=== PATIENT | male | born 1950 | race Caucasian/White ===

== ENCOUNTER 2018-04-30 18:54 | Emergency (ER) | payer OTHER ==
[2018-04-30] MEDS ORDERED: PANTOPRAZOLE 40 MG INJ ONE (19:25)
[2018-04-30] MEDS ORDERED: ONDANSETRON 4 MG/2 ML VIAL ONE (19:25)
[2018-04-30 20:14] LABS: Absolute Lymphocytes (CBC) 1.4 K/uL (0.7-4.9); Absolute Monocytes 0.5 K/uL (0.1-1.3); Absolute Neutrophil 6.9 K/uL (1.8-8.0); Basophils % 0.8 % (0-1.3); Eosinophils % 1.1 % (0-4.4); Hematocrit 42.2 % (39.6-49.0); Lymphocytes % 15.5 % (15.3-44.8); MCH 31.8 pg (27.0-35.0); MPV 10.1 fL (7.6-11.3); Monocytes % 5.1 % (3.3-12.3); RBC Red Blood Cell Count 4.49 M/uL (4.33-5.43)
[2018-04-30 20:20] LABS: Albumin 3.9 g/dL (3.4-5.0); Bilirubin Direct 0.2 mg/dL (0-0.2); Bilirubin Total 0.7 mg/dL (0.2-1.0); Magnesium 2.5 mg/dL (1.8-2.4); Potassium 4.1 mmol/L (3.5-5.1)
--- NOTE | 2018-04-30 21:26 | RAD REPORT ---
EXAM DESCRIPTION: CT - Abdomen Pelvis Wo Contrast - 04/30/2018 9:20 pm CLINICAL HISTORY: Abdominal pain and vomiting COMPARISON: April 2017 TECHNIQUE: Computed axial tomography of the abdomen and pelvis was obtained. IV and oral contrast we re not requested. All CT scans are performed using dose optimization technique as appropriate and may include automated exposure control or mA/KV adjustment according to patient size. FINDINGS: The evaluation of solid organs, vessels and bowel is limited secondary to the lack of con trast administration. The liver, spleen, pancreas, and adrenals appear grossly normal. Small renal cysts are present. Small hemorrhagic left renal cyst is unchanged. The appendix is normal. There is no evidence of diverticulitis. The rectum is distended with stool measuring 9 centimeters. This compresses the bladder. All A large amount stool is present throughout the remainder of the colon. A small hiatal hernia is present. IMPRESSION: The patient likely has a fecal impaction.
[2018-04-30] MEDS ORDERED: MAGNESIUM CITRATE 300 ML BOT ONE (22:29)
[2018-04-30] MEDS ORDERED: FLEET ENEMA ADULT PR ONE (22:29)
[2018-04-30 22:41] LABS: Urine Bacteria <20 /HPF (NONE SEEN); Urine Culture Reflex Order NOT NEEDED; Urine RBC NONE SEEN /HPF (NONE SEEN)
[2018-04-30 22:42] LABS: Urine Blood NEGATIVE (NEG); Urine Glucose NEGATIVE (NEG); Urine Protein 1+ (NEG)
--- NOTE | 2018-05-01 00:29 | ER ---
Nurse's Notes [facility] Name: Jason Johnson Age: 68 yrs Sex: Male : 1950 Arrival Date: 04/30/2018 Time: 18:58 Bed 5 Private MD: Diagnosis: Nausea and vomiting;Fecal impaction;Constipation Presentation: 04/30 19:02 Presenting complaint: EMS states: sudden onset of vomiting while eating at [employer], iw denies abd pain, EMS reports pt was pale and diaphoretic on scene, also had generalized weakness. Transition of care: patient was not received from another setting of care. Onset of symptoms was April 30, 2018. Risk Assessment: Do you want to hurt yourself or someone else? Patient reports no desire to harm self or others. Initial Sepsis Screen: Does the patient meet any 2 criteria? No. Patient's initial sepsis screen is negative. Does the patient have a suspected source of infection? No. Patient's initial sepsis screen is negative. Care prior to arrival: Medication(s) given: zofran 4 mg, IV initiated. 18 GA, in the right antecubital area. 19:02 Method Of Arrival: EMS: [facility] iw 19:02 Acuity: NINA 3 iw Historical: - Allergies: 19:04 No Known Allergies; iw - Home Meds: 05/01 01:06 aspirin 81 mg Oral TbEC 1 tab once daily [Active]; multivitamin Oral tab daily lp1 [Active]; Probiotic oral oral [Active]; - PMHx: 04/30 19:04 constipation; CVA; Hypertension; iw - PSHx: 19:04 Tonsillectomy; iw - Immunization history:: Adult Immunizations. - Social history:: Smoking status: Patient/guardian denies using tobacco. - Ebola Screening: : Patient negative for fever greater than or equal to 101.5 degrees Fahrenheit, and additional compatible Ebola Virus Disease symptoms Patient denies exposure to infectious person Patient denies travel to an Ebola-affected area in the 21 days before illness onset No symptoms or risks identified at this time. Screenin:17 Abuse screen: Denies threats or abuse. Denies injuries from another. Nutritional iw screening: No deficits noted. Tuberculosis screening: No symptoms or risk factors identified. Fall Risk IV access (20 points). Assessment: 19:00 General: Appears uncomfortable, Behavior is calm, cooperative, appropriate for age. ea Pain: Complains of pain in right lower quadrant and left lower quadrant Pain currently is 6 out of 10 on a pain scale. Quality of pain is described as aching, pressure. Neuro: Level of Consciousness is awake, alert, obeys commands, Oriented to person, place, time, situation. Cardiovascular: Heart tones S1 S2 present Patient's skin is warm and dry. Respiratory: Airway is patent Respiratory effort is even, unlabored, Respiratory pattern is regular, symmetrical, Breath sounds are clear bilaterally. GI: Abdomen is non-distended, Bowel sounds present X 4 quads. Reports vomiting. : No signs and/or symptoms were reported regarding the genitourinary system. EENT: No signs and/or symptoms were reported regarding the EENT system. Derm: Skin is pink, warm \\T\\ dry. Musculoskeletal: Range of motion: intact in all extremities. 20:30 Reassessment: Patient and/or family updated on plan of care and expected duration. Pain ea level reassessed. Patient is alert, oriented x 3, equal unlabored respirations, skin warm/dry/pink. 21:08 Reassessment: Patient and/or family updated on plan of care and expected duration. Pain ea level reassessed. Patient is alert, oriented x 3, equal unlabored respirations, skin warm/dry/pink. Pt taken to CT. 22:15 Reassessment: Patient is alert, oriented x 3, equal unlabored respirations, skin lp1 warm/dry/pink. Denies any nausea; Patient states feeling better. 23:45 Reassessment: Patient had small BM at this time; small amount of stool noted to be in lp1 bsc and on floor. 05/01 00:15 Reassessment: Patient walking around room, states "it's still dripping out"; Patient lp1 and linens cleaned and changed at this time. 00:50 Reassessment: Patient is alert, oriented x 3, equal unlabored respirations, skin lp1 warm/dry/pink. Patient states feeling better. Patient states symptoms have improved. Vital Signs: 04/30 19:04 BP 157 / 103; Pulse 57; Resp 16 S; Temp 97.2; Pulse Ox 100% on R/A; Pain 0/10; iw 20:00 BP 163 / 99; Pulse 52; Resp 12; Pulse Ox 100% on R/A; lp1 21:00 BP 170 / 100; Pulse 55; Resp 15; Pulse Ox 100% on R/A; lp1 22:15 BP 145 / 91; Pulse 57; Resp 13; Pulse Ox 100% on R/A; lp1 05/01 00:00 BP 152 / 90; Pulse 54; Resp 18; Pulse Ox 98% on R/A; lp1 ED Course: 04/30 18:58 Patient arrived in ED. iw 19:00 Patient has correct armband on for positive identification. Placed in gown. Bed in low ea position. Call light in reach. Side rails up X2. 19:04 Triage completed. iw 19:04 Arm band placed on. iw 19:07 Felipe Pena PA is PHCP. cp 19:07 Kaden Gutierrez MD is Attending Physician. cp 19:17 Maintain EMS IV. Dressing intact. Good blood return noted. Site clean \\T\\ dry. Gauge \\T\\ iw site: 18 RAC. 19:24 Tiffany Roman RN is Primary Nurse. lp1 19:45 Oral contrast reported to be complete. eh 21:19 Abdomen In Process Unspecified. 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 Provider performing disimpaction. lp1 22:57 Mason Velasquez MD is Attending Physician. cp 23:00 PHCP role handed off by Felipe Pena PA pm1 23:00 Anderson Marcus NP is PHCP. pm1 05/01 01:05 IV discontinued, No redness/swelling at site. Pressure dressing applied. lp1 Administered Medications: 04/30 19:26 Drug: Zofran 4 mg Route: IVP; Site: right antecubital; ea 20:00 Follow up: Response: Marked relief of symptoms lp1 19:26 Drug: ProTONIX 40 mg Route: IVP; Site: right antecubital; ea 20:00 Follow up: Response: No adverse reaction lp1 22:45 Drug: Fleet Enema 133 ml Route: [place]; lp1 05/01 00:59 Follow up: Response: Marked relief of symptoms lp1 04/30 22:50 Drug: Magnesium Citrate Liquid 300 ml Route: PO; lp1 05/01 00:59 Follow up: Response: No adverse reaction lp1 00:30 Drug: soap suds enema 1 per protocol Route: [place]; lp1 01:01 Follow up: Response: Marked relief of symptoms lp1 Outcome: 00:29 Discharge ordered by . pm1 01:05 Discharged to home ambulatory, with friend. lp1 01:05 Condition: good 01:05 Discharge instructions given to patient, Instructed on discharge instructions, follow up and referral plans. medication usage, Demonstrated understanding of instructions, follow-up care, medications, Prescriptions given X 3. 01:06 Patient left the ED. lp1 Signatures: Dispatcher [employer] EDAugustus Ram Irene, RN JAVI iw Tiffany Roman RN RN lp1 Felipe Pena PA PA Anderson Dawson, TOM RECREATION WORKER pm1 Madeleine Snowden RN RN ea Corrections: (The following items were deleted from the chart) 01:01 01:00 soap suds enema 1 per protocol [place] lp1 lp1
--- NOTE | 2018-05-01 00:29 | EDPHYS ---
Physician Documentation [facility] Name: Jason Johnson Age: 68 yrs Sex: Male : 1950 Arrival Date: 04/30/2018 Time: 18:58 Bed 5 Private MD: ED Physician Mason Velasquez HPI: 04/30 19:20 This 68 yrs old Male presents to ER via EMS with complaints of cp Nausea/Vomiting. 19:20 The patient presents to the emergency department with nausea, with "dry heaves", cp vomiting, that is continuous. 19:20 Onset: The symptoms/episode began/occurred today, at 18:00. cp 19:20 Possible causes: unknown. Associated signs and symptoms: Pertinent positives: abdominal cp pain, constipation, Pertinent negatives: fever, GI bleeding, chest pain. Severity of symptoms: in the emergency department the symptoms are unchanged despite EMS interventions. Historical: - Allergies: 19:04 No Known Allergies; iw - Home Meds: 05/01 01:06 aspirin 81 mg Oral TbEC 1 tab once daily [Active]; multivitamin Oral tab daily lp1 [Active]; Probiotic oral oral [Active]; - PMHx: 04/30 19:04 constipation; CVA; Hypertension; iw - PSHx: 19:04 Tonsillectomy; iw - Immunization history:: Adult Immunizations. - Social history:: Smoking status: Patient/guardian denies using tobacco. - Ebola Screening: : Patient negative for fever greater than or equal to 101.5 degrees Fahrenheit, and additional compatible Ebola Virus Disease symptoms Patient denies exposure to infectious person Patient denies travel to an Ebola-affected area in the 21 days before illness onset No symptoms or risks identified at this time. ROS: 19:25 Constitutional: Negative for body aches, chills, fever, poor PO intake. cp 19:25 Eyes: Negative for injury, pain, redness, and discharge. cp 19:25 ENT: Negative for drainage from ear(s), ear pain, sore throat, difficulty swallowing, difficulty handling secretions. 19:25 Cardiovascular: Negative for chest pain, edema, palpitations. 19:25 Respiratory: Negative for cough, shortness of breath, wheezing. 19:25 Abdomen/GI: Positive for nausea, vomiting, constipation, Negative for abdominal pain, diarrhea, hematemesis, black/tarry stool, rectal bleeding. 19:25 Back: Negative for pain at rest, pain with movement, radiated pain. 19:25 : Positive for difficulty urinating. 19:25 Skin: Negative for cellulitis, rash. 19:25 Neuro: Negative for altered mental status, headache, syncope, near syncope, weakness. 19:25 All other systems are negative. Exam: 21:00 ECG was reviewed by the Attending Physician. cp 05/01 00:00 Constitutional: This is a well developed, well nourished patient who is awake, alert, pm1 and in no acute distress. Head/Face: Normocephalic, atraumatic. Eyes: Pupils equal round and reactive to light, extra-ocular motions intact. Lids and lashes normal. Conjunctiva and sclera are non-icteric and not injected. Cornea within normal limits. Periorbital areas with no swelling, redness, or edema. ENT: Nares patent. No nasal discharge, no septal abnormalities noted. Tympanic membranes are normal and external auditory canals are clear. Oropharynx with no redness, swelling, or masses, exudates, or evidence of obstruction, uvula midline. Mucous membranes moist. Neck: Trachea midline, no thyromegaly or masses palpated, and no cervical lymphadenopathy. Supple, full range of motion without nuchal rigidity, or vertebral point tenderness. No Meningismus. Chest/axilla: Normal chest wall appearance and motion. Nontender with no deformity. No lesions are appreciated. Cardiovascular: Regular rate and rhythm with a normal S1 and S2. No gallops, murmurs, or rubs. Normal PMI, no JVD. No pulse deficits. Respiratory: Lungs have equal breath sounds bilaterally, clear to auscultation and percussion. No rales, rhonchi or wheezes noted. No increased work of breathing, no retractions or nasal flaring. Abdomen/GI: Soft, non-tender, with normal bowel sounds. No distension or tympany. No guarding or rebound. No evidence of tenderness throughout. Back: No spinal tenderness. No costovertebral tenderness. Full range of motion. Skin: Warm, dry with normal turgor. Normal color with no rashes, no lesions, and no evidence of cellulitis. MS/ Extremity: Pulses equal, no cyanosis. Neurovascular intact. Full, normal range of motion. Neuro: Orientation: is normal, Motor: is normal, Gait: is steady, at a normal pace, without difficulty. Vital Signs: 04/30 19:04 BP 157 / 103; Pulse 57; Resp 16 S; Temp 97.2; Pulse Ox 100% on R/A; Pain 0/10; iw 20:00 BP 163 / 99; Pulse 52; Resp 12; Pulse Ox 100% on R/A; lp1 21:00 BP 170 / 100; Pulse 55; Resp 15; Pulse Ox 100% on R/A; lp1 22:15 BP 145 / 91; Pulse 57; Resp 13; Pulse Ox 100% on R/A; lp1 05/01 00:00 BP 152 / 90; Pulse 54; Resp 18; Pulse Ox 98% on R/A; lp1 MDM: 04/30 19:10 Patient medically screened. 19:30 Differential diagnosis: gastritis, cholecystitis, pancreatitis, appendicitis, cp diverticulitis, viral gastroenteritis, gastroenteritis, acute IL. 05/01 00:29 Data reviewed: vital signs. Data interpreted: Pulse oximetry: on room air is 100 %. pm1 Interpretation: normal. Counseling: I had a detailed discussion with the patient and/or guardian regarding: the historical points, exam findings, and any diagnostic results supporting the discharge/admit diagnosis, lab results, radiology results, the need for outpatient follow up, to return to the emergency department if symptoms worsen or persist or if there are any questions or concerns that arise at home. 01:15 ED course: Patient positive for large amount of stool with soap suds enema. pm1 04/30 19:16 Order name: Amylase, Serum; Complete Time: 21:20 04/30 19:16 Order name: Basic Metabolic Panel; Complete Time: 21:20 cp 04/30 21:21 Interpretation: Normal except: NA 146; CL 111; BUN 25; CRE 1.90; GFR 36. cp 04/30 19:16 Order name: CBC with Diff; Complete Time: 21:20 cp 04/30 21:21 Interpretation: Normal except: LIZY% 77.5. cp 04/30 19:16 Order name: Creatinine for Radiology; Complete Time: 21:20 cp 04/30 19:16 Order name: Hepatic Function; Complete Time: 21:20 cp 04/30 19:16 Order name: Lipase; Complete Time: 21:20 cp 04/30 19:16 Order name: Urine Microscopic Only; Complete Time: 22:42 cp 04/30 19:16 Order name: Magnesium; Complete Time: 21:20 cp 04/30 19:16 Order name: Troponin I; Complete Time: 21:20 cp 04/30 21:04 Order name: Abdomen ; Complete Time: 21:28 EDMS 04/30 22:36 Order name: Urine Dipstick--Ancillary (enter results); Complete Time: 22:42 mt 04/30 19:16 Order name: IV Saline Lock; Complete Time: 21:07 cp 04/30 19:16 Order name: Labs collected and sent; Complete Time: 21:07 cp 04/30 19:16 Order name: Urine Dipstick-Ancillary (obtain specimen); Complete Time: 22:57 cp 04/30 19:16 Order name: EKG; Complete Time: 19:16 cp 04/30 19:16 Order name: EKG - Nurse/Tech; Complete Time: 21:07 cp EC/22 21:00 Rate is 52 beats/min. Rhythm is regular. OH interval is prolonged at 204 msec. QRS cp interval is normal. QT interval is prolonged at 460 msec. Interpreted by me. Reviewed by me. Administered Medications: 19:26 Drug: Zofran 4 mg Route: IVP; Site: right antecubital; ea 20:00 Follow up: Response: Marked relief of symptoms lp1 19:26 Drug: ProTONIX 40 mg Route: IVP; Site: right antecubital; ea 20:00 Follow up: Response: No adverse reaction lp1 22:45 Drug: Fleet Enema 133 ml Route: [place]; lp1 05/01 00:59 Follow up: Response: Marked relief of symptoms lp1 04/30 22:50 Drug: Magnesium Citrate Liquid 300 ml Route: PO; lp1 05/01 00:59 Follow up: Response: No adverse reaction lp1 00:30 Drug: soap suds enema 1 per protocol Route: [place]; lp1 01:01 Follow up: Response: Marked relief of symptoms lp1 Disposition: 19:46 Co-signature as Attending Physician, Mason Velasquez MD. Disposition: 05/01/18 00:29 Discharged to Home. Impression: Nausea and vomiting, Fecal impaction, Constipation. - Condition is Stable. - Discharge Instructions: Dehydration, Adult, Nausea and Vomiting, Adult. - Prescriptions for Pepcid 20 mg Oral Tablet - take 1 tablet by ORAL route every 12 hours for 10 days; 20 tablet. Zofran 4 mg Oral Tablet - take 1 tablet by ORAL route every 12 hours As needed; 20 tablet. Miralax 17 gram/dose Oral - take 1 packet by ORAL route once daily As needed dilute powder in 8 ounces of water or juice; 30 packet. - Medication Reconciliation Form, Thank You Letter, Antibiotic Education, Prescription Opioid Use form. - Follow up: Private Physician; When: 1 - 2 days; Reason: Recheck today's complaints. - Problem is new. - Symptoms have improved. Signatures: Dispatcher [employer] [facility] Sis Elizalde RN RN iw Tiffany Roman RN RN lp1 Felipe Pena PA PA cp Marinas, Patrick, TOM BILINGUAL BRANCH MANAGER pm1 Madeleine Snowden RN RN ea Starr, Gregory, MD MD gs Corrections: (The following items were deleted from the chart) 04/30 21:04 19:16 Abdomen Pelvis W Con+CT.RAD.BRZ ordered. [facility] 05/01 01:06 00:29 05/01/2018 00:29 Discharged to Home. Impression: Nausea and vomiting; Fecal lp1 impaction; Constipation. Condition is Stable. Discharge Instructions: Dehydration, Adult, Nausea and Vomiting, Adult. Prescriptions for Pepcid 20 mg Oral Tablet - take 1 tablet by ORAL route every 12 hours for 10 days; 20 tablet, Zofran 4 mg Oral Tablet - take 1 tablet by ORAL route every 12 hours As needed; 20 tablet, Miralax 17 gram/dose Oral - take 1 packet by ORAL route once daily As needed dilute powder in 8 ounces of water or juice; 30 packet. and Forms are Medication Reconciliation Form, Thank You Letter, Antibiotic Education, Prescription Opioid Use. Follow up: Private Physician; When: 1 - 2 days; Reason: Recheck today's complaints. Problem is new. Symptoms have improved. pm1
[2018-05-01 01:11] VITALS: TEMP 97.2
[2018-05-01 01:15] VITALS: BP 152/90; O2SAT 98
--- NOTE | 2018-05-01 16:30 | EKG ---
Test Date: 2018-04-30 Test Time: 20:54:27 Shot Packer: KEITH MEASUREMENT RESULTS: Intervals: Rate: 52 DC: 204 QRSD: 86 QT: 460 QTc: 427 [place]: P: 19 DC: 204 QRS: 19 T: -55 INTERPRETIVE STATEMENTS: Sinus bradycardia Nonspecific ST abnormality Abnormal QRS-T angle, consider primary T wave abnormality Abnormal ECG Compared to ECG 05/03/2017 21:38:32 T-wave abnormality now present Sinus rhythm no longer present Left ventricular hypertrophy no longer present ST (T wave) deviation still present Electronically Signed On 05-01-18 16:27:42 CDT by Michael Laguna
== END 2018-05-01 01:06 | disposition home or self-care (01) ==
LOC: ER 18:54
DX: K56.41 Fecal impaction (principal); I10 Essential (primary) hypertension; Z79.82 Long term (current) use of aspirin
CPT/HCPCS: 36415; 74176; 80048; 80076; 82150; 83690; 83735; 84484; 85025; 93005; 96374; 96375; 99284; C9113; J2405; 81003; 81015

== ENCOUNTER 2018-06-13 19:45 | Observation (INO) | payer OTHER ==
[2018-06-13 20:27] LABS: Protime INR 1.13
[2018-06-13 20:28] LABS: Absolute Monocytes 0.4 K/uL (0.1-1.3); Absolute Neutrophil 3.9 K/uL (1.8-8.0); Basophils % 1.3 % (0-1.3); Eosinophils % 2.3 % (0-4.4); Hematocrit 40.5 % (39.6-49.0); Lymphocytes % 30.2 % (15.3-44.8); MCH 32.2 pg (27.0-35.0); MCV 94.8 fL (80-100); MPV 9.9 fL (7.6-11.3); Monocytes % 6.4 % (3.3-12.3); RBC Red Blood Cell Count 4.27 M/uL (4.33-5.43)
[2018-06-13 20:41] LABS: ALT/SGPT 16 U/L (12-78); AST/SGOT 8 U/L (15-37); Albumin 3.6 g/dL (3.4-5.0); Alkaline Phosphatase 75 U/L (45-117); BUN Blood Urea Nitrogen 24 mg/dL (7-18); Bicarbonate 28 mmol/L (21-32); Bilirubin Direct 0.3 mg/dL (0-0.2); Glucose Level 128 mg/dL (74-106); Lipase 127 U/L (73-393); Magnesium 2.7 mg/dL (1.8-2.4); NT PRO-BNP 148 pg/mL (<125); Potassium 3.8 mmol/L (3.5-5.1); Protein, Total 7.5 g/dL (6.4-8.2); Sodium Level 142 mmol/L (136-145); Troponin (Emerg Dept Use Only) < 0.02 ng/mL (0.0-0.045)
--- NOTE | 2018-06-13 20:52 | RAD REPORT ---
EXAM DESCRIPTION: RAD - Chest Single View - 06/13/2018 8:38 pm CLINICAL HISTORY: vomiting Chest pain. COMPARISON: Abdomen 1 View (KUB) dated 01/23/2018; Chest Pa And Lat (2 Views) dated 11/06/2017; Abdome n Acute Series dated 05/03/2017; CHEST SINGLE VIEW dated 06/11/2013 FINDINGS: Portable technique limits examination quality. The lungs are grossly clear. The heart is normal in size. No displaced fractures. IMPRESSION: No acute intrathoracic process suspected.
--- NOTE | 2018-06-13 22:13 | RAD REPORT ---
EXAM DESCRIPTION: CT - Abdomen Pelvis Wo Contrast - 06/13/2018 10:00 pm CLINICAL HISTORY: Abdominal pain. NAUSEA / VOMITING COMPARISON: Abdomen Pelvis Wo Contrast dated 04/30/2018; Abdomen Pelvis Wo Contrast dated 05/04/20 17 TECHNIQUE: CT imaging of the abdomen and pelvis was performed without contrast. Solid organ and vasc ular assessment is limited due to lack of IV contrast. All CT scans are performed using dose optimization technique as appropriate and may include automated exposure control or mA/KV adjustment according to patient size. FINDINGS: The lower lung tavares are clear. The liver, spleen, pancreas, adrenal glands and kidneys are within normal limits for a limited non-co ntrast examination. No bowel obstruction, free air, free fluid or abscess. The appendix is normal. Large amount of stool is seen in the rectum and colon in general. No fracture seen.Mild lower lumbar degenerative changes. IMPRESSION: Fecal retention with probable rectal fecal impaction. A limited non-contrast examination was performed as detailed.
[2018-06-13] MEDS ORDERED: FLEET ENEMA ADULT PR ONE (23:39)
--- NOTE | 2018-06-14 00:01 | ER ---
Nurse's Notes [facility] Name: Jason Johnson Age: 68 yrs Sex: Male : 1950 Arrival Date: 06/13/2018 Time: 19:55 Bed 7 Private MD: Diagnosis: Fecal impaction;Constipation, unspecified Presentation: 06/13 19:48 Presenting complaint: EMS states: They were called to a restaurant where patient was ea complaining of vomiting and was dizzy. Pt reports he was not disoriented. Transition of care: patient was not received from another setting of care. Onset of symptoms was June 13, 2018. Risk Assessment: Do you want to hurt yourself or someone else? Patient reports no desire to harm self or others. Initial Sepsis Screen: Does the patient meet any 2 criteria? No. Patient's initial sepsis screen is negative. Does the patient have a suspected source of infection? No. Patient's initial sepsis screen is negative. Care prior to arrival: None. 19:48 Method Of Arrival: EMS: [facility] ea 19:48 Acuity: NINA 3 ea Triage Assessment: 20:15 General: Appears in no apparent distress. Behavior is calm, cooperative, appropriate ea for age. Pain: Denies pain. EENT: No signs and/or symptoms were reported regarding the EENT system. Neuro: Level of Consciousness is awake, alert, obeys commands, Oriented to person, place, time, situation. Cardiovascular: Heart tones S1 S2 present Patient's skin is warm and dry. Respiratory: Airway is patent Respiratory effort is even, unlabored, Respiratory pattern is regular, symmetrical, Breath sounds are clear bilaterally. GI: Abdomen is non-distended, Bowel sounds present X 4 quads. Reports vomiting. Derm: Skin is pink, warm \T\ dry. Historical: - Allergies: 20:14 No Known Allergies; ea - Home Meds: 20:14 aspirin 81 mg Oral TbEC 1 tab once daily [Active]; multivitamin Oral tab daily ea [Active]; Probiotic Oral [Active]; - PMHx: 20:14 constipation; CVA; Hypertension; ea - PSHx: 20:14 Tonsillectomy; ea - Immunization history:: Adult Immunizations up to date. - Social history:: Smoking status: Patient/guardian denies using tobacco. - Ebola Screening: : No symptoms or risks identified at this time. Screenin:17 Abuse screen: Denies threats or abuse. Nutritional screening: No deficits noted. ea Tuberculosis screening: No symptoms or risk factors identified. Fall Risk None identified. Assessment: 19:48 Reassessment: see triage assessment. tl2 20:30 Reassessment: Lui Mendes [phone] Call with patient disposition. tl2 20:55 Reassessment: Patient and/or family updated on plan of care and expected duration. Pain tl2 level reassessed. Patient is alert, oriented x 3, equal unlabored respirations, skin warm/dry/pink. 23:03 Reassessment: setting up soap suds enema. tl2 06/14 00:39 Reassessment: Patient and/or family updated on plan of care and expected duration. Pain ea level reassessed. Patient is alert, oriented x 3, equal unlabored respirations, skin warm/dry/pink. 01:22 Reassessment: Patient and/or family updated on plan of care and expected duration. Pain ea level reassessed. Patient is alert, oriented x 3, equal unlabored respirations, skin warm/dry/pink. Vital Signs: 06/13 19:58 BP 130 / 95; Pulse 52; Resp 18; Temp 97.6; Pulse Ox 98% ; Weight 79.38 kg; Height 6 ft. ea 2 in. (187.96 cm); Pain 0/10; 20:38 BP 145 / 96; Pulse 56; Resp 12; Pulse Ox 96% on R/A; ea 21:55 BP 143 / 90; Pulse 58; Resp 20; Pulse Ox 98% on R/A; tl2 23:01 BP 151 / 103; Pulse 69; Resp 20; Pulse Ox 99% on R/A; tl2 06/14 00:39 BP 130 / 80; Pulse 60; Resp 18; Temp 97.6; Pulse Ox 99% ; Pain 0/10; ea 01:23 BP 128 / 78; Pulse 58; Resp 18; Pulse Ox 98% on R/A; ea 06/13 19:58 Body Mass Index 22.47 (79.38 kg, 187.96 cm) ea ED Course: 06/13 19:48 Arm band placed on right wrist. Patient placed in an exam room, on a stretcher, on ea pulse oximetry, Emesis basin given. 19:55 Patient arrived in ED. ea 19:57 Felipe Pena PA is PHCP. cp 19:57 Toy Alvarez MD is Attending Physician. cp 19:58 Triage completed. ea 20:05 Inserted saline lock: 20 gauge in right antecubital area, using aseptic technique. tl2 Blood collected. 20:13 Madeleine Snowden, RN is Primary Nurse. ea 20:17 Patient has correct armband on for positive identification. Placed in gown. Bed in low ea position. Call light in reach. Side rails up X2. 20:37 XRAY Chest (1 view) In Process Unspecified. EDMS 22:00 CT Abd/Pelvis - Without Cont: give oral contrast In Process Unspecified. EDMS 22:00 CT completed. Patient tolerated procedure well. Patient moved back from CT. pr 23:59 Tommy Altamirano MD is Hospitalizing Provider. cp 06/14 00:40 No provider procedures requiring assistance completed. Patient admitted, IV remains in ea place. Administered Medications: 06/13 23:40 Drug: Fleet Enema 133 ml Route: WI; ea 06/14 00:30 Follow up: Response: No adverse reaction ea Outcome: 00:00 Decision to Hospitalize by Provider. cp 00:50 Instructed on the need for admit, Demonstrated understanding of instructions. ea 01:28 Condition: stable ea 01:42 Admitted to Med/surg accompanied by nurse, room 209, Report called to receiving nurse ea on second floor 01:53 Patient left the ED. jd3 Signatures: Dispatcher [employer] EDND Felipe Pena PA PA cp Knox, Taylor, RN RN tl2 Juan Flores pr Madeleine Snowden, JAVI RN Mirza Maharaj RN RN jd3
--- NOTE | 2018-06-14 00:01 | EDPHYS ---
Physician Documentation [facility] Name: Jason Johnson Age: 68 yrs Sex: Male : 1950 Arrival Date: 06/13/2018 Time: 19:55 Bed 7 Private MD: ED Physician Toy Alvarez HPI: 06/13 20:10 This 68 yrs old Male presents to ER via EMS with complaints of Vomiting. cp 20:10 The patient presents to the emergency department with nausea, that is mild, vomiting, 2 cp times today, constipation. Onset: The symptoms/episode began/occurred just prior to arrival. Possible causes: unknown. Associated signs and symptoms: Pertinent negatives: abdominal pain, diarrhea, fever, GI bleeding, chest pain. Severity of symptoms: in the emergency department the symptoms have improved mildly. Historical: - Allergies: 20:14 No Known Allergies; ea - Home Meds: 20:14 aspirin 81 mg Oral TbEC 1 tab once daily [Active]; multivitamin Oral tab daily ea [Active]; Probiotic Oral [Active]; - PMHx: 20:14 constipation; CVA; Hypertension; ea - PSHx: 20:14 Tonsillectomy; ea - Immunization history:: Adult Immunizations up to date. - Social history:: Smoking status: Patient/guardian denies using tobacco. - Ebola Screening: : No symptoms or risks identified at this time. ROS: 20:13 Constitutional: Negative for body aches, chills, fever, poor PO intake. cp 20:13 Eyes: Negative for injury, pain, redness, and discharge. cp 20:13 ENT: Negative for drainage from ear(s), ear pain, sore throat, difficulty swallowing, difficulty handling secretions. 20:13 Cardiovascular: Negative for chest pain, edema, palpitations. 20:13 Respiratory: Negative for cough, shortness of breath, wheezing. 20:13 Abdomen/GI: Positive for vomiting, constipation, Negative for abdominal pain, diarrhea, anorexia, black/tarry stool, rectal bleeding. 20:13 Skin: Negative for cellulitis, rash. 20:13 Neuro: Negative for altered mental status, headache, weakness. 20:13 All other systems are negative. Exam: 20:15 ECG was reviewed by the Attending Physician. cp 20:20 Constitutional: The patient appears in no acute distress, alert, awake, cp non-diaphoretic, non-toxic, well developed, well nourished. 20:20 Head/Face: Normocephalic, atraumatic. Eyes: Pupils equal round and reactive to light, cp extra-ocular motions intact. Lids and lashes normal. Conjunctiva and sclera are non-icteric and not injected. Cornea within normal limits. Periorbital areas with no swelling, redness, or edema. ENT: Nares patent. No nasal discharge, no septal abnormalities noted. Tympanic membranes are normal and external auditory canals are clear. Oropharynx with no redness, swelling, or masses, exudates, or evidence of obstruction, uvula midline. Mucous membranes moist. Chest/axilla: Normal chest wall appearance and motion. Nontender with no deformity. No lesions are appreciated. 20:20 Cardiovascular: Rate: bradycardic, Rhythm: regular, Edema: is not appreciated, JVD: is not appreciated. 20:20 Respiratory: the patient does not display signs of respiratory distress, Respirations: normal, no use of accessory muscles, no retractions, no splinting, no tachypnea, labored breathing, is not present, Breath sounds: are clear throughout, no decreased breath sounds, no stridor, no wheezing. 20:20 Abdomen/GI: Inspection: abdomen appears normal, Bowel sounds: active, all quadrants, Palpation: abdomen is soft and non-tender, in all quadrants, rebound tenderness, is not appreciated, voluntary guarding, is not appreciated, involuntary guarding, is not appreciated. 20:20 Back: CVA tenderness, is absent. 20:20 Skin: cellulitis, is not appreciated, no rash present. 20:20 Neuro: Orientation: to person, place \T\ time. Cerebellar function: is grossly normal, Motor: moves all fours, strength is normal, Sensation: no obvious gross deficits. Vital Signs: 19:58 BP 130 / 95; Pulse 52; Resp 18; Temp 97.6; Pulse Ox 98% ; Weight 79.38 kg; Height 6 ft. ea 2 in. (187.96 cm); Pain 0/10; 20:38 BP 145 / 96; Pulse 56; Resp 12; Pulse Ox 96% on R/A; ea 21:55 BP 143 / 90; Pulse 58; Resp 20; Pulse Ox 98% on R/A; tl2 23:01 BP 151 / 103; Pulse 69; Resp 20; Pulse Ox 99% on R/A; tl2 06/14 00:39 BP 130 / 80; Pulse 60; Resp 18; Temp 97.6; Pulse Ox 99% ; Pain 0/10; ea 01:23 BP 128 / 78; Pulse 58; Resp 18; Pulse Ox 98% on R/A; ea 06/13 19:58 Body Mass Index 22.47 (79.38 kg, 187.96 cm) ea MDM: 06/13 19:57 Patient medically screened. cp 22:20 Data reviewed: vital signs, nurses notes, lab test result(s), EKG, radiologic studies, cp CT scan, plain films. 22:20 Test interpretation: by ED physician or midlevel provider: ECG. cp 23:55 Physician consultation: Tommy Altamirano MD was called at 23:55, was contacted at 23:55, cp regarding admission, to the medical/surgical unit. patient's condition. 06/13 20:02 Order name: Basic Metabolic Panel cp 06/13 20:02 Order name: CBC with Diff cp 06/13 20:02 Order name: LFT's cp 06/13 20:02 Order name: Magnesium cp 06/13 20:02 Order name: NT PRO-BNP cp 06/13 20:02 Order name: PT-INR; Complete Time: 20:54 cp 06/13 22:18 Interpretation: Abnormal: PT 13.3. cp 06/13 20:02 Order name: Troponin (emerg Dept Use Only); Complete Time: 20:54 cp 06/13 20:02 Order name: XRAY Chest (1 view); Complete Time: 20:54 cp 06/13 20:02 Order name: Lipase; Complete Time: 20:54 cp 06/13 20:03 Order name: Basic Metabolic Panel; Complete Time: 20:54 EDMS 06/13 20:55 Interpretation: Normal except: CL 108; GLUC 128; BUN 24; CRE 2.00; GFR 33. cp 06/13 20:03 Order name: CBC with Automated Diff; Complete Time: 20:54 EDMS 06/13 22:17 Interpretation: Normal except: RBC 4.27. cp 06/13 20:03 Order name: Liver (Hepatic) Function; Complete Time: 20:54 EDMS 06/13 20:03 Order name: Magnesium; Complete Time: 20:54 EDMS 06/13 20:03 Order name: NT PRO-BNP; Complete Time: 20:54 EDMS 06/13 20:02 Order name: EKG; Complete Time: 20:03 cp 06/13 20:02 Order name: Cardiac monitoring; Complete Time: 20:04 cp 06/13 20:02 Order name: EKG - Nurse/Tech; Complete Time: 20:05 cp 06/13 20:02 Order name: IV Saline Lock; Complete Time: 20:04 cp 06/13 20:02 Order name: Labs collected and sent; Complete Time: 20:04 cp 06/13 20:02 Order name: O2 Per Protocol; Complete Time: 20:04 cp 06/13 20:02 Order name: O2 Sat Monitoring; Complete Time: 20:05 cp 06/13 20:56 Order name: CT Abd/Pelvis - Without Cont: give oral contrast; Complete Time: 22:17 cp 06/13 22:21 Order name: Misc. Order: soap suds enema; Complete Time: 23:17 cp EC:15 Rate is 49 beats/min. Rhythm is regular. OK interval is prolonged at 212 msec. QRS cp interval is normal. QT interval is normal. Interpreted by me. Reviewed by me. Administered Medications: 23:40 Drug: Fleet Enema 133 ml Route: OK; ea 06/14 00:30 Follow up: Response: No adverse reaction ea Disposition: 01:58 Co-signature as Attending Physician, Toy Alvarez MD. pkl Disposition: 06/14/18 00:00 Hospitalization ordered by Tommy Altamirano for Observation. Preliminary diagnosis are Fecal impaction, Constipation, unspecified. - Bed requested for Telemetry/MedSurg (observation). - Status is Observation. jd3 - Condition is Stable. - Problem is an acute exacerbation. - Symptoms have improved. UTI on Admission? No Signatures: Dispatcher [employer] EDOH Toy Alvarez MD MD pkl Felipe Pena PA PA cp Garcia, Cindy, Madeleine Woodard RN, RN RN ea Davies, Jonathon, RN RN jd3 Corrections: (The following items were deleted from the chart) 06/13 20:58 20:26 Abdomen Pelvis W Con+CT.RAD.BRZ ordered. EDOH EDOH 06/14 00:28 00:00 Hospitalization Ordered by Tommy Altamirano MD for Observation. Preliminary cg diagnosis is Fecal impaction; Constipation, unspecified. Bed requested for Telemetry/MedSurg (observation). Status is Observation. Condition is Stable. Problem is an acute exacerbation. Symptoms have improved. UTI on Admission? No. cp 01:53 00:28 06/14/2018 00:00 Hospitalization Ordered by Tommy Altamirano MD for Observation. jd3 Preliminary diagnosis is Fecal impaction; Constipation, unspecified. Bed requested for Telemetry/MedSurg (observation). Status is Observation. Condition is Stable. Problem is an acute exacerbation. Symptoms have improved. UTI on Admission? No. cg
--- NOTE | 2018-06-14 01:29 | P.HP ---
Certification for Inpatient Patient admitted to: Observation With expected LOS: <2 Midnights Practitioner: I am a practitioner with admitting privileges, knowledge of patient current condition, hospital course, and medical plan of care. Services: Services provided to patient in accordance with Admission requirements found in Title 42 Section 412.3 of the Code of Federal Regulations Patient History Date of Service: 06/14/18 Reason for admission: Fecal impaction History of Present Illness: Mr. Johnson is a 68-year-old gentleman with history of hypertension, CKD, CVA, chronic constipation who was having dinner in a local restaurant last night, when he became nauseated and subsequently had a vomiting episode. He was feeling also dizzy as well. EMS was called and then he was transferred to ER. There are no history of fever or chills. He denied any chest pain or shortness of breath. Lab work remarkable for normal WBC count, creatinine 2.0 (about his baseline). CT abdomen and pelvis consistent with large amounts of stool retention with rectal fecal impaction. Allergies No Known Drug Allergies Allergy (Unverified 03/01/15 15:48) Unknown No Known Allergi Allergy (Uncoded 05/04/17 08:07) Unknown No Known Allergies Allergy (Uncoded 05/01/18 01:10) Unknown Home Medications: Amlodipine Besylate [Norvasc] 10 mg PO DAILY #0 tablet 07/26/12 Aspirin [Aspirin EC 81 MG] 162 mg PO DAILY #0 tablet. 07/26/12 Valsartan [Diovan] 160 mg PO DAILY #0 tablet 07/26/12 Atorvastatin Calcium [Lipitor] 40 mg PO DAILY #0 tablet 07/30/12 Hydralazine HCl 25 mg PO TID #0 tablet 07/30/12 Acetaminophen [Tylenol*] 650 mg PO Q6HP PRN #0 tab 06/02/13 levoFLOXacin [Levaquin*] 250 mg PO DAILY #5 tab 06/02/13 - Past Medical/Surgical History Diabetic: No -: CVA -: HTN -: renal insufficiency -: nava Hip FX -: broken ankle R -: tonsillectomy -: nava reconstructive hip SX -: SX R ankle with pins - Social History Smoking Status: Former smoker Alcohol use: No CD- Drugs: No Caffeine use: Yes Place of Residence: Home Review of Systems 10-point ROS is otherwise unremarkable Physical Examination - Physical Exam General: Alert, In no apparent distress HEENT: Atraumatic, PERRLA, Mucous membr. moist/pink, EOMI, Sclerae nonicteric Neck: Supple, 2+ carotid pulse no bruit, No LAD, Without JVD or thyroid abnormality Respiratory: Clear to auscultation bilaterally, Normal air movement Cardiovascular: Regular rate/rhythm, Normal S1 S2 Gastrointestinal: Normal bowel sounds, No tenderness Musculoskeletal: No tenderness Integumentary: No rashes Neurological: Normal speech, Normal strength at 5/5 x4 extr, Normal tone, Normal affect Lymphatics: No axilla or inguinal lymphadenopathy - Studies Laboratory Data (last 24 hrs) 06/13/18 20:00: PT 13.3 H, INR 1.13 06/13/18 20:00: WBC 6.6, Hgb 13.8, Hct 40.5, Plt Count 184 06/13/18 20:00: Sodium 142, Potassium 3.8, BUN 24 H, Creatinine 2.00 H, Glucose 128 H, Magnesium 2.7 H, Total Bilirubin 1.0, AST 8 L, ALT 16, Alkaline Phosphatase 75, Lipase 127 Assessment and Plan - Problems (Diagnosis) (1) CKD (chronic kidney disease) Current Visit: Yes Status: Acute Qualifiers: Chronic kidney disease stage: stage 3 (moderate) Qualified Code(s): N18.3 - Chronic kidney disease, stage 3 (moderate) (2) Nausea & vomiting Current Visit: Yes Status: Acute Qualifiers: Vomiting type: unspecified Vomiting Intractability: non-intractable Qualified Code(s): R11.2 - Nausea with vomiting, unspecified (3) Constipation Current Visit: Yes Status: Acute Qualifiers: Constipation type: chronic idiopathic constipation Qualified Code(s): K59.04 - Chronic idiopathic constipation (4) Fecal impaction Current Visit: Yes Status: Acute - Plan The patient will be admitted under observation due to fecal impaction. Digital disimpaction with subsequent mineral oil enema have been trying with partial results. Will continue with overall protocol in order to disimpact the patient to improve his symptoms. - Advance Directives Does patient have a Living Will: No Does patient have a Durable POA for Healthcare: Yes - Code Status/Comfort Care Code Status Assessed: Yes Code Status: Full Code
[2018-06-14] MEDS ORDERED: ONDANSETRON 4 MG/2 ML VIAL IV PRN (01:46)
[2018-06-14 02:37] VITALS: BMI 23.0
[2018-06-14] MEDS: NA CHLORIDE 0.9% 1,000 ML IV SCH ×2 (02:58→12:00)
[2018-06-14 04:30] VITALS: BP 144/78; TEMP 97.8
[2018-06-14] MEDS ORDERED: INFLUENZA VACCINE (for 3y+) 0.5 ML DOSE IMVAC ONE (06:00)
[2018-06-14] MEDS ORDERED: PNEUMOCOCCAL VACCINE 0.5 ML IMVAC ONE (06:00)
--- NOTE | 2018-06-14 07:50 | EKG ---
Test Date: 2018-06-13 Test Time: 20:06:13 Pharmacy Laboratory Technician: KELLY MEASUREMENT RESULTS: Intervals: Rate: 49 NV: 212 QRSD: 90 QT: 452 QTc: 408 [place]: P: 43 NV: 212 QRS: -11 T: -20 INTERPRETIVE STATEMENTS: Sinus bradycardia with 1st degree AV block Nonspecific ST abnormality Abnormal ECG Compared to ECG 04/30/2018 20:54:27 First degree AV block now present T-wave abnormality no longer present ST (T wave) deviation still present Electronically Signed On 06-14-18 07:48:44 CDT by Michael Laguna
--- NOTE | 2018-06-14 09:16 | P.DS ---
Admission Date: 06/14/18 Discharge Date: 06/14/18 Primary Care Provider: Dr. Stephens; GI-Dr. Bustamante Disposition: ROUTINE DISCHARGE Discharge Condition: GOOD Reason for Admission: Fecal impaction Procedures: CT scan: COMPARISON: Abdomen Pelvis Wo Contrast dated 04/30/2018; Abdomen Pelvis Wo Contrast dated 05/04/2017 TECHNIQUE: CT imaging of the abdomen and pelvis was performed without contrast. Solid organ and vascular assessment is limited due to lack of IV contrast. All CT scans are performed using dose optimization technique as appropriate and may include automated exposure control or mA/KV adjustment according to patient size. FINDINGS: The lower lung tavares are clear. The liver, spleen, pancreas, adrenal glands and kidneys are within normal limits for a limited non-contrast examination. No bowel obstruction, free air, free fluid or abscess. The appendix is normal. Large amount of stool is seen in the rectum and colon in general. No fracture seen.Mild lower lumbar degenerative changes. IMPRESSION: Fecal retention with probable rectal fecal impaction. Medical Problem List: Nausea and vomiting secondary to fecal retention with impaction, resolved Chronic constipation Chronic renal disease Hypertension History CVA Brief History of Present Illness: 68-year-old male presented emergency room with nausea and vomiting. This occurred after he ate supper. Patient was evaluated in the emergency room. CT scan revealed fecal retention with suspected impaction. Patient was admitted for treatment. Patient had mineral oil enema along with manual disimpaction. Hospital Course: Patient presented with nausea, vomiting secondary to fecal retention with impaction. Patient with history of chronic constipation. Patient seen by GI as an outpatient. Patient had mineral oil enema along with manual disimpaction. His symptoms improved. Patient had significant output of stool. Patient able tolerate his diet. Patient reports that he sees GI as an outpatient. He had a colonoscopy in the past year. He reports that this was unremarkable. At discharge he will continue with his current medications including Metamucil and Amitza one pill daily. Patient will need to follow up with GI in the next 1-2 weeks. Patient has a scheduled appointment. Patient may require colonoscopy in the future to further address. Patient continue with a soft diet then advance to a renal diet. Education on constipation will be provided. Patient has chronic renal disease. This remained stable. Patient will follow up with nephrology as an outpatient to further monitor. Future medications will need to be renally dosed. Recommendation on no further use of nonsteroidal anti-inflammatories. Recommendation to recheck lab-BMP in 1-2 weeks to monitor his progress. Patient has hypertension. Patient will continue with his medications- carvedilol 3.125 mg 1 pill twice daily, hydrochlorothiazide 25 mg daily and Avapro 300 mg daily. Recommendation is to maintain blood pressures less 150/ 80. Further adjustment can be done by his PCP. Patient has history of CVA. Patient will continue with his medication-aspirin 81 mg daily. Vital Signs/Physical Exam: Temp Pulse Resp BP Pulse Ox 97.8 F 71 20 144/78 H 100 06/14/18 04:00 06/14/18 04:00 06/14/18 04:00 06/14/18 04:00 06/14/18 04:00 General: Alert, In no apparent distress, Oriented x3, Cooperative HEENT: Atraumatic Neck: Supple Respiratory: Clear to auscultation bilaterally, Normal air movement Cardiovascular: Normal pulses, Regular rate/rhythm Gastrointestinal: Normal bowel sounds, Soft and benign, Non-distended, No ascites, No tenderness, No masses, No rebound, No guarding Musculoskeletal: No erythema, No tenderness, No warmth Integumentary: No tenderness/swelling, No erythema, No warmth, No cyanosis Neurological: Normal speech, Normal strength at 5/5 x4 extr, Normal tone, Normal affect Laboratory Data at Discharge: WBC 6.6 K/uL (4.3-10.9) 06/13/18 20:00 Hgb 13.8 g/dL (13.6-17.9) 06/13/18 20:00 Hct 40.5 % (39.6-49.0) 06/13/18 20:00 Plt Count 184 K/uL (152-406) 06/13/18 20:00 PT 13.3 SECONDS (9.5-12.5) H 06/13/18 20:00 INR 1.13 06/13/18 20:00 Sodium 142 mmol/L (136-145) 06/13/18 20:00 Potassium 3.8 mmol/L (3.5-5.1) 06/13/18 20:00 BUN 24 mg/dL (7-18) H 06/13/18 20:00 Creatinine 2.00 mg/dL (0.55-1.3) H 06/13/18 20:00 Glucose 128 mg/dL (74-106) H 06/13/18 20:00 Magnesium 2.7 mg/dL (1.8-2.4) H 06/13/18 20:00 Total Bilirubin 1.0 mg/dL (0.2-1.0) 06/13/18 20:00 AST 8 U/L (15-37) L 06/13/18 20:00 ALT 16 U/L (12-78) 06/13/18 20:00 Alkaline Phosphatase 75 U/L (45-117) 06/13/18 20:00 Lipase 127 U/L (73-393) 06/13/18 20:00 Home Medications: Aspirin 81 mg PO TID 06/14/18 Carvedilol [Coreg] 3.125 mg PO BID 06/14/18 Irbesartan [Avapro] 300 mg PO DAILY 06/14/18 Omeprazole 20 mg PO DAILY 06/14/18 hydroCHLOROthiazide [Hydrochlorothiazide] 25 mg PO DAILY 06/14/18 Patient Discharge Instructions: 1. Patient will need a follow up with his PCP in 1 week to follow up this hospitalization. 2. Patient presented with nausea , vomiting secondary to fecal retention with impaction. Patient with history of chronic constipation. Patient seen by GI as an outpatient. Patient had mineral oil enema along with manual disimpaction. His symptoms improved. Patient had significant output of stool. Patient able tolerate his diet. Patient reports that he sees GI as an outpatient. He had a colonoscopy in the past year. He reports that this was unremarkable. At discharge he will continue with his current medications including Metamucil and Amitza one pill daily. Patient will need to follow up with GI in the next 1-2 weeks. Patient has a scheduled appointment. Patient may require colonoscopy in the future to further address. Patient continue with a soft diet then advance to a renal diet. Education on constipation will be provided. 3. Patient has chronic renal disease. This remained stable. Patient will follow up with nephrology as an outpatient to further monitor. Future medications will need to be renally dosed. Recommendation on no further use of nonsteroidal anti-inflammatories. Recommendation to recheck lab-BMP in 1-2 weeks to monitor his progress. 4. Patient has hypertension. Patient will continue with his medications- carvedilol 3.125 mg 1 pill twice daily, hydrochlorothiazide 25 mg daily and Avapro 300 mg daily. Recommendation is to maintain blood pressures less 150/ 80. Further adjustment can be done by his PCP. 5. Patient has history of CVA. Patient will continue with his medication-aspirin 81 mg daily. Diet: Soft GI advanced to renal renal diet Activity: Ad sada Time spent managing pt's care (in minutes): 55
[2018-06-14 10:54] VITALS: O2SAT 99
[2018-06-14] MEDS ORDERED: ASPIRIN 81 MG CHEWABLE TABLET PO SCH (14:00)
[2018-06-14] MEDS ORDERED: CARVEDILOL 3.125 MG TAB PO SCH (21:00)
[2018-06-15] MEDS ORDERED: PANTOPRAZOLE 40MG TABLET PO SCH (06:30)
[2018-06-15] MEDS ORDERED: IRBESARTAN 150 MG TAB PO SCH (09:00)
[2018-06-15] MEDS ORDERED: hydroCHLOROthiazide 25 MG TAB PO SCH (09:00)
== END 2018-06-14 12:45 | disposition home or self-care (01) ==
LOC: ER 19:45 → ERHOLD 06-14 00:14 → 2ND 06-14 01:22
PROVIDERS: ADMIT Internal Medicine; ATTEND Internal Medicine
DX: K59.00 Constipation, unspecified (principal); I12.9 Hypertensive chronic kidney disease with stage 1 through stage 4 chronic kidney disease, or unspecified chronic kidney disease; N18.3 Chronic kidney disease, stage 3 (moderate); Z23 Encounter for immunization; Z86.73 Personal history of transient ischemic attack (TIA), and cerebral infarction without residual deficits
CPT/HCPCS: 36415; 71045; 74176; 80048; 80076; 83690; 83735; 83880; 84484; 85025; 85610; 87493; 90670; 93005; 99285; G0008; G0009; G0378 ×2; J7030; Q2035

== ENCOUNTER 2018-08-24 13:23 | Emergency (ER) | payer OTHER ==
[2018-08-24 13:56] LABS: Absolute Lymphocytes (CBC) 1.6 K/uL (0.7-4.9); Absolute Monocytes 0.6 K/uL (0.1-1.3); Absolute Neutrophil 5.8 K/uL (1.8-8.0); Basophils % 0.6 % (0-1.3); Eosinophils % 1.4 % (0-4.4); Hematocrit 41.1 % (39.6-49.0); Lymphocytes % 19.4 % (15.3-44.8); MCH 32.5 pg (27.0-35.0); MCV 94.6 fL (80-100); MPV 9.9 fL (7.6-11.3); Monocytes % 7.3 % (3.3-12.3); RBC Red Blood Cell Count 4.34 M/uL (4.33-5.43)
[2018-08-24 14:01] LABS: Protime INR 1.13
[2018-08-24 14:25] LABS: ALT/SGPT 16 U/L (12-78); AST/SGOT 10 U/L (15-37); Albumin 3.6 g/dL (3.4-5.0); Alkaline Phosphatase 84 U/L (45-117); BUN Blood Urea Nitrogen 23 mg/dL (7-18); Bicarbonate 27 mmol/L (21-32); Bilirubin Direct 0.2 mg/dL (0-0.2); Bilirubin Total 0.8 mg/dL (0.2-1.0); Glucose Level 113 mg/dL (74-106); Magnesium 2.6 mg/dL (1.8-2.4); NT PRO-BNP 183 pg/mL (<125); Potassium 3.4 mmol/L (3.5-5.1); Protein, Total 7.3 g/dL (6.4-8.2); Sodium Level 140 mmol/L (136-145); Troponin (Emerg Dept Use Only) < 0.02 ng/mL (0.0-0.045)
--- NOTE | 2018-08-24 14:31 | RAD REPORT ---
EXAM DESCRIPTION: CT - CTHCSPWOC - 08/24/2018 2:17 pm CLINICAL HISTORY: Syncope, fall, head and neck injury COMPARISON: None. TECHNIQUE: Axial 5 mm thick images of the head were obtained. Axial 2 mm thick images of the cervic al spine were obtained with sagittal and coronal reconstruction images generated and reviewed. All CT scans are performed using dose optimization technique as appropriate and may include automated exposure control or mA/KV adjustment according to patient size. FINDINGS: No intracranial hemorrhage, mass, edema or acute intracranial finding. No suspicion for acute infarct ion. Moderate severity atrophy and chronic ischemic changes are present. Ventricles are in proportion to volume loss. Of the Mastoid air cells and paranasal sinuses are clear. No globe or orbit abnormal ity seen. Cervical body height and alignment are normal. Significant disc space narrowing at C4-5 and C5-6. No fracture or acute bony abnormality. Central canal detail is inherently limited. Facet joint degenerat fariba changes are present. Left bony foraminal encroachment at C3-4 with significant right foraminal en croachment at C4-5. No paraspinal mass or hematoma. IMPRESSION: Moderate severity atrophy and chronic ischemic change with no acute intracranial finding . Cervical spine degenerative change as detailed. No acute finding.
--- NOTE | 2018-08-24 14:33 | RAD REPORT ---
EXAM DESCRIPTION: RAD - Chest Single View - 08/24/2018 2:19 pm CLINICAL HISTORY: Syncope, fall, chest pain COMPARISON: June 13 TECHNIQUE: AP portable chest image was obtained 1402 hours . FINDINGS: Lungs are clear. Heart and vasculature are normal. No measurable pleural effusion and no p neumothorax. No acute bony abnormality seen. No acute aortic findings suspected. IMPRESSION: No acute cardiopulmonary process. No significant interval change.
--- NOTE | 2018-08-24 16:48 | EDPHYS ---
Physician Documentation [facility] Name: Jason Johnson Age: 68 yrs Sex: Male : 1950 Arrival Date: 08/24/2018 Time: 13:34 Bed 6 Private MD: ED Physician Mason Velasquez HPI: 08/24 16:51 This 68 yrs old Male presents to ER via Ambulatory with complaints of Syncope.gs 16:51 The patient has experienced syncope, became unresponsive. Onset: The symptoms/episode gs began/occurred just prior to arrival. Duration: This was a single episode. Context: the episode(s) was witnessed, by family, occurred at a restaurant, occurred while the patient was eating. Associated injury: Head/face:. Associated signs and symptoms: Pertinent negatives: abdominal pain, chest pain. Current symptoms: Currently, the patient is not experiencing any symptoms. It is unknown whether or not the patient has had similar symptoms in the past. PT STATES HE DID NOT PASS OUT OUT ONLY GOT VERY WEAK AND DIZZY SUDDENLY BUT DID NIT PASS OUT, EMS SAID OTHERWISE.. Historical: - Allergies: 13:41 No Known Allergies; aj1 - Home Meds: 13:41 aspirin 81 mg Oral TbEC 1 tab once daily [Active]; multivitamin Oral tab daily aj1 [Active]; Probiotic Oral [Active]; - PMHx: 13:41 constipation; CVA; Hypertension; aj1 - Immunization history:: Flu vaccine is up to date. - Social history:: Smoking status: Patient/guardian denies using tobacco. - Ebola Screening: : Patient denies travel to an Ebola-affected area in the 21 days before illness onset. ROS: 16:51 Cardiovascular: Negative for chest pain, palpitations. gs 16:51 Respiratory: Negative for pleurisy, shortness of breath. 16:51 All other systems are negative. Exam: 16:51 Head/Face: Normocephalic, atraumatic. Eyes: Pupils equal round and reactive to light, gs extra-ocular motions intact. Lids and lashes normal. Conjunctiva and sclera are non-icteric and not injected. Cornea within normal limits. Periorbital areas with no swelling, redness, or edema. ENT: Nares patent. No nasal discharge, no septal abnormalities noted. Tympanic membranes are normal and external auditory canals are clear. Oropharynx with no redness, swelling, or masses, exudates, or evidence of obstruction, uvula midline. Mucous membranes moist. Neck: Trachea midline, no thyromegaly or masses palpated, and no cervical lymphadenopathy. Supple, full range of motion without nuchal rigidity, or vertebral point tenderness. No Meningismus. Chest/axilla: Normal chest wall appearance and motion. Nontender with no deformity. No lesions are appreciated. Cardiovascular: Regular rate and rhythm with a normal S1 and S2. No gallops, murmurs, or rubs. Normal PMI, no JVD. No pulse deficits. Respiratory: Lungs have equal breath sounds bilaterally, clear to auscultation and percussion. No rales, rhonchi or wheezes noted. No increased work of breathing, no retractions or nasal flaring. Abdomen/GI: Soft, non-tender, with normal bowel sounds. No distension or tympany. No guarding or rebound. No evidence of tenderness throughout. Back: No spinal tenderness. No costovertebral tenderness. Full range of motion. Skin: Warm, dry with normal turgor. Normal color with no rashes, no lesions, and no evidence of cellulitis. MS/ Extremity: Pulses equal, no cyanosis. Neurovascular intact. Full, normal range of motion. Neuro: Awake and alert, GCS 15, oriented to person, place, time, and situation. Cranial nerves II-XII grossly intact. Motor strength 5/5 in all extremities. Sensory grossly intact. Cerebellar exam normal. Normal gait. 16:51 Constitutional: The patient appears alert, awake. 16:51 ECG was reviewed by the Attending Physician. Vital Signs: 13:41 BP 157 / 101; Pulse 60; Resp 20; Temp 98.5; Pulse Ox 98% on R/A; Weight 86.18 kg (R); aj1 Height 6 ft. 2 in. (187.96 cm) (R); Pain 4/10; 14:43 BP 163 / 101; Pulse 62; Resp 18; Pulse Ox 99% on R/A; aj1 15:56 BP 155 / 100; Pulse 72; Resp 18; Pulse Ox 98% on R/A; la1 16:45 BP 162 / 101; Pulse 65; Resp 18; Pulse Ox 98% ; aj1 17:29 BP 160 / 100; Pulse 69; Resp 20; Temp 97; aj1 13:41 Body Mass Index 24.39 (86.18 kg, 187.96 cm) aj1 NIH Stroke Scale Scores: 16:51 NIHSS Score: 0 gs MDM: 13:42 Patient medically screened. 16:51 Differential Diagnosis: cardiac arrhythmia, cerebrovascular accident, idiopathic gs syncope, seizure, vasovagal episode. Data reviewed: vital signs, nurses notes. Response to treatment: the patient's symptoms have resolved after treatment, PT WANTS TO BE DISCHARGED I RECOMMENDED ADMISSION TO OBSERVATION SAID NO SAID WILL SEE PCP TOMORROW, PT STEADY GAIT ASYMPTOMATIC. 08/24 13:42 Order name: Basic Metabolic Panel 08/24 13:42 Order name: CBC with Diff 08/24 13:42 Order name: LFT's 08/24 13:42 Order name: Magnesium 08/24 13:42 Order name: NT PRO-BNP 08/24 13:42 Order name: PT-INR 08/24 13:42 Order name: Troponin (emerg Dept Use Only) 08/24 14:00 Order name: CBC with Automated Diff; Complete Time: 16:34 EDMO 08/24 14:03 Order name: Protime (+INR); Complete Time: 16:34 EDMO 08/24 14:25 Order name: Basic Metabolic Panel; Complete Time: 16:34 EDMO 08/24 14:25 Order name: Liver (Hepatic) Function; Complete Time: 16:34 EDMO 08/24 14:25 Order name: Troponin (Emerg Dept Use Only); Complete Time: 16:34 EDMO 08/24 14:25 Order name: NT PRO-BNP; Complete Time: 16:34 EDMO 08/24 14:25 Order name: Magnesium; Complete Time: 16:34 EDMO 08/24 13:42 Order name: XRAY Chest (1 view) 08/24 13:42 Order name: EKG; Complete Time: 13:43 08/24 13:42 Order name: Cardiac monitoring; Complete Time: 13:43 08/24 13:42 Order name: EKG - Nurse/Tech; Complete Time: 13:43 08/24 13:42 Order name: IV Saline Lock; Complete Time: 13:43 08/24 13:42 Order name: Labs collected and sent; Complete Time: 13:48 08/24 13:42 Order name: O2 Per Protocol; Complete Time: 13:43 gs 08/24 13:42 Order name: O2 Sat Monitoring; Complete Time: 13:48 gs 08/24 13:42 Order name: CT Head C Spine 08/24 14:31 Order name: CT; Complete Time: 16:34 EDMS 08/24 14:33 Order name: RAD; Complete Time: 16:34 EDMS EC:51 Rate is 56 beats/min. Rhythm is regular. NM interval is prolonged. QRS interval is gs normal. T waves are Normal. No ST changes noted. Clinical impression: Abnormal EKG without significant change. Interpreted by me. Administered Medications: No medications were administered Disposition: 08/24/18 16:47 Discharged to Home. Impression: Syncope and collapse. - Condition is Stable. - Discharge Instructions: Near-Syncope, Syncope, Cardiac Event Monitoring. - Medication Reconciliation Form, Thank You Letter, Antibiotic Education, Prescription Opioid Use form. - Follow up: Private Physician; When: Tomorrow. - Problem is new. - Symptoms are resolved. NIH Stroke Scale - NIH Stroke Score Date: 08/24/2018 Time: 16:51 Total Score = 0 1a. Level of Consciousness (LOC) - 0(Alert) 1b. Level of Consciousness (LOC) (Year \T\ Age) - 0(Both) 1c. LOC Commands (Open \T\ Closes Eyes/Teletray Operator) - 0(Both) 2. Best Gaze (Lateral Gaze Paresis) - 0(Normal) 3. Visual Field Loss - 0(No visual loss) 4. Facial Palsy - 0(Normal) 5a. Left Arm: Motor (10-second hold) - 0(No drift) 5b. Right Arm: Motor (10-second hold) - 0(No drift) 6a. Left Leg: Motor (5-second hold - always test supine) - 0(No drift) 6b. Right Leg: Motor (5-second hold - always test supine) - 0(No drift) 7. Limb Ataxia (finger/nose \T\ heel/whitley - test with eyes open) - 0(Absent) 8. Sensory Loss (pinprick arms/legs/face) - 0(Normal) 9. Best Language: Aphasia (description/naming/reading) - 0(No aphasia) 10. Dysarthria (speech clarity - read or repeat words) - 0(Normal) 11. Extinction and Inattention (visual/tactile/auditory/spatial/personal) - 0(No abnormality) Initials: gs Signatures: Dispatcher [employer] EDShantelle Martinez RN RN aj1 Mason Velasquez MD MD gs Corrections: (The following items were deleted from the chart) 17:29 16:47 08/24/2018 16:47 Discharged to Home. Impression: Syncope and collapse. aj1 Condition is Stable. Forms are Medication Reconciliation Form, Thank You Letter, Antibiotic Education, Prescription Opioid Use. Follow up: Private Physician; When: Tomorrow. Problem is new. Symptoms are resolved. gs
--- NOTE | 2018-08-24 16:48 | ER ---
Nurse's Notes [facility] Name: Jason Johnson Age: 68 yrs Sex: Male : 1950 Arrival Date: 08/24/2018 Time: 13:34 Bed 6 Private MD: Diagnosis: Syncope and collapse Presentation: 08/24 13:34 Presenting complaint: EMS states: Patient was eating lunch at [facility] when the aj1 target protection specialist noticed that he "looked off", she asked if he was okay, and the patient said that he was, but then when he stood up he started swaying. He then fell, hitting the upper half of his body on the bar before falling backwards. Patient states that he does not think that he hit his head. Patient vomited once as he was falling and once more when he hit the ground. Patient states that before he stood he started to feel dizzy and nauseated and was trying to make his way to the bathroom. Transition of care: patient was not received from another setting of care. Onset of symptoms was August 24, 2018. Risk Assessment: Do you want to hurt yourself or someone else? Patient reports no desire to harm self or others. Initial Sepsis Screen: Does the patient meet any 2 criteria? No. Patient's initial sepsis screen is negative. Does the patient have a suspected source of infection? No. Patient's initial sepsis screen is negative. Care prior to arrival: None. 13:34 Method Of Arrival: Ambulatory aj1 13:34 Acuity: NINA 2 aj1 Triage Assessment: 13:41 General: Appears in no apparent distress. uncomfortable, Behavior is calm, cooperative, aj1 appropriate for age. Pain: Complains of pain in left trapezius and right trapezius. Neuro: Reports dizziness. Historical: - Allergies: 13:41 No Known Allergies; aj1 - Home Meds: 13:41 aspirin 81 mg Oral TbEC 1 tab once daily [Active]; multivitamin Oral tab daily aj1 [Active]; Probiotic Oral [Active]; - PMHx: 13:41 constipation; CVA; Hypertension; aj1 - Immunization history:: Flu vaccine is up to date. - Social history:: Smoking status: Patient/guardian denies using tobacco. - Ebola Screening: : Patient denies travel to an Ebola-affected area in the 21 days before illness onset. Screenin:44 Abuse screen: Denies threats or abuse. Denies injuries from another. Nutritional aj1 screening: No deficits noted. Tuberculosis screening: No symptoms or risk factors identified. 17:26 Fall Risk None identified. aj1 Assessment: 13:44 General: Appears in no apparent distress. uncomfortable, Behavior is calm, cooperative, aj1 appropriate for age. Pain: Complains of pain in right trapezius and left trapezius Pain does not radiate. Pain currently is 4 out of 10 on a pain scale. Neuro: Level of Consciousness is awake, alert, obeys commands, Oriented to person, place, time, situation, Moves all extremities. Speech is normal, Facial symmetry appears normal, Reports dizziness, weakness. Cardiovascular: Denies chest pain, shortness of breath, Heart tones S1 S2 present Patient's skin is warm and dry. Rhythm is sinus rhythm. Respiratory: Airway is patent Respiratory effort is even, unlabored, Respiratory pattern is regular, symmetrical. GI: Abdomen is flat, non-distended, Reports vomiting. : No signs and/or symptoms were reported regarding the genitourinary system. EENT: No signs and/or symptoms were reported regarding the EENT system. Derm: No signs and/or symptoms reported regarding the dermatologic system. Skin is pink, warm \\T\\ dry. normal. Musculoskeletal: No signs and/or symptoms reported regarding the musculoskeletal system. Circulation, motion, and sensation intact. 14:43 Reassessment: Patient appears in no apparent distress at this time. No changes from aj1 previously documented assessment. Patient and/or family updated on plan of care and expected duration. Pain level reassessed. Patient is alert, oriented x 3, equal unlabored respirations, skin warm/dry/pink. 15:45 Reassessment: Patient appears in no apparent distress at this time. No changes from aj1 previously documented assessment. Patient and/or family updated on plan of care and expected duration. Pain level reassessed. Patient is alert, oriented x 3, equal unlabored respirations, skin warm/dry/pink. 16:45 Reassessment: Patient appears in no apparent distress at this time. No changes from aj1 previously documented assessment. Patient and/or family updated on plan of care and expected duration. Pain level reassessed. Patient is alert, oriented x 3, equal unlabored respirations, skin warm/dry/pink. 17:26 Reassessment: Patient appears in no apparent distress at this time. No changes from aj1 previously documented assessment. Patient and/or family updated on plan of care and expected duration. Pain level reassessed. Patient is alert, oriented x 3, equal unlabored respirations, skin warm/dry/pink. Vital Signs: 13:41 BP 157 / 101; Pulse 60; Resp 20; Temp 98.5; Pulse Ox 98% on R/A; Weight 86.18 kg (R); aj1 Height 6 ft. 2 in. (187.96 cm) (R); Pain 4/10; 14:43 BP 163 / 101; Pulse 62; Resp 18; Pulse Ox 99% on R/A; aj1 15:56 BP 155 / 100; Pulse 72; Resp 18; Pulse Ox 98% on R/A; la1 16:45 BP 162 / 101; Pulse 65; Resp 18; Pulse Ox 98% ; aj1 17:29 BP 160 / 100; Pulse 69; Resp 20; Temp 97; aj1 13:41 Body Mass Index 24.39 (86.18 kg, 187.96 cm) aj1 NIH Stroke Scale Scores: 16:51 NIHSS Score: 0 ED Course: 13:34 Patient arrived in ED. aj1 13:36 Mason Velasquez MD is Attending Physician. gs 13:38 EKG done, by ED staff, reviewed by Mason Velasquez MD. 3 13:40 Triage completed. aj1 13:41 Arm band placed on. aj1 13:44 No provider procedures requiring assistance completed. Maintain EMS IV. Dressing aj1 intact. Site clean \\T\\ dry. Gauge \\T\\ site: 18 g left AC. IV is patent, with good blood return. 13:44 Patient has correct armband on for positive identification. Bed in low position. Call aj1 light in reach. Side rails up X 1. gambling monitor on. Pulse ox on. NIBP on. 13:48 Shantelle Astorga, RN is Primary Nurse. aj1 14:14 CT completed. Patient moved to CT via stretcher. Patient moved back from CT. bq 17:26 IV discontinued, intact, bleeding controlled, No redness/swelling at site. Pressure aj1 dressing applied. Administered Medications: No medications were administered Outcome: 16:47 Discharge ordered by . gs 17:27 Discharged to home ambulatory. aj1 17:27 Condition: good 17:27 Discharge instructions given to patient, Instructed on discharge instructions, follow up and referral plans. Demonstrated understanding of instructions, follow-up care. 17:29 Patient left the ED. aj1 NIH Stroke Scale - NIH Stroke Score Date: 08/24/2018 Time: 16:51 Total Score = 0 1a. Level of Consciousness (LOC) - 0(Alert) 1b. Level of Consciousness (LOC) (Year \\T\\ Age) - 0(Both) 1c. LOC Commands (Open \\T\\ Closes Eyes/Switchgear Repairer) - 0(Both) 2. Best Gaze (Lateral Gaze Paresis) - 0(Normal) 3. Visual Field Loss - 0(No visual loss) 4. Facial Palsy - 0(Normal) 5a. Left Arm: Motor (10-second hold) - 0(No drift) 5b. Right Arm: Motor (10-second hold) - 0(No drift) 6a. Left Leg: Motor (5-second hold - always test supine) - 0(No drift) 6b. Right Leg: Motor (5-second hold - always test supine) - 0(No drift) 7. Limb Ataxia (finger/nose \\T\\ heel/whitley - test with eyes open) - 0(Absent) 8. Sensory Loss (pinprick arms/legs/face) - 0(Normal) 9. Best Language: Aphasia (description/naming/reading) - 0(No aphasia) 10. Dysarthria (speech clarity - read or repeat words) - 0(Normal) 11. Extinction and Inattention (visual/tactile/auditory/spatial/personal) - 0(No abnormality) Initials: Signatures: Shantelle Astorga, RN RN roger1 Rosita Hayden Lee, RN RN la1 Stephanie Meyers 3 Mason Velasquez MD MD
[2018-08-24 17:38] VITALS: O2SAT 98
[2018-08-24 17:41] VITALS: BP 160/100; TEMP 97
--- NOTE | 2018-08-25 07:05 | EKG ---
Test Date: 2018-08-24 Test Time: 13:37:11 Calender Inspector: FABIÁN MEASUREMENT RESULTS: Intervals: Rate: 56 IN: 224 QRSD: 88 QT: 446 QTc: 430 [place]: P: 53 IN: 224 QRS: -26 T: -32 INTERPRETIVE STATEMENTS: Sinus bradycardia with 1st degree AV block Otherwise normal ECG Compared to ECG 06/13/2018 20:06:13 ST (T wave) deviation no longer present Electronically Signed On 08-25-18 07:04:19 MAIL LIST PROCESSOR by Cornelio Morgan
== END 2018-08-24 17:29 | disposition home or self-care (01) ==
LOC: ER 13:23
DX: R55 Syncope and collapse (principal); I10 Essential (primary) hypertension; Z79.82 Long term (current) use of aspirin; Z86.73 Personal history of transient ischemic attack (TIA), and cerebral infarction without residual deficits
CPT/HCPCS: 36415; 70450; 71045; 72125; 80048; 80076; 83735; 83880; 84484; 85025; 85610; 93005; 99284

== ENCOUNTER 2018-12-01 09:31 | Emergency (ER) | payer OTHER ==
[2018-12-01] MEDS ORDERED: NA CHLORIDE 0.9% 1,000 ML ONE (10:14)
[2018-12-01 10:29] LABS: Absolute Lymphocytes (CBC) 1.2 K/uL (0.7-4.9); Absolute Monocytes 0.8 K/uL (0.1-1.3); Absolute Neutrophil 10.7 K/uL (1.8-8.0); Basophils % 0.3 % (0-1.3); Eosinophils % 0.1 % (0-4.4); Hematocrit 40.9 % (39.6-49.0); Lymphocytes % 9.7 % (15.3-44.8); MPV 10.2 fL (7.6-11.3); Monocytes % 6.3 % (3.3-12.3); RBC Red Blood Cell Count 4.34 M/uL (4.33-5.43)
[2018-12-01 10:30] LABS: Protime INR 1.09
--- NOTE | 2018-12-01 10:40 | RAD REPORT ---
EXAM DESCRIPTION: RAD - Chest Single View - 12/01/2018 10:26 am CLINICAL HISTORY: CHEST PAIN Chest pain. COMPARISON: Chest Single View dated 08/24/2018; Chest Single View dated 06/13/2018; Abdomen 1 View (K UB) dated 01/23/2018; Chest Pa And Lat (2 Views) dated 11/06/2017 FINDINGS: Portable technique limits examination quality. The lungs are grossly clear. The heart is normal in size. Tortuous thoracic aorta. No displaced fract ures. IMPRESSION: No acute intrathoracic process suspected.
[2018-12-01 10:57] LABS: Albumin 3.5 g/dL (3.4-5.0); Bilirubin Direct 0.4 mg/dL (0-0.2); Bilirubin Total 1.3 mg/dL (0.2-1.0); Magnesium 2.3 mg/dL (1.8-2.4); Potassium 3.6 mmol/L (3.5-5.1); Protein, Total 7.8 g/dL (6.4-8.2)
--- NOTE | 2018-12-01 10:57 | ER ---
Nurse's Notes [facility] Name: Jason Johnson Age: 68 yrs Sex: Male : 1950 Arrival Date: 12/01/2018 Time: 09:37 Bed 17 Private MD: Diagnosis: Dizziness and giddiness;Non-ST elevation (NSTEMI) myocardial infarction;Unspecified kidney failure;Weakness;Syncope and collapse-near;Bradycardia, unspecified;Atrial fibrillation and flutter-slow SVR Presentation: 12/01 09:45 Presenting complaint: Patient states: has been experiencing weakness and dizziness pc1 since Saturday. Stated that he had fallen at approximately 01:00 this morning. Stated that his friends called EMS when they noticed the abrasions to the right side of his face. Transition of care: patient was not received from another setting of care. Onset of symptoms was November 28, 2018. Risk Assessment: Do you want to hurt yourself or someone else? Patient reports no desire to harm self or others. Initial Sepsis Screen: Does the patient meet any 2 criteria? No. Patient's initial sepsis screen is negative. Does the patient have a suspected source of infection? No. Patient's initial sepsis screen is negative. Care prior to arrival: Medication(s) given: Normal saline infusion, 1000 mL, IV initiated. 20 GA, in the left antecubital area, Glucose check: 140. 09:45 Method Of Arrival: EMS: [facility] pc1 09:45 Acuity: NINA 3 hj 11:05 Acuity: NINA 2 iw Triage Assessment: 09:50 General: Appears distressed, comfortable, well groomed, Behavior is calm, cooperative. pc1 Pain: Denies pain. EENT: No signs and/or symptoms were reported regarding the EENT system. Neuro: Level of Consciousness is awake, alert, obeys commands, Oriented to person, place, time, Scullion Chief are equal bilaterally Moves all extremities. Full function Reports dizziness, since Saturday. Cardiovascular: Capillary refill < 3 seconds Pulses are 2+ in right radial artery and left radial artery. Respiratory: Airway is patent Breath sounds are clear bilaterally. GI: No signs and/or symptoms were reported involving the gastrointestinal system. : No signs and/or symptoms were reported regarding the genitourinary system. Derm: Skin is intact, is healthy with good turgor, Skin is dry, Skin is pink, warm \\T\\ dry. Skin temperature is warm. Musculoskeletal: Circulation, motion, and sensation intact. Capillary refill < 3 seconds, Range of motion: intact in all extremities. Injury Description: Abrasion sustained to right lateral periorbital area. Historical: - Allergies: 09:45 No Known Drug Allergies; hj - Home Meds: 09:45 aspirin 81 mg Oral TbEC 1 tab once daily [Active]; multivitamin Oral tab daily hj [Active]; Probiotic Oral [Active]; - PMHx: 09:50 CVA; Hypertension; pc1 09:45 constipation; hj - PSHx: :45 Unable to obtain; hj - Immunization history:: Adult Immunizations unknown. - Social history:: Smoking status: Patient/guardian denies using tobacco, never smoked. - Ebola Screening: : Patient negative for fever greater than or equal to 101.5 degrees Fahrenheit, and additional compatible Ebola Virus Disease symptoms Patient denies exposure to infectious person Patient denies travel to an Ebola-affected area in the 21 days before illness onset No symptoms or risks identified at this time. - Family history:: not pertinent. Screenin:02 Abuse screen: Denies threats or abuse. Denies injuries from another. Nutritional pc1 screening: No deficits noted. Tuberculosis screening: No symptoms or risk factors identified. Fall Risk Fall in past 12 months (25 points). Secondary diagnosis (15 points) TIA, IV access (20 points). Gait- Weak (10 pts.). Total Aguirre Fall Scale indicates High Risk Score (45 or more points). Fall prevention measures have been instituted. Side Rails Up X 2 Frequent Obs/Assessments Occuring Family Present and informed to notify staff if the need to leave the bedside As available patient and family educated on Fall Prevention Program and Strategies. Assessment: 09:45 Reassessment: see triage for assessment;. hj 10:15 Reassessment: Patient and/or family updated on plan of care and expected duration. Pain hj level reassessed. Patient is alert, oriented x 3, equal unlabored respirations, skin warm/dry/pink. pt states" i still feel dizzy"; MD in room, aware of HR in the 40's;. 11:53 Reassessment: Patient and/or family updated on plan of care and expected duration. Pain hj level reassessed. Patient is alert, oriented x 3, equal unlabored respirations, skin warm/dry/pink. awaiting head CT results; meds pending per head CT result;. 12:32 Reassessment: reports given to Deja Martinez RN;. hj Vital Signs: 09:50 BP 127 / 77; Pulse 44; Resp 10; Temp 98.1; Pulse Ox 100% on R/A; Weight 86.18 kg; pc1 Height 5 ft. 2 in. (157.48 cm); Pain 0/10; 10:29 BP 127 / 77; Pulse 45; Resp 18; Pulse Ox 99% on R/A; hj 11:00 BP 122 / 81; Pulse 43; Resp 18; Pulse Ox 100% on R/A; hj 11:30 BP 121 / 78; Pulse 42; Resp 18; Pulse Ox 100% on R/A; hj 12:20 BP 128 / 78; Pulse 42; Resp 18; Pulse Ox 99% on R/A; hj 09:50 Body Mass Index 34.75 (86.18 kg, 157.48 cm) pc1 ED Course: 09:37 Patient arrived in ED. hj 09:39 Felipe Gonzalez MD is Attending Physician. denys 09:45 Arm band placed on. hj 09:45 Maintain EMS IV. Dressing intact. Good blood return noted. Site clean \\T\\ dry. Gauge \\T\\ hj site: 20g L AC. 09:48 Carlos Ngo, JAVI is Primary Nurse. hj 10:02 Patient has correct armband on for positive identification. Bed in low position. Call pc1 light in reach. Side rails up X2. Adult w/ patient. Pillow given. 10:09 EKG done, by certified cytotechnologist. reviewed by Felipe Gonzalez MD. tc 10:14 Triage completed. hj 10:25 X-ray completed. Portable x-ray completed in exam room. Patient tolerated procedure mh1 well. 10:26 XRAY Chest (1 view) In Process Unspecified. EDMS 10:56 Raman Hope MD is Hospitalizing Provider. denys 11:03 Notified ED physician of a critical lab result(s). Trop=8.06. iw 11:32 CT Head Brain wo Cont In Process Unspecified. EDMS 11:41 CT completed. Patient tolerated procedure well. Patient moved to CT via stretcher. vr Patient moved back from CT. 11:50 Inserted saline lock: 22 gauge in right antecubital area, using aseptic technique. hj 12:31 No provider procedures requiring assistance completed. Patient transferred, IV remains hj in place. intact. Administered Medications: 10:12 Drug: NS 0.9% 1000 ml Route: IV; Rate: 75 ml/hr; Site: left antecubital; hj 11:55 Drug: Aspirin Chewable Tablet 162 mg Route: PO; hj 12:15 Follow up: Response: No adverse reaction hj 11:55 Drug: PlaVIX 300 mg Route: PO; hj 12:15 Follow up: Response: No adverse reaction hj 11:55 Drug: Heparin ([place]-Bolus No thrombolytic) - HEParin 60 units/kg {Co-Signature: bp (Dwayne Garcia RN).} Route: IVP; Site: right antecubital; 12:15 Follow up: Response: No adverse reaction hj 11:55 Drug: Heparin ([place] Drip) 12 units/kg/hr - (HEParin 72352 units, D5W 500 ml) hj {Co-Signature: bp (Dwayne Garcia RN).} Route: IV; Rate: calculated rate; Site: right antecubital; 12:14 Follow up: IV Status: Completed infusion hj 11:55 Drug: Pepcid 20 mg Route: IVP; Site: right antecubital; hj 12:14 Follow up: Response: No adverse reaction Outcome: 10:57 Decision to Hospitalize by Provider. denys 11:53 ER care complete, transfer ordered by . [facility] 12:31 Attestation : i agree with notes of SN Haseeb. 12:31 Transferred by ground EMS to [facility], Transfer form completed. X-rays sent w/ patient. 12:31 Condition: stable 12:31 Instructed on the need for transfer, Demonstrated understanding of instructions. 13:35 Patient left the ED. Signatures: Dispatcher [employer] Felipe Walker MD MD cha Harvey, Martha 1 Sis Elizalde, RN Rose Mcclendon Tiffany, crank hand EKG Ttc Carlos Ngo RN RN hj Cantu, Patrick pc1 Brian Peltier RN bp
--- NOTE | 2018-12-01 10:58 | EDPHYS ---
Physician Documentation [facility] Name: Jason Johnson Age: 68 yrs Sex: Male : 1950 Arrival Date: 12/01/2018 Time: 09:37 Bed 17 Private MD: ED Physician Felipe Gonzalez HPI: 12/01 10:29 This 68 yrs old Male presents to ER via EMS with complaints of weak and dizzy.denys 10:29 The patient presents with a history of irregular heart beat. Context: The symptoms denys occur at rest. Onset: The symptoms/episode began/occurred 2 day(s) ago. Modifying factors: The symptoms are aggravated by. The patient presents with dizziness. Onset: The symptoms/episode began/occurred today. Modifying factors: The symptoms are alleviated by nothing, the symptoms are aggravated by standing up. Historical: - Allergies: 09:45 No Known Drug Allergies; hj - Home Meds: 09:45 aspirin 81 mg Oral TbEC 1 tab once daily [Active]; multivitamin Oral tab daily hj [Active]; Probiotic Oral [Active]; - PMHx: 09:50 CVA; Hypertension; pc1 09:45 constipation; hj - PSHx: 09:45 Unable to obtain; hj - Immunization history:: Adult Immunizations unknown. - Social history:: Smoking status: Patient/guardian denies using tobacco, never smoked. - Ebola Screening: : Patient negative for fever greater than or equal to 101.5 degrees Fahrenheit, and additional compatible Ebola Virus Disease symptoms Patient denies exposure to infectious person Patient denies travel to an Ebola-affected area in the 21 days before illness onset No symptoms or risks identified at this time. - Family history:: not pertinent. ROS: 10:29 Constitutional: Negative for fever, chills, and weight loss, Eyes: Negative for injury, denys pain, redness, and discharge, ENT: Negative for injury, pain, and discharge, Neck: Negative for injury, pain, and swelling, Cardiovascular: Negative for chest pain, palpitations, and edema, Respiratory: Negative for shortness of breath, cough, wheezing, and pleuritic chest pain, Abdomen/GI: Negative for abdominal pain, nausea, vomiting, diarrhea, and constipation, Back: Negative for injury and pain, : Negative for injury, bleeding, discharge, and swelling, MS/Extremity: Negative for injury and deformity, Skin: Negative for injury, rash, and discoloration, Psych: Negative for depression, anxiety, suicide ideation, homicidal ideation, and hallucinations, Allergy/Immunology: Negative for hives, rash, and allergies, Endocrine: Negative for neck swelling, polydipsia, polyuria, polyphagia, and marked weight changes, Hematologic/Lymphatic: Negative for swollen nodes, abnormal bleeding, and unusual bruising. 10:29 Neuro: Positive for dizziness, weakness. Exam: 10:29 Constitutional: This is a well developed, well nourished patient who is awake, alert, denys and in no acute distress. Head/Face: Normocephalic, atraumatic. Eyes: Pupils equal round and reactive to light, extra-ocular motions intact. Lids and lashes normal. Conjunctiva and sclera are non-icteric and not injected. Cornea within normal limits. Periorbital areas with no swelling, redness, or edema. ENT: Nares patent. No nasal discharge, no septal abnormalities noted. Tympanic membranes are normal and external auditory canals are clear. Oropharynx with no redness, swelling, or masses, exudates, or evidence of obstruction, uvula midline. Mucous membranes moist. Neck: Trachea midline, no thyromegaly or masses palpated, and no cervical lymphadenopathy. Supple, full range of motion without nuchal rigidity, or vertebral point tenderness. No Meningismus. Chest/axilla: Normal chest wall appearance and motion. Nontender with no deformity. No lesions are appreciated. Respiratory: Lungs have equal breath sounds bilaterally, clear to auscultation and percussion. No rales, rhonchi or wheezes noted. No increased work of breathing, no retractions or nasal flaring. Abdomen/GI: Soft, non-tender, with normal bowel sounds. No distension or tympany. No guarding or rebound. No evidence of tenderness throughout. Back: No spinal tenderness. No costovertebral tenderness. Full range of motion. Male : Normal genitalia with no discharge or lesions. Skin: Warm, dry with normal turgor. Normal color with no rashes, no lesions, and no evidence of cellulitis. MS/ Extremity: Pulses equal, no cyanosis. Neurovascular intact. Full, normal range of motion. Neuro: Awake and alert, GCS 15, oriented to person, place, time, and situation. Cranial nerves II-XII grossly intact. Motor strength 5/5 in all extremities. Sensory grossly intact. Cerebellar exam normal. Normal gait. Psych: Awake, alert, with orientation to person, place and time. Behavior, mood, and affect are within normal limits. 10:29 Cardiovascular: Rate: bradycardic, Rhythm: irregularly irregular, Pulses: Pulses are 4+ in bilateral radial, brachial, femoral, popliteal, posterior tibial and and dorsalis pedis arteries.. Heart sounds: normal, Edema: is not appreciated, JVD: is not appreciated. Vital Signs: 09:50 BP 127 / 77; Pulse 44; Resp 10; Temp 98.1; Pulse Ox 100% on R/A; Weight 86.18 kg; pc1 Height 5 ft. 2 in. (157.48 cm); Pain 0/10; 10:29 BP 127 / 77; Pulse 45; Resp 18; Pulse Ox 99% on R/A; hj 11:00 BP 122 / 81; Pulse 43; Resp 18; Pulse Ox 100% on R/A; hj 11:30 BP 121 / 78; Pulse 42; Resp 18; Pulse Ox 100% on R/A; hj 12:20 BP 128 / 78; Pulse 42; Resp 18; Pulse Ox 99% on R/A; hj 09:50 Body Mass Index 34.75 (86.18 kg, 157.48 cm) pc1 MDM: 09:39 Patient medically screened. [facility] 10:32 Data reviewed: vital signs, nurses notes, lab test result(s), EKG, radiologic studies, denys plain films. 12/01 09:48 Order name: Basic Metabolic Panel; Complete Time: 11:03 [facility] 12/01 09:48 Order name: CBC with Diff; Complete Time: 10:34 [facility] 12/01 09:48 Order name: LFT's; Complete Time: 11:03 [facility] 12/01 09:48 Order name: Magnesium; Complete Time: 11:03 [facility] 12/01 09:48 Order name: NT PRO-BNP; Complete Time: 11:03 [facility] 12/01 09:48 Order name: PT-INR; Complete Time: 10:54 [facility] 12/01 09:48 Order name: Troponin (emerg Dept Use Only); Complete Time: 11:03 [facility] 12/01 09:48 Order name: XRAY Chest (1 view); Complete Time: 10:54 [facility] 12/01 10:34 Order name: Echo w/ Doppler 12/01 10:42 Order name: TSH 12/01 11:07 Order name: CT Head Brain wo Cont; Complete Time: 11:49 [facility] 12/01 12:01 Order name: CK 12/01 12:01 Order name: Ckmb 12/01 09:48 Order name: EKG; Complete Time: 09:49 12/01 09:48 Order name: Cardiac monitoring; Complete Time: 09:49 [facility] 12/01 09:48 Order name: EKG - Nurse/Tech; Complete Time: 09:49 12/01 09:48 Order name: IV Saline Lock; Complete Time: 09:49 [facility] 12/01 09:48 Order name: Labs collected and sent; Complete Time: 10:13 [facility] 12/01 09:48 Order name: O2 Per Protocol; Complete Time: 09:49 12/01 09:48 Order name: O2 Sat Monitoring; Complete Time: 09:50 [facility] 12/01 10:27 Order name: EKG - Nurse/Tech; Complete Time: 11:18 denys Administered Medications: 10:12 Drug: NS 0.9% 1000 ml Route: IV; Rate: 75 ml/hr; Site: left antecubital; hj 11:55 Drug: Aspirin Chewable Tablet 162 mg Route: PO; hj 12:15 Follow up: Response: No adverse reaction hj 11:55 Drug: PlaVIX 300 mg Route: PO; hj 12:15 Follow up: Response: No adverse reaction hj 11:55 Drug: Heparin (OR-Bolus No thrombolytic) - HEParin 60 units/kg {Co-Signature: bp (Dwayne Garcia RN).} Route: IVP; Site: right antecubital; 12:15 Follow up: Response: No adverse reaction hj 11:55 Drug: Heparin (OR Drip) 12 units/kg/hr - (HEParin 26066 units, D5W 500 ml) hj {Co-Signature: bp (Dwayne Garcia RN).} Route: IV; Rate: calculated rate; Site: right antecubital; 12:14 Follow up: IV Status: Completed infusion hj 11:55 Drug: Pepcid 20 mg Route: IVP; Site: right antecubital; hj 12:14 Follow up: Response: No adverse reaction Disposition: 12/01/18 11:53 Transfer ordered to [facility]. Diagnosis are Dizziness and giddiness, Non-ST elevation (NSTEMI) myocardial infarction, Unspecified kidney failure, Weakness, Syncope and collapse - near, Bradycardia, unspecified, Atrial fibrillation and flutter - slow SVR. - Reason for transfer: Higher level of care. - Accepting physician is to [facility], [facility]. - Condition is Stable. - Problem is new. - Symptoms have improved. Signatures: Dispatcher [employer] EDMS Felipe Gonzaelz MD MD cha Joaquin, Henry RN RN Anderson Duff RN bp Corrections: (The following items were deleted from the chart) 11:03 10:57 Hospitalization Ordered by Raman Hope MD for Inpatient Admission. Preliminary denys diagnosis is Dizziness and giddiness; Weakness; Bradycardia, unspecified; Atrial fibrillation and flutter; Syncope and collapse - near; Superficial injury of head. Bed requested for Telemetry/MedSurg (Inpatient). Status is Inpatient Admission. Condition is Fair. Problem is new. Symptoms have improved. UTI on Admission? No. denys 11:07 11:03 12/01/2018 10:57 Hospitalization Ordered by Raman Hope MD for Inpatient denys Admission. Preliminary diagnosis is Dizziness and giddiness; Weakness; Bradycardia, unspecified; Atrial fibrillation and flutter; Syncope and collapse - near; Superficial injury of head; Non-ST elevation (NSTEMI) myocardial infarction. Bed requested for Intensive Care Unit. Status is Inpatient Admission. Condition is Fair. Problem is new. Symptoms have improved. UTI on Admission? No. denys 11:50 11:07 12/01/2018 10:57 Hospitalization Ordered by Raman Hope MD for Inpatient denys Admission. Preliminary diagnosis is Dizziness and giddiness; Weakness; Bradycardia, unspecified; Atrial fibrillation and flutter; Syncope and collapse - near; Superficial injury of head; Non-ST elevation (NSTEMI) myocardial infarction; Unspecified kidney failure. Bed requested for Intensive Care Unit. Status is Inpatient Admission. Condition is Fair. Problem is new. Symptoms have improved. UTI on Admission? No. denys 13:35 11:53 12/01/2018 11:53 Transfer ordered to [facility]. Diagnosis is hj Dizziness and giddiness; Non-ST elevation (NSTEMI) myocardial infarction; Unspecified kidney failure; Weakness; Syncope and collapse - near; Bradycardia, unspecified; Atrial fibrillation and flutter - slow SVR. Reason for transfer: Higher level of care. Accepting physician is to [facility]. Condition is Stable. Problem is new. Symptoms have improved. denys
[2018-12-01 11:01] LABS: Troponin (Emerg Dept Use Only) 8.06 ng/mL (0.0-0.045)
--- NOTE | 2018-12-01 11:39 | RAD REPORT ---
EXAM DESCRIPTION: CT - Head Brain Wo Cont - 12/01/2018 11:31 am CLINICAL HISTORY: Headache COMPARISON: June 2017 TECHNIQUE: Axial 5 mm thick images of the head were obtained without IV contrast. All CT scans are performed using dose optimization technique as appropriate and may include automated exposure control or mA/KV adjustment according to patient size. FINDINGS: No intracranial hemorrhage, mass, edema or shift of mid-line structures. No acute infarcti on changes seen. Moderate atrophy and chronic ischemic changes are present similar to comparison. Adrien tricles are in proportion to volume loss. Mastoid air cells and visualized portions of the paranasal sinuses are clear. No acute bony findings. IMPRESSION: Atrophy and chronic ischemic changes are present moderate in degree and similar to 2017 examination. No acute intracranial finding.
[2018-12-01] MEDS ORDERED: HEPARIN 5000 UNIT/ML 1 ML VIAL ONE (12:12)
[2018-12-01] MEDS ORDERED: CLOPIDOGREL 75 MG TABLET ONE (12:12)
[2018-12-01] MEDS ORDERED: ASPIRIN 81 MG CHEWABLE TABLET ONE (12:12)
[2018-12-01] MEDS ORDERED: FAMOTIDINE 20 MG/2 ML VIAL IV ONE (12:13)
[2018-12-01] MEDS ORDERED: HEPARIN/D5W 25,000 UNIT/500 ML BAG IV ONE (12:13)
[2018-12-01 12:34] LABS: CKMB Creatine Kinase MB 2.6 ng/mL (0.3-3.6)
--- NOTE | 2018-12-01 13:18 | ECHO ---
HEIGHT: ft in WEIGHT: lb oz DATE OF STUDY: 12/01/[address]: Felipe Gonzalez MD 2-DIMENSIONAL: YES M.MODE: YES DOPPLER: YES COLOR FLOW: YES TDS: YES PORTABLE: DEFINITY: BUBBLE STUDY: DIAGNOSIS: BRADYCARDIA CARDIAC HISTORY: CATHERIZATION: NO SURGERY: NO PROSTHETIC VALVE: NO PACEMAKER: NO MEASUREMENTS (cm) DIASTOLIC (NORMALS) SYSTOLIC (NORMALS) IVSd 1.2 (0.6-1.2) LA Diam 4.3 (1.9-4.0) LVEF 71% LVIDd 4.1 (3.5-5.7) LVIDs 2.4 (2.0-3.5) %FS 40% LVPWd 1.3 (0.6-1.2) Ao Diam 3.4 (2.0-3.7) 2 DIMENSIONAL ASSESSMENT: RIGHT ATRIUM: NORMAL LEFT ATRIUM: DILATED RIGHT VENTRICLE: NORMAL LEFT VENTRICLE: LEFT VENTRICULAR HYPERTROPHY TRICUSPID VALVE: NORMAL MITRAL VALVE: NORMAL PULMONIC VALVE: NORMAL AORTIC VALVE: NORMAL PERICARDIAL EFFUSION: NONE AORTIC ROOT: NORMAL LEFT VENTRICULAR WALL MOTION: NORMAL DOPPLER/COLOR FLOW: NORMAL COMMENTS: NORMAL LEFT VENTRICULAR EJECTION FRACTION. LEFT VENTRICULAR HYPERTROPHY. DILATED LEFT ATRIUM. NORMAL CARDIAC DOPPLER. TECHNOLOGIST: HOANG MCCANN
[2018-12-01 13:59] VITALS: TEMP 98.1
[2018-12-01 14:13] VITALS: BP 128/78; O2SAT 99
--- NOTE | 2018-12-01 17:28 | EKG ---
Test Date: 2018-12-01 Test Time: 13:30:37 Loan Collector: KATHERINE MEASUREMENT RESULTS: Intervals: Rate: 42 CO: QRSD: 110 QT: 502 QTc: 419 [place]: P: 52 CO: QRS: 42 T: -87 INTERPRETIVE STATEMENTS: Sinus rhythm with complete heart block and Junctional bradycardia Septal infarct, age undetermined ST & T wave abnormality, consider inferolateral ischemia Abnormal ECG Compared to ECG 12/01/2018 09:45:15 ST (T wave) deviation now present Possible ischemia now present Sinus bradycardia no longer present Junctional rhythm no longer present Myocardial infarct finding still present Electronically Signed On 12-01-18 17:26:29 CDT by Cornelio Morgan
--- NOTE | 2018-12-01 17:29 | EKG ---
Test Date: 2018-12-01 Test Time: 09:45:15 Mechanic Field Service: ROSANNA/ MEASUREMENT RESULTS: Intervals: Rate: 45 [place]: QRSD: 108 QT: 506 QTc: 437 [place]: P: 65 [place]: QRS: 55 T: 268 INTERPRETIVE STATEMENTS: Sinus bradycardia with complete heart block and Junctional rhythm Anteroseptal infarct, age undetermined Abnormal ECG Compared to ECG 08/24/2018 13:37:11 Junctional rhythm now present AV block, complete (third-degree) now present Myocardial infarct finding now present First degree AV block no longer present Electronically Signed On 12-01-18 17:27:33 CDT by Cornelio Morgan
== END 2018-12-01 13:35 | disposition short-term general hospital (02) ==
LOC: ER 09:31
DX: I21.3 ST elevation (STEMI) myocardial infarction of unspecified site (principal); N19 Unspecified kidney failure; I48.91 Unspecified atrial fibrillation; I48.92 Unspecified atrial flutter; R00.1 Bradycardia, unspecified; R53.1 Weakness; R55 Syncope and collapse; I10 Essential (primary) hypertension; Z79.82 Long term (current) use of aspirin; Z86.73 Personal history of transient ischemic attack (TIA), and cerebral infarction without residual deficits
CPT/HCPCS: 96365; 93005 ×2; 93306; 85025; 80048; 36415; 83735; 82550; 85610; 80076; 84443; 84484; 82553; 83880; 70450; 71045; 96375; 99285; J1644; J7030

== ENCOUNTER 2018-12-11 12:59 | Inpatient (IN) | payer OTHER ==
--- NOTE | 2018-12-12 11:45 | R.PREADM ---
SCREENING DATE AND TIME 12/11/2018 13:04 (CDT) ANTICIPATED REHAB ADMISSION DATE 12/13/2018 REFERRING FACILITY [facility] REFERRAL DATE AND TIME 12/11/2018 13:04 (CDT) ACUTE ADMIT DATE 12/01/2018 Previous Rehabilitation(s): No. REFERRING PHYSICIAN Josee Little REHAB FACILITY [facility] CLINICAL LIAISON Parth Swenson PHYSICIAN REVIEWER Dr. New Blunt M.D. MR# [id number] NAME TYLOR JOHNSON ADDRESS [address] PHONE [facility] [id number] DATE OF 1950 AGE 68 SSN# [id number] GENDER male MARITAL STATUS RACE white ADMIT FROM 02 - [facility] PRE-HOSPITAL LIVING SETTING 01 - Home (private home/apt. board/care, assisted living, residential, transitional living) HOME TYPE AND DETAILS Type of home: single family house # of steps to enter the residence: 0 # of steps within the residence: 0 # of levels in the residence: 1 PRE-HOSPITAL LIVING WITH Family/Relatives FAMILY SUPPORT Yes PRIMARY FAMILY CONTACT NAME Sam Johnson PRIMARY FAMILY CONTACT PHONE PHONE PRIMARY FAMILY CONTACT ON ADM.? no IS PRIMARY FAMILY CONTACT AUTH. REP.? no 1ST EMERGENCY CONTACT Sam Johnson 1ST CONTACT PHONE PHONE 1ST CONTACT ON ADM. no IS 1ST CONTACT AUTH. REP.? no PHONE 2ND CONTACT ON ADM.? no PATIENT EMPLOYMENT STATUS Retired (for age) PATIENT EMPLOYER No Employer PAYOR INFORMATION: 1ST PAYOR NAME Medicare 1ST PAYOR PHONE 1ST PAYOR INJURY/ILLNESS DUE TO ACCIDENT? No ANOTHER GREEN PARTY RESPONSIBLE? No PRIMARY REHAB/ACUTE DIAGNOSIS: CABG x4 REHAB IMPAIRMENT CATEGORY (LUCIE): 14 Cardiac does NOT meet 60% rule PRIMARY DIAGNOSIS-RELATED SURGERIES: CABG x 4 by Joanna Carvajal COMORBID REHAB/ACUTE DIAGNOSES: - N/A CHRONIC KIDNEY DISEASE hypertension constipation INTERVENTIONS: - Hypertension Fluid management Medications VS RISK FOR COMPLICATIONS: - Hypertension CVA Hypotension NM TIA SUMMARY OF ACUTE HOSPITALIZATION: Pt. is a 68 yo Right-handed white male. On 12/01/2018 he was admitted to [facility] with diagnosis CABG x4. His impairment category is Cardiac 09 - Cardiac Disorders (09). Pre-morbidly, Pt. was independent/mod-I in Self-Care, Sphincter Control, Transfers Control, Communica tion, Social Cognition, and Locomotion; and he had good Sphincter Control. Currently, he has deficits of Transfers Control, Communication, Social Cognition, Endurance, Balance, Safety Awareness, Self-Care, and Locomotion. Pt. is now referred to [facility] for acute in-patient rehabilitation in order to maximize patient's functional independence in activities of daily living, strength, ROM, and mobi lity. Patient has realistic goal of being discharged at assistance level 6-Deuce to reside at Home with Fam reynaldo/Relatives. PAST MEDICAL HISTORY CHRONIC KIDNEY DISEASE hypertension CVA MEDICATION ALLERGIES: No Known Drug Allergies (NKDA) ENVIRONMENTAL ALLERGIES: - Substance Allergies None Known - Other Allergies None Known CODE STATUS: Full code WEIGHT/HEIGHT/BMI: WEIGHT 183 lbs HEIGHT 6' 2" BMI 23.5 DIET: - Diet Type Regular - Diet - Solid Texture Regular - Diet - Liquid Texture Regular - Tube Feed N/A SKIN DIAGRAM: Incision on Chest; extent - small; stage - NS(Not Stageable). Treatment - Per Physician's Orders. REVIEW OF SYSTEMS: - Gen Alert and awake Lying in bed No apparent distress Oriented to: person, time, and place - Vital Signs Vital signs stable, afebrile - CVS RRR VITAL SIGNS Temperature: 98.1 F SBP/DBP: 107/83 Pulse: 43 Resp: 14 Vital signs stable, afebrile CURRENT SPHINCTER CONTROL: Pre-hospital bladder status: continent # of bladder accidents in the last 7 days prior to screenin Pre-hospital bowel status: continent # of bowel accidents in the last 7 days prior to screenin Last Bowel Movement Date: 12/11/2018 DETAILED CURRENT FUNCTIONAL STATUS: - Bladder accident frequency: Ind - No accidents in the past 7 days - Bowel accident frequency: Ind - No accidents in the past 7 days - Walking score based on distance walked: 1(<=50ft) FUNCTIONAL STATUS: - Self-Care A. Eating Ind Ind B. Grooming Ind sup C. Bathing Ind modA D. Dressing - Upper Ind modA E. Dressing - Lower Ind modA F. Toileting Ind modA - Sphincter Control G: Bladder control Ind Ind H: Bowel control Ind Ind - Transfers Control I. Bed/Chair/Wheelchair Ind modA J. Toilet Ind modA K. Tub/Shower Ind modA - Locomotion L. Walk/Wheelchair (W) Ind maxA M. Stairs Ind ADNO - Communication N. Comprehension (B) Ind Kamilla O. Expression (B) Ind Kamilla - Social Cognition P. Social Interaction Ind Kamilla Q. Problem Solving Ind Kamilla R. Memory Ind Kamilla - Endurance Poor - Balance Poor - Safety Awareness Poor CURRENT FUNC. DEFICITS: Transfers Control, Communication, Social Cognition, Endurance, Balance, Safety Awareness, Self-Care, and Locomotion THERAPY NOTES FROM ACUTE CARE: Attached. SPECIAL NEEDS: - Safety Concerns Skin breakdown precautions needed due to skin breakdown risk PATIENT NEEDS ACTIVE AND ONGOING THERAPEUTIC INTERVENTION OF MULTIPLE THERAPY DISCIPLINES, INCLUDING: - Occupational Therapy Evaluate and Treat. - Physical Therapy Evaluate and Treat. PATIENT NEEDS CLOSE MEDICAL SUPERVISION BY A REHABILITATION PHYSICIAN FOR: Bowel and Bladder Management Coordination of Treatment Team Medical and Co-Morbidity Management Wound Care PATIENT REQUIRES 24X7 REHAB NURSING FOR MEDICAL AND FUNCTIONAL MGT. OF THE FOLLOWING DEFICITS: ADL's Ambulation Bowel and Bladder Management Cognition Communication Disease Management Medication Management Patient/Family Education Providing Safe Environment Skin Integrity Transfers PATIENT REQUIRES INTENSIVE, COORDINATED INTERDISCIPLINARY APPROACH TO REHAB: Arranging Home Equipment/Services Discharge Planning Family Intervention/Training Woven Label Designer/Case Management PATIENT REHAB POTENTIAL: Expected level of measurable improvement will be of a practical value to patient's functional capacit y or adaptations to impairments Has a viable Discharge Plan Medically appropriate; condition is sufficiently stable to participate in intensive rehab program Patient is able and expected to receive 3 hours of individualized therapy daily on at least 5 of ever y 7 days Patient's prognosis for significant practical improvement within a reasonable period of time appears Good DISCHARGE PLAN: - Estimated Length of Stay (days) 10. - Consensus on plan Discharge plan has been discussed with primary caregiver. Patient/Family is in agreement with the jaison n. Primary caregiver is in agreement with the plan. - Patient/Family Goals Return home with assistance. - Planned Living Setting Upon Discharge Home, to live with Family/Relatives. RECOMMENDED CARE LEVEL: IRF RECOMMENDATION DETAILS: Recommended Admission to Comprehensive Rehabilitation Program to Increase Functional [place] SCREENER'S COMPLETENESS CONFIRMATION: - Screening Confirmation The patient data collection on this preadmission screening form is finished PHYSICIANS REVIEW AND ADMISSION DETERMINATION Admit - Based on my review of the Pre-Admission Screening results, in my medical judgment and experie nce, I concur with the findings and recommend admission to [facility], as this patient requires an IRF level of care. SIGNATURE PANEL: Clinical Liaison - [electronically] signed by Tiara Cantu on 12/11/2018 at 13:25 (CDT) Clinical Liaison - [electronically] signed by Parth Swenson on 12/11/2018 at 13:52 (CDT) Physician Reviewer - [electronically] signed by Dr. New Blunt M.D. on 12/12/2018 at 11:44 (CDT )
--- OUTSIDE RECORDS SUMMARY | 2018-12-12 18:13 | XMS REPORT | Clinical Summary ---
:1950 Author Organization [facility] Address [address] [place] [address] Care Team Providers Name Role Phone Jona Stephens MD Primary Care Provider Allergies No Known Allergies Medications Medication Sig Dispensed Refills Start Date End Date Status aspirin 81 MG EC Take 1 30 tablet 1 12/13/2018 12/13/2019 Active tablet tablet (81 mg total) by mouth daily. atorvastatin Take 1 30 tablet 1 12/12/2018 12/12/2019 Active (LIPITOR) 40 MG tablet (40 tablet mg total) by mouth nightly. metoprolol Take 1 30 tablet 1 12/13/2018 12/13/2019 Active (TOPROL-XL) 50 MG 24 tablet (50 hr tablet mg total) by mouth daily. ondansetron Take 1 20 tablet 0 12/12/2018 12/19/2018 Active (ZOFRAN-ODT) 4 MG tablet (4 mg disintegrating tablet total) by mouth every 6 (six) hours as needed for up to 7 days. pantoprazole Take 1 30 tablet 0 12/13/2018 Active (PROTONIX) 40 MG tablet (40 tablet mg total) by mouth daily. senna-docusate Take 1 30 tablet 0 12/12/2018 12/12/2019 Active (SENOKOT S) 8.6-50 mg tablet by per tablet mouth nightly. amLODIPine (NORVASC) Take 1 30 tablet 1 12/13/2018 12/13/2019 Active 10 MG tablet tablet (10 mg total) by mouth daily. amLODIPine (NORVASC) Take 5 mg by 0 12/12/2018 Discontinued 5 MG tablet mouth. carvedilol (COREG) TK 1 T PO 2 09/30/2018 12/02/2018 Discontinued 3.125 MG tablet BID irbesartan (AVAPRO) Take 300 mg 0 12/12/2018 Discontinued 300 MG tablet by mouth. irbesartan (AVAPRO) TK 1 T PO 1 09/26/2018 12/12/2018 Discontinued 300 MG tablet QAM LINZESS 290 mcg Cap TK 1 C PO QD 0 10/22/2018 12/12/2018 Discontinued omeprazole (PRILOSEC) Take 20 mg 0 12/12/2018 Discontinued 20 MG capsule by mouth. omeprazole (PRILOSEC) TK ONE C PO 1 09/26/2018 12/12/2018 Discontinued 20 MG capsule D Active Problems Problem Noted Date Complete heart block 12/02/2018 NSTEMI (non-ST elevated myocardial infarction) 12/01/2018 CKD (chronic kidney disease) stage 3, GFR 30-59 ml/min 09/09/2017 Overview: Baseline creatinine ~ 2-2.2 History of CVA (cerebrovascular accident) 09/09/2011 Encounters Date Type Specialty Care Team Description 12/07/2018 Orders Only General Internal Medicine 12/05/2018 Surgery Joanna Carvajal BYPASS,AORTO MD [place]inf[place] CORONARY BILLIE/SVG 12/05/2018 Anesthesia Event Navjot Olsen AA 12/05/2018 Orders Only General Internal Medicine 12/01/2018 Surgery Haim Farias & PCI MD [place] 12/01/2018 - Hospital Encounter Cardiology Vernell Padilla NSTEMI (non-ST elevated myocardial infarction) (HCC); 12/12/2018 MD Phu CKD (chronic kidney disease) stage 3, GFR 30-59 ml/min ([facility]); Joanna Carvajal History of CVA (cerebrovascular accident); MD Ninfa Complete heart block (HCC) Erik Zhao MD Asim, Amna, MD 12/01/2018 Travel after 12/11/2017 Social History Tobacco Use Types Packs/Day Years Used Date Never Smoker Smokeless Tobacco: Current User Chew Alcohol Use Drinks/Week oz/Week Comments No Alcohol Habits Answer Date Recorded How often do you have a drink containing alcohol? Never 12/01/2018 How many drinks containing alcohol do you have on a typical Not asked day when you are drinking? How often do you have six or more drinks on one occasion? Not asked Sex Assigned at Date Recorded Not on file Job Start Date Occupation Industry Not on file Not on file Not on file Travel History Travel Start Travel End No recent travel history available. Last Filed Vital Signs Vital Sign Reading Time Taken Blood Pressure 123/78 12/12/2018 3:20 PM CDT Pulse 83 12/12/2018 3:20 PM CDT Temperature 37.2 C (99 F) 12/12/2018 3:20 PM CDT Respiratory Rate 18 12/12/2018 3:20 PM CDT Oxygen Saturation 97% 12/12/2018 3:20 PM CDT Inhaled Oxygen Concentration 40% 12/06/2018 3:00 AM CDT Weight 71.9 kg (158 lb 9.6 oz) 12/12/2018 6:00 AM CDT Height 188 cm (6' 2") 12/07/2018 5:10 PM CDT Body Mass Index 20.36 12/12/2018 6:00 AM CDT Plan of Treatment Date Type Specialty Care Team Description 12/17/2018 Clinical Support Cardiology Joanna Carvajal MD [id number] [address] [phone] Implants Implanted Type Area Shove Up Device Shelf Model / Identifier Expiration Serial / Date Lot Sternal Zipfix Ndl Strl .[id number] - [id number] Cardiovascular N/A: SYNTHES:SYNTHES 06/08/2023 [id number] / Implanted: Qty: 1 on 12/05/2018 by Joanna Carvajal MD [facility] / [id number] Procedures Procedure Name Priority Date/Time Associated Comments Diagnosis URINALYSIS W/ REFLEX STAT 12/12/2018 12:44 Results for this URINE CULTURE PM CDT procedure are in the results section. CBC W/PLT COUNT & Routine 12/12/2018 4:31 Results for this AUTO DIFFERENTIAL AM CDT procedure are in the results section. PHOSPHORUS Routine 12/12/2018 4:31 Results for this AM CDT procedure are in the results section. CBC W/PLT COUNT & Routine 12/12/2018 4:31 Results for this AUTO DIFFERENTIAL AM CDT procedure are in the results section. US RENAL COMPLETE Routine 12/12/2018 12:30 Results for this AM CDT procedure are in the results section. CBC W/PLT COUNT & Routine 12/11/2018 3:56 Results for this AUTO DIFFERENTIAL AM CDT procedure are in the results section. BASIC METABOLIC PANEL Routine 12/11/2018 3:56 Results for this (7) AM CDT procedure are in the results section. MAGNESIUM Routine 12/11/2018 3:56 Results for this AM CDT procedure are in the results section. PHOSPHORUS Routine 12/11/2018 3:56 Results for this AM CDT procedure are in the results section. CBC W/PLT COUNT & Routine 12/11/2018 3:56 Results for this AUTO DIFFERENTIAL AM CDT procedure are in the results section. TRANSFUSION SERVICE 12/10/2018 6:00 REPORT - SCAN PM CDT VASCULAR DIAGRAM 12/10/2018 5:49 -SCAN PM CDT CBC W/PLT COUNT & Routine 12/10/2018 5:02 Results for this AUTO DIFFERENTIAL AM CDT procedure are in the results section. BASIC METABOLIC PANEL Routine 12/10/2018 5:02 Results for this (7) AM CDT procedure are in the results section. MAGNESIUM Routine 12/10/2018 5:02 Results for this AM CDT procedure are in the results section. PHOSPHORUS Routine 12/10/2018 5:02 Results for this AM CDT procedure are in the results section. CBC W/PLT COUNT & Routine 12/10/2018 5:02 Results for this AUTO DIFFERENTIAL AM CDT procedure are in the results section. PREPARE LEUKO-REDUCED Routine 12/09/2018 11:54 Results for this RBC PM CDT procedure are in the results section. TRANSFUSION SERVICE 12/09/2018 6:00 REPORT - SCAN PM CDT XR CHEST 1 VIEW Routine 12/09/2018 7:23 Results for this PORTABLE/BEDSIDE AM CDT procedure are in the results section. CBC W/PLT COUNT & Routine 12/09/2018 6:20 Results for this AUTO DIFFERENTIAL AM CDT procedure are in the results section. BASIC METABOLIC PANEL Routine 12/09/2018 6:20 Results for this (7) AM CDT procedure are in the results section. MAGNESIUM Routine 12/09/2018 6:20 Results for this AM CDT procedure are in the results section. PHOSPHORUS Routine 12/09/2018 6:20 Results for this AM CDT procedure are in the results section. CBC W/PLT COUNT & Routine 12/09/2018 6:20 Results for this AUTO DIFFERENTIAL AM CDT procedure are in the results section. PREPARE LEUKO-REDUCED AKUA 12/08/2018 11:54 Results for this RBC PM CDT procedure are in the results section. HEMOGLOBIN AND STAT 12/08/2018 7:02 Results for this HEMATOCRIT PM CDT procedure are in the results section. TRANSFUSION SERVICE 12/08/2018 6:00 REPORT - SCAN PM CDT TRANSFUSE Routine 12/08/2018 5:48 LEUKO-REDUCED RED PM CDT BLOOD CELLS TYPE AND SCREEN, Routine 12/08/2018 6:03 Results for this AUTOMATED AM CDT procedure are in the results section. XR CHEST 1 VIEW Routine 12/08/2018 5:06 Results for this PORTABLE/BEDSIDE AM CDT procedure are in the results section. CBC W/PLT COUNT & Routine 12/08/2018 4:00 Results for this AUTO DIFFERENTIAL AM CDT procedure are in the results section. PHOSPHORUS Routine 12/08/2018 4:00 Results for this AM CDT procedure are in the results section. CBC W/PLT COUNT & Routine 12/08/2018 4:00 Results for this AUTO DIFFERENTIAL AM CDT procedure are in the results section. BASIC METABOLIC PANEL Routine 12/08/2018 4:00 Results for this (7) AM CDT procedure are in the results section. TRANSFUSION SERVICE 12/07/2018 6:02 REPORT - SCAN PM CDT HEMOGLOBIN AND Routine 12/07/2018 11:57 Results for this HEMATOCRIT AM CDT procedure are in the results section. BASIC METABOLIC PANEL Routine 12/07/2018 11:57 Results for this (7) AM CDT procedure are in the results section. ECG 12-LEAD Routine 12/07/2018 7:39 AM CDT Procedure Note - Interface, External Ris In - 12/07/2018 9:24 AM CDT Ventricular Rate 89 BPM Atrial Rate 89 BPM P-R Interval 208 ms QRS Duration 86 ms Q-T Interval 364 ms QTC Calculation(Bazett) 442 ms P [place] 26 degrees R [place] -3 degrees T [place] 34 degrees Normal sinus rhythm Possible Inferior infarct , age undetermined Abnormal ECG No previous ECGs available ECG 12-LEAD Routine 12/07/2018 7:39 Results for this AM CDT procedure are in the results section. PHOSPHORUS Routine 12/07/2018 6:48 Results for this AM CDT procedure are in the results section. MAGNESIUM Routine 12/07/2018 6:48 Results for this AM CDT procedure are in the results section. BASIC METABOLIC PANEL (7) Routine 12/07/2018 6:48 Results for this AM CDT procedure are in the results section. CBC (HEMOGRAM ONLY) Routine 12/07/2018 4:21 Results for this AM CDT procedure are in the results section. TRANSFUSE LEUKO-REDUCED STAT 12/07/2018 3:57 RED BLOOD CELLS AM CDT XR CHEST 1 VIEW Routine 12/07/2018 3:27 Results for this PORTABLE/BEDSIDE AM CDT procedure are in the results section. PREPARE LEUKO-REDUCED STAT 12/06/2018 11:54 Results for this PLATELETS PM CDT procedure are in the results section. PREPARE LEUKO-REDUCED Routine 12/06/2018 11:54 Results for this PLATELETS PM CDT procedure are in the results section. HEMOGLOBIN AND HEMATOCRIT Routine 12/06/2018 10:50 Results for this PM CDT procedure are in the results section. BASIC METABOLIC PANEL (7) Routine 12/06/2018 10:50 Results for this PM CDT procedure are in the results section. TRANSFUSION SERVICE REPORT 12/06/2018 6:02 - SCAN PM CDT HEMOGLOBIN AND HEMATOCRIT Routine 12/06/2018 3:49 Results for this PM CDT procedure are in the results section. BASIC METABOLIC PANEL (7) Routine 12/06/2018 3:49 Results for this PM CDT procedure are in the results section. CBC W/PLT COUNT & AUTO STAT 12/06/2018 10:21 Results for this DIFFERENTIAL AM CDT procedure are in the results section. POTASSIUM Routine 12/06/2018 10:21 Results for this AM CDT procedure are in the results section. CBC W/PLT COUNT & AUTO STAT 12/06/2018 10:21 Results for this DIFFERENTIAL AM CDT procedure are in the results section. POTASSIUM-STAT LAB STAT 12/06/2018 6:26 Results for this AM CDT procedure are in the results section. BLOOD GAS, ARTERIAL STAT 12/06/2018 6:06 Results for this AM CDT procedure are in the results section. XR CHEST 1 VIEW Routine 12/06/2018 5:29 Results for this PORTABLE/BEDSIDE AM CDT procedure are in the results section. TRANSFUSE LEUKO-REDUCED STAT 12/06/2018 4:43 PLATELETS AM CDT CBC (HEMOGRAM ONLY) Routine 12/06/2018 4:24 Results for this AM CDT procedure are in the results section. PHOSPHORUS Routine 12/06/2018 4:24 Results for this AM CDT procedure are in the results section. MAGNESIUM Routine 12/06/2018 4:24 Results for this AM CDT procedure are in the results section. BASIC METABOLIC PANEL (7) Routine 12/06/2018 4:24 Results for this AM CDT procedure are in the results section. PLATELET COUNT Routine 12/06/2018 4:24 Results for this AM CDT procedure are in the results section. XR CHEST 1 VIEW STAT 12/06/2018 12:15 Results for this PORTABLE/BEDSIDE AM CDT procedure are in the results section. CBC W/PLT COUNT & AUTO Routine 12/05/2018 11:02 Results for this DIFFERENTIAL PM CDT procedure are in the results section. HGB/HCT (H&H) - STAT LAB STAT 12/05/2018 11:02 Results for this PM CDT procedure are in the results section. GLUCOSE-STAT LAB STAT 12/05/2018 11:02 Results for this PM CDT procedure are in the results section. POTASSIUM-STAT LAB STAT 12/05/2018 11:02 Results for this PM CDT procedure are in the results section. SODIUM NA-STAT LAB STAT 12/05/2018 11:02 Results for this PM CDT procedure are in the results section. BLOOD GAS, ARTERIAL STAT 12/05/2018 11:02 Results for this PM CDT procedure are in the results section. RRL CRITICAL LABS STAT 12/05/2018 11:02 Results for this (ABG,NA,K,H&H,GLUCOSE) PM CDT procedure are in the results section. FIBRINOGEN Routine 12/05/2018 11:02 Results for this PM CDT procedure are in the results section. CBC W/PLT COUNT & AUTO Routine 12/05/2018 11:02 Results for this DIFFERENTIAL PM CDT procedure are in the results section. PT/APTT STAT 12/05/2018 11:02 Results for this PM CDT procedure are in the results section. BLOOD GAS, ARTERIAL STAT 12/05/2018 9:43 Results for this PM CDT procedure are in the results section. PERIPHERAL VASCULAR REPORT 12/05/2018 9:20 - SCAN PM CDT CALCIUM, IONIZED STAT 12/05/2018 7:42 Results for this PM CDT procedure are in the results section. HGB/HCT (H&H) - STAT LAB STAT 12/05/2018 7:42 Results for this PM CDT procedure are in the results section. XR CHEST 1 VIEW STAT 12/05/2018 6:33 Results for this PORTABLE/BEDSIDE PM CDT procedure are in the results section. ECG 12-LEAD Routine 12/05/2018 6:19 Results for this PM CDT procedure are in the results section. TRANSFUSION SERVICE REPORT 12/05/2018 6:02 - SCAN PM CDT THROMBOELASTOGRAPH (TEG) Routine 12/05/2018 5:38 Results for this PM CDT procedure are in the results section. FIBRINOGEN STAT 12/05/2018 5:38 Results for this PM CDT procedure are in the results section. PROTHROMBIN TIME/INR STAT 12/05/2018 5:38 Results for this PM CDT procedure are in the results section. PT/APTT STAT 12/05/2018 5:38 Results for this PM CDT procedure are in the results section. OXYGEN SATURATION, STAT 12/05/2018 4:55 Results for this MEASURED PM CDT procedure are in the results section. CBC W/PLT COUNT & AUTO STAT 12/05/2018 4:51 Results for this DIFFERENTIAL PM CDT procedure are in the results section. HGB/HCT (H&H) - STAT LAB STAT 12/05/2018 4:51 Results for this PM CDT procedure are in the results section. GLUCOSE-STAT LAB STAT 12/05/2018 4:51 Results for this PM CDT procedure are in the results section. POTASSIUM-STAT LAB STAT 12/05/2018 4:51 Results for this PM CDT procedure are in the results section. SODIUM NA-STAT LAB STAT 12/05/2018 4:51 Results for this PM CDT procedure are in the results section. BLOOD GAS, ARTERIAL STAT 12/05/2018 4:51 Results for this PM CDT procedure are in the results section. RRL CRITICAL LABS STAT 12/05/2018 4:51 Results for this (ABG,NA,K,H&H,GLUCOSE) PM CDT procedure are in the results section. LACTIC ACID, ARTERIAL STAT 12/05/2018 4:51 Results for this PM CDT procedure are in the results section. CBC W/PLT COUNT & AUTO STAT 12/05/2018 4:51 Results for this DIFFERENTIAL PM CDT procedure are in the results section. PHOSPHORUS STAT 12/05/2018 4:51 Results for this PM CDT procedure are in the results section. MAGNESIUM STAT 12/05/2018 4:51 Results for this PM CDT procedure are in the results section. BASIC METABOLIC PANEL (7) STAT 12/05/2018 4:51 Results for this PM CDT procedure are in the results section. TRANSFUSE LEUKO-REDUCED Routine 12/05/2018 2:57 PLATELETS PM CDT FIBRINOGEN STAT 12/05/2018 2:36 Results for this PM CDT procedure are in the results section. PT/APTT STAT 12/05/2018 2:36 Results for this PM CDT procedure are in the results section. CBC (HEMOGRAM ONLY) STAT 12/05/2018 2:35 Results for this PM CDT procedure are in the results section. POCT-ACT Routine 12/05/2018 2:03 Results for this PM CDT procedure are in the results section. HGB/HCT (H&H) - STAT LAB STAT 12/05/2018 2:00 Results for this PM CDT procedure are in the results section. GLUCOSE-STAT LAB STAT 12/05/2018 2:00 Results for this PM CDT procedure are in the results section. POTASSIUM-STAT LAB STAT 12/05/2018 2:00 Results for this PM CDT procedure are in the results section. SODIUM NA-STAT LAB STAT 12/05/2018 2:00 Results for this PM CDT procedure are in the results section. BLOOD GAS, ARTERIAL STAT 12/05/2018 2:00 Results for this PM CDT procedure are in the results section. RRL CRITICAL LABS STAT 12/05/2018 2:00 Results for this (ABG,NA,K,H&H,GLUCOSE) PM CDT procedure are in the results section. THROMBOELASTOGRAPH (TEG) STAT 12/05/2018 1:57 Results for this PM CDT procedure are in the results section. POCT-ACT Routine 12/05/2018 1:32 Results for this PM CDT procedure are in the results section. HGB/HCT (H&H) - STAT LAB STAT 12/05/2018 1:29 Results for this PM CDT procedure are in the results section. GLUCOSE-STAT LAB STAT 12/05/2018 1:29 Results for this PM CDT procedure are in the results section. POTASSIUM-STAT LAB STAT 12/05/2018 1:29 Results for this PM CDT procedure are in the results section. SODIUM NA-STAT LAB STAT 12/05/2018 1:29 Results for this PM CDT procedure are in the results section. BLOOD GAS, ARTERIAL STAT 12/05/2018 1:29 Results for this PM CDT procedure are in the results section. RRL CRITICAL LABS STAT 12/05/2018 1:29 Results for this (ABG,NA,K,H&H,GLUCOSE) PM CDT procedure are in the results section. POCT-ACT Routine 12/05/2018 1:17 Results for this PM CDT procedure are in the results section. HGB/HCT (H&H) - STAT LAB STAT 12/05/2018 12:52 Results for this PM CDT procedure are in the results section. GLUCOSE-STAT LAB STAT 12/05/2018 12:52 Results for this PM CDT procedure are in the results section. POTASSIUM-STAT LAB STAT 12/05/2018 12:52 Results for this PM CDT procedure are in the results section. SODIUM NA-STAT LAB STAT 12/05/2018 12:52 Results for this PM CDT procedure are in the results section. BLOOD GAS, ARTERIAL STAT 12/05/2018 12:52 Results for this PM CDT procedure are in the results section. RRL CRITICAL LABS STAT 12/05/2018 12:52 Results for this (ABG,NA,K,H&H,GLUCOSE) PM CDT procedure are in the results section. POCT-ACT Routine 12/05/2018 12:40 Results for this PM CDT procedure are in the results section. HGB/HCT (H&H) - STAT LAB STAT 12/05/2018 12:37 Results for this PM CDT procedure are in the results section. GLUCOSE-STAT LAB STAT 12/05/2018 12:37 Results for this PM CDT procedure are in the results section. POTASSIUM-STAT LAB STAT 12/05/2018 12:37 Results for this PM CDT procedure are in the results section. SODIUM NA-STAT LAB STAT 12/05/2018 12:37 Results for this PM CDT procedure are in the results section. BLOOD GAS, ARTERIAL STAT 12/05/2018 12:37 Results for this PM CDT procedure are in the results section. RRL CRITICAL LABS STAT 12/05/2018 12:37 Results for this (ABG,NA,K,H&H,GLUCOSE) PM CDT procedure are in the results section. POCT-ACT Routine 12/05/2018 12:12 Results for this PM CDT procedure are in the results section. HGB/HCT (H&H) - STAT LAB STAT 12/05/2018 12:09 Results for this PM CDT procedure are in the results section. GLUCOSE-STAT LAB STAT 12/05/2018 12:09 Results for this PM CDT procedure are in the results section. POTASSIUM-STAT LAB STAT 12/05/2018 12:09 Results for this PM CDT procedure are in the results section. SODIUM NA-STAT LAB STAT 12/05/2018 12:09 Results for this PM CDT procedure are in the results section. BLOOD GAS, ARTERIAL STAT 12/05/2018 12:09 Results for this PM CDT procedure are in the results section. RRL CRITICAL LABS STAT 12/05/2018 12:09 Results for this (ABG,NA,K,H&H,GLUCOSE) PM CDT procedure are in the results section. POCT-ACT Routine 12/05/2018 11:45 Results for this AM CDT procedure are in the results section. BLOOD GAS, VENOUS Routine 12/05/2018 11:40 Results for this AM CDT procedure are in the results section. HGB/HCT (H&H) - STAT LAB STAT 12/05/2018 11:40 Results for this AM CDT procedure are in the results section. GLUCOSE-STAT LAB STAT 12/05/2018 11:40 Results for this AM CDT procedure are in the results section. POTASSIUM-STAT LAB STAT 12/05/2018 11:40 Results for this AM CDT procedure are in the results section. SODIUM NA-STAT LAB STAT 12/05/2018 11:40 Results for this AM CDT procedure are in the results section. BLOOD GAS, ARTERIAL STAT 12/05/2018 11:40 Results for this AM CDT procedure are in the results section. RRL CRITICAL LABS STAT 12/05/2018 11:40 Results for this (ABG,NA,K,H&H,GLUCOSE) AM CDT procedure are in the results section. POCT-ACT Routine 12/05/2018 11:25 Results for this AM CDT procedure are in the results section. JAYNE,3D 12/05/2018 9:05 Coronary artery AM CDT disease involving [place] coronary artery of [place] heart without angina pectoris Special Needs (POST OP ICU BED) ENDOSCOPIC HARVEST,VEIN 12/05/2018 9:05 AM CDT Coronary artery disease involving [place] coronary artery of [place] heart without angina pectoris Special Needs (POST OP ICU BED) BYPASS,AORTO CORONARY BILLIE/SVG 12/05/2018 9:05 AM CDT Coronary artery disease involving [place] coronary artery of [place] heart without angina pectoris Special Needs (POST OP ICU BED) HGB/HCT (H&H) - STAT STAT 12/05/2018 8:41 Results for this LAB AM CDT procedure are in the results section. GLUCOSE-STAT LAB STAT 12/05/2018 8:41 Results for this AM CDT procedure are in the results section. POTASSIUM-STAT LAB STAT 12/05/2018 8:41 Results for this AM CDT procedure are in the results section. SODIUM NA-STAT LAB STAT 12/05/2018 8:41 Results for this AM CDT procedure are in the results section. BLOOD GAS, ARTERIAL STAT 12/05/2018 8:41 Results for this AM CDT procedure are in the results section. CALCIUM, IONIZED STAT 12/05/2018 8:41 Results for this AM CDT procedure are in the results section. RRL CRITICAL LABS STAT 12/05/2018 8:41 Results for this (ABG,NA,K,H&H,GLUCOSE) AM CDT procedure are in the results section. HEMOGLOBIN A1C Routine 12/05/2018 4:04 Results for this AM CDT procedure are in the results section. PLATELET AGGREGATION: Routine 12/05/2018 4:04 Results for this FUNCTION SCREEN AM CDT procedure are in the results section. BASIC METABOLIC PANEL Routine 12/05/2018 4:04 Results for this (7) AM CDT procedure are in the results section. CBC (HEMOGRAM ONLY) Routine 12/05/2018 4:04 Results for this AM CDT procedure are in the results section. VITAMIN D, 25-HYDROXY Routine 12/05/2018 4:04 Results for this AM CDT procedure are in the results section. PTH, INTACT Routine 12/05/2018 4:04 Results for this AM CDT procedure are in the results section. PROTEIN AP Routine 12/05/2018 4:04 Results for this ELECTROPHORESIS, SERUM AM CDT procedure are in the results section. URINALYSIS W/ Routine 12/05/2018 3:51 Results for this MICROSCOPIC AM CDT procedure are in the results section. CREATININE, RANDOM Routine 12/05/2018 3:51 Results for this URINE AM CDT procedure are in the results section. PROTEIN, RANDOM URINE Routine 12/05/2018 3:51 Results for this AM CDT procedure are in the results section. ABORH, MANUAL STAT 12/04/2018 11:02 Results for this PM CDT procedure are in the results section. TYPE AND SCREEN, Routine 12/04/2018 10:28 Results for this AUTOMATED PM CDT procedure are in the results section. XR CHEST 1 VIEW Routine 12/04/2018 7:42 Results for this PORTABLE/BEDSIDE PM CDT procedure are in the results section. MAGNESIUM Routine 12/04/2018 4:06 Results for this AM CDT procedure are in the results section. APTT Routine 12/04/2018 4:06 Results for this AM CDT procedure are in the results section. BASIC METABOLIC PANEL Routine 12/04/2018 4:06 Results for this (7) AM CDT procedure are in the results section. CBC (HEMOGRAM ONLY) Routine 12/04/2018 4:06 Results for this AM CDT procedure are in the results section. PLATELET AGGREGATION: Routine 12/03/2018 1:12 Results for this DRUG EFFECT PM CDT procedure are in the results section. APTT Routine 12/03/2018 12:25 Results for this PM CDT procedure are in the results section. CAROTID DOPPLER Routine 12/03/2018 11:20 Results for this BILATERAL AM CDT procedure are in the results section. APTT Routine 12/03/2018 5:57 Results for this AM CDT procedure are in the results section. BASIC METABOLIC PANEL Routine 12/03/2018 5:57 Results for this (7) AM CDT procedure are in the results section. CBC (HEMOGRAM ONLY) Routine 12/03/2018 5:57 Results for this AM CDT procedure are in the results section. APTT Routine 12/03/2018 12:01 Results for this AM CDT procedure are in the results section. ECHOCARDIOGRAM REPORT 12/02/2018 9:11 - SCAN PM CDT APTT Routine 12/02/2018 4:34 Results for this PM CDT procedure are in the results section. 2D ECHO W/ DOPPLER Routine 12/02/2018 11:40 Results for this (CW/PW/COLOR) AM CDT procedure are in the results section. APTT Routine 12/02/2018 8:58 Results for this AM CDT procedure are in the results section. B-TYPE NATRIURETIC STAT 12/02/2018 8:58 Results for this FACTOR (BNP) AM CDT procedure are in the results section. TROPONIN I STAT 12/02/2018 3:59 Results for this AM CDT procedure are in the results section. LIPID PANEL Routine 12/02/2018 3:59 Results for this AM CDT procedure are in the results section. BASIC METABOLIC PANEL Routine 12/02/2018 3:59 Results for this (7) AM CDT procedure are in the results section. CBC (HEMOGRAM ONLY) Routine 12/02/2018 2:33 Results for this AM CDT procedure are in the results section. POCT-ACT Routine 12/01/2018 6:07 Results for this PM CDT procedure are in the results section. CBC W/PLT COUNT & AUTO STAT 12/01/2018 5:56 Results for this DIFFERENTIAL PM CDT procedure are in the results section. PROTHROMBIN TIME/INR STAT 12/01/2018 5:56 Results for this PM CDT procedure are in the results section. PT/APTT Routine 12/01/2018 5:56 Results for this PM CDT procedure are in the results section. CBC W/PLT COUNT & AUTO STAT 12/01/2018 5:56 Results for this DIFFERENTIAL PM CDT procedure are in the results section. COMPREHENSIVE STAT 12/01/2018 5:56 Results for this METABOLIC PANEL PM CDT procedure are in the results section. POCT-ACT Routine 12/01/2018 5:50 Results for this PM CDT procedure are in the results section. R CATH 12/01/2018 4:00 NSTEMI (non-ST PM CDT elevation myocardial infarction) (HCC) L CATH & PCI 12/01/2018 4:00 NSTEMI (non-ST PM CDT elevation myocardial infarction) (HCC) after 12/11/2017 Results Urinalysis w/Microscopic + Reflex to Culture (12/12/2018 12:44 PM CDT) Color, UA Yellow [facility] Clarity, UA Hazy [facility] Specific Greer, UA 1.008 1.001 - 1.035 [facility] pH, UA 7.5 5.0 - 8.0 [facility] Protein, UA 20 mg/dL (A) Negative [facility] Glucose, UA Negative Negative [facility] Ketones, UA Negative Negative [facility] Bilirubin, UA Negative Negative [facility] Blood, UA Negative Negative [facility] Nitrite, UA Negative Negative [facility] Leukocytes, UA Trace (A) Negative [facility] Urobilinogen, UA 4.0 (H) 0.2 - 1.0 mg/dL [facility] RBC, UA <1 /HPF [facility] WBC, UA 3 /HPF [facility] Squam Epithel, UA 1 /HPF [facility] Specimen Source [facility] Specimen Urine - Urine, Voided Performing Organization Address City/State/Zipcode Phone Number [facility] [address] [place] [address] CENTER CBC with platelet count + automated diff (12/12/2018 4:31 AM CDT)Only the most recent of9 resultswithin the time period is included. WBC 13.3 (H) 3.5 - 10.5 K/L [facility] RBC 2.86 (L) 4.63 - 6.08 M/L [facility] Hemoglobin 9.1 (L) 13.7 - 17.5 GM/DL [facility] Hematocrit 27.5 (L) 40.1 - 51.0 % [facility] MCV 96.2 (H) 79.0 - 92.[address] [facility] MCH 31.8 25.7 - 32.[address] [facility] MCHC 33.1 32.3 - 36.5 GM/DL [facility] RDW 15.1 (H) 11.6 - 14.4 % [facility] Platelets 225 150 - 450 K/CU MM [facility] MPV 11.5 9.4 - 12.[address] [facility] nRBC 0 0 - 0 /[address] [facility] % Neutros 73 % [facility] % Lymphs 16 % [facility] % Monos 6 % [facility] % Eos 3 % [facility] % Baso 1 % [facility] # Neutros 9.69 (H) 1.78 - 5.38 K/L [facility] # Lymphs 2.16 1.32 - 3.57 K/L [facility] # Monos 0.84 (H) 0.30 - 0.82 K/L [facility] # Eos 0.39 0.04 - 0.54 K/L [facility] # Baso 0.08 0.01 - 0.08 K/L [facility] Immature Granulocytes-Relative 1 0 - 1 % [facility] Specimen Blood - Arm, Left Performing Organization Address City/State/Zipcode Phone Number [address] [address] [phone] CENTER Phosphorus (12/12/2018 4:31 AM CDT)Only the most recent of8 resultswithin the time period is included. Phosphorus 2.8 2.3 - 4.7 mg/dL [facility] Specimen Blood - Arm, Left Performing Organization Address City/State/Zipcode Phone Number [address] [address] CENTER US renal complete (12/12/2018 12:30 AM CDT) Narrative Performed At FINAL REPORT [facility] Ultrasound of the Kidneys Clinical History:ckd Discussion: Sonographic evaluation of the kidneys was performed. There is no prior study for direct comparison. The study is limited due to excessive bowel gas. Right kidney:11.2 x 4.9 x 4.1 cm, with cortical thickness of 1.2 cm.Increased cortical echogenicity.1.3 x 1.3 x 1.1 cm simple upper pole cyst.No shadowing calculus. No hydronephrosis. Left kidney: Not well visualized due to bowel gas.9.1 x 4.5 x 4.4 cm, with cortical thickness of 1.3 cm.Increased cortical echogenicity.No mass.No shadowing calculus.No hydronephrosis. Limited doppler evaluation of bilateral main renal arteries and veins demonstrate patency. Bladder:Mildly distended. Mild diffuse mural thickening may be due to underdistention. Patient was unable to void. Impression: Limited exam. Echogenic kidneys in keeping with medical renal disease. No hydronephrosis. Small right renal cyst. Mild diffuse mural thickening of the urinary bladder may be due to underdistention however correlation with urinalysis is advised to exclude infection. Signed: Eladio Gómez MD Report Verified Date/Time:12/12/2018 02:06:07 Reading Location: [address] Body Reading Room Procedure Note Interface, External Ris In - 12/12/2018 2:08 AM CDT FINAL REPORT Ultrasound of the Kidneys Clinical History: ckd Discussion: Sonographic evaluation of the kidneys was performed. There is no prior study for direct comparison. The study is limited due to excessive bowel gas. Right kidney: 11.2 x 4.9 x 4.1 cm, with cortical thickness of 1.2 cm. Increased cortical echogenicity. 1.3 x 1.3 x 1.1 cm simple upper pole cyst. No shadowing calculus. No hydronephrosis. Left kidney: Not well visualized due to bowel gas. 9.1 x 4.5 x 4.4 cm, with cortical thickness of 1.3 cm. Increased cortical echogenicity. No mass. No shadowing calculus. No hydronephrosis. Limited doppler evaluation of bilateral main renal arteries and veins demonstrate patency. Bladder: Mildly distended. Mild diffuse mural thickening may be due to underdistention. Patient was unable to void. Impression: Limited exam. Echogenic kidneys in keeping with medical renal disease. No hydronephrosis. Small right renal cyst. Mild diffuse mural thickening of the urinary bladder may be due to underdistention however correlation with urinalysis is advised to exclude infection. Signed: Eladio Gómez MD Report Verified Date/Time: 12/12/2018 02:06:07 Reading Location: [facility] B1 [id number] CT Body Reading Room Performing Organization Address City/State/Zipcode Phone Number RIS Magnesium (12/11/2018 3:56 AM CDT)Only the most recent of7 resultswithin the time period is included. Magnesium 2.1 1.6 - 2.6 mg/dL [facility] Specimen Blood - Arm, Left Performing Organization Address City/State/[place] [address] CENTER Basic Metabolic Panel (12/11/2018 3:56 AM CDT)Only the most recent of14 resultswithin the time period is included. Sodium 140 136 - 145 meq/L [facility] Potassium 3.4 (L) 3.5 - 5.1 meq/L [facility] Chloride 111 (H) 98 - 107 meq/L [facility] CO2 24 22 - 29 meq/L [facility] BUN 20 7 - 21 mg/dL [facility] Creatinine 1.29 (H) 0.57 - 1.25 mg/dL [facility] Glucose 110 (H) 70 - 105 mg/dL [facility] Calcium 8.3 (L) 8.4 - 10.2 mg/dL [facility] EGFR 56Comment: ESTIMATED GFR IS mL/min/1.73 sq m [facility] NOT ACCURATE CREATININE [facility] CLEARANCE IN PREDICTING GLOMERULAR FILTRATION RATE. ESTIMATED GFR IS NOT APPLICABLE FOR DIALYSIS PATIENTS. Specimen Blood - Arm, Left Performing Organization Address City/State/Zipcode Phone Number [facility] MEDICAL [address] [place] [address] CENTER TRANSFUSION SERVICE REPORT - SCAN (12/10/2018 6:00 PM CDT)Only the most recent of6 resultswithin the time period is included. Narrative Performed At VASCULAR DIAGRAM -SCAN (12/10/2018 5:49 PM CDT) Narrative Performed At Prepare Leuko-Red RBC (12/09/2018 11:54 PM CDT)Only the most recent of2 resultswithin the time period is included. CROSSMATCH COMPATIBLE SAFETRACE TX Unit ABO A Pos SAFETRACE TX UNIT NUMBER [id number] SAFETRACE TX Status READY SAFETRACE TX Blood Bank Product RED BLOOD CELLS SAFETRACE TX PRODUCT CODE [id number] SAFETRACE TX CROSSMATCH COMPATIBLE SAFETRACE TX Unit ABO A Pos SAFETRACE TX UNIT NUMBER [id number] SAFETRACE TX Status TX_TIMEINCHART SAFETRACE TX Blood Bank Product RED BLOOD CELLS SAFETRACE TX PRODUCT CODE [id number] SAFETRACE TX Specimen Other Performing Organization Address City/[facility] Phone Number SAFETRACE TX XR chest 1 view portable / bedside (12/09/2018 7:23 AM CDT)Only the most recent of7 resultswithin the time period is included. Narrative Performed At FINAL REPORT [facility] TECHNIQUE: Frontal chest radiograph dated 12/09/2018. CLINICAL HISTORY: Post op cardiac COMPARISON STUDY: Chest radiograph dated 12/08/2018 IMPRESSION: Linear atelectasis is seen in the left lung base. No pleural effusion or pneumothorax. Cardiomediastinal silhouette is stable in size. No pulmonary edema. Degenerative changes are seen in the spine. Midline sternotomy wires are intact and well aligned. Signed: Zachariah Camejo MD Report Verified Date/Time:12/09/2018 10:12:03 Reading Location: [facility] Radiology Reading Room Procedure Note Interface, External Ris In - 12/09/2018 10:14 AM CDT FINAL REPORT TECHNIQUE: Frontal chest radiograph dated 12/09/2018. CLINICAL HISTORY: Post op cardiac COMPARISON STUDY: Chest radiograph dated 12/08/2018 IMPRESSION: Linear atelectasis is seen in the left lung base. No pleural effusion or pneumothorax. Cardiomediastinal silhouette is stable in size. No pulmonary edema. Degenerative changes are seen in the spine. Midline sternotomy wires are intact and well aligned. Signed: Zachariah Camejo MD Report Verified Date/Time: 12/09/2018 10:12:03 Reading Location: [facility] Radiology Reading Room Performing Organization Address [facility] Phone Number GE RIS Hemoglobin and hematocrit (12/08/2018 7:02 PM CDT)Only the most recent of4 resultswithin the time period is included. Hemoglobin 8.1 (L) 13.7 - 17.5 GM/DL [facility] Hematocrit 24.8 (L) 40.1 - 51.0 % [facility] Specimen Blood - Arm, Right Performing Organization Address [facility] Phone Number [address] [address] CENTER Transfuse Leuko-Red RBC, 2 Units (12/08/2018 5:48 PM CDT)Only the most recent of4 resultswithin the time period is included.Type and screen, automated (2018 6:03 AM CDT)Only the most recent of2 resultswithin the time period is included. ABO/RH AUTOMATED (BEAKER) A POSITIVE [facility] Ab Scrn NEGATIVE [facility] Specimen Blood Performing Organization Address [facility] Phone Number [address] [address] EKG 12 lead (12/07/2018 7:39 AM CDT)Only the most recent of2 resultswithin the time period is included. Narrative Performed At Ventricular Rate 89 BPM GE MUSE Atrial Rate 89 BPM P-R Interval 208 ms QRS Duration 86 ms Q-T Interval 364 ms QTC Calculation(Bazett) 442 ms P [place] 26 degrees R [place] -3 degrees T [place] 34 degrees Normal sinus rhythm Possible Inferior infarct , age undetermined Abnormal ECG No previous ECGs available Confirmed by MD Queen Roberto ([id number]) on 12/07/2018 2:32:46 PM Procedure Note Interface, External Ris In - 12/07/2018 2:32 PM CDT Ventricular Rate 89 BPM Atrial Rate 89 BPM P-R Interval 208 ms QRS Duration 86 ms Q-T Interval 364 ms QTC Calculation(Bazett) 442 ms P [place] 26 degrees R [place] -3 degrees T [place] 34 degrees Normal sinus rhythm Possible Inferior infarct , age undetermined Abnormal ECG No previous ECGs available Confirmed by MD Queen Roberto ([id number]) on 12/07/2018 2:32:46 PM Performing Organization Address City/State/Zipcode Phone Number GE MUSE CBC (Hemogram only) (12/07/2018 4:21 AM CDT)Only the most recent of7 resultswithin the time period is included. WBC 14.5 (H) 3.5 - 10.5 K/L [facility] RBC 2.29 (L) 4.63 - 6.08 M/L [facility] Hemoglobin 7.3 (L) 13.7 - 17.5 GM/DL [facility] Hematocrit 22.2 (L) 40.1 - 51.0 % [facility] MCV 96.9 (H) 79.0 - 92.[address] [facility] MCH 31.9 25.7 - 32.[address] [facility] MCHC 32.9 32.3 - 36.5 GM/DL [facility] RDW 15.2 (H) 11.6 - 14.4 % [facility] Platelets 159 150 - 450 K/CU MM [facility] MPV 11.9 9.4 - 12.[address] [facility] nRBC 0 0 - 0 /[address] [facility] Specimen Blood Performing Organization Address [facility] Phone Number [address] [address] [phone] [place] Prepare Leuko-Red PLT (12/06/2018 11:54 PM CDT)Only the most recent of2 resultswithin the time period is included. Unit ABO B Pos SAFETRACE TX UNIT NUMBER [id number] SAFETRACE TX Status TX_TIMEINCHART SAFETRACE TX Blood Bank Product PLATELETS SAFETRACE TX PRODUCT CODE [id number] SAFETRACE [place] Specimen Blood Performing Organization Address [facility] Phone Number SAFETRACE TX Potassium (12/06/2018 10:21 AM CDT) Potassium 5.4 (H)Comment: Specimen 3.5 - 5.1 meq/L [facility] slightly hemolyzed [facility] Specimen Blood Narrative Performed At Every 8 hours PRN for Creatinine greater than [facility] or equal to 2 mg/dL. Performing Organization Address [facility] Phone Number [address] [address] [phone] [place] Potassium-Stat Lab (12/06/2018 6:26 AM CDT)Only the most recent of10 resultswithin the time period is included. Potassium 4.9 3.6 - 5.5 meq/L [facility] Specimen Blood, Arterial - Line, Arterial Performing Organization Address [facility] Phone Number [address] [address] [phone] [place] Blood gas, arterial (12/06/2018 6:06 AM CDT)Only the most recent of11 resultswithin the time period is included. pH, Arterial 7.40 7.35 - 7.45 [facility] pCO2, Arterial 37 35 - [address] [facility] pO2, Arterial 78 (L) 80 - [address] [facility] O2 Sat, Arterial 95.7 (L) 96.0 - 97.0 % [facility] HCO3, Arterial 22 21 - 29 mmol/L [facility] Base Excess, Arterial -2.4 (L) -2.0 - 3.0 mmol/L [facility] Patient Temperature 36.[address] [facility] FIO2 21.0 % [facility] Specimen Blood, Arterial Performing Organization Address City[facility] Phone Number [address] [address] CENTER Transfuse Leuko-Red PLT (12/06/2018 4:43 AM CDT)Only the most recent of4 resultswithin the time period is included.Platelet count (12/06/2018 4:24 AM CDT) Platelets 203 150 - 450 K/CU MM [facility] Specimen Blood Performing Organization Address [facility] Phone Number [address] [address] [phone] CENTER Sodium Na-Stat Lab (12/05/2018 11:02 PM CDT)Only the most recent of9 resultswithin the time period is included. Sodium 136 135 - 148 meq/L [facility] Specimen Blood, Arterial Performing Organization Address City/[facility] Phone Number [address] [address] [phone] CENTER Glucose-Stat Lab (12/05/2018 11:02 PM CDT)Only the most recent of9 resultswithin the time period is included. Glucose 172 (H) 70 - 110 mg/dL [facility] Specimen Blood, Arterial Performing Organization Address [facility] Cent[facility]ode Phone Number [address] [address] CENTER PT/aPTT (12/05/2018 11:02 PM CDT)Only the most recent of4 resultswithin the time period is included. Protime 16.6 (H) 11.7 - 14.[address] [facility] INR 1.3 <=5.9 [facility] PTT 32.4 22.5 - 36.[address] [facility] Specimen Blood Narrative Performed At RECOMMENDED COUMADIN/WARFARIN INR THERAPY [facility] RANGES STANDARD DOSE: 2.0 - 3.0 Includes: PROPHYLAXIS for venous thrombosis, systemic embolization; TREATMENT for venous thrombosis and/or pulmonary embolus. HIGH RISK: Target INR is 2.5-3.5 for patients with mechanical heart valves. Performing Organization Address [facility] Phone Number [address] [address] [place] HGB/HCT (H&H)-Stat Lab (12/05/2018 11:02 PM CDT)Only the most recent of10 resultswithin the time period is included. Hemoglobin 9.1 (L) 13.0 - 16.8 g/dL [facility] Hematocrit 27.0 (L) 40.0 - 50.0 % [facility] Specimen Blood, Arterial Performing Organization Address [facility] Cent[facility]ode Phone Number [address] [address] [phone] CENTER Fibrinogen (12/05/2018 11:02 PM CDT)Only the most recent of3 resultswithin the time period is included. Fibrinogen 340 225 - 434 mg/dl [facility] Specimen Blood Performing Organization Address City/[facility] Cent[facility]ode Phone Number [address] [address] CENTER PERIPHERAL VASCULAR REPORT - SCAN (12/05/2018 9:20 PM CDT) Narrative Performed At Calcium, Ionized (12/05/2018 7:42 PM CDT)Only the most recent of2 resultswithin the time period is included. Calcium, Ion 1.11 (L) 1.12 - 1.27 mmol/L [facility] pH, Blood 7.51 [facility] Specimen Blood Performing Organization Address City/[facility] Phone Number [address] [address] [place] Thromboelastograph (TEG) (12/05/2018 5:38 PM CDT)Only the most recent of2 resultswithin the time period is included. TEG Activated Clotting Time 13.0 (H) 4.0 - 7.[address] [facility] TEG Fibrinogen Activity 55.7 (L) 61.0 - 73.[address] [facility] TEG Platelet Aggregation 57.3 55.0 - 65.[address] [facility] TEG Fibrinolysis 0.0 0.0 - 5.0 % [facility] TEG-H Activated Clotting Time 7.2 (H) 4.0 - 7.[address] [facility] TEG-H Fibrinogen Activity 71.5 61.0 - 73.[address] [facility] TEG-H Platelet Aggregation 56.9 55.0 - 65.[address] [facility] TEG-H Fibrinolysis 0.0 0.0 - 5.0 % [facility] Specimen Blood - Line, Arterial Performing Organization Address City/[facility] Cent[facility]ode Phone Number [facility] [address] [place] [phone] [place] Prothrombin time/INR (12/05/2018 5:38 PM CDT)Only the most recent of2 resultswithin the time period is included. Protime 16.5 (H) 11.7 - 14.[address] [facility] INR 1.[address] <=[address]9 [facility] Specimen Blood - Line, Arterial Narrative Performed At RECOMMENDED COUMADIN/WARFARIN INR THERAPY [facility] RANGES STANDARD DOSE: 2.0 - 3.0 Includes: PROPHYLAXIS for venous thrombosis, systemic embolization; TREATMENT for venous thrombosis and/or pulmonary embolus. HIGH RISK: Target INR is 2.5-3.5 for patients with mechanical heart valves. Performing Organization Address [facility] Centercode Phone Number [address] [address] [place] Oxygen saturation, measured (12/05/2018 4:55 PM CDT) O2 Saturation (Measured) 81.3 % [facility] Specimen Blood - Central Venous Line Performing Organization Address [facility] Phone Number [address] [address] [place] Lactic Acid, Arterial (12/05/2018 4:51 PM CDT) Lactate, Art 1.9 0.5 - 2.2 mmol/L [facility] Specimen Blood, Arterial - Line, Arterial Performing Organization Address [facility] Phone Number [address] [address] [place] POC ACTIVATED CLOTTING TIME (12/05/2018 2:03 PM CDT)Only the most recent of9 resultswithin the time period is included. Activated Clotting Time 120Comment: TESTED AT sec [address] [address] Specimen Blood Performing Organization Address [facility] Phone Number [address] [address] [place] Blood gas, venous (12/05/2018 11:40 AM CDT) pH, Adrien 7.42 7.32 - 7.42 [facility] pCO2, Adrein 39 (L) 41 - [address] [facility] pO2, Adrien 63 (H) 25 - [address] [facility] O2 Sat, Adrien 95.3 (H) 40.0 - 70.0 % [facility] HCO3, Adrien 26 21 - 29 mmol/L [facility] Base Excess, Adrien 0.0 -2.0 - 3.0 mmol/L [facility] Patient Temperature 33.[address] [facility] FIO2 100.0 % [facility] Specimen Blood Performing Organization Address [facility] Centercode Phone Number [address] [address] [place] Platelet Aggregation: Function Screen (12/05/2018 4:04 AM CDT) Weak ADP 55 (L) 60 - 91 % [facility] Plt. Function Screen 50-59% indicates mild Interpretation platelet dysfunction [facility] Pathologist: Sam Ramírez MD (electronic signature) [facility] Platelets 169 150 - 450 K/CU [facility] Specimen Blood Narrative Performed At Platelet Function Screen results may be [facility] falsely low with platelet counts <100,000/cu mm. Performing Organization Address City/[facility] Centercode Phone Number [address] [address] [place] Vitamin D, 25-Hydroxy (12/05/2018 4:04 AM CDT) Vitamin D 25-Hydroxy 24.8 6.6 - 49.9 ng/mL [facility] Specimen Blood Narrative Performed At Effective 06/19/2017: Reference Range Change [facility] New: 6.6-49.9 ng/mL Previous: 13.0-47.8 ng/mL Recommended Vitamin D Target Range: 30.0-40.0 ng/mL Performing Organization Address City/[facility]/Zipcode Phone Number [address] [address] [phone] [place] Protein electrophoresis, serum (12/05/2018 4:04 AM CDT) Albumin Fraction 3.1 (L) 3.5 - 5.5 g/dL [facility] Alpha 1 Fraction 0.2 0.2 - 0.4 g/dL [facility] Alpha 2 Fraction 0.8 0.5 - 0.9 g/dL [facility] Beta Fraction 0.8 0.6 - 1.1 g/dL [facility] Gamma Globulin Fraction 1.1 0.7 - 1.7 g/dL [facility] Interpretation All fractions present in expected distribution [facility] with slight decrease in serum albumin. No monoclonal bands detected. Pathologist: Terrie Rubio MD (electronic signature) [facility] Protein, Total 6.1 6.0 - 8.3 gm/dL [facility] Specimen Blood Performing Organization Address [facility] Centerconv Phone Number [address] [address] [place] PTH, intact (12/05/2018 4:04 AM CDT) PTH 69.0 8.5 - 72.5 pg/mL [facility] Specimen Blood Performing Organization Address City/[facility]/Zipcode Phone Number [address] [address] [place] Hemoglobin A1c (12/05/2018 4:04 AM CDT) Hemoglobin A1C 5.2 4.3 - 6.1 % [facility] Specimen Blood Performing Organization Address City/[facility]/Zipcode Phone Number [address] [address] [phone] [place] Protein, random urine (12/05/2018 3:51 AM CDT) Protein, Urine 19 (H) 0 - 14 mg/dL [facility] Specimen Urine - Urine, Voided Performing Organization Address [facility] [place] [address] [phone] [place] Creatinine, random urine (12/05/2018 3:51 AM CDT) Creatinine, Ur 68.3 mg/dL [facility] Specimen Urine - Urine, Voided Narrative Performed At Reference Range: No Normals [facility] Performing Organization Address [facility] [place] [address] [place] Urinalysis w/Microscopic (12/05/2018 3:51 AM CDT) Color, UA Yellow [facility] Clarity, UA Clear [facility] Specific Greer, UA 1.008 1.001 - 1.035 [facility] pH, UA 7.5 5.0 - 8.0 [facility] Protein, UA 10 mg/dL (A) Negative [facility] Glucose, UA Negative Negative [facility] Ketones, UA Negative Negative [facility] Bilirubin, UA Negative Negative [facility] Blood, UA Negative Negative [facility] Nitrite, UA Negative Negative [facility] Leukocytes, UA Negative Negative [facility] Urobilinogen, UA 2.0 (H) 0.2 - 1.0 mg/dL [facility] RBC, UA <1 /HPF [facility] WBC, UA 0 /HPF [facility] Mucus Rare [facility] Amorphous Crystals Rare [facility] Specimen Source Urine, Voided [facility] Specimen Urine - Urine, Voided Performing Organization Address City/[facility]/Zipcode Phone Number [facility] [address] [place] [address] CENTER ABORH, manual (12/04/2018 11:02 PM CDT) ABO Grouping A [facility] Rh Factor POS [facility] Specimen Blood Performing Organization Address [facility] Centercode Phone Number [address] [address] [phone] aPTT (12/04/2018 4:06 AM CDT)Only the most recent of6 resultswithin the time period is included. PTT 83.1 (H) 22.5 - 36.[address] [facility] Specimen Blood Performing Organization Address [facility] Centerconv Phone Number [facility] [address] [place] [address] [place] Platelet Aggregation: Drug Effect (12/03/2018 1:12 PM CDT) Strong ADP 67 (L) 70 - 94 % [facility] Weak ADP 65 60 - 91 % [facility] Arachadonic Acid 5 (L) 63 - 89 % [facility] Interpretation Normal response to ADP suggests a lack of [id number] effect. [facility] Decreased response to arachidonic acid suggests aspirin-like effect. [facility] Pathologist: Sandi Ovalle MD [facility] (electronic signature) [facility] Platelets 163 150 - 450 K/CU MM [facility] Specimen Blood Narrative Performed At Platelet aggregation results may be falsely [facility] low with platelet counts <100,000/CU MM. Performing Organization Address City/State/Zipcode Phone Number [facility] [address] [place] [address] CENTER Carotid doppler bilateral (12/03/2018 11:20 AM CDT) Ejection [facility] ECHO HEARTLAB [facility]ACS Impressions Performed At Right Impression [facility] ECHO HEARTLAB [facility] CPACS 1. There is <50% diameter reduction (approximately 11% by 2-D measurement) in the internal carotid artery with a peak velocity of 55/17 cm/sec and heterogeneous plaque. 2. There is non-occluding plaque in the external carotid artery. 3. There is non-occluding plaque in the common carotid artery. 4. The vertebral artery flow is antegrade and normal. 5. The subclavian artery is within normal limits where visualized. Left Impression 1. There is <50% diameter reduction (approximately 48% by 2-D measurement) in the internal carotid artery with a peak velocity of 84/30 cm/sec and heterogeneous/shadowing plaque. 2. There is non-occluding plaque in the external carotid artery. 3. There is non-occluding plaque in the common carotid artery. 4. The vertebral artery flow is antegrade and normal. 5. The subclavian artery is within normal limits where visualized. Conclusions Summary Carotid duplex scanning and color flow imaging were performed bilaterally. The arteries were adequately visualized. The bilateral internal carotid arteries had <50% hemodynamically insignificant stenosis (approximately 11% by 2-D measurement on the right, approximately 48% by 2-D measurement on the left) with heterogeneous/shadowing plaque. The vertebral artery flow was antegrade and normal bilaterally. Signature Velocities are measured in cm/s ; Diameters are measured in cm Carotid Right Measurements + +----+----+-----+ +---- + + !Location !PSV !EDV !Angle!%Stenosis 2D!%Stenosis Doppler!Tortuosity ! + +----+----+-----+ +---- + + !Prox CCA !52.8!19.9!60 !! ! ! + +----+----+-----+ +---- + + !Dist CCA !55.7!17!60 !! ! ! + +----+----+-----+ +---- + + !Prox ICA !55.4!17.7!60 !11% !<50% ! ! + +----+----+-----+ +---- + + !Dist ICA !57.8!25.9!60 !! ! ! + +----+----+-----+ +---- + + !Prox ECA !49.8!9.97!60 !! ! ! + +----+----+-----+ +---- + + !Vertebral!79.8!35!60 !! ! ! + +----+----+-----+ +---- + + !Prox Subclavian!53.8!!60 !! ! ! + +----+----+-----+ +---- + + - Additional Measurements:ICAPSV/CCAPSV 1.04.ICAEDV/CCAEDV 1.3. Carotid Left Measurements + +----+----+-----+ +---- + + !Location !PSV !EDV !Angle!%Stenosis 2D!%Stenosis Doppler!Tortuosity ! + +----+----+-----+ +---- + + !Prox CCA !82.1!27.6!60 !! ! ! + +----+----+-----+ +---- + + !Prox ICA !84.1!30.6!60 !48% !<50% ! ! + +----+----+-----+ +---- + + !Dist ICA !89.6!39.3!60 !! ! ! + +----+----+-----+ +---- + + !Prox ECA !32.2!7.46!60 !! ! ! + +----+----+-----+ +---- + + !Vertebral!66.8!23.6!60 !! ! ! + +----+----+-----+ +---- + + !Prox Subclavian!64.5!9.38!60 !! ! ! + +----+----+-----+ +---- + + - Additional Measurements:ICAEDV/CCAEDV 1.42. Narrative Performed At LAB - Carotid Duplex Study [facility] ECHO HEARTLAB [facility] Demographics Patient TYLOR ArredondoDate of Study 12/03/2018 68 Visit [id number] Male of 1950 Referring Erik ZHAO Room Number SCPR Physician Estate Planning Attorney Dwayne Carvajal [facility] Physician Procedure Type of Study: Cerebral: Carotid, CAROTID DOPPLER, BILATERAL. Indications for Study:Pre OP CABG. Patient Status:Routine. Study Location:Portable. Technical Quality:Adequate visualization. Risk Factors History of Disease +---------+----+ + !Diagnosis!Date!Comments ! +---------+----+ + !Other!!History Stroke, Pre-OP CABG ! +---------+----+ + Procedure Note Interface, External Ris In - 12/05/2018 9:38 AM CDT PV LAB - Carotid Duplex Study Demographics Patient Name TYLOR JOHNSON Date of Study 12/03/2018 Age 68 Visit Number [id number] Gender Male Accession Number [id number] Date of 1950 Referring Erik CECE Room Number SCPR Physician Estate Planning Attorney Dwayne Golden Interpreting Joanna Carvajal, T Physician Procedure Type of Study: Cerebral: Carotid, CAROTID DOPPLER, BILATERAL. Indications for Study:Pre OP CABG. Patient Status:Routine. Study Location:Portable. Technical Quality:Adequate visualization. Risk Factors History of Disease +---------+----+ + !Diagnosis!Date!Comments ! +---------+----+ + !Other ! !History Stroke, Pre-OP CABG ! +---------+----+ + Impressions Right Impression 1. There is <50% diameter reduction (approximately 11% by 2-D measurement) in the internal carotid artery with a peak velocity of 55/17 cm/sec and heterogeneous plaque. 2. There is non-occluding plaque in the external carotid artery. 3. There is non-occluding plaque in the common carotid artery. 4. The vertebral artery flow is antegrade and normal. 5. The subclavian artery is within normal limits where visualized. Left Impression 1. There is <50% diameter reduction (approximately 48% by 2-D measurement) in the internal carotid artery with a peak velocity of 84/30 cm/sec and heterogeneous/shadowing plaque. 2. There is non-occluding plaque in the external carotid artery. 3. There is non-occluding plaque in the common carotid artery. 4. The vertebral artery flow is antegrade and normal. 5. The subclavian artery is within normal limits where visualized. Conclusions Summary Carotid duplex scanning and color flow imaging were performed bilaterally. The arteries were adequately visualized. The bilateral internal carotid arteries had <50% hemodynamically insignificant stenosis (approximately 11% by 2-D measurement on the right, approximately 48% by 2-D measurement on the left) with heterogeneous/shadowing plaque. The vertebral artery flow was antegrade and normal bilaterally. Signature Velocities are measured in cm/s ; Diameters are measured in cm Carotid Right Measurements + +----+----+-----+ + + + !Location !PSV !EDV !Angle!%Stenosis 2D!%Stenosis Doppler!Tortuosity ! + +----+----+-----+ + + + !Prox CCA !52.8!19.9!60 ! ! ! ! + +----+----+-----+ + + + !Dist CCA !55.7!17 !60 ! ! ! ! + +----+----+-----+ + + + !Prox ICA !55.4!17.7!60 !11% !<50% ! ! + +----+----+-----+ + + + !Dist ICA !57.8!25.9!60 ! ! ! ! + +----+----+-----+ + + + !Prox ECA !49.8!9.97!60 ! ! ! ! + +----+----+-----+ + + + !Vertebral !79.8!35 !60 ! ! ! ! + +----+----+-----+ + + + !Prox Subclavian!53.8! !60 ! ! ! ! + +----+----+-----+ + + + - Additional Measurements:ICAPSV/CCAPSV 1.04.ICAEDV/CCAEDV 1.3. Carotid Left Measurements + +----+----+-----+ + + + !Location !PSV !EDV !Angle!%Stenosis 2D!%Stenosis Doppler!Tortuosity ! + +----+----+-----+ + + + !Prox CCA !82.1!27.6!60 ! ! ! ! + +----+----+-----+ + + + !Prox ICA !84.1!30.6!60 !48% !<50% ! ! + +----+----+-----+ + + + !Dist ICA !89.6!39.3!60 ! ! ! ! + +----+----+-----+ + + + !Prox ECA !32.2!7.46!60 ! ! ! ! + +----+----+-----+ + + + !Vertebral !66.8!23.6!60 ! ! ! ! + +----+----+-----+ + + + !Prox Subclavian!64.5!9.38!60 ! ! ! ! + +----+----+-----+ + + + - Additional Measurements:ICAEDV/CCAEDV 1.42. Performing Organization Address City/State/Zipcode Phone Number [facility] ECHO HEARTLAB [facility] ECHOCARDIOGRAM REPORT - SCAN (12/02/2018 9:11 PM CDT) Narrative Performed At 2D Echo W/Doppler(CW/PW/Color) (12/02/2018 11:40 AM CDT) Ejection Fraction [facility] ECHO HEARTLAB [facility] Narrative Performed At Transthoracic Echocardiography Report (TTE) [facility] Demographics Patient TYLOR Arredondo Date of Study12/02/2018 Gender Male Visit [id number] Race [id number] Number Date of 1950 Referring PhysicianCECE AYALA Age 68 year(s) Eric Rajan [facility] Interpreting Tigist George MD Physician Procedure Type of Study TTE procedure:2DECHO W DOPPLER(CW/PW/COLOR) (Routine) Indications:Evaluation of Ventricular function post ACS. Clinical History HGB 12.6 HCT 38.7 % CVA, HTN, NSTEMI Height: 74 inches Weight: 83.01 kg (183 lbs) BSA: 2.09 m^2 BMI: 23.5 kg/m^2 HR: 42 bpm BP: 119/76 mmHg Summary Global LV systolic function normal . Normal LV wall thickness. Normal diastolic function. LA size is normal (16-34 ml/m2) . Unable to estimate peak systolic PA pressure; inadequate TR velocity signal. Previous Study No prior exam available for comparison. Signature Findings Technical Quality: Technically adequate exam. Left Ventricle Global LV systolic function normal . LV EF by Kirk's method of disk assessment is in creased (>70%) . No rmal LV wall thickness. Al l of the LV segments are hyperkinetic . No rmal diastolic function. Left AtriumLA size is normal (16-34 ml/m2) . Right VentricleThe right ventricular chamber size and systolic fu nction are within normal limits. Right Atrium RA size is normal. Aortic Valve Mild AoV cusp thickening. A trace of aortic regurgitation. Mitral Valve Mild MV leaflet thickening. Mi ld mitral regurgitation. Tricuspid ValveTV structure is normal. A trace of tricuspid regurgitation. Un able to estimate peak systolic PA pressure; in adequate TR velocity signal. Pulmonic Valve PV is partially visualized. Mi ld pulmonary regurgitation. AortaAortic root size (SInus of Valsalva diameter) is no rmal . PericardiumNo pericardial effusion is visualized. IVC/SVC/PA/PV/PleuralThe estimated RA pressure by IVC dynamics 5-10mmHg . Chambers/Structures Left Atrium LA Dimension: 4.43 cmLA Area: 19.48 cm^2 LA Volume: 65.45 ml LA Vol. Index: 31 ml/m^2 Left Ventricle LVIDd: 4.22 cm LVIDs: 2.63 cm LV Septum Diastolic: 1.11 cm LV PW Diastolic: 0.88 cmLV FS: 37.7 % LVEDV Kirk's:118.23 ml LVESV Kirk's:33.9 ml LVEDVI: 57 ml/m^2 LVEF Kirk's: 71.3 %LVESV I: 16 ml/m^2 Doppler/Quantitative Measurements Mitral Valve MV Peak E-Wave: 0.63 m/sMV Peak A-Wave: 0.34 m/s E/A Ratio: 1.83 Peak Gradient: 1.58 mmHg MV Marek. Peak: Aortic Valve Peak Velocity: 1.31 m/sMean Velocity: 0.77 m/s Peak Gradient: 6.87 mmHg Mean Gradient: 2.98 mmHg AV VTI: 25.26 cm AV DVI: 0.57 LVOT Peak Velocity: 0.74 m/s Peak Gradient: 2.21 mmHg Mean Velocity: 0.42 m/s Mean Gradient: 0.92 mmHg LVOT VTI: 14.3 cm Procedure Note Interface, External Ris In - 12/02/2018 1:42 PM CDT Transthoracic Echocardiography Report (TTE) Demographics Patient Name TYLOR JOHNSON Date of Study 12/02/2018 Gender Male Visit Number [id number] Race Room Number [id number] Number Date of 1950 Referring Physician CECE AYALA Age 68 year(s) Estate Planning Attorney Lizzy Rajan, [facility] Interpreting Tigist George MD Physician Procedure Type of Study TTE procedure:2DECHO W DOPPLER(CW/PW/COLOR) (Routine) Indications:Evaluation of Ventricular function post ACS. Clinical History HGB 12.6 HCT 38.7 % CVA, HTN, NSTEMI Height: 74 inches Weight: 83.01 kg (183 lbs) BSA: 2.09 m^2 BMI: 23.5 kg/m^2 HR: 42 bpm BP: 119/76 mmHg Summary Global LV systolic function normal . Normal LV wall thickness. Normal diastolic function. LA size is normal (16-34 ml/m2) . Unable to estimate peak systolic PA pressure; inadequate TR velocity signal. Previous Study No prior exam available for comparison. Signature Findings Technical Quality: Technically adequate exam. Left Ventricle Global LV systolic function normal . LVEF by Kirk's method of disk assessment is increased (>70%) . Normal LV wall thickness. All of the LV segments are hyperkinetic . Normal diastolic function. Left Atrium LA size is normal (16-34 ml/m2) . Right Ventricle The right ventricular chamber size and systolic function are within normal limits. Right Atrium RA size is normal. Aortic Valve Mild AoV cusp thickening. A trace of aortic regurgitation. Mitral Valve Mild MV leaflet thickening. Mild mitral regurgitation. Tricuspid Valve TV structure is normal. A trace of tricuspid regurgitation. Unable to estimate peak systolic PA pressure; inadequate TR velocity signal. Pulmonic Valve PV is partially visualized. Mild pulmonary regurgitation. Aorta Aortic root size (SInus of Valsalva diameter) is normal . Pericardium No pericardial effusion is visualized. IVC/SVC/PA/PV/Pleural The estimated RA pressure by IVC dynamics 5-10mmHg . Chambers/Structures Left Atrium LA Dimension: 4.43 cm LA Area: 19.48 cm^2 LA Volume: 65.45 ml LA Vol. Index: 31 ml/m^2 Left Ventricle LVIDd: 4.22 cm LVIDs: 2.63 cm LV Septum Diastolic: 1.11 cm LV PW Diastolic: 0.88 cm LV FS: 37.7 % LVEDV Kirk's:118.23 ml LVESV Kirk's:33.9 ml LVEDVI: 57 ml/m^2 LVEF Kirk's: 71.3 % LVESVI: 16 ml/m^2 Doppler/Quantitative Measurements Mitral Valve MV Peak E-Wave: 0.63 m/s MV Peak A-Wave: 0.34 m/s E/A Ratio: 1.83 Peak Gradient: 1.58 mmHg MV Marek. Peak: Aortic Valve Peak Velocity: 1.31 m/s Mean Velocity: 0.77 m/s Peak Gradient: 6.87 mmHg Mean Gradient: 2.98 mmHg AV VTI: 25.26 cm AV DVI: 0.57 LVOT Peak Velocity: 0.74 m/s Peak Gradient: 2.21 mmHg Mean Velocity: 0.42 m/s Mean Gradient: 0.92 mmHg LVOT VTI: 14.3 cm Performing Organization Address City/State/Zipcode Phone Number [facility] ECHO HEART[facility] B-type Natriuretic Factor (BNP) (12/02/2018 8:58 AM CDT) BNP 1,056 (H) 0 - 100 pg/mL [facility] Specimen Blood Performing Organization Address City/State/Zipcode Phone Number [facility] [address] [place] [address] CENTER Troponin I (12/02/2018 3:59 AM CDT) Troponin I 11.57 (HH) 0.00 - 0.03 ng/mL [facility] Specimen Blood Narrative Performed At Troponin I (TnI) levels must be interpreted [facility] in the context of the presenting symptoms and the clinical findings. Elevated TnI levels indicate myocardial damage, but are not specific for ischemic heart disease. Elevated TnI levels are seen in patients with other cardiac conditions (including myocarditis and congestive heart failure), and slight TnI elevations occur in patients with other conditions, including sepsis, renal failure, acidosis, acute neurological disease, and persistent tachyarrhythmia. Performing Organization Address [facility]conv Phone Number [address] [address] [place] Lipid panel (12/02/2018 3:59 AM CDT) Triglycerides 137Comment: Specimen slightly mg/dL [facility] Cholesterol 174Comment: Specimen slightly mg/dL [facility] HDL 34 mg/dL [facility] LDL Calculated 113 mg/dL [facility] Specimen Blood Narrative Performed At Triglyceride Reference Range: [facility] Low Risk <150 [id number] High Risk 200-499 Very High Risk>=500 Cholesterol Reference Range: Low Risk <200 [id number] High Risk>240 HDL Cholesterol Reference Range: Low Risk >=60 High Risk <40 LDL Cholesterol Reference Range: Optimal<100 Near Kewuzvj530-125 Pypsztazpc118-994 Lhqe861-600 Very High >=190 Performing Organization Address [facility] Centercode Phone Number [facility] [address] [place] [address] [place] Comprehensive metabolic panel (12/01/2018 5:56 PM CDT) Protein, Total 6.7 6.0 - 8.3 gm/dL [facility] Albumin 3.4 (L) 3.5 - 5.0 g/dL [facility] Alkaline Phosphatase 59 40 - 150 U/L [facility] Total Bilirubin 1.1 0.2 - 1.2 mg/dL [facility] Sodium 141 136 - 145 meq/L [facility] Potassium 3.6 3.5 - 5.1 meq/L [facility] Chloride 105 98 - 107 meq/L [facility] CO2 26 22 - 29 meq/L [facility] BUN 40 (H) 7 - 21 mg/dL [facility] Creatinine 2.18 (H) 0.57 - 1.25 mg/dL [facility] Glucose 92 70 - 105 mg/dL [facility] Calcium 9.3 8.4 - 10.2 mg/dL [facility] AST 16 5 - 34 U/L [facility] ALT 11 6 - 55 U/L [facility] EGFR 30Comment: ESTIMATED GFR mL/min/1.73 sq m IS NOT ACCURATE [facility] CREATININE CLEARANCE IN PREDICTING GLOMERULAR FILTRATION RATE. ESTIMATED GFR IS NOT APPLICABLE FOR DIALYSIS PATIENTS. Specimen Blood Performing Organization Address City/State/Zipcode Phone Number [facility] [address] [place] [phone] CENTER after 12/11/2017 Insurance Payer Benefit Plan / Group Subscriber ID Type Phone Address MEDICARE MEDICARE A B xxxxxxxxxx Medicare Advance Directives For more information, please contact:[address] [phone] Code Status Date Activated Date Inactivated Comments Full Code 12/05/2018 4:14 PM This code status was determined by: Patient Partial Code 12/01/2018 7:26 PM 12/05/2018 4:14 PM This code status was determined by: Patient Drug Protocol After Arrest Occurs? Yes Mechanical Ventilation with Intubation? No Bag/Mask? Yes Internal/External Pacemaker? Yes Transfer to Critical Care? Yes Chest Compressions? Yes Defibrillation/Cardioversion? Yes Full Code 12/01/2018 3:37 PM 12/01/2018 7:26 PM This code status was determined by: Patient
--- OUTSIDE RECORDS SUMMARY | 2018-12-12 18:16 | XMS REPORT ---
:1950 [facility] [address] [place] [address] Dr. Mario [address] [place] [id number] Care Team Providers Name Role Phone MIGUEL FRANKLIN EDWINA Unavailable Unavailable Problems This patient has no known problems. Allergies, Adverse Reactions, Alerts This patient has no known allergies or adverse reactions. Medications This patient has no known medications. Results Test Description Test Time Test Comments Text Results Atomic Results Result Comments URINALYSIS W/ REFLEX URINE CULTURE 2018-12-12 13:31:00 Test Item Value Reference Range Comments COLOR (BEAKER) (test iltq=935) Yellow CLARITY (BEAKER) (test tvib=814) Hazy SPECIFIC GRAVITY UA (BEAKER) (test qcfa=752) 1.008 1.001-1.035 PH UA (BEAKER) (test omix=620) 7.5 5.0-8.0 PROTEIN UA (BEAKER) (test zacr=124) 20 mg/dL Negative GLUCOSE UA (BEAKER) (test hpul=035) Negative Negative KETONES UA (BEAKER) (test qktq=247) Negative Negative BILIRUBIN UA (BEAKER) (test dcyn=909) Negative Negative BLOOD UA (BEAKER) (test jjja=466) Negative Negative NITRITE UA (BEAKER) (test pafb=278) Negative Negative LEUKOCYTE ESTERASE UA (BEAKER) (test jgho=598) Trace Negative UROBILINOGEN UA (BEAKER) (test lgnu=136) 4.0 mg/dL 0.2-1.0 RBC UA (BEAKER) (test jtfn=306) < /HPF WBC UA (BEAKER) (test czec=111) 3 /HPF SQUAMOUS EPITHELIAL (BEAKER) (test qzip=722) 1 /HPF SOURCE(BEAKER) (test tgbe=2175) [id number] 05:39:00 Test Item Value Reference Range Comments PHOSPHORUS (BEAKER) (test gknv=115) 2.8 mg/dL 2.3-4.7 CBC W/PLT COUNT & AUTO [id number] 05:18:00 Test Item Value Reference Range Comments WHITE BLOOD CELL COUNT (BEAKER) (test uagg=535) 13.3 K/ L 3.5-10.5 RED BLOOD CELL COUNT (BEAKER) (test zjda=109) 2.86 M/ L 4.63-6.08 HEMOGLOBIN (BEAKER) (test uubj=435) 9.1 GM/DL 13.7-17.5 HEMATOCRIT (BEAKER) (test kkvq=496) 27.5 % 40.1-51.0 MEAN CORPUSCULAR VOLUME (BEAKER) (test quwp=727) 96.2 fL 79.0-92.2 MEAN CORPUSCULAR HEMOGLOBIN (BEAKER) (test 31.8 pg 25.7-32.2 lgri=637) MEAN CORPUSCULAR HEMOGLOBIN CONC (BEAKER) (test 33.1 GM/DL 32.3-36.5 etmu=706) RED CELL DISTRIBUTION WIDTH (BEAKER) (test 15.1 % 11.6-14.4 atif=436) PLATELET COUNT (BEAKER) (test ksuy=141) 225 K/CU MM 150-450 MEAN PLATELET VOLUME (BEAKER) (test uznb=364) 11.5 fL 9.4-12.4 NUCLEATED RED BLOOD CELLS (BEAKER) (test 0 /100 WBC 0-0 wwfq=028) NEUTROPHILS RELATIVE PERCENT (BEAKER) (test 73 % phzu=073) LYMPHOCYTES RELATIVE PERCENT (BEAKER) (test 16 % cmge=564) MONOCYTES RELATIVE PERCENT (BEAKER) (test 6 % jket=097) EOSINOPHILS RELATIVE PERCENT (BEAKER) (test 3 % xvma=013) BASOPHILS RELATIVE PERCENT (BEAKER) (test 1 % tntq=966) NEUTROPHILS ABSOLUTE COUNT (BEAKER) (test 9.69 K/ L 1.78-5.38 gvsy=180) LYMPHOCYTES ABSOLUTE COUNT (BEAKER) (test 2.16 K/ L 1.32-3.57 sobp=521) MONOCYTES ABSOLUTE COUNT (BEAKER) (test 0.84 K/ L 0.30-0.82 knxc=407) EOSINOPHILS ABSOLUTE COUNT (BEAKER) (test 0.39 K/ L 0.04-0.54 uqut=271) BASOPHILS ABSOLUTE COUNT (BEAKER) (test 0.08 K/ L 0.01-0.08 rosj=180) IMMATURE GRANULOCYTES-RELATIVE PERCENT (BEAKER) 1 % 0-1 (test lkoo=9644) U/S, RENAL, [id number] 02:06:00Reason for exam:->ckdShould this be performed at the bedside?->NoFINAL REPORT Ultrasound of the Kidneys Clinical History: [...] to underdistention. Patient was unable to void. Impression:Limited exam.Echogenic kidneys in keeping with medical renal disease. No hydronephrosis.Small right renal cyst.Mild diffuse mural thickening of the urinary bladder may be due to underdistention however correlation with urinalysis is advised to exclude infection. Signed: Eladio Gómez MDRepcarondelet health Verified Date/Time: 12/12/2018 02:06:07 Reading Location: [facility] B1 C013Y CT Body Reading Room [id number] 05:23:00 Test Item Value Reference Range Comments PHOSPHORUS (BEAKER) (test xchp=483) 2.7 mg/dL 2.3-4.7 [id number] 05:23:00 Test Item Value Reference Range Comments MAGNESIUM (BEAKER) (test cyue=578) 2.1 mg/dL 1.6-2.6 BASIC METABOLIC [id number] 05:23:00 Test Item Value Reference Range Comments SODIUM (BEAKER) (test 140 meq/L 136-145 orth=540) POTASSIUM (BEAKER) (test 3.4 meq/L 3.5-5.1 auua=111) CHLORIDE (BEAKER) (test 111 meq/L 98-107 nsds=779) CO2 (BEAKER) (test 24 meq/L 22-29 otym=151) BLOOD UREA NITROGEN 20 mg/dL 7-21 (BEAKER) (test gbcs=396) CREATININE (BEAKER) (test 1.29 mg/dL 0.57-1.25 ofer=907) GLUCOSE RANDOM (BEAKER) 110 mg/dL 70-105 (test czag=085) CALCIUM (BEAKER) (test 8.3 mg/dL 8.4-10.2 rfcq=054) EGFR (BEAKER) (test 56 mL/min/1.73 sq m ESTIMATED GFR IS NOT zxiw=1046) ACCURATE CREATININE CLEARANCE IN PREDICTING GLOMERULAR FILTRATION RATE. ESTIMATED GFR IS NOT APPLICABLE FOR DIALYSIS PATIENTS. CBC W/PLT COUNT & AUTO [id number] 05:00:00 Test Item Value Reference Range Comments WHITE BLOOD CELL COUNT (BEAKER) (test lnsb=816) 11.2 K/ L 3.5-10.5 RED BLOOD CELL COUNT (BEAKER) (test spgr=602) 2.70 M/ L 4.63-6.08 HEMOGLOBIN (BEAKER) (test ltty=555) 8.6 GM/DL 13.7-17.5 HEMATOCRIT (BEAKER) (test mhtc=622) 26.0 % 40.1-51.0 MEAN CORPUSCULAR VOLUME (BEAKER) (test tgtd=360) 96.3 fL 79.0-92.2 MEAN CORPUSCULAR HEMOGLOBIN (BEAKER) (test 31.9 pg 25.7-32.2 brgg=260) MEAN CORPUSCULAR HEMOGLOBIN CONC (BEAKER) (test 33.1 GM/DL 32.3-36.5 csoo=596) RED CELL DISTRIBUTION WIDTH (BEAKER) (test 14.8 % 11.6-14.4 igpa=314) PLATELET COUNT (BEAKER) (test bnsf=127) 180 K/CU MM 150-450 MEAN PLATELET VOLUME (BEAKER) (test zzry=671) 12.3 fL 9.4-12.4 NUCLEATED RED BLOOD CELLS (BEAKER) (test 0 /100 WBC 0-0 uxkb=918) NEUTROPHILS RELATIVE PERCENT (BEAKER) (test 69 % yvcr=493) LYMPHOCYTES RELATIVE PERCENT (BEAKER) (test 15 % hjik=810) MONOCYTES RELATIVE PERCENT (BEAKER) (test 9 % czol=601) EOSINOPHILS RELATIVE PERCENT (BEAKER) (test 5 % yhna=482) BASOPHILS RELATIVE PERCENT (BEAKER) (test 0 % kojh=121) NEUTROPHILS ABSOLUTE COUNT (BEAKER) (test 7.74 K/ L 1.78-5.38 kufi=909) LYMPHOCYTES ABSOLUTE COUNT (BEAKER) (test 1.71 K/ L 1.32-3.57 vddd=866) MONOCYTES ABSOLUTE COUNT (BEAKER) (test 1.01 K/ L 0.30-0.82 cpau=543) EOSINOPHILS ABSOLUTE COUNT (BEAKER) (test 0.51 K/ L 0.04-0.54 tmwm=656) BASOPHILS ABSOLUTE COUNT (BEAKER) (test 0.05 K/ L 0.01-0.08 seho=175) IMMATURE GRANULOCYTES-RELATIVE PERCENT (BEAKER) 2 % 0-1 (test tuzi=5851) [id number] 05:42:00 Test Item Value Reference Range Comments PHOSPHORUS (BEAKER) (test fxhn=849) 2.9 mg/dL 2.3-4.7 [id number] 05:42:00 Test Item Value Reference Range Comments MAGNESIUM (BEAKER) (test eant=780) 2.0 mg/dL 1.6-2.6 BASIC METABOLIC [id number] 05:42:00 Test Item Value Reference Range Comments SODIUM (BEAKER) (test 139 meq/L 136-145 dpwj=911) POTASSIUM (BEAKER) (test 3.8 meq/L 3.5-5.1 dbli=778) CHLORIDE (BEAKER) (test 109 meq/L 98-107 vkma=670) CO2 (BEAKER) (test 24 meq/L 22-29 ogyr=896) BLOOD UREA NITROGEN 21 mg/dL 7-21 (BEAKER) (test gwxd=400) CREATININE (BEAKER) (test 1.35 mg/dL 0.57-1.25 ebyf=196) GLUCOSE RANDOM (BEAKER) 102 mg/dL 70-105 (test pjcl=728) CALCIUM (BEAKER) (test 8.6 mg/dL 8.4-10.2 cbrg=670) EGFR (BEAKER) (test 53 mL/min/1.73 sq m ESTIMATED GFR IS NOT zaii=2903) ACCURATE CREATININE CLEARANCE IN PREDICTING GLOMERULAR FILTRATION RATE. ESTIMATED GFR IS NOT APPLICABLE FOR DIALYSIS PATIENTS. CBC W/PLT COUNT & AUTO [id number] 05:18:00 Test Item Value Reference Range Comments WHITE BLOOD CELL COUNT (BEAKER) (test yqxo=433) 10.9 K/ L 3.5-10.5 RED BLOOD CELL COUNT (BEAKER) (test dqgz=292) 2.80 M/ L 4.63-6.08 HEMOGLOBIN (BEAKER) (test eyms=357) 8.8 GM/DL 13.7-17.5 HEMATOCRIT (BEAKER) (test ndyd=962) 27.1 % 40.1-51.0 MEAN CORPUSCULAR VOLUME (BEAKER) (test mldo=915) 96.8 fL 79.0-92.2 MEAN CORPUSCULAR HEMOGLOBIN (BEAKER) (test 31.4 pg 25.7-32.2 fiht=047) MEAN CORPUSCULAR HEMOGLOBIN CONC (BEAKER) (test 32.5 GM/DL 32.3-36.5 zfvs=683) RED CELL DISTRIBUTION WIDTH (BEAKER) (test 14.4 % 11.6-14.4 dasc=546) PLATELET COUNT (BEAKER) (test knnm=798) 171 K/CU MM 150-450 MEAN PLATELET VOLUME (BEAKER) (test hexb=068) 11.7 fL 9.4-12.4 NUCLEATED RED BLOOD CELLS (BEAKER) (test 0 /100 WBC 0-0 avcc=990) NEUTROPHILS RELATIVE PERCENT (BEAKER) (test 71 % qnge=005) LYMPHOCYTES RELATIVE PERCENT (BEAKER) (test 16 % tvds=682) MONOCYTES RELATIVE PERCENT (BEAKER) (test 8 % hckc=607) EOSINOPHILS RELATIVE PERCENT (BEAKER) (test 4 % qjir=800) BASOPHILS RELATIVE PERCENT (BEAKER) (test 0 % kezb=423) NEUTROPHILS ABSOLUTE COUNT (BEAKER) (test 7.66 K/ L 1.78-5.38 kmlw=034) LYMPHOCYTES ABSOLUTE COUNT (BEAKER) (test 1.78 K/ L 1.32-3.57 cflg=030) MONOCYTES ABSOLUTE COUNT (BEAKER) (test 0.83 K/ L 0.30-0.82 wrvz=818) EOSINOPHILS ABSOLUTE COUNT (BEAKER) (test 0.44 K/ L 0.04-0.54 lnyg=027) BASOPHILS ABSOLUTE COUNT (BEAKER) (test 0.04 K/ L 0.01-0.08 tyzj=995) IMMATURE GRANULOCYTES-RELATIVE PERCENT (BEAKER) 1 % 0-1 (test sokz=5953) RAD, CHEST, 1 VIEW, NON [id number] 10:12:00Reason for exam:->post operative cardiacShould this be performed at the bedside?->YesFINAL REPORT TECHNIQUE: Frontal chest radiograph dated 12/09/2018. CLINICAL HISTORY: Post op cardiac COMPARISON STUDY: Chest radiograph dated 2018 IMPRESSION:Linear atelectasis is seen in the left lung base. No pleural effusion or pneumothorax. Cardiomediastinal silhouette isstable in size. No pulmonary edema. Degenerative changes are seen in the spine. Midline sternotomy wires are intact and well aligned. Signed: Zachariah Camejo MDReport Verified Date/Time: 12/09/201810:12:03 Reading Location: [facility] Radiology Reading Room CBC W/PLT COUNT & AUTO [id number] 07:16:00 Test Item Value Reference Range Comments WHITE BLOOD CELL COUNT (BEAKER) (test ewcr=364) 9.7 K/ L 3.5-10.5 RED BLOOD CELL COUNT (BEAKER) (test znbq=142) 2.47 M/ L 4.63-6.08 HEMOGLOBIN (BEAKER) (test qsef=004) 7.8 GM/DL 13.7-17.5 HEMATOCRIT (BEAKER) (test itjj=663) 23.9 % 40.1-51.0 MEAN CORPUSCULAR VOLUME (BEAKER) (test vpxc=876) 96.8 fL 79.0-92.2 MEAN CORPUSCULAR HEMOGLOBIN (BEAKER) (test 31.6 pg 25.7-32.2 faov=302) MEAN CORPUSCULAR HEMOGLOBIN CONC (BEAKER) (test 32.6 GM/DL 32.3-36.5 eoee=969) RED CELL DISTRIBUTION WIDTH (BEAKER) (test 14.8 % 11.6-14.4 tncf=073) PLATELET COUNT (BEAKER) (test zkld=807) 131 K/CU MM 150-450 MEAN PLATELET VOLUME (BEAKER) (test qyay=972) 12.0 fL 9.4-12.4 NUCLEATED RED BLOOD CELLS (BEAKER) (test 1 /100 WBC 0-0 heme=011) NEUTROPHILS RELATIVE PERCENT (BEAKER) (test 72 % qbdd=510) LYMPHOCYTES RELATIVE PERCENT (BEAKER) (test 17 % fixx=984) MONOCYTES RELATIVE PERCENT (BEAKER) (test 8 % twcy=869) EOSINOPHILS RELATIVE PERCENT (BEAKER) (test 2 % lljk=357) BASOPHILS RELATIVE PERCENT (BEAKER) (test 0 % ctzf=040) NEUTROPHILS ABSOLUTE COUNT (BEAKER) (test 6.97 K/ L 1.78-5.38 kbdy=938) LYMPHOCYTES ABSOLUTE COUNT (BEAKER) (test 1.67 K/ L 1.32-3.57 lglj=468) MONOCYTES ABSOLUTE COUNT (BEAKER) (test 0.75 K/ L 0.30-0.82 bqvi=129) EOSINOPHILS ABSOLUTE COUNT (BEAKER) (test 0.19 K/ L 0.04-0.54 ntyp=209) BASOPHILS ABSOLUTE COUNT (BEAKER) (test 0.02 K/ L 0.01-0.08 nrpj=218) IMMATURE GRANULOCYTES-RELATIVE PERCENT (BEAKER) 1 % 0-1 (test zxop=2641) [id number] 07:10:00 Test Item Value Reference Range Comments PHOSPHORUS (BEAKER) (test jsyw=034) 2.5 mg/dL 2.3-4.7 [id number] 07:10:00 Test Item Value Reference Range Comments MAGNESIUM (BEAKER) (test paeg=242) 2.1 mg/dL 1.6-2.6 BASIC METABOLIC [id number] 07:10:00 Test Item Value Reference Range Comments SODIUM (BEAKER) (test 140 meq/L 136-145 ladb=174) POTASSIUM (BEAKER) (test 3.6 meq/L 3.5-5.1 jsrm=357) CHLORIDE (BEAKER) (test 110 meq/L 98-107 hgxx=804) CO2 (BEAKER) (test 25 meq/L 22-29 auvd=052) BLOOD UREA NITROGEN 30 mg/dL 7-21 (BEAKER) (test fbgt=146) CREATININE (BEAKER) (test 1.47 mg/dL 0.57-1.25 wzhp=651) GLUCOSE RANDOM (BEAKER) 101 mg/dL 70-105 (test enmc=749) CALCIUM (BEAKER) (test 8.4 mg/dL 8.4-10.2 hakl=892) EGFR (BEAKER) (test 48 mL/min/1.73 sq m ESTIMATED GFR IS NOT ubur=9820) ACCURATE CREATININE CLEARANCE IN PREDICTING GLOMERULAR FILTRATION RATE. ESTIMATED GFR IS NOT APPLICABLE FOR DIALYSIS PATIENTS. HEMOGLOBIN AND [id number] 19:10:00 Test Item Value Reference Range Comments HEMOGLOBIN (BEAKER) (test wkba=063) 8.1 GM/DL 13.7-17.5 HEMATOCRIT (BEAKER) (test ihgz=081) 24.8 % 40.1-51.0 RAD, CHEST, 1 VIEW, NON [id number] 07:39:00Reason for exam:->post operative cardiacShould this be performed at the bedside?->YesFINAL REPORT Portable chest. CLINICAL HISTORY: post operative cardiac. COMPARISON STUDY: Chest x-ray from yesterday. FINDINGS: The cardiac silhouette is enlarged. Sternotomy wires are seen. The pulmonary parenchyma demonstrates mild reticular markings with atelectatic changes. The right jugular line has been removed. The chest tubes remain. No pneumothorax is seen. Degenerativechanges are noted. IMPRESSION: Removal of right jugular line. No other significant change. Signed: Rudolph Cano MDReport Verified Date/Time: 12/08/2018 07:39:23 Reading Location: [facility] Radiology Reading Room [id number] 05:54:00 Test Item Value Reference Range Comments PHOSPHORUS (BEAKER) (test rqbl=987) 2.7 mg/dL 2.3-4.7 BASIC METABOLIC [id number] 05:54:00 Test Item Value Reference Range Comments SODIUM (BEAKER) (test 140 meq/L 136-145 tbla=390) POTASSIUM (BEAKER) (test 4.0 meq/L 3.5-5.1 jdzg=224) CHLORIDE (BEAKER) (test 110 meq/L 98-107 jogr=953) CO2 (BEAKER) (test 24 meq/L 22-29 wukx=230) BLOOD UREA NITROGEN 38 mg/dL 7-21 (BEAKER) (test cvmw=067) CREATININE (BEAKER) (test 1.70 mg/dL 0.57-1.25 zphg=177) GLUCOSE RANDOM (BEAKER) 116 mg/dL 70-105 (test ljfm=473) CALCIUM (BEAKER) (test 8.8 mg/dL 8.4-10.2 ucog=764) EGFR (BEAKER) (test 40 mL/min/1.73 sq m ESTIMATED GFR IS NOT qsfr=7178) ACCURATE CREATININE CLEARANCE IN PREDICTING GLOMERULAR FILTRATION RATE. ESTIMATED GFR IS NOT APPLICABLE FOR DIALYSIS PATIENTS. CBC W/PLT COUNT & AUTO [id number] 04:57:00 Test Item Value Reference Range Comments WHITE BLOOD CELL COUNT (BEAKER) (test mvqh=063) 12.8 K/ L 3.5-10.5 RED BLOOD CELL COUNT (BEAKER) (test iokg=045) 2.20 M/ L 4.63-6.08 HEMOGLOBIN (BEAKER) (test nyyq=830) 7.0 GM/DL 13.7-17.5 HEMATOCRIT (BEAKER) (test rwqh=954) 21.4 % 40.1-51.0 MEAN CORPUSCULAR VOLUME (BEAKER) (test veca=997) 97.3 fL 79.0-92.2 MEAN CORPUSCULAR HEMOGLOBIN (BEAKER) (test 31.8 pg 25.7-32.2 ujaj=826) MEAN CORPUSCULAR HEMOGLOBIN CONC (BEAKER) (test 32.7 GM/DL 32.3-36.5 ihkw=200) RED CELL DISTRIBUTION WIDTH (BEAKER) (test 15.3 % 11.6-14.4 pqfa=448) PLATELET COUNT (BEAKER) (test sfph=810) 131 K/CU MM 150-450 MEAN PLATELET VOLUME (BEAKER) (test nrxo=174) 12.0 fL 9.4-12.4 NUCLEATED RED BLOOD CELLS (BEAKER) (test 1 /100 WBC 0-0 jgks=391) NEUTROPHILS RELATIVE PERCENT (BEAKER) (test 79 % cbkh=272) LYMPHOCYTES RELATIVE PERCENT (BEAKER) (test 12 % maoc=935) MONOCYTES RELATIVE PERCENT (BEAKER) (test 9 % kmyu=395) EOSINOPHILS RELATIVE PERCENT (BEAKER) (test 0 % pgeu=593) BASOPHILS RELATIVE PERCENT (BEAKER) (test 0 % ikhk=481) NEUTROPHILS ABSOLUTE COUNT (BEAKER) (test 10.09 K/ L 1.78-5.38 lubt=445) LYMPHOCYTES ABSOLUTE COUNT (BEAKER) (test 1.48 K/ L 1.32-3.57 qgod=788) MONOCYTES ABSOLUTE COUNT (BEAKER) (test 1.10 K/ L 0.30-0.82 pgrx=820) EOSINOPHILS ABSOLUTE COUNT (BEAKER) (test 0.01 K/ L 0.04-0.54 ufbf=830) BASOPHILS ABSOLUTE COUNT (BEAKER) (test 0.01 K/ L 0.01-0.08 mcge=800) IMMATURE GRANULOCYTES-RELATIVE PERCENT (BEAKER) 1 % 0-1 (test wsoy=6656) BASIC METABOLIC [id number] 12:27:00 Test Item Value Reference Range Comments SODIUM (BEAKER) (test 141 meq/L 136-145 jthq=720) POTASSIUM (BEAKER) (test 4.2 meq/L 3.5-5.1 ynkv=106) CHLORIDE (BEAKER) (test 110 meq/L 98-107 hszn=125) CO2 (BEAKER) (test 25 meq/L 22-29 glez=769) BLOOD UREA NITROGEN 34 mg/dL 7-21 (BEAKER) (test nsyu=138) CREATININE (BEAKER) (test 1.77 mg/dL 0.57-1.25 gmyq=969) GLUCOSE RANDOM (BEAKER) 128 mg/dL 70-105 (test kwwy=567) CALCIUM (BEAKER) (test 9.1 mg/dL 8.4-10.2 thch=337) EGFR (BEAKER) (test 39 mL/min/1.73 sq m ESTIMATED GFR IS NOT suly=8052) ACCURATE CREATININE CLEARANCE IN PREDICTING GLOMERULAR FILTRATION RATE. ESTIMATED GFR IS NOT APPLICABLE FOR DIALYSIS PATIENTS. HEMOGLOBIN AND [id number] 12:09:00 Test Item Value Reference Range Comments HEMOGLOBIN (BEAKER) (test vqgz=555) 7.3 GM/DL 13.7-17.5 HEMATOCRIT (BEAKER) (test jifv=521) 23.0 % 40.1-51.0 [id number] 07:19:00 Test Item Value Reference Range Comments PHOSPHORUS (BEAKER) (test viju=147) 3.0 mg/dL 2.3-4.7 [id number] 07:19:00 Test Item Value Reference Range Comments MAGNESIUM (BEAKER) (test digo=655) 2.4 mg/dL 1.6-2.6 BASIC METABOLIC [id number] 07:19:00 Test Item Value Reference Range Comments SODIUM (BEAKER) (test 141 meq/L 136-145 sfue=788) POTASSIUM (BEAKER) (test 4.3 meq/L 3.5-5.1 paxe=668) CHLORIDE (BEAKER) (test 111 meq/L 98-107 djdj=896) CO2 (BEAKER) (test 24 meq/L 22-29 olvm=643) BLOOD UREA NITROGEN 33 mg/dL 7-21 (BEAKER) (test mpvh=881) CREATININE (BEAKER) (test 1.75 mg/dL 0.57-1.25 xeyo=459) GLUCOSE RANDOM (BEAKER) 119 mg/dL 70-105 (test lcib=353) CALCIUM (BEAKER) (test 8.7 mg/dL 8.4-10.2 sqoj=055) EGFR (BEAKER) (test 39 mL/min/1.73 sq m ESTIMATED GFR IS NOT ucbe=4838) ACCURATE CREATININE CLEARANCE IN PREDICTING GLOMERULAR FILTRATION RATE. ESTIMATED GFR IS NOT APPLICABLE FOR DIALYSIS PATIENTS. CBC (HEMOGRAM ONLY)2018-12-07 05:27:00 Test Item Value Reference Range Comments WHITE BLOOD CELL COUNT (BEAKER) (test aeyh=837) 14.5 K/ L 3.5-10.5 RED BLOOD CELL COUNT (BEAKER) (test wakh=339) 2.29 M/ L 4.63-6.08 HEMOGLOBIN (BEAKER) (test ncqg=352) 7.3 GM/DL 13.7-17.5 HEMATOCRIT (BEAKER) (test ovte=276) 22.2 % 40.1-51.0 MEAN CORPUSCULAR VOLUME (BEAKER) (test dhcu=039) 96.9 fL 79.0-92.2 MEAN CORPUSCULAR HEMOGLOBIN (BEAKER) (test 31.9 pg 25.7-32.2 jvbz=585) MEAN CORPUSCULAR HEMOGLOBIN CONC (BEAKER) (test 32.9 GM/DL 32.3-36.5 pwpb=470) RED CELL DISTRIBUTION WIDTH (BEAKER) (test 15.2 % 11.6-14.4 zxaq=014) PLATELET COUNT (BEAKER) (test cjvd=646) 159 K/CU MM 150-450 MEAN PLATELET VOLUME (BEAKER) (test hmed=138) 11.9 fL 9.4-12.4 NUCLEATED RED BLOOD CELLS (BEAKER) (test 0 /100 WBC 0-0 sxap=101) RAD, CHEST, 1 VIEW, NON [id number] 05:15:00Reason for exam:->post operative cardiacShould this be performed at the bedside?->YesFINAL REPORT RAD, CHEST, 1 VIEW, NON DEPT INDICATION: post operative cardiac COMPARISON: Prior day's exam FINDINGS: Portable frontal view of the chest. IMPRESSION: Support Lines: Stable. Lungs and pleura: Unchanged airspace and pleural opacities. No pneumothorax.Heart and mediastinum: Stable contours. Stable surgical changes.Additional findings: None. Signed: Lida Henriquez Verified Date/Time: 12/07/2018 05:15:09 Reading Location: [address] Transitional Reading Room BASIC METABOLIC [id number] 00:00:00 Test Item Value Reference Range Comments SODIUM (BEAKER) (test 141 meq/L 136-145 ddxw=014) POTASSIUM (BEAKER) (test 4.4 meq/L 3.5-5.1 qljk=347) CHLORIDE (BEAKER) (test 110 meq/L 98-107 peeh=964) CO2 (BEAKER) (test 22 meq/L 22-29 sjbr=254) BLOOD UREA NITROGEN 32 mg/dL 7-21 (BEAKER) (test egtz=320) CREATININE (BEAKER) (test 1.78 mg/dL 0.57-1.25 xnam=693) GLUCOSE RANDOM (BEAKER) 153 mg/dL 70-105 (test corg=758) CALCIUM (BEAKER) (test 8.9 mg/dL 8.4-10.2 cljm=371) EGFR (BEAKER) (test 38 mL/min/1.73 sq m ESTIMATED GFR IS NOT qkmg=4879) ACCURATE CREATININE CLEARANCE IN PREDICTING GLOMERULAR FILTRATION RATE. ESTIMATED GFR IS NOT APPLICABLE FOR DIALYSIS PATIENTS. HEMOGLOBIN AND [id number] 22:57:00 Test Item Value Reference Range Comments HEMOGLOBIN (BEAKER) (test bvmm=211) 6.9 GM/DL 13.7-17.5 HEMATOCRIT (BEAKER) (test bthq=990) 21.1 % 40.1-51.0 BASIC METABOLIC [id number] 16:15:00 Test Item Value Reference Range Comments SODIUM (BEAKER) (test 140 meq/L 136-145 htqe=165) POTASSIUM (BEAKER) (test 5.0 meq/L 3.5-5.1 Specimen slightly hqfo=836) hemolyzed CHLORIDE (BEAKER) (test 110 meq/L 98-107 zhhn=303) CO2 (BEAKER) (test 22 meq/L 22-29 lmsc=394) BLOOD UREA NITROGEN 30 mg/dL 7-21 (BEAKER) (test fgnr=815) CREATININE (BEAKER) (test 1.77 mg/dL 0.57-1.25 Specimen slightly hpnd=386) hemolyzed GLUCOSE RANDOM (BEAKER) 146 mg/dL 70-105 (test tfmt=819) CALCIUM (BEAKER) (test 8.8 mg/dL 8.4-10.2 zftf=866) EGFR (BEAKER) (test 39 mL/min/1.73 sq m ESTIMATED GFR IS NOT opky=5120) ACCURATE CREATININE CLEARANCE IN PREDICTING GLOMERULAR FILTRATION RATE. ESTIMATED GFR IS NOT APPLICABLE FOR DIALYSIS PATIENTS. HEMOGLOBIN AND [id number] 15:58:00 Test Item Value Reference Range Comments HEMOGLOBIN (BEAKER) (test oifr=776) 7.2 GM/DL 13.7-17.5 HEMATOCRIT (BEAKER) (test fyzm=791) 22.0 % 40.1-51.0 PROTEIN ELECTROPHORESIS, [id number] 11:34:00 Test Item Value Reference Range Comments ALBUMIN FRACTION (BEAKER) 3.1 g/dL 3.5-5.5 (test maoz=281) ALPHA 1 FRACTION (BEAKER) 0.2 g/dL 0.2-0.4 (test irlh=454) ALPHA 2 FRACTION (BEAKER) 0.8 g/dL 0.5-0.9 (test xexr=785) BETA FRACTION (BEAKER) (test 0.8 g/dL 0.6-1.1 ehsj=795) GAMMA GLOBULIN FRACTION 1.1 g/dL 0.7-1.7 (BEAKER) (test xlzn=758) INTERPRETATION-119 (BEAKER) All fractions present in (test iksz=3443) expected distribution with slight decrease in serum albumin. No monoclonal bands detected. [id number] Terrie Rubio MD (BEAKER) (test pwyw=3257) (electronic signature) PROTEIN TOTAL SERUM, SPEP 6.1 gm/dL 6.0-8.3 (BEAKER) (test fwgn=1860) [id number] 10:57:00 Test Item Value Reference Range Comments POTASSIUM (BEAKER) (test 5.4 meq/L 3.5-5.1 Specimen slightly hemolyzed gkzw=201) Every 8 hours PRN for Creatinine greater than or equal to 2 mg/dL.CBC W/PLT COUNT & AUTO [id number] 10:43:00 Test Item Value Reference Range Comments WHITE BLOOD CELL COUNT (BEAKER) (test vsvz=826) 11.6 K/ L 3.5-10.5 RED BLOOD CELL COUNT (BEAKER) (test pegt=908) 2.33 M/ L 4.63-6.08 HEMOGLOBIN (BEAKER) (test tngx=328) 7.5 GM/DL 13.7-17.5 HEMATOCRIT (BEAKER) (test oqxf=530) 23.2 % 40.1-51.0 MEAN CORPUSCULAR VOLUME (BEAKER) (test sfkj=558) 99.6 fL 79.0-92.2 MEAN CORPUSCULAR HEMOGLOBIN (BEAKER) (test 32.2 pg 25.7-32.2 zuda=120) MEAN CORPUSCULAR HEMOGLOBIN CONC (BEAKER) (test 32.3 GM/DL 32.3-36.5 sept=825) RED CELL DISTRIBUTION WIDTH (BEAKER) (test 13.7 % 11.6-14.4 bpqr=214) PLATELET COUNT (BEAKER) (test pndx=965) 203 K/CU MM 150-450 MEAN PLATELET VOLUME (BEAKER) (test huym=884) 11.8 fL 9.4-12.4 NUCLEATED RED BLOOD CELLS (BEAKER) (test 0 /100 WBC 0-0 hxeg=030) NEUTROPHILS RELATIVE PERCENT (BEAKER) (test 85 % kpmh=922) LYMPHOCYTES RELATIVE PERCENT (BEAKER) (test 8 % izlw=760) MONOCYTES RELATIVE PERCENT (BEAKER) (test 6 % sneg=970) EOSINOPHILS RELATIVE PERCENT (BEAKER) (test 0 % ffth=845) BASOPHILS RELATIVE PERCENT (BEAKER) (test 0 % yvyu=785) NEUTROPHILS ABSOLUTE COUNT (BEAKER) (test 9.92 K/ L 1.78-5.38 emmw=614) LYMPHOCYTES ABSOLUTE COUNT (BEAKER) (test 0.95 K/ L 1.32-3.57 vycy=942) MONOCYTES ABSOLUTE COUNT (BEAKER) (test 0.68 K/ L 0.30-0.82 gjju=519) EOSINOPHILS ABSOLUTE COUNT (BEAKER) (test 0.00 K/ L 0.04-0.54 ltkw=915) BASOPHILS ABSOLUTE COUNT (BEAKER) (test 0.01 K/ L 0.01-0.08 gnvr=554) IMMATURE GRANULOCYTES-RELATIVE PERCENT (BEAKER) 1 % 0-1 (test esxo=0523) RAD, CHEST, 1 VIEW, NON [id number] 08:09:00Reason for exam:->post operative cardiacShould this be performed at the bedside?->YesFINAL REPORT AP view of the chest dated 12/06/2018 COMPARISON: 2018 CLINICAL INFORMATION: post operative cardiac Comment: Heart is normal in size. Pulmonary vasculature is unremarkable. Subsegmental atelectasis is seen in both lung bases. The rest of the lungs are clear. No pulmonary infiltrate or pleural effusion is present. Mediastinal tube, bilateral chest tube, and right IJ central venous catheter remain in place. Impression: No interval change. Signed: Tylor Griffitheport Verified Date/Time: 12/06/2018 08:09:04 Reading Location: [facility] [id number] Ortho Consult ReadingRoom POTASSIUM-STAT [id number] 06:31:00 Test Item Value Reference Range Comments POTASSIUM (BEAKER) (test jxqf=332) 4.9 meq/L 3.6-5.5 BLOOD GAS, [id number] 06:20:00 Test Item Value Reference Range Comments PH ARTERIAL (BEAKER) (test yktg=525) 7.40 7.35-7.45 PCO2 ARTERIAL (BEAKER) (test lkoi=425) 37 mmHg 35-45 PO2 ARTERIAL (BEAKER) (test wdhk=175) 78 mmHg 80-90 O2 SATURATION ARTERIAL (BEAKER) (test mngh=645) 95.7 % 96.0-97.0 HCO3 ARTERIAL (BEAKER) (test jghb=390) 22 mmol/L 21-29 BASE EXCESS ARTERIAL (BEAKER) (test itgw=587) -2.4 mmol/L -2.0-3.0 PATIENT TEMPERATURE (BEAKER) (test sdvz=8603) 36.8 C FIO2 (BEAKER) (test gllm=3984) 21.0 % [id number] 06:11:00 Test Item Value Reference Range Comments PHOSPHORUS (BEAKER) (test vkan=563) 4.3 mg/dL 2.3-4.7 [id number] 06:11:00 Test Item Value Reference Range Comments MAGNESIUM (BEAKER) (test caid=642) 2.3 mg/dL 1.6-2.6 BASIC METABOLIC [id number] 06:11:00 Test Item Value Reference Range Comments SODIUM (BEAKER) (test 140 meq/L 136-145 jely=601) POTASSIUM (BEAKER) (test 5.6 meq/L 3.5-5.1 xtvi=124) CHLORIDE (BEAKER) (test 111 meq/L 98-107 nlam=450) CO2 (BEAKER) (test 21 meq/L 22-29 xteq=277) BLOOD UREA NITROGEN 25 mg/dL 7-21 (BEAKER) (test toce=424) CREATININE (BEAKER) (test 1.74 mg/dL 0.57-1.25 gdkf=785) GLUCOSE RANDOM (BEAKER) 171 mg/dL 70-105 (test phaf=774) CALCIUM (BEAKER) (test 8.8 mg/dL 8.4-10.2 zqrt=746) EGFR (BEAKER) (test 39 mL/min/1.73 sq m ESTIMATED GFR IS NOT wsiw=8992) ACCURATE CREATININE CLEARANCE IN PREDICTING GLOMERULAR FILTRATION RATE. ESTIMATED GFR IS NOT APPLICABLE FOR DIALYSIS PATIENTS. CBC (HEMOGRAM ONLY)2018-12-06 05:01:00 Test Item Value Reference Range Comments WHITE BLOOD CELL COUNT (BEAKER) (test imes=665) 11.6 K/ L 3.5-10.5 RED BLOOD CELL COUNT (BEAKER) (test slbi=436) 2.45 M/ L 4.63-6.08 HEMOGLOBIN (BEAKER) (test wrpk=041) 7.7 GM/DL 13.7-17.5 HEMATOCRIT (BEAKER) (test xtcu=192) 24.5 % 40.1-51.0 MEAN CORPUSCULAR VOLUME (BEAKER) (test miha=717) 100.0 fL 79.0-92.2 MEAN CORPUSCULAR HEMOGLOBIN (BEAKER) (test 31.4 pg 25.7-32.2 bmcu=814) MEAN CORPUSCULAR HEMOGLOBIN CONC (BEAKER) (test 31.4 GM/DL 32.3-36.5 rqzp=335) RED CELL DISTRIBUTION WIDTH (BEAKER) (test 13.7 % 11.6-14.4 xtdz=559) PLATELET COUNT (BEAKER) (test yorv=757) 203 K/CU MM 150-450 MEAN PLATELET VOLUME (BEAKER) (test ojoq=030) 11.2 fL 9.4-12.4 NUCLEATED RED BLOOD CELLS (BEAKER) (test 0 /100 WBC 0-0 hooz=356) PLATELET [id number] 04:57:00 Test Item Value Reference Range Comments PLATELET COUNT (BEAKER) (test zxeq=090) 203 K/CU MM 150-450 RAD, CHEST, 1 VIEW, NON [id number] 00:32:00Reason for exam:->chest tubesFINAL REPORT EXAMINATION: AP PORTABLE CHEST RADIOGRAPH CLINICAL INDICATION: Chest tubes IMPRESSION: Compared with 2018. 1813 hours. The endotracheal and nasogastric tubes have been removed. Support tube and catheter positions are otherwise unchanged. Curvilinear and streaky opacities are noted in both lung bases, increased from previous. Atelectasis favored given the interval extubation and loss of lung volume. Mild superimposed pulmonary edema cannot be excluded. Heart is enlarged but similar to previous allowing for differences in technique and the mild loss of lung volume. No evidence of a significant pneumothorax. Signed: Osmel Mccann MDReport Verified Date/Time: 12/06/2018 00:32:25 Reading Location: [address] Reading Room Electronically signedby: OSMEL MCCANN M.D. on 12/06/2018 12:32 [id number] 23:36:00 Test Item Value Reference Range Comments PROTIME (BEAKER) (test sxuy=391) 16.6 seconds 11.7-14.7 INR (BEAKER) (test cvpl=132) 1.3 <=5.9 PARTIAL THROMBOPLASTIN TIME (BEAKER) (test 32.4 seconds 22.5-36.0 vhbw=300) RECOMMENDED COUMADIN/WARFARIN INR THERAPY RANGESSTANDARD DOSE: 2.0 - 3.0 Includes: PROPHYLAXIS forvenous thrombosis, systemic embolization; TREATMENT for venous thrombosis and/or pulmonary embolus.HIGH RISK: Target INR is 2.5-3.5 for patients with mechanical heart valves.[id number] 23:35:00 Test Item Value Reference Range Comments FIBRINOGEN LEVEL (BEAKER) (test upwg=094) 340 mg/dl 225-434 CBC W/PLT COUNT & AUTO [id number] 23:15:00 Test Item Value Reference Range Comments WHITE BLOOD CELL COUNT (BEAKER) (test xdky=378) 11.8 K/ L 3.5-10.5 RED BLOOD CELL COUNT (BEAKER) (test lsot=165) 2.69 M/ L 4.63-6.08 HEMOGLOBIN (BEAKER) (test jwrz=321) 8.6 GM/DL 13.7-17.5 HEMATOCRIT (BEAKER) (test unqf=105) 26.4 % 40.1-51.0 MEAN CORPUSCULAR VOLUME (BEAKER) (test dcfw=087) 98.1 fL 79.0-92.2 MEAN CORPUSCULAR HEMOGLOBIN (BEAKER) (test 32.0 pg 25.7-32.2 nlix=338) MEAN CORPUSCULAR HEMOGLOBIN CONC (BEAKER) (test 32.6 GM/DL 32.3-36.5 ovxe=311) RED CELL DISTRIBUTION WIDTH (BEAKER) (test 13.4 % 11.6-14.4 geww=842) PLATELET COUNT (BEAKER) (test pben=948) 160 K/CU MM 150-450 MEAN PLATELET VOLUME (BEAKER) (test jkgw=201) 11.1 fL 9.4-12.4 NUCLEATED RED BLOOD CELLS (BEAKER) (test 0 /100 WBC 0-0 mvsq=802) NEUTROPHILS RELATIVE PERCENT (BEAKER) (test 87 % lklj=734) LYMPHOCYTES RELATIVE PERCENT (BEAKER) (test 5 % okwk=163) MONOCYTES RELATIVE PERCENT (BEAKER) (test 6 % lgws=800) EOSINOPHILS RELATIVE PERCENT (BEAKER) (test 0 % auxv=200) BASOPHILS RELATIVE PERCENT (BEAKER) (test 0 % tury=074) NEUTROPHILS ABSOLUTE COUNT (BEAKER) (test 10.30 K/ L 1.78-5.38 xszn=333) LYMPHOCYTES ABSOLUTE COUNT (BEAKER) (test 0.64 K/ L 1.32-3.57 vxnd=292) MONOCYTES ABSOLUTE COUNT (BEAKER) (test 0.75 K/ L 0.30-0.82 ncba=602) EOSINOPHILS ABSOLUTE COUNT (BEAKER) (test 0.00 K/ L 0.04-0.54 qihv=965) BASOPHILS ABSOLUTE COUNT (BEAKER) (test 0.03 K/ L 0.01-0.08 wwjb=599) IMMATURE GRANULOCYTES-RELATIVE PERCENT (BEAKER) 1 % 0-1 (test zlnj=4787) BLOOD GAS, [id number] 23:13:00 Test Item Value Reference Range Comments PH ARTERIAL (BEAKER) (test siud=957) 7.38 7.35-7.45 PCO2 ARTERIAL (BEAKER) (test hvth=155) 37 mmHg 35-45 PO2 ARTERIAL (BEAKER) (test mfex=002) 165 mmHg 80-90 O2 SATURATION ARTERIAL (BEAKER) (test burc=790) 99.1 % 96.0-97.0 HCO3 ARTERIAL (BEAKER) (test tnio=430) 21 mmol/L 21-29 BASE EXCESS ARTERIAL (BEAKER) (test lcma=809) -3.2 mmol/L -2.0-3.0 PATIENT TEMPERATURE (BEAKER) (test ypcl=8679) 37.2 C FIO2 (BEAKER) (test cpzc=3071) 36.0 % GLUCOSE-STAT [id number] 23:13:00 Test Item Value Reference Range Comments GLUCOSE RANDOM (BEAKER) (test thxb=737) 172 mg/dL 70-110 HGB/HCT (H&H) - STAT [id number] 23:13:00 Test Item Value Reference Range Comments HEMOGLOBIN (BEAKER) (test htkp=436) 9.1 g/dL 13.0-16.8 HEMATOCRIT (BEAKER) (test lxor=041) 27.0 % 40.0-50.0 SODIUM NA-STAT [id number] 23:09:00 Test Item Value Reference Range Comments SODIUM (BEAKER) (test ehrm=055) 136 meq/L 135-148 POTASSIUM-STAT [id number] 23:09:00 Test Item Value Reference Range Comments POTASSIUM (BEAKER) (test enwh=217) 5.0 meq/L 3.6-5.5 RAD, CHEST, 1 VIEW, NON [id number] 22:57:00while patient is intubated or has chest tubes.Reason for exam:->Status post CV SurgeryShould thisbe performed at the bedside?->YesFINAL REPORT AP view of the chest dated 12/05/2018 COMPARISON: 12/04/2018 CLINICAL INFORMATION: Status post CV Surgery Comment: Since prior examination, there is interval sternotomy. Endotracheal tube, mediastinal tube, nasogastric tube, bilateral chest tube, and right IJ central venous catheter are present. Heart is normal in size. Pulmonary vasculature is unremarkable. Subsegmental atelectasis is seen in both lower lobes. The rest of the lungs are clear. No pulmonary infiltrate or pleural effusion is present. Impression: Satisfactory postoperative chest. Signed: Tylor Griffitheport Verified Date/Time: 2018 22:57:32 Reading Location: [facility] B1 [id number] Consult Reading Room [id number] 22:51:00 Test Item Value Reference Range Comments ACTIVATED CLOTTING TIME 120 sec TESTED AT [place] [address] [place] (BEAKER) (test uxro=307) [place] [address] [id number] 22:51:00 Test Item Value Reference Range Comments ACTIVATED CLOTTING TIME 521 sec TESTED AT [place] [address] [place] (BEAKER) (test dpgk=556) [place] [address] [id number] 22:51:00 Test Item Value Reference Range Comments ACTIVATED CLOTTING TIME 527 sec TESTED AT [place] [address] [place] (BEAKER) (test snhv=394) [place] [address] [id number] 22:51:00 Test Item Value Reference Range Comments ACTIVATED CLOTTING TIME 483 sec TESTED AT [place] [address] [place] (BEAKER) (test dwbo=346) [place] [address] [id number] 22:51:00 Test Item Value Reference Range Comments ACTIVATED CLOTTING TIME 483 sec TESTED AT [place] [address] [place] (BEAKER) (test sbid=694) [place] [address] [id number] 22:51:00 Test Item Value Reference Range Comments ACTIVATED CLOTTING TIME 698 sec TESTED AT [place] [address] [place] (BEAKER) (test jsmu=903) [place] [address] [id number] 22:51:00 Test Item Value Reference Range Comments ACTIVATED CLOTTING TIME 439 sec TESTED AT [place] [address] [place] (BEAKER) (test ufak=866) [place] [address] BLOOD GAS, [id number] 21:49:00 Test Item Value Reference Range Comments PH ARTERIAL (BEAKER) (test aahe=699) 7.41 7.35-7.45 PCO2 ARTERIAL (BEAKER) (test yzat=453) 36 mmHg 35-45 PO2 ARTERIAL (BEAKER) (test pbbe=638) 157 mmHg 80-90 O2 SATURATION ARTERIAL (BEAKER) (test euzz=782) 99.1 % 96.0-97.0 HCO3 ARTERIAL (BEAKER) (test meaa=740) 22 mmol/L 21-29 BASE EXCESS ARTERIAL (BEAKER) (test runj=649) -2.1 mmol/L -2.0-3.0 PATIENT TEMPERATURE (BEAKER) (test hpkb=5881) 36.7 C FIO2 (BEAKER) (test bniw=3085) 40.0 % CALCIUM, [id number] 19:50:00 Test Item Value Reference Range Comments CALCIUM IONIZED (BEAKER) (test ldcg=582) 1.11 mmol/L 1.12-1.27 PH, BLOOD (BEAKER) (test npfn=5444) 7.51 HGB/HCT (H&H) - STAT [id number] 19:50:00 Test Item Value Reference Range Comments HEMOGLOBIN (BEAKER) (test govu=850) 9.3 g/dL 13.0-16.8 HEMATOCRIT (BEAKER) (test mthr=419) 27.0 % 40.0-50.0 THROMBOELASTOGRAPH (TEG)2018-12-05 18:56:00 Test Item Value Reference Range Comments TEG ACTIVATED CLOTTING TIME (BEAKER) (test 13.0 minutes 4.0-7.0 nkbu=5533) TEG FIBRINOGEN ACTIVITY (BEAKER) (test 55.7 degrees 61.0-73.0 govm=3070) TEG PLT. AGGREGATION (BEAKER) (test hmvf=8006) 57.3 MM 55.0-65.0 TEG FIBRINOLYSIS (BEAKER) (test zpki=7140) 0.0 % 0.0-5.0 TGH ACTIVATED CLOTTING TIME (BEAKER) (test 7.2 minutes 4.0-7.0 iibo=2998) TGH FIBRINOGEN ACTIVITY (BEAKER) (test 71.5 degrees 61.0-73.0 trfq=3595) TGH PLT. AGGREGATION (BEAKER) (test yebe=9899) 56.9 MM 55.0-65.0 TGH FIBRINOLYSIS (BEAKER) (test eheo=0562) 0.0 % 0.0-5.0 [id number] 17:58:00 Test Item Value Reference Range Comments PROTIME (BEAKER) (test chmh=792) 16.5 seconds 11.7-14.7 INR (BEAKER) (test ahbj=993) 1.3 <=5.9 PARTIAL THROMBOPLASTIN TIME (BEAKER) (test 44.1 seconds 22.5-36.0 jrjj=070) RECOMMENDED COUMADIN/WARFARIN INR THERAPY RANGESSTANDARD DOSE: 2.0 - 3.0 Includes: PROPHYLAXIS forvenous thrombosis, systemic embolization; TREATMENT for venous thrombosis and/or pulmonary embolus.HIGH RISK: Target INR is 2.5-3.5 for patients with mechanical heart valves.PROTHROMBIN [id number] 17:57: 00 Test Item Value Reference Range Comments PROTIME (BEAKER) (test aatt=313) 16.5 seconds 11.7-14.7 INR (BEAKER) (test fqoz=394) 1.3 <=5.9 RECOMMENDED COUMADIN/WARFARIN INR THERAPY RANGESSTANDARD DOSE: 2.0 - 3.0 Includes: PROPHYLAXIS forvenous thrombosis, systemic embolization; TREATMENT for venous thrombosis and/or pulmonary embolus.HIGH RISK: Target INR is 2.5-3.5 for patients with mechanical heart valves.[id number] 17:57:00 Test Item Value Reference Range Comments FIBRINOGEN LEVEL (BEAKER) (test rewm=359) 347 mg/dl 225-434 [id number] 17:27:00 Test Item Value Reference Range Comments PHOSPHORUS (BEAKER) (test kcqd=404) 3.3 mg/dL 2.3-4.7 [id number] 17:27:00 Test Item Value Reference Range Comments MAGNESIUM (BEAKER) (test mkcz=189) 2.6 mg/dL 1.6-2.6 BASIC METABOLIC [id number] 17:27:00 Test Item Value Reference Range Comments SODIUM (BEAKER) (test 141 meq/L 136-145 srku=583) POTASSIUM (BEAKER) (test 4.1 meq/L 3.5-5.1 fobv=754) CHLORIDE (BEAKER) (test 111 meq/L 98-107 wgcd=203) CO2 (BEAKER) (test 22 meq/L 22-29 plnd=141) BLOOD UREA NITROGEN 20 mg/dL 7-21 (BEAKER) (test pxop=115) CREATININE (BEAKER) (test 1.55 mg/dL 0.57-1.25 zmpn=605) GLUCOSE RANDOM (BEAKER) 140 mg/dL 70-105 (test cpgc=137) CALCIUM (BEAKER) (test 9.1 mg/dL 8.4-10.2 nmhi=067) EGFR (BEAKER) (test 45 mL/min/1.73 sq m ESTIMATED GFR IS NOT xywu=5556) ACCURATE CREATININE CLEARANCE IN PREDICTING GLOMERULAR FILTRATION RATE. ESTIMATED GFR IS NOT APPLICABLE FOR DIALYSIS PATIENTS. LACTIC ACID, [id number] 17:21:00 Test Item Value Reference Range Comments LACTATE BLOOD ARTERIAL (2) (BEAKER) (test 1.9 mmol/L 0.5-2.2 ttty=2201) OXYGEN SATURATION, [id number] 17:10:00 Test Item Value Reference Range Comments O2 SATURATION (MEASURED) (BEAKER) (test ttbb=5660) 81.3 % CBC W/PLT COUNT & AUTO [id number] 17:07:00 Test Item Value Reference Range Comments WHITE BLOOD CELL COUNT (BEAKER) (test yorl=421) 12.6 K/ L 3.5-10.5 RED BLOOD CELL COUNT (BEAKER) (test gbvg=770) 2.99 M/ L 4.63-6.08 HEMOGLOBIN (BEAKER) (test axdy=902) 9.8 GM/DL 13.7-17.5 HEMATOCRIT (BEAKER) (test zjip=798) 29.4 % 40.1-51.0 MEAN CORPUSCULAR VOLUME (BEAKER) (test zjnr=897) 98.3 fL 79.0-92.2 MEAN CORPUSCULAR HEMOGLOBIN (BEAKER) (test 32.8 pg 25.7-32.2 apqf=403) MEAN CORPUSCULAR HEMOGLOBIN CONC (BEAKER) (test 33.3 GM/DL 32.3-36.5 uawr=795) RED CELL DISTRIBUTION WIDTH (BEAKER) (test 13.3 % 11.6-14.4 iokl=505) PLATELET COUNT (BEAKER) (test oold=117) 143 K/CU MM 150-450 MEAN PLATELET VOLUME (BEAKER) (test qued=162) 11.2 fL 9.4-12.4 NUCLEATED RED BLOOD CELLS (BEAKER) (test 0 /100 WBC 0-0 fvtf=259) NEUTROPHILS RELATIVE PERCENT (BEAKER) (test 85 % ximk=206) LYMPHOCYTES RELATIVE PERCENT (BEAKER) (test 7 % lfln=526) MONOCYTES RELATIVE PERCENT (BEAKER) (test 6 % wgri=162) EOSINOPHILS RELATIVE PERCENT (BEAKER) (test 0 % wwgr=733) BASOPHILS RELATIVE PERCENT (BEAKER) (test 0 % dgia=316) NEUTROPHILS ABSOLUTE COUNT (BEAKER) (test 10.74 K/ L 1.78-5.38 ytsr=112) LYMPHOCYTES ABSOLUTE COUNT (BEAKER) (test 0.93 K/ L 1.32-3.57 bxtu=650) MONOCYTES ABSOLUTE COUNT (BEAKER) (test 0.81 K/ L 0.30-0.82 wxms=974) EOSINOPHILS ABSOLUTE COUNT (BEAKER) (test 0.05 K/ L 0.04-0.54 hxse=583) BASOPHILS ABSOLUTE COUNT (BEAKER) (test 0.05 K/ L 0.01-0.08 yrvo=710) IMMATURE GRANULOCYTES-RELATIVE PERCENT (BEAKER) 0 % 0-1 (test mpts=3379) SODIUM NA-STAT [id number] 17:05:00 Test Item Value Reference Range Comments SODIUM (BEAKER) (test jwms=526) 138 meq/L 135-148 POTASSIUM-STAT [id number] 17:05:00 Test Item Value Reference Range Comments POTASSIUM (BEAKER) (test bogh=453) 3.9 meq/L 3.6-5.5 BLOOD GAS, [id number] 17:05:00 Test Item Value Reference Range Comments PH ARTERIAL (BEAKER) (test qwbg=724) 7.44 7.35-7.45 PCO2 ARTERIAL (BEAKER) (test lpns=279) 35 mmHg 35-45 PO2 ARTERIAL (BEAKER) (test vuva=248) 294 mmHg 80-90 O2 SATURATION ARTERIAL (BEAKER) (test uuex=331) 99.7 % 96.0-97.0 HCO3 ARTERIAL (BEAKER) (test gboh=493) 23 mmol/L 21-29 BASE EXCESS ARTERIAL (BEAKER) (test dnxt=220) -1.3 mmol/L -2.0-3.0 PATIENT TEMPERATURE (BEAKER) (test wjes=3536) 34.6 C FIO2 (BEAKER) (test pjic=3074) 80.0 % GLUCOSE-STAT [id number] 17:05:00 Test Item Value Reference Range Comments GLUCOSE RANDOM (BEAKER) (test zulx=860) 140 mg/dL 70-110 HGB/HCT (H&H) - STAT [id number] 17:05:00 Test Item Value Reference Range Comments HEMOGLOBIN (BEAKER) (test ctwy=611) 10.1 g/dL 13.0-16.8 HEMATOCRIT (BEAKER) (test uifo=980) 30.0 % 40.0-50.0 THROMBOELASTOGRAPH (TEG)2018-12-05 15:43:00 Test Item Value Reference Range Comments TEG ACTIVATED CLOTTING TIME (BEAKER) (test 4.8 minutes 4.0-7.0 kzjn=5278) TEG FIBRINOGEN ACTIVITY (BEAKER) (test 73.0 degrees 61.0-73.0 tdri=7350) TEG PLT. AGGREGATION (BEAKER) (test vflx=9286) 63.4 MM 55.0-65.0 TGH ACTIVATED CLOTTING TIME (BEAKER) (test 4.9 minutes 4.0-7.0 kwnh=1512) TGH FIBRINOGEN ACTIVITY (BEAKER) (test 73.1 degrees 61.0-73.0 qrmq=5455) TGH PLT. AGGREGATION (BEAKER) (test enwp=7846) 63.7 MM 55.0-65.0 [id number] 14:59:00 Test Item Value Reference Range Comments FIBRINOGEN LEVEL (BEAKER) (test srsl=705) 368 mg/dl 225-434 [id number] 14:59:00 Test Item Value Reference Range Comments PROTIME (BEAKER) (test qrrd=796) 17.1 seconds 11.7-14.7 INR (BEAKER) (test swwf=255) 1.4 <=5.9 PARTIAL THROMBOPLASTIN TIME (BEAKER) (test 27.8 seconds 22.5-36.0 qbvb=673) RECOMMENDED COUMADIN/WARFARIN INR THERAPY RANGESSTANDARD DOSE: 2.0 - 3.0 Includes: PROPHYLAXIS forvenous thrombosis, systemic embolization; TREATMENT for venous thrombosis and/or pulmonary embolus.HIGH RISK: Target INR is 2.5-3.5 for patients with mechanical heart valves.CBC (HEMOGRAM ONLY)2018-12-05 14:51:00 Test Item Value Reference Range Comments WHITE BLOOD CELL COUNT (BEAKER) (test dtbs=037) 15.7 K/ L 3.5-10.5 RED BLOOD CELL COUNT (BEAKER) (test hbss=045) 3.11 M/ L 4.63-6.08 HEMOGLOBIN (BEAKER) (test nwzq=077) 10.0 GM/DL 13.7-17.5 HEMATOCRIT (BEAKER) (test icrg=835) 30.7 % 40.1-51.0 MEAN CORPUSCULAR VOLUME (BEAKER) (test nmhl=132) 98.7 fL 79.0-92.2 MEAN CORPUSCULAR HEMOGLOBIN (BEAKER) (test 32.2 pg 25.7-32.2 dbcc=761) MEAN CORPUSCULAR HEMOGLOBIN CONC (BEAKER) (test 32.6 GM/DL 32.3-36.5 btpp=375) RED CELL DISTRIBUTION WIDTH (BEAKER) (test 13.2 % 11.6-14.4 janv=328) PLATELET COUNT (BEAKER) (test jxlu=544) 111 K/CU MM 150-450 MEAN PLATELET VOLUME (BEAKER) (test lmwj=670) 11.8 fL 9.4-12.4 NUCLEATED RED BLOOD CELLS (BEAKER) (test 0 /100 WBC 0-0 lkao=287) BLOOD GAS, [id number] 14:15:00 Test Item Value Reference Range Comments PH ARTERIAL (BEAKER) (test maou=979) 7.37 7.35-7.45 PCO2 ARTERIAL (BEAKER) (test hzml=746) 45 mmHg 35-45 PO2 ARTERIAL (BEAKER) (test xccl=006) 196 mmHg 80-90 O2 SATURATION ARTERIAL (BEAKER) (test hgex=975) 99.3 % 96.0-97.0 HCO3 ARTERIAL (BEAKER) (test kwtg=642) 26 mmol/L 21-29 BASE EXCESS ARTERIAL (BEAKER) (test avuv=172) 0.1 mmol/L -2.0-3.0 PATIENT TEMPERATURE (BEAKER) (test fojj=1234) 35.8 C FIO2 (BEAKER) (test ouaf=1203) 95.0 % GLUCOSE-STAT [id number] 14:15:00 Test Item Value Reference Range Comments GLUCOSE RANDOM (BEAKER) (test elnu=345) 196 mg/dL 70-110 HGB/HCT (H&H) - STAT [id number] 14:15:00 Test Item Value Reference Range Comments HEMOGLOBIN (BEAKER) (test npxg=214) 9.9 g/dL 13.0-16.8 HEMATOCRIT (BEAKER) (test dykq=016) 29.0 % 40.0-50.0 SODIUM NA-STAT [id number] 14:13:00 Test Item Value Reference Range Comments SODIUM (BEAKER) (test mauf=379) 136 meq/L 135-148 POTASSIUM-STAT [id number] 14:13:00 Test Item Value Reference Range Comments POTASSIUM (BEAKER) (test vjhf=548) 4.9 meq/L 3.6-5.5 BLOOD GAS, [id number] 13:59:00 Test Item Value Reference Range Comments PH ARTERIAL (BEAKER) (test bbbl=502) 7.38 7.35-7.45 PCO2 ARTERIAL (BEAKER) (test ijxp=747) 45 mmHg 35-45 PO2 ARTERIAL (BEAKER) (test dycv=510) 317 mmHg 80-90 O2 SATURATION ARTERIAL (BEAKER) (test iiys=340) 99.7 % 96.0-97.0 HCO3 ARTERIAL (BEAKER) (test aoha=539) 26 mmol/L 21-29 BASE EXCESS ARTERIAL (BEAKER) (test briu=678) 0.8 mmol/L -2.0-3.0 PATIENT TEMPERATURE (BEAKER) (test zwcx=4969) 36.7 C FIO2 (BEAKER) (test ocuf=0942) 90.0 % POTASSIUM-STAT [id number] 13:59:00 Test Item Value Reference Range Comments POTASSIUM (BEAKER) (test fekq=598) 5.7 meq/L 3.6-5.5 GLUCOSE-STAT [id number] 13:59:00 Test Item Value Reference Range Comments GLUCOSE RANDOM (BEAKER) (test wfzf=563) 221 mg/dL 70-110 HGB/HCT (H&H) - STAT [id number] 13:59:00 Test Item Value Reference Range Comments HEMOGLOBIN (BEAKER) (test qehf=800) 10.2 g/dL 13.0-16.8 HEMATOCRIT (BEAKER) (test ejkt=353) 30.0 % 40.0-50.0 SODIUM NA-STAT [id number] 13:44:00 Test Item Value Reference Range Comments SODIUM (BEAKER) (test xvev=484) 135 meq/L 135-148 BLOOD GAS, [id number] 13:11:00 Test Item Value Reference Range Comments PH ARTERIAL (BEAKER) (test smuh=284) 7.41 7.35-7.45 PCO2 ARTERIAL (BEAKER) (test jmhz=886) 37 mmHg 35-45 PO2 ARTERIAL (BEAKER) (test qfot=762) 310 mmHg 80-90 O2 SATURATION ARTERIAL (BEAKER) (test rrpg=943) 99.7 % 96.0-97.0 HCO3 ARTERIAL (BEAKER) (test cucl=356) 24 mmol/L 21-29 BASE EXCESS ARTERIAL (BEAKER) (test xjrs=273) -1.5 mmol/L -2.0-3.0 PATIENT TEMPERATURE (BEAKER) (test hbme=4286) 32.7 C FIO2 (BEAKER) (test jamc=2519) 70.0 % GLUCOSE-STAT [id number] 13:11:00 Test Item Value Reference Range Comments GLUCOSE RANDOM (BEAKER) (test tvbs=730) 218 mg/dL 70-110 HGB/HCT (H&H) - STAT [id number] 13:11:00 Test Item Value Reference Range Comments HEMOGLOBIN (BEAKER) (test tzcb=465) 9.9 g/dL 13.0-16.8 HEMATOCRIT (BEAKER) (test sqdc=649) 29.0 % 40.0-50.0 SODIUM NA-STAT [id number] 13:09:00 Test Item Value Reference Range Comments SODIUM (BEAKER) (test lywd=449) 135 meq/L 135-148 POTASSIUM-STAT [id number] 13:09:00 Test Item Value Reference Range Comments POTASSIUM (BEAKER) (test ghsx=475) 5.3 meq/L 3.6-5.5 BLOOD GAS, [id number] 12:50:00 Test Item Value Reference Range Comments PH ARTERIAL (BEAKER) (test pzqv=427) 7.44 7.35-7.45 PCO2 ARTERIAL (BEAKER) (test urlo=181) 36 mmHg 35-45 PO2 ARTERIAL (BEAKER) (test hqyn=449) 278 mmHg 80-90 O2 SATURATION ARTERIAL (BEAKER) (test jjvk=940) 99.7 % 96.0-97.0 HCO3 ARTERIAL (BEAKER) (test foio=166) 25 mmol/L 21-29 BASE EXCESS ARTERIAL (BEAKER) (test okor=447) -0.7 mmol/L -2.0-3.0 PATIENT TEMPERATURE (BEAKER) (test gsvb=6053) 30.2 C FIO2 (BEAKER) (test eivq=4467) 65.0 % GLUCOSE-STAT [id number] 12:50:00 Test Item Value Reference Range Comments GLUCOSE RANDOM (BEAKER) (test alhh=772) 208 mg/dL 70-110 HGB/HCT (H&H) - STAT [id number] 12:50:00 Test Item Value Reference Range Comments HEMOGLOBIN (BEAKER) (test ghyo=199) 9.7 g/dL 13.0-16.8 HEMATOCRIT (BEAKER) (test seog=267) 29.0 % 40.0-50.0 SODIUM NA-STAT [id number] 12:49:00 Test Item Value Reference Range Comments SODIUM (BEAKER) (test bwnh=144) 135 meq/L 135-148 POTASSIUM-STAT [id number] 12:49:00 Test Item Value Reference Range Comments POTASSIUM (BEAKER) (test mjqu=469) 5.1 meq/L 3.6-5.5 BLOOD GAS, [id number] 12:23:00 Test Item Value Reference Range Comments PH ARTERIAL (BEAKER) (test oynv=338) 7.47 7.35-7.45 PCO2 ARTERIAL (BEAKER) (test rgvj=065) 33 mmHg 35-45 PO2 ARTERIAL (BEAKER) (test edne=051) 390 mmHg 80-90 O2 SATURATION ARTERIAL (BEAKER) (test fffq=168) 99.8 % 96.0-97.0 HCO3 ARTERIAL (BEAKER) (test cvkz=563) 26 mmol/L 21-29 BASE EXCESS ARTERIAL (BEAKER) (test nwli=249) 0.3 mmol/L -2.0-3.0 PATIENT TEMPERATURE (BEAKER) (test qmzw=5594) 30.3 C FIO2 (BEAKER) (test hauy=1367) 80.0 % GLUCOSE-STAT [id number] 12:23:00 Test Item Value Reference Range Comments GLUCOSE RANDOM (BEAKER) (test wvqs=871) 183 mg/dL 70-110 HGB/HCT (H&H) - STAT [id number] 12:23:00 Test Item Value Reference Range Comments HEMOGLOBIN (BEAKER) (test nhce=316) 9.7 g/dL 13.0-16.8 HEMATOCRIT (BEAKER) (test ddhm=197) 29.0 % 40.0-50.0 SODIUM NA-STAT [id number] 12:22:00 Test Item Value Reference Range Comments SODIUM (BEAKER) (test wdic=627) 135 meq/L 135-148 POTASSIUM-STAT [id number] 12:22:00 Test Item Value Reference Range Comments POTASSIUM (BEAKER) (test icsa=421) 4.7 meq/L 3.6-5.5 SODIUM NA-STAT [id number] 11:58:00 Test Item Value Reference Range Comments SODIUM (BEAKER) (test nfow=916) 136 meq/L 135-148 POTASSIUM-STAT [id number] 11:58:00 Test Item Value Reference Range Comments POTASSIUM (BEAKER) (test hzum=303) 4.1 meq/L 3.6-5.5 BLOOD GAS, [id number] 11:58:00 Test Item Value Reference Range Comments PH ARTERIAL (BEAKER) (test svaj=238) 7.45 7.35-7.45 PCO2 ARTERIAL (BEAKER) (test gynx=904) 37 mmHg 35-45 PO2 ARTERIAL (BEAKER) (test vufn=608) 523 mmHg 80-90 O2 SATURATION ARTERIAL (BEAKER) (test qoiq=219) 99.9 % 96.0-97.0 HCO3 ARTERIAL (BEAKER) (test mhkf=145) 26 mmol/L 21-29 BASE EXCESS ARTERIAL (BEAKER) (test eiut=261) 0.9 mmol/L -2.0-3.0 PATIENT TEMPERATURE (BEAKER) (test ltds=1525) 33.6 C FIO2 (BEAKER) (test offa=7315) 100.0 % GLUCOSE-STAT [id number] 11:58:00 Test Item Value Reference Range Comments GLUCOSE RANDOM (BEAKER) (test oflw=390) 143 mg/dL 70-110 HGB/HCT (H&H) - STAT [id number] 11:58:00 Test Item Value Reference Range Comments HEMOGLOBIN (BEAKER) (test ywkj=421) 10.9 g/dL 13.0-16.8 HEMATOCRIT (BEAKER) (test lcaz=033) 32.0 % 40.0-50.0 BLOOD GAS, [id number] 11:57:00 Test Item Value Reference Range Comments PH VENOUS (BEAKER) (test icja=340) 7.42 7.32-7.42 PCO2 VENOUS (BEAKER) (test hvwv=012) 39 mmHg 41-51 PO2 VENOUS (BEAKER) (test mybe=397) 63 mmHg 25-40 O2 SATURATION VENOUS (BEAKER) (test axhn=830) 95.3 % 40.0-70.0 HCO3 VENOUS (BEAKER) (test onyw=079) 26 mmol/L 21-29 BASE EXCESS VENOUS (BEAKER) (test svcu=684) 0.0 mmol/L -2.0-3.0 PATIENT TEMPERATURE (BEAKER) (test tnev=5067) 33.6 C FIO2 (BEAKER) (test jrrc=4657) 100.0 % HEMOGLOBIN [id number] 10:26:00 Test Item Value Reference Range Comments HEMOGLOBIN A1C (BEAKER) (test rdlb=841) 5.2 % 4.3-6.1 PLATELET AGGREGATION: FUNCTION [id number] 09:03:00 Test Item Value Reference Range Comments WEAK ADP RESULT(BEAKER) (test 55 % 60-91 zyio=9769) PLATELET FUNCTION SCREEN 50-59% indicates mild platelet INTERP (BEAKER) (test dysfunction ptzf=4421) [id number] Sam Ramírez MD (electronic (BEAKER) (test xodp=2895) signature) PLATELET COUNT AGG (BEAKER) 169 K/CU MM 150-450 (test scpu=3950) Platelet Function Screen results may be falsely low with platelet counts<100, 000/cu mm.BLOOD GAS, [id number] 08:53:00 Test Item Value Reference Range Comments PH ARTERIAL (BEAKER) (test omql=592) 7.49 7.35-7.45 PCO2 ARTERIAL (BEAKER) (test zzrh=122) 31 mmHg 35-45 PO2 ARTERIAL (BEAKER) (test wqhd=985) 356 mmHg 80-90 O2 SATURATION ARTERIAL (BEAKER) (test wzqh=955) 99.8 % 96.0-97.0 HCO3 ARTERIAL (BEAKER) (test uxxn=824) 23 mmol/L 21-29 BASE EXCESS ARTERIAL (BEAKER) (test avbt=371) 0.2 mmol/L -2.0-3.0 PATIENT TEMPERATURE (BEAKER) (test diez=5154) 36.2 C FIO2 (BEAKER) (test itiu=7492) 100.0 % HGB/HCT (H&H) - STAT [id number] 08:53:00 Test Item Value Reference Range Comments HEMOGLOBIN (BEAKER) (test unuk=375) 12.7 g/dL 13.0-16.8 HEMATOCRIT (BEAKER) (test dyun=101) 37.0 % 40.0-50.0 CALCIUM, [id number] 08:53:00 Test Item Value Reference Range Comments CALCIUM IONIZED (BEAKER) (test ggcs=191) 1.05 mmol/L 1.12-1.27 PH, BLOOD (BEAKER) (test ddwf=3929) 7.48 GLUCOSE-STAT [id number] 08:51:00 Test Item Value Reference Range Comments GLUCOSE RANDOM (BEAKER) (test pexj=757) 102 mg/dL 70-110 SODIUM NA-STAT [id number] 08:51:00 Test Item Value Reference Range Comments SODIUM (BEAKER) (test ecri=069) 138 meq/L 135-148 POTASSIUM-STAT [id number] 08:51:00 Test Item Value Reference Range Comments POTASSIUM (BEAKER) (test depc=880) 4.1 meq/L 3.6-5.5 URINALYSIS W/ [id number] 05:26:00 Test Item Value Reference Range Comments COLOR (BEAKER) (test dnbw=685) Yellow CLARITY (BEAKER) (test asin=609) Clear SPECIFIC GRAVITY UA (BEAKER) (test xftz=341) 1.008 1.001-1.035 PH UA (BEAKER) (test pmqn=144) 7.5 5.0-8.0 PROTEIN UA (BEAKER) (test plim=556) 10 mg/dL Negative GLUCOSE UA (BEAKER) (test lofv=567) Negative Negative KETONES UA (BEAKER) (test ddse=757) Negative Negative BILIRUBIN UA (BEAKER) (test ipop=461) Negative Negative BLOOD UA (BEAKER) (test gydt=552) Negative Negative NITRITE UA (BEAKER) (test ztnu=782) Negative Negative LEUKOCYTE ESTERASE UA (BEAKER) (test egci=105) Negative Negative UROBILINOGEN UA (BEAKER) (test isgv=356) 2.0 mg/dL 0.2-1.0 RBC UA (BEAKER) (test axdj=100) < /HPF WBC UA (BEAKER) (test prcb=459) 0 /HPF MUCUS (BEAKER) (test kmyi=4863) Rare AMORPHOUS CRYSTALS (BEAKER) (test hjyj=1009) Rare SOURCE(BEAKER) (test vebz=8525) Urine, Voided VITAMIN D, [id number] 05:01:00 Test Item Value Reference Range Comments VITAMIN D 25-OH (BEAKER) (test slxm=8421) 24.8 ng/mL 6.6-49.9 Effective 06/19/2017: Reference Range ChangeNew: 6.6-49.9 ng/mL Previous: 13.0 -47.8 ng/mLRecommended Vitamin D Target Range: 30.0-40.0 ng/mLCREATININE, RANDOM [id number] 04:55:00 Test Item Value Reference Range Comments CREATININE URINE (BEAKER) (test cdah=346) 68.3 mg/dL Reference Range: No NormalsPROTEIN, RANDOM [id number] 04:55:00 Test Item Value Reference Range Comments PROTEIN, URINE (BEAKER) (test omnf=3609) 19 mg/dL 0-14 PTH, [id number] 04:44:00 Test Item Value Reference Range Comments PARATHYROID HORMONE INTACT (BEAKER) (test 69.0 pg/mL 8.5-72.5 ltic=417) BASIC METABOLIC [id number] 04:41:00 Test Item Value Reference Range Comments SODIUM (BEAKER) (test 140 meq/L 136-145 gbbd=566) POTASSIUM (BEAKER) (test 4.0 meq/L 3.5-5.1 rrxt=494) CHLORIDE (BEAKER) (test 108 meq/L 98-107 ujcr=282) CO2 (BEAKER) (test 23 meq/L 22-29 cmma=723) BLOOD UREA NITROGEN 19 mg/dL 7-21 (BEAKER) (test xnak=954) CREATININE (BEAKER) (test 1.65 mg/dL 0.57-1.25 qqap=575) GLUCOSE RANDOM (BEAKER) 105 mg/dL 70-105 (test wmno=596) CALCIUM (BEAKER) (test 9.3 mg/dL 8.4-10.2 kvbr=867) EGFR (BEAKER) (test 42 mL/min/1.73 sq m ESTIMATED GFR IS NOT rvgm=3958) ACCURATE CREATININE CLEARANCE IN PREDICTING GLOMERULAR FILTRATION RATE. ESTIMATED GFR IS NOT APPLICABLE FOR DIALYSIS PATIENTS. CBC (HEMOGRAM ONLY)2018-12-05 04:24:00 Test Item Value Reference Range Comments WHITE BLOOD CELL COUNT (BEAKER) (test ttrh=784) 7.4 K/ L 3.5-10.5 RED BLOOD CELL COUNT (BEAKER) (test jhyj=515) 3.87 M/ L 4.63-6.08 HEMOGLOBIN (BEAKER) (test uhjn=576) 12.4 GM/DL 13.7-17.5 HEMATOCRIT (BEAKER) (test oxwc=500) 37.0 % 40.1-51.0 MEAN CORPUSCULAR VOLUME (BEAKER) (test iroq=337) 95.6 fL 79.0-92.2 MEAN CORPUSCULAR HEMOGLOBIN (BEAKER) (test 32.0 pg 25.7-32.2 mcni=159) MEAN CORPUSCULAR HEMOGLOBIN CONC (BEAKER) (test 33.5 GM/DL 32.3-36.5 ahgw=602) RED CELL DISTRIBUTION WIDTH (BEAKER) (test 13.2 % 11.6-14.4 rhpp=490) PLATELET COUNT (BEAKER) (test uwuh=379) 174 K/CU MM 150-450 MEAN PLATELET VOLUME (BEAKER) (test xptf=807) 11.8 fL 9.4-12.4 NUCLEATED RED BLOOD CELLS (BEAKER) (test 0 /100 WBC 0-0 gtqk=843) RAD, CHEST, 1 VIEW, NON [id number] 20:09:00Reason for exam:->Pre Op (ACB ) ScreeninigShould this be performed at the bedside?->YesFINAL REPORT INDICATION: Pre Op (ACB) Screeninig COMPARISON: None TECHNIQUE: Single frontal view of the chest. FINDINGS: Lungs and pleura: Clear lungs. No effusion.Heart and mediastinum: Normal heart size. Unremarkable mediastinal contours.Osseous structures: No acute abnormality.Other: None. IMPRESSION: No acute intrathoracic abnormality. Signed: Carmen Mcduffie MDReport Verified Date/Time: 12/04/2018 20:09:09 Reading Location: [facility] C013V Neuro Reading Room [id number] 04:47:00 Test Item Value Reference Range Comments PARTIAL THROMBOPLASTIN TIME (BEAKER) (test 83.1 seconds 22.5-36.0 rbeu=031) [id number] 04:44:00 Test Item Value Reference Range Comments MAGNESIUM (BEAKER) (test 2.3 mg/dL 1.6-2.6 Specimen slightly hemolyzed btcm=079) BASIC METABOLIC [id number] 04:44:00 Test Item Value Reference Range Comments SODIUM (BEAKER) (test 141 meq/L 136-145 ngga=400) POTASSIUM (BEAKER) (test 4.0 meq/L 3.5-5.1 Specimen slightly ainy=791) hemolyzed CHLORIDE (BEAKER) (test 109 meq/L 98-107 pken=965) CO2 (BEAKER) (test 22 meq/L 22-29 dmtx=914) BLOOD UREA NITROGEN 24 mg/dL 7-21 (BEAKER) (test ywgj=805) CREATININE (BEAKER) (test 1.61 mg/dL 0.57-1.25 Specimen slightly iypv=902) hemolyzed GLUCOSE RANDOM (BEAKER) 98 mg/dL 70-105 (test kyjz=144) CALCIUM (BEAKER) (test 9.3 mg/dL 8.4-10.2 meaf=542) EGFR (BEAKER) (test 43 mL/min/1.73 sq m ESTIMATED GFR IS NOT ejnb=6279) ACCURATE CREATININE CLEARANCE IN PREDICTING GLOMERULAR FILTRATION RATE. ESTIMATED GFR IS NOT APPLICABLE FOR DIALYSIS PATIENTS. CBC (HEMOGRAM ONLY)2018-12-04 04:28:00 Test Item Value Reference Range Comments WHITE BLOOD CELL COUNT (BEAKER) (test jmpn=812) 7.6 K/ L 3.5-10.5 RED BLOOD CELL COUNT (BEAKER) (test dofp=109) 3.88 M/ L 4.63-6.08 HEMOGLOBIN (BEAKER) (test vnqk=746) 12.3 GM/DL 13.7-17.5 HEMATOCRIT (BEAKER) (test adrg=796) 37.6 % 40.1-51.0 MEAN CORPUSCULAR VOLUME (BEAKER) (test mozh=637) 96.9 fL 79.0-92.2 MEAN CORPUSCULAR HEMOGLOBIN (BEAKER) (test 31.7 pg 25.7-32.2 cnep=682) MEAN CORPUSCULAR HEMOGLOBIN CONC (BEAKER) (test 32.7 GM/DL 32.3-36.5 bgyk=917) RED CELL DISTRIBUTION WIDTH (BEAKER) (test 13.3 % 11.6-14.4 kknc=813) PLATELET COUNT (BEAKER) (test kxpx=834) 158 K/CU MM 150-450 MEAN PLATELET VOLUME (BEAKER) (test fxdl=570) 11.6 fL 9.4-12.4 NUCLEATED RED BLOOD CELLS (BEAKER) (test 0 /100 WBC 0-0 aetf=608) PLATELET AGGREGATION: DRUG [id number] 19:31:00 Test Item Value Reference Range Comments STRONG ADP RESULT(BEAKER) (test 67 % 70-94 pgjd=7490) WEAK ADP RESULT(BEAKER) (test 65 % 60-91 htkq=2222) ARACHADONIC ACID RESULT(BEAKER) 5 % 63-89 (test lumh=0178) PLATELET AGG DRUG INTERPRETATION Normal response to ADP (BEAKER) (test ahnt=9886) suggests a lack of A6V71-fibthczzl effect. PLATELET AGG DRUG INTERPRETATION Decreased response to (BEAKER) (test bicl=603335) arachidonic acid suggests aspirin-like effect. KILD-XSMETKKJIDE-8565 (BEAKER) Sandi Ovalle MD (test ysik=3246) (electronic signature) PLATELET COUNT AGG (BEAKER) 163 K/CU MM 150-450 (test uwmg=1958) Platelet aggregation results may be falsely low with platelet counts<100,000/ CU MM.[id number] 12:53:00 Test Item Value Reference Range Comments PARTIAL THROMBOPLASTIN TIME (BEAKER) (test 69.0 seconds 22.5-36.0 prma=030) BASIC METABOLIC [id number] 07:03:00 Test Item Value Reference Range Comments SODIUM (BEAKER) (test 140 meq/L 136-145 ztad=593) POTASSIUM (BEAKER) (test 3.6 meq/L 3.5-5.1 Specimen slightly dyia=480) hemolyzed CHLORIDE (BEAKER) (test 110 meq/L 98-107 rvtq=747) CO2 (BEAKER) (test 21 meq/L 22-29 fems=251) BLOOD UREA NITROGEN 31 mg/dL 7-21 (BEAKER) (test ajbr=354) CREATININE (BEAKER) (test 1.54 mg/dL 0.57-1.25 Specimen slightly beqf=956) hemolyzed GLUCOSE RANDOM (BEAKER) 90 mg/dL 70-105 (test swml=672) CALCIUM (BEAKER) (test 8.2 mg/dL 8.4-10.2 kzqe=718) EGFR (BEAKER) (test 45 mL/min/1.73 sq m ESTIMATED GFR IS NOT qmjg=5198) ACCURATE CREATININE CLEARANCE IN PREDICTING GLOMERULAR FILTRATION RATE. ESTIMATED GFR IS NOT APPLICABLE FOR DIALYSIS PATIENTS. [id number] 06:52:00 Test Item Value Reference Range Comments PARTIAL THROMBOPLASTIN TIME (BEAKER) (test 65.5 seconds 22.5-36.0 dldw=785) CBC (HEMOGRAM ONLY)2018-12-03 06:39:00 Test Item Value Reference Range Comments WHITE BLOOD CELL COUNT (BEAKER) (test wqls=988) 8.5 K/ L 3.5-10.5 RED BLOOD CELL COUNT (BEAKER) (test ouno=234) 3.87 M/ L 4.63-6.08 HEMOGLOBIN (BEAKER) (test yfqx=003) 12.1 GM/DL 13.7-17.5 HEMATOCRIT (BEAKER) (test namd=767) 37.6 % 40.1-51.0 MEAN CORPUSCULAR VOLUME (BEAKER) (test ehkb=078) 97.2 fL 79.0-92.2 MEAN CORPUSCULAR HEMOGLOBIN (BEAKER) (test 31.3 pg 25.7-32.2 svwh=874) MEAN CORPUSCULAR HEMOGLOBIN CONC (BEAKER) (test 32.2 GM/DL 32.3-36.5 dmsu=016) RED CELL DISTRIBUTION WIDTH (BEAKER) (test 13.4 % 11.6-14.4 gpgx=470) PLATELET COUNT (BEAKER) (test hihx=040) 176 K/CU MM 150-450 MEAN PLATELET VOLUME (BEAKER) (test yqea=516) 12.2 fL 9.4-12.4 NUCLEATED RED BLOOD CELLS (BEAKER) (test 0 /100 WBC 0-0 hfgl=753) [id number] 00:34:00 Test Item Value Reference Range Comments PARTIAL THROMBOPLASTIN TIME (BEAKER) (test 56.8 seconds 22.5-36.0 eklt=979) [id number] 16:56:00 Test Item Value Reference Range Comments PARTIAL THROMBOPLASTIN TIME (BEAKER) (test 54.7 seconds 22.5-36.0 mzft=255) B-TYPE NATRIURETIC FACTOR (BNP)2018-12-02 09:39:00 Test Item Value Reference Range Comments B-TYPE NATRIURETIC PEPTIDE (BEAKER) (test 1056 pg/mL 0-100 zypf=355) [id number] 09:17:00 Test Item Value Reference Range Comments PARTIAL THROMBOPLASTIN TIME (BEAKER) (test 39.8 seconds 22.5-36.0 lizv=410) TROPONIN [id number] 04:45:00 Test Item Value Reference Range Comments TROPONIN I (BEAKER) (test icri=512) 11.57 ng/mL 0.00-0.03 Troponin I (TnI) levels must be interpreted in the context of the presenting symptoms and the clinical findings. Elevated TnI levels indicate myocardial damage, but are not specific for ischemic heart disease. Elevated TnI levels are seen in patients with other cardiac conditions (including myocarditis and congestive heart failure), and slight TnI elevations occur in patients with other conditions, including sepsis, renal failure, acidosis, acute neurological disease, and persistent tachyarrhythmia.BASIC METABOLIC [id number] 04:29:00 Test Item Value Reference Range Comments SODIUM (BEAKER) (test 138 meq/L 136-145 mgdy=896) POTASSIUM (BEAKER) (test 3.9 meq/L 3.5-5.1 Specimen slightly kvlt=173) hemolyzed CHLORIDE (BEAKER) (test 108 meq/L 98-107 vgqz=645) CO2 (BEAKER) (test 18 meq/L 22-29 sqpe=324) BLOOD UREA NITROGEN 39 mg/dL 7-21 (BEAKER) (test eiec=515) CREATININE (BEAKER) (test 1.90 mg/dL 0.57-1.25 Specimen slightly rssu=204) hemolyzed GLUCOSE RANDOM (BEAKER) 85 mg/dL 70-105 (test ugmp=420) CALCIUM (BEAKER) (test 9.0 mg/dL 8.4-10.2 klmy=562) EGFR (BEAKER) (test 36 mL/min/1.73 sq m ESTIMATED GFR IS NOT aaye=9042) ACCURATE CREATININE CLEARANCE IN PREDICTING GLOMERULAR FILTRATION RATE. ESTIMATED GFR IS NOT APPLICABLE FOR DIALYSIS PATIENTS. LIPID [id number] 04:29:00 Test Item Value Reference Range Comments TRIGLYCERIDES (BEAKER) (test 137 mg/dL Specimen slightly hemolyzed bwyh=937) CHOLESTEROL (BEAKER) (test 174 mg/dL Specimen slightly hemolyzed brnc=754) HDL CHOLESTEROL (BEAKER) (test 34 mg/dL fdok=804) LDL CHOLESTEROL CALCULATED 113 mg/dL (BEAKER) (test txob=468) Triglyceride Reference Range: Low Risk <150 Borderline 150- 199 High Risk 200-499 Very High Risk >=500Cholesterol Reference Range: Low Risk <200 Borderline 200-239 High Risk > 240HDL Cholesterol Reference Range: Low Risk >=60 High Risk <40LDL Cholesterol Reference Range: Optimal <100 Near Optimal 100-129 Borderline 130-159 High 160-189 Very High >=190CBC (HEMOGRAM ONLY)2018-12-02 02:47:00 Test Item Value Reference Range Comments WHITE BLOOD CELL COUNT (BEAKER) (test ybhi=243) 11.4 K/ L 3.5-10.5 RED BLOOD CELL COUNT (BEAKER) (test wpkv=259) 4.04 M/ L 4.63-6.08 HEMOGLOBIN (BEAKER) (test kigj=267) 12.6 GM/DL 13.7-17.5 HEMATOCRIT (BEAKER) (test pskx=493) 38.7 % 40.1-51.0 MEAN CORPUSCULAR VOLUME (BEAKER) (test gqim=287) 95.8 fL 79.0-92.2 MEAN CORPUSCULAR HEMOGLOBIN (BEAKER) (test 31.2 pg 25.7-32.2 mwnq=053) MEAN CORPUSCULAR HEMOGLOBIN CONC (BEAKER) (test 32.6 GM/DL 32.3-36.5 pomf=538) RED CELL DISTRIBUTION WIDTH (BEAKER) (test 13.6 % 11.6-14.4 ucvn=506) PLATELET COUNT (BEAKER) (test xzdj=469) 178 K/CU MM 150-450 MEAN PLATELET VOLUME (BEAKER) (test lzyc=846) 11.8 fL 9.4-12.4 NUCLEATED RED BLOOD CELLS (BEAKER) (test 0 /100 WBC 0-0 agpj=875) [id number] 18:55:00 Test Item Value Reference Range Comments ACTIVATED CLOTTING TIME (BEAKER) [address] [facility] [address] (test llkk=599) [facility] [address] COMPREHENSIVE METABOLIC [id number] 18:40:00 Test Item Value Reference Range Comments TOTAL PROTEIN (BEAKER) 6.7 gm/dL 6.0-8.3 (test eerl=369) ALBUMIN (BEAKER) (test 3.4 g/dL 3.5-5.0 tgkk=2156) ALKALINE PHOSPHATASE 59 U/L 40-150 (BEAKER) (test vgnu=938) BILIRUBIN TOTAL (BEAKER) 1.1 mg/dL 0.2-1.2 (test pnij=903) SODIUM (BEAKER) (test 141 meq/L 136-145 ghpp=655) POTASSIUM (BEAKER) (test 3.6 meq/L 3.5-5.1 jfqb=184) CHLORIDE (BEAKER) (test 105 meq/L 98-107 lihj=398) CO2 (BEAKER) (test 26 meq/L 22-29 dotf=253) BLOOD UREA NITROGEN 40 mg/dL 7-21 (BEAKER) (test qjsn=109) CREATININE (BEAKER) (test 2.18 mg/dL 0.57-1.25 ijos=994) GLUCOSE RANDOM (BEAKER) 92 mg/dL 70-105 (test iknb=582) CALCIUM (BEAKER) (test 9.3 mg/dL 8.4-10.2 szrb=385) AST (SGOT) (BEAKER) (test 16 U/L 5-34 jhzn=838) ALT (SGPT) (BEAKER) (test 11 U/L 6-55 zxta=040) EGFR (BEAKER) (test 30 mL/min/1.73 sq m ESTIMATED GFR IS NOT famb=3411) ACCURATE CREATININE CLEARANCE IN PREDICTING GLOMERULAR FILTRATION RATE. ESTIMATED GFR IS NOT APPLICABLE FOR DIALYSIS PATIENTS. PT/[id number] 18:31:00 Test Item Value Reference Range Comments PROTIME (BEAKER) (test qvnu=658) 14.6 seconds 11.7-14.7 INR (BEAKER) (test shci=739) 1.1 <=5.9 PARTIAL THROMBOPLASTIN TIME (BEAKER) (test 38.0 seconds 22.5-36.0 vngg=375) RECOMMENDED COUMADIN/WARFARIN INR THERAPY RANGESSTANDARD DOSE: 2.0 - 3.0 Includes: PROPHYLAXIS forvenous thrombosis, systemic embolization; TREATMENT for venous thrombosis and/or pulmonary embolus.HIGH RISK: Target INR is 2.5-3.5 for patients with mechanical heart valves.PROTHROMBIN [id number] 18:30: 00 Test Item Value Reference Range Comments PROTIME (BEAKER) (test yofp=905) 14.6 seconds 11.7-14.7 INR (BEAKER) (test zcsv=513) 1.1 <=5.9 RECOMMENDED COUMADIN/WARFARIN INR THERAPY RANGESSTANDARD DOSE: 2.0 - 3.0 Includes: PROPHYLAXIS forvenous thrombosis, systemic embolization; TREATMENT for venous thrombosis and/or pulmonary embolus.HIGH RISK: Target INR is 2.5-3.5 for patients with mechanical heart valves.CBC W/PLT COUNT & AUTO [id number] 18:27:00 Test Item Value Reference Range Comments WHITE BLOOD CELL COUNT (BEAKER) (test urqf=446) 13.1 K/ L 3.5-10.5 RED BLOOD CELL COUNT (BEAKER) (test ndnn=847) 3.93 M/ L 4.63-6.08 HEMOGLOBIN (BEAKER) (test dawx=058) 12.4 GM/DL 13.7-17.5 HEMATOCRIT (BEAKER) (test ewnw=914) 37.3 % 40.1-51.0 MEAN CORPUSCULAR VOLUME (BEAKER) (test cdvq=971) 94.9 fL 79.0-92.2 MEAN CORPUSCULAR HEMOGLOBIN (BEAKER) (test 31.6 pg 25.7-32.2 vzyd=430) MEAN CORPUSCULAR HEMOGLOBIN CONC (BEAKER) (test 33.2 GM/DL 32.3-36.5 beil=862) RED CELL DISTRIBUTION WIDTH (BEAKER) (test 13.6 % 11.6-14.4 sldl=583) PLATELET COUNT (BEAKER) (test xmxw=699) 184 K/CU MM 150-450 MEAN PLATELET VOLUME (BEAKER) (test tapw=420) 11.6 fL 9.4-12.4 NUCLEATED RED BLOOD CELLS (BEAKER) (test 0 /100 WBC 0-0 pfng=365) NEUTROPHILS RELATIVE PERCENT (BEAKER) (test 71 % anko=170) LYMPHOCYTES RELATIVE PERCENT (BEAKER) (test 19 % bbch=328) MONOCYTES RELATIVE PERCENT (BEAKER) (test 9 % otpa=265) EOSINOPHILS RELATIVE PERCENT (BEAKER) (test 0 % fkvr=075) BASOPHILS RELATIVE PERCENT (BEAKER) (test 0 % wnog=048) NEUTROPHILS ABSOLUTE COUNT (BEAKER) (test 9.31 K/ L 1.78-5.38 vlya=440) LYMPHOCYTES ABSOLUTE COUNT (BEAKER) (test 2.53 K/ L 1.32-3.57 vjjv=857) MONOCYTES ABSOLUTE COUNT (BEAKER) (test 1.12 K/ L 0.30-0.82 vyoo=561) EOSINOPHILS ABSOLUTE COUNT (BEAKER) (test 0.04 K/ L 0.04-0.54 lgfh=618) BASOPHILS ABSOLUTE COUNT (BEAKER) (test 0.04 K/ L 0.01-0.08 hgxc=679) IMMATURE GRANULOCYTES-RELATIVE PERCENT (BEAKER) 1 % 0-1 (test oiyz=8002) [id number] 18:07:00 Test Item Value Reference Range Comments ACTIVATED CLOTTING TIME [address] [facility] [address] (BEAKER) (test scxm=474) [facility] [address]
--- NOTE | 2018-12-12 19:54 | R.HP ---
FACILITY: [facility] ENCOUNTER DATE AND TIME: 12/12/2018 19:50 (CDT) MR#: [id number] NAME TYLOR GUZMAN ADDRESS: [address] [place] [address] CITY: [place] [address]IP [id number] PHONE: DATE OF : 1950 AGE: 68 SSN# [id number] GENDER: Male DEXTERITY Right-handed MARITAL STATUS RACE White PRE-HOSPITAL LIVING SETTING 01 - Home (private home/apt. board/care, assisted living, retirement, transitional living) PRE-HOSPITAL LIVING WITH Family/Relatives ENCOUNTER PHYSICIAN: Dr. New Blunt M.D. REFERRING DOCTOR: Josee Little DATE OF ADMISSION: 12/12/2018 19:50 (Central Daylight Time) REFERRING FACILITY [facility] HOME TYPE AND DETAILS: Type of home: single family house # of steps to enter the residence: 0 # of steps within the residence: 0 # of levels in the residence: 1 ADMISSION DIAGNOSIS: CABG x4 PRIMARY DIAGNOSIS-RELATED SURGERIES: CABG x 4 by Joanna Carvajal SECONDARY/COMORBID DIAGNOSES (TIERED): - N/A CHRONIC KIDNEY DISEASE hypertension constipation HISTORY OF PRESENT ILLNESS (HPI): Pt. is a 68 yo Right-handed white male. On 12/01/2018 he was admitted to [facility] with diagnosis CABG x4. His impairment category is Cardiac 09 - Cardiac Disorders (09). Pre-morbidly, Pt. was independent/mod-I in Self-Care, Sphincter Control, Transfers Control, Communica tion, Social Cognition, and Locomotion; and he had good Sphincter Control. Currently, he has deficits of Transfers Control, Communication, Social Cognition, Endurance, Balance, Safety Awareness, Self-Care, and Locomotion. Pt. is now referred to [facility] for acute in-patient rehabilitation in order to maximize patient's functional independence in activities of daily living, strength, ROM, and mobi lity. Patient has realistic goal of being discharged at assistance level 6-Deuce to reside at Home with Fam reynaldo/Relatives. MEDICATION ALLERGIES: No Known Drug Allergies (NKDA) ENVIRONMENTAL ALLERGIES: - Substance Allergies None Known - Other Allergies None Known PAST MEDICAL HISTORY: CHRONIC KIDNEY DISEASE hypertension CVA FAMILY HISTORY: Family history is not contributory. SOCIAL HISTORY: - Home Living Family/Relatives REVIEW OF SYSTEMS: - Gen No Chills Fatigue No Fever - Eyes No Double Vision No itchiness - ENMT No Difficulty Swallowing - CVS Chest Discomfort No Chest Pain Fatigue No Weight Gain - Resp No Cough No Shortness of Breath - GI Continent No Abdominal Pain No Constipation No Diarrhea - Continent No Kidney Pain No Painful Urination No Urinary Urgency - MSK No Joint Pain No Muscle Cramps Stiffness - Skin No Itching No Rash No Suspicious Lesions - Neuro Coordination Difficulty No Difficulty with Concentration No Memory Loss No Seizures Weakness - Psych No Anxiety No Depression No HIV Exposure No Persistent Infections No Seasonal Allergies - Endo No Cold/Heat Intolerance No Excessive Hunger No Excessive Thirst No Excessive Urination PHYSICAL EXAM - Gen Alert and awake Lying in bed No apparent distress Oriented to: person, time, and place - Skin Sternal incision is intact No abnormalities - Eyes No abnormalities - ENMT No abnormalities - Neck No abnormalities - CVS RRR - Chest No abnormalities - Abd +bowel sounds - GI Soft Deferred - No abnormalities - Ext No significant edema - MSK 4+/5 weakness in both lower extremities. - Neuro No focal deficits - Psych No abnormalities VITAL SIGNS Temperature: 98.1 F SBP/DBP: 107/83 Pulse: 43 Resp: 14 NURSING: - Shower allowing shower ACTIVITIES OOB only with supervision FUNCTIONAL STATUS: - Self-Care A. Eating Ind Ind B. Grooming Ind sup C. Bathing Ind modA D. Dressing - Upper Ind modA E. Dressing - Lower Ind modA F. Toileting Ind modA - Sphincter Control G: Bladder control Ind Ind H: Bowel control Ind Ind - Transfers Control I. Bed/Chair/Wheelchair Ind modA J. Toilet Ind modA K. Tub/Shower Ind modA - Locomotion L. Walk/Wheelchair (W) Ind maxA M. Stairs Ind ADNO - Communication N. Comprehension (B) Ind Kamilla O. Expression (B) Ind Kamilla - Social Cognition P. Social Interaction Ind Kamilla Q. Problem Solving Ind Kamilla R. Memory Ind Kamilla - Endurance Poor - Balance Poor - Safety Awareness Poor CURRENT FUNC. DEFICITS: Transfers Control, Communication, Social Cognition, Endurance, Balance, Safety Awareness, Self-Care, and Locomotion ASSESSMENT: Pt. is a 68 yo Right-handed white male.On 12/01/2018 he was admitted to [facility] with diagnosis CABG x4.His impairment category is Cardiac 09 - Cardiac Disorders ().Pre-m orbidly, Pt. was independent/mod-I in Self-Care, Sphincter Control, Transfers Control, Communication, Social Cognition, and Locomotion; and he had good Sphincter Control.Currently, he has deficits of Tr ansfers Control, Communication, Social Cognition, Endurance, Balance, Safety Awareness, Self-Care, an d Locomotion.Pt. is now referred to [facility] for acute in-patient rehabilita tion in order to maximize patient's functional independence in activities of daily living, strength, ROM, and mobility.- Rehab Goal Patient has realistic goal of being discharged at assistance level 6-Deuce to reside at Home with Fam reynaldo/Relatives. REHAB PLAN: - Physical Therapy Gait dysfunction - to improve, our physical therapists will perform initial evaluation of pt's status upon admission and devise an individualized program for Gait Training, and Wheel Chair mobility Inability to transfer - to improve, our physical therapists will perform initial evaluation of pt's s tatus upon admission and devise an individualized program for Bed mobility Need for home safety evaluation - to improve, our physical therapists will perform initial evaluation of pt's status upon admission and devise an individualized program for Home Evaluation Need in caregiver upon discharge - to improve, our physical therapists will perform initial evaluatio n of pt's status upon admission and devise an individualized program for Caregiver Training New precaution - to improve, our physical therapists will perform initial evaluation of pt's status u rachel admission and devise an individualized program for Patient precaution education Edema - to improve, our physical therapists will perform initial evaluation of pt's status upon admi ssion and devise an individualized program for Elevation Training, and Lymphedema Therapy Poor balance - to improve, our physical therapists will perform initial evaluation of pt's status upo n admission and devise an individualized program for Balance Training Poor endurance - to improve, our physical therapists will perform initial evaluation of pt's status u rachel admission and devise an individualized program for Endurance Training Weakness - to improve, our physical therapists will perform initial evaluation of pt's status upon ad mission and devise an individualized program for Aquatic Therapy, Neuromuscular Reeducation, and Stre ngthening Achieving independence - to improve, our physical therapists will perform initial evaluation of pt's status upon admission and devise an individualized program for Community Reintegration Activities - Occupational Therapy ADL deficits - to improve, our occupation therapists will perform initial evaluation of pt's status u rachel admission and devise an individualized program for Bathing, Bed mobility, Community Reintegration , Cooking, Dressing, Eating, Fine Motor Skills, Grooming, Homemaking, Kitchen Mobility, Laundry, Cathy ent Education, Safety Awareness, Splinting - Positioning, Transfers(Toilet, Tub, Shower), and Wheel C hair Management Cognitive deficits - to improve, our occupation therapists will perform initial evaluation of pt's st atus upon admission and devise an individualized program for Cognition - orientation Need for date night caregiver - to improve, our occupation therapists will perform initial evaluation of pt's s tatus upon admission and devise an individualized program for Caregiver Training Weakness - to improve, our occupation therapists will perform initial evaluation of pt's status upon admission and devise an individualized program for Aquatic Therapy, Balance, Endurance, UE ROM, and U E strengthening MEDICAL PLAN: - Diet Type Start Regular - Diet - Liquid Texture Start Regular - Tube Feed Start N/A - Diet - Solid Texture Regular - Shower shower DISCHARGE PLAN: - Estimated Length of Stay (days) 10. - Consensus on plan Discharge plan has been discussed with primary caregiver. Patient/Family is in agreement with the jaison n. Primary caregiver is in agreement with the plan. - Patient/Family Goals Return home with assistance. - Planned Living Setting Upon Discharge Home, to live with Family/Relatives. SIGNATURE PANEL: (CDT)
--- NOTE | 2018-12-12 19:56 | PAPE ---
PATIENT: [facility] MR# [id number] REFERRING DOCTOR Josee Little EVALUATION DATE AND TIME 12/12/2018 19:54 (CDT) NAME TYLOR GUZMAN DATE OF 1950 AGE 68 PHONE N# [id number] GENDER male EVALUATING PHYSICIAN Dr. New Blunt M.D. ADMISSION DIAGNOSIS: CABG x4 SECONDARY/COMORBID DIAGNOSES TIERED: - N/A CHRONIC KIDNEY DISEASE hypertension constipation POST-ADMISSION FUNCTIONAL/MEDICAL STATUS: - Bladder Same accident frequency: Ind - No accidents in the past 7 days - Bowel Same accident frequency: Ind - No accidents in the past 7 days - Walking Same score based on distance walked: 1(<=50ft) STATUS CHANGE EVALUATION: No change in Functional or Medical Status is identified compared with Pre-Admission screening. PATIENT NEEDS CLOSE MEDICAL SUPERVISION BY A REHABILITATION PHYSICIAN FOR: Bowel and Bladder Management Coordination of Treatment Team Medical and Co-Morbidity Management Wound Care PATIENT REQUIRES 24X7 REHAB NURSING FOR MEDICAL AND FUNCTIONAL MGT. OF THE FOLLOWING DEFICITS: ADL's Ambulation Bowel and Bladder Management Cognition Communication Disease Management Medication Management Patient/Family Education Providing Safe Environment Skin Integrity Transfers PATIENT REQUIRES INTENSIVE, COORDINATED INTERDISCIPLINARY APPROACH TO REHAB: Arranging Home Equipment/Services Discharge Planning Family Intervention/Training Health And Wellness Coach/Case Management LIST OF IDENTIFIED AND POTENTIAL PROBLEMS: Alteration in leisure activities Bladder, Incontinence Blood Pressure, Hypertension/hypotension Issues Bowel, Constipation Bowel, Incontinence Infection, Actual or Potential Mobility Impaired Pain, Alteration in Comfort Self Care Deficit Skin Integrity, Actual or Potential Urinary Tract Infection (UTI), Actual or Potential RISK FOR COMPLICATIONS - Hypertension CVA. Hypotension. GA. TIA. INTERVENTIONS - Hypertension PATIENT COULD BE AT RISK FOR COMPLICATIONS FROM ADVERSE MEDICAL CONDITIONS DUE TO HIS/HER COMORBIDITI ES AND THE RIGORS OF THE INTENSIVE REHABILLITATION PROGRAM. METHODS OR INTERVENTIONS TO AVOID COMPLIC ATIONS INCLUDE: - Bleeding Assess lab values and manage abnormalities. Nursing to teach precautions for anti-coagulation therapy . Wound to be assessed every shift. - Infection Clinical staff to assess and manage the signs and symptoms of infection including fever, redness, war mth, etc. - Urinary Tract Infection - Falls Patient will be evaluated for Fall Precautions and will be placed on Fall Precautions as indicated pe r protocol. - Skin Breakdown Nursing will assess skin daily using assessment tool and will place on Skin Breakdown Precautions as indicated per protocol. - Pain Clinical staff may employ non-medication methods such as massage, distraction, decrease stimulus, etc . as needed. Clinical staff will assess patient's pain level every shift per protocol to assess and e nsure pain management effectiveness. Medications will be given and the pain level re-assessed. PRELIMINARY PLAN OF CARE: - Physical Therapy Patient needs Physical Therapy for a daily minimum of 1.5 hours at least 5 out of 7 days, to improve: Mobility, Strengthening, Transfers, Stretching, ROM, Endurance, Ability to manage stairs, Gait, and Balance. - Rehabilitation Nursing Patient requires 24x7 Rehabilitation Nursing for: Pain Issues, Identifying and preventing risk factor s, Monitoring and reporting current medical conditions, Assisting with ambulation and transfer, Radha ting with all ADL-s, Teaching patients about disease process and medications, Family teaching, Provid ing safe environment, Bowel and Bladder Issues, Skin Integrity, and Medication Management. Patient needs Health And Wellness Coach and/or Case Management for: Discharge Planning, Arranging Home Equipmen t or Services, and Family Interventions. - Dietary and Nutrition Services Patient needs Dietary and Nutrition Services for: Adequate Nutrition, Nutritional Supplements, and Nu tritional Education. - Occupational Therapy Patient needs Occupational Therapy for a daily minimum of 1.5 hours at least 5 out of 7 days, to impr ove Activities of Daily Living, including: Eating, Grooming, Bathing, Dressing, Toileting, Toilet Tra nsfers, Community Reintegration, Higher functional activities, Adaptive Equipment, Splinting, Househo ld Tasks, and Other activities as determined. POTENTIAL FUNCTIONAL GOALS FOR PATIENT TO ACHIEVE BY DISCHARGE: - Safety Precaution Patient will remain free from falls or injury at time of discharge. - Bed Mobility Patient will perform bed mobility at 4-Kamilla level of assistance. - Transfers Patient will complete transfers from bed to chair at 4-Kamilla level of assistance. - Mobility Patient will ambulate 150 ft with 4-Kamilla level of assistance with RW. PATIENT REHAB POTENTIAL Expected level of measurable improvement will be of a practical value to patient's functional capacit y or adaptations to impairments Has a viable Discharge Plan Medically appropriate; condition is sufficiently stable to participate in intensive rehab program Patient is able and expected to receive 3 hours of individualized therapy daily on at least 5 of ever y 7 days Patient's prognosis for significant practical improvement within a reasonable period of time appears Good DISCHARGE PLAN: - Estimated Length of Stay (days) 10. - Consensus on plan Discharge plan has been discussed with primary caregiver. Patient/Family is in agreement with the jaison n. Primary caregiver is in agreement with the plan. - Patient/Family Goals Return home with assistance. - Planned Living Setting Upon Discharge Home, to live with Family/Relatives. CONCLUSION ON REHABILITATION NECESSITY: I have evaluated patient's pre-admission functional status and, comparing it to the patient's post-ad mission functional status now, I conclude that the pre-admission assessment was accurate. Patient's c ondition on admission supports the medical necessity of admission to IR[facility]. It is safe to proceed with patient's therapy program. SIGNATURE PANEL: (CDT)
[2018-12-12] MEDS ORDERED: DOCUSATE NA/SENNA CONC 1 TAB PO PRN (20:22)
[2018-12-12 20:33] LABS: Urine Appearance CLEAR; Urine Bilirubin NEGATIVE (NEG); Urine Blood NEGATIVE (NEG); Urine Color YELLOW; Urine Glucose NEGATIVE (NEG); Urine Protein 1+ (NEG); Urine pH 7.5 (5.0-7.0)
[2018-12-12] MEDS: ATORVASTATIN 40 MG TAB PO SCH ×2 (21:00→22:02)
[2018-12-12 21:37] LABS: Urine Bacteria <20 /HPF (NONE SEEN); Urine Culture Reflex Order NOT NEEDED; Urine RBC NONE SEEN /HPF (NONE SEEN)
--- NOTE | 2018-12-13 02:15 | FAST ---
SHIFT START DATE/TIME: 12/12/2018 19:00 (CDT) SHIFT END DATE/TIME: 12/13/2018 07:00 (CDT) NAME TYLOR GUZMAN DATE OF : 1950 DATE OF ADMISSION: 12/12/2018 19:50 (CDT) PHONE: AGE: 68 SSN# [id number] GENDER: Male ENCOUNTER PHYSICIAN: Dr. New Blunt M.D. ADMISSION DIAGNOSIS: - Cardiac 09 - Cardiac Disorders (09) CABG x4. EATING: Activity did not occur on this shift EATING - SCORE: 0-UNK GROOMING: Activity did not occur on this shift GROOMING - SCORE: 0-UNK BATHING: Activity did not occur on this shift BATHING - SCORE: 0-UNK DRESSING - UPPER BODY: Patient is not dressing in public clothing ARTICLES SCORE Total number of steps: 0 DRESSING - UPPER BODY - SCORE: 0-UNK DRESSING - LOWER BODY: Patient is not dressing in public clothing ARTICLES SCORE Total number of steps: 0 DRESSING - LOWER BODY - SCORE: 0-UNK TOILETING: TOILETING - STEP 1: Does the patient require the assistance of a person or device, or need extra time with toileting? Yes . TOILETING - STEP 2: Does the patient require the assistance of a helper? Yes. TOILETING - STEP 3: How much assistance does the patient require from the helper? Hands-on assistance from the helper TOILETING - STEP 4: Of the 3 tasks: 1) Adjusting clothing prior to use, 2) Cleansing of perineal area, 3) Adjusting clot halley after use; How many tasks does the patient perform WITHOUT assistance of the helper? Two tasks TOILETING - SCORE: 3-MOD BLADDER MANAGEMENT: BLADDER MANAGEMENT - STEP 1: Does the patient control the bladder completely and intentionally without equipment or devices or med ications, and is always continent? No. BLADDER MANAGEMENT - STEP 2: Does the patient require the assistance of a helper? Yes. BLADDER MANAGEMENT - STEP 3: How much assistance does the patient require from the helper? Only set-up of equipment - such as plac ing it within reach of the patient or emptying a device - to maintain either satisfactory voiding pat tern or managing an external device, such as an absorbent pad, ileal device, or catheter BLADDER MANAGEMENT - SCORE: 5-SUP BOWEL MANAGEMENT: Activity did not occur on this shift BOWEL MANAGEMENT - SCORE: 7-IND TRANSFERS: BED, CHAIR, WHEELCHAIR: Activity did not occur on this shift TRANSFERS: BED, CHAIR, WHEELCHAIR - SCORE: 0-UNK TRANSFERS: TOILET: Activity did not occur on this shift TRANSFERS: TOILET - SCORE: 0-UNK TRANSFERS: SHOWER: Activity did not occur on this shift TRANSFERS: SHOWER - SCORE: 0-UNK TRANSFERS: TUB: Activity did not occur on this shift TRANSFERS: TUB - SCORE: 0-UNK LOCOMOTION: WALK: Activity did not occur on this shift LOCOMOTION: WALK - SCORE: 0-UNK LOCOMOTION: WHEELCHAIR: Activity did not occur on this shift LOCOMOTION: WHEELCHAIR - SCORE: 0-UNK COMPREHENSION: COMPREHENSION: TYPE: Both COMPREHENSION - STEP 1: Does the patient require help from a person or device, or need extra time to understand complex and a bstract ideas (such as current events, finances, discharge planning, medical issues, relationships, e tc)? Yes. COMPREHENSION - STEP 2: Does the patient require help to understand questions or statements about basic needs or ideas (such as hunger, thirst, sleep, safety, daily schedule, room location, or discomfort) half or more of the t rosibel? No. COMPREHENSION - STEP 3: How often does the patient need help to understand directions and conversation about basic needs? Les s than 10% of the time COMPREHENSION - SCORE: 5-SUP EXPRESSION EXPRESSION: TYPE: Both EXPRESSION - STEP 1: Does the patient require help from a person or device, or need extra time expressing complex and abst ract ideas (such as current events, finances, discharge planning, medical issues, relationships, etc) ? Yes. EXPRESSION - STEP 2: Does the patient require help to express basic necessities or ideas (such as hunger, thirst, sleep, s afety, daily schedule, room location, or discomfort) half or more of the time? No. EXPRESSION - STEP 3: How often does the patient need help to express directions and conversation about basic needs? Less t soares 10% of the time EXPRESSION - SCORE: 5-SUP SOCIAL INTERACTION: SOCIAL INTERACTION - STEP 1: Does the patient require a helper to interact with others in social and therapeutic situations? No. SOCIAL INTERACTION - STEP 2: Does the patient need extra time in social situations, OR does s/he interact with staff, other patien ts, and family members ONLY in structured environments, OR does s/he require medication for social in teraction? Yes, patient needs extra time SOCIAL INTERACTION - SCORE: 6-MARCELINA PROBLEM SOLVING: PROBLEM SOLVING - STEP 1: Does the patient need help from a person or device, or need extra time to solve complex problems such as managing a checking account or confronting interpersonal problems? Yes. PROBLEM SOLVING - STEP 2: Does the patient solve basic routine problems half or more of the time? Yes. PROBLEM SOLVING - STEP 3: How often does the patient need help to solve basic routine problems? Less than 10% of the time PROBLEM SOLVING - SCORE: 5-SUP MEMORY: MEMORY - STEP 1: Does the patient need help from a person or device, or need extra time to remember frequently encount ered people, daily routines, and executing requests? Yes. MEMORY - STEP 2: How often does the patient need help to remember frequently encountered people, daily routines, and e xecuting requests? Less than 10% of the time MEMORY - SCORE: 5-SUP
[2018-12-13 06:56] LABS: Absolute Lymphocytes (CBC) 1.8 K/uL (0.7-4.9); Absolute Neutrophil 8.9 K/uL (1.8-8.0); Basophils % 0.9 % (0-1.3); Eosinophils % 3.2 % (0-4.4); Monocytes % 7.9 % (3.3-12.3); RBC Red Blood Cell Count 2.94 M/uL (4.33-5.43)
[2018-12-13 07:14] LABS: Albumin 2.5 g/dL (3.4-5.0); Magnesium 2.2 mg/dL (1.8-2.4); Potassium 3.8 mmol/L (3.5-5.1); Prealbumin 12.4 mg/dL (20-40)
[2018-12-13] MEDS: PANTOPRAZOLE 40MG TABLET PO SCH (07:22)
[2018-12-13] MEDS: PROMOD 30 ML DOSE PO SCH ×2 (08:00→20:24)
[2018-12-13] MEDS: TRAMADOL HCL 50 MG TAB PO PRN ×2 (08:19→20:24)
[2018-12-13] MEDS: ONDANSETRON 4 MG (ODT) TAB PO PRN ×2 (08:19→11:55)
[2018-12-13] MEDS: MECLIZINE HCL 12.5 MG TAB PO PRN (08:19)
[2018-12-13] MEDS: METOPROLOL TAR 50 MG TAB PO SCH (08:20)
[2018-12-13] MEDS: ASPIRIN EC 81 MG TAB PO SCH (08:20)
[2018-12-13] MEDS: FE SULF/FA/VIT B COMP & C TAB PO SCH (08:20)
[2018-12-13] MEDS: FERROUS SULFATE 325 MG TAB PO SCH (08:20)
[2018-12-13] MEDS: AMLODIPINE 10 MG TAB PO SCH (08:21)
--- NOTE | 2018-12-13 10:59 | FAST ---
SHIFT START DATE/TIME: 12/13/2018 07:00 (CDT) SHIFT END DATE/TIME: 12/13/2018 19:00 (CDT) NAME TYLOR GUZMAN DATE OF : 1950 DATE OF ADMISSION: 12/12/2018 19:50 (CDT) PHONE: AGE: 68 SSN# [id number] GENDER: Male ENCOUNTER PHYSICIAN: Dr. New Blunt M.D. ADMISSION DIAGNOSIS: - Cardiac 09 - Cardiac Disorders (09) CABG x4. EATING: EATING - STEP 1: Does the patient require the assistance of a person or device, or need extra time when eating? Yes. EATING - STEP 2: Does the patient require the assistance of a helper? Yes. EATING - STEP 3: Does the patient perform half or more of the eating tasks? Yes. EATING - STEP 4: Does the patient need only supervision, cuing, coaxing OR help to apply an orthosis OR help to cut fo od, open containers, pour liquids, or butter bread? Yes. EATING - SCORE: 5-SUP GROOMING: Activity did not occur on this shift GROOMING - SCORE: 0-UNK BATHING: Activity did not occur on this shift BATHING - SCORE: 0-UNK DRESSING - UPPER BODY: Activity did not occur on this shift ARTICLES SCORE Total number of steps: 0 DRESSING - UPPER BODY - SCORE: 0-UNK DRESSING - LOWER BODY: Activity did not occur on this shift ARTICLES SCORE Total number of steps: 0 DRESSING - LOWER BODY - SCORE: 0-UNK TOILETING: TOILETING - STEP 1: Does the patient require the assistance of a person or device, or need extra time with toileting? Yes . TOILETING - STEP 2: Does the patient require the assistance of a helper? Yes. TOILETING - STEP 3: How much assistance does the patient require from the helper? Hands-on assistance from the helper TOILETING - STEP 4: Of the 3 tasks: 1) Adjusting clothing prior to use, 2) Cleansing of perineal area, 3) Adjusting clot halley after use; How many tasks does the patient perform WITHOUT assistance of the helper? Two tasks TOILETING - SCORE: 3-MOD BLADDER MANAGEMENT: BLADDER MANAGEMENT - STEP 1: Does the patient control the bladder completely and intentionally without equipment or devices or med ications, and is always continent? No. BLADDER MANAGEMENT - STEP 2: Does the patient require the assistance of a helper? No, patient requires and independently uses an a ssistive device, such as a urinal, bedpan, bedside commode, catheter, absorbent pad, or collecting de vice BLADDER MANAGEMENT - SCORE: 6-MARCELINA BOWEL MANAGEMENT: Activity did not occur on this shift BOWEL MANAGEMENT - SCORE: 7-IND TRANSFERS: BED, CHAIR, WHEELCHAIR: TRANSFERS: BED, CHAIR, WHEELCHAIR - STEP 1: Does the patient require assistance of a person or device, or need extra time with bed, chair, or whe elchair transfers? Yes. TRANSFERS: BED, CHAIR, WHEELCHAIR - STEP 2: Does the patient require the assistance of a helper? Yes. TRANSFERS: BED, CHAIR, WHEELCHAIR - STEP 3: How much assistance does the patient require from the helper? Lifting of the patient TRANSFERS: BED, CHAIR, WHEELCHAIR - STEP 4: Does the helper lift the patient ONLY up? ONLY down? Up AND Down? ONLY up. TRANSFERS: BED, CHAIR, WHEELCHAIR - SCORE: 3-MOD TRANSFERS: TOILET: Activity did not occur on this shift TRANSFERS: TOILET - SCORE: 0-UNK TRANSFERS: SHOWER: Activity did not occur on this shift TRANSFERS: SHOWER - SCORE: 0-UNK TRANSFERS: TUB: Activity did not occur on this shift TRANSFERS: TUB - SCORE: 0-UNK LOCOMOTION: WALK: Activity did not occur on this shift LOCOMOTION: WALK - SCORE: 0-UNK LOCOMOTION: WHEELCHAIR: Activity did not occur on this shift LOCOMOTION: WHEELCHAIR - SCORE: 0-UNK COMPREHENSION: COMPREHENSION: TYPE: Both COMPREHENSION - STEP 1: Does the patient require help from a person or device, or need extra time to understand complex and a bstract ideas (such as current events, finances, discharge planning, medical issues, relationships, e tc)? Yes. COMPREHENSION - STEP 2: Does the patient require help to understand questions or statements about basic needs or ideas (such as hunger, thirst, sleep, safety, daily schedule, room location, or discomfort) half or more of the t rosibel? No. COMPREHENSION - STEP 3: How often does the patient need help to understand directions and conversation about basic needs? 25% - 49% of the time COMPREHENSION - SCORE: 3-MOD EXPRESSION EXPRESSION: TYPE: Both EXPRESSION - STEP 1: Does the patient require help from a person or device, or need extra time expressing complex and abst ract ideas (such as current events, finances, discharge planning, medical issues, relationships, etc) ? Yes. EXPRESSION - STEP 2: Does the patient require help to express basic necessities or ideas (such as hunger, thirst, sleep, s afety, daily schedule, room location, or discomfort) half or more of the time? No. EXPRESSION - STEP 3: How often does the patient need help to express directions and conversation about basic needs? 25-49% of the time EXPRESSION - SCORE: 3-MOD SOCIAL INTERACTION: SOCIAL INTERACTION - STEP 1: Does the patient require a helper to interact with others in social and therapeutic situations? Yes. SOCIAL INTERACTION - STEP 2: Does the patient interact appropriately half or more of the time? Yes. SOCIAL INTERACTION - STEP 3: How often does the patient need help to interact appropriately? 25-49% of the time SOCIAL INTERACTION - SCORE: 3-MOD PROBLEM SOLVING: PROBLEM SOLVING - STEP 1: Does the patient need help from a person or device, or need extra time to solve complex problems such as managing a checking account or confronting interpersonal problems? Yes. PROBLEM SOLVING - STEP 2: Does the patient solve basic routine problems half or more of the time? Yes. PROBLEM SOLVING - STEP 3: How often does the patient need help to solve basic routine problems? 25%-49% of the time PROBLEM SOLVING - SCORE: 3-MOD MEMORY: MEMORY - STEP 1: Does the patient need help from a person or device, or need extra time to remember frequently encount ered people, daily routines, and executing requests? Yes. MEMORY - STEP 2: How often does the patient need help to remember frequently encountered people, daily routines, and e xecuting requests? More than 50% of the time MEMORY - STEP 3: Does the patient need help to remember all of the time OR does s/he not effectively recognize and rem ember? No. Patient does not need help all the time MEMORY - SCORE: 2-MAX SIGNATURE PANEL: The following modified sections: Eating - Score, Grooming - Score, Bathing - Score, Dressing - Upper Body - Score, Dressing - Lower Body - Score, Toileting - Score, Bladder Management - Score, Bowel Man agement - Score, Transfers: Bed, Chair, Wheelchair - Score, Transfers: Toilet - Score, Transfers: Dianne wer - Score, Transfers: Tub - Score, Locomotion: Walk - Score, Locomotion: Wheelchair - Score, Compre hension - Score, Expression - Score, Social Interaction - Score, Problem Solving - Score, Memory - Sc ore were [electronically] signed by Manolo Carpenter on Sat Dec 13 2018 10:57:56 GMT-0500 (Central Daylight Time)
[2018-12-13] MEDS: BISACODYL 10 MG RECTAL SUPP PR PRN (11:55)
--- NOTE | 2018-12-13 12:10 | FAST ---
ENCOUNTER DATE AND TIME: 12/13/2018 08:00 (CDT) NAME TYLOR GUZMAN DATE OF : 1950 DATE OF ADMISSION: 12/12/2018 19:50 (CDT) PHONE: AGE: 68 N# [id number] GENDER: Male ENCOUNTER PHYSICIAN: Dr. New Blunt M.D. ADMISSION DIAGNOSIS: - Cardiac 09 - Cardiac Disorders (09) CABG x4. EATING: Activity did not occur on this shift EATING - SCORE: 0-UNK GROOMING: Activity did not occur on this shift GROOMING - SCORE: 0-UNK BATHING: Activity did not occur on this shift BATHING - SCORE: 0-UNK DRESSING - UPPER BODY: Activity did not occur on this shift Patient is not dressing in public clothing ARTICLES SCORE Total number of steps: 0 DRESSING - UPPER BODY - SCORE: 0-UNK DRESSING - LOWER BODY: Activity did not occur on this shift Patient is not dressing in public clothing ARTICLES SCORE Total number of steps: 0 DRESSING - LOWER BODY - SCORE: 0-UNK TOILETING: Activity did not occur on this shift TOILETING - SCORE: 0-UNK BLADDER MANAGEMENT: Activity did not occur on this shift BLADDER MANAGEMENT - SCORE: 7-IND BOWEL MANAGEMENT: Activity did not occur on this shift BOWEL MANAGEMENT - SCORE: 7-IND TRANSFERS: BED, CHAIR, WHEELCHAIR: TRANSFERS: BED, CHAIR, WHEELCHAIR - STEP 1: Does the patient require assistance of a person or device, or need extra time with bed, chair, or whe elchair transfers? Yes. TRANSFERS: BED, CHAIR, WHEELCHAIR - STEP 2: Does the patient require the assistance of a helper? Yes. TRANSFERS: BED, CHAIR, WHEELCHAIR - STEP 3: How much assistance does the patient require from the helper? Steadying/guiding assistance TRANSFERS: BED, CHAIR, WHEELCHAIR - SCORE: 4-MIN TRANSFERS: TOILET: Activity did not occur on this shift TRANSFERS: TOILET - SCORE: 0-UNK TRANSFERS: SHOWER: Activity did not occur on this shift TRANSFERS: SHOWER - SCORE: 0-UNK TRANSFERS: TUB: Activity did not occur on this shift TRANSFERS: TUB - SCORE: 0-UNK LOCOMOTION: WALK: Activity did not occur on this shift LOCOMOTION: WALK - SCORE: 0-UNK LOCOMOTION: WALK - COMMENTS: Patient felt dizzy upon achieving standing position and requested to lay back in bed immediately due to feeling of nausea. LOCOMOTION: WHEELCHAIR: Activity did not occur on this shift LOCOMOTION: WHEELCHAIR - SCORE: 0-UNK LOCOMOTION: STAIRS: Activity did not occur on this shift LOCOMOTION: STAIRS - SCORE: 0-UNK COMPREHENSION: COMPREHENSION - SCORE: 0-UNK EXPRESSION EXPRESSION - SCORE: 0-UNK SOCIAL INTERACTION: SOCIAL INTERACTION - SCORE: 0-UNK PROBLEM SOLVING: PROBLEM SOLVING - SCORE: 0-UNK MEMORY: MEMORY - SCORE: 0-UNK SIGNATURE PANEL: The following modified sections: Transfers: Bed, Chair, Wheelchair - Score, Transfers: Toilet - Score , Locomotion: Walk - Score, Locomotion: Walk - Comments:, Locomotion: Wheelchair - Score, Locomotion: Stairs - Score were [electronically] signed by Oleksandr Jarrell on Sat Dec 13 2018 12:09:27 GMT-0500 (Central Daylight Time)
[2018-12-13] MEDS: MELATONIN 3 MG TABLET PO PRN (20:24)
[2018-12-13] MEDS: DOCUSATE NA/SENNA CONC 1 TAB PO SCH (20:24)
[2018-12-13] MEDS: ATORVASTATIN 40 MG TAB PO SCH (20:24)
--- NOTE | 2018-12-14 03:15 | FAST ---
SHIFT START DATE/TIME: 12/13/2018 19:00 (CDT) SHIFT END DATE/TIME: 12/14/2018 07:00 (CDT) NAME TYLOR GUZMAN DATE OF : 1950 DATE OF ADMISSION: 12/12/2018 19:50 (CDT) PHONE: AGE: 68 SSN# [id number] GENDER: Male ENCOUNTER PHYSICIAN: Dr. New Blunt M.D. ADMISSION DIAGNOSIS: - Cardiac 09 - Cardiac Disorders (09) CABG x4. EATING: Activity did not occur on this shift EATING - SCORE: 0-UNK GROOMING: Activity did not occur on this shift GROOMING - SCORE: 0-UNK BATHING: Activity did not occur on this shift BATHING - SCORE: 0-UNK DRESSING - UPPER BODY: Activity did not occur on this shift ARTICLES SCORE Total number of steps: 0 DRESSING - UPPER BODY - SCORE: 0-UNK DRESSING - LOWER BODY: Activity did not occur on this shift ARTICLES SCORE Total number of steps: 0 DRESSING - LOWER BODY - SCORE: 0-UNK TOILETING: Activity did not occur on this shift TOILETING - SCORE: 0-UNK BLADDER MANAGEMENT: [place] removes incontinent device (Depends, pull ups, etc.); cleans the patient after accident / inco ntinent episode; and, applies new incontinent device. BLADDER MANAGEMENT - SCORE: 1-DEP BOWEL MANAGEMENT: [place] removes incontinent device (depends, pull ups, etc.); cleans the patient after accident / inco ntinent episode; and, applies new device (depends, pull-ups, padding, etc.). BOWEL MANAGEMENT - SCORE: 1-DEP BOWEL MANAGEMENT - FREQUENCY OF ACCIDENTS: BOWEL MANAGEMENT(FA) - STEP 1: How many accidents has the patient had during the current shift? 1 TRANSFERS: BED, CHAIR, WHEELCHAIR: Patient requires more than one helper and/or the use of a mechanical lift is utilized TRANSFERS: BED, CHAIR, WHEELCHAIR - SCORE: 1-DEP TRANSFERS: TOILET: Activity did not occur on this shift TRANSFERS: TOILET - SCORE: 0-UNK TRANSFERS: SHOWER: Activity did not occur on this shift TRANSFERS: SHOWER - SCORE: 0-UNK TRANSFERS: TUB: Activity did not occur on this shift TRANSFERS: TUB - SCORE: 0-UNK LOCOMOTION: WALK: Activity did not occur on this shift LOCOMOTION: WALK - SCORE: 0-UNK LOCOMOTION: WHEELCHAIR: Activity did not occur on this shift LOCOMOTION: WHEELCHAIR - SCORE: 0-UNK COMPREHENSION: COMPREHENSION: TYPE: Both COMPREHENSION - STEP 1: Does the patient require help from a person or device, or need extra time to understand complex and a bstract ideas (such as current events, finances, discharge planning, medical issues, relationships, e tc)? Yes. COMPREHENSION - STEP 2: Does the patient require help to understand questions or statements about basic needs or ideas (such as hunger, thirst, sleep, safety, daily schedule, room location, or discomfort) half or more of the t rosibel? No. COMPREHENSION - STEP 3: How often does the patient need help to understand directions and conversation about basic needs? 10% - 24% of the time COMPREHENSION - SCORE: 4-MIN EXPRESSION EXPRESSION: TYPE: Both EXPRESSION - STEP 1: Does the patient require help from a person or device, or need extra time expressing complex and abst ract ideas (such as current events, finances, discharge planning, medical issues, relationships, etc) ? Yes. EXPRESSION - STEP 2: Does the patient require help to express basic necessities or ideas (such as hunger, thirst, sleep, s afety, daily schedule, room location, or discomfort) half or more of the time? No. EXPRESSION - STEP 3: How often does the patient need help to express directions and conversation about basic needs? 10-24% of the time EXPRESSION - SCORE: 4-MIN SOCIAL INTERACTION: SOCIAL INTERACTION - STEP 1: Does the patient require a helper to interact with others in social and therapeutic situations? No. SOCIAL INTERACTION - STEP 2: Does the patient need extra time in social situations, OR does s/he interact with staff, other patien ts, and family members ONLY in structured environments, OR does s/he require medication for social in teraction? Yes, patient needs extra time SOCIAL INTERACTION - SCORE: 6-MARCELINA PROBLEM SOLVING: Patient requires bed/chair alarms due to attempts to get up unassisted when helper is needed. PROBLEM SOLVING - STEP 1: How often do the bed/chair alarms go off? Occasionally - the alarms go off about 25% or less PROBLEM SOLVING - SCORE: 4-MIN MEMORY: MEMORY - STEP 1: How often do the bed/chair alarms go off? Occasionally - the alarms go off about 25% of the time or l ess MEMORY - SCORE: 4-MIN SIGNATURE PANEL: The following modified sections: Eating - Score, Grooming - Score, Bathing - Score, Dressing - Upper Body - Score, Dressing - Lower Body - Score, Toileting - Score, Bladder Management - Score, Bowel Man agement - Score, Transfers: Bed, Chair, Wheelchair - Score, Transfers: Toilet - Score, Transfers: Dianne wer - Score, Transfers: Tub - Score, Locomotion: Walk - Score, Locomotion: Wheelchair - Score, Compre hension - Score, Expression - Score, Social Interaction - Score, Problem Solving - Score, Memory - Sc ore were [electronically] signed by Elizabeth Alejandre CNA on SatDec 14 2018 03:15:11 T-0500 ([place] Da ylight Time)
[2018-12-14] MEDS: PANTOPRAZOLE 40MG TABLET PO SCH (07:14)
[2018-12-14] MEDS: FE SULF/FA/VIT B COMP & C TAB PO SCH (09:00)
[2018-12-14] MEDS: AMLODIPINE 10 MG TAB PO SCH (09:00)
[2018-12-14] MEDS: METOPROLOL TAR 50 MG TAB PO SCH (09:01)
[2018-12-14] MEDS: ASPIRIN EC 81 MG TAB PO SCH (09:02)
[2018-12-14] MEDS: PROMOD 30 ML DOSE PO SCH ×2 (09:02→19:47)
[2018-12-14] MEDS: FERROUS SULFATE 325 MG TAB PO SCH (09:02)
--- NOTE | 2018-12-14 10:24 | FAST ---
SHIFT START DATE/TIME: 12/14/2018 07:00 (CDT) SHIFT END DATE/TIME: 12/14/2018 19:00 (CDT) NAME TYLOR GUZMAN DATE OF : 1950 DATE OF ADMISSION: 12/12/2018 19:50 (CDT) PHONE: AGE: 68 N# [id number] GENDER: Male ENCOUNTER PHYSICIAN: Dr. New Blunt M.D. ADMISSION DIAGNOSIS: - Cardiac 09 - Cardiac Disorders (09) CABG x4. EATING: EATING - STEP 1: Does the patient require the assistance of a person or device, or need extra time when eating? Yes. EATING - STEP 2: Does the patient require the assistance of a helper? Yes. EATING - STEP 3: Does the patient perform half or more of the eating tasks? Yes. EATING - STEP 4: Does the patient need only supervision, cuing, coaxing OR help to apply an orthosis OR help to cut fo od, open containers, pour liquids, or butter bread? Yes. EATING - SCORE: 5-SUP GROOMING: Comb/brush hair Oral care GROOMING - STEP 1: Does the patient require the assistance of a person or device, or need extra time when grooming? Yes. GROOMING - STEP 2: Does the patient require the assistance of a helper? Yes. GROOMING - STEP 3: How much assistance does the patient require from the helper? Only prior equipment preparation/set up from the helper GROOMING - SCORE: 5-SUP BATHING: Activity did not occur on this shift BATHING - SCORE: 0-UNK DRESSING - UPPER BODY: Activity did not occur on this shift ARTICLES SCORE Total number of steps: 0 DRESSING - UPPER BODY - SCORE: 0-UNK DRESSING - LOWER BODY: Activity did not occur on this shift ARTICLES SCORE Total number of steps: 0 DRESSING - LOWER BODY - SCORE: 0-UNK TOILETING: TOILETING - STEP 1: Does the patient require the assistance of a person or device, or need extra time with toileting? Yes . TOILETING - STEP 2: Does the patient require the assistance of a helper? Yes. TOILETING - STEP 3: How much assistance does the patient require from the helper? Hands-on assistance from the helper TOILETING - STEP 4: Of the 3 tasks: 1) Adjusting clothing prior to use, 2) Cleansing of perineal area, 3) Adjusting clot halley after use; How many tasks does the patient perform WITHOUT assistance of the helper? Two tasks TOILETING - SCORE: 3-MOD BLADDER MANAGEMENT: BLADDER MANAGEMENT - STEP 1: Does the patient control the bladder completely and intentionally without equipment or devices or med ications, and is always continent? No. BLADDER MANAGEMENT - STEP 2: Does the patient require the assistance of a helper? No, patient requires and independently uses an a ssistive device, such as a urinal, bedpan, bedside commode, catheter, absorbent pad, or collecting de vice BLADDER MANAGEMENT - SCORE: 6-MARCELINA BOWEL MANAGEMENT: Activity did not occur on this shift BOWEL MANAGEMENT - SCORE: 7-IND TRANSFERS: BED, CHAIR, WHEELCHAIR: TRANSFERS: BED, CHAIR, WHEELCHAIR - STEP 1: Does the patient require assistance of a person or device, or need extra time with bed, chair, or whe elchair transfers? Yes. TRANSFERS: BED, CHAIR, WHEELCHAIR - STEP 2: Does the patient require the assistance of a helper? Yes. TRANSFERS: BED, CHAIR, WHEELCHAIR - STEP 3: How much assistance does the patient require from the helper? Lifting of the patient TRANSFERS: BED, CHAIR, WHEELCHAIR - STEP 4: Does the helper lift the patient ONLY up? ONLY down? Up AND Down? ONLY up. TRANSFERS: BED, CHAIR, WHEELCHAIR - SCORE: 3-MOD TRANSFERS: TOILET: TRANSFERS: TOILET - STEP 1: Does the patient require the assistance of a person or device, or need extra time with toilet transfe rs? Yes. TRANSFERS: TOILET - STEP 2: Does the patient require the assistance of a helper? Yes. TRANSFERS: TOILET - STEP 3: How much assistance does the patient require from the helper? Patient performs half or more of the tr ansferring tasks TRANSFERS: TOILET - STEP 4: Does the patient need only incidental help such as contact guard or steadying during toilet transfer? No. Patient needs more than incidental help TRANSFERS: TOILET - SCORE: 3-MOD TRANSFERS: SHOWER: Activity did not occur on this shift TRANSFERS: SHOWER - SCORE: 0-UNK TRANSFERS: TUB: Activity did not occur on this shift TRANSFERS: TUB - SCORE: 0-UNK LOCOMOTION: WALK: Activity did not occur on this shift LOCOMOTION: WALK - SCORE: 0-UNK LOCOMOTION: WHEELCHAIR: Activity did not occur on this shift LOCOMOTION: WHEELCHAIR - SCORE: 0-UNK COMPREHENSION: COMPREHENSION: TYPE: Both COMPREHENSION - STEP 1: Does the patient require help from a person or device, or need extra time to understand complex and a bstract ideas (such as current events, finances, discharge planning, medical issues, relationships, e tc)? Yes. COMPREHENSION - STEP 2: Does the patient require help to understand questions or statements about basic needs or ideas (such as hunger, thirst, sleep, safety, daily schedule, room location, or discomfort) half or more of the t rosibel? No. COMPREHENSION - STEP 3: How often does the patient need help to understand directions and conversation about basic needs? 25% - 49% of the time COMPREHENSION - SCORE: 3-MOD EXPRESSION EXPRESSION: TYPE: Both EXPRESSION - STEP 1: Does the patient require help from a person or device, or need extra time expressing complex and abst ract ideas (such as current events, finances, discharge planning, medical issues, relationships, etc) ? Yes. EXPRESSION - STEP 2: Does the patient require help to express basic necessities or ideas (such as hunger, thirst, sleep, s afety, daily schedule, room location, or discomfort) half or more of the time? No. EXPRESSION - STEP 3: How often does the patient need help to express directions and conversation about basic needs? 25-49% of the time EXPRESSION - SCORE: 3-MOD SOCIAL INTERACTION: SOCIAL INTERACTION - STEP 1: Does the patient require a helper to interact with others in social and therapeutic situations? Yes. SOCIAL INTERACTION - STEP 2: Does the patient interact appropriately half or more of the time? Yes. SOCIAL INTERACTION - STEP 3: How often does the patient need help to interact appropriately? Less than 10% of the time SOCIAL INTERACTION - SCORE: 5-SUP PROBLEM SOLVING: PROBLEM SOLVING - STEP 1: Does the patient need help from a person or device, or need extra time to solve complex problems such as managing a checking account or confronting interpersonal problems? Yes. PROBLEM SOLVING - STEP 2: Does the patient solve basic routine problems half or more of the time? Yes. PROBLEM SOLVING - STEP 3: How often does the patient need help to solve basic routine problems? 25%-49% of the time PROBLEM SOLVING - SCORE: 3-MOD MEMORY: MEMORY - STEP 1: Does the patient need help from a person or device, or need extra time to remember frequently encount ered people, daily routines, and executing requests? Yes. MEMORY - STEP 2: How often does the patient need help to remember frequently encountered people, daily routines, and e xecuting requests? 25% - 49% of the time MEMORY - SCORE: 3-MOD SIGNATURE PANEL: The following modified sections: Eating - Score, Grooming - Score, Bathing - Score, Dressing - Upper Body - Score, Dressing - Lower Body - Score, Toileting - Score, Bladder Management - Score, Bowel Man agement - Score, Transfers: Bed, Chair, Wheelchair - Score, Transfers: Toilet - Score, Transfers: Dianne wer - Score, Transfers: Tub - Score, Locomotion: Walk - Score, Locomotion: Wheelchair - Score, Compre hension - Score, Expression - Score, Social Interaction - Score, Problem Solving - Score, Memory - Sc ore were [electronically] signed by Manolo Carpenter on SatDec 14 2018 10:24:31 T-0500 (Central Daylight Time)
[2018-12-14] MEDS: TRAMADOL HCL 50 MG TAB PO PRN (19:48)
[2018-12-14] MEDS: ATORVASTATIN 40 MG TAB PO SCH (20:01)
[2018-12-14] MEDS: DOCUSATE NA/SENNA CONC 1 TAB PO SCH (20:01)
[2018-12-14] MEDS: MELATONIN 3 MG TABLET PO PRN (20:02)
--- NOTE | 2018-12-15 01:05 | FAST ---
SHIFT START DATE/TIME: 12/14/2018 19:00 (CDT) SHIFT END DATE/TIME: 12/15/2018 07:00 (CDT) NAME TYLOR GUZMAN DATE OF : 1950 DATE OF ADMISSION: 12/12/2018 19:50 (CDT) PHONE: AGE: 68 SSN# [id number] GENDER: Male ENCOUNTER PHYSICIAN: Dr. New Blunt M.D. ADMISSION DIAGNOSIS: - Cardiac 09 - Cardiac Disorders (09) CABG x4. EATING: Activity did not occur on this shift EATING - SCORE: 0-UNK GROOMING: Activity did not occur on this shift GROOMING - SCORE: 0-UNK BATHING: Activity did not occur on this shift BATHING - SCORE: 0-UNK DRESSING - UPPER BODY: Patient is not dressing in public clothing ARTICLES SCORE Total number of steps: 0 DRESSING - UPPER BODY - SCORE: 0-UNK DRESSING - LOWER BODY: Patient is not dressing in public clothing ARTICLES SCORE Total number of steps: 0 DRESSING - LOWER BODY - SCORE: 0-UNK TOILETING: Activity did not occur on this shift TOILETING - SCORE: 0-UNK BLADDER MANAGEMENT: Aurora removes incontinent device (Depends, pull ups, etc.); cleans the patient after accident / inco ntinent episode; and, applies new incontinent device. BLADDER MANAGEMENT - SCORE: 1-DEP BLADDER MANAGEMENT - FREQUENCY OF ACCIDENTS: BLADDER MANAGEMENT(FA) - STEP 1: How many accidents has the patient had during the current shift? 1 BOWEL MANAGEMENT: Aurora removes incontinent device (depends, pull ups, etc.); cleans the patient after accident / inco ntinent episode; and, applies new device (depends, pull-ups, padding, etc.). BOWEL MANAGEMENT - SCORE: 1-DEP TRANSFERS: BED, CHAIR, WHEELCHAIR: Activity did not occur on this shift TRANSFERS: BED, CHAIR, WHEELCHAIR - SCORE: 0-UNK TRANSFERS: TOILET: Activity did not occur on this shift TRANSFERS: TOILET - SCORE: 0-UNK TRANSFERS: SHOWER: Activity did not occur on this shift TRANSFERS: SHOWER - SCORE: 0-UNK TRANSFERS: TUB: Activity did not occur on this shift TRANSFERS: TUB - SCORE: 0-UNK LOCOMOTION: WALK: Activity did not occur on this shift LOCOMOTION: WALK - SCORE: 0-UNK LOCOMOTION: WHEELCHAIR: Activity did not occur on this shift LOCOMOTION: WHEELCHAIR - SCORE: 0-UNK COMPREHENSION: COMPREHENSION: TYPE: Both COMPREHENSION - STEP 1: Does the patient require help from a person or device, or need extra time to understand complex and a bstract ideas (such as current events, finances, discharge planning, medical issues, relationships, e tc)? Yes. COMPREHENSION - STEP 2: Does the patient require help to understand questions or statements about basic needs or ideas (such as hunger, thirst, sleep, safety, daily schedule, room location, or discomfort) half or more of the t rosibel? No. COMPREHENSION - STEP 3: How often does the patient need help to understand directions and conversation about basic needs? 25% - 49% of the time COMPREHENSION - SCORE: 3-MOD EXPRESSION EXPRESSION: TYPE: Both EXPRESSION - STEP 1: Does the patient require help from a person or device, or need extra time expressing complex and abst ract ideas (such as current events, finances, discharge planning, medical issues, relationships, etc) ? Yes. EXPRESSION - STEP 2: Does the patient require help to express basic necessities or ideas (such as hunger, thirst, sleep, s afety, daily schedule, room location, or discomfort) half or more of the time? No. EXPRESSION - STEP 3: How often does the patient need help to express directions and conversation about basic needs? 25-49% of the time EXPRESSION - SCORE: 3-MOD SOCIAL INTERACTION: SOCIAL INTERACTION - STEP 1: Does the patient require a helper to interact with others in social and therapeutic situations? No. SOCIAL INTERACTION - STEP 2: Does the patient need extra time in social situations, OR does s/he interact with staff, other patien ts, and family members ONLY in structured environments, OR does s/he require medication for social in teraction? Yes, patient needs extra time SOCIAL INTERACTION - SCORE: 6-MARCELINA PROBLEM SOLVING: Patient requires bed/chair alarms due to attempts to get up unassisted when helper is needed. PROBLEM SOLVING - STEP 1: How often do the bed/chair alarms go off? Occasionally - the alarms go off about 25% or less PROBLEM SOLVING - SCORE: 4-MIN MEMORY: MEMORY - STEP 1: How often do the bed/chair alarms go off? Occasionally - the alarms go off about 25% of the time or l ess MEMORY - SCORE: 4-MIN SIGNATURE PANEL: The following modified sections: Eating - Score, Grooming - Score, Bathing - Score, Dressing - Upper Body - Score, Dressing - Lower Body - Score, Toileting - Score, Bladder Management - Score, Bowel Man agement - Score, Transfers: Bed, Chair, Wheelchair - Score, Transfers: Toilet - Score, Transfers: Dianne wer - Score, Transfers: Tub - Score, Locomotion: Walk - Score, Locomotion: Wheelchair - Score, Compre hension - Score, Expression - Score, Social Interaction - Score, Problem Solving - Score, Memory - Sc ore were [electronically] signed by Elizabeth Alejandre CNA on SatDec 15 2018 01:05:06 T-0500 ([place] Da [facility] Time)
[2018-12-15] MEDS: PANTOPRAZOLE 40MG TABLET PO SCH (06:55)
[2018-12-15] MEDS: AMLODIPINE 10 MG TAB PO SCH (08:00)
[2018-12-15] MEDS: METOPROLOL TAR 50 MG TAB PO SCH (08:00)
[2018-12-15] MEDS: PROMOD 30 ML DOSE PO SCH ×2 (08:00→20:57)
[2018-12-15] MEDS: FE SULF/FA/VIT B COMP & C TAB PO SCH (09:04)
[2018-12-15] MEDS: TRAMADOL HCL 50 MG TAB PO PRN ×2 (09:04→20:55)
[2018-12-15] MEDS: ASPIRIN EC 81 MG TAB PO SCH (09:04)
[2018-12-15] MEDS: FERROUS SULFATE 325 MG TAB PO SCH (09:04)
[2018-12-15] MEDS: ONDANSETRON 4 MG (ODT) TAB PO PRN (09:11)
[2018-12-15 10:46] LABS: Absolute Lymphocytes (CBC) 1.6 K/uL (0.7-4.9); Absolute Monocytes 0.9 K/uL (0.1-1.3); Absolute Neutrophil 10.8 K/uL (1.8-8.0); Basophils % 1.5 % (0-1.3); Eosinophils % 2.2 % (0-4.4); Hematocrit 33.7 % (39.6-49.0); Lymphocytes % 11.6 % (15.3-44.8); MPV 9.9 fL (7.6-11.3); Monocytes % 6.3 % (3.3-12.3); RBC Red Blood Cell Count 3.49 M/uL (4.33-5.43)
[2018-12-15 12:17] LABS: Bilirubin Direct 0.3 mg/dL (0-0.2); Bilirubin Total 1.1 mg/dL (0.2-1.0)
--- NOTE | 2018-12-15 12:18 | RAD REPORT ---
EXAM DESCRIPTION: CT - Ct Stroke Brain Wo Cont - 12/15/2018 12:07 pm CLINICAL HISTORY: Acute stroke CLINICAL HISTORY: CT head December 01 TECHNIQUE: Axial 5 millimeter thick images of the head were obtained without IV contrast. All CT scans are performed using dose optimization technique as appropriate and may include automated exposure control or mA/KV adjustment according to patient size. FINDINGS: No intracranial hemorrhage is present. There is an approximately 4 centimeter wedge shaped area of diminished attenuation in the inferior left cerebellum. This is new from December 01 imaging. N o midline shift or significant mass effect. Fourth ventricle is unremarkable. No cerebral cortical edema or sulcal effacement. No acute cerebral cortical based infarction identifi able. Patient has significant for age chronic ischemic change that can mask nonhemorrhagic white maru er CVA. Atrophy is mild to moderate. No extra-axial fluid collections. Shah matter-white matter diff erentiation is preserved. No globe or orbital content abnormality seen. Visualized portions of the mastoid air cells, paranasal sinuses, and orbits are unremarkable. Findings telephoned to Dr. Blunt 12:12 p.m. 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 Cerebellum infarction changes do not cause significant mass effect or midline shift. Fourth ventricle is normal. No intracranial hemorrhage. Significant atrophy and chronic ischemic change with chronic ischemic change potentially masking nonh emorrhagic white matter CVA.
--- NOTE | 2018-12-15 12:43 | RAD REPORT ---
EXAM DESCRIPTION: RAD - Chest Single View - 12/15/2018 12:34 pm CLINICAL HISTORY: R/O Pneumonia Chest pain. COMPARISON: Chest Single View dated 12/01/2018; Chest Single View dated 08/24/2018; Chest Single View dated 06/13/2018; Abdomen 1 View (KUB) dated 01/23/2018 FINDINGS: Portable technique limits examination quality. The lungs are grossly clear. The heart is normal in size. Prominent tortuous thoracic aorta is seen w ith sternotomy wires. IMPRESSION: No acute intrathoracic process suspected.
--- NOTE | 2018-12-15 12:48 | RAD REPORT ---
EXAM DESCRIPTION: RAD - Abdomen 1 View (KUB) - 12/15/2018 12:34 pm CLINICAL HISTORY: r/o obstruction Pain COMPARISON: Abdomen 1 View (KUB) dated 01/23/2018 FINDINGS: The bowel gas pattern is non-obstructive. No evidence of free air or pneumatosis. Severe f ecal retention is seen in the colon with evidence of a large amount of stool is impacted in the rectu m. Moderate dextroscoliosis of the lumbar spine. IMPRESSION: Rectal fecal impaction is suspected with very significant fecal retention throughout the colon.
--- NOTE | 2018-12-15 14:37 | RAD REPORT ---
EXAM DESCRIPTION: RAD - Barium Swallow Modified - 12/15/2018 2:24 pm CLINICAL HISTORY: Dysphagia COMPARISON: None. TECHNIQUE: The patient was given liquid, semi-solid and solid forms of barium. Lateral view fluorosc opic imaging was performed in conjunction with speech pathology service. FINDINGS: Cineloop acquisitions: 10 Fluoro time: 2 minutes 10 seconds Aspiration was observed without triggering cough reflex. Contrast was seen to mildly pool in the vall eculae and piriform sinus. Patient was also noted to be nauseous and vomited during the examination. Esophageal stasis was present along with reflux. IMPRESSION: Aspiration was observed. Findings are detailed above and on speech pathology report.
--- NOTE | 2018-12-15 15:03 | FAST ---
ENCOUNTER DATE AND TIME: 12/15/2018 08:00 (CDT) NAME TYLOR GUZMAN DATE OF : 1950 DATE OF ADMISSION: 12/12/2018 19:50 (CDT) PHONE: AGE: 68 N# [id number] GENDER: Male ENCOUNTER PHYSICIAN: Dr. New Blunt M.D. ADMISSION DIAGNOSIS: - Cardiac 09 - Cardiac Disorders (09) CABG x4. EATING: Activity did not occur on this shift EATING - SCORE: 0-UNK GROOMING: Activity did not occur on this shift GROOMING - SCORE: 0-UNK BATHING: Activity did not occur on this shift BATHING - SCORE: 0-UNK DRESSING - UPPER BODY: Activity did not occur on this shift Patient is not dressing in public clothing ARTICLES SCORE Total number of steps: 0 DRESSING - UPPER BODY - SCORE: 0-UNK DRESSING - LOWER BODY: Activity did not occur on this shift Patient is not dressing in public clothing ARTICLES SCORE Total number of steps: 0 DRESSING - LOWER BODY - SCORE: 0-UNK TOILETING: Activity did not occur on this shift TOILETING - SCORE: 0-UNK BLADDER MANAGEMENT: Activity did not occur on this shift BLADDER MANAGEMENT - SCORE: 7-IND BOWEL MANAGEMENT: Activity did not occur on this shift BOWEL MANAGEMENT - SCORE: 7-IND TRANSFERS: BED, CHAIR, WHEELCHAIR: TRANSFERS: BED, CHAIR, WHEELCHAIR - STEP 1: Does the patient require assistance of a person or device, or need extra time with bed, chair, or whe elchair transfers? Yes. TRANSFERS: BED, CHAIR, WHEELCHAIR - STEP 2: Does the patient require the assistance of a helper? Yes. TRANSFERS: BED, CHAIR, WHEELCHAIR - STEP 3: How much assistance does the patient require from the helper? Lifting of the patient TRANSFERS: BED, CHAIR, WHEELCHAIR - STEP 4: Does the helper lift the patient ONLY up? ONLY down? Up AND Down? ONLY up. TRANSFERS: BED, CHAIR, WHEELCHAIR - SCORE: 3-MOD TRANSFERS: TOILET: Activity did not occur on this shift TRANSFERS: TOILET - SCORE: 0-UNK TRANSFERS: SHOWER: Activity did not occur on this shift TRANSFERS: SHOWER - SCORE: 0-UNK TRANSFERS: TUB: Activity did not occur on this shift TRANSFERS: TUB - SCORE: 0-UNK LOCOMOTION: WALK: Patient walks less than 50 feet LOCOMOTION: WALK - SCORE: 1-DEP LOCOMOTION: WHEELCHAIR: LOCOMOTION: WHEELCHAIR - STEP 1: Does the patient need help to go 150 feet in a wheelchair? Yes. LOCOMOTION: WHEELCHAIR - STEP 2: How much assistance does the patient need from the helper? Only supervision, cuing, or coaxing LOCOMOTION: WHEELCHAIR - SCORE: 5-SUP LOCOMOTION: STAIRS: Activity did not occur on this shift LOCOMOTION: STAIRS - SCORE: 0-UNK COMPREHENSION: COMPREHENSION - SCORE: 0-UNK EXPRESSION EXPRESSION - SCORE: 0-UNK SOCIAL INTERACTION: SOCIAL INTERACTION - SCORE: 0-UNK PROBLEM SOLVING: PROBLEM SOLVING - SCORE: 0-UNK MEMORY: MEMORY - SCORE: 0-UNK SIGNATURE PANEL: The following modified sections: Transfers: Bed, Chair, Wheelchair - Score, Transfers: Toilet - Score , Locomotion: Walk - Score, Locomotion: Wheelchair - Score, Locomotion: Stairs - Score were [electron ically] signed by Des Mooney PT on SatDec 15 2018 15:02:41 T-0500 ([place] Daylight Time)
--- NOTE | 2018-12-15 15:16 | FAST ---
ENCOUNTER DATE AND TIME: 12/15/2018 08:00 (CDT) NAME TYLOR GUZMAN DATE OF : 1950 DATE OF ADMISSION: 12/12/2018 19:50 (CDT) PHONE: AGE: 68 N# [id number] GENDER: Male ENCOUNTER PHYSICIAN: Dr. New Blunt M.D. ADMISSION DIAGNOSIS: - Cardiac 09 - Cardiac Disorders (09) CABG x4. EATING: Activity did not occur on this shift EATING - SCORE: 0-UNK GROOMING: Wash, rinse, and dry face Wash, rinse, and dry hands GROOMING - STEP 1: Does the patient require the assistance of a person or device, or need extra time when grooming? Yes. GROOMING - STEP 2: Does the patient require the assistance of a helper? Yes. GROOMING - STEP 3: How much assistance does the patient require from the helper? Cuing, coaxing, instructions, or encour agement for completion of grooming GROOMING - SCORE: 5-SUP BATHING: Abdomen Buttocks Chest Left arm Left lower leg and foot Left upper leg Perineal area Right arm Right lower leg and foot Right upper leg BATHING - STEP 1: Does the patient require the assistance of a person or device, or need extra time when bathing? Yes. BATHING - STEP 2: Does the patient require the assistance of a helper? Yes. BATHING - STEP 3: How much assistance does the patient require from the helper? More than just incidental help BATHING - STEP 4: What percent of the body parts did the patient bathe WITHOUT the helper? Half or more of the body par ts BATHING - SCORE: 3-MOD DRESSING - UPPER BODY: T-shirt/pullover shirt (four steps) ARTICLES SCORE Total number of steps: 4 DRESSING - UPPER BODY - STEP 1: Does the patient require help from a person or device, or need extra time when dressing above the ankit st? Yes. DRESSING - UPPER BODY - STEP 2: Does the patient require the assistance of a helper? Yes. DRESSING - UPPER BODY - STEP 3: Does the helper touch the patient while dressing? Yes. DRESSING - UPPER BODY - STEP 4: How many of the total steps does the patient complete on his/her own? 1 DRESSING - UPPER BODY - STEP 5: Does Patient require total assistance for dressing above the waist such as the helper holding clothin g and performing basically all the activities? No. DRESSING - UPPER BODY - SCORE: 2-MAX DRESSING - LOWER BODY: Sock - Left foot (one step) Sock - Right foot (one step) Tied or buckled shoe - Left foot (two steps) Tied or buckled shoe - Right foot (two steps) Underwear (three steps) Zippered pants (four steps) ARTICLES SCORE Total number of steps: 13 DRESSING - LOWER BODY - STEP 1: Does the patient require help from a person or device, or need extra time when dressing below the ankit st? Yes. DRESSING - LOWER BODY - STEP 2: Does the patient require the assistance of a helper? Yes. DRESSING - LOWER BODY - STEP 3: Does the helper touch the patient while dressing? Yes. DRESSING - LOWER BODY - STEP 4: How many of the total steps does the patient complete on his/her own? 7 DRESSING - LOWER BODY - SCORE: 3-MOD TOILETING: Activity did not occur on this shift TOILETING - SCORE: 0-UNK BLADDER MANAGEMENT: Activity did not occur on this shift BLADDER MANAGEMENT - SCORE: 7-IND BOWEL MANAGEMENT: Activity did not occur on this shift BOWEL MANAGEMENT - SCORE: 7-IND TRANSFERS: BED, CHAIR, WHEELCHAIR: Activity did not occur on this shift TRANSFERS: BED, CHAIR, WHEELCHAIR - SCORE: 0-UNK TRANSFERS: TOILET: Activity did not occur on this shift TRANSFERS: TOILET - SCORE: 0-UNK TRANSFERS: SHOWER: TRANSFERS: SHOWER - STEP 1: Does the patient require the assistance of a person or device, or need extra time with shower transfe rs? Yes. TRANSFERS: SHOWER - STEP 2: Does the patient require the assistance of a helper? Yes. TRANSFERS: SHOWER - STEP 3: How much assistance does the patient require from the helper? More than incidental help TRANSFERS: SHOWER - STEP 4: How much more help does the patient require from the helper? Lifting the patient up AND down from the wheelchair onto the shower chair TRANSFERS: SHOWER - SCORE: 2-MAX TRANSFERS: TUB: Activity did not occur on this shift TRANSFERS: TUB - SCORE: 0-UNK LOCOMOTION: WALK: Activity did not occur on this shift LOCOMOTION: WALK - SCORE: 0-UNK LOCOMOTION: WHEELCHAIR: Activity did not occur on this shift LOCOMOTION: WHEELCHAIR - SCORE: 0-UNK LOCOMOTION: STAIRS: Activity did not occur on this shift LOCOMOTION: STAIRS - SCORE: 0-UNK COMPREHENSION: COMPREHENSION: TYPE: Both COMPREHENSION - STEP 1: Does the patient require help from a person or device, or need extra time to understand complex and a bstract ideas (such as current events, finances, discharge planning, medical issues, relationships, e tc)? Yes. COMPREHENSION - STEP 2: Does the patient require help to understand questions or statements about basic needs or ideas (such as hunger, thirst, sleep, safety, daily schedule, room location, or discomfort) half or more of the t rosibel? Yes. COMPREHENSION - STEP 3: Is the patient basically able to understand and respond appropriately and consistently? Yes. COMPREHENSION - SCORE: 2-MAX EXPRESSION EXPRESSION: TYPE: Both EXPRESSION - STEP 1: Does the patient require help from a person or device, or need extra time expressing complex and abst ract ideas (such as current events, finances, discharge planning, medical issues, relationships, etc) ? Yes. EXPRESSION - STEP 2: Does the patient require help to express basic necessities or ideas (such as hunger, thirst, sleep, s afety, daily schedule, room location, or discomfort) half or more of the time? Yes. EXPRESSION - STEP 3: Is the patient basically unable to express or does s/he express inappropriately or inconsistently abdullahi pite prompting? No. EXPRESSION - SCORE: 2-MAX SOCIAL INTERACTION: SOCIAL INTERACTION - STEP 1: Does the patient require a helper to interact with others in social and therapeutic situations? Yes. SOCIAL INTERACTION - STEP 2: Does the patient interact appropriately half or more of the time? Yes. SOCIAL INTERACTION - STEP 3: How often does the patient need help to interact appropriately? 25-49% of the time SOCIAL INTERACTION - SCORE: 3-MOD PROBLEM SOLVING: PROBLEM SOLVING - STEP 1: Does the patient need help from a person or device, or need extra time to solve complex problems such as managing a checking account or confronting interpersonal problems? Yes. PROBLEM SOLVING - STEP 2: Does the patient solve basic routine problems half or more of the time? No. PROBLEM SOLVING - STEP 3: Does the patient need help to solve problems all the time or is s/he unable to solve problems? No. Pa tient can sometimes solve problems PROBLEM SOLVING - SCORE: 2-MAX MEMORY: MEMORY - STEP 1: Does the patient need help from a person or device, or need extra time to remember frequently encount ered people, daily routines, and executing requests? Yes. MEMORY - STEP 2: How often does the patient need help to remember frequently encountered people, daily routines, and e xecuting requests? More than 50% of the time MEMORY - STEP 3: Does the patient need help to remember all of the time OR does s/he not effectively recognize and rem ember? No. Patient does not need help all the time MEMORY - SCORE: 2-MAX SIGNATURE PANEL: The following modified sections: Eating - Score, Grooming - Score, Bathing - Score, Dressing - Upper Body - Score, Dressing - Lower Body - Score, Toileting - Score, Transfers: Bed, Chair, Wheelchair - S core, Transfers: Toilet - Score, Transfers: Tub - Score, Transfers: Shower - Score, Comprehension - S core, Expression - Score, Social Interaction - Score, Problem Solving - Score, Memory - Score were [e lectronically] signed by Alissa Carlos OT on SatDec 15 2018 15:15:25 T-0500 ([facility])
[2018-12-15] MEDS ORDERED: FLEET ENEMA ADULT PR ONE (17:16)
--- NOTE | 2018-12-15 17:26 | R.PN ---
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 SUBJECTIVE: Pt denied any Shortness of Breath. Pt denied any depression. Increased confusion and incoordination today with head CT scan showing acute left inferior cerebellar stroke. He has ongoing nausea with chronic constipation. KUB shows severe fecal retention. Will do f leets enema and disimpaction. WBC 13.8 with 78.4% neutrophils, urinalysis is unremarkable. Hgb 11.2, increased BUN at 21 and Engineering Mechanic at 1.43, low prealbumin at 12.4. Labs suggest dehydration and will increase free water intake to 6-8 gl asses daily. EKG shows sinus arrhythmia. Barium swallow shows moderate impairment with significant esophageal stasis and reflux. GI consult re commended. Self-propelled wheelchair 250' with minimum assistance. Ambulated only 10' with contact guard assista nce without an assistive device. He fatigues quickly. VITAL SIGNS Temperature: 98.1 F SBP/DBP: 115/75 Pulse: 72 Resp: 16 MEDICATION ALLERGIES: No Known Drug Allergies (NKDA) ENVIRONMENTAL ALLERGIES: - Substance Allergies None Known - Other Allergies None Known NURSING: - Shower allowing shower ACTIVITIES OOB only with supervision THERAPIES: - Occupational Therapy Evaluate and Treat. - Physical Therapy Evaluate and Treat. PHYSICAL EXAM - Gen Alert and awake Lying in bed No apparent distress Oriented to: person, time, and place - Skin Sternal incision is intact No abnormalities - Eyes No abnormalities - ENMT No abnormalities - Neck No abnormalities - CVS RRR - Chest No abnormalities - Abd +bowel sounds - GI Soft Deferred - No abnormalities - Ext No significant edema - MSK 4+/5 weakness in both lower extremities. - Neuro No focal deficits - Psych No abnormalities ASSESSMENT: Pt. is a 68 yo Right-handed white male.On 12/01/2018 he was admitted to [facility] with diagnosis CABG x4.His impairment category is Cardiac 09 - Cardiac Disorders ().Pre-m orbidly, Pt. was independent/mod-I in Self-Care, Sphincter Control, Transfers Control, Communication, Social Cognition, and Locomotion; and he had good Sphincter Control.Currently, he has deficits of Tr ansfers Control, Communication, Social Cognition, Endurance, Balance, Safety Awareness, Self-Care, an d Locomotion.Pt. is now referred to [facility] for acute in-patient rehabilita tion in order to maximize patient's functional independence in activities of daily living, strength, ROM, and mobility.- Rehab Goal Patient has realistic goal of being discharged at assistance level 6-Deuce to reside at Home with Fam reynaldo/Relatives. MDM/PLAN: - Physical Therapy Gait dysfunction - to improve, our physical therapists will perform initial evaluation of pt's statu s upon admission and devise an individualized program for Gait Training, and Wheel Chair mobility Inability to transfer - to improve, our physical therapists will perform initial evaluation of pt's status upon admission and devise an individualized program for Bed mobility Need for home safety evaluation - to improve, our physical therapists will perform initial evaluatio n of pt's status upon admission and devise an individualized program for Home Evaluation Need in caregiver upon discharge - to improve, our physical therapists will perform initial evaluati on of pt's status upon admission and devise an individualized program for Caregiver Training Edema - to improve, our physical therapists will perform initial evaluation of pt's status upon admis amado and devise an individualized program for Elevation Training, and Lymphedema Therapy New precaution - to improve, our physical therapists will perform initial evaluation of pt's status upon admission and devise an individualized program for Patient precaution education Poor balance - to improve, our physical therapists will perform initial evaluation of pt's status up on admission and devise an individualized program for Balance Training Poor endurance - to improve, our physical therapists will perform initial evaluation of pt's status upon admission and devise an individualized program for Endurance Training Weakness - to improve, our physical therapists will perform initial evaluation of pt's status upon a dmission and devise an individualized program for Aquatic Therapy, Neuromuscular Reeducation, and Str engthening Achieving independence - to improve, our physical therapists will perform initial evaluation of pt's status upon admission and devise an individualized program for Community Reintegration Activities - Occupational Therapy ADL deficits - to improve, our occupation therapists will perform initial evaluation of pt's status upon admission and devise an individualized program for Bathing, Bed mobility, Community Reintegratio n, Cooking, Dressing, Eating, Fine Motor Skills, Grooming, Homemaking, Kitchen Mobility, Laundry, Pat ient Education, Safety Awareness, Splinting - Positioning, Transfers(Toilet, Tub, Shower), and Wheel Chair Management Cognitive deficits - to improve, our occupation therapists will perform initial evaluation of pt's s tatus upon admission and devise an individualized program for Cognition - orientation Need for zoo caretaker - to improve, our occupation therapists will perform initial evaluation of pt's status upon admission and devise an individualized program for Caregiver Training Weakness - to improve, our occupation therapists will perform initial evaluation of pt's status upon admission and devise an individualized program for Aquatic Therapy, Balance, Endurance, UE ROM, and UE strengthening - Diet Type Continue Regular - Diet - Liquid Texture Continue Regular - Tube Feed Continue N/A - Diet - Solid Texture Continue Regular - Shower allowing shower FUNCTIONAL STATUS: UPDATED AT WEEKLY TEAM CONFERENCE - Bladder Same accident frequency: 7-Ind - No accidents in the past 7 days - Bowel Same accident frequency: 7-Ind - No accidents in the past 7 days - Walking Same score based on distance walked: 1(<=50ft) FUNCTIONAL STATUS: - Self-Care A. Eating Ind B. Grooming sup C. Bathing modA D. Dressing - Upper modA E. Dressing - Lower modA F. Toileting modA - Sphincter Control G: Bladder control Ind H: Bowel control Ind - Transfers Control I. Bed/Chair/Wheelchair modA J. Toilet modA K. Tub/Shower modA - Locomotion L. Walk/Wheelchair (W) maxA M. Stairs ADNO - Communication N. Comprehension (B) Kamilla O. Expression (B) Kamilla - Social Cognition P. Social Interaction Kamilla Q. Problem Solving Kamilla R. Memory Kamilla - Endurance Poor - Balance Poor - Safety Awareness Poor CURRENT FUNC. DEFICITS: Transfers Control, Communication, Social Cognition, Endurance, Balance, Safety Awareness, Self-Care, and Locomotion SIGNATURE PANEL: (CDT)
[2018-12-15] MEDS: ENOXAPARIN 30 MG/0.3 ML SQ SCH (17:54)
[2018-12-15] MEDS: MELATONIN 3 MG TABLET PO PRN (20:56)
[2018-12-15] MEDS: ATORVASTATIN 40 MG TAB PO SCH (20:56)
[2018-12-15] MEDS: DOCUSATE NA/SENNA CONC 1 TAB PO SCH (20:56)
--- NOTE | 2018-12-16 01:59 | FAST ---
SHIFT START DATE/TIME: 12/15/2018 19:00 (CDT) SHIFT END DATE/TIME: 12/16/2018 07:00 (CDT) NAME TYLOR GUZMAN DATE OF : 1950 DATE OF ADMISSION: 12/12/2018 19:50 (CDT) PHONE: AGE: 68 SSN# [id number] GENDER: Male ENCOUNTER PHYSICIAN: Dr. New Blunt M.D. ADMISSION DIAGNOSIS: - Cardiac 09 - Cardiac Disorders (09) CABG x4. EATING: Activity did not occur on this shift EATING - SCORE: 0-UNK GROOMING: Activity did not occur on this shift GROOMING - SCORE: 0-UNK BATHING: Activity did not occur on this shift BATHING - SCORE: 0-UNK DRESSING - UPPER BODY: Patient is not dressing in public clothing ARTICLES SCORE Total number of steps: 0 DRESSING - UPPER BODY - SCORE: 0-UNK DRESSING - LOWER BODY: Patient is not dressing in public clothing ARTICLES SCORE Total number of steps: 0 DRESSING - LOWER BODY - SCORE: 0-UNK TOILETING: TOILETING - STEP 1: Does the patient require the assistance of a person or device, or need extra time with toileting? Yes . TOILETING - STEP 2: Does the patient require the assistance of a helper? Yes. TOILETING - STEP 3: How much assistance does the patient require from the helper? Hands-on assistance from the helper TOILETING - STEP 4: Of the 3 tasks: 1) Adjusting clothing prior to use, 2) Cleansing of perineal area, 3) Adjusting clot halley after use; How many tasks does the patient perform WITHOUT assistance of the helper? No tasks; h willie performs all three tasks TOILETING - SCORE: 1-DEP BLADDER MANAGEMENT: Lawrence removes incontinent device (Depends, pull ups, etc.); cleans the patient after accident / inco ntinent episode; and, applies new incontinent device. BLADDER MANAGEMENT - SCORE: 1-DEP BOWEL MANAGEMENT: Lawrence removes incontinent device (depends, pull ups, etc.); cleans the patient after accident / inco ntinent episode; and, applies new device (depends, pull-ups, padding, etc.). BOWEL MANAGEMENT - SCORE: 1-DEP TRANSFERS: BED, CHAIR, WHEELCHAIR: Activity did not occur on this shift TRANSFERS: BED, CHAIR, WHEELCHAIR - SCORE: 0-UNK TRANSFERS: TOILET: Activity did not occur on this shift TRANSFERS: TOILET - SCORE: 0-UNK TRANSFERS: SHOWER: Activity did not occur on this shift TRANSFERS: SHOWER - SCORE: 0-UNK TRANSFERS: TUB: Activity did not occur on this shift TRANSFERS: TUB - SCORE: 0-UNK LOCOMOTION: WALK: Activity did not occur on this shift LOCOMOTION: WALK - SCORE: 0-UNK LOCOMOTION: WHEELCHAIR: Activity did not occur on this shift LOCOMOTION: WHEELCHAIR - SCORE: 0-UNK COMPREHENSION: COMPREHENSION: TYPE: Both COMPREHENSION - STEP 1: Does the patient require help from a person or device, or need extra time to understand complex and a bstract ideas (such as current events, finances, discharge planning, medical issues, relationships, e tc)? Yes. COMPREHENSION - STEP 2: Does the patient require help to understand questions or statements about basic needs or ideas (such as hunger, thirst, sleep, safety, daily schedule, room location, or discomfort) half or more of the t rosibel? No. COMPREHENSION - STEP 3: How often does the patient need help to understand directions and conversation about basic needs? 25% - 49% of the time COMPREHENSION - SCORE: 3-MOD EXPRESSION EXPRESSION: TYPE: Both EXPRESSION - STEP 1: Does the patient require help from a person or device, or need extra time expressing complex and abst ract ideas (such as current events, finances, discharge planning, medical issues, relationships, etc) ? No. EXPRESSION - STEP 2: Does the patient need extra time, require an assistive device (such as augmentive communication syste m or a communication board), OR does s/he have mild difficulty expressing complex and abstract ideas (including mild dysarthria or mild word-find problems)? Yes. EXPRESSION - SCORE: 6-MARCELINA SOCIAL INTERACTION: SOCIAL INTERACTION - STEP 1: Does the patient require a helper to interact with others in social and therapeutic situations? No. SOCIAL INTERACTION - STEP 2: Does the patient need extra time in social situations, OR does s/he interact with staff, other patien ts, and family members ONLY in structured environments, OR does s/he require medication for social in teraction? Yes, patient needs extra time SOCIAL INTERACTION - SCORE: 6-MARCELINA PROBLEM SOLVING: PROBLEM SOLVING - STEP 1: Does the patient need help from a person or device, or need extra time to solve complex problems such as managing a checking account or confronting interpersonal problems? Yes. PROBLEM SOLVING - STEP 2: Does the patient solve basic routine problems half or more of the time? Yes. PROBLEM SOLVING - STEP 3: How often does the patient need help to solve basic routine problems? 25%-49% of the time PROBLEM SOLVING - SCORE: 3-MOD MEMORY: MEMORY - STEP 1: Does the patient need help from a person or device, or need extra time to remember frequently encount ered people, daily routines, and executing requests? Yes. MEMORY - STEP 2: How often does the patient need help to remember frequently encountered people, daily routines, and e xecuting requests? 25% - 49% of the time MEMORY - SCORE: 3-MOD SIGNATURE PANEL: The following modified sections: Eating - Score, Grooming - Score, Dressing - Upper Body - Score, Vimal ssing - Lower Body - Score, Toileting - Score, Bladder Management - Score, Bowel Management - Score, Transfers: Bed, Chair, Wheelchair - Score, Transfers: Toilet - Score, Transfers: Shower - Score, Decker sfers: Tub - Score, Locomotion: Walk - Score, Locomotion: Wheelchair - Score, Comprehension - Score, Expression - Score, Social Interaction - Score, Problem Solving - Score, Memory - Score were [electro nically] signed by Hattie aPlafox CNA on SatDec 16 2018 01:41:23 GMT-0500 (Central Daylight Time)
[2018-12-16] MEDS: PANTOPRAZOLE 40MG TABLET PO SCH (07:04)
[2018-12-16 07:21] LABS: HDL Cholesterol 26 mg/dL (40-60); LDL, Direct 73 mg/dL (100-129)
[2018-12-16] MEDS: PROMOD 30 ML DOSE PO SCH ×2 (08:00→19:30)
[2018-12-16] MEDS: ONDANSETRON 4 MG (ODT) TAB PO PRN ×2 (08:30→13:49)
[2018-12-16] MEDS: ASPIRIN EC 81 MG TAB PO SCH (08:30)
[2018-12-16] MEDS: FERROUS SULFATE 325 MG TAB PO SCH (08:30)
[2018-12-16] MEDS: FE SULF/FA/VIT B COMP & C TAB PO SCH (08:30)
[2018-12-16] MEDS: CLOPIDOGREL 75 MG TABLET PO SCH (08:30)
--- NOTE | 2018-12-16 11:41 | EKG ---
Test Date: 2018-12-15 Test Time: 12:39:16 Dietetic Assistant: HOLLIS MEASUREMENT RESULTS: Intervals: Rate: 72 CA: 196 QRSD: 82 QT: 410 QTc: 448 [place]: P: 56 CA: 196 QRS: 43 T: 5 INTERPRETIVE STATEMENTS: Sinus rhythm with marked sinus arrhythmia Nonspecific T wave abnormality Abnormal ECG Compared to ECG 12/01/2018 13:30:37 T-wave abnormality now present AV block, complete (third-degree) no longer present Myocardial infarct finding no longer present ST (T wave) deviation no longer present Possible ischemia no longer present Electronically Signed On 12-15-18 16:09:36 CDT by Cornelio Morgan
--- NOTE | 2018-12-16 11:45 | FAST ---
SHIFT START DATE/TIME: 12/16/2018 07:00 (CDT) SHIFT END DATE/TIME: 12/16/2018 19:00 (CDT) NAME TYLOR GUZMAN DATE OF : 1950 DATE OF ADMISSION: 12/12/2018 19:50 (CDT) PHONE: AGE: 68 N# [id number] GENDER: Male ENCOUNTER PHYSICIAN: Dr. New Blunt M.D. ADMISSION DIAGNOSIS: - Cardiac 09 - Cardiac Disorders (09) CABG x4. EATING: EATING - STEP 1: Does the patient require the assistance of a person or device, or need extra time when eating? Yes. EATING - STEP 2: Does the patient require the assistance of a helper? Yes. EATING - STEP 3: Does the patient perform half or more of the eating tasks? Yes. EATING - STEP 4: Does the patient need only supervision, cuing, coaxing OR help to apply an orthosis OR help to cut fo od, open containers, pour liquids, or butter bread? Yes. EATING - SCORE: 5-SUP GROOMING: Activity did not occur on this shift GROOMING - SCORE: 0-UNK BATHING: Activity did not occur on this shift BATHING - SCORE: 0-UNK DRESSING - UPPER BODY: Activity did not occur on this shift ARTICLES SCORE Total number of steps: 0 DRESSING - UPPER BODY - SCORE: 0-UNK DRESSING - LOWER BODY: Activity did not occur on this shift ARTICLES SCORE Total number of steps: 0 DRESSING - LOWER BODY - SCORE: 0-UNK TOILETING: TOILETING - STEP 1: Does the patient require the assistance of a person or device, or need extra time with toileting? Yes . TOILETING - STEP 2: Does the patient require the assistance of a helper? Yes. TOILETING - STEP 3: How much assistance does the patient require from the helper? Hands-on assistance from the helper TOILETING - STEP 4: Of the 3 tasks: 1) Adjusting clothing prior to use, 2) Cleansing of perineal area, 3) Adjusting clot halley after use; How many tasks does the patient perform WITHOUT assistance of the helper? No tasks; h elper performs all three tasks TOILETING - SCORE: 1-DEP BLADDER MANAGEMENT: BLADDER MANAGEMENT - STEP 1: Does the patient control the bladder completely and intentionally without equipment or devices or med ications, and is always continent? No. BLADDER MANAGEMENT - STEP 2: Does the patient require the assistance of a helper? Yes. BLADDER MANAGEMENT - STEP 3: How much assistance does the patient require from the helper? Only set-up of equipment - such as plac ing it within reach of the patient or emptying a device - to maintain either satisfactory voiding pat tern or managing an external device, such as an absorbent pad, ileal device, or catheter BLADDER MANAGEMENT - SCORE: 5-SUP BLADDER MANAGEMENT - FREQUENCY OF ACCIDENTS: BLADDER MANAGEMENT(FA) - STEP 1: How many accidents has the patient had during the current shift? 0 BOWEL MANAGEMENT: Activity did not occur on this shift BOWEL MANAGEMENT - SCORE: 7-IND TRANSFERS: BED, CHAIR, WHEELCHAIR: TRANSFERS: BED, CHAIR, WHEELCHAIR - STEP 1: Does the patient require assistance of a person or device, or need extra time with bed, chair, or whe elchair transfers? Yes. TRANSFERS: BED, CHAIR, WHEELCHAIR - STEP 2: Does the patient require the assistance of a helper? Yes. TRANSFERS: BED, CHAIR, WHEELCHAIR - STEP 3: How much assistance does the patient require from the helper? Lifting of the patient TRANSFERS: BED, CHAIR, WHEELCHAIR - STEP 4: Does the helper lift the patient ONLY up? ONLY down? Up AND Down? ONLY up. TRANSFERS: BED, CHAIR, WHEELCHAIR - SCORE: 3-MOD TRANSFERS: TOILET: TRANSFERS: TOILET - STEP 1: Does the patient require the assistance of a person or device, or need extra time with toilet transfe rs? Yes. TRANSFERS: TOILET - STEP 2: Does the patient require the assistance of a helper? Yes. TRANSFERS: TOILET - STEP 3: How much assistance does the patient require from the helper? Patient performs half or more of the tr ansferring tasks TRANSFERS: TOILET - STEP 4: Does the patient need only incidental help such as contact guard or steadying during toilet transfer? Yes. TRANSFERS: TOILET - SCORE: 4-MIN TRANSFERS: SHOWER: Activity did not occur on this shift TRANSFERS: SHOWER - SCORE: 0-UNK TRANSFERS: TUB: Activity did not occur on this shift TRANSFERS: TUB - SCORE: 0-UNK LOCOMOTION: WALK: Activity did not occur on this shift LOCOMOTION: WALK - SCORE: 0-UNK LOCOMOTION: WHEELCHAIR: LOCOMOTION: WHEELCHAIR - STEP 1: Does the patient need help to go 150 feet in a wheelchair? Yes. LOCOMOTION: WHEELCHAIR - STEP 2: How much assistance does the patient need from the helper? More than incidental help LOCOMOTION: WHEELCHAIR - SCORE: 3-MOD COMPREHENSION: COMPREHENSION: TYPE: Both COMPREHENSION - STEP 1: Does the patient require help from a person or device, or need extra time to understand complex and a bstract ideas (such as current events, finances, discharge planning, medical issues, relationships, e tc)? Yes. COMPREHENSION - STEP 2: Does the patient require help to understand questions or statements about basic needs or ideas (such as hunger, thirst, sleep, safety, daily schedule, room location, or discomfort) half or more of the t rosibel? No. COMPREHENSION - STEP 3: How often does the patient need help to understand directions and conversation about basic needs? 25% - 49% of the time COMPREHENSION - SCORE: 3-MOD EXPRESSION EXPRESSION: TYPE: Both EXPRESSION - STEP 1: Does the patient require help from a person or device, or need extra time expressing complex and abst ract ideas (such as current events, finances, discharge planning, medical issues, relationships, etc) ? Yes. EXPRESSION - STEP 2: Does the patient require help to express basic necessities or ideas (such as hunger, thirst, sleep, s afety, daily schedule, room location, or discomfort) half or more of the time? No. EXPRESSION - STEP 3: How often does the patient need help to express directions and conversation about basic needs? 25-49% of the time EXPRESSION - SCORE: 3-MOD SOCIAL INTERACTION: SOCIAL INTERACTION - STEP 1: Does the patient require a helper to interact with others in social and therapeutic situations? Yes. SOCIAL INTERACTION - STEP 2: Does the patient interact appropriately half or more of the time? Yes. SOCIAL INTERACTION - STEP 3: How often does the patient need help to interact appropriately? Less than 10% of the time SOCIAL INTERACTION - SCORE: 5-SUP PROBLEM SOLVING: PROBLEM SOLVING - STEP 1: Does the patient need help from a person or device, or need extra time to solve complex problems such as managing a checking account or confronting interpersonal problems? Yes. PROBLEM SOLVING - STEP 2: Does the patient solve basic routine problems half or more of the time? Yes. PROBLEM SOLVING - STEP 3: How often does the patient need help to solve basic routine problems? 25%-49% of the time PROBLEM SOLVING - SCORE: 3-MOD MEMORY: MEMORY - STEP 1: Does the patient need help from a person or device, or need extra time to remember frequently encount ered people, daily routines, and executing requests? Yes. MEMORY - STEP 2: How often does the patient need help to remember frequently encountered people, daily routines, and e xecuting requests? 25% - 49% of the time MEMORY - SCORE: 3-MOD SIGNATURE PANEL: The following modified sections: Eating - Score, Grooming - Score, Bathing - Score, Dressing - Upper Body - Score, Dressing - Lower Body - Score, Toileting - Score, Bladder Management - Score, Bowel Man agement - Score, Transfers: Bed, Chair, Wheelchair - Score, Transfers: Toilet - Score, Transfers: Dianne wer - Score, Transfers: Tub - Score, Locomotion: Walk - Score, Locomotion: Wheelchair - Score, Compre hension - Score, Expression - Score, Social Interaction - Score, Problem Solving - Score, Memory - Sc ore were [electronically] signed by Sindhu Engle, C.N.AShane on SatDec 16 2018 11:45:07 T-0500 (Centra l Daylight Time)
--- NOTE | 2018-12-16 12:48 | RAD REPORT ---
EXAM DESCRIPTION: CT - Head Brain Wo Cont - 12/16/2018 12:32 pm CLINICAL HISTORY: Follow up r/o 24hr post hemorrhagic complication Headache, CVA, drowsiness COMPARISON: Ct Stroke Brain Wo Cont dated 12/15/2018; Head Brain Wo Cont dated 12/01/2018 TECHNIQUE: All CT scans are performed using dose optimization technique as appropriate and may inclu de automated exposure control or mA/KV adjustment according to patient size. FINDINGS: No intracranial hemorrhage, hydrocephalus or extra-axial fluid collection.Moderate hypoden sity in the periventricular and deep white matter compatible with chronic microvascular ischemic [place] ges.The 4 cm area of diminished density in the left cerebellar hemisphere is again seen without signi ficant change compatible with subacute infarct. No hemorrhagic conversion evident. The paranasal sinuses and mastoids are clear. The calvarium is intact. IMPRESSION: No acute intracranial abnormality. 4 cm area of subacute infarction again noted left cerebellar hemisphere without evidence of hemorrhag ic conversion.
[2018-12-16] MEDS ORDERED: LACTULOSE 20 GM/30 ML UCUP PO ONE (13:01)
--- NOTE | 2018-12-16 14:18 | FAST ---
ENCOUNTER DATE AND TIME: 12/16/2018 08:00 (CDT) NAME TYLOR GUZMAN DATE OF : 1950 DATE OF ADMISSION: 12/12/2018 19:50 (CDT) PHONE: AGE: 68 N# [id number] GENDER: Male ENCOUNTER PHYSICIAN: Dr. New Blunt M.D. ADMISSION DIAGNOSIS: - Cardiac 09 - Cardiac Disorders (09) CABG x4. EATING: Activity did not occur on this shift EATING - SCORE: 0-UNK GROOMING: Activity did not occur on this shift GROOMING - SCORE: 0-UNK BATHING: Activity did not occur on this shift BATHING - SCORE: 0-UNK DRESSING - UPPER BODY: Activity did not occur on this shift Patient is not dressing in public clothing ARTICLES SCORE Total number of steps: 0 DRESSING - UPPER BODY - SCORE: 0-UNK DRESSING - LOWER BODY: Activity did not occur on this shift Patient is not dressing in public clothing ARTICLES SCORE Total number of steps: 0 DRESSING - LOWER BODY - SCORE: 0-UNK TOILETING: Activity did not occur on this shift TOILETING - SCORE: 0-UNK BLADDER MANAGEMENT: Activity did not occur on this shift BLADDER MANAGEMENT - SCORE: 7-IND BOWEL MANAGEMENT: Activity did not occur on this shift BOWEL MANAGEMENT - SCORE: 7-IND TRANSFERS: BED, CHAIR, WHEELCHAIR: TRANSFERS: BED, CHAIR, WHEELCHAIR - STEP 1: Does the patient require assistance of a person or device, or need extra time with bed, chair, or whe elchair transfers? Yes. TRANSFERS: BED, CHAIR, WHEELCHAIR - STEP 2: Does the patient require the assistance of a helper? Yes. TRANSFERS: BED, CHAIR, WHEELCHAIR - STEP 3: How much assistance does the patient require from the helper? Lifting of the patient TRANSFERS: BED, CHAIR, WHEELCHAIR - STEP 4: Does the helper lift the patient ONLY up? ONLY down? Up AND Down? ONLY up. TRANSFERS: BED, CHAIR, WHEELCHAIR - SCORE: 3-MOD TRANSFERS: TOILET: Activity did not occur on this shift TRANSFERS: TOILET - SCORE: 0-UNK TRANSFERS: SHOWER: Activity did not occur on this shift TRANSFERS: SHOWER - SCORE: 0-UNK TRANSFERS: TUB: Activity did not occur on this shift TRANSFERS: TUB - SCORE: 0-UNK LOCOMOTION: WALK: LOCOMOTION: WALK - STEP 1: Does the patient need help from a person or device, or need extra time to walk 150 feet? Yes. LOCOMOTION: WALK - STEP 2: How much assistance does the patient require to walk a minimum of 150 feet? Patient walks less than 1 50 feet - but more than 50 feet - with the assistance of only one helper LOCOMOTION: WALK - SCORE: 2-MAX LOCOMOTION: WHEELCHAIR: LOCOMOTION: WHEELCHAIR - STEP 1: Does the patient need help to go 150 feet in a wheelchair? Yes. LOCOMOTION: WHEELCHAIR - STEP 2: How much assistance does the patient need from the helper? Only supervision, cuing, or coaxing LOCOMOTION: WHEELCHAIR - SCORE: 5-SUP LOCOMOTION: STAIRS: Activity did not occur on this shift LOCOMOTION: STAIRS - SCORE: 0-UNK COMPREHENSION: COMPREHENSION - SCORE: 0-UNK EXPRESSION EXPRESSION - SCORE: 0-UNK SOCIAL INTERACTION: SOCIAL INTERACTION - SCORE: 0-UNK PROBLEM SOLVING: PROBLEM SOLVING - SCORE: 0-UNK MEMORY: MEMORY - SCORE: 0-UNK SIGNATURE PANEL: The following modified sections: Transfers: Bed, Chair, Wheelchair - Score, Transfers: Toilet - Score , Locomotion: Walk - Score, Locomotion: Wheelchair - Score, Locomotion: Stairs - Score were [electron ically] signed by Des Mooney PT on SatDec 16 2018 14:17:19 T-0500 (Central Daylight Time)
--- NOTE | 2018-12-16 16:27 | EKG ---
Test Date: 2018-12-16 Test Time: 12:38:27 Client Professional: HOLLIS MEASUREMENT RESULTS: Intervals: Rate: 77 SC: 194 QRSD: 80 QT: 376 QTc: 425 Aiken: P: 51 SC: 194 QRS: 40 T: 176 INTERPRETIVE STATEMENTS: Normal sinus rhythm ST & T wave abnormality, consider inferior ischemia Abnormal ECG Compared to ECG 12/15/2018 12:39:16 ST (T wave) deviation now present Possible ischemia now present Sinus arrhythmia no longer present T-wave abnormality no longer present Electronically Signed On 12-16-18 16:27:12 CDT by Cornelio Morgan
[2018-12-16] MEDS: ENOXAPARIN 30 MG/0.3 ML SQ SCH (17:18)
--- NOTE | 2018-12-16 18:53 | R.PN ---
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 SUBJECTIVE: Pt denied any Shortness of Breath. Pt denied any depression. Increased confusion and incoordination today with head CT scan showing acute left inferior cerebellar stroke. Repeat head CT today shows 4 cm subacute infarct without hemorrhagic conversion. He has ongo ing nausea with chronic constipation. KUB shows severe fecal retention. Will do fleets enema and disi mpaction. WBC 13.8 with 78.4% neutrophils, urinalysis is unremarkable. Hgb 11.2, increased BUN at 21 and Paperboard Machine Operator at 1.43, low prealbumin at 12.4. Labs suggest dehydration and will increase free water intake to 6-8 gl asses daily. LDL 73, HDL 26. EKG shows sinus arrhythmia. Barium swallow shows moderate impairment with significant esophageal stasis and reflux. GI consult re commended. Self-propelled wheelchair 250' with minimum assistance. Ambulated only 10' with contact guard assista nce without an assistive device. He fatigues quickly. VITAL SIGNS Temperature: 98.1 F SBP/DBP: 130/85 Pulse: 85 Resp: 16 MEDICATION ALLERGIES: No Known Drug Allergies (NKDA) ENVIRONMENTAL ALLERGIES: - Substance Allergies None Known - Other Allergies None Known NURSING: - Shower allowing shower ACTIVITIES OOB only with supervision THERAPIES: - Occupational Therapy Evaluate and Treat. - Physical Therapy Evaluate and Treat. PHYSICAL EXAM - Gen Alert and awake Lying in bed No apparent distress Oriented to: person, time, and place - Skin Sternal incision is intact No abnormalities - Eyes No abnormalities - ENMT No abnormalities - Neck No abnormalities - CVS RRR - Chest No abnormalities - Abd +bowel sounds - GI Soft Deferred - No abnormalities - Ext No significant edema - MSK 4+/5 weakness in both lower extremities. - Neuro No focal deficits - Psych No abnormalities ASSESSMENT: Pt. is a 68 yo Right-handed white male.On 12/01/2018 he was admitted to [facility] with diagnosis CABG x4.His impairment category is Cardiac 09 - Cardiac Disorders ().Pre-m channingidly, Pt. was independent/mod-I in Self-Care, Sphincter Control, Transfers Control, Communication, Social Cognition, and Locomotion; and he had good Sphincter Control.Currently, he has deficits of Tr ansfers Control, Communication, Social Cognition, Endurance, Balance, Safety Awareness, Self-Care, an d Locomotion.Pt. is now [facility] to [facility] for acute in-patient rehabilita tion in order to maximize patient's functional independence in activities of daily living, strength, ROM, and mobility.- Rehab Goal Patient has realistic goal of being discharged at assistance level 6-Deuce to reside at Home with Fam reynaldo/Relatives. MDM/PLAN: - Physical Therapy Gait dysfunction - to improve, our physical therapists will perform initial evaluation of pt's statu s upon admission and devise an individualized program for Gait Training, and Wheel Chair mobility Inability to transfer - to improve, our physical therapists will perform initial evaluation of pt's status upon admission and devise an individualized program for Bed mobility Need for home safety evaluation - to improve, our physical therapists will perform initial evaluatio n of pt's status upon admission and devise an individualized program for Home Evaluation Need in caregiver upon discharge - to improve, our physical therapists will perform initial evaluati on of pt's status upon admission and devise an individualized program for Caregiver Training Edema - to improve, our physical therapists will perform initial evaluation of pt's status upon admi ssion and devise an individualized program for Elevation Training, and Lymphedema Therapy New precaution - to improve, our physical therapists will perform initial evaluation of pt's status upon admission and devise an individualized program for Patient precaution education Poor balance - to improve, our physical therapists will perform initial evaluation of pt's status up on admission and devise an individualized program for Balance Training Poor endurance - to improve, our physical therapists will perform initial evaluation of pt's status upon admission and devise an individualized program for Endurance Training Weakness - to improve, our physical therapists will perform initial evaluation of pt's status upon a dmission and devise an individualized program for Aquatic Therapy, Neuromuscular Reeducation, and Str engthening Achieving independence - to improve, our physical therapists will perform initial evaluation of pt's status upon admission and devise an individualized program for Community Reintegration Activities - Occupational Therapy ADL deficits - to improve, our occupation therapists will perform initial evaluation of pt's status upon admission and devise an individualized program for Bathing, Bed mobility, Community Reintegratio n, Cooking, Dressing, Eating, Fine Motor Skills, Grooming, Homemaking, Kitchen Mobility, Laundry, Pat ient Education, Safety Awareness, Splinting - Positioning, Transfers(Toilet, Tub, Shower), and Wheel Chair Management Cognitive deficits - to improve, our occupation therapists will perform initial evaluation of pt's s tatus upon admission and devise an individualized program for Cognition - orientation Need for clinical care leader - to improve, our occupation therapists will perform initial evaluation of pt's status upon admission and devise an individualized program for Caregiver Training Weakness - to improve, our occupation therapists will perform initial evaluation of pt's status upon admission and devise an individualized program for Aquatic Therapy, Balance, Endurance, UE ROM, and UE strengthening - Diet Type Continue Regular - Diet - Liquid Texture Continue Regular - Tube Feed Continue N/A - Diet - Solid Texture Continue Regular - Shower allowing shower FUNCTIONAL STATUS: UPDATED AT WEEKLY TEAM CONFERENCE - Bladder Same accident frequency: 7-Ind - No accidents in the past 7 days - Bowel Same accident frequency: 7-Ind - No accidents in the past 7 days - Walking Same score based on distance walked: 1(<=50ft) FUNCTIONAL STATUS: - Self-Care A. Eating Ind B. Grooming sup C. Bathing modA D. Dressing - Upper modA E. Dressing - Lower modA F. Toileting modA - Sphincter Control G: Bladder control Ind H: Bowel control Ind - Transfers Control I. Bed/Chair/Wheelchair modA J. Toilet modA K. Tub/Shower modA - Locomotion L. Walk/Wheelchair (W) maxA M. Stairs ADNO - Communication N. Comprehension (B) Kamilla O. Expression (B) Kamilla - Social Cognition P. Social Interaction Kamilla Q. Problem Solving Kamilla R. Memory Kamilla - Endurance Poor - Balance Poor - Safety Awareness Poor CURRENT FUNC. DEFICITS: Transfers Control, Communication, Social Cognition, Endurance, Balance, Safety Awareness, Self-Care, and Locomotion SIGNATURE PANEL: (CDT)
[2018-12-16] MEDS: FLEET ENEMA ADULT PR PRN (19:29)
[2018-12-16] MEDS: DOCUSATE NA/SENNA CONC 1 TAB PO SCH (20:36)
[2018-12-16] MEDS: MELATONIN 3 MG TABLET PO PRN (20:36)
[2018-12-16] MEDS: ATORVASTATIN 40 MG TAB PO SCH (20:36)
--- NOTE | 2018-12-17 01:34 | FAST ---
SHIFT START DATE/TIME: 12/16/2018 19:00 (CDT) SHIFT END DATE/TIME: 12/17/2018 07:00 (CDT) NAME TYLOR GUZMAN DATE OF : 1950 DATE OF ADMISSION: 12/12/2018 19:50 (CDT) PHONE: AGE: 68 SSN# [id number] GENDER: Male ENCOUNTER PHYSICIAN: Dr. New Blunt M.D. ADMISSION DIAGNOSIS: - Cardiac 09 - Cardiac Disorders (09) CABG x4. EATING: Activity did not occur on this shift EATING - SCORE: 0-UNK GROOMING: Activity did not occur on this shift GROOMING - SCORE: 0-UNK BATHING: Activity did not occur on this shift BATHING - SCORE: 0-UNK DRESSING - UPPER BODY: Patient is not dressing in public clothing ARTICLES SCORE Total number of steps: 0 DRESSING - UPPER BODY - SCORE: 0-UNK DRESSING - LOWER BODY: Patient is not dressing in public clothing ARTICLES SCORE Total number of steps: 0 DRESSING - LOWER BODY - SCORE: 0-UNK TOILETING: Activity did not occur on this shift TOILETING - SCORE: 0-UNK BLADDER MANAGEMENT: Gregory removes incontinent device (Depends, pull ups, etc.); cleans the patient after accident / inco ntinent episode; and, applies new incontinent device. BLADDER MANAGEMENT - SCORE: 1-DEP BOWEL MANAGEMENT: BOWEL MANAGEMENT - STEP 1: Does the patient control bowels completely and intentionally without equipment devices or medications AND is always continent? No. BOWEL MANAGEMENT - STEP 2: Does the patient require the assistance of a helper? No, patient requires medication for control such as stool softeners, suppositories, laxatives, enemas, or OTC medications BOWEL MANAGEMENT - SCORE: 6-MARCELINA TRANSFERS: BED, CHAIR, WHEELCHAIR: Activity did not occur on this shift TRANSFERS: BED, CHAIR, WHEELCHAIR - SCORE: 0-UNK TRANSFERS: TOILET: Activity did not occur on this shift TRANSFERS: TOILET - SCORE: 0-UNK TRANSFERS: SHOWER: Activity did not occur on this shift TRANSFERS: SHOWER - SCORE: 0-UNK TRANSFERS: TUB: Activity did not occur on this shift TRANSFERS: TUB - SCORE: 0-UNK LOCOMOTION: WALK: Activity did not occur on this shift LOCOMOTION: WALK - SCORE: 0-UNK LOCOMOTION: WHEELCHAIR: Activity did not occur on this shift LOCOMOTION: WHEELCHAIR - SCORE: 0-UNK COMPREHENSION: COMPREHENSION: TYPE: Both COMPREHENSION - STEP 1: Does the patient require help from a person or device, or need extra time to understand complex and a bstract ideas (such as current events, finances, discharge planning, medical issues, relationships, e tc)? Yes. COMPREHENSION - STEP 2: Does the patient require help to understand questions or statements about basic needs or ideas (such as hunger, thirst, sleep, safety, daily schedule, room location, or discomfort) half or more of the t rosibel? No. COMPREHENSION - STEP 3: How often does the patient need help to understand directions and conversation about basic needs? 25% - 49% of the time COMPREHENSION - SCORE: 3-MOD EXPRESSION EXPRESSION: TYPE: Both EXPRESSION - STEP 1: Does the patient require help from a person or device, or need extra time expressing complex and abst ract ideas (such as current events, finances, discharge planning, medical issues, relationships, etc) ? No. EXPRESSION - STEP 2: Does the patient need extra time, require an assistive device (such as augmentive communication syste m or a communication board), OR does s/he have mild difficulty expressing complex and abstract ideas (including mild dysarthria or mild word-find problems)? Yes. EXPRESSION - SCORE: 6-MARCELINA SOCIAL INTERACTION: SOCIAL INTERACTION - STEP 1: Does the patient require a helper to interact with others in social and therapeutic situations? No. SOCIAL INTERACTION - STEP 2: Does the patient need extra time in social situations, OR does s/he interact with staff, other patien ts, and family members ONLY in structured environments, OR does s/he require medication for social in teraction? Yes, patient needs extra time SOCIAL INTERACTION - SCORE: 6-MARCELINA PROBLEM SOLVING: PROBLEM SOLVING - STEP 1: Does the patient need help from a person or device, or need extra time to solve complex problems such as managing a checking account or confronting interpersonal problems? Yes. PROBLEM SOLVING - STEP 2: Does the patient solve basic routine problems half or more of the time? Yes. PROBLEM SOLVING - STEP 3: How often does the patient need help to solve basic routine problems? 25%-49% of the time PROBLEM SOLVING - SCORE: 3-MOD MEMORY: MEMORY - STEP 1: Does the patient need help from a person or device, or need extra time to remember frequently encount ered people, daily routines, and executing requests? No. MEMORY - STEP 2: Does the patient have slight difficulty recognizing frequently encountered people, daily routines, or executing requests without the need for repetition or using self-initiated or environmental cues to remember? Yes. MEMORY - SCORE: 6-MARCELINA SIGNATURE PANEL: The following modified sections: Eating - Score, Grooming - Score, Dressing - Upper Body - Score, Vimal ssing - Lower Body - Score, Toileting - Score, Bladder Management - Score, Bowel Management - Score, Transfers: Bed, Chair, Wheelchair - Score, Transfers: Toilet - Score, Transfers: Shower - Score, Decker sfers: Tub - Score, Locomotion: Walk - Score, Locomotion: Wheelchair - Score, Comprehension - Score, Expression - Score, Social Interaction - Score, Problem Solving - Score, Memory - Score were [electro nically] signed by Hattie Palafox CNA on SatDec 17 2018 01:33:50 GMT-0500 (Central Daylight Time)
[2018-12-17] MEDS: PANTOPRAZOLE 40MG TABLET PO SCH (07:31)
[2018-12-17] MEDS: ONDANSETRON 4 MG (ODT) TAB PO PRN (08:25)
[2018-12-17] MEDS: FE SULF/FA/VIT B COMP & C TAB PO SCH (08:26)
[2018-12-17] MEDS: CLOPIDOGREL 75 MG TABLET PO SCH (08:26)
[2018-12-17] MEDS: ASPIRIN EC 81 MG TAB PO SCH (08:27)
[2018-12-17] MEDS: FERROUS SULFATE 325 MG TAB PO SCH (08:27)
[2018-12-17] MEDS: PROMOD 30 ML DOSE PO SCH ×2 (08:28→20:26)
--- NOTE | 2018-12-17 10:11 | FAST ---
SHIFT START DATE/TIME: 12/17/2018 07:00 (CDT) SHIFT END DATE/TIME: 12/17/2018 19:00 (CDT) NAME TYLOR GUZMAN DATE OF : 1950 DATE OF ADMISSION: 12/12/2018 19:50 (CDT) PHONE: AGE: 68 N# [id number] GENDER: Male ENCOUNTER PHYSICIAN: Dr. New Blunt M.D. ADMISSION DIAGNOSIS: - Cardiac 09 - Cardiac Disorders (09) CABG x4. EATING: EATING - STEP 1: Does the patient require the assistance of a person or device, or need extra time when eating? Yes. EATING - STEP 2: Does the patient require the assistance of a helper? Yes. EATING - STEP 3: Does the patient perform half or more of the eating tasks? Yes. EATING - STEP 4: Does the patient need only supervision, cuing, coaxing OR help to apply an orthosis OR help to cut fo od, open containers, pour liquids, or butter bread? Yes. EATING - SCORE: 5-SUP GROOMING: Activity did not occur on this shift GROOMING - SCORE: 0-UNK BATHING: Activity did not occur on this shift BATHING - SCORE: 0-UNK DRESSING - UPPER BODY: Button down shirt or blouse - TUCKED IN (five steps) ARTICLES SCORE Total number of steps: 5 DRESSING - UPPER BODY - STEP 1: Does the patient require help from a person or device, or need extra time when dressing above the ankit st? Yes. DRESSING - UPPER BODY - STEP 2: Does the patient require the assistance of a helper? Yes. DRESSING - UPPER BODY - STEP 3: Does the helper touch the patient while dressing? Yes. DRESSING - UPPER BODY - STEP 4: How many of the total steps does the patient complete on his/her own? 3 DRESSING - UPPER BODY - SCORE: 3-MOD DRESSING - LOWER BODY: ARTICLES SCORE Total number of steps: 10 DRESSING - LOWER BODY - STEP 1: Does the patient require help from a person or device, or need extra time when dressing below the ankit st? Yes. DRESSING - LOWER BODY - STEP 2: Does the patient require the assistance of a helper? Yes. DRESSING - LOWER BODY - STEP 3: Does the helper touch the patient while dressing? Yes. DRESSING - LOWER BODY - STEP 4: How many of the total steps does the patient complete on his/her own? 3 DRESSING - LOWER BODY - STEP 5: Does patient require total assistance for dressing below the waist such as the helper holding clothin g and performing basically all the activities? No. DRESSING - LOWER BODY - SCORE: 2-MAX TOILETING: TOILETING - STEP 1: Does the patient require the assistance of a person or device, or need extra time with toileting? Yes . TOILETING - STEP 2: Does the patient require the assistance of a helper? Yes. TOILETING - STEP 3: How much assistance does the patient require from the helper? Hands-on assistance from the helper TOILETING - STEP 4: Of the 3 tasks: 1) Adjusting clothing prior to use, 2) Cleansing of perineal area, 3) Adjusting clot halley after use; How many tasks does the patient perform WITHOUT assistance of the helper? Two tasks TOILETING - SCORE: 3-MOD BLADDER MANAGEMENT: BLADDER MANAGEMENT - STEP 1: Does the patient control the bladder completely and intentionally without equipment or devices or med ications, and is always continent? No. BLADDER MANAGEMENT - STEP 2: Does the patient require the assistance of a helper? No, patient requires and independently uses an a ssistive device, such as a urinal, bedpan, bedside commode, catheter, absorbent pad, or collecting de vice BLADDER MANAGEMENT - SCORE: 6-MARCELINA BOWEL MANAGEMENT: [place] removes incontinent device (depends, pull ups, etc.); cleans the patient after accident / inco ntinent episode; and, applies new device (depends, pull-ups, padding, etc.). BOWEL MANAGEMENT - SCORE: 1-DEP TRANSFERS: BED, CHAIR, WHEELCHAIR: TRANSFERS: BED, CHAIR, WHEELCHAIR - STEP 1: Does the patient require assistance of a person or device, or need extra time with bed, chair, or whe elchair transfers? Yes. TRANSFERS: BED, CHAIR, WHEELCHAIR - STEP 2: Does the patient require the assistance of a helper? Yes. TRANSFERS: BED, CHAIR, WHEELCHAIR - STEP 3: How much assistance does the patient require from the helper? Steadying/guiding assistance TRANSFERS: BED, CHAIR, WHEELCHAIR - SCORE: 4-MIN TRANSFERS: BED, CHAIR, WHEELCHAIR - COMMENTS: Pt is unsteady when transferring TRANSFERS: TOILET: TRANSFERS: TOILET - STEP 1: Does the patient require the assistance of a person or device, or need extra time with toilet transfe rs? Yes. TRANSFERS: TOILET - STEP 2: Does the patient require the assistance of a helper? Yes. TRANSFERS: TOILET - STEP 3: How much assistance does the patient require from the helper? Patient performs half or more of the tr ansferring tasks TRANSFERS: TOILET - STEP 4: Does the patient need only incidental help such as contact guard or steadying during toilet transfer? No. Patient needs more than incidental help TRANSFERS: TOILET - SCORE: 3-MOD TRANSFERS: SHOWER: Activity did not occur on this shift TRANSFERS: SHOWER - SCORE: 0-UNK TRANSFERS: TUB: Activity did not occur on this shift TRANSFERS: TUB - SCORE: 0-UNK LOCOMOTION: WALK: Activity did not occur on this shift LOCOMOTION: WALK - SCORE: 0-UNK LOCOMOTION: WHEELCHAIR: Activity did not occur on this shift LOCOMOTION: WHEELCHAIR - SCORE: 0-UNK COMPREHENSION: COMPREHENSION: TYPE: Both COMPREHENSION - STEP 1: Does the patient require help from a person or device, or need extra time to understand complex and a bstract ideas (such as current events, finances, discharge planning, medical issues, relationships, e tc)? Yes. COMPREHENSION - STEP 2: Does the patient require help to understand questions or statements about basic needs or ideas (such as hunger, thirst, sleep, safety, daily schedule, room location, or discomfort) half or more of the t rosibel? Yes. COMPREHENSION - STEP 3: Is the patient basically able to understand and respond appropriately and consistently? Yes. COMPREHENSION - SCORE: 2-MAX EXPRESSION EXPRESSION: TYPE: Both EXPRESSION - STEP 1: Does the patient require help from a person or device, or need extra time expressing complex and abst ract ideas (such as current events, finances, discharge planning, medical issues, relationships, etc) ? Yes. EXPRESSION - STEP 2: Does the patient require help to express basic necessities or ideas (such as hunger, thirst, sleep, s afety, daily schedule, room location, or discomfort) half or more of the time? No. EXPRESSION - STEP 3: How often does the patient need help to express directions and conversation about basic needs? 25-49% of the time EXPRESSION - SCORE: 3-MOD SOCIAL INTERACTION: SOCIAL INTERACTION - STEP 1: Does the patient require a helper to interact with others in social and therapeutic situations? Yes. SOCIAL INTERACTION - STEP 2: Does the patient interact appropriately half or more of the time? Yes. SOCIAL INTERACTION - STEP 3: How often does the patient need help to interact appropriately? 25-49% of the time SOCIAL INTERACTION - SCORE: 3-MOD PROBLEM SOLVING: PROBLEM SOLVING - STEP 1: Does the patient need help from a person or device, or need extra time to solve complex problems such as managing a checking account or confronting interpersonal problems? Yes. PROBLEM SOLVING - STEP 2: Does the patient solve basic routine problems half or more of the time? No. PROBLEM SOLVING - STEP 3: Does the patient need help to solve problems all the time or is s/he unable to solve problems? No. Rick good can sometimes solve problems PROBLEM SOLVING - SCORE: 2-MAX MEMORY: MEMORY - STEP 1: Does the patient need help from a person or device, or need extra time to remember frequently encount ered people, daily routines, and executing requests? Yes. MEMORY - STEP 2: How often does the patient need help to remember frequently encountered people, daily routines, and e xecuting requests? More than 50% of the time MEMORY - STEP 3: Does the patient need help to remember all of the time OR does s/he not effectively recognize and rem ember? No. Patient does not need help all the time MEMORY - SCORE: 2-MAX SIGNATURE PANEL: The following modified sections: Eating - Score, Grooming - Score, Bathing - Score, Dressing - Upper Body - Score, Dressing - Lower Body - Score, Toileting - Score, Bladder Management - Score, Bowel Man agement - Score, Transfers: Bed, Chair, Wheelchair - Score, Transfers: Bed, Chair, Wheelchair - Comme nts:, Transfers: Toilet - Score, Transfers: Shower - Score, Transfers: Tub - Score, Locomotion: Walk - Score, Locomotion: Wheelchair - Score, Comprehension - Score, Expression - Score, Social Interactio n - Score, Problem Solving - Score, Memory - Score were [electronically] signed by Manolo Carpenter on SatDec 17 2018 10:10:31 T-0500 (Central Daylight Time)
--- NOTE | 2018-12-17 14:48 | FAST ---
ENCOUNTER DATE AND TIME: 12/17/2018 08:00 (CDT) NAME TYLOR GUZMAN DATE OF : 1950 DATE OF ADMISSION: 12/12/2018 19:50 (CDT) PHONE: AGE: 68 N# [id number] GENDER: Male ENCOUNTER PHYSICIAN: Dr. New Blunt M.D. ADMISSION DIAGNOSIS: - Cardiac 09 - Cardiac Disorders (09) CABG x4. EATING: Activity did not occur on this shift EATING - SCORE: 0-UNK GROOMING: Activity did not occur on this shift GROOMING - SCORE: 0-UNK BATHING: Activity did not occur on this shift BATHING - SCORE: 0-UNK DRESSING - UPPER BODY: Activity did not occur on this shift Patient is not dressing in public clothing ARTICLES SCORE Total number of steps: 0 DRESSING - UPPER BODY - SCORE: 0-UNK DRESSING - LOWER BODY: Activity did not occur on this shift Patient is not dressing in public clothing ARTICLES SCORE Total number of steps: 0 DRESSING - LOWER BODY - SCORE: 0-UNK TOILETING: Activity did not occur on this shift TOILETING - SCORE: 0-UNK BLADDER MANAGEMENT: Activity did not occur on this shift BLADDER MANAGEMENT - SCORE: 7-IND BOWEL MANAGEMENT: Activity did not occur on this shift BOWEL MANAGEMENT - SCORE: 7-IND TRANSFERS: BED, CHAIR, WHEELCHAIR: TRANSFERS: BED, CHAIR, WHEELCHAIR - STEP 1: Does the patient require assistance of a person or device, or need extra time with bed, chair, or whe elchair transfers? Yes. TRANSFERS: BED, CHAIR, WHEELCHAIR - STEP 2: Does the patient require the assistance of a helper? Yes. TRANSFERS: BED, CHAIR, WHEELCHAIR - STEP 3: How much assistance does the patient require from the helper? Steadying/guiding assistance TRANSFERS: BED, CHAIR, WHEELCHAIR - SCORE: 4-MIN TRANSFERS: TOILET: Activity did not occur on this shift TRANSFERS: TOILET - SCORE: 0-UNK TRANSFERS: SHOWER: Activity did not occur on this shift TRANSFERS: SHOWER - SCORE: 0-UNK TRANSFERS: TUB: Activity did not occur on this shift TRANSFERS: TUB - SCORE: 0-UNK LOCOMOTION: WALK: LOCOMOTION: WALK - STEP 1: Does the patient need help from a person or device, or need extra time to walk 150 feet? Yes. LOCOMOTION: WALK - STEP 2: How much assistance does the patient require to walk a minimum of 150 feet? Only incidental help such as contact guarding or steadying LOCOMOTION: WALK - SCORE: 4-MIN LOCOMOTION: WHEELCHAIR: LOCOMOTION: WHEELCHAIR - STEP 1: Does the patient need help to go 150 feet in a wheelchair? Yes. LOCOMOTION: WHEELCHAIR - STEP 2: How much assistance does the patient need from the helper? Only supervision, cuing, or coaxing LOCOMOTION: WHEELCHAIR - SCORE: 5-SUP LOCOMOTION: STAIRS: Activity did not occur on this shift LOCOMOTION: STAIRS - SCORE: 0-UNK COMPREHENSION: COMPREHENSION - SCORE: 0-UNK EXPRESSION EXPRESSION - SCORE: 0-UNK SOCIAL INTERACTION: SOCIAL INTERACTION - SCORE: 0-UNK PROBLEM SOLVING: PROBLEM SOLVING - SCORE: 0-UNK MEMORY: MEMORY - SCORE: 0-UNK SIGNATURE PANEL: The following modified sections: Transfers: Bed, Chair, Wheelchair - Score, Transfers: Toilet - Score , Locomotion: Walk - Score, Locomotion: Wheelchair - Score, Locomotion: Stairs - Score were [electron sin] signed by Alon Kingston PTA on SatDec 17 2018 14:48:21 GMT-0500 (Central Daylight Time)
[2018-12-17] MEDS: ENOXAPARIN 30 MG/0.3 ML SQ SCH (17:01)
[2018-12-17] MEDS: DOCUSATE NA/SENNA CONC 1 TAB PO SCH (20:35)
[2018-12-17] MEDS: ATORVASTATIN 40 MG TAB PO SCH (20:35)
[2018-12-17] MEDS: MELATONIN 3 MG TABLET PO PRN (20:36)
--- NOTE | 2018-12-18 01:24 | FAST ---
SHIFT START DATE/TIME: 12/17/2018 19:00 (CDT) SHIFT END DATE/TIME: 12/18/2018 07:00 (CDT) NAME TYLOR GUZMAN DATE OF : 1950 DATE OF ADMISSION: 12/12/2018 19:50 (CDT) PHONE: AGE: 68 SSN# [id number] GENDER: Male ENCOUNTER PHYSICIAN: Dr. New Blunt M.D. ADMISSION DIAGNOSIS: - Cardiac 09 - Cardiac Disorders (09) CABG x4. EATING: Activity did not occur on this shift EATING - SCORE: 0-UNK GROOMING: Activity did not occur on this shift GROOMING - SCORE: 0-UNK BATHING: Activity did not occur on this shift BATHING - SCORE: 0-UNK DRESSING - UPPER BODY: Patient is not dressing in public clothing ARTICLES SCORE Total number of steps: 0 DRESSING - UPPER BODY - SCORE: 0-UNK DRESSING - LOWER BODY: Patient is not dressing in public clothing ARTICLES SCORE Total number of steps: 0 DRESSING - LOWER BODY - SCORE: 0-UNK TOILETING: Activity did not occur on this shift TOILETING - SCORE: 0-UNK BLADDER MANAGEMENT: [place] removes incontinent device (Depends, pull ups, etc.); cleans the patient after accident / inco ntinent episode; and, applies new incontinent device. BLADDER MANAGEMENT - SCORE: 1-DEP BLADDER MANAGEMENT - FREQUENCY OF ACCIDENTS: BLADDER MANAGEMENT(FA) - STEP 1: How many accidents has the patient had during the current shift? 1 BOWEL MANAGEMENT: Activity did not occur on this shift BOWEL MANAGEMENT - SCORE: 7-IND TRANSFERS: BED, CHAIR, WHEELCHAIR: Activity did not occur on this shift TRANSFERS: BED, CHAIR, WHEELCHAIR - SCORE: 0-UNK TRANSFERS: TOILET: Activity did not occur on this shift TRANSFERS: TOILET - SCORE: 0-UNK TRANSFERS: SHOWER: Activity did not occur on this shift TRANSFERS: SHOWER - SCORE: 0-UNK TRANSFERS: TUB: Activity did not occur on this shift TRANSFERS: TUB - SCORE: 0-UNK LOCOMOTION: WALK: Activity did not occur on this shift LOCOMOTION: WALK - SCORE: 0-UNK LOCOMOTION: WHEELCHAIR: Activity did not occur on this shift LOCOMOTION: WHEELCHAIR - SCORE: 0-UNK COMPREHENSION: COMPREHENSION: TYPE: Both COMPREHENSION - STEP 1: Does the patient require help from a person or device, or need extra time to understand complex and a bstract ideas (such as current events, finances, discharge planning, medical issues, relationships, e tc)? Yes. COMPREHENSION - STEP 2: Does the patient require help to understand questions or statements about basic needs or ideas (such as hunger, thirst, sleep, safety, daily schedule, room location, or discomfort) half or more of the t rosibel? No. COMPREHENSION - STEP 3: How often does the patient need help to understand directions and conversation about basic needs? Les s than 10% of the time COMPREHENSION - SCORE: 5-SUP EXPRESSION EXPRESSION: TYPE: Both EXPRESSION - STEP 1: Does the patient require help from a person or device, or need extra time expressing complex and abst ract ideas (such as current events, finances, discharge planning, medical issues, relationships, etc) ? Yes. EXPRESSION - STEP 2: Does the patient require help to express basic necessities or ideas (such as hunger, thirst, sleep, s afety, daily schedule, room location, or discomfort) half or more of the time? No. EXPRESSION - STEP 3: How often does the patient need help to express directions and conversation about basic needs? Less t soares 10% of the time EXPRESSION - SCORE: 5-SUP SOCIAL INTERACTION: SOCIAL INTERACTION - STEP 1: Does the patient require a helper to interact with others in social and therapeutic situations? Yes. SOCIAL INTERACTION - STEP 2: Does the patient interact appropriately half or more of the time? Yes. SOCIAL INTERACTION - STEP 3: How often does the patient need help to interact appropriately? Less than 10% of the time SOCIAL INTERACTION - SCORE: 5-SUP PROBLEM SOLVING: Patient requires bed/chair alarms due to attempts to get up unassisted when helper is needed. PROBLEM SOLVING - STEP 1: How often do the bed/chair alarms go off? Occasionally - the alarms go off about 25% or less PROBLEM SOLVING - SCORE: 4-MIN MEMORY: MEMORY - STEP 1: How often do the bed/chair alarms go off? Occasionally - the alarms go off about 25% of the time or l ess MEMORY - SCORE: 4-MIN SIGNATURE PANEL: The following modified sections: Eating - Score, Grooming - Score, Bathing - Score, Dressing - Upper Body - Score, Dressing - Lower Body - Score, Toileting - Score, Bladder Management - Score, Bowel Man agement - Score, Transfers: Bed, Chair, Wheelchair - Score, Transfers: Toilet - Score, Transfers: Dianne wer - Score, Transfers: Tub - Score, Locomotion: Walk - Score, Locomotion: Wheelchair - Score, Compre hension - Score, Expression - Score, Social Interaction - Score, Problem Solving - Score, Memory - Sc ore were [electronically] signed by Sonia Burns RN on SatDec 18 2018 01:23:46 T-0500 ([facility] Time)
[2018-12-18 06:08] LABS: Absolute Lymphocytes (CBC) 1.6 K/uL (0.7-4.9); Absolute Monocytes 0.9 K/uL (0.1-1.3); Absolute Neutrophil 7.2 K/uL (1.8-8.0); Basophils % 1.3 % (0-1.3); Eosinophils % 2.3 % (0-4.4); Hematocrit 29.7 % (39.6-49.0); Lymphocytes % 16.2 % (15.3-44.8); MPV 9.3 fL (7.6-11.3); Monocytes % 8.5 % (3.3-12.3); RBC Red Blood Cell Count 3.13 M/uL (4.33-5.43)
[2018-12-18 06:21] LABS: Albumin 2.7 g/dL (3.4-5.0); Potassium 3.5 mmol/L (3.5-5.1); Prealbumin 15.3 mg/dL (20-40)
[2018-12-18] MEDS: ONDANSETRON 4 MG (ODT) TAB PO PRN ×3 (07:08→16:54)
[2018-12-18] MEDS: PANTOPRAZOLE 40MG TABLET PO SCH (07:08)
[2018-12-18] MEDS: PROMOD 30 ML DOSE PO SCH ×2 (08:00→20:20)
[2018-12-18] MEDS: ASPIRIN EC 81 MG TAB PO SCH (08:18)
[2018-12-18] MEDS: FERROUS SULFATE 325 MG TAB PO SCH (08:18)
[2018-12-18] MEDS: CLOPIDOGREL 75 MG TABLET PO SCH (08:18)
[2018-12-18] MEDS: FE SULF/FA/VIT B COMP & C TAB PO SCH (08:18)
--- NOTE | 2018-12-18 10:00 | FAST ---
SHIFT START DATE/TIME: 12/18/2018 07:00 (CDT) SHIFT END DATE/TIME: 12/18/2018 19:00 (CDT) NAME TYLOR GUZMAN DATE OF : 1950 DATE OF ADMISSION: 12/12/2018 19:50 (CDT) PHONE: AGE: 68 N# [id number] GENDER: Male ENCOUNTER PHYSICIAN: Dr. New Blunt M.D. ADMISSION DIAGNOSIS: - Cardiac 09 - Cardiac Disorders (09) CABG x4. EATING: EATING - STEP 1: Does the patient require the assistance of a person or device, or need extra time when eating? Yes. EATING - STEP 2: Does the patient require the assistance of a helper? Yes. EATING - STEP 3: Does the patient perform half or more of the eating tasks? Yes. EATING - STEP 4: Does the patient need only supervision, cuing, coaxing OR help to apply an orthosis OR help to cut fo od, open containers, pour liquids, or butter bread? Yes. EATING - SCORE: 5-SUP GROOMING: Comb/brush hair Oral care Wash, rinse, and dry face Wash, rinse, and dry hands GROOMING - STEP 1: Does the patient require the assistance of a person or device, or need extra time when grooming? Yes. GROOMING - STEP 2: Does the patient require the assistance of a helper? Yes. GROOMING - STEP 3: How much assistance does the patient require from the helper? Cuing, coaxing, instructions, or encour agement for completion of grooming GROOMING - SCORE: 5-SUP BATHING: Activity did not occur on this shift BATHING - SCORE: 0-UNK DRESSING - UPPER BODY: T-shirt/pullover shirt (four steps) ARTICLES SCORE Total number of steps: 4 DRESSING - UPPER BODY - STEP 1: Does the patient require help from a person or device, or need extra time when dressing above the ankit st? Yes. DRESSING - UPPER BODY - STEP 2: Does the patient require the assistance of a helper? Yes. DRESSING - UPPER BODY - STEP 3: Does the helper touch the patient while dressing? Yes. DRESSING - UPPER BODY - STEP 4: How many of the total steps does the patient complete on his/her own? 2 DRESSING - UPPER BODY - SCORE: 3-MOD DRESSING - LOWER BODY: ARTICLES SCORE Total number of steps: 3 DRESSING - LOWER BODY - STEP 1: Does the patient require help from a person or device, or need extra time when dressing below the ankit st? Yes. DRESSING - LOWER BODY - STEP 2: Does the patient require the assistance of a helper? Yes. DRESSING - LOWER BODY - STEP 3: Does the helper touch the patient while dressing? Yes. DRESSING - LOWER BODY - STEP 4: How many of the total steps does the patient complete on his/her own? 2 DRESSING - LOWER BODY - SCORE: 3-MOD TOILETING: TOILETING - STEP 1: Does the patient require the assistance of a person or device, or need extra time with toileting? Yes . TOILETING - STEP 2: Does the patient require the assistance of a helper? Yes. TOILETING - STEP 3: How much assistance does the patient require from the helper? Hands-on assistance from the helper TOILETING - STEP 4: Of the 3 tasks: 1) Adjusting clothing prior to use, 2) Cleansing of perineal area, 3) Adjusting clot halley after use; How many tasks does the patient perform WITHOUT assistance of the helper? Two tasks TOILETING - SCORE: 3-MOD BLADDER MANAGEMENT: BLADDER MANAGEMENT - STEP 1: Does the patient control the bladder completely and intentionally without equipment or devices or med ications, and is always continent? No. BLADDER MANAGEMENT - STEP 2: Does the patient require the assistance of a helper? No, patient requires and independently uses an a ssistive device, such as a urinal, bedpan, bedside commode, catheter, absorbent pad, or collecting de vice BLADDER MANAGEMENT - SCORE: 6-MARCELINA BOWEL MANAGEMENT: Activity did not occur on this shift BOWEL MANAGEMENT - SCORE: 7-IND TRANSFERS: BED, CHAIR, WHEELCHAIR: TRANSFERS: BED, CHAIR, WHEELCHAIR - STEP 1: Does the patient require assistance of a person or device, or need extra time with bed, chair, or whe elchair transfers? Yes. TRANSFERS: BED, CHAIR, WHEELCHAIR - STEP 2: Does the patient require the assistance of a helper? Yes. TRANSFERS: BED, CHAIR, WHEELCHAIR - STEP 3: How much assistance does the patient require from the helper? Steadying/guiding assistance TRANSFERS: BED, CHAIR, WHEELCHAIR - SCORE: 4-MIN TRANSFERS: TOILET: TRANSFERS: TOILET - STEP 1: Does the patient require the assistance of a person or device, or need extra time with toilet transfe rs? Yes. TRANSFERS: TOILET - STEP 2: Does the patient require the assistance of a helper? Yes. TRANSFERS: TOILET - STEP 3: How much assistance does the patient require from the helper? Patient performs half or more of the tr ansferring tasks TRANSFERS: TOILET - STEP 4: Does the patient need only incidental help such as contact guard or steadying during toilet transfer? Yes. TRANSFERS: TOILET - SCORE: 4-MIN TRANSFERS: SHOWER: Activity did not occur on this shift TRANSFERS: SHOWER - SCORE: 0-UNK TRANSFERS: TUB: Activity did not occur on this shift TRANSFERS: TUB - SCORE: 0-UNK LOCOMOTION: WALK: Activity did not occur on this shift LOCOMOTION: WALK - SCORE: 0-UNK LOCOMOTION: WHEELCHAIR: Activity did not occur on this shift LOCOMOTION: WHEELCHAIR - SCORE: 0-UNK COMPREHENSION: COMPREHENSION: TYPE: Both COMPREHENSION - STEP 1: Does the patient require help from a person or device, or need extra time to understand complex and a bstract ideas (such as current events, finances, discharge planning, medical issues, relationships, e tc)? Yes. COMPREHENSION - STEP 2: Does the patient require help to understand questions or statements about basic needs or ideas (such as hunger, thirst, sleep, safety, daily schedule, room location, or discomfort) half or more of the t rosibel? No. COMPREHENSION - STEP 3: How often does the patient need help to understand directions and conversation about basic needs? 25% - 49% of the time COMPREHENSION - SCORE: 3-MOD EXPRESSION EXPRESSION: TYPE: Both EXPRESSION - STEP 1: Does the patient require help from a person or device, or need extra time expressing complex and abst ract ideas (such as current events, finances, discharge planning, medical issues, relationships, etc) ? Yes. EXPRESSION - STEP 2: Does the patient require help to express basic necessities or ideas (such as hunger, thirst, sleep, s afety, daily schedule, room location, or discomfort) half or more of the time? No. EXPRESSION - STEP 3: How often does the patient need help to express directions and conversation about basic needs? 25-49% of the time EXPRESSION - SCORE: 3-MOD SOCIAL INTERACTION: SOCIAL INTERACTION - STEP 1: Does the patient require a helper to interact with others in social and therapeutic situations? Yes. SOCIAL INTERACTION - STEP 2: Does the patient interact appropriately half or more of the time? Yes. SOCIAL INTERACTION - STEP 3: How often does the patient need help to interact appropriately? 25-49% of the time SOCIAL INTERACTION - SCORE: 3-MOD PROBLEM SOLVING: PROBLEM SOLVING - STEP 1: Does the patient need help from a person or device, or need extra time to solve complex problems such as managing a checking account or confronting interpersonal problems? Yes. PROBLEM SOLVING - STEP 2: Does the patient solve basic routine problems half or more of the time? Yes. PROBLEM SOLVING - STEP 3: How often does the patient need help to solve basic routine problems? 25%-49% of the time PROBLEM SOLVING - SCORE: 3-MOD MEMORY: MEMORY - STEP 1: Does the patient need help from a person or device, or need extra time to remember frequently encount ered people, daily routines, and executing requests? Yes. MEMORY - STEP 2: How often does the patient need help to remember frequently encountered people, daily routines, and e xecuting requests? 25% - 49% of the time MEMORY - SCORE: 3-MOD SIGNATURE PANEL: The following modified sections: Eating - Score, Grooming - Score, Bathing - Score, Dressing - Upper Body - Score, Dressing - Lower Body - Score, Toileting - Score, Bladder Management - Score, Bowel Man agement - Score, Transfers: Bed, Chair, Wheelchair - Score, Transfers: Toilet - Score, Transfers: Dianne wer - Score, Transfers: Tub - Score, Locomotion: Walk - Score, Locomotion: Wheelchair - Score, Compre hension - Score, Expression - Score, Social Interaction - Score, Problem Solving - Score, Memory - Sc ore were [electronically] signed by Manolo Carpenter on SatDec 18 2018 09:59:24 GMT-0500 (Central Daylight Time)
[2018-12-18] MEDS: MECLIZINE HCL 12.5 MG TAB PO PRN (11:39)
[2018-12-18] MEDS: BISACODYL 10 MG RECTAL SUPP PR PRN (11:40)
--- NOTE | 2018-12-18 12:18 | P.CNS ---
Date of Consult: 12/18/18 Chief Complaint: Painful toenails Allergies No Known Drug Allergies Allergy (Verified 06/14/18 03:09) Unknown No Known Allergies Allergy (Uncoded 06/14/18 03:09) Unknown Home Medications: Aspirin 81 mg PO DAILY 06/14/18 Amlodipine [Norvasc] 10 mg PO DAILY 12/13/18 Atorvastatin Calcium [Lipitor] 40 mg PO BEDTIME 12/13/18 Metoprolol Tartrate [Lopressor] 50 mg PO DAILY 12/13/18 Ondansetron [Ondansetron Odt] 4 mg PO Q6HP PRN 12/13/18 Pantoprazole [Protonix Tab] 40 mg PO DAILY 12/13/18 Sennosides/Docusate Sodium [Senna-S Tablet] 1 each PO BEDTIME 12/13/18 - Past Medical/Surgical History Diabetic: No -: CVA -: HTN -: renal insufficiency -: nava Hip FX -: broken ankle R -: CKD -: tonsillectomy -: nava reconstructive hip SX -: SX R ankle with pins - Social History Smoking Status: Never smoker Alcohol use: No CD- Drugs: No Caffeine use: Yes Review of Systems 10-point ROS is otherwise unremarkable Physical Examination Temp Pulse Resp BP Pulse Ox 97.8 F 49 L 16 128/68 98 12/18/18 08:00 12/18/18 08:00 12/18/18 08:00 12/18/18 08:00 12/18/18 08:00 General: Alert, In no apparent distress, Oriented x3, Confused Cardiovascular: No edema, Abnormal pulses Capillary refill: <2 Seconds Musculoskeletal: No clubbing, No swelling, No contractures, No erythema, No tenderness, No warmth (Absent hair growth with thickened elongated nails bilateral hallux. Elongated nails 2-5 bilateral) Neurological: Sensation intact Laboratory Data (last 24 hrs) 12/18/18 05:44: Sodium 143, Potassium 3.5, BUN 20 H, Creatinine 1.66 H, Glucose 97 12/18/18 05:44: WBC 10.0 D, Hgb 10.1 L, Hct 29.7 L, Plt Count 307 - Problems (1) Tinea unguium Current Visit: Yes Status: Acute (2) Onychogryphosis Current Visit: Yes Status: Acute Conclusions/Impression: Debridement of nails at bedside Physician Review: Patient Assessed, Agree with Above Assessment and Plan Critical Care: No Time Spent Managing Pts care (In Minutes): 30
[2018-12-18] MEDS: FLEET ENEMA ADULT PR PRN (13:50)
[2018-12-18] MEDS ORDERED: FORMULATION-R RECTAL 30GM PR PRN (15:09)
[2018-12-18] MEDS: ENOXAPARIN 30 MG/0.3 ML SQ SCH (15:40)
--- NOTE | 2018-12-18 18:23 | R.PN ---
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 SUBJECTIVE: Pt denied any Shortness of Breath. Pt denied any depression. Increased confusion and incoordination today with head CT scan showing acute left inferior cerebellar stroke. Repeat head CT today shows 4 cm subacute infarct without hemorrhagic conversion. He has ongo ing nausea with chronic constipation. KUB shows severe fecal retention. Will do fleets enema and disi mpaction. WBC 10.0 with 71.7% neutrophils, urinalysis is unremarkable. Hgb 10.1, increased BUN at 20 and Pressure Testing Technician at 1.66, low prealbumin at 15.3. Labs suggest dehydration and will increase free water intake to 6-8 gl asses daily. LDL 73, HDL 26. EKG shows sinus arrhythmia. Barium swallow shows moderate impairment with significant esophageal stasis and reflux. GI consult re commended. Self-propelled wheelchair 250' with minimum assistance. Ambulated only 10' with contact guard assista nce without an assistive device. He fatigues quickly. Dr. Faust diagnosed patient with tinea unquium and onychogryphosis and debrided the toe nails. VITAL SIGNS Temperature: 97.8 F SBP/DBP: 128/68 Pulse: 80 Resp: 16 MEDICATION ALLERGIES: No Known Drug Allergies (NKDA) ENVIRONMENTAL ALLERGIES: - Substance Allergies None Known - Other Allergies None Known NURSING: - Shower allowing shower ACTIVITIES OOB only with supervision THERAPIES: - Occupational Therapy Evaluate and Treat. - Physical Therapy Evaluate and Treat. PHYSICAL EXAM - Gen Alert and awake Lying in bed No apparent distress Oriented to: person, time, and place - Skin Sternal incision is intact No abnormalities - Eyes No abnormalities - ENMT No abnormalities - Neck No abnormalities - CVS RRR - Chest No abnormalities - Abd +bowel sounds - GI Soft Deferred - No abnormalities - Ext No significant edema - MSK 4+/5 weakness in both lower extremities. - Neuro No focal deficits - Psych No abnormalities ASSESSMENT: Pt. is a 68 yo Right-handed white male.On 12/01/2018 he was admitted to [facility] with diagnosis CABG x4.His impairment category is Cardiac 09 - Cardiac Disorders (09).Pre-m orbidly, Pt. was independent/mod-I in Self-Care, Sphincter Control, Transfers Control, Communication, Social Cognition, and Locomotion; and he had good Sphincter Control.Currently, he has deficits of Tr ansfers Control, Communication, Social Cognition, Endurance, Balance, Safety Awareness, Self-Care, an d Locomotion.Pt. is now referred to [facility] for acute in-patient rehabilita tion in order to maximize patient's functional independence in activities of daily living, strength, ROM, and mobility.- Rehab Goal Patient has realistic goal of being discharged at assistance level 6-Deuce to reside at Home with Fam reynaldo/Relatives. MDM/PLAN: - Physical Therapy Gait dysfunction - to improve, our physical therapists will perform initial evaluation of pt's statu s upon admission and devise an individualized program for Gait Training, and Wheel Chair mobility Inability to transfer - to improve, our physical therapists will perform initial evaluation of pt's status upon admission and devise an individualized program for Bed mobility Need for home safety evaluation - to improve, our physical therapists will perform initial evaluatio n of pt's status upon admission and devise an individualized program for Home Evaluation Need in caregiver upon discharge - to improve, our physical therapists will perform initial evaluati on of pt's status upon admission and devise an individualized program for Caregiver Training Edema - to improve, our physical therapists will perform initial evaluation of pt's status upon admi ssion and devise an individualized program for Elevation Training, and Lymphedema Therapy New precaution - to improve, our physical therapists will perform initial evaluation of pt's status upon admission and devise an individualized program for Patient precaution education Poor balance - to improve, our physical therapists will perform initial evaluation of pt's status up on admission and devise an individualized program for Balance Training Poor endurance - to improve, our physical therapists will perform initial evaluation of pt's status upon admission and devise an individualized program for Endurance Training Weakness - to improve, our physical therapists will perform initial evaluation of pt's status upon a dmission and devise an individualized program for Aquatic Therapy, Neuromuscular Reeducation, and Str engthening Achieving independence - to improve, our physical therapists will perform initial evaluation of pt's status upon admission and devise an individualized program for Community Reintegration Activities - Occupational Therapy ADL deficits - to improve, our occupation therapists will perform initial evaluation of pt's status upon admission and devise an individualized program for Bathing, Bed mobility, Community Reintegratio n, Cooking, Dressing, Eating, Fine Motor Skills, Grooming, Homemaking, Kitchen Mobility, Laundry, Pat ient Education, Safety Awareness, Splinting - Positioning, Transfers(Toilet, Tub, Shower), and Wheel Chair Management Cognitive deficits - to improve, our occupation therapists will perform initial evaluation of pt's s tatus upon admission and devise an individualized program for Cognition - orientation Need for hospice home care coordinator - to improve, our occupation therapists will perform initial evaluation of pt's status upon admission and devise an individualized program for Caregiver Training Weakness - to improve, our occupation therapists will perform initial evaluation of pt's status upon admission and devise an individualized program for Aquatic Therapy, Balance, Endurance, UE ROM, and UE strengthening - Diet Type Continue Regular - Diet - Liquid Texture Continue Regular - Tube Feed Continue N/A - Diet - Solid Texture Continue Regular - Shower allowing shower FUNCTIONAL STATUS: UPDATED AT WEEKLY TEAM CONFERENCE - Bladder Same accident frequency: 7-Ind - No accidents in the past 7 days - Bowel Same accident frequency: 7-Ind - No accidents in the past 7 days - Walking Same score based on distance walked: 1(<=50ft) FUNCTIONAL STATUS: - Self-Care A. Eating Ind B. Grooming sup C. Bathing modA D. Dressing - Upper modA E. Dressing - Lower modA F. Toileting modA - Sphincter Control G: Bladder control Ind H: Bowel control Ind - Transfers Control I. Bed/Chair/Wheelchair modA J. Toilet modA K. Tub/Shower modA - Locomotion L. Walk/Wheelchair (W) maxA M. Stairs ADNO - Communication N. Comprehension (B) Kamilla O. Expression (B) Kamilla - Social Cognition P. Social Interaction Kamilla Q. Problem Solving Kamilla R. Memory Kamilla - Endurance Poor - Balance Poor - Safety Awareness Poor CURRENT FUNC. DEFICITS: Transfers Control, Communication, Social Cognition, Endurance, Balance, Safety Awareness, Self-Care, and Locomotion SIGNATURE PANEL: (CDT)
[2018-12-18] MEDS: DOCUSATE NA/SENNA CONC 1 TAB PO SCH (20:18)
[2018-12-18] MEDS: MELATONIN 3 MG TABLET PO PRN (20:19)
[2018-12-18] MEDS: ATORVASTATIN 40 MG TAB PO SCH (20:19)
--- NOTE | 2018-12-19 01:26 | FAST ---
SHIFT START DATE/TIME: 12/18/2018 19:00 (CDT) SHIFT END DATE/TIME: 12/19/2018 07:00 (CDT) NAME TYLOR GUZMAN DATE OF : 1950 DATE OF ADMISSION: 12/12/2018 19:50 (CDT) PHONE: AGE: 68 SSN# [id number] GENDER: Male ENCOUNTER PHYSICIAN: Dr. New Blunt M.D. ADMISSION DIAGNOSIS: - Cardiac 09 - Cardiac Disorders (09) CABG x4. EATING: Activity did not occur on this shift EATING - SCORE: 0-UNK GROOMING: Activity did not occur on this shift GROOMING - SCORE: 0-UNK BATHING: Activity did not occur on this shift BATHING - SCORE: 0-UNK DRESSING - UPPER BODY: Patient is not dressing in public clothing ARTICLES SCORE Total number of steps: 0 DRESSING - UPPER BODY - SCORE: 0-UNK DRESSING - LOWER BODY: Patient is not dressing in public clothing ARTICLES SCORE Total number of steps: 0 DRESSING - LOWER BODY - SCORE: 0-UNK TOILETING: Activity did not occur on this shift TOILETING - SCORE: 0-UNK BLADDER MANAGEMENT: [place] removes incontinent device (Depends, pull ups, etc.); cleans the patient after accident / inco ntinent episode; and, applies new incontinent device. BLADDER MANAGEMENT - SCORE: 1-DEP BLADDER MANAGEMENT - FREQUENCY OF ACCIDENTS: BLADDER MANAGEMENT(FA) - STEP 1: How many accidents has the patient had during the current shift? 1 BOWEL MANAGEMENT: [place] removes incontinent device (depends, pull ups, etc.); cleans the patient after accident / inco ntinent episode; and, applies new device (depends, pull-ups, padding, etc.). BOWEL MANAGEMENT - SCORE: 1-DEP BOWEL MANAGEMENT - FREQUENCY OF ACCIDENTS: BOWEL MANAGEMENT(FA) - STEP 1: How many accidents has the patient had during the current shift? 1 TRANSFERS: BED, CHAIR, WHEELCHAIR: Activity did not occur on this shift TRANSFERS: BED, CHAIR, WHEELCHAIR - SCORE: 0-UNK TRANSFERS: TOILET: Activity did not occur on this shift TRANSFERS: TOILET - SCORE: 0-UNK TRANSFERS: SHOWER: Activity did not occur on this shift TRANSFERS: SHOWER - SCORE: 0-UNK TRANSFERS: TUB: Activity did not occur on this shift TRANSFERS: TUB - SCORE: 0-UNK LOCOMOTION: WALK: Activity did not occur on this shift LOCOMOTION: WALK - SCORE: 0-UNK LOCOMOTION: WHEELCHAIR: Activity did not occur on this shift LOCOMOTION: WHEELCHAIR - SCORE: 0-UNK COMPREHENSION: COMPREHENSION: TYPE: Both COMPREHENSION - STEP 1: Does the patient require help from a person or device, or need extra time to understand complex and a bstract ideas (such as current events, finances, discharge planning, medical issues, relationships, e tc)? Yes. COMPREHENSION - STEP 2: Does the patient require help to understand questions or statements about basic needs or ideas (such as hunger, thirst, sleep, safety, daily schedule, room location, or discomfort) half or more of the t rosibel? No. COMPREHENSION - STEP 3: How often does the patient need help to understand directions and conversation about basic needs? Les s than 10% of the time COMPREHENSION - SCORE: 5-SUP EXPRESSION EXPRESSION: TYPE: Both EXPRESSION - STEP 1: Does the patient require help from a person or device, or need extra time expressing complex and abst ract ideas (such as current events, finances, discharge planning, medical issues, relationships, etc) ? Yes. EXPRESSION - STEP 2: Does the patient require help to express basic necessities or ideas (such as hunger, thirst, sleep, s afety, daily schedule, room location, or discomfort) half or more of the time? No. EXPRESSION - STEP 3: How often does the patient need help to express directions and conversation about basic needs? Less t soares 10% of the time EXPRESSION - SCORE: 5-SUP SOCIAL INTERACTION: SOCIAL INTERACTION - STEP 1: Does the patient require a helper to interact with others in social and therapeutic situations? Yes. SOCIAL INTERACTION - STEP 2: Does the patient interact appropriately half or more of the time? Yes. SOCIAL INTERACTION - STEP 3: How often does the patient need help to interact appropriately? Less than 10% of the time SOCIAL INTERACTION - SCORE: 5-SUP PROBLEM SOLVING: Patient requires bed/chair alarms due to attempts to get up unassisted when helper is needed. PROBLEM SOLVING - STEP 1: How often do the bed/chair alarms go off? Occasionally - the alarms go off about 25% or less PROBLEM SOLVING - SCORE: 4-MIN MEMORY: MEMORY - STEP 1: How often do the bed/chair alarms go off? Occasionally - the alarms go off about 25% of the time or l ess MEMORY - SCORE: 4-MIN SIGNATURE PANEL: The following modified sections: Eating - Score, Grooming - Score, Bathing - Score, Dressing - Upper Body - Score, Dressing - Lower Body - Score, Toileting - Score, Bladder Management - Score, Bowel Man agement - Score, Transfers: Bed, Chair, Wheelchair - Score, Transfers: Toilet - Score, Transfers: Dianne wer - Score, Transfers: Tub - Score, Locomotion: Walk - Score, Locomotion: Wheelchair - Score, Compre hension - Score, Expression - Score, Social Interaction - Score, Problem Solving - Score, Memory - Sc ore were [electronically] signed by Sonia Burns RN on SatDec 19 2018 01:25:09 T-0500 ([facility] Time)
[2018-12-19] MEDS: PANTOPRAZOLE 40MG TABLET PO SCH (06:30)
[2018-12-19] MEDS: FE SULF/FA/VIT B COMP & C TAB PO SCH (07:52)
[2018-12-19] MEDS: FERROUS SULFATE 325 MG TAB PO SCH (07:52)
[2018-12-19] MEDS: ASPIRIN EC 81 MG TAB PO SCH (07:52)
[2018-12-19] MEDS: CLOPIDOGREL 75 MG TABLET PO SCH (07:52)
[2018-12-19] MEDS: METOPROLOL TAR 50 MG TAB PO SCH (07:59)
[2018-12-19] MEDS: AMLODIPINE 10 MG TAB PO SCH (08:00)
[2018-12-19] MEDS: PROMOD 30 ML DOSE PO SCH ×2 (08:00→20:00)
--- NOTE | 2018-12-19 08:39 | FAST ---
ENCOUNTER DATE AND TIME: 12/19/2018 08:00 (CDT) NAME TYLOR GUZMAN DATE OF : 1950 DATE OF ADMISSION: 12/12/2018 19:50 (CDT) PHONE: AGE: 68 SSN# [id number] GENDER: Male ENCOUNTER PHYSICIAN: Dr. New Blunt M.D. ADMISSION DIAGNOSIS: - Cardiac 09 - Cardiac Disorders (09) CABG x4. EATING: Activity did not occur on this shift EATING - SCORE: 0-UNK GROOMING: Comb/brush hair Oral care GROOMING - STEP 1: Does the patient require the assistance of a person or device, or need extra time when grooming? Yes. GROOMING - STEP 2: Does the patient require the assistance of a helper? Yes. GROOMING - STEP 3: How much assistance does the patient require from the helper? Only prior equipment preparation/set up from the helper GROOMING - SCORE: 5-SUP BATHING: Abdomen Buttocks Chest Left arm Left lower leg and foot Left upper leg Perineal area Right arm Right lower leg and foot Right upper leg BATHING - STEP 1: Does the patient require the assistance of a person or device, or need extra time when bathing? Yes. BATHING - STEP 2: Does the patient require the assistance of a helper? Yes. BATHING - STEP 3: How much assistance does the patient require from the helper? Only incidental help such as placement of a wash cloth in his/her hand a few times as s/he bathes OR help to bathe just one or two areas of the body BATHING - SCORE: 4-MIN DRESSING - UPPER BODY: Button down shirt or blouse - NOT tucked in (four steps) ARTICLES SCORE Total number of steps: 4 DRESSING - UPPER BODY - STEP 1: Does the patient require help from a person or device, or need extra time when dressing above the ankit st? Yes. DRESSING - UPPER BODY - STEP 2: Does the patient require the assistance of a helper? Yes. DRESSING - UPPER BODY - STEP 3: Does the helper touch the patient while dressing? No. DRESSING - UPPER BODY - SCORE: 5-SUP DRESSING - LOWER BODY: Underwear (three steps) Zippered pants (four steps) ARTICLES SCORE Total number of steps: 7 DRESSING - LOWER BODY - STEP 1: Does the patient require help from a person or device, or need extra time when dressing below the ankit st? Yes. DRESSING - LOWER BODY - STEP 2: Does the patient require the assistance of a helper? Yes. DRESSING - LOWER BODY - STEP 3: Does the helper touch the patient while dressing? Yes. DRESSING - LOWER BODY - STEP 4: How many of the total steps does the patient complete on his/her own? 4 DRESSING - LOWER BODY - SCORE: 3-MOD TOILETING: Activity did not occur on this shift TOILETING - SCORE: 0-UNK BLADDER MANAGEMENT: Activity did not occur on this shift BLADDER MANAGEMENT - SCORE: 7-IND BOWEL MANAGEMENT: Activity did not occur on this shift BOWEL MANAGEMENT - SCORE: 7-IND TRANSFERS: BED, CHAIR, WHEELCHAIR: TRANSFERS: BED, CHAIR, WHEELCHAIR - STEP 1: Does the patient require assistance of a person or device, or need extra time with bed, chair, or whe elchair transfers? Yes. TRANSFERS: BED, CHAIR, WHEELCHAIR - STEP 2: Does the patient require the assistance of a helper? Yes. TRANSFERS: BED, CHAIR, WHEELCHAIR - STEP 3: How much assistance does the patient require from the helper? Steadying/guiding assistance TRANSFERS: BED, CHAIR, WHEELCHAIR - SCORE: 4-MIN TRANSFERS: BED, CHAIR, WHEELCHAIR - COMMENTS: Frequent reminders of sternal precautions TRANSFERS: TOILET: Activity did not occur on this shift TRANSFERS: TOILET - SCORE: 0-UNK TRANSFERS: SHOWER: TRANSFERS: SHOWER - STEP 1: Does the patient require the assistance of a person or device, or need extra time with shower transfe rs? Yes. TRANSFERS: SHOWER - STEP 2: Does the patient require the assistance of a helper? Yes. TRANSFERS: SHOWER - STEP 3: How much assistance does the patient require from the helper? Only incidental help such as contact gu arding or steadying during shower transfers, or help to lift one leg into the shower TRANSFERS: SHOWER - SCORE: 4-MIN TRANSFERS: TUB: Activity did not occur on this shift TRANSFERS: TUB - SCORE: 0-UNK LOCOMOTION: WALK: Activity did not occur on this shift LOCOMOTION: WALK - SCORE: 0-UNK LOCOMOTION: WHEELCHAIR: Activity did not occur on this shift LOCOMOTION: WHEELCHAIR - SCORE: 0-UNK LOCOMOTION: STAIRS: Activity did not occur on this shift LOCOMOTION: STAIRS - SCORE: 0-UNK COMPREHENSION: COMPREHENSION: TYPE: Both COMPREHENSION - STEP 1: Does the patient require help from a person or device, or need extra time to understand complex and a bstract ideas (such as current events, finances, discharge planning, medical issues, relationships, e tc)? Yes. COMPREHENSION - STEP 2: Does the patient require help to understand questions or statements about basic needs or ideas (such as hunger, thirst, sleep, safety, daily schedule, room location, or discomfort) half or more of the t rosibel? No. COMPREHENSION - STEP 3: How often does the patient need help to understand directions and conversation about basic needs? Les s than 10% of the time COMPREHENSION - SCORE: 5-SUP EXPRESSION EXPRESSION: TYPE: Both EXPRESSION - STEP 1: Does the patient require help from a person or device, or need extra time expressing complex and abst ract ideas (such as current events, finances, discharge planning, medical issues, relationships, etc) ? Yes. EXPRESSION - STEP 2: Does the patient require help to express basic necessities or ideas (such as hunger, thirst, sleep, s afety, daily schedule, room location, or discomfort) half or more of the time? No. EXPRESSION - STEP 3: How often does the patient need help to express directions and conversation about basic needs? Less t soares 10% of the time EXPRESSION - SCORE: 5-SUP SOCIAL INTERACTION: SOCIAL INTERACTION - STEP 1: Does the patient require a helper to interact with others in social and therapeutic situations? No. SOCIAL INTERACTION - STEP 2: Does the patient need extra time in social situations, OR does s/he interact with staff, other patien ts, and family members ONLY in structured environments, OR does s/he require medication for social in teraction? No. SOCIAL INTERACTION - SCORE: 7-IND PROBLEM SOLVING: PROBLEM SOLVING - STEP 1: Does the patient need help from a person or device, or need extra time to solve complex problems such as managing a checking account or confronting interpersonal problems? Yes. PROBLEM SOLVING - STEP 2: Does the patient solve basic routine problems half or more of the time? Yes. PROBLEM SOLVING - STEP 3: How often does the patient need help to solve basic routine problems? Less than 10% of the time PROBLEM SOLVING - SCORE: 5-SUP MEMORY: MEMORY - STEP 1: Does the patient need help from a person or device, or need extra time to remember frequently encount ered people, daily routines, and executing requests? Yes. MEMORY - STEP 2: How often does the patient need help to remember frequently encountered people, daily routines, and e xecuting requests? 25% - 49% of the time MEMORY - SCORE: 3-MOD SIGNATURE PANEL: The following modified sections: Eating - Score, Grooming - Score, Bathing - Score, Dressing - Upper Body - Score, Dressing - Lower Body - Score, Toileting - Score, Transfers: Bed, Chair, Wheelchair - S core, Transfers: Bed, Chair, Wheelchair - Comments:, Transfers: Toilet - Score, Transfers: Shower - S core, Transfers: Tub - Score, Comprehension - Score, Expression - Score, Social Interaction - Score, Problem Solving - Score, Memory - Score were [electronically] signed by NAV Ngo on Sat 08:38:55 T-0500 (Central Daylight Time)
--- NOTE | 2018-12-19 10:00 | P.RH.PN ---
Estimated Length of Stay: 12 Expected Discharge Date: 12/23/18 Discharge Disposition Plan: Home Family Support: Yes Retirement Goal: Mobility, Transfers, Self Care Vital Signs: Last Vital Signs Temp 97.8 F 12/19/18 07:40 Pulse 49 L 12/19/18 08:00 Resp 16 12/19/18 07:40 BP 116/78 12/19/18 08:00 Pulse Ox 97 12/19/18 07:40 Laboratory: Laboratory Last Values WBC 10.0 K/uL (4.3-10.9) D 12/18/18 05:44 RBC 3.13 M/uL (4.33-5.43) L 12/18/18 05:44 Hgb 10.1 g/dL (13.6-17.9) L 12/18/18 05:44 Hct 29.7 % (39.6-49.0) L 12/18/18 05:44 MCV 95.2 fL (80-100) 12/18/18 05:44 MCH 32.3 pg (27.0-35.0) 12/18/18 05:44 MCHC 34.0 g/dL (32.0-36.0) 12/18/18 05:44 RDW 15.5 % (12.1-15.2) H 12/18/18 05:44 Plt Count 307 K/uL (152-406) 12/18/18 05:44 MPV 9.3 fL (7.6-11.3) 12/18/18 05:44 Neutrophils % 71.7 % (41.7-73.7) 12/18/18 05:44 Lymphocytes % 16.2 % (15.3-44.8) 12/18/18 05:44 Monocytes % 8.5 % (3.3-12.3) 12/18/18 05:44 Eosinophils % 2.3 % (0-4.4) 12/18/18 05:44 Basophils % 1.3 % (0-1.3) 12/18/18 05:44 Absolute Neutrophils 7.2 K/uL (1.8-8.0) 12/18/18 05:44 Absolute Lymphocytes 1.6 K/uL (0.7-4.9) 12/18/18 05:44 Absolute Monocytes 0.9 K/uL (0.1-1.3) 12/18/18 05:44 Absolute Eosinophils 0.2 K/uL (0-0.5) 12/18/18 05:44 Absolute Basophils 0.1 K/uL (0-0.5) 12/18/18 05:44 Sodium 143 mmol/L (136-145) 12/18/18 05:44 Potassium 3.5 mmol/L (3.5-5.1) 12/18/18 05:44 Chloride 108 mmol/L (98-107) H 12/18/18 05:44 Carbon Dioxide 29 mmol/L (21-32) 12/18/18 05:44 BUN 20 mg/dL (7-18) H 12/18/18 05:44 Creatinine 1.66 mg/dL (0.55-1.3) H 12/18/18 05:44 Estimated GFR 42 mL/min (=/>90) L 12/18/18 05:44 Glucose 97 mg/dL (74-106) 12/18/18 05:44 Calcium 8.2 mg/dL (8.5-10.1) L 12/18/18 05:44 Magnesium 2.2 mg/dL (1.8-2.4) 12/13/18 06:34 Total Bilirubin 1.1 mg/dL (0.2-1.0) H 12/15/18 11:04 Direct Bilirubin 0.3 mg/dL (0-0.2) H 12/15/18 11:04 AST 21 U/L (15-37) 12/15/18 11:04 ALT 26 U/L (12-78) 12/15/18 11:04 Alkaline Phosphatase 88 U/L (45-117) 12/15/18 11:04 Serum Total Protein 7.0 g/dL (6.4-8.2) 12/15/18 11:04 Albumin 2.7 g/dL (3.4-5.0) L 12/18/18 05:44 Globulin 4.0 g/dL (2.3-3.5) H 12/15/18 11:04 Albumin/Globulin Ratio 0.8 (1.1-1.8) L 12/15/18 11:04 Prealbumin 15.3 mg/dL (20-40) L 12/18/18 05:44 Cholesterol 113 mg/dL (<200) 12/16/18 06:42 LDL Cholesterol Direct 73 mg/dL (100-129) L 12/16/18 06:42 HDL Cholesterol 26 mg/dL (40-60) L 12/16/18 06:42 Urine Color Yellow 12/12/18 19:50 Urine Appearance Clear 12/12/18 19:50 Urine pH 7.5 (5.0-7.0) H 12/12/18 19:50 Ur Specific Cantril 1.010 (1.005-1.030) 12/12/18 19:50 Urine Ketones Negative (NEG) 12/12/18 19:50 Urine Blood Negative (NEG) 12/12/18 19:50 Urine Nitrite Negative (NEG) 12/12/18 19:50 Urine Bilirubin Negative (NEG) 12/12/18 19:50 Urine Urobilinogen 4.0 mg/dL (0.2-1.0) H 12/12/18 19:50 Ur Leukocyte Esterase Negative (NEG) 12/12/18 19:50 Urine RBC None seen /HPF (NONE SEEN) 12/12/18 19:50 Urine WBC <5 /HPF (<5) 12/12/18 19:50 Ur Squamous Epith Cells ASSISTED LIVING COORDINATOR 12/12/18 19:50 Urine Bacteria <20 /HPF (NONE SEEN) 12/12/18 19:50 Urine Culture Reflexed Not needed 12/12/18 19:50 Urine Glucose Negative (NEG) 12/12/18 19:50 Urine Total Protein 1+ (NEG) H 12/12/18 19:50 Weight: 191 lb Wound Present: Yes Closed Surgical Incision Present: Yes Negative Pressure Wound Therapy Present: No Physician Update: Labs have been reviewed and his Pharmacy Clinical Specialist is elevated to 1.66. He requires more water, 6-8 glasses daily. He is on thickened liquids. He is walking 250' with contact guard assistance. He has difficulty maintaining sternal precautions. Medical Issues: DVt Prophylaxis - Lovenox 30mg SQ daily Pain Issues: Tramadol 50mg Q4H PRN Functional Improvement Occupational Therapy: pt can benifit with further therapy to address and Cont to educate and train pt on sternal precautions by providing demo for safe transfers and education, due to the pt not adhering to the sternal precautions. Cont to educate on safety and energy conservation techniques when completing UB/LB dressing due to the sternal precautions. Cont to increase pt's endurance and overall weakness for all adl tasks.Cont with the goals by the supervising OTR. Speech Therapy Update: Moderate pharyngeal dysphagia resulting in SILENT aspiration with thin liquids. Patient currently on and Regular diet with nectar thick liquids. Working on execution/timing of chin tuck amneuver with MANAGER SOCIAL and making good gains ; may possible be upgraded to thin liquids with a chin tuck 08/27 if consistently used. Cognitive linguistic impairment improved to Moderate Summary: Patient's care plan and penitentiary goals have been reviewed and revised as necessary. Please see the Rehabilitation Signature page for all necessary signatures.
--- NOTE | 2018-12-19 15:51 | FAST ---
ENCOUNTER DATE AND TIME: 12/18/2018 08:00 (CDT) NAME TYLOR GUZMAN DATE OF : 1950 DATE OF ADMISSION: 12/12/2018 19:50 (CDT) PHONE: AGE: 68 N# [id number] GENDER: Male ENCOUNTER PHYSICIAN: Dr. New Blunt M.D. ADMISSION DIAGNOSIS: - Cardiac 09 - Cardiac Disorders (09) CABG x4. EATING: Activity did not occur on this shift EATING - SCORE: 0-UNK GROOMING: Activity did not occur on this shift GROOMING - SCORE: 0-UNK BATHING: Activity did not occur on this shift BATHING - SCORE: 0-UNK DRESSING - UPPER BODY: Activity did not occur on this shift Patient is not dressing in public clothing ARTICLES SCORE Total number of steps: 0 DRESSING - UPPER BODY - SCORE: 0-UNK DRESSING - LOWER BODY: Activity did not occur on this shift Patient is not dressing in public clothing ARTICLES SCORE Total number of steps: 0 DRESSING - LOWER BODY - SCORE: 0-UNK TOILETING: Activity did not occur on this shift TOILETING - SCORE: 0-UNK BLADDER MANAGEMENT: Activity did not occur on this shift BLADDER MANAGEMENT - SCORE: 7-IND BOWEL MANAGEMENT: Activity did not occur on this shift BOWEL MANAGEMENT - SCORE: 7-IND TRANSFERS: BED, CHAIR, WHEELCHAIR: TRANSFERS: BED, CHAIR, WHEELCHAIR - STEP 1: Does the patient require assistance of a person or device, or need extra time with bed, chair, or whe elchair transfers? Yes. TRANSFERS: BED, CHAIR, WHEELCHAIR - STEP 2: Does the patient require the assistance of a helper? Yes. TRANSFERS: BED, CHAIR, WHEELCHAIR - STEP 3: How much assistance does the patient require from the helper? Steadying/guiding assistance TRANSFERS: BED, CHAIR, WHEELCHAIR - SCORE: 4-MIN TRANSFERS: TOILET: Activity did not occur on this shift TRANSFERS: TOILET - SCORE: 0-UNK TRANSFERS: SHOWER: Activity did not occur on this shift TRANSFERS: SHOWER - SCORE: 0-UNK TRANSFERS: TUB: Activity did not occur on this shift TRANSFERS: TUB - SCORE: 0-UNK LOCOMOTION: WALK: LOCOMOTION: WALK - STEP 1: Does the patient need help from a person or device, or need extra time to walk 150 feet? Yes. LOCOMOTION: WALK - STEP 2: How much assistance does the patient require to walk a minimum of 150 feet? Only incidental help such as contact guarding or steadying LOCOMOTION: WALK - SCORE: 4-MIN LOCOMOTION: WHEELCHAIR: LOCOMOTION: WHEELCHAIR - STEP 1: Does the patient need help to go 150 feet in a wheelchair? Yes. LOCOMOTION: WHEELCHAIR - STEP 2: How much assistance does the patient need from the helper? Only supervision, cuing, or coaxing LOCOMOTION: WHEELCHAIR - SCORE: 5-SUP LOCOMOTION: STAIRS: Activity did not occur on this shift LOCOMOTION: STAIRS - SCORE: 0-UNK COMPREHENSION: COMPREHENSION - SCORE: 0-UNK EXPRESSION EXPRESSION - SCORE: 0-UNK SOCIAL INTERACTION: SOCIAL INTERACTION - SCORE: 0-UNK PROBLEM SOLVING: PROBLEM SOLVING - SCORE: 0-UNK MEMORY: MEMORY - SCORE: 0-UNK SIGNATURE PANEL: The following modified sections: Transfers: Bed, Chair, Wheelchair - Score, Transfers: Toilet - Score , Locomotion: Walk - Score, Locomotion: Wheelchair - Score, Locomotion: Stairs - Score were [gil vogt] signed by Alon Kingston PTA on SatDec 19 2018 15:51:09 GMT-0500 (Central Daylight Time)
[2018-12-19] MEDS: ENOXAPARIN 30 MG/0.3 ML SQ SCH (16:52)
--- NOTE | 2018-12-19 18:10 | FAST ---
SHIFT START DATE/TIME: 12/19/2018 07:00 (CDT) SHIFT END DATE/TIME: 12/19/2018 19:00 (CDT) NAME TYLOR GUZMAN DATE OF : 1950 DATE OF ADMISSION: 12/12/2018 19:50 (CDT) PHONE: AGE: 68 N# [id number] GENDER: Male ENCOUNTER PHYSICIAN: Dr. New Blunt M.D. ADMISSION DIAGNOSIS: - Cardiac 09 - Cardiac Disorders (09) CABG x4. EATING: EATING - STEP 1: Does the patient require the assistance of a person or device, or need extra time when eating? Yes. EATING - STEP 2: Does the patient require the assistance of a helper? No, patient only requires an assistive device, O R s/he takes more than reasonable time to eat, OR there is a safety concern, OR s/he requires modifie d food consistency EATING - SCORE: 6-MARCELINA GROOMING: Activity did not occur on this shift GROOMING - SCORE: 0-UNK BATHING: Activity did not occur on this shift BATHING - SCORE: 0-UNK DRESSING - UPPER BODY: Activity did not occur on this shift ARTICLES SCORE Total number of steps: 0 DRESSING - UPPER BODY - SCORE: 0-UNK DRESSING - LOWER BODY: Activity did not occur on this shift ARTICLES SCORE Total number of steps: 0 DRESSING - LOWER BODY - SCORE: 0-UNK TOILETING: TOILETING - STEP 1: Does the patient require the assistance of a person or device, or need extra time with toileting? Yes . TOILETING - STEP 2: Does the patient require the assistance of a helper? No. TOILETING - SCORE: 6-MARCELINA BLADDER MANAGEMENT: BLADDER MANAGEMENT - STEP 1: Does the patient control the bladder completely and intentionally without equipment or devices or med ications, and is always continent? No. BLADDER MANAGEMENT - STEP 2: Does the patient require the assistance of a helper? Yes. BLADDER MANAGEMENT - STEP 3: How much assistance does the patient require from the helper? Only set-up of equipment - such as plac ing it within reach of the patient or emptying a device - to maintain either satisfactory voiding pat tern or managing an external device, such as an absorbent pad, ileal device, or catheter BLADDER MANAGEMENT - SCORE: 5-SUP BLADDER MANAGEMENT - FREQUENCY OF ACCIDENTS: BLADDER MANAGEMENT(FA) - STEP 1: How many accidents has the patient had during the current shift? 1 BOWEL MANAGEMENT: BOWEL MANAGEMENT - STEP 1: Does the patient control bowels completely and intentionally without equipment devices or medications AND is always continent? Yes. BOWEL MANAGEMENT - SCORE: 7-IND BOWEL MANAGEMENT - FREQUENCY OF ACCIDENTS: BOWEL MANAGEMENT(FA) - STEP 1: How many accidents has the patient had during the current shift? 0 TRANSFERS: BED, CHAIR, WHEELCHAIR: TRANSFERS: BED, CHAIR, WHEELCHAIR - STEP 1: Does the patient require assistance of a person or device, or need extra time with bed, chair, or whe elchair transfers? Yes. TRANSFERS: BED, CHAIR, WHEELCHAIR - STEP 2: Does the patient require the assistance of a helper? Yes. TRANSFERS: BED, CHAIR, WHEELCHAIR - STEP 3: How much assistance does the patient require from the helper? Steadying/guiding assistance TRANSFERS: BED, CHAIR, WHEELCHAIR - SCORE: 4-MIN TRANSFERS: TOILET: TRANSFERS: TOILET - STEP 1: Does the patient require the assistance of a person or device, or need extra time with toilet transfe rs? Yes. TRANSFERS: TOILET - STEP 2: Does the patient require the assistance of a helper? Yes. TRANSFERS: TOILET - STEP 3: How much assistance does the patient require from the helper? Patient performs half or more of the tr ansferring tasks TRANSFERS: TOILET - STEP 4: Does the patient need only incidental help such as contact guard or steadying during toilet transfer? Yes. TRANSFERS: TOILET - SCORE: 4-MIN TRANSFERS: SHOWER: Activity did not occur on this shift TRANSFERS: SHOWER - SCORE: 0-UNK TRANSFERS: TUB: Activity did not occur on this shift TRANSFERS: TUB - SCORE: 0-UNK LOCOMOTION: WALK: Activity did not occur on this shift LOCOMOTION: WALK - SCORE: 0-UNK LOCOMOTION: WHEELCHAIR: Activity did not occur on this shift LOCOMOTION: WHEELCHAIR - SCORE: 0-UNK COMPREHENSION: COMPREHENSION - SCORE: 0-UNK EXPRESSION EXPRESSION - SCORE: 0-UNK SOCIAL INTERACTION: SOCIAL INTERACTION - SCORE: 0-UNK PROBLEM SOLVING: PROBLEM SOLVING - SCORE: 0-UNK MEMORY: MEMORY - SCORE: 0-UNK SIGNATURE PANEL: The following modified sections: Eating - Score, Grooming - Score, Bathing - Score, Dressing - Upper Body - Score, Dressing - Lower Body - Score, Toileting - Score, Bladder Management - Score, Bowel Man agement - Score, Transfers: Shower - Score, Transfers: Toilet - Score, Transfers: Bed, Chair, Wheelch air - Score, Transfers: Tub - Score, Locomotion: Walk - Score, Locomotion: Wheelchair - Score, Compre hension - Score, Expression - Score, Social Interaction - Score, Problem Solving - Score, Memory - Sc ore were [electronically] signed by Renee Woody CNA on SatDec 19 2018 18:09:40 T-0500 (Centra l Daylight Time)
[2018-12-19] MEDS: DOCUSATE NA/SENNA CONC 1 TAB PO SCH (20:00)
[2018-12-19] MEDS: MELATONIN 3 MG TABLET PO PRN (20:00)
[2018-12-19] MEDS: ATORVASTATIN 40 MG TAB PO SCH (20:00)
--- NOTE | 2018-12-20 02:25 | FAST ---
SHIFT START DATE/TIME: 12/19/2018 19:00 (CDT) SHIFT END DATE/TIME: 12/20/2018 07:00 (CDT) NAME TYLOR GUZMAN DATE OF : 1950 DATE OF ADMISSION: 12/12/2018 19:50 (CDT) PHONE: AGE: 68 SSN# [id number] GENDER: Male ENCOUNTER PHYSICIAN: Dr. New Blunt M.D. ADMISSION DIAGNOSIS: - Cardiac 09 - Cardiac Disorders (09) CABG x4. EATING: Activity did not occur on this shift EATING - SCORE: 0-UNK GROOMING: Activity did not occur on this shift GROOMING - SCORE: 0-UNK BATHING: Activity did not occur on this shift BATHING - SCORE: 0-UNK DRESSING - UPPER BODY: Patient is not dressing in public clothing ARTICLES SCORE Total number of steps: 0 DRESSING - UPPER BODY - SCORE: 0-UNK DRESSING - LOWER BODY: Patient is not dressing in public clothing ARTICLES SCORE Total number of steps: 0 DRESSING - LOWER BODY - SCORE: 0-UNK TOILETING: TOILETING - STEP 1: Does the patient require the assistance of a person or device, or need extra time with toileting? Yes . TOILETING - STEP 2: Does the patient require the assistance of a helper? Yes. TOILETING - STEP 3: How much assistance does the patient require from the helper? Hands-on assistance from the helper TOILETING - STEP 4: Of the 3 tasks: 1) Adjusting clothing prior to use, 2) Cleansing of perineal area, 3) Adjusting clot halley after use; How many tasks does the patient perform WITHOUT assistance of the helper? Three tasks with steadying assistance from the helper TOILETING - SCORE: 4-MIN BLADDER MANAGEMENT: BLADDER MANAGEMENT - STEP 1: Does the patient control the bladder completely and intentionally without equipment or devices or med ications, and is always continent? No. BLADDER MANAGEMENT - STEP 2: Does the patient require the assistance of a helper? Yes. BLADDER MANAGEMENT - STEP 3: How much assistance does the patient require from the helper? Only set-up of equipment - such as plac ing it within reach of the patient or emptying a device - to maintain either satisfactory voiding pat tern or managing an external device, such as an absorbent pad, ileal device, or catheter BLADDER MANAGEMENT - SCORE: 5-SUP BOWEL MANAGEMENT: Activity did not occur on this shift BOWEL MANAGEMENT - SCORE: 7-IND TRANSFERS: BED, CHAIR, WHEELCHAIR: Activity did not occur on this shift TRANSFERS: BED, CHAIR, WHEELCHAIR - SCORE: 0-UNK TRANSFERS: TOILET: Activity did not occur on this shift TRANSFERS: TOILET - SCORE: 0-UNK TRANSFERS: SHOWER: Activity did not occur on this shift TRANSFERS: SHOWER - SCORE: 0-UNK TRANSFERS: TUB: Activity did not occur on this shift TRANSFERS: TUB - SCORE: 0-UNK LOCOMOTION: WALK: Activity did not occur on this shift LOCOMOTION: WALK - SCORE: 0-UNK LOCOMOTION: WHEELCHAIR: Activity did not occur on this shift LOCOMOTION: WHEELCHAIR - SCORE: 0-UNK COMPREHENSION: COMPREHENSION: TYPE: Both COMPREHENSION - STEP 1: Does the patient require help from a person or device, or need extra time to understand complex and a bstract ideas (such as current events, finances, discharge planning, medical issues, relationships, e tc)? Yes. COMPREHENSION - STEP 2: Does the patient require help to understand questions or statements about basic needs or ideas (such as hunger, thirst, sleep, safety, daily schedule, room location, or discomfort) half or more of the t rosibel? No. COMPREHENSION - STEP 3: How often does the patient need help to understand directions and conversation about basic needs? 10% - 24% of the time COMPREHENSION - SCORE: 4-MIN EXPRESSION EXPRESSION: TYPE: Both EXPRESSION - STEP 1: Does the patient require help from a person or device, or need extra time expressing complex and abst ract ideas (such as current events, finances, discharge planning, medical issues, relationships, etc) ? Yes. EXPRESSION - STEP 2: Does the patient require help to express basic necessities or ideas (such as hunger, thirst, sleep, s afety, daily schedule, room location, or discomfort) half or more of the time? No. EXPRESSION - STEP 3: How often does the patient need help to express directions and conversation about basic needs? 10-24% of the time EXPRESSION - SCORE: 4-MIN SOCIAL INTERACTION: SOCIAL INTERACTION - STEP 1: Does the patient require a helper to interact with others in social and therapeutic situations? Yes. SOCIAL INTERACTION - STEP 2: Does the patient interact appropriately half or more of the time? Yes. SOCIAL INTERACTION - STEP 3: How often does the patient need help to interact appropriately? Less than 10% of the time SOCIAL INTERACTION - SCORE: 5-SUP PROBLEM SOLVING: PROBLEM SOLVING - STEP 1: Does the patient need help from a person or device, or need extra time to solve complex problems such as managing a checking account or confronting interpersonal problems? Yes. PROBLEM SOLVING - STEP 2: Does the patient solve basic routine problems half or more of the time? Yes. PROBLEM SOLVING - STEP 3: How often does the patient need help to solve basic routine problems? 10%-24% of the time PROBLEM SOLVING - SCORE: 4-MIN MEMORY: MEMORY - STEP 1: Does the patient need help from a person or device, or need extra time to remember frequently encount ered people, daily routines, and executing requests? Yes. MEMORY - STEP 2: How often does the patient need help to remember frequently encountered people, daily routines, and e xecuting requests? 10% - 24% of the time MEMORY - SCORE: 4-MIN
[2018-12-20 05:38] VITALS: BMI 23.8
[2018-12-20] MEDS: PANTOPRAZOLE 40MG TABLET PO SCH (07:12)
[2018-12-20] MEDS: AMLODIPINE 10 MG TAB PO SCH (08:00)
[2018-12-20] MEDS: CLOPIDOGREL 75 MG TABLET PO SCH (08:30)
[2018-12-20] MEDS: FERROUS SULFATE 325 MG TAB PO SCH (08:30)
[2018-12-20] MEDS: METOPROLOL TAR 50 MG TAB PO SCH (08:30)
[2018-12-20] MEDS: FE SULF/FA/VIT B COMP & C TAB PO SCH (08:30)
[2018-12-20] MEDS: ASPIRIN EC 81 MG TAB PO SCH (08:30)
[2018-12-20] MEDS: PROMOD 30 ML DOSE PO SCH ×2 (10:11→19:45)
[2018-12-20] MEDS: ENOXAPARIN 30 MG/0.3 ML SQ SCH (16:27)
[2018-12-20] MEDS: AMLODIPINE 5 MG TAB PO SCH (19:45)
[2018-12-20] MEDS: TRAMADOL HCL 50 MG TAB PO PRN (19:47)
[2018-12-20] MEDS: DOCUSATE NA/SENNA CONC 1 TAB PO SCH (19:59)
[2018-12-20] MEDS: MELATONIN 3 MG TABLET PO PRN (19:59)
[2018-12-20] MEDS: ATORVASTATIN 40 MG TAB PO SCH (19:59)
--- NOTE | 2018-12-21 01:21 | FAST ---
SHIFT START DATE/TIME: 12/20/2018 19:00 (CDT) SHIFT END DATE/TIME: 12/21/2018 07:00 (CDT) NAME TYLOR GUZMAN DATE OF : 1950 DATE OF ADMISSION: 12/12/2018 19:50 (CDT) PHONE: AGE: 68 SSN# [id number] GENDER: Male ENCOUNTER PHYSICIAN: Dr. New Blunt M.D. ADMISSION DIAGNOSIS: - Cardiac 09 - Cardiac Disorders (09) CABG x4. EATING: Activity did not occur on this shift EATING - SCORE: 0-UNK GROOMING: Activity did not occur on this shift GROOMING - SCORE: 0-UNK BATHING: Activity did not occur on this shift BATHING - SCORE: 0-UNK DRESSING - UPPER BODY: Patient is not dressing in public clothing ARTICLES SCORE Total number of steps: 0 DRESSING - UPPER BODY - SCORE: 0-UNK DRESSING - LOWER BODY: Patient is not dressing in public clothing ARTICLES SCORE Total number of steps: 0 DRESSING - LOWER BODY - SCORE: 0-UNK TOILETING: TOILETING - STEP 1: Does the patient require the assistance of a person or device, or need extra time with toileting? Yes . TOILETING - STEP 2: Does the patient require the assistance of a helper? Yes. TOILETING - STEP 3: How much assistance does the patient require from the helper? Hands-on assistance from the helper TOILETING - STEP 4: Of the 3 tasks: 1) Adjusting clothing prior to use, 2) Cleansing of perineal area, 3) Adjusting clot halley after use; How many tasks does the patient perform WITHOUT assistance of the helper? Three tasks with steadying assistance from the helper TOILETING - SCORE: 4-MIN BLADDER MANAGEMENT: BLADDER MANAGEMENT - STEP 1: Does the patient control the bladder completely and intentionally without equipment or devices or med ications, and is always continent? No. BLADDER MANAGEMENT - STEP 2: Does the patient require the assistance of a helper? Yes. BLADDER MANAGEMENT - STEP 3: How much assistance does the patient require from the helper? Only set-up of equipment - such as plac ing it within reach of the patient or emptying a device - to maintain either satisfactory voiding pat tern or managing an external device, such as an absorbent pad, ileal device, or catheter BLADDER MANAGEMENT - SCORE: 5-SUP BOWEL MANAGEMENT: Activity did not occur on this shift BOWEL MANAGEMENT - SCORE: 7-IND TRANSFERS: BED, CHAIR, WHEELCHAIR: Activity did not occur on this shift TRANSFERS: BED, CHAIR, WHEELCHAIR - SCORE: 0-UNK TRANSFERS: TOILET: Activity did not occur on this shift TRANSFERS: TOILET - SCORE: 0-UNK TRANSFERS: SHOWER: Activity did not occur on this shift TRANSFERS: SHOWER - SCORE: 0-UNK TRANSFERS: TUB: Activity did not occur on this shift TRANSFERS: TUB - SCORE: 0-UNK LOCOMOTION: WALK: Activity did not occur on this shift LOCOMOTION: WALK - SCORE: 0-UNK LOCOMOTION: WHEELCHAIR: Activity did not occur on this shift LOCOMOTION: WHEELCHAIR - SCORE: 0-UNK COMPREHENSION: COMPREHENSION: TYPE: Both COMPREHENSION - STEP 1: Does the patient require help from a person or device, or need extra time to understand complex and a bstract ideas (such as current events, finances, discharge planning, medical issues, relationships, e tc)? Yes. COMPREHENSION - STEP 2: Does the patient require help to understand questions or statements about basic needs or ideas (such as hunger, thirst, sleep, safety, daily schedule, room location, or discomfort) half or more of the t rosibel? No. COMPREHENSION - STEP 3: How often does the patient need help to understand directions and conversation about basic needs? 25% - 49% of the time COMPREHENSION - SCORE: 3-MOD EXPRESSION EXPRESSION: TYPE: Both EXPRESSION - STEP 1: Does the patient require help from a person or device, or need extra time expressing complex and abst ract ideas (such as current events, finances, discharge planning, medical issues, relationships, etc) ? No. EXPRESSION - STEP 2: Does the patient need extra time, require an assistive device (such as augmentive communication syste m or a communication board), OR does s/he have mild difficulty expressing complex and abstract ideas (including mild dysarthria or mild word-find problems)? Yes. EXPRESSION - SCORE: 6-MARCELINA SOCIAL INTERACTION: SOCIAL INTERACTION - STEP 1: Does the patient require a helper to interact with others in social and therapeutic situations? No. SOCIAL INTERACTION - STEP 2: Does the patient need extra time in social situations, OR does s/he interact with staff, other patien ts, and family members ONLY in structured environments, OR does s/he require medication for social in teraction? Yes, patient needs extra time SOCIAL INTERACTION - SCORE: 6-MARCELINA PROBLEM SOLVING: PROBLEM SOLVING - STEP 1: Does the patient need help from a person or device, or need extra time to solve complex problems such as managing a checking account or confronting interpersonal problems? Yes. PROBLEM SOLVING - STEP 2: Does the patient solve basic routine problems half or more of the time? Yes. PROBLEM SOLVING - STEP 3: How often does the patient need help to solve basic routine problems? 25%-49% of the time PROBLEM SOLVING - SCORE: 3-MOD MEMORY: MEMORY - STEP 1: Does the patient need help from a person or device, or need extra time to remember frequently encount ered people, daily routines, and executing requests? Yes. MEMORY - STEP 2: How often does the patient need help to remember frequently encountered people, daily routines, and e xecuting requests? 25% - 49% of the time MEMORY - SCORE: 3-MOD SIGNATURE PANEL: The following modified sections: Eating - Score, Grooming - Score, Dressing - Upper Body - Score, Vimal ssing - Lower Body - Score, Toileting - Score, Bladder Management - Score, Bowel Management - Score, Transfers: Bed, Chair, Wheelchair - Score, Transfers: Toilet - Score, Transfers: Shower - Score, Decker sfers: Tub - Score, Locomotion: Walk - Score, Locomotion: Wheelchair - Score, Comprehension - Score, Expression - Score, Social Interaction - Score, Problem Solving - Score, Memory - Score were [electro nically] signed by Hattie Palafox CNA on SatDec 21 2018 01:20:33 GMT-0500 (Central Daylight Time)
[2018-12-21 06:38] LABS: Absolute Lymphocytes (CBC) 1.5 K/uL (0.7-4.9); Absolute Monocytes 0.7 K/uL (0.1-1.3); Absolute Neutrophil 5.3 K/uL (1.8-8.0); Basophils % 0.2 % (0-1.3); MPV 9.5 fL (7.6-11.3); Monocytes % 8.7 % (3.3-12.3); RBC Red Blood Cell Count 3.32 M/uL (4.33-5.43)
[2018-12-21 06:59] LABS: Potassium 4.5 mmol/L (3.5-5.1)
[2018-12-21] MEDS ORDERED: NACHLORIDE 0.45% 1,000 ML IV SCH (07:00)
[2018-12-21] MEDS: AMLODIPINE 5 MG TAB PO SCH ×2 (07:04→20:29)
[2018-12-21] MEDS: PANTOPRAZOLE 40MG TABLET PO SCH (07:05)
[2018-12-21] MEDS: CLOPIDOGREL 75 MG TABLET PO SCH (08:32)
[2018-12-21] MEDS: FE SULF/FA/VIT B COMP & C TAB PO SCH (08:32)
[2018-12-21] MEDS: METOPROLOL TAR 50 MG TAB PO SCH (08:32)
[2018-12-21] MEDS: ASPIRIN EC 81 MG TAB PO SCH (08:32)
[2018-12-21] MEDS: FERROUS SULFATE 325 MG TAB PO SCH (08:32)
[2018-12-21] MEDS: PROMOD 30 ML DOSE PO SCH ×2 (08:33→20:29)
[2018-12-21] MEDS: ENOXAPARIN 30 MG/0.3 ML SQ SCH (16:08)
--- NOTE | 2018-12-21 16:30 | FAST ---
SHIFT START DATE/TIME: 12/20/2018 07:00 (CDT) SHIFT END DATE/TIME: 12/20/2018 19:00 (CDT) NAME TYLOR GUZMAN DATE OF : 1950 DATE OF ADMISSION: 12/12/2018 19:50 (CDT) PHONE: AGE: 68 SSN# [id number] GENDER: Male ENCOUNTER PHYSICIAN: Dr. New Blunt M.D. ADMISSION DIAGNOSIS: - Cardiac 09 - Cardiac Disorders (09) CABG x4. EATING: EATING - STEP 1: Does the patient require the assistance of a person or device, or need extra time when eating? Yes. EATING - STEP 2: Does the patient require the assistance of a helper? Yes. EATING - STEP 3: Does the patient perform half or more of the eating tasks? Yes. EATING - STEP 4: Does the patient need only supervision, cuing, coaxing OR help to apply an orthosis OR help to cut fo od, open containers, pour liquids, or butter bread? Yes. EATING - SCORE: 5-SUP GROOMING: Comb/brush hair Wash, rinse, and dry face Wash, rinse, and dry hands GROOMING - STEP 1: Does the patient require the assistance of a person or device, or need extra time when grooming? Yes. GROOMING - STEP 2: Does the patient require the assistance of a helper? Yes. GROOMING - STEP 3: How much assistance does the patient require from the helper? Cuing, coaxing, instructions, or encour agement for completion of grooming GROOMING - SCORE: 5-SUP BATHING: Activity did not occur on this shift BATHING - SCORE: 0-UNK DRESSING - UPPER BODY: Button down shirt or blouse - NOT tucked in (four steps) ARTICLES SCORE Total number of steps: 4 DRESSING - UPPER BODY - STEP 1: Does the patient require help from a person or device, or need extra time when dressing above the ankit st? Yes. DRESSING - UPPER BODY - STEP 2: Does the patient require the assistance of a helper? Yes. DRESSING - UPPER BODY - STEP 3: Does the helper touch the patient while dressing? No. DRESSING - UPPER BODY - SCORE: 5-SUP DRESSING - LOWER BODY: Elastic waist pants (three steps) Tied or buckled shoe - Left foot (two steps) Tied or buckled shoe - Right foot (two steps) ARTICLES SCORE Total number of steps: 7 DRESSING - LOWER BODY - STEP 1: Does the patient require help from a person or device, or need extra time when dressing below the ankit st? Yes. DRESSING - LOWER BODY - STEP 2: Does the patient require the assistance of a helper? Yes. DRESSING - LOWER BODY - STEP 3: Does the helper touch the patient while dressing? Yes. DRESSING - LOWER BODY - STEP 4: How many of the total steps does the patient complete on his/her own? 4 DRESSING - LOWER BODY - SCORE: 3-MOD TOILETING: TOILETING - STEP 1: Does the patient require the assistance of a person or device, or need extra time with toileting? Yes . TOILETING - STEP 2: Does the patient require the assistance of a helper? Yes. TOILETING - STEP 3: How much assistance does the patient require from the helper? Hands-on assistance from the helper TOILETING - STEP 4: Of the 3 tasks: 1) Adjusting clothing prior to use, 2) Cleansing of perineal area, 3) Adjusting clot halley after use; How many tasks does the patient perform WITHOUT assistance of the helper? Two tasks TOILETING - SCORE: 3-MOD BLADDER MANAGEMENT: BLADDER MANAGEMENT - STEP 1: Does the patient control the bladder completely and intentionally without equipment or devices or med ications, and is always continent? No. BLADDER MANAGEMENT - STEP 2: Does the patient require the assistance of a helper? Yes. BLADDER MANAGEMENT - STEP 3: How much assistance does the patient require from the helper? Only set-up of equipment - such as plac ing it within reach of the patient or emptying a device - to maintain either satisfactory voiding pat tern or managing an external device, such as an absorbent pad, ileal device, or catheter BLADDER MANAGEMENT - SCORE: 5-SUP BLADDER MANAGEMENT - FREQUENCY OF ACCIDENTS: BLADDER MANAGEMENT(FA) - STEP 1: How many accidents has the patient had during the current shift? 0 BOWEL MANAGEMENT: Activity did not occur on this shift BOWEL MANAGEMENT - SCORE: 7-IND BOWEL MANAGEMENT - FREQUENCY OF ACCIDENTS: BOWEL MANAGEMENT(FA) - STEP 1: How many accidents has the patient had during the current shift? 0 TRANSFERS: BED, CHAIR, WHEELCHAIR: TRANSFERS: BED, CHAIR, WHEELCHAIR - STEP 1: Does the patient require assistance of a person or device, or need extra time with bed, chair, or whe elchair transfers? Yes. TRANSFERS: BED, CHAIR, WHEELCHAIR - STEP 2: Does the patient require the assistance of a helper? Yes. TRANSFERS: BED, CHAIR, WHEELCHAIR - STEP 3: How much assistance does the patient require from the helper? Steadying/guiding assistance TRANSFERS: BED, CHAIR, WHEELCHAIR - SCORE: 4-MIN TRANSFERS: TOILET: TRANSFERS: TOILET - STEP 1: Does the patient require the assistance of a person or device, or need extra time with toilet transfe rs? Yes. TRANSFERS: TOILET - STEP 2: Does the patient require the assistance of a helper? Yes. TRANSFERS: TOILET - STEP 3: How much assistance does the patient require from the helper? Patient performs half or more of the tr ansferring tasks TRANSFERS: TOILET - STEP 4: Does the patient need only incidental help such as contact guard or steadying during toilet transfer? Yes. TRANSFERS: TOILET - SCORE: 4-MIN TRANSFERS: SHOWER: Activity did not occur on this shift TRANSFERS: SHOWER - SCORE: 0-UNK TRANSFERS: TUB: Activity did not occur on this shift TRANSFERS: TUB - SCORE: 0-UNK LOCOMOTION: WALK: Activity did not occur on this shift LOCOMOTION: WALK - SCORE: 0-UNK LOCOMOTION: WHEELCHAIR: Activity did not occur on this shift LOCOMOTION: WHEELCHAIR - SCORE: 0-UNK COMPREHENSION: COMPREHENSION: TYPE: Both COMPREHENSION - STEP 1: Does the patient require help from a person or device, or need extra time to understand complex and a bstract ideas (such as current events, finances, discharge planning, medical issues, relationships, e tc)? Yes. COMPREHENSION - STEP 2: Does the patient require help to understand questions or statements about basic needs or ideas (such as hunger, thirst, sleep, safety, daily schedule, room location, or discomfort) half or more of the t rosibel? No. COMPREHENSION - STEP 3: How often does the patient need help to understand directions and conversation about basic needs? 25% - 49% of the time COMPREHENSION - SCORE: 3-MOD EXPRESSION EXPRESSION: TYPE: Both EXPRESSION - STEP 1: Does the patient require help from a person or device, or need extra time expressing complex and abst ract ideas (such as current events, finances, discharge planning, medical issues, relationships, etc) ? Yes. EXPRESSION - STEP 2: Does the patient require help to express basic necessities or ideas (such as hunger, thirst, sleep, s afety, daily schedule, room location, or discomfort) half or more of the time? No. EXPRESSION - STEP 3: How often does the patient need help to express directions and conversation about basic needs? Less t soares 10% of the time EXPRESSION - SCORE: 5-SUP SOCIAL INTERACTION: SOCIAL INTERACTION - STEP 1: Does the patient require a helper to interact with others in social and therapeutic situations? No. SOCIAL INTERACTION - STEP 2: Does the patient need extra time in social situations, OR does s/he interact with staff, other patien ts, and family members ONLY in structured environments, OR does s/he require medication for social in teraction? No. SOCIAL INTERACTION - SCORE: 7-IND PROBLEM SOLVING: PROBLEM SOLVING - STEP 1: Does the patient need help from a person or device, or need extra time to solve complex problems such as managing a checking account or confronting interpersonal problems? Yes. PROBLEM SOLVING - STEP 2: Does the patient solve basic routine problems half or more of the time? Yes. PROBLEM SOLVING - STEP 3: How often does the patient need help to solve basic routine problems? Less than 10% of the time PROBLEM SOLVING - SCORE: 5-SUP MEMORY: MEMORY - STEP 1: Does the patient need help from a person or device, or need extra time to remember frequently encount ered people, daily routines, and executing requests? Yes. MEMORY - STEP 2: How often does the patient need help to remember frequently encountered people, daily routines, and e xecuting requests? More than 50% of the time MEMORY - STEP 3: Does the patient need help to remember all of the time OR does s/he not effectively recognize and rem ember? Yes. Patient needs help to remember ALL the time OR does not effectively recognize and remembe r MEMORY - SCORE: 1-DEP SIGNATURE PANEL: The following modified sections: Eating - Score, Grooming - Score, Bathing - Score, Dressing - Upper Body - Score, Dressing - Lower Body - Score, Toileting - Score, Bowel Management - Score, Transfers: Bed, Chair, Wheelchair - Score, Transfers: Toilet - Score, Transfers: Shower - Score, Transfers: Tub - Score, Locomotion: Walk - Score, Locomotion: Wheelchair - Score, Comprehension - Score, Expression - Score, Social Interaction - Score, Problem Solving - Score, Bladder Management - Score, Memory - Sc ore were [electronically] signed by Sindhu Engle C.N.A. on SatDec 21 2018 16:29:23 T-0500 (Centra l Daylight Time)
--- NOTE | 2018-12-21 16:40 | FAST ---
SHIFT START DATE/TIME: 12/21/2018 07:00 (CDT) SHIFT END DATE/TIME: 12/21/2018 19:00 (CDT) NAME TYLOR GUZMAN DATE OF : 1950 DATE OF ADMISSION: 12/12/2018 19:50 (CDT) PHONE: AGE: 68 SSN# [id number] GENDER: Male ENCOUNTER PHYSICIAN: Dr. New Blunt M.D. ADMISSION DIAGNOSIS: - Cardiac 09 - Cardiac Disorders (09) CABG x4. EATING: EATING - STEP 1: Does the patient require the assistance of a person or device, or need extra time when eating? Yes. EATING - STEP 2: Does the patient require the assistance of a helper? Yes. EATING - STEP 3: Does the patient perform half or more of the eating tasks? Yes. EATING - STEP 4: Does the patient need only supervision, cuing, coaxing OR help to apply an orthosis OR help to cut fo od, open containers, pour liquids, or butter bread? Yes. EATING - SCORE: 5-SUP GROOMING: Activity did not occur on this shift GROOMING - SCORE: 0-UNK BATHING: Activity did not occur on this shift BATHING - SCORE: 0-UNK DRESSING - UPPER BODY: Activity did not occur on this shift ARTICLES SCORE Total number of steps: 0 DRESSING - UPPER BODY - SCORE: 0-UNK DRESSING - LOWER BODY: Activity did not occur on this shift ARTICLES SCORE Total number of steps: 0 DRESSING - LOWER BODY - SCORE: 0-UNK TOILETING: TOILETING - STEP 1: Does the patient require the assistance of a person or device, or need extra time with toileting? Yes . TOILETING - STEP 2: Does the patient require the assistance of a helper? Yes. TOILETING - STEP 3: How much assistance does the patient require from the helper? Hands-on assistance from the helper TOILETING - STEP 4: Of the 3 tasks: 1) Adjusting clothing prior to use, 2) Cleansing of perineal area, 3) Adjusting clot halley after use; How many tasks does the patient perform WITHOUT assistance of the helper? Two tasks TOILETING - SCORE: 3-MOD BLADDER MANAGEMENT: BLADDER MANAGEMENT - STEP 1: Does the patient control the bladder completely and intentionally without equipment or devices or med ications, and is always continent? No. BLADDER MANAGEMENT - STEP 2: Does the patient require the assistance of a helper? Yes. BLADDER MANAGEMENT - STEP 3: How much assistance does the patient require from the helper? Only set-up of equipment - such as plac ing it within reach of the patient or emptying a device - to maintain either satisfactory voiding pat tern or managing an external device, such as an absorbent pad, ileal device, or catheter BLADDER MANAGEMENT - SCORE: 5-SUP BLADDER MANAGEMENT - FREQUENCY OF ACCIDENTS: BLADDER MANAGEMENT(FA) - STEP 1: How many accidents has the patient had during the current shift? 0 BOWEL MANAGEMENT: Activity did not occur on this shift BOWEL MANAGEMENT - SCORE: 7-IND BOWEL MANAGEMENT - FREQUENCY OF ACCIDENTS: BOWEL MANAGEMENT(FA) - STEP 1: How many accidents has the patient had during the current shift? 0 TRANSFERS: BED, CHAIR, WHEELCHAIR: Activity did not occur on this shift TRANSFERS: BED, CHAIR, WHEELCHAIR - SCORE: 0-UNK TRANSFERS: TOILET: Activity did not occur on this shift TRANSFERS: TOILET - SCORE: 0-UNK TRANSFERS: SHOWER: Activity did not occur on this shift TRANSFERS: SHOWER - SCORE: 0-UNK TRANSFERS: TUB: Activity did not occur on this shift TRANSFERS: TUB - SCORE: 0-UNK LOCOMOTION: WALK: Activity did not occur on this shift LOCOMOTION: WALK - SCORE: 0-UNK LOCOMOTION: WHEELCHAIR: Activity did not occur on this shift LOCOMOTION: WHEELCHAIR - SCORE: 0-UNK COMPREHENSION: COMPREHENSION: TYPE: Both COMPREHENSION - STEP 1: Does the patient require help from a person or device, or need extra time to understand complex and a bstract ideas (such as current events, finances, discharge planning, medical issues, relationships, e tc)? Yes. COMPREHENSION - STEP 2: Does the patient require help to understand questions or statements about basic needs or ideas (such as hunger, thirst, sleep, safety, daily schedule, room location, or discomfort) half or more of the t rosibel? No. COMPREHENSION - STEP 3: How often does the patient need help to understand directions and conversation about basic needs? 25% - 49% of the time COMPREHENSION - SCORE: 3-MOD EXPRESSION EXPRESSION: TYPE: Both EXPRESSION - STEP 1: Does the patient require help from a person or device, or need extra time expressing complex and abst ract ideas (such as current events, finances, discharge planning, medical issues, relationships, etc) ? Yes. EXPRESSION - STEP 2: Does the patient require help to express basic necessities or ideas (such as hunger, thirst, sleep, s afety, daily schedule, room location, or discomfort) half or more of the time? No. EXPRESSION - STEP 3: How often does the patient need help to express directions and conversation about basic needs? Less t soares 10% of the time EXPRESSION - SCORE: 5-SUP SOCIAL INTERACTION: SOCIAL INTERACTION - STEP 1: Does the patient require a helper to interact with others in social and therapeutic situations? No. SOCIAL INTERACTION - STEP 2: Does the patient need extra time in social situations, OR does s/he interact with staff, other patien ts, and family members ONLY in structured environments, OR does s/he require medication for social in teraction? No. SOCIAL INTERACTION - SCORE: 7-IND PROBLEM SOLVING: PROBLEM SOLVING - STEP 1: Does the patient need help from a person or device, or need extra time to solve complex problems such as managing a checking account or confronting interpersonal problems? Yes. PROBLEM SOLVING - STEP 2: Does the patient solve basic routine problems half or more of the time? Yes. PROBLEM SOLVING - STEP 3: How often does the patient need help to solve basic routine problems? Less than 10% of the time PROBLEM SOLVING - SCORE: 5-SUP MEMORY: MEMORY - STEP 1: Does the patient need help from a person or device, or need extra time to remember frequently encount ered people, daily routines, and executing requests? Yes. MEMORY - STEP 2: How often does the patient need help to remember frequently encountered people, daily routines, and e xecuting requests? 25% - 49% of the time MEMORY - SCORE: 3-MOD SIGNATURE PANEL: The following modified sections: Eating - Score, Grooming - Score, Bathing - Score, Dressing - Upper Body - Score, Dressing - Lower Body - Score, Toileting - Score, Bladder Management - Score, Bowel Man agement - Score, Transfers: Bed, Chair, Wheelchair - Score, Transfers: Toilet - Score, Transfers: Dianne wer - Score, Transfers: Tub - Score, Locomotion: Walk - Score, Locomotion: Wheelchair - Score, Compre hension - Score, Expression - Score, Social Interaction - Score, Problem Solving - Score, Memory - Sc ore were [electronically] signed by Sindhu Engle C.N.A. on SatDec 21 2018 16:39:36 T-0500 (Centra l Daylight Time)
[2018-12-21] MEDS: ATORVASTATIN 40 MG TAB PO SCH (20:27)
[2018-12-21] MEDS: DOCUSATE NA/SENNA CONC 1 TAB PO SCH (20:27)
[2018-12-21] MEDS: MELATONIN 3 MG TABLET PO PRN (20:29)
--- NOTE | 2018-12-22 00:29 | FAST ---
SHIFT START DATE/TIME: 12/21/2018 19:00 (CDT) SHIFT END DATE/TIME: 12/22/2018 07:00 (CDT) NAME TYLOR GUZMAN DATE OF : 1950 DATE OF ADMISSION: 12/12/2018 19:50 (CDT) PHONE: AGE: 68 SSN# [id number] GENDER: Male ENCOUNTER PHYSICIAN: Dr. New Blunt M.D. ADMISSION DIAGNOSIS: - Cardiac 09 - Cardiac Disorders (09) CABG x4. EATING: Activity did not occur on this shift EATING - SCORE: 0-UNK GROOMING: Activity did not occur on this shift GROOMING - SCORE: 0-UNK BATHING: Activity did not occur on this shift BATHING - SCORE: 0-UNK DRESSING - UPPER BODY: Patient is not dressing in public clothing ARTICLES SCORE Total number of steps: 0 DRESSING - UPPER BODY - SCORE: 0-UNK DRESSING - LOWER BODY: Patient is not dressing in public clothing ARTICLES SCORE Total number of steps: 0 DRESSING - LOWER BODY - SCORE: 0-UNK TOILETING: TOILETING - STEP 1: Does the patient require the assistance of a person or device, or need extra time with toileting? Yes . TOILETING - STEP 2: Does the patient require the assistance of a helper? Yes. TOILETING - STEP 3: How much assistance does the patient require from the helper? Hands-on assistance from the helper TOILETING - STEP 4: Of the 3 tasks: 1) Adjusting clothing prior to use, 2) Cleansing of perineal area, 3) Adjusting clot halley after use; How many tasks does the patient perform WITHOUT assistance of the helper? One task TOILETING - SCORE: 2-MAX BLADDER MANAGEMENT: BLADDER MANAGEMENT - STEP 1: Does the patient control the bladder completely and intentionally without equipment or devices or med ications, and is always continent? No. BLADDER MANAGEMENT - STEP 2: Does the patient require the assistance of a helper? Yes. BLADDER MANAGEMENT - STEP 3: How much assistance does the patient require from the helper? Only supervision, stand-by, cuing, or c oaxing BLADDER MANAGEMENT - SCORE: 5-SUP BOWEL MANAGEMENT: Activity did not occur on this shift BOWEL MANAGEMENT - SCORE: 7-IND TRANSFERS: BED, CHAIR, WHEELCHAIR: Activity did not occur on this shift TRANSFERS: BED, CHAIR, WHEELCHAIR - SCORE: 0-UNK TRANSFERS: TOILET: Activity did not occur on this shift TRANSFERS: TOILET - SCORE: 0-UNK TRANSFERS: SHOWER: Activity did not occur on this shift TRANSFERS: SHOWER - SCORE: 0-UNK TRANSFERS: TUB: Activity did not occur on this shift TRANSFERS: TUB - SCORE: 0-UNK LOCOMOTION: WALK: Activity did not occur on this shift LOCOMOTION: WALK - SCORE: 0-UNK LOCOMOTION: WHEELCHAIR: Activity did not occur on this shift LOCOMOTION: WHEELCHAIR - SCORE: 0-UNK COMPREHENSION: COMPREHENSION: TYPE: Both COMPREHENSION - STEP 1: Does the patient require help from a person or device, or need extra time to understand complex and a bstract ideas (such as current events, finances, discharge planning, medical issues, relationships, e tc)? Yes. COMPREHENSION - STEP 2: Does the patient require help to understand questions or statements about basic needs or ideas (such as hunger, thirst, sleep, safety, daily schedule, room location, or discomfort) half or more of the t rosibel? No. COMPREHENSION - STEP 3: How often does the patient need help to understand directions and conversation about basic needs? 25% - 49% of the time COMPREHENSION - SCORE: 3-MOD EXPRESSION EXPRESSION: TYPE: Both EXPRESSION - STEP 1: Does the patient require help from a person or device, or need extra time expressing complex and abst ract ideas (such as current events, finances, discharge planning, medical issues, relationships, etc) ? No. EXPRESSION - STEP 2: Does the patient need extra time, require an assistive device (such as augmentive communication syste m or a communication board), OR does s/he have mild difficulty expressing complex and abstract ideas (including mild dysarthria or mild word-find problems)? Yes. EXPRESSION - SCORE: 6-MARCELINA SOCIAL INTERACTION: SOCIAL INTERACTION - STEP 1: Does the patient require a helper to interact with others in social and therapeutic situations? No. SOCIAL INTERACTION - STEP 2: Does the patient need extra time in social situations, OR does s/he interact with staff, other patien ts, and family members ONLY in structured environments, OR does s/he require medication for social in teraction? Yes, patient needs extra time SOCIAL INTERACTION - SCORE: 6-MARCELINA PROBLEM SOLVING: PROBLEM SOLVING - STEP 1: Does the patient need help from a person or device, or need extra time to solve complex problems such as managing a checking account or confronting interpersonal problems? Yes. PROBLEM SOLVING - STEP 2: Does the patient solve basic routine problems half or more of the time? Yes. PROBLEM SOLVING - STEP 3: How often does the patient need help to solve basic routine problems? 25%-49% of the time PROBLEM SOLVING - SCORE: 3-MOD MEMORY: MEMORY - STEP 1: Does the patient need help from a person or device, or need extra time to remember frequently encount ered people, daily routines, and executing requests? No. MEMORY - STEP 2: Does the patient have slight difficulty recognizing frequently encountered people, daily routines, or executing requests without the need for repetition or using self-initiated or environmental cues to remember? Yes. MEMORY - SCORE: 6-MARCELINA SIGNATURE PANEL: The following modified sections: Eating - Score, Grooming - Score, Dressing - Upper Body - Score, Vimal ssing - Lower Body - Score, Toileting - Score, Bladder Management - Score, Bowel Management - Score, Transfers: Bed, Chair, Wheelchair - Score, Transfers: Toilet - Score, Transfers: Shower - Score, Decker sfers: Tub - Score, Locomotion: Walk - Score, Locomotion: Wheelchair - Score, Comprehension - Score, Expression - Score, Social Interaction - Score, Problem Solving - Score, Memory - Score were [electro nically] signed by Hattie Palafox CNA on SatDec 22 2018 00:28:11 GMT-0500 (Central Daylight Time)
[2018-12-22] MEDS: PANTOPRAZOLE 40MG TABLET PO SCH (06:39)
[2018-12-22] MEDS: TRAMADOL HCL 50 MG TAB PO PRN ×2 (07:01→19:21)
[2018-12-22] MEDS: FE SULF/FA/VIT B COMP & C TAB PO SCH (07:01)
[2018-12-22] MEDS: FERROUS SULFATE 325 MG TAB PO SCH (07:01)
[2018-12-22] MEDS: CLOPIDOGREL 75 MG TABLET PO SCH (07:01)
[2018-12-22] MEDS: ASPIRIN EC 81 MG TAB PO SCH (07:01)
[2018-12-22] MEDS: AMLODIPINE 5 MG TAB PO SCH ×2 (07:02→19:21)
[2018-12-22] MEDS: METOPROLOL TAR 50 MG TAB PO SCH (07:04)
[2018-12-22] MEDS: PROMOD 30 ML DOSE PO SCH ×2 (07:05→19:22)
--- NOTE | 2018-12-22 08:11 | EKG ---
Test Date: 2018-12-21 Test Time: 12:05:21 House Wirer: RR MEASUREMENT RESULTS: Intervals: Rate: 63 [place]: 166 QRSD: 72 QT: 444 QTc: 454 [place]: P: -3 [place]: 166 QRS: -16 T: -63 INTERPRETIVE STATEMENTS: Normal sinus rhythm Nonspecific T wave abnormality Abnormal ECG Compared to ECG 12/16/2018 12:38:27 T-wave abnormality now present ST (T wave) deviation no longer present Possible ischemia no longer present Electronically Signed On 12-22-18 07:43:57 CDT by Cornelio Morgan
--- NOTE | 2018-12-22 11:15 | RAD REPORT ---
EXAM DESCRIPTION: CT - Ct Stroke Brain Wo Cont - 12/21/2018 6:05 am CLINICAL HISTORY: The patient is 68 years old and is Male; facial droop; speech mumbled TECHNIQUE: Axial computed tomography images of the head/brain without intravenous contrast. Sag[place] al and coronal reformatted images were created and reviewed. This CT exam was performed using one o r more of the following dose reduction techniques: automated exposure control, adjustment of the mA and/or kV according to patient size, and/or use of iterative reconstruction technique. COMPARISON: CT head December 16, 2018. 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 There is diffuse cerebral atrophy present, consistent with this patient's age. There is patchy hypo attenuation of the deep white matter which is non-specific, but most likely owing to chronic small ve ssel ischemic change in a patient of this age group. No intracranial hemorrhage, mass effect, or mi dline shift is seen. There are no extra-axial fluid collections. VENTRICLES: Unremarkable. No ventriculomegaly. BONES/JOINTS: No acute fracture. SOFT TISSUES: Unremarkable. SINUSES: Unremarkable as visualized. No acute sinusitis. MASTOID AIR CELLS: Unremarkable as visualized. No mastoid effusion. 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 No acute intracranial hem orrhage. Electronically signed by: Ninfa Julio MD 12/21/2018 6:43 AM CDT ADDENDUM #1 THIS REPORT CONTAINS FINDINGS THAT MAY BE CRITICAL TO PATIENT CARE: The findings were verbally discussed via telephone conference with Dr. New Blunt MD by Dr. Judith Julio on 12/21/2018 6:50 AM CDT .The results were acknowledged and understood. Electronically signed by: Ninfa Julio MD 12/21/2018 6:51 AM CDT End of Addendum EXAM DESCRIPTION: CT Head Without Intravenous Contrast CLINICAL HISTORY: The patient is 68 years old and is Male; facial droop; speech mumbled TECHNIQUE: Axial computed tomography images of the head/brain without intravenous contrast. [place] and coronal reformatted images were created and reviewed. This CT exam was performed using one o r more of the following dose reduction techniques: automated exposure control, adjustment of the mA and/or kV according to patient size, and/or use of iterative reconstruction technique. COMPARISON: CT head December 16, 2018. 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 There is diffuse cerebral atrophy present, consistent with this patient's age. There is patchy hypo attenuation of the deep white matter which is non-specific, but most likely owing to chronic small ve ssel ischemic change in a patient of this age group. No intracranial hemorrhage, mass effect, or mi dline shift is seen. There are no extra-axial fluid collections. VENTRICLES: Unremarkable. No ventriculomegaly. BONES/JOINTS: No acute fracture. SOFT TISSUES: Unremarkable. SINUSES: Unremarkable as visualized. No acute sinusitis. MASTOID AIR CELLS: Unremarkable as visualized. No mastoid effusion. 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 No acute intracranial hem orrhage. Electronically signed by: Ninfa Julio MD 12/21/2018 6:43 AM CDT Due to temporary technical issues with the PACS/Fluency reporting system, reports are being signed by the in house radiologist as a courtesy to ensure prompt reporting. The interpreting radiologist is f ully responsible for the content of the report.
[2018-12-22] MEDS: ONDANSETRON 4 MG (ODT) TAB PO PRN (11:51)
[2018-12-22] MEDS ORDERED: POLYETHYL GLY 3350 17 GM/DOSE PO PRN (12:01)
--- NOTE | 2018-12-22 14:15 | FAST ---
SHIFT START DATE/TIME: 12/22/2018 07:00 (CDT) SHIFT END DATE/TIME: 12/22/2018 19:00 (CDT) NAME TYLOR GUZMAN DATE OF : 1950 DATE OF ADMISSION: 12/12/2018 19:50 (CDT) PHONE: AGE: 68 SSN# [id number] GENDER: Male ENCOUNTER PHYSICIAN: Dr. New Blunt M.D. ADMISSION DIAGNOSIS: - Cardiac 09 - Cardiac Disorders (09) CABG x4. EATING: EATING - STEP 1: Does the patient require the assistance of a person or device, or need extra time when eating? Yes. EATING - STEP 2: Does the patient require the assistance of a helper? Yes. EATING - STEP 3: Does the patient perform half or more of the eating tasks? Yes. EATING - STEP 4: Does the patient need only supervision, cuing, coaxing OR help to apply an orthosis OR help to cut fo od, open containers, pour liquids, or butter bread? Yes. EATING - SCORE: 5-SUP GROOMING: Comb/brush hair Oral care Wash, rinse, and dry face Wash, rinse, and dry hands GROOMING - STEP 1: Does the patient require the assistance of a person or device, or need extra time when grooming? Yes. GROOMING - STEP 2: Does the patient require the assistance of a helper? No. The patient only requires an assistive devic e, OR takes more than reasonable time to groom, OR there is a concern for safety as the patient groom s GROOMING - SCORE: 6-MARCELINA BATHING: Activity did not occur on this shift BATHING - SCORE: 0-UNK DRESSING - UPPER BODY: Activity did not occur on this shift ARTICLES SCORE Total number of steps: 0 DRESSING - UPPER BODY - SCORE: 0-UNK DRESSING - LOWER BODY: Elastic waist pants (three steps) Underwear (three steps) ARTICLES SCORE Total number of steps: 6 DRESSING - LOWER BODY - STEP 1: Does the patient require help from a person or device, or need extra time when dressing below the ankit st? Yes. DRESSING - LOWER BODY - STEP 2: Does the patient require the assistance of a helper? Yes. DRESSING - LOWER BODY - STEP 3: Does the helper touch the patient while dressing? Yes. DRESSING - LOWER BODY - STEP 4: How many of the total steps does the patient complete on his/her own? 0 DRESSING - LOWER BODY - STEP 5: Does patient require total assistance for dressing below the waist such as the helper holding clothin g and performing basically all the activities? Yes. DRESSING - LOWER BODY - SCORE: 1-DEP TOILETING: Activity did not occur on this shift TOILETING - SCORE: 0-UNK BLADDER MANAGEMENT: [place] removes incontinent device (Depends, pull ups, etc.); cleans the patient after accident / inco ntinent episode; and, applies new incontinent device. BLADDER MANAGEMENT - SCORE: 1-DEP BLADDER MANAGEMENT - FREQUENCY OF ACCIDENTS: BLADDER MANAGEMENT(FA) - STEP 1: How many accidents has the patient had during the current shift? 2 BOWEL MANAGEMENT: Activity did not occur on this shift BOWEL MANAGEMENT - SCORE: 7-IND BOWEL MANAGEMENT - FREQUENCY OF ACCIDENTS: BOWEL MANAGEMENT(FA) - STEP 1: How many accidents has the patient had during the current shift? 0 TRANSFERS: BED, CHAIR, WHEELCHAIR: TRANSFERS: BED, CHAIR, WHEELCHAIR - STEP 1: Does the patient require assistance of a person or device, or need extra time with bed, chair, or whe elchair transfers? Yes. TRANSFERS: BED, CHAIR, WHEELCHAIR - STEP 2: Does the patient require the assistance of a helper? Yes. TRANSFERS: BED, CHAIR, WHEELCHAIR - STEP 3: How much assistance does the patient require from the helper? Steadying/guiding assistance TRANSFERS: BED, CHAIR, WHEELCHAIR - SCORE: 4-MIN TRANSFERS: TOILET: Activity did not occur on this shift TRANSFERS: TOILET - SCORE: 0-UNK TRANSFERS: SHOWER: Activity did not occur on this shift TRANSFERS: SHOWER - SCORE: 0-UNK TRANSFERS: TUB: Activity did not occur on this shift TRANSFERS: TUB - SCORE: 0-UNK LOCOMOTION: WALK: Activity did not occur on this shift LOCOMOTION: WALK - SCORE: 0-UNK LOCOMOTION: WHEELCHAIR: Activity did not occur on this shift LOCOMOTION: WHEELCHAIR - SCORE: 0-UNK COMPREHENSION: COMPREHENSION: TYPE: Both COMPREHENSION - STEP 1: Does the patient require help from a person or device, or need extra time to understand complex and a bstract ideas (such as current events, finances, discharge planning, medical issues, relationships, e tc)? Yes. COMPREHENSION - STEP 2: Does the patient require help to understand questions or statements about basic needs or ideas (such as hunger, thirst, sleep, safety, daily schedule, room location, or discomfort) half or more of the t rosibel? No. COMPREHENSION - STEP 3: How often does the patient need help to understand directions and conversation about basic needs? 25% - 49% of the time COMPREHENSION - SCORE: 3-MOD EXPRESSION EXPRESSION: TYPE: Both EXPRESSION - STEP 1: Does the patient require help from a person or device, or need extra time expressing complex and abst ract ideas (such as current events, finances, discharge planning, medical issues, relationships, etc) ? Yes. EXPRESSION - STEP 2: Does the patient require help to express basic necessities or ideas (such as hunger, thirst, sleep, s afety, daily schedule, room location, or discomfort) half or more of the time? No. EXPRESSION - STEP 3: How often does the patient need help to express directions and conversation about basic needs? Less t soares 10% of the time EXPRESSION - SCORE: 5-SUP SOCIAL INTERACTION: SOCIAL INTERACTION - STEP 1: Does the patient require a helper to interact with others in social and therapeutic situations? No. SOCIAL INTERACTION - STEP 2: Does the patient need extra time in social situations, OR does s/he interact with staff, other patien ts, and family members ONLY in structured environments, OR does s/he require medication for social in teraction? No. SOCIAL INTERACTION - SCORE: 7-IND PROBLEM SOLVING: PROBLEM SOLVING - STEP 1: Does the patient need help from a person or device, or need extra time to solve complex problems such as managing a checking account or confronting interpersonal problems? Yes. PROBLEM SOLVING - STEP 2: Does the patient solve basic routine problems half or more of the time? Yes. PROBLEM SOLVING - STEP 3: How often does the patient need help to solve basic routine problems? Less than 10% of the time PROBLEM SOLVING - SCORE: 5-SUP MEMORY: MEMORY - STEP 1: Does the patient need help from a person or device, or need extra time to remember frequently encount ered people, daily routines, and executing requests? Yes. MEMORY - STEP 2: How often does the patient need help to remember frequently encountered people, daily routines, and e xecuting requests? Less than 10% of the time MEMORY - SCORE: 5-SUP SIGNATURE PANEL: The following modified sections: Eating - Score, Grooming - Score, Bathing - Score, Dressing - Upper Body - Score, Dressing - Lower Body - Score, Toileting - Score, Bladder Management - Score, Bowel Man agement - Score, Transfers: Bed, Chair, Wheelchair - Score, Transfers: Toilet - Score, Transfers: Dianne wer - Score, Transfers: Tub - Score, Locomotion: Walk - Score, Locomotion: Wheelchair - Score, Compre hension - Score, Expression - Score, Social Interaction - Score, Problem Solving - Score, Memory - Sc ore were [electronically] signed by Sindhu Engle, C.N.AShane on SatDec 22 2018 14:14:18 T-0500 (Centra l Daylight Time)
--- NOTE | 2018-12-22 14:45 | FAST ---
ENCOUNTER DATE AND TIME: 12/22/2018 08:00 (CDT) NAME TYLOR GUZMAN DATE OF : 1950 DATE OF ADMISSION: 12/12/2018 19:50 (CDT) PHONE: AGE: 68 N# [id number] GENDER: Male ENCOUNTER PHYSICIAN: Dr. New Blunt M.D. ADMISSION DIAGNOSIS: - Cardiac 09 - Cardiac Disorders (09) CABG x4. EATING: EATING - STEP 1: Does the patient require the assistance of a person or device, or need extra time when eating? No. EATING - SCORE: 7-IND GROOMING: Comb/brush hair Oral care Wash, rinse, and dry face Wash, rinse, and dry hands GROOMING - STEP 1: Does the patient require the assistance of a person or device, or need extra time when grooming? No. GROOMING - SCORE: 7-IND BATHING: Abdomen Buttocks Chest Left arm Left lower leg and foot Left upper leg Perineal area Right arm Right lower leg and foot Right upper leg BATHING - STEP 1: Does the patient require the assistance of a person or device, or need extra time when bathing? Yes. BATHING - STEP 2: Does the patient require the assistance of a helper? Yes. BATHING - STEP 3: How much assistance does the patient require from the helper? Only supervision, cuing, coaxing, instr uctions, encouragement BATHING - SCORE: 5-SUP DRESSING - UPPER BODY: T-shirt/pullover shirt (four steps) ARTICLES SCORE Total number of steps: 4 DRESSING - UPPER BODY - STEP 1: Does the patient require help from a person or device, or need extra time when dressing above the ankit st? Yes. DRESSING - UPPER BODY - STEP 2: Does the patient require the assistance of a helper? Yes. DRESSING - UPPER BODY - STEP 3: Does the helper touch the patient while dressing? No. DRESSING - UPPER BODY - SCORE: 5-SUP DRESSING - LOWER BODY: Elastic waist pants (three steps) Slip-on shoe - Left foot (one step) Slip-on shoe - Right foot (one step) Sock - Left foot (one step) Sock - Right foot (one step) Underwear (three steps) ARTICLES SCORE Total number of steps: 10 DRESSING - LOWER BODY - STEP 1: Does the patient require help from a person or device, or need extra time when dressing below the ankit st? Yes. DRESSING - LOWER BODY - STEP 2: Does the patient require the assistance of a helper? Yes. DRESSING - LOWER BODY - STEP 3: Does the helper touch the patient while dressing? No. DRESSING - LOWER BODY - SCORE: 5-SUP TOILETING: Activity did not occur on this shift TOILETING - SCORE: 0-UNK BLADDER MANAGEMENT: Activity did not occur on this shift BLADDER MANAGEMENT - SCORE: 7-IND BOWEL MANAGEMENT: Activity did not occur on this shift BOWEL MANAGEMENT - SCORE: 7-IND TRANSFERS: BED, CHAIR, WHEELCHAIR: Activity did not occur on this shift TRANSFERS: BED, CHAIR, WHEELCHAIR - SCORE: 0-UNK TRANSFERS: TOILET: Activity did not occur on this shift TRANSFERS: TOILET - SCORE: 0-UNK TRANSFERS: SHOWER: TRANSFERS: SHOWER - STEP 1: Does the patient require the assistance of a person or device, or need extra time with shower transfe rs? Yes. TRANSFERS: SHOWER - STEP 2: Does the patient require the assistance of a helper? Yes. TRANSFERS: SHOWER - STEP 3: How much assistance does the patient require from the helper? Only supervision, cuing, coaxing, or he lp to set out transfer equipment or to lock brakes and/or lift foot rests TRANSFERS: SHOWER - SCORE: 5-SUP TRANSFERS: TUB: Activity did not occur on this shift TRANSFERS: TUB - SCORE: 0-UNK LOCOMOTION: WALK: Activity did not occur on this shift LOCOMOTION: WALK - SCORE: 0-UNK LOCOMOTION: WHEELCHAIR: Activity did not occur on this shift LOCOMOTION: WHEELCHAIR - SCORE: 0-UNK LOCOMOTION: STAIRS: Activity did not occur on this shift LOCOMOTION: STAIRS - SCORE: 0-UNK COMPREHENSION: COMPREHENSION: TYPE: Both COMPREHENSION - STEP 1: Does the patient require help from a person or device, or need extra time to understand complex and a bstract ideas (such as current events, finances, discharge planning, medical issues, relationships, e tc)? No. COMPREHENSION - STEP 2: Does the patient need extra time, require an assistive device (such as glasses for visual comprehensi on or a hearing aid for auditory comprehension) or does s/he have mild difficulty understanding compl ex and abstract information? Yes. COMPREHENSION - SCORE: 6-MARCELINA EXPRESSION EXPRESSION: TYPE: Both EXPRESSION - STEP 1: Does the patient require help from a person or device, or need extra time expressing complex and abst ract ideas (such as current events, finances, discharge planning, medical issues, relationships, etc) ? No. EXPRESSION - STEP 2: Does the patient need extra time, require an assistive device (such as augmentive communication syste m or a communication board), OR does s/he have mild difficulty expressing complex and abstract ideas (including mild dysarthria or mild word-find problems)? Yes. EXPRESSION - SCORE: 6-MARCELINA SOCIAL INTERACTION: SOCIAL INTERACTION - STEP 1: Does the patient require a helper to interact with others in social and therapeutic situations? No. SOCIAL INTERACTION - STEP 2: Does the patient need extra time in social situations, OR does s/he interact with staff, other patien ts, and family members ONLY in structured environments, OR does s/he require medication for social in teraction? Yes, patient needs extra time SOCIAL INTERACTION - SCORE: 6-MARCELINA PROBLEM SOLVING: PROBLEM SOLVING - STEP 1: Does the patient need help from a person or device, or need extra time to solve complex problems such as managing a checking account or confronting interpersonal problems? Yes. PROBLEM SOLVING - STEP 2: Does the patient solve basic routine problems half or more of the time? Yes. PROBLEM SOLVING - STEP 3: How often does the patient need help to solve basic routine problems? Less than 10% of the time PROBLEM SOLVING - SCORE: 5-SUP MEMORY: MEMORY - STEP 1: Does the patient need help from a person or device, or need extra time to remember frequently encount ered people, daily routines, and executing requests? Yes. MEMORY - STEP 2: How often does the patient need help to remember frequently encountered people, daily routines, and e xecuting requests? 25% - 49% of the time MEMORY - SCORE: 3-MOD SIGNATURE PANEL: The following modified sections: Eating - Score, Grooming - Score, Bathing - Score, Dressing - Upper Body - Score, Dressing - Lower Body - Score, Toileting - Score, Transfers: Bed, Chair, Wheelchair - S core, Transfers: Toilet - Score, Transfers: Tub - Score, Transfers: Shower - Score, Comprehension - S core, Expression - Score, Social Interaction - Score, Problem Solving - Score, Memory - Score were [e lectronically] signed by Alissa Carlos OT on SatDec 22 2018 14:45:15 GMT-0500 ([place] Daylight T ros[place])
--- NOTE | 2018-12-22 15:00 | FAST ---
ENCOUNTER DATE AND TIME: 12/22/2018 08:00 (CDT) NAME TYLOR GUZMAN DATE OF : 1950 DATE OF ADMISSION: 12/12/2018 19:50 (CDT) PHONE: AGE: 68 N# [id number] GENDER: Male ENCOUNTER PHYSICIAN: Dr. New Blunt M.D. ADMISSION DIAGNOSIS: - Cardiac 09 - Cardiac Disorders (09) CABG x4. EATING: Activity did not occur on this shift EATING - SCORE: 0-UNK GROOMING: Activity did not occur on this shift GROOMING - SCORE: 0-UNK BATHING: Activity did not occur on this shift BATHING - SCORE: 0-UNK DRESSING - UPPER BODY: Activity did not occur on this shift Patient is not dressing in public clothing ARTICLES SCORE Total number of steps: 0 DRESSING - UPPER BODY - SCORE: 0-UNK DRESSING - LOWER BODY: Activity did not occur on this shift Patient is not dressing in public clothing ARTICLES SCORE Total number of steps: 0 DRESSING - LOWER BODY - SCORE: 0-UNK TOILETING: Activity did not occur on this shift TOILETING - SCORE: 0-UNK BLADDER MANAGEMENT: Activity did not occur on this shift BLADDER MANAGEMENT - SCORE: 7-IND BOWEL MANAGEMENT: Activity did not occur on this shift BOWEL MANAGEMENT - SCORE: 7-IND TRANSFERS: BED, CHAIR, WHEELCHAIR: TRANSFERS: BED, CHAIR, WHEELCHAIR - STEP 1: Does the patient require assistance of a person or device, or need extra time with bed, chair, or whe elchair transfers? Yes. TRANSFERS: BED, CHAIR, WHEELCHAIR - STEP 2: Does the patient require the assistance of a helper? Yes. TRANSFERS: BED, CHAIR, WHEELCHAIR - STEP 3: How much assistance does the patient require from the helper? Steadying/guiding assistance TRANSFERS: BED, CHAIR, WHEELCHAIR - SCORE: 4-MIN TRANSFERS: TOILET: Activity did not occur on this shift TRANSFERS: TOILET - SCORE: 0-UNK TRANSFERS: SHOWER: Activity did not occur on this shift TRANSFERS: SHOWER - SCORE: 0-UNK TRANSFERS: TUB: Activity did not occur on this shift TRANSFERS: TUB - SCORE: 0-UNK LOCOMOTION: WALK: LOCOMOTION: WALK - STEP 1: Does the patient need help from a person or device, or need extra time to walk 150 feet? Yes. LOCOMOTION: WALK - STEP 2: How much assistance does the patient require to walk a minimum of 150 feet? Only incidental help such as contact guarding or steadying LOCOMOTION: WALK - SCORE: 4-MIN LOCOMOTION: WHEELCHAIR: LOCOMOTION: WHEELCHAIR - STEP 1: Does the patient need help to go 150 feet in a wheelchair? Yes. LOCOMOTION: WHEELCHAIR - STEP 2: How much assistance does the patient need from the helper? Only supervision, cuing, or coaxing LOCOMOTION: WHEELCHAIR - SCORE: 5-SUP LOCOMOTION: STAIRS: Activity did not occur on this shift LOCOMOTION: STAIRS - SCORE: 0-UNK COMPREHENSION: COMPREHENSION - SCORE: 0-UNK EXPRESSION EXPRESSION - SCORE: 0-UNK SOCIAL INTERACTION: SOCIAL INTERACTION - SCORE: 0-UNK PROBLEM SOLVING: PROBLEM SOLVING - SCORE: 0-UNK MEMORY: MEMORY - SCORE: 0-UNK SIGNATURE PANEL: The following modified sections: Transfers: Bed, Chair, Wheelchair - Score, Transfers: Toilet - Score , Locomotion: Walk - Score, Locomotion: Wheelchair - Score, Locomotion: Stairs - Score were [gil vogt] signed by Alon Kingston PTA on SatDec 22 2018 14:59:12 GMT-0500 (Central Daylight Time)
[2018-12-22] MEDS: ENOXAPARIN 30 MG/0.3 ML SQ SCH (17:20)
--- NOTE | 2018-12-22 18:04 | R.PN ---
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 SUBJECTIVE: Pt denied any Shortness of Breath. Pt denied any depression. WBC 7.9, urinalysis is unremarkable. Hgb 10.5, BUN at 20 and Pharmacist Assistant at 1.7, low prealbumin at 15.3. Labs suggest dehydration and will increase free water intake to 6-8 glasses daily. LDL 73, HDL 26. EKG sh ows sinus arrhythmia. Self-propelled wheelchair 500' with standby assistance. Ambulated 500' with contact guard assistance using a rolling walker. Dr. Faust diagnosed patient with tinea unquium and onychogryphosis and debrided the toe nails. VITAL SIGNS Temperature: 97.8 F SBP/DBP: 116/61 Pulse: 78 Resp: 15 MEDICATION ALLERGIES: No Known Drug Allergies (NKDA) ENVIRONMENTAL ALLERGIES: - Substance Allergies None Known - Other Allergies None Known NURSING: - Shower allowing shower ACTIVITIES OOB only with supervision THERAPIES: - Occupational Therapy Evaluate and Treat. - Physical Therapy Evaluate and Treat. PHYSICAL EXAM - Gen Alert and awake Lying in bed No apparent distress Oriented to: person, time, and place - Skin Sternal incision is intact No abnormalities - Eyes No abnormalities - ENMT No abnormalities - Neck No abnormalities - CVS RRR - Chest No abnormalities - Abd +bowel sounds - GI Soft Deferred - No abnormalities - Ext No significant edema - MSK 4+/5 weakness in both lower extremities. - Neuro No focal deficits - Psych No abnormalities ASSESSMENT: Pt. is a 68 yo Right-handed white male.On 12/01/2018 he was admitted to [facility] with diagnosis CABG x4.His impairment category is Cardiac 09 - Cardiac Disorders ().Pre-m channingidly, Pt. was independent/mod-I in Self-Care, Sphincter Control, Transfers Control, Communication, Social Cognition, and Locomotion; and he had good Sphincter Control.Currently, he has deficits of Tr ansfers Control, Communication, Social Cognition, Endurance, Balance, Safety Awareness, Self-Care, an d Locomotion.Pt. is now referred to [facility] for acute in-patient rehabilita tion in order to maximize patient's functional independence in activities of daily living, strength, ROM, and mobility.- Rehab Goal Patient has realistic goal of being discharged at assistance level 6-Deuce to reside at Home with Fam reynaldo/Relatives. MDM/PLAN: - Physical Therapy Gait dysfunction - to improve, our physical therapists will perform initial evaluation of pt's statu s upon admission and devise an individualized program for Gait Training, and Wheel Chair mobility Inability to transfer - to improve, our physical therapists will perform initial evaluation of pt's status upon admission and devise an individualized program for Bed mobility Need for home safety evaluation - to improve, our physical therapists will perform initial evaluatio n of pt's status upon admission and devise an individualized program for Home Evaluation Need in caregiver upon discharge - to improve, our physical therapists will perform initial evaluati on of pt's status upon admission and devise an individualized program for Caregiver Training Edema - to improve, our physical therapists will perform initial evaluation of pt's status upon admi ssion and devise an individualized program for Elevation Training, and Lymphedema Therapy New precaution - to improve, our physical therapists will perform initial evaluation of pt's status upon admission and devise an individualized program for Patient precaution education Poor balance - to improve, our physical therapists will perform initial evaluation of pt's status up on admission and devise an individualized program for Balance Training Poor endurance - to improve, our physical therapists will perform initial evaluation of pt's status upon admission and devise an individualized program for Endurance Training Weakness - to improve, our physical therapists will perform initial evaluation of pt's status upon a dmission and devise an individualized program for Aquatic Therapy, Neuromuscular Reeducation, and Str engthening Achieving independence - to improve, our physical therapists will perform initial evaluation of pt's status upon admission and devise an individualized program for Community Reintegration Activities - Occupational Therapy ADL deficits - to improve, our occupation therapists will perform initial evaluation of pt's status upon admission and devise an individualized program for Bathing, Bed mobility, Community Reintegratio n, Cooking, Dressing, Eating, Fine Motor Skills, Grooming, Homemaking, Kitchen Mobility, Laundry, Pat ient Education, Safety Awareness, Splinting - Positioning, Transfers(Toilet, Tub, Shower), and Wheel Chair Management Cognitive deficits - to improve, our occupation therapists will perform initial evaluation of pt's s tatus upon admission and devise an individualized program for Cognition - orientation Need for customer care specialist - to improve, our occupation therapists will perform initial evaluation of pt's status upon admission and devise an individualized program for Caregiver Training Weakness - to improve, our occupation therapists will perform initial evaluation of pt's status upon admission and devise an individualized program for Aquatic Therapy, Balance, Endurance, UE ROM, and UE strengthening - Diet Type Continue Regular - Diet - Liquid Texture Continue Regular - Tube Feed Continue N/A - Diet - Solid Texture Continue Regular - Shower allowing shower FUNCTIONAL STATUS: UPDATED AT WEEKLY TEAM CONFERENCE - Bladder Same accident frequency: 7-Ind - No accidents in the past 7 days - Bowel Same accident frequency: 7-Ind - No accidents in the past 7 days - Walking Same score based on distance walked: 1(<=50ft) FUNCTIONAL STATUS: - Self-Care A. Eating Ind B. Grooming sup C. Bathing modA D. Dressing - Upper modA E. Dressing - Lower modA F. Toileting modA - Sphincter Control G: Bladder control Ind H: Bowel control Ind - Transfers Control I. Bed/Chair/Wheelchair modA J. Toilet modA K. Tub/Shower modA - Locomotion L. Walk/Wheelchair (W) maxA M. Stairs ADNO - Communication N. Comprehension (B) Kamilla O. Expression (B) Kamilla - Social Cognition P. Social Interaction Kamilla Q. Problem Solving Kamilla R. Memory Kamilla - Endurance Poor - Balance Poor - Safety Awareness Poor CURRENT FUNC. DEFICITS: Transfers Control, Communication, Social Cognition, Endurance, Balance, Safety Awareness, Self-Care, and Locomotion SIGNATURE PANEL: (CDT)
[2018-12-22] MEDS: ATORVASTATIN 40 MG TAB PO SCH (20:07)
[2018-12-22] MEDS: MELATONIN 3 MG TABLET PO PRN (20:07)
[2018-12-22] MEDS: DOCUSATE NA/SENNA CONC 1 TAB PO SCH (20:07)
--- NOTE | 2018-12-23 03:25 | FAST ---
SHIFT START DATE/TIME: 12/22/2018 19:00 (CDT) SHIFT END DATE/TIME: 12/23/2018 07:00 (CDT) NAME TYLOR GUZMAN DATE OF : 1950 DATE OF ADMISSION: 12/12/2018 19:50 (CDT) PHONE: AGE: 68 SSN# [id number] GENDER: Male ENCOUNTER PHYSICIAN: Dr. New Blunt M.D. ADMISSION DIAGNOSIS: - Cardiac 09 - Cardiac Disorders (09) CABG x4. EATING: Activity did not occur on this shift EATING - SCORE: 0-UNK GROOMING: Activity did not occur on this shift GROOMING - SCORE: 0-UNK BATHING: Activity did not occur on this shift BATHING - SCORE: 0-UNK DRESSING - UPPER BODY: Activity did not occur on this shift ARTICLES SCORE Total number of steps: 0 DRESSING - UPPER BODY - SCORE: 0-UNK DRESSING - LOWER BODY: Activity did not occur on this shift ARTICLES SCORE Total number of steps: 0 DRESSING - LOWER BODY - SCORE: 0-UNK TOILETING: Activity did not occur on this shift TOILETING - SCORE: 0-UNK BLADDER MANAGEMENT: Mchenry removes incontinent device (Depends, pull ups, etc.); cleans the patient after accident / inco ntinent episode; and, applies new incontinent device. BLADDER MANAGEMENT - SCORE: 1-DEP BOWEL MANAGEMENT: Activity did not occur on this shift BOWEL MANAGEMENT - SCORE: 7-IND TRANSFERS: BED, CHAIR, WHEELCHAIR: Activity did not occur on this shift TRANSFERS: BED, CHAIR, WHEELCHAIR - SCORE: 0-UNK TRANSFERS: TOILET: Activity did not occur on this shift TRANSFERS: TOILET - SCORE: 0-UNK TRANSFERS: SHOWER: Activity did not occur on this shift TRANSFERS: SHOWER - SCORE: 0-UNK TRANSFERS: TUB: Activity did not occur on this shift TRANSFERS: TUB - SCORE: 0-UNK LOCOMOTION: WALK: Activity did not occur on this shift LOCOMOTION: WALK - SCORE: 0-UNK LOCOMOTION: WHEELCHAIR: Activity did not occur on this shift LOCOMOTION: WHEELCHAIR - SCORE: 0-UNK COMPREHENSION: COMPREHENSION: TYPE: Both COMPREHENSION - STEP 1: Does the patient require help from a person or device, or need extra time to understand complex and a bstract ideas (such as current events, finances, discharge planning, medical issues, relationships, e tc)? Yes. COMPREHENSION - STEP 2: Does the patient require help to understand questions or statements about basic needs or ideas (such as hunger, thirst, sleep, safety, daily schedule, room location, or discomfort) half or more of the t rosibel? No. COMPREHENSION - STEP 3: How often does the patient need help to understand directions and conversation about basic needs? 10% - 24% of the time COMPREHENSION - SCORE: 4-MIN EXPRESSION EXPRESSION: TYPE: Both EXPRESSION - STEP 1: Does the patient require help from a person or device, or need extra time expressing complex and abst ract ideas (such as current events, finances, discharge planning, medical issues, relationships, etc) ? Yes. EXPRESSION - STEP 2: Does the patient require help to express basic necessities or ideas (such as hunger, thirst, sleep, s afety, daily schedule, room location, or discomfort) half or more of the time? No. EXPRESSION - STEP 3: How often does the patient need help to express directions and conversation about basic needs? 10-24% of the time EXPRESSION - SCORE: 4-MIN SOCIAL INTERACTION: SOCIAL INTERACTION - STEP 1: Does the patient require a helper to interact with others in social and therapeutic situations? No. SOCIAL INTERACTION - STEP 2: Does the patient need extra time in social situations, OR does s/he interact with staff, other patien ts, and family members ONLY in structured environments, OR does s/he require medication for social in teraction? Yes, patient needs extra time SOCIAL INTERACTION - SCORE: 6-MARCELINA PROBLEM SOLVING: Patient requires bed/chair alarms due to attempts to get up unassisted when helper is needed. PROBLEM SOLVING - STEP 1: How often do the bed/chair alarms go off? Occasionally - the alarms go off about 25% or less PROBLEM SOLVING - SCORE: 4-MIN MEMORY: MEMORY - STEP 1: How often do the bed/chair alarms go off? Occasionally - the alarms go off about 25% of the time or l ess MEMORY - SCORE: 4-MIN SIGNATURE PANEL: The following modified sections: Eating - Score, Grooming - Score, Bathing - Score, Dressing - Upper Body - Score, Dressing - Lower Body - Score, Toileting - Score, Bladder Management - Score, Bowel Man agement - Score, Transfers: Bed, Chair, Wheelchair - Score, Transfers: Toilet - Score, Transfers: Dianne wer - Score, Transfers: Tub - Score, Locomotion: Walk - Score, Locomotion: Wheelchair - Score, Compre hension - Score, Expression - Score, Social Interaction - Score, Problem Solving - Score, Memory - Sc ore were [electronically] signed by Elizabeth Alejandre CNA on SatDec 23 2018 03:24:45 T-0500 ([place] Da ylight Time)
[2018-12-23] MEDS: PANTOPRAZOLE 40MG TABLET PO SCH (06:42)
[2018-12-23] MEDS: ONDANSETRON 4 MG (ODT) TAB PO PRN (06:43)
[2018-12-23 07:50] VITALS: TEMP 97.6
[2018-12-23] MEDS: METOPROLOL TAR 50 MG TAB PO SCH (08:00)
[2018-12-23] MEDS: AMLODIPINE 5 MG TAB PO SCH (08:00)
[2018-12-23] MEDS: FERROUS SULFATE 325 MG TAB PO SCH (08:11)
[2018-12-23] MEDS: CLOPIDOGREL 75 MG TABLET PO SCH (08:12)
[2018-12-23] MEDS: FE SULF/FA/VIT B COMP & C TAB PO SCH (08:12)
[2018-12-23] MEDS: TRAMADOL HCL 50 MG TAB PO PRN ×2 (08:12→13:30)
[2018-12-23] MEDS: ASPIRIN EC 81 MG TAB PO SCH (08:12)
[2018-12-23] MEDS: PROMOD 30 ML DOSE PO SCH (08:13)
--- NOTE | 2018-12-23 11:47 | RAD REPORT ---
EXAM DESCRIPTION: RAD - Barium Swallow Modified - 12/23/2018 11:39 am CLINICAL HISTORY: R/O aspiration Dysphagia, history of aspiration COMPARISON: Barium Swallow Modified dated 12/15/2018 TECHNIQUE: The patient was given liquid, semi-solid and solid forms of barium. Lateral view fluorosc opic imaging was performed in conjunction with speech pathology service. FINDINGS: Laryngeal penetration: cleared Pharyngeal residue: vallecular, pyriform, posterior wall. Moderate with thicker barium, reduced to m ild after consecutive swallow. Delayed in swallow onset (~/s -5s, worse with thicker consistencies.) Total fluoroscopy time: 4 minutes and 16 seconds
--- NOTE | 2018-12-23 13:17 | FAST ---
SHIFT START DATE/TIME: 12/23/2018 07:00 (CDT) SHIFT END DATE/TIME: 12/23/2018 19:00 (CDT) NAME TYLOR GUZMAN DATE OF : 1950 DATE OF ADMISSION: 12/12/2018 19:50 (CDT) PHONE: AGE: 68 SSN# [id number] GENDER: Male ENCOUNTER PHYSICIAN: Dr. New Blunt M.D. ADMISSION DIAGNOSIS: - Cardiac 09 - Cardiac Disorders (09) CABG x4. EATING: EATING - STEP 1: Does the patient require the assistance of a person or device, or need extra time when eating? Yes. EATING - STEP 2: Does the patient require the assistance of a helper? Yes. EATING - STEP 3: Does the patient perform half or more of the eating tasks? Yes. EATING - STEP 4: Does the patient need only supervision, cuing, coaxing OR help to apply an orthosis OR help to cut fo od, open containers, pour liquids, or butter bread? Yes. EATING - SCORE: 5-SUP GROOMING: Activity did not occur on this shift GROOMING - SCORE: 0-UNK BATHING: Activity did not occur on this shift BATHING - SCORE: 0-UNK DRESSING - UPPER BODY: Activity did not occur on this shift ARTICLES SCORE Total number of steps: 0 DRESSING - UPPER BODY - SCORE: 0-UNK DRESSING - LOWER BODY: Activity did not occur on this shift ARTICLES SCORE Total number of steps: 0 DRESSING - LOWER BODY - SCORE: 0-UNK TOILETING: TOILETING - STEP 1: Does the patient require the assistance of a person or device, or need extra time with toileting? Yes . TOILETING - STEP 2: Does the patient require the assistance of a helper? Yes. TOILETING - STEP 3: How much assistance does the patient require from the helper? Hands-on assistance from the helper TOILETING - STEP 4: Of the 3 tasks: 1) Adjusting clothing prior to use, 2) Cleansing of perineal area, 3) Adjusting clot halley after use; How many tasks does the patient perform WITHOUT assistance of the helper? Two tasks TOILETING - SCORE: 3-MOD BLADDER MANAGEMENT: BLADDER MANAGEMENT - STEP 1: Does the patient control the bladder completely and intentionally without equipment or devices or med ications, and is always continent? No. BLADDER MANAGEMENT - STEP 2: Does the patient require the assistance of a helper? No, patient requires and independently uses an a ssistive device, such as a urinal, bedpan, bedside commode, catheter, absorbent pad, or collecting de vice BLADDER MANAGEMENT - SCORE: 6-MARCELINA BOWEL MANAGEMENT: BOWEL MANAGEMENT - STEP 1: Does the patient control bowels completely and intentionally without equipment devices or medications AND is always continent? No. BOWEL MANAGEMENT - STEP 2: Does the patient require the assistance of a helper? No, patient requires and manages independently a n assistive device such as a bedpan, bedside commode, absorbent pad, incontinent device, or collectin g device BOWEL MANAGEMENT - SCORE: 6-MARCELINA TRANSFERS: BED, CHAIR, WHEELCHAIR: TRANSFERS: BED, CHAIR, WHEELCHAIR - STEP 1: Does the patient require assistance of a person or device, or need extra time with bed, chair, or whe elchair transfers? Yes. TRANSFERS: BED, CHAIR, WHEELCHAIR - STEP 2: Does the patient require the assistance of a helper? Yes. TRANSFERS: BED, CHAIR, WHEELCHAIR - STEP 3: How much assistance does the patient require from the helper? Steadying/guiding assistance TRANSFERS: BED, CHAIR, WHEELCHAIR - SCORE: 4-MIN TRANSFERS: TOILET: TRANSFERS: TOILET - STEP 1: Does the patient require the assistance of a person or device, or need extra time with toilet transfe rs? Yes. TRANSFERS: TOILET - STEP 2: Does the patient require the assistance of a helper? Yes. TRANSFERS: TOILET - STEP 3: How much assistance does the patient require from the helper? Patient performs half or more of the tr ansferring tasks TRANSFERS: TOILET - STEP 4: Does the patient need only incidental help such as contact guard or steadying during toilet transfer? No. Patient needs more than incidental help TRANSFERS: TOILET - SCORE: 3-MOD TRANSFERS: SHOWER: Activity did not occur on this shift TRANSFERS: SHOWER - SCORE: 0-UNK TRANSFERS: TUB: Activity did not occur on this shift TRANSFERS: TUB - SCORE: 0-UNK LOCOMOTION: WALK: Activity did not occur on this shift LOCOMOTION: WALK - SCORE: 0-UNK LOCOMOTION: WHEELCHAIR: Activity did not occur on this shift LOCOMOTION: WHEELCHAIR - SCORE: 0-UNK COMPREHENSION: COMPREHENSION: TYPE: Both COMPREHENSION - STEP 1: Does the patient require help from a person or device, or need extra time to understand complex and a bstract ideas (such as current events, finances, discharge planning, medical issues, relationships, e tc)? Yes. COMPREHENSION - STEP 2: Does the patient require help to understand questions or statements about basic needs or ideas (such as hunger, thirst, sleep, safety, daily schedule, room location, or discomfort) half or more of the t rosibel? No. COMPREHENSION - STEP 3: How often does the patient need help to understand directions and conversation about basic needs? 25% - 49% of the time COMPREHENSION - SCORE: 3-MOD EXPRESSION EXPRESSION: TYPE: Both EXPRESSION - STEP 1: Does the patient require help from a person or device, or need extra time expressing complex and abst ract ideas (such as current events, finances, discharge planning, medical issues, relationships, etc) ? Yes. EXPRESSION - STEP 2: Does the patient require help to express basic necessities or ideas (such as hunger, thirst, sleep, s afety, daily schedule, room location, or discomfort) half or more of the time? No. EXPRESSION - STEP 3: How often does the patient need help to express directions and conversation about basic needs? 25-49% of the time EXPRESSION - SCORE: 3-MOD SOCIAL INTERACTION: SOCIAL INTERACTION - STEP 1: Does the patient require a helper to interact with others in social and therapeutic situations? Yes. SOCIAL INTERACTION - STEP 2: Does the patient interact appropriately half or more of the time? Yes. SOCIAL INTERACTION - STEP 3: How often does the patient need help to interact appropriately? 10-24% of the time SOCIAL INTERACTION - SCORE: 4-MIN PROBLEM SOLVING: PROBLEM SOLVING - STEP 1: Does the patient need help from a person or device, or need extra time to solve complex problems such as managing a checking account or confronting interpersonal problems? Yes. PROBLEM SOLVING - STEP 2: Does the patient solve basic routine problems half or more of the time? Yes. PROBLEM SOLVING - STEP 3: How often does the patient need help to solve basic routine problems? 10%-24% of the time PROBLEM SOLVING - SCORE: 4-MIN MEMORY: MEMORY - STEP 1: Does the patient need help from a person or device, or need extra time to remember frequently encount ered people, daily routines, and executing requests? Yes. MEMORY - STEP 2: How often does the patient need help to remember frequently encountered people, daily routines, and e xecuting requests? 25% - 49% of the time MEMORY - SCORE: 3-MOD SIGNATURE PANEL: The following modified sections: Eating - Score, Grooming - Score, Bathing - Score, Dressing - Upper Body - Score, Dressing - Lower Body - Score, Toileting - Score, Bladder Management - Score, Bowel Man agement - Score, Transfers: Bed, Chair, Wheelchair - Score, Transfers: Toilet - Score, Transfers: Dianne wer - Score, Transfers: Tub - Score, Locomotion: Walk - Score, Locomotion: Wheelchair - Score, Compre hension - Score, Expression - Score, Social Interaction - Score, Problem Solving - Score, Memory - Sc ore were [electronically] signed by Manolo Carpenter on SatDec 23 2018 13:16:17 GMT-0500 (Central Daylight Time)
[2018-12-23 15:30] VITALS: BP 116/82
--- NOTE | 2018-12-23 15:39 | FAST ---
ENCOUNTER DATE AND TIME: 12/23/2018 08:00 (CDT) NAME TYLOR GUZMAN DATE OF : 1950 DATE OF ADMISSION: 12/12/2018 19:50 (CDT) PHONE: AGE: 68 N# [id number] GENDER: Male ENCOUNTER PHYSICIAN: Dr. New Blunt M.D. ADMISSION DIAGNOSIS: - Cardiac 09 - Cardiac Disorders (09) CABG x4. EATING: Activity did not occur on this shift EATING - SCORE: 0-UNK GROOMING: Activity did not occur on this shift GROOMING - SCORE: 0-UNK BATHING: Activity did not occur on this shift BATHING - SCORE: 0-UNK DRESSING - UPPER BODY: Activity did not occur on this shift Patient is not dressing in public clothing ARTICLES SCORE Total number of steps: 0 DRESSING - UPPER BODY - SCORE: 0-UNK DRESSING - LOWER BODY: Activity did not occur on this shift Patient is not dressing in public clothing ARTICLES SCORE Total number of steps: 0 DRESSING - LOWER BODY - SCORE: 0-UNK TOILETING: Activity did not occur on this shift TOILETING - SCORE: 0-UNK BLADDER MANAGEMENT: Activity did not occur on this shift BLADDER MANAGEMENT - SCORE: 7-IND BOWEL MANAGEMENT: Activity did not occur on this shift BOWEL MANAGEMENT - SCORE: 7-IND TRANSFERS: BED, CHAIR, WHEELCHAIR: TRANSFERS: BED, CHAIR, WHEELCHAIR - STEP 1: Does the patient require assistance of a person or device, or need extra time with bed, chair, or whe elchair transfers? Yes. TRANSFERS: BED, CHAIR, WHEELCHAIR - STEP 2: Does the patient require the assistance of a helper? Yes. TRANSFERS: BED, CHAIR, WHEELCHAIR - STEP 3: How much assistance does the patient require from the helper? Steadying/guiding assistance TRANSFERS: BED, CHAIR, WHEELCHAIR - SCORE: 4-MIN TRANSFERS: TOILET: Activity did not occur on this shift TRANSFERS: TOILET - SCORE: 0-UNK TRANSFERS: SHOWER: Activity did not occur on this shift TRANSFERS: SHOWER - SCORE: 0-UNK TRANSFERS: TUB: Activity did not occur on this shift TRANSFERS: TUB - SCORE: 0-UNK LOCOMOTION: WALK: LOCOMOTION: WALK - STEP 1: Does the patient need help from a person or device, or need extra time to walk 150 feet? Yes. LOCOMOTION: WALK - STEP 2: How much assistance does the patient require to walk a minimum of 150 feet? Only incidental help such as contact guarding or steadying LOCOMOTION: WALK - SCORE: 4-MIN LOCOMOTION: WHEELCHAIR: LOCOMOTION: WHEELCHAIR - STEP 1: Does the patient need help to go 150 feet in a wheelchair? Yes. LOCOMOTION: WHEELCHAIR - STEP 2: How much assistance does the patient need from the helper? Only supervision, cuing, or coaxing LOCOMOTION: WHEELCHAIR - SCORE: 5-SUP LOCOMOTION: STAIRS: LOCOMOTION: STAIRS - STEP 1: Does the patient need help to go up and down 12 to 14 stairs? Yes. LOCOMOTION: STAIRS - STEP 2: How much assistance does the patient need from the helper to go a minimum of 12 to 14 stairs? Only in cidental help such as contact guarding or steadying LOCOMOTION: STAIRS - SCORE: 4-MIN COMPREHENSION: COMPREHENSION - SCORE: 0-UNK EXPRESSION EXPRESSION - SCORE: 0-UNK SOCIAL INTERACTION: SOCIAL INTERACTION - SCORE: 0-UNK PROBLEM SOLVING: PROBLEM SOLVING - SCORE: 0-UNK MEMORY: MEMORY - SCORE: 0-UNK SIGNATURE PANEL: The following modified sections: Transfers: Bed, Chair, Wheelchair - Score, Transfers: Toilet - Score , Locomotion: Walk - Score, Locomotion: Wheelchair - Score, Locomotion: Stairs - Score were [electron sin] signed by Alon Kingston PTA on SatDec 23 2018 15:38:54 GMT-0500 (Central Daylight Time)
--- NOTE | 2019-01-01 11:13 | R.DS ---
FACILITY [facility] MR# [id number] NAME TYLOR GUZMAN ADDRESS [address] [place] [address] [address] [id number] PHONE DATE OF 1950 AGE 68 SSN# [id number] GENDER Male DEXTERITY Right-handed MARITAL STATUS RACE White ENCOUNTER PHYSICIAN Dr. New Blunt M.D. REFERRING DOCTOR Josee Little REFERRING FACILITY [facility] DISCHARGE DIAGNOSIS: - Cardiac 09 - Cardiac Disorders (09) Coronary artery disease, status post 4 vessel bypass grafting, Hypertension, Constipation. DISCHARGE COMORBIDITIES: - N/A CHRONIC KIDNEY DISEASE hypertension constipation DATE OF ADMISSION 12/12/2018 19:50 (CDT) MEDICATION ALLERGIES: No Known Drug Allergies (NKDA) ENVIRONMENTAL ALLERGIES: - Substance Allergies None Known - Other Allergies None Known NURSING: - Shower allowing shower ACTIVITIES OOB only with supervision THERAPIES: - Occupational Therapy Evaluate and Treat - Physical Therapy Evaluate and Treat HISTORY OF PRESENT ILLNESS: Pt. is a 68 yo Right-handed white male.On 12/01/2018 he was admitted to [facility] with diagnosis Coronary artery disease, status post 4 vessel bypass grafting, Hypertension, Constipation.His impairment category is Cardiac 09 - Cardiac Disorders ().Pre-morbidly, Pt. was in dependent/mod-I in Self-Care and Sphincter Control; and he had good Sphincter Control.Currently, he h as deficits of Transfers Control, Communication, Social Cognition, Endurance, Balance, Safety Awarene ss, Self-Care, and Locomotion.Pt. is now referred to [facility] for acute in-p atient rehabilitation in order to maximize patient's functional independence in activities of daily l iving, strength, ROM, and mobility.- Rehab Goal Patient has realistic goal of being discharged at assistance level 6-Deuce to reside at Home with Fam reynaldo/Relatives. HOSPITAL COURSE: DIET - LIQUID TEXTURE: On 12/11/2018 Pt was upgraded to Regular Diet - Liquid Texture. DIET - SOLID TEXTURE: On 12/11/2018 Pt was upgraded to Regular Diet - Solid Texture. DIET TYPE: On 12/11/2018 Pt was upgraded to Regular Diet Type. TUBE FEED: On 12/11/2018 Pt was changed to N/A Tube Feed. DISCHARGE PHYSICAL EXAM - Gen Alert and awake Lying in bed No apparent distress Oriented to: person, time, and place - Skin Sternal incision is intact No abnormalities - Eyes No abnormalities - ENMT No abnormalities - Neck No abnormalities - CVS RRR - Chest No abnormalities - Abd +bowel sounds - GI Soft Deferred - No abnormalities - Ext No significant edema - MSK 4+/5 weakness in both lower extremities. - Neuro No focal deficits - Psych No abnormalities FUNCTIONAL STATUS: - Self-Care A. Eating 7-Ind B. Grooming 7-Ind C. Bathing 5-sup D. Dressing - Upper 5-sup E. Dressing - Lower 5-sup F. Toileting 5-sup - Sphincter Control G: Bladder control 7-Ind H: Bowel control 7-Ind - Transfers Control I. Bed/Chair/Wheelchair 5-sup J. Toilet 5-sup K. Tub/Shower 6-Deuce - Locomotion L. Walk/Wheelchair (W) 5-sup M. Stairs 4-Kamilla - Communication N. Comprehension (B) 6-Deuce O. Expression (B) 6-Deuce - Social Cognition P. Social Interaction 6-Deuce Q. Problem Solving 6-Deuce R. Memory 6-Deuce - Endurance Poor - Balance Poor - Safety Awareness Poor DISCHARGE INSTRUCTIONS: - N/A Aspirin 81 mg and Plavix 75 mg daily. DISCHARGE PLAN, FOLLOW UP CARE PROVISIONS: - Estimated Length of Stay (days) 10. - Consensus on plan Discharge plan has been discussed with primary caregiver. Patient/Family is in agreement with the jaison n. Primary caregiver is in agreement with the plan. - Patient/Family Goals Return home with assistance. - Planned Living Setting Upon Discharge Home, to live with Family/Relatives. SIGNATURE PANEL: (CDT)
== END 2018-12-23 15:45 | DRG 303 ==
LOC: 5TH 12-12 18:09
PROVIDERS: ADMIT Psychiatry & Neurology Neurology with Special Qualifications in Child Neurology; ATTEND Psychiatry & Neurology Neurology with Special Qualifications in Child Neurology
DX: I25.10 Atherosclerotic heart disease of native coronary artery without angina pectoris (principal); I12.9 Hypertensive chronic kidney disease with stage 1 through stage 4 chronic kidney disease, or unspecified chronic kidney disease; N18.9 Chronic kidney disease, unspecified; K59.00 Constipation, unspecified; B35.1 Tinea unguium; L60.2 Onychogryphosis; Z95.1 Presence of aortocoronary bypass graft
CPT/HCPCS: 36415; 70450; 71045; 74018; 74230; 80048; 80076; 81001; 82040; 82465; 83718; 83735; 84134; 85025; 87086; 87088; 92507; 92523; 92526; 92611; 93005; 97110; 97116; 97127; 97150; 97162; 97167; 97530; 97542; J1650

== ENCOUNTER 2019-06-11 06:48 | Day surgery (SDC) | payer OTHER ==
--- NOTE | 2019-06-10 16:19 | RAD REPORT ---
EXAM DESCRIPTION: RAD - Chest Pa And Lat (2 Views) - 06/10/2019 4:11 pm CLINICAL HISTORY: preop Chest pain. COMPARISON: Abdomen 1 View (KUB) dated 12/15/2018; Chest Single View dated 12/15/2018; Chest Single View dated 12/01/2018; Chest Single View dated 08/24/2018 FINDINGS: The lungs are clear. The heart is normal in size. No displaced fractures. Sternotomy wires are noted. IMPRESSION: No acute or concerning finding suspected.
--- NOTE | 2019-06-10 16:21 | RAD REPORT ---
EXAM DESCRIPTION: RAD - Hand Left 2 View - 06/10/2019 4:11 pm CLINICAL HISTORY: preop Pain and swelling COMPARISON: No comparisons FINDINGS: Small metallic foreign body projects along the palmar soft tissues of the second finger al allen the radial aspect of the proximal phalanx. No fracture or dislocation.
[2019-06-10 17:12] LABS: Absolute Lymphocytes (CBC) 1.7 K/uL (0.7-4.9); Basophils % 1.3 % (0-1.3); Hematocrit 40.9 % (39.6-49.0); Lymphocytes % 26.7 % (15.3-44.8); MPV 9.9 fL (7.6-11.3); RBC Red Blood Cell Count 4.37 M/uL (4.33-5.43)
[2019-06-10 17:17] LABS: Urine Appearance CLEAR; Urine Bilirubin NEGATIVE (NEG); Urine Blood NEGATIVE (NEG); Urine Color YELLOW; Urine Glucose NEGATIVE (NEG); Urine Protein TRACE (NEG); Urine Specific Gravity 1.015 (1.005-1.030)
[2019-06-10 17:19] LABS: Urine Microscopic Reflex ORDER UMIC
[2019-06-10 17:52] LABS: Urine Bacteria <20 /HPF (NONE SEEN); Urine Culture Reflex Order NOT NEEDED; Urine RBC <5 /HPF (NONE SEEN)
--- NOTE | 2019-06-11 06:35 | EKG ---
Test Date: 2019-06-10 Test Time: 15:53:12 Fitter Armament: NAEEM MEASUREMENT RESULTS: Intervals: Rate: 57 MT: 218 QRSD: 88 QT: 422 QTc: 410 [place]: P: 31 MT: 218 QRS: -25 T: -24 INTERPRETIVE STATEMENTS: Sinus bradycardia with 1st degree AV block Otherwise normal ECG Compared to ECG 12/21/2018 12:05:21 First degree AV block now present Sinus rhythm no longer present T-wave abnormality no longer present Electronically Signed On 06-11-19 06:35:29 CDT by Cornelio Morgan
[2019-06-11] MEDS ORDERED: Ringers Lactate 1,000 ML IV ONE (08:07)
[2019-06-11] MEDS ORDERED: CEFAZOLIN/SWI 1gm 1 GM/10 ML SYR ONE (08:08)
[2019-06-11] MEDS ORDERED: FENTANYL CITR 100 MCG/2 ML ONE (08:36)
[2019-06-11] MEDS ORDERED: MIDAZOLAM HCL 2 MG/2 ML INJ ONE (08:36)
[2019-06-11] MEDS ORDERED: PROPOFOL 200 MG/20 ML VIAL IV ONE ×2 (08:36→09:18)
[2019-06-11] MEDS ORDERED: LIDOCAINE 2% MPF 5 ML VIAL ONE (08:36)
[2019-06-11] MEDS ORDERED: LIDOCAINE 1% MPF 30 ML VIAL ONE (09:20)
[2019-06-11] MEDS ORDERED: CODEINE 30MG/APAP 300MG TAB ONE (09:57)
[2019-06-11 10:07] VITALS: BP 116/78; TEMP 97.7; O2SAT 96
--- NOTE | 2019-06-12 19:00 | OP ---
Surgeon: Sergey Serrano MD [place] Cutter: Dannie. Preoperative Diagnosis: Deformed nail bed and nail plate. Postoperative Diagnosis: Deformed nail bed and nail plate. Procedure Performed: Partial excision of the nail bed with flap closure and removal of nail plate. Description Of Procedure: After satisfactory induction of general anesthesia, the left hand was prep ped with Betadine scrub and paint. Dry sterile drapes were applied in the usual manner. The arm was elevated and exsanguinated with Esmarch. Tourniquet was inflated to 250 mmHg. Hand placed on the R otalok table. Digital block with 0.1% xylocaine without epinephrine. Nail plate was removed with a periosteal elevator and then an elliptical incision was made over the deformed portion of nail bed. We got approximately 2 mm wide x 5 mm long. The flaps were undermined radially and ulnarly and advan thom closed with horizontal mattress sutures of 5-0 chromic and sewn proximally with 4-0 Pr olene to complete the nail plate. Tourniquet released. Dressed with Xeroform, 2 inch Kaitlynn. The pa tient tolerated the procedure well and returned to recovery. RIMMA/MADALYN Voice ID: [id number] Report ID: [id number]
== END 2019-06-11 11:05 | disposition home or self-care (01) ==
LOC: OR 06:48
PROVIDERS: ATTEND Specialist
PROC: 0HBQXZZ Excision of Finger Nail, External Approach (ICD-10-PCS; principal; 2019-06-11 09:00)
DX: L60.8 Other nail disorders (principal); I10 Essential (primary) hypertension; I25.10 Atherosclerotic heart disease of native coronary artery without angina pectoris; Z95.1 Presence of aortocoronary bypass graft; Z86.73 Personal history of transient ischemic attack (TIA), and cerebral infarction without residual deficits
CPT/HCPCS: 93005; 85025; 36415; 88312; 88304; 88311; 71046; 73120; 11750; J2704 ×2; J3010; J0690; J7120; 81003; 81015; J2250

== ENCOUNTER 2019-07-26 14:01 | Observation (INO) | payer OTHER ==
--- OUTSIDE RECORDS SUMMARY | 2019-07-26 14:06 | XMS REPORT ---
:1950 [facility] [address] [place] [address] Care Team Providers Name Role Phone MIGUEL [...] Value Reference Range Comments COLOR (BEAKER) (test bycf=144) Yellow CLARITY (BEAKER) (test avyz=617) Hazy SPECIFIC GRAVITY UA (BEAKER) (test jlgi=675) 1.008 1.001-1.035 PH UA (BEAKER) (test dnaj=695) 7.5 5.0-8.0 PROTEIN UA (BEAKER) (test qezh=657) 20 mg/dL Negative GLUCOSE UA (BEAKER) (test ilfi=154) Negative Negative KETONES UA (BEAKER) (test lnfw=860) Negative Negative BILIRUBIN UA (BEAKER) (test xgrl=682) Negative Negative BLOOD UA (BEAKER) (test kjlz=887) Negative Negative NITRITE UA (BEAKER) (test txeh=358) Negative Negative LEUKOCYTE ESTERASE UA (BEAKER) (test fxjy=101) Trace Negative UROBILINOGEN UA (BEAKER) (test bhcl=728) 4.0 mg/dL 0.2-1.0 RBC UA (BEAKER) (test fxcj=003) < /HPF WBC UA (BEAKER) (test dtdw=228) 3 /HPF SQUAMOUS EPITHELIAL (BEAKER) (test qgdn=213) 1 /HPF SOURCE(BEAKER) (test fhpb=6146) [id number] 05:39:00 Test Item Value Reference Range Comments PHOSPHORUS (BEAKER) (test ksqf=205) 2.8 mg/dL 2.3-4.7 CBC W/PLT COUNT & AUTO [id number] 05:18:00 Test Item Value Reference Range Comments WHITE BLOOD CELL COUNT (BEAKER) (test lmgo=991) 13.3 K/ L 3.5-10.5 RED BLOOD CELL COUNT (BEAKER) (test hopr=491) 2.86 M/ L 4.63-6.08 HEMOGLOBIN (BEAKER) (test pbvu=557) 9.1 GM/DL 13.7-17.5 HEMATOCRIT (BEAKER) (test mmsh=171) 27.5 % 40.1-51.0 MEAN CORPUSCULAR VOLUME (BEAKER) (test fctf=619) 96.2 fL 79.0-92.2 MEAN CORPUSCULAR HEMOGLOBIN (BEAKER) (test 31.8 pg 25.7-32.2 mjae=959) MEAN CORPUSCULAR HEMOGLOBIN CONC (BEAKER) (test 33.1 GM/DL 32.3-36.5 vidd=163) RED CELL DISTRIBUTION WIDTH (BEAKER) (test 15.1 % 11.6-14.4 izni=862) PLATELET COUNT (BEAKER) (test shkv=918) 225 K/CU MM 150-450 MEAN PLATELET VOLUME (BEAKER) (test yabk=403) 11.5 fL 9.4-12.4 NUCLEATED RED BLOOD CELLS (BEAKER) (test 0 /100 WBC 0-0 zqul=467) NEUTROPHILS RELATIVE PERCENT (BEAKER) (test 73 % ujxa=903) LYMPHOCYTES RELATIVE PERCENT (BEAKER) (test 16 % cdpi=903) MONOCYTES RELATIVE PERCENT (BEAKER) (test 6 % bzyu=089) EOSINOPHILS RELATIVE PERCENT (BEAKER) (test 3 % cgdx=336) BASOPHILS RELATIVE PERCENT (BEAKER) (test 1 % illu=314) NEUTROPHILS ABSOLUTE COUNT (BEAKER) (test 9.69 K/ L 1.78-5.38 uqfr=288) LYMPHOCYTES ABSOLUTE COUNT (BEAKER) (test 2.16 K/ L 1.32-3.57 fjyz=377) MONOCYTES ABSOLUTE COUNT (BEAKER) (test 0.84 K/ L 0.30-0.82 rszm=883) EOSINOPHILS ABSOLUTE COUNT (BEAKER) (test 0.39 K/ L 0.04-0.54 sfmn=511) BASOPHILS ABSOLUTE COUNT (BEAKER) (test 0.08 K/ L 0.01-0.08 vovs=242) IMMATURE GRANULOCYTES-RELATIVE PERCENT (BEAKER) 1 % 0-1 (test eukx=3744) U/S, RENAL, [id number] 02:06:00Reason for exam:->ckdShould this be performed at [...] advised to exclude infection. Signed: Eladio Gómez [facility]ort Verified Date/Time: 12/12/2018 02:06:07 Reading Location: [facility] B1 C013Y CT Body Reading Room [id number] 05:23:00 Test Item Value Reference Range Comments PHOSPHORUS (BEAKER) (test ebuh=025) 2.7 mg/dL 2.3-4.7 [id number] 05:23:00 Test Item Value Reference Range Comments MAGNESIUM (BEAKER) (test fhxv=540) 2.1 mg/dL 1.6-2.6 BASIC METABOLIC [id number] 05:23:00 Test Item Value Reference Range Comments SODIUM (BEAKER) (test 140 meq/L 136-145 yqfa=219) POTASSIUM (BEAKER) (test 3.4 meq/L 3.5-5.1 aoyi=706) CHLORIDE (BEAKER) (test 111 meq/L 98-107 wihg=554) CO2 (BEAKER) (test 24 meq/L 22-29 jjhs=826) BLOOD UREA NITROGEN 20 mg/dL 7-21 (BEAKER) (test fpqc=577) CREATININE (BEAKER) (test 1.29 mg/dL 0.57-1.25 jwop=361) GLUCOSE RANDOM (BEAKER) 110 mg/dL 70-105 (test dmdi=834) CALCIUM (BEAKER) (test 8.3 mg/dL 8.4-10.2 klif=253) EGFR (BEAKER) (test 56 mL/min/1.73 sq m ESTIMATED GFR IS NOT sdpk=0146) ACCURATE CREATININE CLEARANCE IN PREDICTING GLOMERULAR FILTRATION RATE. ESTIMATED GFR IS NOT APPLICABLE FOR DIALYSIS PATIENTS. CBC W/PLT COUNT & AUTO [id number] 05:00:00 Test Item Value Reference Range Comments WHITE BLOOD CELL COUNT (BEAKER) (test fjxb=124) 11.2 K/ L 3.5-10.5 RED BLOOD CELL COUNT (BEAKER) (test jnfq=418) 2.70 M/ L 4.63-6.08 HEMOGLOBIN (BEAKER) (test sguc=564) 8.6 GM/DL 13.7-17.5 HEMATOCRIT (BEAKER) (test ijri=291) 26.0 % 40.1-51.0 MEAN CORPUSCULAR VOLUME (BEAKER) (test nemf=929) 96.3 fL 79.0-92.2 MEAN CORPUSCULAR HEMOGLOBIN (BEAKER) (test 31.9 pg 25.7-32.2 nnkk=023) MEAN CORPUSCULAR HEMOGLOBIN CONC (BEAKER) (test 33.1 GM/DL 32.3-36.5 zcqc=033) RED CELL DISTRIBUTION WIDTH (BEAKER) (test 14.8 % 11.6-14.4 qoag=648) PLATELET COUNT (BEAKER) (test qvtv=702) 180 K/CU MM 150-450 MEAN PLATELET VOLUME (BEAKER) (test uobb=820) 12.3 fL 9.4-12.4 NUCLEATED RED BLOOD CELLS (BEAKER) (test 0 /100 WBC 0-0 reol=710) NEUTROPHILS RELATIVE PERCENT (BEAKER) (test 69 % ohgp=323) LYMPHOCYTES RELATIVE PERCENT (BEAKER) (test 15 % przl=794) MONOCYTES RELATIVE PERCENT (BEAKER) (test 9 % agct=945) EOSINOPHILS RELATIVE PERCENT (BEAKER) (test 5 % umgo=610) BASOPHILS RELATIVE PERCENT (BEAKER) (test 0 % vamh=188) NEUTROPHILS ABSOLUTE COUNT (BEAKER) (test 7.74 K/ L 1.78-5.38 yyem=526) LYMPHOCYTES ABSOLUTE COUNT (BEAKER) (test 1.71 K/ L 1.32-3.57 lkgz=392) MONOCYTES ABSOLUTE COUNT (BEAKER) (test 1.01 K/ L 0.30-0.82 mvxb=800) EOSINOPHILS ABSOLUTE COUNT (BEAKER) (test 0.51 K/ L 0.04-0.54 rypo=710) BASOPHILS ABSOLUTE COUNT (BEAKER) (test 0.05 K/ L 0.01-0.08 kirr=025) IMMATURE GRANULOCYTES-RELATIVE PERCENT (BEAKER) 2 % 0-1 (test mhzq=4950) [id number] 05:42:00 Test Item Value Reference Range Comments PHOSPHORUS (BEAKER) (test dtig=983) 2.9 mg/dL 2.3-4.7 [id number] 05:42:00 Test Item Value Reference Range Comments MAGNESIUM (BEAKER) (test wpdg=076) 2.0 mg/dL 1.6-2.6 BASIC METABOLIC [id number] 05:42:00 Test Item Value Reference Range Comments SODIUM (BEAKER) (test 139 meq/L 136-145 tflo=968) POTASSIUM (BEAKER) (test 3.8 meq/L 3.5-5.1 zowq=605) CHLORIDE (BEAKER) (test 109 meq/L 98-107 jjui=714) CO2 (BEAKER) (test 24 meq/L 22-29 imfp=871) BLOOD UREA NITROGEN 21 mg/dL 7-21 (BEAKER) (test gpef=875) CREATININE (BEAKER) (test 1.35 mg/dL 0.57-1.25 pofy=082) GLUCOSE RANDOM (BEAKER) 102 mg/dL 70-105 (test dtob=558) CALCIUM (BEAKER) (test 8.6 mg/dL 8.4-10.2 kyjc=596) EGFR (BEAKER) (test 53 mL/min/1.73 sq m ESTIMATED GFR IS NOT uukx=6561) ACCURATE CREATININE CLEARANCE IN PREDICTING GLOMERULAR FILTRATION RATE. ESTIMATED GFR IS NOT APPLICABLE FOR DIALYSIS PATIENTS. CBC W/PLT COUNT & AUTO [id number] 05:18:00 Test Item Value Reference Range Comments WHITE BLOOD CELL COUNT (BEAKER) (test ygmq=200) 10.9 K/ L 3.5-10.5 RED BLOOD CELL COUNT (BEAKER) (test iblk=900) 2.80 M/ L 4.63-6.08 HEMOGLOBIN (BEAKER) (test rqsa=471) 8.8 GM/DL 13.7-17.5 HEMATOCRIT (BEAKER) (test legu=414) 27.1 % 40.1-51.0 MEAN CORPUSCULAR VOLUME (BEAKER) (test bosl=859) 96.8 fL 79.0-92.2 MEAN CORPUSCULAR HEMOGLOBIN (BEAKER) (test 31.4 pg 25.7-32.2 dcdk=642) MEAN CORPUSCULAR HEMOGLOBIN CONC (BEAKER) (test 32.5 GM/DL 32.3-36.5 poow=386) RED CELL DISTRIBUTION WIDTH (BEAKER) (test 14.4 % 11.6-14.4 mdpx=516) PLATELET COUNT (BEAKER) (test ypjg=182) 171 K/CU MM 150-450 MEAN PLATELET VOLUME (BEAKER) (test lrns=357) 11.7 fL 9.4-12.4 NUCLEATED RED BLOOD CELLS (BEAKER) (test 0 /100 WBC 0-0 aszw=409) NEUTROPHILS RELATIVE PERCENT (BEAKER) (test 71 % bmau=666) LYMPHOCYTES RELATIVE PERCENT (BEAKER) (test 16 % kgiw=552) MONOCYTES RELATIVE PERCENT (BEAKER) (test 8 % ravk=895) EOSINOPHILS RELATIVE PERCENT (BEAKER) (test 4 % gbbq=330) BASOPHILS RELATIVE PERCENT (BEAKER) (test 0 % ebjd=764) NEUTROPHILS ABSOLUTE COUNT (BEAKER) (test 7.66 K/ L 1.78-5.38 rtau=473) LYMPHOCYTES ABSOLUTE COUNT (BEAKER) (test 1.78 K/ L 1.32-3.57 genf=585) MONOCYTES ABSOLUTE COUNT (BEAKER) (test 0.83 K/ L 0.30-0.82 qsxr=461) EOSINOPHILS ABSOLUTE COUNT (BEAKER) (test 0.44 K/ L 0.04-0.54 dbvc=486) BASOPHILS ABSOLUTE COUNT (BEAKER) (test 0.04 K/ L 0.01-0.08 ygxn=230) IMMATURE GRANULOCYTES-RELATIVE PERCENT (BEAKER) 1 % 0-1 (test lsos=1748) RAD, CHEST, 1 VIEW, NON [id number] 10:12:00Reason for exam:->post operative cardiacShould this be [...] Camejo MDReport Verified Date/Time: 12/09/201810:12:03 Reading Location: [facility] Radiology Reading Room CBC W/PLT COUNT & AUTO [id number] 07:16:00 Test Item Value Reference Range Comments WHITE BLOOD CELL COUNT (BEAKER) (test cbmv=516) 9.7 K/ L 3.5-10.5 RED BLOOD CELL COUNT (BEAKER) (test rkzs=040) 2.47 M/ L 4.63-6.08 HEMOGLOBIN (BEAKER) (test uyzq=330) 7.8 GM/DL 13.7-17.5 HEMATOCRIT (BEAKER) (test cufe=321) 23.9 % 40.1-51.0 MEAN CORPUSCULAR VOLUME (BEAKER) (test kiyx=547) 96.8 fL 79.0-92.2 MEAN CORPUSCULAR HEMOGLOBIN (BEAKER) (test 31.6 pg 25.7-32.2 csbx=035) MEAN CORPUSCULAR HEMOGLOBIN CONC (BEAKER) (test 32.6 GM/DL 32.3-36.5 wasn=465) RED CELL DISTRIBUTION WIDTH (BEAKER) (test 14.8 % 11.6-14.4 idmf=991) PLATELET COUNT (BEAKER) (test fqke=772) 131 K/CU MM 150-450 MEAN PLATELET VOLUME (BEAKER) (test yjil=633) 12.0 fL 9.4-12.4 NUCLEATED RED BLOOD CELLS (BEAKER) (test 1 /100 WBC 0-0 ukjr=935) NEUTROPHILS RELATIVE PERCENT (BEAKER) (test 72 % okke=871) LYMPHOCYTES RELATIVE PERCENT (BEAKER) (test 17 % zlwj=274) MONOCYTES RELATIVE PERCENT (BEAKER) (test 8 % ujgj=285) EOSINOPHILS RELATIVE PERCENT (BEAKER) (test 2 % upnw=192) BASOPHILS RELATIVE PERCENT (BEAKER) (test 0 % kkbc=465) NEUTROPHILS ABSOLUTE COUNT (BEAKER) (test 6.97 K/ L 1.78-5.38 hcsb=779) LYMPHOCYTES ABSOLUTE COUNT (BEAKER) (test 1.67 K/ L 1.32-3.57 siwm=249) MONOCYTES ABSOLUTE COUNT (BEAKER) (test 0.75 K/ L 0.30-0.82 enyc=345) EOSINOPHILS ABSOLUTE COUNT (BEAKER) (test 0.19 K/ L 0.04-0.54 kovk=030) BASOPHILS ABSOLUTE COUNT (BEAKER) (test 0.02 K/ L 0.01-0.08 qwlt=606) IMMATURE GRANULOCYTES-RELATIVE PERCENT (BEAKER) 1 % 0-1 (test qbro=5829) [id number] 07:10:00 Test Item Value Reference Range Comments PHOSPHORUS (BEAKER) (test vgew=902) 2.5 mg/dL 2.3-4.7 [id number] 07:10:00 Test Item Value Reference Range Comments MAGNESIUM (BEAKER) (test yrzc=262) 2.1 mg/dL 1.6-2.6 BASIC METABOLIC [id number] 07:10:00 Test Item Value Reference Range Comments SODIUM (BEAKER) (test 140 meq/L 136-145 xnxx=309) POTASSIUM (BEAKER) (test 3.6 meq/L 3.5-5.1 dbvl=432) CHLORIDE (BEAKER) (test 110 meq/L 98-107 cjgc=350) CO2 (BEAKER) (test 25 meq/L 22-29 ttbn=645) BLOOD UREA NITROGEN 30 mg/dL 7-21 (BEAKER) (test yelm=418) CREATININE (BEAKER) (test 1.47 mg/dL 0.57-1.25 gixe=196) GLUCOSE RANDOM (BEAKER) 101 mg/dL 70-105 (test nsbo=993) CALCIUM (BEAKER) (test 8.4 mg/dL 8.4-10.2 mkhf=306) EGFR (BEAKER) (test 48 mL/min/1.73 sq m ESTIMATED GFR IS NOT rzgj=5272) ACCURATE CREATININE CLEARANCE IN PREDICTING GLOMERULAR FILTRATION RATE. ESTIMATED GFR IS NOT APPLICABLE FOR DIALYSIS PATIENTS. HEMOGLOBIN AND [id number] 19:10:00 Test Item Value Reference Range Comments HEMOGLOBIN (BEAKER) (test ujhu=188) 8.1 GM/DL 13.7-17.5 HEMATOCRIT (BEAKER) (test speg=916) 24.8 % 40.1-51.0 RAD, CHEST, 1 VIEW, NON [id number] 07:39:00Reason for exam:->post operative cardiacShould this be [...] MDReport Verified Date/Time: 12/08/2018 07:39:23 Reading Location: [facility] Radiology Reading Room [id number] 05:54:00 Test Item Value Reference Range Comments PHOSPHORUS (BEAKER) (test keaq=069) 2.7 mg/dL 2.3-4.7 BASIC METABOLIC [id number] 05:54:00 Test Item Value Reference Range Comments SODIUM (BEAKER) (test 140 meq/L 136-145 qitm=679) POTASSIUM (BEAKER) (test 4.0 meq/L 3.5-5.1 wwwj=667) CHLORIDE (BEAKER) (test 110 meq/L 98-107 gvqd=150) CO2 (BEAKER) (test 24 meq/L 22-29 snvu=511) BLOOD UREA NITROGEN 38 mg/dL 7-21 (BEAKER) (test amnp=655) CREATININE (BEAKER) (test 1.70 mg/dL 0.57-1.25 txbo=926) GLUCOSE RANDOM (BEAKER) 116 mg/dL 70-105 (test cbba=610) CALCIUM (BEAKER) (test 8.8 mg/dL 8.4-10.2 kbbz=400) EGFR (BEAKER) (test 40 mL/min/1.73 sq m ESTIMATED GFR IS NOT tfvj=9340) ACCURATE CREATININE CLEARANCE IN PREDICTING GLOMERULAR FILTRATION RATE. ESTIMATED GFR IS NOT APPLICABLE FOR DIALYSIS PATIENTS. CBC W/PLT COUNT & AUTO [id number] 04:57:00 Test Item Value Reference Range Comments WHITE BLOOD CELL COUNT (BEAKER) (test oyne=055) 12.8 K/ L 3.5-10.5 RED BLOOD CELL COUNT (BEAKER) (test otut=698) 2.20 M/ L 4.63-6.08 HEMOGLOBIN (BEAKER) (test jjfg=179) 7.0 GM/DL 13.7-17.5 HEMATOCRIT (BEAKER) (test oaho=989) 21.4 % 40.1-51.0 MEAN CORPUSCULAR VOLUME (BEAKER) (test sazi=879) 97.3 fL 79.0-92.2 MEAN CORPUSCULAR HEMOGLOBIN (BEAKER) (test 31.8 pg 25.7-32.2 qcle=785) MEAN CORPUSCULAR HEMOGLOBIN CONC (BEAKER) (test 32.7 GM/DL 32.3-36.5 suww=530) RED CELL DISTRIBUTION WIDTH (BEAKER) (test 15.3 % 11.6-14.4 bivb=898) PLATELET COUNT (BEAKER) (test ghti=225) 131 K/CU MM 150-450 MEAN PLATELET VOLUME (BEAKER) (test djzx=881) 12.0 fL 9.4-12.4 NUCLEATED RED BLOOD CELLS (BEAKER) (test 1 /100 WBC 0-0 jrlx=390) NEUTROPHILS RELATIVE PERCENT (BEAKER) (test 79 % mzwd=049) LYMPHOCYTES RELATIVE PERCENT (BEAKER) (test 12 % dhoq=365) MONOCYTES RELATIVE PERCENT (BEAKER) (test 9 % kmvc=590) EOSINOPHILS RELATIVE PERCENT (BEAKER) (test 0 % vrup=716) BASOPHILS RELATIVE PERCENT (BEAKER) (test 0 % bhsg=038) NEUTROPHILS ABSOLUTE COUNT (BEAKER) (test 10.09 K/ L 1.78-5.38 mswu=722) LYMPHOCYTES ABSOLUTE COUNT (BEAKER) (test 1.48 K/ L 1.32-3.57 zbyd=213) MONOCYTES ABSOLUTE COUNT (BEAKER) (test 1.10 K/ L 0.30-0.82 llmr=434) EOSINOPHILS ABSOLUTE COUNT (BEAKER) (test 0.01 K/ L 0.04-0.54 uwft=500) BASOPHILS ABSOLUTE COUNT (BEAKER) (test 0.01 K/ L 0.01-0.08 brtw=958) IMMATURE GRANULOCYTES-RELATIVE PERCENT (BEAKER) 1 % 0-1 (test zfeg=7289) BASIC METABOLIC [id number] 12:27:00 Test Item Value Reference Range Comments SODIUM (BEAKER) (test 141 meq/L 136-145 egar=037) POTASSIUM (BEAKER) (test 4.2 meq/L 3.5-5.1 jtpj=674) CHLORIDE (BEAKER) (test 110 meq/L 98-107 jdzh=684) CO2 (BEAKER) (test 25 meq/L 22-29 xgdu=154) BLOOD UREA NITROGEN 34 mg/dL 7-21 (BEAKER) (test nflm=114) CREATININE (BEAKER) (test 1.77 mg/dL 0.57-1.25 dyex=239) GLUCOSE RANDOM (BEAKER) 128 mg/dL 70-105 (test yusv=602) CALCIUM (BEAKER) (test 9.1 mg/dL 8.4-10.2 faud=534) EGFR (BEAKER) (test 39 mL/min/1.73 sq m ESTIMATED GFR IS NOT izum=9015) ACCURATE CREATININE CLEARANCE IN PREDICTING GLOMERULAR FILTRATION RATE. ESTIMATED GFR IS NOT APPLICABLE FOR DIALYSIS PATIENTS. HEMOGLOBIN AND [id number] 12:09:00 Test Item Value Reference Range Comments HEMOGLOBIN (BEAKER) (test bunf=135) 7.3 GM/DL 13.7-17.5 HEMATOCRIT (BEAKER) (test cvac=767) 23.0 % 40.1-51.0 [id number] 07:19:00 Test Item Value Reference Range Comments PHOSPHORUS (BEAKER) (test gktn=501) 3.0 mg/dL 2.3-4.7 [id number] 07:19:00 Test Item Value Reference Range Comments MAGNESIUM (BEAKER) (test hesq=163) 2.4 mg/dL 1.6-2.6 BASIC METABOLIC [id number] 07:19:00 Test Item Value Reference Range Comments SODIUM (BEAKER) (test 141 meq/L 136-145 znnj=288) POTASSIUM (BEAKER) (test 4.3 meq/L 3.5-5.1 axyw=000) CHLORIDE (BEAKER) (test 111 meq/L 98-107 yzvi=945) CO2 (BEAKER) (test 24 meq/L 22-29 fldh=872) BLOOD UREA NITROGEN 33 mg/dL 7-21 (BEAKER) (test biph=285) CREATININE (BEAKER) (test 1.75 mg/dL 0.57-1.25 bsbe=640) GLUCOSE RANDOM (BEAKER) 119 mg/dL 70-105 (test wunf=971) CALCIUM (BEAKER) (test 8.7 mg/dL 8.4-10.2 ihko=534) EGFR (BEAKER) (test 39 mL/min/1.73 sq m ESTIMATED GFR IS NOT liuj=1133) ACCURATE CREATININE CLEARANCE IN PREDICTING GLOMERULAR FILTRATION RATE. ESTIMATED GFR IS NOT APPLICABLE FOR DIALYSIS PATIENTS. CBC (HEMOGRAM ONLY)2018-12-07 05:27:00 Test Item Value Reference Range Comments WHITE BLOOD CELL COUNT (BEAKER) (test cqkt=969) 14.5 K/ L 3.5-10.5 RED BLOOD CELL COUNT (BEAKER) (test iwku=844) 2.29 M/ L 4.63-6.08 HEMOGLOBIN (BEAKER) (test gqod=340) 7.3 GM/DL 13.7-17.5 HEMATOCRIT (BEAKER) (test qpxe=910) 22.2 % 40.1-51.0 MEAN CORPUSCULAR VOLUME (BEAKER) (test yagd=065) 96.9 fL 79.0-92.2 MEAN CORPUSCULAR HEMOGLOBIN (BEAKER) (test 31.9 pg 25.7-32.2 tohc=336) MEAN CORPUSCULAR HEMOGLOBIN CONC (BEAKER) (test 32.9 GM/DL 32.3-36.5 cdep=092) RED CELL DISTRIBUTION WIDTH (BEAKER) (test 15.2 % 11.6-14.4 nngi=266) PLATELET COUNT (BEAKER) (test xlkr=575) 159 K/CU MM 150-450 MEAN PLATELET VOLUME (BEAKER) (test eqtw=803) 11.9 fL 9.4-12.4 NUCLEATED RED BLOOD CELLS (BEAKER) (test 0 /100 WBC 0-0 meyi=302) RAD, CHEST, 1 VIEW, NON [id number] 05:15:00Reason for exam:->post operative cardiacShould this be [...] Henriquez Verified Date/Time: 12/07/2018 05:15:09 Reading Location: [address] Transitional Reading Room BASIC METABOLIC [id number] 00:00:00 Test Item Value Reference Range Comments SODIUM (BEAKER) (test 141 meq/L 136-145 lgeb=040) POTASSIUM (BEAKER) (test 4.4 meq/L 3.5-5.1 ingx=134) CHLORIDE (BEAKER) (test 110 meq/L 98-107 pkyq=653) CO2 (BEAKER) (test 22 meq/L 22-29 ifjn=413) BLOOD UREA NITROGEN 32 mg/dL 7-21 (BEAKER) (test qmxa=185) CREATININE (BEAKER) (test 1.78 mg/dL 0.57-1.25 rsmm=677) GLUCOSE RANDOM (BEAKER) 153 mg/dL 70-105 (test qzmw=828) CALCIUM (BEAKER) (test 8.9 mg/dL 8.4-10.2 dike=038) EGFR (BEAKER) (test 38 mL/min/1.73 sq m ESTIMATED GFR IS NOT zaoq=1990) ACCURATE CREATININE CLEARANCE IN PREDICTING GLOMERULAR FILTRATION RATE. ESTIMATED GFR IS NOT APPLICABLE FOR DIALYSIS PATIENTS. HEMOGLOBIN AND [id number] 22:57:00 Test Item Value Reference Range Comments HEMOGLOBIN (BEAKER) (test tzdz=928) 6.9 GM/DL 13.7-17.5 HEMATOCRIT (BEAKER) (test kzpe=354) 21.1 % 40.1-51.0 BASIC METABOLIC [id number] 16:15:00 Test Item Value Reference Range Comments SODIUM (BEAKER) (test 140 meq/L 136-145 prte=545) POTASSIUM (BEAKER) (test 5.0 meq/L 3.5-5.1 Specimen slightly jfik=567) hemolyzed CHLORIDE (BEAKER) (test 110 meq/L 98-107 rnhp=536) CO2 (BEAKER) (test 22 meq/L 22-29 znqh=150) BLOOD UREA NITROGEN 30 mg/dL 7-21 (BEAKER) (test bxyv=226) CREATININE (BEAKER) (test 1.77 mg/dL 0.57-1.25 Specimen slightly xvrr=704) hemolyzed GLUCOSE RANDOM (BEAKER) 146 mg/dL 70-105 (test nodk=131) CALCIUM (BEAKER) (test 8.8 mg/dL 8.4-10.2 zfln=527) EGFR (BEAKER) (test 39 mL/min/1.73 sq m ESTIMATED GFR IS NOT bjhl=7455) ACCURATE CREATININE CLEARANCE IN PREDICTING GLOMERULAR FILTRATION RATE. ESTIMATED GFR IS NOT APPLICABLE FOR DIALYSIS PATIENTS. HEMOGLOBIN AND [id number] 15:58:00 Test Item Value Reference Range Comments HEMOGLOBIN (BEAKER) (test lzil=124) 7.2 GM/DL 13.7-17.5 HEMATOCRIT (BEAKER) (test qbxs=880) 22.0 % 40.1-51.0 PROTEIN ELECTROPHORESIS, [id number] 11:34:00 Test Item Value Reference Range Comments ALBUMIN FRACTION (BEAKER) 3.1 g/dL 3.5-5.5 (test qlte=900) ALPHA 1 FRACTION (BEAKER) 0.2 g/dL 0.2-0.4 (test jlws=127) ALPHA 2 FRACTION (BEAKER) 0.8 g/dL 0.5-0.9 (test pzod=102) BETA FRACTION (BEAKER) (test 0.8 g/dL 0.6-1.1 dkbg=662) GAMMA GLOBULIN FRACTION 1.1 g/dL 0.7-1.7 (BEAKER) (test skhj=223) INTERPRETATION-119 (BEAKER) All fractions present in (test nfsb=6527) expected distribution with slight decrease in serum albumin. No monoclonal bands detected. [id number] Terrie Rubio MD (BEAKER) (test elxq=3823) (electronic signature) PROTEIN TOTAL SERUM, SPEP 6.1 gm/dL 6.0-8.3 (BEAKER) (test kmbj=6198) [id number] 10:57:00 Test Item Value Reference Range Comments POTASSIUM (BEAKER) (test 5.4 meq/L 3.5-5.1 Specimen slightly hemolyzed eofq=704) Every 8 hours PRN for Creatinine greater than or equal to 2 mg/dL.CBC W/PLT COUNT & AUTO [id number] 10:43:00 Test Item Value Reference Range Comments WHITE BLOOD CELL COUNT (BEAKER) (test xdwm=867) 11.6 K/ L 3.5-10.5 RED BLOOD CELL COUNT (BEAKER) (test bxhc=331) 2.33 M/ L 4.63-6.08 HEMOGLOBIN (BEAKER) (test rsmk=052) 7.5 GM/DL 13.7-17.5 HEMATOCRIT (BEAKER) (test wdom=278) 23.2 % 40.1-51.0 MEAN CORPUSCULAR VOLUME (BEAKER) (test awbw=640) 99.6 fL 79.0-92.2 MEAN CORPUSCULAR HEMOGLOBIN (BEAKER) (test 32.2 pg 25.7-32.2 fcxs=501) MEAN CORPUSCULAR HEMOGLOBIN CONC (BEAKER) (test 32.3 GM/DL 32.3-36.5 wmfh=097) RED CELL DISTRIBUTION WIDTH (BEAKER) (test 13.7 % 11.6-14.4 lmzi=491) PLATELET COUNT (BEAKER) (test hafp=516) 203 K/CU MM 150-450 MEAN PLATELET VOLUME (BEAKER) (test gowl=917) 11.8 fL 9.4-12.4 NUCLEATED RED BLOOD CELLS (BEAKER) (test 0 /100 WBC 0-0 ouyu=591) NEUTROPHILS RELATIVE PERCENT (BEAKER) (test 85 % ihdu=536) LYMPHOCYTES RELATIVE PERCENT (BEAKER) (test 8 % sajy=063) MONOCYTES RELATIVE PERCENT (BEAKER) (test 6 % teas=754) EOSINOPHILS RELATIVE PERCENT (BEAKER) (test 0 % zlwb=312) BASOPHILS RELATIVE PERCENT (BEAKER) (test 0 % cfyw=111) NEUTROPHILS ABSOLUTE COUNT (BEAKER) (test 9.92 K/ L 1.78-5.38 grrr=280) LYMPHOCYTES ABSOLUTE COUNT (BEAKER) (test 0.95 K/ L 1.32-3.57 ifgs=076) MONOCYTES ABSOLUTE COUNT (BEAKER) (test 0.68 K/ L 0.30-0.82 tnou=402) EOSINOPHILS ABSOLUTE COUNT (BEAKER) (test 0.00 K/ L 0.04-0.54 pfdk=048) BASOPHILS ABSOLUTE COUNT (BEAKER) (test 0.01 K/ L 0.01-0.08 qhqy=911) IMMATURE GRANULOCYTES-RELATIVE PERCENT (BEAKER) 1 % 0-1 (test rwbh=2132) RAD, CHEST, 1 VIEW, NON [id number] 08:09:00Reason for exam:->post operative cardiacShould this be [...] place. Impression: No interval change. Signed: Tylor Griffith MDReport Verified Date/Time: 12/06/2018 08:09:04 Reading Location: [facility] B1 [id number] Ortho Consult ReadingRoom POTASSIUM-STAT [id number] 06:31:00 Test Item Value Reference Range Comments POTASSIUM (BEAKER) (test daax=740) 4.9 meq/L 3.6-5.5 BLOOD GAS, [id number] 06:20:00 Test Item Value Reference Range Comments PH ARTERIAL (BEAKER) (test hbva=758) 7.40 7.35-7.45 PCO2 ARTERIAL (BEAKER) (test mcdl=210) 37 mmHg 35-45 PO2 ARTERIAL (BEAKER) (test qqeb=475) 78 mmHg 80-90 O2 SATURATION ARTERIAL (BEAKER) (test ccxr=520) 95.7 % 96.0-97.0 HCO3 ARTERIAL (BEAKER) (test svzs=704) 22 mmol/L 21-29 BASE EXCESS ARTERIAL (BEAKER) (test khah=558) -2.4 mmol/L -2.0-3.0 PATIENT TEMPERATURE (BEAKER) (test pdpb=4521) 36.8 C FIO2 (BEAKER) (test gczt=1865) 21.0 % [id number] 06:11:00 Test Item Value Reference Range Comments PHOSPHORUS (BEAKER) (test owdb=262) 4.3 mg/dL 2.3-4.7 [id number] 06:11:00 Test Item Value Reference Range Comments MAGNESIUM (BEAKER) (test zlbw=241) 2.3 mg/dL 1.6-2.6 BASIC METABOLIC [id number] 06:11:00 Test Item Value Reference Range Comments SODIUM (BEAKER) (test 140 meq/L 136-145 medq=811) POTASSIUM (BEAKER) (test 5.6 meq/L 3.5-5.1 keuc=963) CHLORIDE (BEAKER) (test 111 meq/L 98-107 nvrn=861) CO2 (BEAKER) (test 21 meq/L 22-29 fiai=462) BLOOD UREA NITROGEN 25 mg/dL 7-21 (BEAKER) (test jbam=611) CREATININE (BEAKER) (test 1.74 mg/dL 0.57-1.25 ktop=596) GLUCOSE RANDOM (BEAKER) 171 mg/dL 70-105 (test dovh=910) CALCIUM (BEAKER) (test 8.8 mg/dL 8.4-10.2 yiph=944) EGFR (BEAKER) (test 39 mL/min/1.73 sq m ESTIMATED GFR IS NOT wpvh=0013) ACCURATE CREATININE CLEARANCE IN PREDICTING GLOMERULAR FILTRATION RATE. ESTIMATED GFR IS NOT APPLICABLE FOR DIALYSIS PATIENTS. CBC (HEMOGRAM ONLY)2018-12-06 05:01:00 Test Item Value Reference Range Comments WHITE BLOOD CELL COUNT (BEAKER) (test ssjh=601) 11.6 K/ L 3.5-10.5 RED BLOOD CELL COUNT (BEAKER) (test kxob=140) 2.45 M/ L 4.63-6.08 HEMOGLOBIN (BEAKER) (test tfhd=187) 7.7 GM/DL 13.7-17.5 HEMATOCRIT (BEAKER) (test jyfv=461) 24.5 % 40.1-51.0 MEAN CORPUSCULAR VOLUME (BEAKER) (test mvxm=362) 100.0 fL 79.0-92.2 MEAN CORPUSCULAR HEMOGLOBIN (BEAKER) (test 31.4 pg 25.7-32.2 prcw=476) MEAN CORPUSCULAR HEMOGLOBIN CONC (BEAKER) (test 31.4 GM/DL 32.3-36.5 uwrh=369) RED CELL DISTRIBUTION WIDTH (BEAKER) (test 13.7 % 11.6-14.4 sthh=469) PLATELET COUNT (BEAKER) (test mpjf=512) 203 K/CU MM 150-450 MEAN PLATELET VOLUME (BEAKER) (test jmjn=921) 11.2 fL 9.4-12.4 NUCLEATED RED BLOOD CELLS (BEAKER) (test 0 /100 WBC 0-0 wgtg=663) PLATELET [id number] 04:57:00 Test Item Value Reference Range Comments PLATELET COUNT (BEAKER) (test vbab=076) 203 K/CU MM 150-450 RAD, CHEST, 1 VIEW, NON [id number] 00:32:00Reason for exam:->chest tubesFINAL REPORT EXAMINATION: AP [...] MDReport Verified Date/Time: 12/06/2018 00:32:25 Reading Location: [address] Reading Room Electronically signedby: OSMEL MCCANN M.D. on 12/06/2018 12:32 [id number] 23:36:00 Test Item Value Reference Range Comments PROTIME (BEAKER) (test jdqz=197) 16.6 seconds 11.7-14.7 INR (BEAKER) (test mqeh=399) 1.3 <=5.9 PARTIAL THROMBOPLASTIN TIME (BEAKER) (test 32.4 seconds 22.5-36.0 axgi=673) RECOMMENDED COUMADIN/WARFARIN INR THERAPY RANGESSTANDARD DOSE: 2.0 - 3.0 Includes: PROPHYLAXIS forvenous thrombosis, systemic embolization; TREATMENT for venous thrombosis and/or pulmonary embolus.HIGH RISK: Target INR is 2.5-3.5 for patients with mechanical heart valves.[id number] 23:35:00 Test Item Value Reference Range Comments FIBRINOGEN LEVEL (BEAKER) (test wddh=039) 340 mg/dl 225-434 CBC W/PLT COUNT & AUTO [id number] 23:15:00 Test Item Value Reference Range Comments WHITE BLOOD CELL COUNT (BEAKER) (test wzju=601) 11.8 K/ L 3.5-10.5 RED BLOOD CELL COUNT (BEAKER) (test mlco=179) 2.69 M/ L 4.63-6.08 HEMOGLOBIN (BEAKER) (test pgbd=061) 8.6 GM/DL 13.7-17.5 HEMATOCRIT (BEAKER) (test obip=474) 26.4 % 40.1-51.0 MEAN CORPUSCULAR VOLUME (BEAKER) (test glzm=077) 98.1 fL 79.0-92.2 MEAN CORPUSCULAR HEMOGLOBIN (BEAKER) (test 32.0 pg 25.7-32.2 aylj=439) MEAN CORPUSCULAR HEMOGLOBIN CONC (BEAKER) (test 32.6 GM/DL 32.3-36.5 buqo=573) RED CELL DISTRIBUTION WIDTH (BEAKER) (test 13.4 % 11.6-14.4 xkkk=292) PLATELET COUNT (BEAKER) (test fhgm=500) 160 K/CU MM 150-450 MEAN PLATELET VOLUME (BEAKER) (test lfpa=936) 11.1 fL 9.4-12.4 NUCLEATED RED BLOOD CELLS (BEAKER) (test 0 /100 WBC 0-0 cxdz=329) NEUTROPHILS RELATIVE PERCENT (BEAKER) (test 87 % dflm=715) LYMPHOCYTES RELATIVE PERCENT (BEAKER) (test 5 % dzix=062) MONOCYTES RELATIVE PERCENT (BEAKER) (test 6 % wxvc=330) EOSINOPHILS RELATIVE PERCENT (BEAKER) (test 0 % neth=817) BASOPHILS RELATIVE PERCENT (BEAKER) (test 0 % kmma=792) NEUTROPHILS ABSOLUTE COUNT (BEAKER) (test 10.30 K/ L 1.78-5.38 wmln=604) LYMPHOCYTES ABSOLUTE COUNT (BEAKER) (test 0.64 K/ L 1.32-3.57 xord=569) MONOCYTES ABSOLUTE COUNT (BEAKER) (test 0.75 K/ L 0.30-0.82 jycm=009) EOSINOPHILS ABSOLUTE COUNT (BEAKER) (test 0.00 K/ L 0.04-0.54 aafg=789) BASOPHILS ABSOLUTE COUNT (BEAKER) (test 0.03 K/ L 0.01-0.08 oxhq=359) IMMATURE GRANULOCYTES-RELATIVE PERCENT (BEAKER) 1 % 0-1 (test hjuy=9335) BLOOD GAS, [id number] 23:13:00 Test Item Value Reference Range Comments PH ARTERIAL (BEAKER) (test pyza=206) 7.38 7.35-7.45 PCO2 ARTERIAL (BEAKER) (test bggk=753) 37 mmHg 35-45 PO2 ARTERIAL (BEAKER) (test cvgm=369) 165 mmHg 80-90 O2 SATURATION ARTERIAL (BEAKER) (test inuu=898) 99.1 % 96.0-97.0 HCO3 ARTERIAL (BEAKER) (test opqg=504) 21 mmol/L 21-29 BASE EXCESS ARTERIAL (BEAKER) (test zham=397) -3.2 mmol/L -2.0-3.0 PATIENT TEMPERATURE (BEAKER) (test tafn=4194) 37.2 C FIO2 (BEAKER) (test dohd=9544) 36.0 % GLUCOSE-STAT [id number] 23:13:00 Test Item Value Reference Range Comments GLUCOSE RANDOM (BEAKER) (test srvk=506) 172 mg/dL 70-110 HGB/HCT (H&H) - STAT [id number] 23:13:00 Test Item Value Reference Range Comments HEMOGLOBIN (BEAKER) (test sezl=576) 9.1 g/dL 13.0-16.8 HEMATOCRIT (BEAKER) (test cqpx=224) 27.0 % 40.0-50.0 SODIUM NA-STAT [id number] 23:09:00 Test Item Value Reference Range Comments SODIUM (BEAKER) (test syef=290) 136 meq/L 135-148 POTASSIUM-STAT [id number] 23:09:00 Test Item Value Reference Range Comments POTASSIUM (BEAKER) (test iptj=692) 5.0 meq/L 3.6-5.5 RAD, CHEST, 1 VIEW, NON [id number] 22:57:00while patient is intubated or has chest [...] present. Impression: Satisfactory postoperative chest. Signed: Tylor Griffith Verified Date/Time: 2018 22:57:32 Reading Location: [facility] C013W Consult Reading Room [id number] 22:51:00 Test Item Value Reference Range Comments ACTIVATED CLOTTING TIME 120 sec TESTED AT [place] [address] [address] (BEAKER) (test icxa=812) [place] [address] [id number] 22:51:00 Test Item Value Reference Range Comments ACTIVATED CLOTTING TIME 521 sec TESTED AT [place] [address] [address] (BEAKER) (test mcep=091) [place] [address] [id number] 22:51:00 Test Item Value Reference Range Comments ACTIVATED CLOTTING TIME 527 sec TESTED AT [place] [address] [address] (BEAKER) (test pter=005) [place] [address] [id number] 22:51:00 Test Item Value Reference Range Comments ACTIVATED CLOTTING TIME 483 sec TESTED AT [place] [address] [address] (BEAKER) (test lxrh=554) [place] [address] [id number] 22:51:00 Test Item Value Reference Range Comments ACTIVATED CLOTTING TIME 483 sec TESTED AT [place] [address] [address] (BEAKER) (test crue=212) [place] [address] [id number] 22:51:00 Test Item Value Reference Range Comments ACTIVATED CLOTTING TIME 698 sec TESTED AT [place] [address] [address] (BEAKER) (test rbsm=741) [place] [address] [id number] 22:51:00 Test Item Value Reference Range Comments ACTIVATED CLOTTING TIME 439 sec TESTED AT [place] [address] [address] (BEAKER) (test ulip=069) [place] [address] BLOOD GAS, [id number] 21:49:00 Test Item Value Reference Range Comments PH ARTERIAL (BEAKER) (test hcyr=310) 7.41 7.35-7.45 PCO2 ARTERIAL (BEAKER) (test mwhn=126) 36 mmHg 35-45 PO2 ARTERIAL (BEAKER) (test pkiu=886) 157 mmHg 80-90 O2 SATURATION ARTERIAL (BEAKER) (test ifjc=660) 99.1 % 96.0-97.0 HCO3 ARTERIAL (BEAKER) (test qqjx=150) 22 mmol/L 21-29 BASE EXCESS ARTERIAL (BEAKER) (test lsal=400) -2.1 mmol/L -2.0-3.0 PATIENT TEMPERATURE (BEAKER) (test zmjn=1555) 36.7 C FIO2 (BEAKER) (test luvo=2478) 40.0 % CALCIUM, [id number] 19:50:00 Test Item Value Reference Range Comments CALCIUM IONIZED (BEAKER) (test dfrs=760) 1.11 mmol/L 1.12-1.27 PH, BLOOD (BEAKER) (test ertj=9451) 7.51 HGB/HCT (H&H) - STAT [id number] 19:50:00 Test Item Value Reference Range Comments HEMOGLOBIN (BEAKER) (test lfqi=597) 9.3 g/dL 13.0-16.8 HEMATOCRIT (BEAKER) (test yasz=938) 27.0 % 40.0-50.0 THROMBOELASTOGRAPH (TEG)2018-12-05 18:56:00 Test Item Value Reference Range Comments TEG ACTIVATED CLOTTING TIME (BEAKER) (test 13.0 minutes 4.0-7.0 obox=4560) TEG FIBRINOGEN ACTIVITY (BEAKER) (test 55.7 degrees 61.0-73.0 tejk=0704) TEG PLT. AGGREGATION (BEAKER) (test lbom=3859) 57.3 MM 55.0-65.0 TEG FIBRINOLYSIS (BEAKER) (test lgzo=8855) 0.0 % 0.0-5.0 TGH ACTIVATED CLOTTING TIME (BEAKER) (test 7.2 minutes 4.0-7.0 ccbl=5013) T[facility] FIBRINOGEN ACTIVITY (BEAKER) (test 71.5 degrees 61.0-73.0 jwkd=8195) T[facility] PLT. AGGREGATION (BEAKER) (test dumv=4869) 56.9 MM 55.0-65.0 T[facility] FIBRINOLYSIS (BEAKER) (test ansy=1069) 0.0 % 0.0-5.0 [id number] 17:58:00 Test Item Value Reference Range Comments PROTIME (BEAKER) (test tawf=643) 16.5 seconds 11.7-14.7 INR (BEAKER) (test fyic=082) 1.3 <=5.9 PARTIAL THROMBOPLASTIN TIME (BEAKER) (test 44.1 seconds 22.5-36.0 iexb=289) RECOMMENDED COUMADIN/WARFARIN INR THERAPY RANGESSTANDARD DOSE: 2.0 - 3.0 Includes: PROPHYLAXIS forvenous thrombosis, systemic embolization; TREATMENT for venous thrombosis and/or pulmonary embolus.HIGH RISK: Target INR is 2.5-3.5 for patients with mechanical heart valves.PROTHROMBIN [id number] 17:57: 00 Test Item Value Reference Range Comments PROTIME (BEAKER) (test nbqt=866) 16.5 seconds 11.7-14.7 INR (BEAKER) (test grlc=493) 1.3 <=5.9 RECOMMENDED COUMADIN/WARFARIN INR THERAPY RANGESSTANDARD DOSE: 2.0 - 3.0 Includes: PROPHYLAXIS forvenous thrombosis, systemic embolization; TREATMENT for venous thrombosis and/or pulmonary embolus.HIGH RISK: Target INR is 2.5-3.5 for patients with mechanical heart valves.[id number] 17:57:00 Test Item Value Reference Range Comments FIBRINOGEN LEVEL (BEAKER) (test akyp=007) 347 mg/dl 225-434 [id number] 17:27:00 Test Item Value Reference Range Comments PHOSPHORUS (BEAKER) (test jbtp=524) 3.3 mg/dL 2.3-4.7 [id number] 17:27:00 Test Item Value Reference Range Comments MAGNESIUM (BEAKER) (test monh=539) 2.6 mg/dL 1.6-2.6 BASIC METABOLIC [id number] 17:27:00 Test Item Value Reference Range Comments SODIUM (BEAKER) (test 141 meq/L 136-145 pkij=754) POTASSIUM (BEAKER) (test 4.1 meq/L 3.5-5.1 ywkn=482) CHLORIDE (BEAKER) (test 111 meq/L 98-107 ggfl=475) CO2 (BEAKER) (test 22 meq/L 22-29 vfls=872) BLOOD UREA NITROGEN 20 mg/dL 7-21 (BEAKER) (test togf=641) CREATININE (BEAKER) (test 1.55 mg/dL 0.57-1.25 gzel=153) GLUCOSE RANDOM (BEAKER) 140 mg/dL 70-105 (test oert=461) CALCIUM (BEAKER) (test 9.1 mg/dL 8.4-10.2 ittw=314) EGFR (BEAKER) (test 45 mL/min/1.73 sq m ESTIMATED GFR IS NOT eafm=4999) ACCURATE CREATININE CLEARANCE IN PREDICTING GLOMERULAR FILTRATION RATE. ESTIMATED GFR IS NOT APPLICABLE FOR DIALYSIS PATIENTS. LACTIC ACID, [id number] 17:21:00 Test Item Value Reference Range Comments LACTATE BLOOD ARTERIAL (2) (BEAKER) (test 1.9 mmol/L 0.5-2.2 vaky=5482) OXYGEN SATURATION, [id number] 17:10:00 Test Item Value Reference Range Comments O2 SATURATION (MEASURED) (BEAKER) (test jcxe=4952) 81.3 % CBC W/PLT COUNT & AUTO [id number] 17:07:00 Test Item Value Reference Range Comments WHITE BLOOD CELL COUNT (BEAKER) (test pbqp=168) 12.6 K/ L 3.5-10.5 RED BLOOD CELL COUNT (BEAKER) (test ypmq=420) 2.99 M/ L 4.63-6.08 HEMOGLOBIN (BEAKER) (test vnvp=419) 9.8 GM/DL 13.7-17.5 HEMATOCRIT (BEAKER) (test ioaw=114) 29.4 % 40.1-51.0 MEAN CORPUSCULAR VOLUME (BEAKER) (test kphv=069) 98.3 fL 79.0-92.2 MEAN CORPUSCULAR HEMOGLOBIN (BEAKER) (test 32.8 pg 25.7-32.2 cotz=782) MEAN CORPUSCULAR HEMOGLOBIN CONC (BEAKER) (test 33.3 GM/DL 32.3-36.5 spog=736) RED CELL DISTRIBUTION WIDTH (BEAKER) (test 13.3 % 11.6-14.4 neyc=675) PLATELET COUNT (BEAKER) (test ckdh=519) 143 K/CU MM 150-450 MEAN PLATELET VOLUME (BEAKER) (test tyoe=846) 11.2 fL 9.4-12.4 NUCLEATED RED BLOOD CELLS (BEAKER) (test 0 /100 WBC 0-0 qumx=161) NEUTROPHILS RELATIVE PERCENT (BEAKER) (test 85 % boif=378) LYMPHOCYTES RELATIVE PERCENT (BEAKER) (test 7 % zswi=918) MONOCYTES RELATIVE PERCENT (BEAKER) (test 6 % kqvh=988) EOSINOPHILS RELATIVE PERCENT (BEAKER) (test 0 % bbys=045) BASOPHILS RELATIVE PERCENT (BEAKER) (test 0 % rtmx=200) NEUTROPHILS ABSOLUTE COUNT (BEAKER) (test 10.74 K/ L 1.78-5.38 zjri=865) LYMPHOCYTES ABSOLUTE COUNT (BEAKER) (test 0.93 K/ L 1.32-3.57 hfnn=060) MONOCYTES ABSOLUTE COUNT (BEAKER) (test 0.81 K/ L 0.30-0.82 bqik=731) EOSINOPHILS ABSOLUTE COUNT (BEAKER) (test 0.05 K/ L 0.04-0.54 jedu=737) BASOPHILS ABSOLUTE COUNT (BEAKER) (test 0.05 K/ L 0.01-0.08 anob=371) IMMATURE GRANULOCYTES-RELATIVE PERCENT (BEAKER) 0 % 0-1 (test ncqb=9308) SODIUM NA-STAT [id number] 17:05:00 Test Item Value Reference Range Comments SODIUM (BEAKER) (test ynpz=552) 138 meq/L 135-148 POTASSIUM-STAT [id number] 17:05:00 Test Item Value Reference Range Comments POTASSIUM (BEAKER) (test nkpm=872) 3.9 meq/L 3.6-5.5 BLOOD GAS, [id number] 17:05:00 Test Item Value Reference Range Comments PH ARTERIAL (BEAKER) (test vpjp=487) 7.44 7.35-7.45 PCO2 ARTERIAL (BEAKER) (test atht=996) 35 mmHg 35-45 PO2 ARTERIAL (BEAKER) (test dlko=269) 294 mmHg 80-90 O2 SATURATION ARTERIAL (BEAKER) (test dlel=151) 99.7 % 96.0-97.0 HCO3 ARTERIAL (BEAKER) (test ljmy=633) 23 mmol/L 21-29 BASE EXCESS ARTERIAL (BEAKER) (test wogn=883) -1.3 mmol/L -2.0-3.0 PATIENT TEMPERATURE (BEAKER) (test lvsf=4192) 34.6 C FIO2 (BEAKER) (test feao=3284) 80.0 % GLUCOSE-STAT [id number] 17:05:00 Test Item Value Reference Range Comments GLUCOSE RANDOM (BEAKER) (test lign=041) 140 mg/dL 70-110 HGB/HCT (H&H) - STAT [id number] 17:05:00 Test Item Value Reference Range Comments HEMOGLOBIN (BEAKER) (test txhe=921) 10.1 g/dL 13.0-16.8 HEMATOCRIT (BEAKER) (test ipww=270) 30.0 % 40.0-50.0 THROMBOELASTOGRAPH (TEG)2018-12-05 15:43:00 Test Item Value Reference Range Comments TEG ACTIVATED CLOTTING TIME (BEAKER) (test 4.8 minutes 4.0-7.0 fdqk=5032) TEG FIBRINOGEN ACTIVITY (BEAKER) (test 73.0 degrees 61.0-73.0 fcqb=8294) TEG PLT. AGGREGATION (BEAKER) (test lpie=2535) 63.4 MM 55.0-65.0 TGH ACTIVATED CLOTTING TIME (BEAKER) (test 4.9 minutes 4.0-7.0 mvby=2485) TGH FIBRINOGEN ACTIVITY (BEAKER) (test 73.1 degrees 61.0-73.0 iwng=2725) TGH PLT. AGGREGATION (BEAKER) (test rybc=9491) 63.7 MM 55.0-65.0 [id number] 14:59:00 Test Item Value Reference Range Comments FIBRINOGEN LEVEL (BEAKER) (test rooq=449) 368 mg/dl 225-434 [id number] 14:59:00 Test Item Value Reference Range Comments PROTIME (BEAKER) (test idzs=457) 17.1 seconds 11.7-14.7 INR (BEAKER) (test awmf=698) 1.4 <=5.9 PARTIAL THROMBOPLASTIN TIME (BEAKER) (test 27.8 seconds 22.5-36.0 difw=912) RECOMMENDED COUMADIN/WARFARIN INR THERAPY RANGESSTANDARD DOSE: 2.0 - 3.0 Includes: PROPHYLAXIS forvenous thrombosis, systemic embolization; TREATMENT for venous thrombosis and/or pulmonary embolus.HIGH RISK: Target INR is 2.5-3.5 for patients with mechanical heart valves.CBC (HEMOGRAM ONLY)2018-12-05 14:51:00 Test Item Value Reference Range Comments WHITE BLOOD CELL COUNT (BEAKER) (test djzj=705) 15.7 K/ L 3.5-10.5 RED BLOOD CELL COUNT (BEAKER) (test dgbk=453) 3.11 M/ L 4.63-6.08 HEMOGLOBIN (BEAKER) (test idbl=005) 10.0 GM/DL 13.7-17.5 HEMATOCRIT (BEAKER) (test vnzn=010) 30.7 % 40.1-51.0 MEAN CORPUSCULAR VOLUME (BEAKER) (test gljs=363) 98.7 fL 79.0-92.2 MEAN CORPUSCULAR HEMOGLOBIN (BEAKER) (test 32.2 pg 25.7-32.2 flcu=453) MEAN CORPUSCULAR HEMOGLOBIN CONC (BEAKER) (test 32.6 GM/DL 32.3-36.5 xeyz=352) RED CELL DISTRIBUTION WIDTH (BEAKER) (test 13.2 % 11.6-14.4 guli=346) PLATELET COUNT (BEAKER) (test ugdr=041) 111 K/CU MM 150-450 MEAN PLATELET VOLUME (BEAKER) (test hztg=950) 11.8 fL 9.4-12.4 NUCLEATED RED BLOOD CELLS (BEAKER) (test 0 /100 WBC 0-0 rjqy=460) BLOOD GAS, [id number] 14:15:00 Test Item Value Reference Range Comments PH ARTERIAL (BEAKER) (test ythl=598) 7.37 7.35-7.45 PCO2 ARTERIAL (BEAKER) (test wevy=986) 45 mmHg 35-45 PO2 ARTERIAL (BEAKER) (test ljmt=696) 196 mmHg 80-90 O2 SATURATION ARTERIAL (BEAKER) (test xugl=390) 99.3 % 96.0-97.0 HCO3 ARTERIAL (BEAKER) (test idfk=569) 26 mmol/L 21-29 BASE EXCESS ARTERIAL (BEAKER) (test iogh=355) 0.1 mmol/L -2.0-3.0 PATIENT TEMPERATURE (BEAKER) (test wqfl=5181) 35.8 C FIO2 (BEAKER) (test lzxe=3157) 95.0 % GLUCOSE-STAT [id number] 14:15:00 Test Item Value Reference Range Comments GLUCOSE RANDOM (BEAKER) (test svoq=713) 196 mg/dL 70-110 HGB/HCT (H&H) - STAT [id number] 14:15:00 Test Item Value Reference Range Comments HEMOGLOBIN (BEAKER) (test hofi=511) 9.9 g/dL 13.0-16.8 HEMATOCRIT (BEAKER) (test niis=544) 29.0 % 40.0-50.0 SODIUM NA-STAT [id number] 14:13:00 Test Item Value Reference Range Comments SODIUM (BEAKER) (test citb=343) 136 meq/L 135-148 POTASSIUM-STAT [id number] 14:13:00 Test Item Value Reference Range Comments POTASSIUM (BEAKER) (test lvsf=771) 4.9 meq/L 3.6-5.5 BLOOD GAS, [id number] 13:59:00 Test Item Value Reference Range Comments PH ARTERIAL (BEAKER) (test vgcz=755) 7.38 7.35-7.45 PCO2 ARTERIAL (BEAKER) (test dyfe=756) 45 mmHg 35-45 PO2 ARTERIAL (BEAKER) (test nwft=202) 317 mmHg 80-90 O2 SATURATION ARTERIAL (BEAKER) (test bpxe=371) 99.7 % 96.0-97.0 HCO3 ARTERIAL (BEAKER) (test vtek=519) 26 mmol/L 21-29 BASE EXCESS ARTERIAL (BEAKER) (test dino=168) 0.8 mmol/L -2.0-3.0 PATIENT TEMPERATURE (BEAKER) (test pjpp=4945) 36.7 C FIO2 (BEAKER) (test coks=9891) 90.0 % POTASSIUM-STAT [id number] 13:59:00 Test Item Value Reference Range Comments POTASSIUM (BEAKER) (test fhlp=811) 5.7 meq/L 3.6-5.5 GLUCOSE-STAT [id number] 13:59:00 Test Item Value Reference Range Comments GLUCOSE RANDOM (BEAKER) (test rrgc=822) 221 mg/dL 70-110 HGB/HCT (H&H) - STAT [id number] 13:59:00 Test Item Value Reference Range Comments HEMOGLOBIN (BEAKER) (test rnfr=599) 10.2 g/dL 13.0-16.8 HEMATOCRIT (BEAKER) (test kzke=302) 30.0 % 40.0-50.0 SODIUM NA-STAT [id number] 13:44:00 Test Item Value Reference Range Comments SODIUM (BEAKER) (test kgtj=313) 135 meq/L 135-148 BLOOD GAS, [id number] 13:11:00 Test Item Value Reference Range Comments PH ARTERIAL (BEAKER) (test kdhu=856) 7.41 7.35-7.45 PCO2 ARTERIAL (BEAKER) (test lors=816) 37 mmHg 35-45 PO2 ARTERIAL (BEAKER) (test vfgw=397) 310 mmHg 80-90 O2 SATURATION ARTERIAL (BEAKER) (test tlez=473) 99.7 % 96.0-97.0 HCO3 ARTERIAL (BEAKER) (test togz=759) 24 mmol/L 21-29 BASE EXCESS ARTERIAL (BEAKER) (test dyxv=602) -1.5 mmol/L -2.0-3.0 PATIENT TEMPERATURE (BEAKER) (test szzo=1195) 32.7 C FIO2 (BEAKER) (test wkqr=6766) 70.0 % GLUCOSE-STAT [id number] 13:11:00 Test Item Value Reference Range Comments GLUCOSE RANDOM (BEAKER) (test dbve=746) 218 mg/dL 70-110 HGB/HCT (H&H) - STAT [id number] 13:11:00 Test Item Value Reference Range Comments HEMOGLOBIN (BEAKER) (test xgai=616) 9.9 g/dL 13.0-16.8 HEMATOCRIT (BEAKER) (test ilwb=620) 29.0 % 40.0-50.0 SODIUM NA-STAT [id number] 13:09:00 Test Item Value Reference Range Comments SODIUM (BEAKER) (test birq=605) 135 meq/L 135-148 POTASSIUM-STAT [id number] 13:09:00 Test Item Value Reference Range Comments POTASSIUM (BEAKER) (test qdnl=564) 5.3 meq/L 3.6-5.5 BLOOD GAS, [id number] 12:50:00 Test Item Value Reference Range Comments PH ARTERIAL (BEAKER) (test jmqx=014) 7.44 7.35-7.45 PCO2 ARTERIAL (BEAKER) (test kazm=354) 36 mmHg 35-45 PO2 ARTERIAL (BEAKER) (test csjd=421) 278 mmHg 80-90 O2 SATURATION ARTERIAL (BEAKER) (test oyiw=759) 99.7 % 96.0-97.0 HCO3 ARTERIAL (BEAKER) (test jnsa=892) 25 mmol/L 21-29 BASE EXCESS ARTERIAL (BEAKER) (test lvqo=756) -0.7 mmol/L -2.0-3.0 PATIENT TEMPERATURE (BEAKER) (test fmhk=7528) 30.2 C FIO2 (BEAKER) (test oeqy=2907) 65.0 % GLUCOSE-STAT [id number] 12:50:00 Test Item Value Reference Range Comments GLUCOSE RANDOM (BEAKER) (test oshe=712) 208 mg/dL 70-110 HGB/HCT (H&H) - STAT [id number] 12:50:00 Test Item Value Reference Range Comments HEMOGLOBIN (BEAKER) (test eqie=574) 9.7 g/dL 13.0-16.8 HEMATOCRIT (BEAKER) (test cajw=142) 29.0 % 40.0-50.0 SODIUM NA-STAT [id number] 12:49:00 Test Item Value Reference Range Comments SODIUM (BEAKER) (test ddbg=741) 135 meq/L 135-148 POTASSIUM-STAT [id number] 12:49:00 Test Item Value Reference Range Comments POTASSIUM (BEAKER) (test kzds=368) 5.1 meq/L 3.6-5.5 BLOOD GAS, [id number] 12:23:00 Test Item Value Reference Range Comments PH ARTERIAL (BEAKER) (test kelq=572) 7.47 7.35-7.45 PCO2 ARTERIAL (BEAKER) (test ijnk=468) 33 mmHg 35-45 PO2 ARTERIAL (BEAKER) (test mynp=891) 390 mmHg 80-90 O2 SATURATION ARTERIAL (BEAKER) (test ccll=825) 99.8 % 96.0-97.0 HCO3 ARTERIAL (BEAKER) (test ofcx=490) 26 mmol/L 21-29 BASE EXCESS ARTERIAL (BEAKER) (test qtaf=743) 0.3 mmol/L -2.0-3.0 PATIENT TEMPERATURE (BEAKER) (test qxro=8617) 30.3 C FIO2 (BEAKER) (test cplf=9525) 80.0 % GLUCOSE-STAT [id number] 12:23:00 Test Item Value Reference Range Comments GLUCOSE RANDOM (BEAKER) (test javr=962) 183 mg/dL 70-110 HGB/HCT (H&H) - STAT [id number] 12:23:00 Test Item Value Reference Range Comments HEMOGLOBIN (BEAKER) (test bbzr=587) 9.7 g/dL 13.0-16.8 HEMATOCRIT (BEAKER) (test hzuy=045) 29.0 % 40.0-50.0 SODIUM NA-STAT [id number] 12:22:00 Test Item Value Reference Range Comments SODIUM (BEAKER) (test uaka=153) 135 meq/L 135-148 POTASSIUM-STAT [id number] 12:22:00 Test Item Value Reference Range Comments POTASSIUM (BEAKER) (test avle=805) 4.7 meq/L 3.6-5.5 SODIUM NA-STAT [id number] 11:58:00 Test Item Value Reference Range Comments SODIUM (BEAKER) (test gttc=770) 136 meq/L 135-148 POTASSIUM-STAT [id number] 11:58:00 Test Item Value Reference Range Comments POTASSIUM (BEAKER) (test ukox=884) 4.1 meq/L 3.6-5.5 BLOOD GAS, [id number] 11:58:00 Test Item Value Reference Range Comments PH ARTERIAL (BEAKER) (test vhig=413) 7.45 7.35-7.45 PCO2 ARTERIAL (BEAKER) (test zfwk=092) 37 mmHg 35-45 PO2 ARTERIAL (BEAKER) (test xgso=522) 523 mmHg 80-90 O2 SATURATION ARTERIAL (BEAKER) (test rtnn=967) 99.9 % 96.0-97.0 HCO3 ARTERIAL (BEAKER) (test sisg=182) 26 mmol/L 21-29 BASE EXCESS ARTERIAL (BEAKER) (test mkdv=617) 0.9 mmol/L -2.0-3.0 PATIENT TEMPERATURE (BEAKER) (test rmza=4936) 33.6 C FIO2 (BEAKER) (test yizh=4698) 100.0 % GLUCOSE-STAT [id number] 11:58:00 Test Item Value Reference Range Comments GLUCOSE RANDOM (BEAKER) (test ygua=182) 143 mg/dL 70-110 HGB/HCT (H&H) - STAT [id number] 11:58:00 Test Item Value Reference Range Comments HEMOGLOBIN (BEAKER) (test mnyy=722) 10.9 g/dL 13.0-16.8 HEMATOCRIT (BEAKER) (test tbcx=169) 32.0 % 40.0-50.0 BLOOD GAS, [id number] 11:57:00 Test Item Value Reference Range Comments PH VENOUS (BEAKER) (test owhy=685) 7.42 7.32-7.42 PCO2 VENOUS (BEAKER) (test yhfo=190) 39 mmHg 41-51 PO2 VENOUS (BEAKER) (test zoxy=899) 63 mmHg 25-40 O2 SATURATION VENOUS (BEAKER) (test ilts=305) 95.3 % 40.0-70.0 HCO3 VENOUS (BEAKER) (test rdly=805) 26 mmol/L 21-29 BASE EXCESS VENOUS (BEAKER) (test arcp=437) 0.0 mmol/L -2.0-3.0 PATIENT TEMPERATURE (BEAKER) (test qkga=2151) 33.6 C FIO2 (BEAKER) (test ueey=2357) 100.0 % HEMOGLOBIN [id number] 10:26:00 Test Item Value Reference Range Comments HEMOGLOBIN A1C (BEAKER) (test ndgr=525) 5.2 % 4.3-6.1 PLATELET AGGREGATION: FUNCTION [id number] 09:03:00 Test Item Value Reference Range Comments WEAK ADP RESULT(BEAKER) (test 55 % 60-91 auhq=7784) PLATELET FUNCTION SCREEN 50-59% indicates mild platelet INTERP (BEAKER) (test dysfunction kctn=8248) [id number] Sam Ramírez MD (electronic (BEAKER) (test lief=6924) signature) PLATELET COUNT AGG (BEAKER) 169 K/CU MM 150-450 (test pjyp=8531) Platelet Function Screen results may be falsely low with platelet counts<100, 000/cu mm.BLOOD GAS, [id number] 08:53:00 Test Item Value Reference Range Comments PH ARTERIAL (BEAKER) (test dsqy=520) 7.49 7.35-7.45 PCO2 ARTERIAL (BEAKER) (test dmix=651) 31 mmHg 35-45 PO2 ARTERIAL (BEAKER) (test adwk=943) 356 mmHg 80-90 O2 SATURATION ARTERIAL (BEAKER) (test ugvc=207) 99.8 % 96.0-97.0 HCO3 ARTERIAL (BEAKER) (test ujhm=580) 23 mmol/L 21-29 BASE EXCESS ARTERIAL (BEAKER) (test dkjf=677) 0.2 mmol/L -2.0-3.0 PATIENT TEMPERATURE (BEAKER) (test bfdu=2077) 36.2 C FIO2 (BEAKER) (test rgic=5011) 100.0 % HGB/HCT (H&H) - STAT [id number] 08:53:00 Test Item Value Reference Range Comments HEMOGLOBIN (BEAKER) (test vqai=520) 12.7 g/dL 13.0-16.8 HEMATOCRIT (BEAKER) (test ihmb=051) 37.0 % 40.0-50.0 CALCIUM, [id number] 08:53:00 Test Item Value Reference Range Comments CALCIUM IONIZED (BEAKER) (test qtud=700) 1.05 mmol/L 1.12-1.27 PH, BLOOD (BEAKER) (test xjoi=3982) 7.48 GLUCOSE-STAT [id number] 08:51:00 Test Item Value Reference Range Comments GLUCOSE RANDOM (BEAKER) (test ilju=877) 102 mg/dL 70-110 SODIUM NA-STAT [id number] 08:51:00 Test Item Value Reference Range Comments SODIUM (BEAKER) (test qnis=889) 138 meq/L 135-148 POTASSIUM-STAT [id number] 08:51:00 Test Item Value Reference Range Comments POTASSIUM (BEAKER) (test ctnb=451) 4.1 meq/L 3.6-5.5 URINALYSIS W/ [id number] 05:26:00 Test Item Value Reference Range Comments COLOR (BEAKER) (test yzbm=369) Yellow CLARITY (BEAKER) (test egfe=432) Clear SPECIFIC GRAVITY UA (BEAKER) (test kbtp=935) 1.008 1.001-1.035 PH UA (BEAKER) (test xxwf=726) 7.5 5.0-8.0 PROTEIN UA (BEAKER) (test gvxn=445) 10 mg/dL Negative GLUCOSE UA (BEAKER) (test sgeu=934) Negative Negative KETONES UA (BEAKER) (test bore=117) Negative Negative BILIRUBIN UA (BEAKER) (test uicd=337) Negative Negative BLOOD UA (BEAKER) (test cazf=823) Negative Negative NITRITE UA (BEAKER) (test jbzq=439) Negative Negative LEUKOCYTE ESTERASE UA (BEAKER) (test oyio=152) Negative Negative UROBILINOGEN UA (BEAKER) (test rxei=349) 2.0 mg/dL 0.2-1.0 RBC UA (BEAKER) (test riok=441) < /HPF WBC UA (BEAKER) (test rizb=882) 0 /HPF MUCUS (BEAKER) (test tnsh=6090) Rare AMORPHOUS CRYSTALS (BEAKER) (test tpcq=4306) Rare SOURCE(BEAKER) (test gabl=1206) Urine, Voided VITAMIN D, [id number] 05:01:00 Test Item Value Reference Range Comments VITAMIN D 25-OH (BEAKER) (test vpoq=3489) 24.8 ng/mL 6.6-49.9 Effective 06/19/2017: Reference Range ChangeNew: 6.6-49.9 ng/mL Previous: 13.0 -47.8 ng/mLRecommended Vitamin D Target Range: 30.0-40.0 ng/mLCREATININE, RANDOM [id number] 04:55:00 Test Item Value Reference Range Comments CREATININE URINE (BEAKER) (test eogo=523) 68.3 mg/dL Reference Range: No NormalsPROTEIN, RANDOM [id number] 04:55:00 Test Item Value Reference Range Comments PROTEIN, URINE (BEAKER) (test uetg=9291) 19 mg/dL 0-14 PTH, [id number] 04:44:00 Test Item Value Reference Range Comments PARATHYROID HORMONE INTACT (BEAKER) (test 69.0 pg/mL 8.5-72.5 xslc=672) BASIC METABOLIC [id number] 04:41:00 Test Item Value Reference Range Comments SODIUM (BEAKER) (test 140 meq/L 136-145 qjln=602) POTASSIUM (BEAKER) (test 4.0 meq/L 3.5-5.1 ywnw=204) CHLORIDE (BEAKER) (test 108 meq/L 98-107 kvuw=845) CO2 (BEAKER) (test 23 meq/L 22-29 hxgf=182) BLOOD UREA NITROGEN 19 mg/dL 7-21 (BEAKER) (test dxfu=919) CREATININE (BEAKER) (test 1.65 mg/dL 0.57-1.25 wtwa=794) GLUCOSE RANDOM (BEAKER) 105 mg/dL 70-105 (test ctpl=795) CALCIUM (BEAKER) (test 9.3 mg/dL 8.4-10.2 yxhw=060) EGFR (BEAKER) (test 42 mL/min/1.73 sq m ESTIMATED GFR IS NOT bdtg=2599) ACCURATE CREATININE CLEARANCE IN PREDICTING GLOMERULAR FILTRATION RATE. ESTIMATED GFR IS NOT APPLICABLE FOR DIALYSIS PATIENTS. CBC (HEMOGRAM ONLY)2018-12-05 04:24:00 Test Item Value Reference Range Comments WHITE BLOOD CELL COUNT (BEAKER) (test isbo=443) 7.4 K/ L 3.5-10.5 RED BLOOD CELL COUNT (BEAKER) (test nntm=271) 3.87 M/ L 4.63-6.08 HEMOGLOBIN (BEAKER) (test rlhq=669) 12.4 GM/DL 13.7-17.5 HEMATOCRIT (BEAKER) (test gfai=589) 37.0 % 40.1-51.0 MEAN CORPUSCULAR VOLUME (BEAKER) (test qjry=343) 95.6 fL 79.0-92.2 MEAN CORPUSCULAR HEMOGLOBIN (BEAKER) (test 32.0 pg 25.7-32.2 qduu=352) MEAN CORPUSCULAR HEMOGLOBIN CONC (BEAKER) (test 33.5 GM/DL 32.3-36.5 zhdw=615) RED CELL DISTRIBUTION WIDTH (BEAKER) (test 13.2 % 11.6-14.4 vllx=859) PLATELET COUNT (BEAKER) (test npjx=061) 174 K/CU MM 150-450 MEAN PLATELET VOLUME (BEAKER) (test esiv=788) 11.8 fL 9.4-12.4 NUCLEATED RED BLOOD CELLS (BEAKER) (test 0 /100 WBC 0-0 mfck=717) RAD, CHEST, 1 VIEW, NON [id number] 20:09:00Reason for exam:->Pre Op (ACB ) ScreeninigShould [...] MDReport Verified Date/Time: 12/04/2018 20:09:09 Reading Location: [facility] C013V Neuro Reading Room [id number] 04:47:00 Test Item Value Reference Range Comments PARTIAL THROMBOPLASTIN TIME (BEAKER) (test 83.1 seconds 22.5-36.0 cgzr=499) [id number] 04:44:00 Test Item Value Reference Range Comments MAGNESIUM (BEAKER) (test 2.3 mg/dL 1.6-2.6 Specimen slightly hemolyzed zxdi=237) BASIC METABOLIC [id number] 04:44:00 Test Item Value Reference Range Comments SODIUM (BEAKER) (test 141 meq/L 136-145 adok=786) POTASSIUM (BEAKER) (test 4.0 meq/L 3.5-5.1 Specimen slightly arqj=726) hemolyzed CHLORIDE (BEAKER) (test 109 meq/L 98-107 ayrw=708) CO2 (BEAKER) (test 22 meq/L 22-29 yyiv=366) BLOOD UREA NITROGEN 24 mg/dL 7-21 (BEAKER) (test xsoz=731) CREATININE (BEAKER) (test 1.61 mg/dL 0.57-1.25 Specimen slightly brdh=725) hemolyzed GLUCOSE RANDOM (BEAKER) 98 mg/dL 70-105 (test ryrm=486) CALCIUM (BEAKER) (test 9.3 mg/dL 8.4-10.2 utya=372) EGFR (BEAKER) (test 43 mL/min/1.73 sq m ESTIMATED GFR IS NOT qwnm=2703) ACCURATE CREATININE CLEARANCE IN PREDICTING GLOMERULAR FILTRATION RATE. ESTIMATED GFR IS NOT APPLICABLE FOR DIALYSIS PATIENTS. CBC (HEMOGRAM ONLY)2018-12-04 04:28:00 Test Item Value Reference Range Comments WHITE BLOOD CELL COUNT (BEAKER) (test igsa=143) 7.6 K/ L 3.5-10.5 RED BLOOD CELL COUNT (BEAKER) (test vkgw=136) 3.88 M/ L 4.63-6.08 HEMOGLOBIN (BEAKER) (test tavn=151) 12.3 GM/DL 13.7-17.5 HEMATOCRIT (BEAKER) (test hiqb=443) 37.6 % 40.1-51.0 MEAN CORPUSCULAR VOLUME (BEAKER) (test xdqv=547) 96.9 fL 79.0-92.2 MEAN CORPUSCULAR HEMOGLOBIN (BEAKER) (test 31.7 pg 25.7-32.2 pwkg=439) MEAN CORPUSCULAR HEMOGLOBIN CONC (BEAKER) (test 32.7 GM/DL 32.3-36.5 jsno=483) RED CELL DISTRIBUTION WIDTH (BEAKER) (test 13.3 % 11.6-14.4 vgzv=910) PLATELET COUNT (BEAKER) (test rmld=863) 158 K/CU MM 150-450 MEAN PLATELET VOLUME (BEAKER) (test yfzh=235) 11.6 fL 9.4-12.4 NUCLEATED RED BLOOD CELLS (BEAKER) (test 0 /100 WBC 0-0 tghq=822) PLATELET AGGREGATION: DRUG [id number] 19:31:00 Test Item Value Reference Range Comments STRONG ADP RESULT(BEAKER) (test 67 % 70-94 ulie=0468) WEAK ADP RESULT(BEAKER) (test 65 % 60-91 pcaj=2823) ARACHADONIC ACID RESULT(BEAKER) 5 % 63-89 (test zzch=7231) PLATELET AGG DRUG INTERPRETATION Normal response to ADP (BEAKER) (test znww=7130) suggests a lack of Q1V91-jgkijblaf effect. PLATELET AGG DRUG INTERPRETATION Decreased response to (BEAKER) (test itai=990896) arachidonic acid suggests aspirin-like effect. [id number] (BEAKER) Sandi Ovalle MD (test znou=1411) (electronic signature) PLATELET COUNT AGG (BEAKER) 163 K/CU MM 150-450 (test owug=2659) Platelet aggregation results may be falsely low with platelet counts<100,000/ CU MM.[id number] 12:53:00 Test Item Value Reference Range Comments PARTIAL THROMBOPLASTIN TIME (BEAKER) (test 69.0 seconds 22.5-36.0 brns=191) BASIC METABOLIC [id number] 07:03:00 Test Item Value Reference Range Comments SODIUM (BEAKER) (test 140 meq/L 136-145 mmpx=611) POTASSIUM (BEAKER) (test 3.6 meq/L 3.5-5.1 Specimen slightly ccbh=940) hemolyzed CHLORIDE (BEAKER) (test 110 meq/L 98-107 txbg=662) CO2 (BEAKER) (test 21 meq/L 22-29 ygrb=042) BLOOD UREA NITROGEN 31 mg/dL 7-21 (BEAKER) (test ujpu=831) CREATININE (BEAKER) (test 1.54 mg/dL 0.57-1.25 Specimen slightly hhgi=960) hemolyzed GLUCOSE RANDOM (BEAKER) 90 mg/dL 70-105 (test ekjc=278) CALCIUM (BEAKER) (test 8.2 mg/dL 8.4-10.2 obzi=427) EGFR (BEAKER) (test 45 mL/min/1.73 sq m ESTIMATED GFR IS NOT wzfb=8534) ACCURATE CREATININE CLEARANCE IN PREDICTING GLOMERULAR FILTRATION RATE. ESTIMATED GFR IS NOT APPLICABLE FOR DIALYSIS PATIENTS. [id number] 06:52:00 Test Item Value Reference Range Comments PARTIAL THROMBOPLASTIN TIME (BEAKER) (test 65.5 seconds 22.5-36.0 ltgj=625) CBC (HEMOGRAM ONLY)2018-12-03 06:39:00 Test Item Value Reference Range Comments WHITE BLOOD CELL COUNT (BEAKER) (test tlqx=321) 8.5 K/ L 3.5-10.5 RED BLOOD CELL COUNT (BEAKER) (test acrd=232) 3.87 M/ L 4.63-6.08 HEMOGLOBIN (BEAKER) (test hdny=793) 12.1 GM/DL 13.7-17.5 HEMATOCRIT (BEAKER) (test hnae=817) 37.6 % 40.1-51.0 MEAN CORPUSCULAR VOLUME (BEAKER) (test zbnk=367) 97.2 fL 79.0-92.2 MEAN CORPUSCULAR HEMOGLOBIN (BEAKER) (test 31.3 pg 25.7-32.2 iuta=954) MEAN CORPUSCULAR HEMOGLOBIN CONC (BEAKER) (test 32.2 GM/DL 32.3-36.5 bspz=878) RED CELL DISTRIBUTION WIDTH (BEAKER) (test 13.4 % 11.6-14.4 ofwp=845) PLATELET COUNT (BEAKER) (test ajxb=164) 176 K/CU MM 150-450 MEAN PLATELET VOLUME (BEAKER) (test ynna=990) 12.2 fL 9.4-12.4 NUCLEATED RED BLOOD CELLS (BEAKER) (test 0 /100 WBC 0-0 oaxx=332) [id number] 00:34:00 Test Item Value Reference Range Comments PARTIAL THROMBOPLASTIN TIME (BEAKER) (test 56.8 seconds 22.5-36.0 qsej=713) [id number] 16:56:00 Test Item Value Reference Range Comments PARTIAL THROMBOPLASTIN TIME (BEAKER) (test 54.7 seconds 22.5-36.0 wgal=911) B-TYPE NATRIURETIC FACTOR (BNP)2018-12-02 09:39:00 Test Item Value Reference Range Comments B-TYPE NATRIURETIC PEPTIDE (BEAKER) (test 1056 pg/mL 0-100 gqzp=353) [id number] 09:17:00 Test Item Value Reference Range Comments PARTIAL THROMBOPLASTIN TIME (BEAKER) (test 39.8 seconds 22.5-36.0 eqpv=356) TROPONIN [id number] 04:45:00 Test Item Value Reference Range Comments TROPONIN I (BEAKER) (test nofs=687) 11.57 ng/mL 0.00-0.03 Troponin I (TnI) levels [...] acute neurological disease, and persistent tachyarrhythmia.BASIC METABOLIC [id number] 04:29:00 Test Item Value Reference Range Comments SODIUM (BEAKER) (test 138 meq/L 136-145 tihj=953) POTASSIUM (BEAKER) (test 3.9 meq/L 3.5-5.1 Specimen slightly iwfg=913) hemolyzed CHLORIDE (BEAKER) (test 108 meq/L 98-107 dhce=768) CO2 (BEAKER) (test 18 meq/L 22-29 beom=112) BLOOD UREA NITROGEN 39 mg/dL 7-21 (BEAKER) (test twsu=932) CREATININE (BEAKER) (test 1.90 mg/dL 0.57-1.25 Specimen slightly zlqo=217) hemolyzed GLUCOSE RANDOM (BEAKER) 85 mg/dL 70-105 (test raux=340) CALCIUM (BEAKER) (test 9.0 mg/dL 8.4-10.2 sejr=757) EGFR (BEAKER) (test 36 mL/min/1.73 sq m ESTIMATED GFR IS NOT qfll=8553) ACCURATE CREATININE CLEARANCE IN PREDICTING GLOMERULAR FILTRATION RATE. ESTIMATED GFR IS NOT APPLICABLE FOR DIALYSIS PATIENTS. LIPID [id number] 04:29:00 Test Item Value Reference Range Comments TRIGLYCERIDES (BEAKER) (test 137 mg/dL Specimen slightly hemolyzed begy=962) CHOLESTEROL (BEAKER) (test 174 mg/dL Specimen slightly hemolyzed xhte=605) HDL CHOLESTEROL (BEAKER) (test 34 mg/dL tsdl=617) LDL CHOLESTEROL CALCULATED 113 mg/dL (BEAKER) (test hipw=944) Triglyceride Reference Range: Low Risk <150 Borderline [...] Comments WHITE BLOOD CELL COUNT (BEAKER) (test ckzy=419) 11.4 K/ L 3.5-10.5 RED BLOOD CELL COUNT (BEAKER) (test sxke=099) 4.04 M/ L 4.63-6.08 HEMOGLOBIN (BEAKER) (test fqin=615) 12.6 GM/DL 13.7-17.5 HEMATOCRIT (BEAKER) (test cajr=590) 38.7 % 40.1-51.0 MEAN CORPUSCULAR VOLUME (BEAKER) (test xoqu=805) 95.8 fL 79.0-92.2 MEAN CORPUSCULAR HEMOGLOBIN (BEAKER) (test 31.2 pg 25.7-32.2 ugzp=362) MEAN CORPUSCULAR HEMOGLOBIN CONC (BEAKER) (test 32.6 GM/DL 32.3-36.5 kaje=335) RED CELL DISTRIBUTION WIDTH (BEAKER) (test 13.6 % 11.6-14.4 konu=249) PLATELET COUNT (BEAKER) (test mrud=110) 178 K/CU MM 150-450 MEAN PLATELET VOLUME (BEAKER) (test xrgh=616) 11.8 fL 9.4-12.4 NUCLEATED RED BLOOD CELLS (BEAKER) (test 0 /100 WBC 0-0 lbmc=629) [id number] 18:55:00 Test Item Value Reference Range Comments ACTIVATED CLOTTING TIME (BEAKER) 98 sec TESTED AT [facility] [address] [facility] (test mxeh=232) [facility] [address] COMPREHENSIVE METABOLIC [id number] 18:40:00 Test Item Value Reference Range Comments TOTAL PROTEIN (BEAKER) 6.7 gm/dL 6.0-8.3 (test chpi=489) ALBUMIN (BEAKER) (test 3.4 g/dL 3.5-5.0 wtvr=9270) ALKALINE PHOSPHATASE 59 U/L 40-150 (BEAKER) (test zytm=892) BILIRUBIN TOTAL (BEAKER) 1.1 mg/dL 0.2-1.2 (test sfzl=035) SODIUM (BEAKER) (test 141 meq/L 136-145 xmbg=263) POTASSIUM (BEAKER) (test 3.6 meq/L 3.5-5.1 lyzm=638) CHLORIDE (BEAKER) (test 105 meq/L 98-107 mqrd=710) CO2 (BEAKER) (test 26 meq/L 22-29 bmce=195) BLOOD UREA NITROGEN 40 mg/dL 7-21 (BEAKER) (test wbyn=014) CREATININE (BEAKER) (test 2.18 mg/dL 0.57-1.25 rrnv=508) GLUCOSE RANDOM (BEAKER) 92 mg/dL 70-105 (test fskc=066) CALCIUM (BEAKER) (test 9.3 mg/dL 8.4-10.2 srkz=556) AST (SGOT) (BEAKER) (test 16 U/L 5-34 vlqx=315) ALT (SGPT) (BEAKER) (test 11 U/L 6-55 uxuw=987) EGFR (BEAKER) (test 30 mL/min/1.73 sq m ESTIMATED GFR IS NOT cihh=9913) ACCURATE CREATININE CLEARANCE IN PREDICTING GLOMERULAR FILTRATION RATE. ESTIMATED GFR IS NOT APPLICABLE FOR DIALYSIS PATIENTS. [id number] 18:31:00 Test Item Value Reference Range Comments PROTIME (BEAKER) (test thkd=668) 14.6 seconds 11.7-14.7 INR (BEAKER) (test bbqi=635) 1.1 <=5.9 PARTIAL THROMBOPLASTIN TIME (BEAKER) (test 38.0 seconds 22.5-36.0 empg=206) RECOMMENDED COUMADIN/WARFARIN INR THERAPY RANGESSTANDARD DOSE: 2.0 - 3.0 Includes: PROPHYLAXIS forvenous thrombosis, systemic embolization; TREATMENT for venous thrombosis and/or pulmonary embolus.HIGH RISK: Target INR is 2.5-3.5 for patients with mechanical heart valves.PROTHROMBIN [id number] 18:30: 00 Test Item Value Reference Range Comments PROTIME (BEAKER) (test chqa=789) 14.6 seconds 11.7-14.7 INR (BEAKER) (test rypc=044) 1.1 <=5.9 RECOMMENDED COUMADIN/WARFARIN INR THERAPY RANGESSTANDARD DOSE: 2.0 - 3.0 Includes: PROPHYLAXIS forvenous thrombosis, systemic embolization; TREATMENT for venous thrombosis and/or pulmonary embolus.HIGH RISK: Target INR is 2.5-3.5 for patients with mechanical heart valves.CBC W/PLT COUNT & AUTO [id number] 18:27:00 Test Item Value Reference Range Comments WHITE BLOOD CELL COUNT (BEAKER) (test czgm=317) 13.1 K/ L 3.5-10.5 RED BLOOD CELL COUNT (BEAKER) (test ftwq=304) 3.93 M/ L 4.63-6.08 HEMOGLOBIN (BEAKER) (test ltud=182) 12.4 GM/DL 13.7-17.5 HEMATOCRIT (BEAKER) (test riuu=436) 37.3 % 40.1-51.0 MEAN CORPUSCULAR VOLUME (BEAKER) (test dbud=214) 94.9 fL 79.0-92.2 MEAN CORPUSCULAR HEMOGLOBIN (BEAKER) (test 31.6 pg 25.7-32.2 rnnc=498) MEAN CORPUSCULAR HEMOGLOBIN CONC (BEAKER) (test 33.2 GM/DL 32.3-36.5 dpdp=640) RED CELL DISTRIBUTION WIDTH (BEAKER) (test 13.6 % 11.6-14.4 ymjg=130) PLATELET COUNT (BEAKER) (test egir=427) 184 K/CU MM 150-450 MEAN PLATELET VOLUME (BEAKER) (test tybd=882) 11.6 fL 9.4-12.4 NUCLEATED RED BLOOD CELLS (BEAKER) (test 0 /100 WBC 0-0 kkvm=668) NEUTROPHILS RELATIVE PERCENT (BEAKER) (test 71 % njog=128) LYMPHOCYTES RELATIVE PERCENT (BEAKER) (test 19 % ydeb=601) MONOCYTES RELATIVE PERCENT (BEAKER) (test 9 % ssqh=118) EOSINOPHILS RELATIVE PERCENT (BEAKER) (test 0 % pwlf=036) BASOPHILS RELATIVE PERCENT (BEAKER) (test 0 % wabl=433) NEUTROPHILS ABSOLUTE COUNT (BEAKER) (test 9.31 K/ L 1.78-5.38 ellj=853) LYMPHOCYTES ABSOLUTE COUNT (BEAKER) (test 2.53 K/ L 1.32-3.57 qrtk=863) MONOCYTES ABSOLUTE COUNT (BEAKER) (test 1.12 K/ L 0.30-0.82 htuw=277) EOSINOPHILS ABSOLUTE COUNT (BEAKER) (test 0.04 K/ L 0.04-0.54 ypyx=767) BASOPHILS ABSOLUTE COUNT (BEAKER) (test 0.04 K/ L 0.01-0.08 jino=643) IMMATURE GRANULOCYTES-RELATIVE PERCENT (BEAKER) 1 % 0-1 (test eyqe=3785) [id number] 18:07:00 Test Item Value Reference Range Comments ACTIVATED CLOTTING TIME 136 sec TESTED AT [facility] [address] (BEAKER) (test yaju=799) [facility] [address]
--- NOTE | 2019-07-26 15:40 | RAD REPORT ---
EXAM DESCRIPTION: CT - Head Brain Wo Cont - 07/26/2019 3:21 pm CLINICAL HISTORY: Syncope, dizziness COMPARISON: CT December 2018 TECHNIQUE: Axial 5 mm thick images of the head were obtained without IV contrast. All CT scans are performed using dose optimization technique as appropriate and may include automated exposure control or mA/KV adjustment according to patient size. FINDINGS: No intracranial hemorrhage, mass, edema or shift of mid-line structures. No acute cortical based infarction. No cortical edema or sulcal effacement. Prominent atrophy and chronic ischemic denys nges are present. Old inferior left cerebellum infarction changes are present matching the comparison . No abnormal extra-axial fluid collections. Ventricles are in proportion to the volume loss. Arteria l and physiologic calcifications are present. Mastoid air cells and visualized portions of the paranasal sinuses are clear. No acute bony findings. IMPRESSION: Atrophy, chronic ischemic change and old infarction changes are present as detailed. No acute intracranial finding. Chronic ischemic changes can mask nonhemorrhagic acute infarction. MR brain followup can be obtained if there is ongoing concern for acute ischemia.
[2019-07-26] MEDS ORDERED: PANTOPRAZOLE 40 MG INJ ONE (15:41)
[2019-07-26] MEDS ORDERED: NA CHLORIDE 0.9% 1,000 ML ONE (15:41)
--- NOTE | 2019-07-26 15:42 | ER ---
Nurse's Notes [facility] Name: Jason Johnson Age: 69 yrs Sex: Male : 1950 Arrival Date: 07/26/2019 Time: 14:04 Bed 24 Private MD: Diagnosis: Syncope and collapse;Weakness;Unspecified kidney failure-insufficency Presentation: 07/26 14:00 Presenting complaint: EMS states: Pt was eating dinner at a restaurant and lost tr5 consciousness for about a minute and then woke up and vomited. Transition of care: patient was not received from another setting of care. Onset of symptoms was July 26, 2019. Risk Assessment: Do you want to hurt yourself or someone else? Patient reports no desire to harm self or others. Initial Sepsis Screen: Does the patient meet any 2 criteria? No. Patient's initial sepsis screen is negative. Does the patient have a suspected source of infection? No. Patient's initial sepsis screen is negative. Care prior to arrival: IV initiated. 20 GA, in the right antecubital area. 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 - Social history:: Smoking status: Patient/guardian denies using tobacco, never smoked. - Ebola Screening: : No symptoms or risks identified at this time. - Family history:: not pertinent. Screenin:00 Abuse screen: Denies threats or abuse. Nutritional screening: No deficits noted. tr5 Tuberculosis screening: No symptoms or risk factors identified. Fall Risk None identified. Assessment: 14:00 General: Appears uncomfortable, Behavior is calm, cooperative. Pain: Denies pain. tr5 Neuro: Level of Consciousness is awake, alert, obeys commands, Oriented to person, place, time, Video Game Engineer are equal bilaterally. Cardiovascular: Heart tones present Capillary refill < 3 seconds. Respiratory: Airway is patent Respiratory effort is even, unlabored, Respiratory pattern is regular, symmetrical. GI: Reports bloody stool. : No signs and/or symptoms were reported regarding the genitourinary system. EENT: No signs and/or symptoms were reported regarding the EENT system. Derm: No signs and/or symptoms reported regarding the dermatologic system. Musculoskeletal: No signs and/or symptoms reported regarding the musculoskeletal system. 15:00 Reassessment: Patient appears in no apparent distress at this time. Patient and/or tr5 family updated on plan of care and expected duration. Pain level reassessed. Patient is alert, oriented x 3, equal unlabored respirations, skin warm/dry/pink. Patient states feeling better. 16:00 Reassessment: Patient appears in no apparent distress at this time. No changes from tr5 previously documented assessment. Patient and/or family updated on plan of care and expected duration. Pain level reassessed. Patient is alert, oriented x 3, equal unlabored respirations, skin warm/dry/pink. 18:49 Reassessment: Patient is alert, oriented x 3, equal unlabored respirations, skin aa5 warm/dry/pink. Vital Signs: 14:00 BP 146 / 55; Pulse 100; Resp 17; Temp 97.7(O); Pulse Ox 99% on R/A; tr5 15:00 BP 133 / 80; Pulse 63; Resp 16; Pulse Ox 99% on R/A; tr5 ED Course: 14:00 Arm band placed on. tr5 14:00 Bed in low position. Call light in reach. Side rails up X 1. tr5 14:00 Inserted saline lock: 20 gauge in right antecubital area, using aseptic technique. tr5 14:04 Patient arrived in ED. em1 14:05 Felipe Gonzalez MD is Attending Physician. denys 15:21 CT completed. Patient tolerated procedure well. Patient moved back from CT. bq 15:21 Tomy Hutton, JAVI is Primary Nurse. tr5 15:22 XRAY Chest (1 view) In Process Unspecified. EDMS 15:22 CT Head Brain wo Cont In Process Unspecified. EDMS 15:27 Triage completed. tr5 15:41 Tano Salcido MD is Hospitalizing Provider. denys 18:49 No provider procedures requiring assistance completed. Patient admitted, IV remains in aa5 place. Administered Medications: 15:44 Drug: NS 0.9% 1000 ml Route: IV; Rate: 1 bolus; Site: right antecubital; tr5 17:28 Follow up: IV Status: Completed infusion; IV Intake: 1000ml tr5 15:44 Drug: ProTONIX 40 mg Route: IVP; Site: right antecubital; tr5 17:28 Follow up: Response: Marked relief of symptoms tr5 Intake: 17:28 IV: 1000ml; Total: 1000ml. tr5 Outcome: 15:42 Decision to Hospitalize by Provider. denys 18:49 Admitted to Tele accompanied by tech, family with patient, via stretcher, room 203, aa5 with chart, Report called to JAVI Cat 18:49 Condition: stable 18:49 Instructed on the need for admit, Demonstrated understanding of instructions. 18:50 Patient left the ED. aa5 Signatures: Dispatcher [employer] EDFelipe Vallejo MD MD cha Quilty, Betty bq Martinez, Eric em1 Manju Diaz RN RN aa5 Tomy Hutton RN RN tr5 Corrections: (The following items were deleted from the chart) 15:45 14:00 Care prior to arrival: None. tr5 tr5
--- NOTE | 2019-07-26 15:43 | EDPHYS ---
Physician Documentation [facility] Name: Jason Johnson Age: 69 yrs Sex: Male : 1950 Arrival Date: 07/26/2019 Time: 14:04 Bed 24 Private MD: ED Physician Felipe Gonzalez HPI: 07/26 15:36 This 69 yrs old Male presents to ER via EMS with complaints of SYNCOPE WHILE denys EATING. 15:36 no cp, no schaeffer. The patient has experienced near-syncope, almost passed out. Onset: The denys symptoms/episode began/occurred just prior to arrival. Duration: This was a single episode, that lasted 60 second(s). Context: the episode(s) was witnessed, by family. Associated injury: The patient did not suffer any apparent associated injury. Associated signs and symptoms: The patient has no apparent associated signs or symptoms. Current symptoms: Currently, the patient is not experiencing any symptoms. Severity of symptoms: At their worst the symptoms were moderate in the emergency department the symptoms are unchanged. Historical: - Allergies: 15:31 No Known Allergies; tr5 - Home Meds: 15:31 aspirin 81 mg Oral TbEC 1 tab once daily [Active]; multivitamin Oral tab daily tr5 [Active]; Probiotic Oral [Active]; - PMHx: 15:31 constipation; CVA; Hypertension; tr5 - PSHx: 15:31 CABG; tr5 - Immunization history:: Adult Immunizations up to date. - Social history:: Smoking status: Patient/guardian denies using tobacco, never smoked. - Ebola Screening: : No symptoms or risks identified at this time. - Family history:: not pertinent. ROS: 15:36 Constitutional: Negative for fever, chills, and weight loss, Eyes: Negative for injury, denys pain, redness, and discharge, ENT: Negative for injury, pain, and discharge, Neck: Negative for injury, pain, and swelling, Cardiovascular: Negative for chest pain, palpitations, and edema, Respiratory: Negative for shortness of breath, cough, wheezing, and pleuritic chest pain, Abdomen/GI: Negative for abdominal pain, nausea, vomiting, diarrhea, and constipation, Back: Negative for injury and pain, : Negative for injury, bleeding, discharge, and swelling, MS/Extremity: Negative for injury and deformity, Skin: Negative for injury, rash, and discoloration, Psych: Negative for depression, anxiety, suicide ideation, homicidal ideation, and hallucinations, Allergy/Immunology: Negative for hives, rash, and allergies, Endocrine: Negative for neck swelling, polydipsia, polyuria, polyphagia, and marked weight changes, Hematologic/Lymphatic: Negative for swollen nodes, abnormal bleeding, and unusual bruising. 15:36 Neuro: Positive for syncope. Exam: 15:36 Constitutional: This is a well developed, well nourished patient who is awake, alert, denys and in no acute distress. Head/Face: Normocephalic, atraumatic. Eyes: Pupils equal round and reactive to light, extra-ocular motions intact. Lids and lashes normal. Conjunctiva and sclera are non-icteric and not injected. Cornea within normal limits. Periorbital areas with no swelling, redness, or edema. ENT: Nares patent. No nasal discharge, no septal abnormalities noted. Tympanic membranes are normal and external auditory canals are clear. Oropharynx with no redness, swelling, or masses, exudates, or evidence of obstruction, uvula midline. Mucous membranes moist. Neck: Trachea midline, no thyromegaly or masses palpated, and no cervical lymphadenopathy. Supple, full range of motion without nuchal rigidity, or vertebral point tenderness. No Meningismus. Chest/axilla: Normal chest wall appearance and motion. Nontender with no deformity. No lesions are appreciated. Cardiovascular: Regular rate and rhythm with a normal S1 and S2. No gallops, murmurs, or rubs. Normal PMI, no JVD. No pulse deficits. Respiratory: Lungs have equal breath sounds bilaterally, clear to auscultation and percussion. No rales, rhonchi or wheezes noted. No increased work of breathing, no retractions or nasal flaring. Abdomen/GI: Soft, non-tender, with normal bowel sounds. No distension or tympany. No guarding or rebound. No evidence of tenderness throughout. Back: No spinal tenderness. No costovertebral tenderness. Full range of motion. Male : Normal genitalia with no discharge or lesions. Skin: Warm, dry with normal turgor. Normal color with no rashes, no lesions, and no evidence of cellulitis. MS/ Extremity: Pulses equal, no cyanosis. Neurovascular intact. Full, normal range of motion. Neuro: Awake and alert, GCS 15, oriented to person, place, time, and situation. Cranial nerves II-XII grossly intact. Motor strength 5/5 in all extremities. Sensory grossly intact. Cerebellar exam normal. Normal gait. Psych: Awake, alert, with orientation to person, place and time. Behavior, mood, and affect are within normal limits. 15:36 Abdomen/GI: Inspection: abdomen appears normal, Bowel sounds: normal, Palpation: abdomen is soft and non-tender, Rectal exam: is unremarkable, rectal tone normal, Stool: guaiac negative, hemorrhoid(s), are not appreciated, mass, is not appreciated, swelling, is not appreciated, tenderness, is not appreciated, Liver: no appreciated palpable abnormalities, Hernia: not appreciated. Vital Signs: 14:00 BP 146 / 55; Pulse 100; Resp 17; Temp 97.7(O); Pulse Ox 99% on R/A; tr5 15:00 BP 133 / 80; Pulse 63; Resp 16; Pulse Ox 99% on R/A; tr5 MDM: 14:05 Patient medically screened. [facility] 15:39 Data reviewed: vital signs, nurses notes, lab test result(s), EKG, radiologic studies, denys plain films. 07/26 14:52 Order name: Basic Metabolic Panel; Complete Time: 18:20 [facility] 07/26 14:52 Order name: CBC with Diff; Complete Time: 18:20 [facility] 07/26 14:52 Order name: LFT's; Complete Time: 18:20 [facility] 07/26 14:52 Order name: Magnesium; Complete Time: 18:20 [facility] 07/26 14:52 Order name: NT PRO-BNP; Complete Time: 18:20 [facility] 07/26 14:52 Order name: PT-INR; Complete Time: 18:20 [facility] 07/26 14:52 Order name: Troponin (emerg Dept Use Only); Complete Time: 18:20 [facility] 07/26 14:52 Order name: Lipase; Complete Time: 18:20 [facility] 07/26 14:52 Order name: Type And Screen [facility] 07/26 16:14 Order name: CKMB Creatine Kinase MB EDMS 07/26 16:14 Order name: CKMB Creatine Kinase MB EDMS 07/26 16:14 Order name: CKMB Creatine Kinase MB EDMS 07/26 16:14 Order name: CKMB Creatine Kinase MB EDMS 07/26 16:14 Order name: Creatine Phosphokinase [facility] 07/26 14:52 Order name: XRAY Chest (1 view); Complete Time: 18:20 [facility] 07/26 14:52 Order name: EKG; Complete Time: 14:53 [facility] 07/26 14:52 Order name: Cardiac monitoring; Complete Time: 15:23 [facility] 07/26 14:52 Order name: EKG - Nurse/Tech; Complete Time: 15:23 [facility] 07/26 14:52 Order name: CT Head Brain wo Cont; Complete Time: 18:20 [facility] 07/26 16:14 Order name: CONS Pharmacy Consult [facility] 07/26 16:14 Order name: Heart Healthy [facility] 07/26 16:14 Order name: Creatine Phosphokinase [facility] 07/26 16:14 Order name: Creatine Phosphokinase [facility] 07/26 16:14 Order name: Creatine Phosphokinase [facility] 07/26 16:14 Order name: Troponin I [facility] 07/26 16:14 Order name: Troponin I [facility] 07/26 16:14 Order name: Troponin I [facility] 07/26 18:41 Order name: RAD [facility] 07/26 14:52 Order name: IV Saline Lock; Complete Time: 15:23 [facility] 07/26 14:52 Order name: Labs collected and sent; Complete Time: 15:23 [facility] 07/26 14:52 Order name: O2 Per Protocol; Complete Time: 15:23 [facility] 07/26 14:52 Order name: O2 Sat Monitoring; Complete Time: 15:22 [facility] Administered Medications: 15:44 Drug: NS 0.9% 1000 ml Route: IV; Rate: 1 bolus; Site: right antecubital; tr5 17:28 Follow up: IV Status: Completed infusion; IV Intake: 1000ml tr5 15:44 Drug: ProTONIX 40 mg Route: IVP; Site: right antecubital; tr5 17:28 Follow up: Response: Marked relief of symptoms tr5 Disposition: 07/26/19 15:42 Hospitalization ordered by Tano Salcido for Observation. Preliminary diagnosis are Syncope and collapse, Weakness, Unspecified kidney failure - insufficency. - Bed requested for Telemetry/MedSurg (observation). - Status is Observation. aa5 - Condition is Stable. - Problem is new. - Symptoms have improved. UTI on Admission? No Signatures: Dispatcher [employer] EDMS Felipe Gonzalez MD MD cha Martinez, Eric em1 Manju Diaz, RN RN aa5 Tomy Hutton RN RN tr5 Corrections: (The following items were deleted from the chart) 17:14 15:42 Hospitalization Ordered by Tano Salcido MD for Observation. Preliminary em1 diagnosis is Syncope and collapse; Weakness. Bed requested for Telemetry/MedSurg (observation). Status is Observation. Condition is Stable. Problem is new. Symptoms have improved. UTI on Admission? No. denys 18:21 17:14 07/26/2019 15:42 Hospitalization Ordered by Tano Salcido MD for Observation. denys Preliminary diagnosis is Syncope and collapse; Weakness. Bed requested for Telemetry/MedSurg (observation). Status is Observation. Condition is Stable. Problem is new. Symptoms have improved. UTI on Admission? No. em1 18:49 14:52 Urine Dipstick-Ancillary ordered. denys aaYudith 18:50 18:21 07/26/2019 15:42 Hospitalization Ordered by Tano Salcido MD for Observation. aa5 Preliminary diagnosis is Syncope and collapse; Weakness; Unspecified kidney failure - insufficency. Bed requested for Telemetry/MedSurg (observation). Status is Observation. Condition is Stable. Problem is new. Symptoms have improved. UTI on Admission? No. denys
[2019-07-26] MEDS ORDERED: MORPHINE 2 MG/ML SYR IV PRN (16:10)
[2019-07-26] MEDS ORDERED: ONDANSETRON 4 MG/2 ML VIAL IV PRN (16:10)
[2019-07-26] MEDS ORDERED: ACETAMINOPHEN 500 MG TAB PO PRN (16:10)
--- NOTE | 2019-07-26 16:14 | P.HP ---
Certification for Inpatient Patient admitted to: Observation With expected LOS: <2 Midnights Patient will require the following post-hospital care: None Practitioner: I am a practitioner with admitting privileges, knowledge of patient current condition, hospital course, and medical plan of care. Services: Services provided to patient in accordance with Admission requirements found in Title 42 Section 412.3 of the Code of Federal Regulations Patient History Date of Service: 07/27/19 Reason for admission: Syncope History of Present Illness: 69 yo Male with past medical history of CAD s/p CABG , HTN , CVA admitted with Syncope. Patient was standing then all of a sudden he felt lightheaded and passed out. Patient does not remember exactly what happened. most of the history is obtained from the bystander at the bedside who was at that time with the patient . according to him He passed out and did not have any pulse and had a staring episode and was not responding to calls or touch. he has regained consciousness shortly after. patient denies any chest pain or shortness of breath No fever no chills had an episode of vomiting patient was assessed in the ER and was admitted for further management for possible syncope and syncopal workup Allergies No Known Drug Allergies Allergy (Verified 07/26/19 19:32) Unknown Home medications list reviewed: Yes Home Medications: Aspirin 2 tab PO DAILY 06/14/18 Clopidogrel Bisulfate [Plavix*] 75 mg PO DAILY tablet 12/23/18 Docusate/Senna [Senokot-S*] 2 tab PO BEDTIME tab 12/23/18 Ferrous Sulfate [Ferrous Sulfate*] 325 mg PO DAILY tab 12/23/18 Linaclotide [Linzess] 145 mcg PO DAILY 06/10/19 Irbesartan [Avapro] 1 tab PO DAILY 07/26/19 L.acidoph,Paracasei, B.lactis [Probiotic] 1 cap PO BREAKFAST 07/26/19 L.acidoph,Paracasei, B.lactis [Probiotic] 2 cap PO BEDTIME 07/26/19 Multivit with Iron,Minerals [Spectravite Senior] 1 tab PO DAILY 07/26/19 Omeprazole 20 mg PO 0630 07/26/19 - Past Medical/Surgical History Diabetic: No Past Medical History: Reviewed- Non-Contributory -: CVA -: HTN -: renal insufficiency -: nava Hip FX -: broken ankle R -: CKD Past Surgical History: Reviewed- Non-Contributory -: tonsillectomy -: nava reconstructive hip SX -: SX R ankle with pins - Social History Alcohol use: No CD- Drugs: No Caffeine use: Yes Review of Systems 10-point ROS is otherwise unremarkable General: Unremarkable Eyes: Unremarkable ENT: Unremarkable Respiratory: Unremarkable Physical Examination - Vital Signs Temperature: 97.8 F Blood Pressure: 133/80 Pulse: 63 Respirations: 18 - Physical Exam General: Alert, In no apparent distress, Oriented x3, Cooperative HEENT: Atraumatic, Normocephalic Neck: Supple, 2+ carotid pulse no bruit Respiratory: Clear to auscultation bilaterally Cardiovascular: Regular rate/rhythm, Normal S1 S2 Capillary refill: <2 Seconds Gastrointestinal: Soft and benign, W/out hepatosplenomegaly Musculoskeletal: No clubbing, No swelling, No erythema Integumentary: No rashes, No significant lesion, No tenderness/swelling Neurological: Normal strength at 5/5 x4 extr, Normal tone Lymphatics: No axilla or inguinal lymphadenopathy Urinary: Other (no bladder distention ) External genitalia: Deferred Rectal: Deferred Assessment and Plan - Problems (Diagnosis) (1) Syncope Current Visit: No Status: Active Plan: Monitor closely on telemetry Will get a syncopal workup Get an MRI of the brain, echocardiogram and carotid Doppler Had a CT brain which showed chronic CVA (2) CKD (chronic kidney disease) Onset Date: 06/16/18 Current Visit: No Status: Acute Plan: FARRAH on CKD stage 2 Probably due to dehydration Start on IV fluids Monitor renal parameters Qualifiers: Chronic kidney disease stage: stage 3 (moderate) Qualified Code(s): N18.3 - Chronic kidney disease, stage 3 (moderate) (3) Constipation Onset Date: 06/16/18 Current Visit: No Status: Acute Plan: Continue home medications and titrate as needed Will start on lactulose p.r.n. Qualifiers: Constipation type: chronic idiopathic constipation Qualified Code(s): K59.04 - Chronic idiopathic constipation (4) H/O: CVA (cerebrovascular accident) Current Visit: Yes Status: Chronic Plan: Will get an MRI of the brain Syncope/stroke workup Will get a neurology evaluation Neuro vital signs monitored Continue home medications (5) HTN (hypertension) Current Visit: Yes Status: Chronic Plan: Titrate antihypertensives (6) CAD (coronary artery disease) Current Visit: Yes Status: Chronic Plan: Continue home medications and titrate as needed Monitor closely under telemetry Discharge Plan: Home Plan to discharge in: 48 Hours - Advance Directives Does patient have a Living Will: No Does patient have a Durable POA for Healthcare: No Time Spent Managing Pts Care (In Minutes): 46
[2019-07-26 16:26] LABS: Absolute Lymphocytes (CBC) 1.1 K/uL (0.7-4.9); Basophils % 0.7 % (0-1.3); Hematocrit 38.9 % (39.6-49.0); Lymphocytes % 11.5 % (15.3-44.8); MPV 9.6 fL (7.6-11.3); RBC Red Blood Cell Count 4.08 M/uL (4.33-5.43)
[2019-07-26 16:27] LABS: Protime INR 1.15
--- NOTE | 2019-07-26 16:28 | RAD REPORT ---
EXAM DESCRIPTION: RAD - Chest Single View - 07/26/2019 3:21 pm CLINICAL HISTORY: Cough, hypertension COMPARISON: June 10, 2019 TECHNIQUE: AP portable chest image was obtained 1515 hours . FINDINGS: Lungs are clear. Heart and vasculature are normal. No measurable pleural effusion and no p neumothorax. No acute bony abnormality seen. No acute aortic findings suspected. IMPRESSION: No acute cardiopulmonary process. No significant change from comparison.
[2019-07-26 16:46] LABS: BUN Blood Urea Nitrogen 28 mg/dL (7-18); Bicarbonate 27 mmol/L (21-32); Glucose Level 98 mg/dL (74-106); Potassium 3.9 mmol/L (3.5-5.1); Sodium Level 142 mmol/L (136-145)
[2019-07-26 16:47] LABS: ALT/SGPT 17 U/L (12-78); AST/SGOT 12 U/L (15-37); Albumin 3.7 g/dL (3.4-5.0); Alkaline Phosphatase 83 U/L (45-117); Bilirubin Direct 0.2 mg/dL (0-0.2); Bilirubin Total 0.7 mg/dL (0.2-1.0); Lipase 65 U/L (73-393); Magnesium 2.4 mg/dL (1.8-2.4); NT PRO-BNP 378 pg/mL (<125); Protein, Total 7.5 g/dL (6.4-8.2); Troponin (Emerg Dept Use Only) < 0.02 ng/mL (0.0-0.045)
[2019-07-26] MEDS: NA CHLORIDE 0.9% 1,000 ML IV SCH ×2 (17:00→19:45)
[2019-07-26] MEDS ORDERED: LACTULOSE 20 GM/30 ML UCUP PO PRN (17:04)
--- NOTE | 2019-07-26 18:38 | RAD REPORT ---
EXAM DESCRIPTION: RAD - Abdomen 1 View (KUB) - 07/26/2019 5:47 pm CLINICAL HISTORY: nausea COMPARISON: Abdomen 1 View (KUB) dated 12/15/2018; Abdomen 1 View (KUB) dated 01/23/2018 FINDINGS: Stomach is normal size. A very large amount of stool is again noted filling and dilating t he colon down to the rectum level. No small bowel dilatation seen. No free air or pneumatosis. The fe william impaction pattern is similar to the comparison study. No suspicious calcifications. No acute bone finding. IMPRESSION: Fecal impaction pattern similar to July 17, 2019.
[2019-07-26] MEDS: ATORVASTATIN 40 MG TAB PO SCH (19:46)
[2019-07-26] MEDS: DOCUSATE NA/SENNA CONC 1 TAB PO SCH (19:47)
[2019-07-26 20:51] LABS: CKMB Creatine Kinase MB < 1.0 ng/mL (0.3-3.6); Creatine Phosphokinase 48 U/L (39-308); Troponin I < 0.02 ng/mL (0.0-0.045)
[2019-07-27 01:30] LABS: CKMB Creatine Kinase MB < 1.0 ng/mL (0.3-3.6); Creatine Phosphokinase 37 U/L (39-308)
[2019-07-27] MEDS: NA CHLORIDE 0.9% 1,000 ML IV SCH ×4 (03:00→16:26)
--- NOTE | 2019-07-27 07:08 | EKG ---
Test Date: 2019-07-26 Test Time: 15:35:17 Spooler Operator Automatic: KHADART MEASUREMENT RESULTS: Intervals: Rate: 64 MT: 178 QRSD: 82 QT: 408 QTc: 420 [place]: P: 74 MT: 178 QRS: -32 T: -39 INTERPRETIVE STATEMENTS: Normal sinus rhythm Left axis deviation Nonspecific T wave abnormality Abnormal ECG Compared to ECG 06/10/2019 15:53:12 Left-axis deviation now present T-wave abnormality now present Sinus bradycardia no longer present First degree AV block no longer present Electronically Signed On 07-27-19 07:07:37 CERTIFIED VETERINARY TECHNICIAN by Cornelio Morgan
--- NOTE | 2019-07-27 07:12 | RAD REPORT ---
EXAM DESCRIPTION: US - CP - 07/26/2019 9:32 pm CLINICAL HISTORY: Syncope COMPARISON: None. TECHNIQUE: Real-time sonographic evaluation of both carotid systems was performed. Shah scale and Do ppler interrogation were performed with waveform tracing bilaterally. FINDINGS: Normal high resistance waveforms are noted in both external carotid arteries. The common c arotid arteries and internal carotid arteries show normal low resistance waveforms. Calcified plaquing changes are present at each carotid bulb, more prominent on the left. Visually thi s does not appear to significantly narrow a vessel lumen. Peak systolic and end diastolic velocity va lues and the ICA/CCA ratios are in the non-hemodynamically significant range. Antegrade flow seen in both vertebral arteries. Right vertebral artery was more difficult to visualiz e. Velocity values and ratios were recorded and are retained in the patient's imaging records. IMPRESSION: Bilateral carotid bulb calcified plaquing changes worse on the left. Currently atherosclerotic changes do not cause a hemodynamically significant degree of stenosis.
[2019-07-27 07:27] LABS: Urine Appearance CLEAR; Urine Bilirubin NEGATIVE (NEG); Urine Blood NEGATIVE (NEG); Urine Color YELLOW; Urine Glucose NEGATIVE (NEG); Urine Protein NEGATIVE (NEG); Urine Specific Gravity 1.015 (1.005-1.030); Urine Urobilinogen 0.2 mg/dL (0.2-1.0)
[2019-07-27 07:28] LABS: Urine Microscopic Reflex NO UMIC
--- NOTE | 2019-07-27 08:58 | RAD REPORT ---
EXAM DESCRIPTION: MRI - Brain Wo Cont - 07/27/2019 8:36 am CLINICAL HISTORY: syncope COMPARISON: CT head July 26 TECHNIQUE: Sagittal T1-weighted images were obtained along with axial PD, heavily T2-weighted and T2 -FLAIR images. Axial DWI and ADC mapping sequences were also obtained along with coronal heavily T2-w eighted images. FINDINGS: No acute or subacute infarction changes identified. There are old infarction changes invol ving the posterior inferior left cerebellar hemisphere. There is no edema or shift of midline structu res. No extra-axial fluid collections. Shah-matter/white matter junction is preserved. Signal voids a re seen as a normal finding in the major intracranial vessels. Patient has underlying cerebral and cerebellar atrophy and extensive cerebral white matter chronic is chemic change. Chronic ischemic change or lacunar type infarctions involving each thalamus and to a l fer degree each basal ganglia. Left pontine chronic ischemic changes are evident. Ventricles are in proportion to the amount of volume loss. Mastoid air cells and paranasal sinuses are clear. IMPRESSION: No acute or subacute infarction changes identified. Prominent chronic ischemic change in the cerebral white matter, each thalamus, left side of the mari and minimally in each basal ganglia. Moderate-sized old infarction involving the posterior inferior left cerebellum.
[2019-07-27] MEDS: HOME MED 1 EA UNK (Linaclotide [Linzess] 145 MCG) PO SCH (09:00)
[2019-07-27] MEDS ORDERED: METOPROLOL TAR 50 MG TAB PO SCH (09:00)
--- NOTE | 2019-07-27 09:14 | P.PN ---
Subjective Date of Service: 07/27/19 Chief Complaint: Syncope Subjective: Improving Review of Systems 10-point ROS is otherwise unremarkable Physical Examination - Vital Signs Temperature: 98.2 F Blood Pressure: 112/64 Pulse: 67 Respirations: 18 Pulse Ox (%): 96 - Physical Exam General: Alert, In no apparent distress HEENT: Atraumatic, Normocephalic Neck: Supple Respiratory: Clear to auscultation bilaterally, Normal air movement Cardiovascular: Regular rate/rhythm, Normal S1 S2 Capillary refill: <2 Seconds Gastrointestinal: Soft and benign, W/out hepatosplenomegaly Musculoskeletal: No clubbing Integumentary: No rashes Neurological: Normal speech, Normal strength at 5/5 x4 extr Lymphatics: No axilla or inguinal lymphadenopathy Urinary: Other (No bladder distention) External genitalia: Deferred Rectal: Deferred Assessment & Plan - Problems (Diagnosis) (1) Syncope Current Visit: No Status: Active Plan: No further Syncopal episodes Syncopal workup including MRI carotid Doppler and echocardiogram still pending Monitor closely (2) CKD (chronic kidney disease) Onset Date: 06/16/18 Current Visit: No Status: Acute Plan: (Monitor renal parameters Qualifiers: Chronic kidney disease stage: stage 3 (moderate) Qualified Code(s): N18.3 - Chronic kidney disease, stage 3 (moderate) (3) Constipation Onset Date: 06/16/18 Current Visit: No Status: Acute Plan: Continue lactulose and home medications will give enema p.r.n. Qualifiers: Constipation type: chronic idiopathic constipation Qualified Code(s): K59.04 - Chronic idiopathic constipation (4) CAD (coronary artery disease) Current Visit: Yes Status: Chronic Plan: Continue home medications and titrate as needed Monitor closely under telemetry (5) H/O: CVA (cerebrovascular accident) Current Visit: Yes Status: Chronic Plan: Will get an MRI of the brain Syncope/stroke workup Will get a neurology evaluation Neuro vital signs monitored Continue home medications (6) HTN (hypertension) Current Visit: Yes Status: Chronic Plan: Titrate antihypertensives Discharge Plan: Home Plan to discharge in: 24 Hours Time Spent Managing Pts Care (In Minutes): 38
[2019-07-27] MEDS: CLOPIDOGREL 75 MG TABLET PO SCH (09:25)
[2019-07-27] MEDS: ASPIRIN 81 MG CHEWABLE TABLET PO SCH (09:25)
[2019-07-27] MEDS: AMLODIPINE 10 MG TAB PO SCH (09:25)
[2019-07-27 09:34] LABS: Absolute Lymphocytes (CBC) 1.3 K/uL (0.7-4.9); Basophils % 1.1 % (0-1.3); Hematocrit 33.3 % (39.6-49.0); Lymphocytes % 23.9 % (15.3-44.8); RBC Red Blood Cell Count 3.48 M/uL (4.33-5.43)
[2019-07-27 09:45] LABS: Albumin 3.1 g/dL (3.4-5.0); Bilirubin Total 0.5 mg/dL (0.2-1.0); Potassium 3.6 mmol/L (3.5-5.1); Protein, Total 6.2 g/dL (6.4-8.2)
[2019-07-27 09:48] LABS: CKMB Creatine Kinase MB < 1.0 ng/mL (0.3-3.6); Creatine Phosphokinase 36 U/L (39-308)
--- NOTE | 2019-07-27 15:12 | ECHO ---
HEIGHT: 6 ft 2 in WEIGHT: 185 lb 0 oz DATE OF STUDY: 07/27/[address]: Noel Salcido DO 2-DIMENSIONAL: YES M.MODE: YES DOPPLER: YES COLOR FLOW: YES TDS: YES PORTABLE: NO DEFINITY: NO BUBBLE STUDY: NO DIAGNOSIS: SYNCOPE CARDIAC HISTORY: CATHERIZATION: NO SURGERY: YES PROSTHETIC VALVE: NO PACEMAKER: NO MEASUREMENTS (cm) DIASTOLIC (NORMALS) SYSTOLIC (NORMALS) IVSd 1.1 (0.6-1.2) LA Diam 3.6 (1.9-4.0) LVEF 68% LVIDd 4.9 (3.5-5.7) LVIDs 3.0 (2.0-3.5) %FS 38% LVPWd 1.1 (0.6-1.2) Ao Diam 3.4 (2.0-3.7) 2 DIMENSIONAL ASSESSMENT: RIGHT ATRIUM: NORMAL LEFT ATRIUM: NORMAL RIGHT VENTRICLE: NORMLA LEFT VENTRICLE: NORMAL TRICUSPID VALVE: NORMAL MITRAL VALVE: NORMAL PULMONIC VALVE: NORMAL AORTIC VALVE: NORMAL PERICARDIAL EFFUSION: NONE AORTIC ROOT: NORMAL LEFT VENTRICULAR WALL MOTION: NORMAL DOPPLER/COLOR FLOW: PHYSIOLOGIC TRICUSPID REGURGITATION. NORMAL RIGHT VENTRICULAR SYSTOLIC PRESSURE. COMMENTS: NORMAL 2D ECHOCARDIOGRAM WITH DOPPLER. TECHNOLOGIST: Smith LEUNG
[2019-07-27] MEDS: ATORVASTATIN 40 MG TAB PO SCH (20:18)
[2019-07-27] MEDS: DOCUSATE NA/SENNA CONC 1 TAB PO SCH (20:18)
[2019-07-27 20:31] VITALS: BMI 24.0
--- NOTE | 2019-07-27 22:47 | CON ---
Reason For Consultation: Consultation called because of syncope. History Of Present Illness: Mr. Johnson is a 69-year-old, right-handed, patient with multipl e stroke risk factors and coronary artery disease including coronary artery bypass grafting, hyperten amado, multiple prior strokes, who was eating lunch after christianity yesterday and suddenly passed out. T he patient denied a warning. He said he was his normal self and then recalls people putting wet towe ls on him to revive him. He reportedly had very low blood pressure when the emergency medical servic es arrived. There was no tonic or clonic activity, tongue biting, or loss of bowel and bladder contr ol. His blood pressure was reportedly very low with pulse also very low. The patient said he had si milar episode in the past and did not have seizure activity at that time. After he woke up and came to, he had an episode of vomiting and was brought in the [facility]. His head CT scan showe d no acute ischemic or hemorrhagic change. His brain MRI identified multiple chronic lacunar ischemi c strokes involving posterior, inferior left cerebellar hemisphere and extensive cerebral white matte r ischemic disease in addition to strokes of the bilateral thalami and basal ganglia and the left rachel s. The ventricles were noted to be prominent due to the moderate small-vessel ischemic disease. He has additional workup included an echocardiogram, which showed ejection fraction of 68% and was a nor mal study. His electrocardiogram showed normal sinus rhythm with left axis deviation. Carotid arter y ultrasound showed bilateral carotid bulb calcification plaque, worse on the left, but the changes d o not cause hemodynamically significant stenosis. The patient said prior to him arriving in emergenc y room yesterday, he returned to his baseline. Past Medical History: As indicated in addition to renal insufficiency. Surgical History: Bilateral hip fracture surgery, broken right ankle, and bypass grafting surgery al allen with tonsillectomy. He has pins in the right ankle. Home Medications: Aspirin 162 mg daily, Plavix 75 mg daily. Senokot-S 2 tabs at bedtime, ferrous dallas lfate 325 mg daily, Linzess 145 mcg daily, Avapro 1 tablet daily, Probiotic 1 in the morning and 2 at nighttime, multivitamin with iron daily, omeprazole 20 mg daily. Allergies: NO KNOWN DRUG ALLERGIES. Family History: Noncontributory. Review of Systems: He denies any recent fevers, chills, nausea, vomiting, myalgias, arthralgias, headache, weight change , rash, psychiatric complaints, or gastrointestinal issues. It should be noted, he did have vomiting after his syncopal episode. Physical Examination: Vital Signs: Blood pressure 126/76, pulse 60, respiratory rate 16, temperature 99.1, oxygen saturati on 97% on room air. Weight 185 pounds, height 62 inches, BMI 23.8. General: Mr. Johnson is resting comfortably in bed. Dr. Gonzalez is visiting at the bedside. He is i n no acute distress. HEENT: He is normocephalic, atraumatic. Sclerae anicteric. Oropharynx is pink and moist. Neck: Supple. Chest: Clear. Heart: Regular. Extremities: Show no clubbing, cyanosis, or edema. Neurological: He is alert and oriented to situation, place, and person. Does follow commands approp riately. Does have some difficulty keeping a straight story about what happened to him. Otherwise, he has no slurred speech. Normal labial, lingual, and guttural sounds. Cranial nerves despite his m ultiple strokes do not show focal deficits on eye movement or visual field confrontation testing. To ngue and palate are midline. Motor examination, he does have slightly increased tone in both upper e xtremities and the dysmetria is noted in both upper extremities, more notably in the left upper extre mity. Otherwise, strength is intact in the upper and lower extremity despite his strokes. His senso ry exam reportedly is normal in the upper and lower extremities. Difficult to fully assess though th e patient denies and he is actually accurate and sensory loss is actually accurate on testing. Coord ination again is as indicated. Reflexes are symmetric in the upper and lower extremities, 1+ at the biceps, triceps, 0 at the patellae bilaterally. Gait, good stance and stride. Laboratory Studies: Complete blood count with differential is remarkable for slightly low hemoglobin and hematocrit of 11.4 33.3, white blood cell count is normal at 5.2, platelets normal at 156. INR 1.15. Chemistries showed renal insufficiency with creatinine 1.55, slightly elevated chloride of 113 , otherwise unremarkable. Glucose ranged from 89 to 145. Liver function studies unremarkable except for a slightly low AST of 7 and ALT 14. Creatinine kinase is low at 336. Urinalysis is normal. Assessment: A 69-year-old patient with a possible vasovagal syncopal episode, probably in associatio n with hypotension and renal insufficiency. He may have been dehydrated as well. Has no evidence of an infection or acute stroke. The event is unlikely to have been a seizure. Plan: 1.Should be hydrated. 2.Needs cardiac monitoring to rule out arrhythmia and symptomatic bradycardia. 3.We will follow up on EEG, which is ordered, although it is unlikely that will yield specific abnor mality that may explain the patient's syncopal episode. 4.After discharge, follow up with Dr. Blunt in clinic 1 month later. 5.Continue with all medications as appropriate for stroke risk reduction and blood pressure manageme nt. SEBAS/MADALYN Voice ID: [id number] Report ID: [id number]
[2019-07-28] MEDS ORDERED: METOPROLOL TAR 50 MG TAB PO SCH (06:00)
[2019-07-28] MEDS: AMLODIPINE 10 MG TAB PO SCH (08:20)
[2019-07-28] MEDS: ASPIRIN 81 MG CHEWABLE TABLET PO SCH (08:20)
[2019-07-28] MEDS: CLOPIDOGREL 75 MG TABLET PO SCH (08:20)
[2019-07-28] MEDS: NA CHLORIDE 0.9% 1,000 ML IV SCH (08:21)
[2019-07-28] MEDS: HOME MED 1 EA UNK (Linaclotide [Linzess] 145 MCG) PO SCH (08:21)
[2019-07-28 09:07] VITALS: O2SAT 95
[2019-07-28 13:40] VITALS: BP 132/82; TEMP 98.7
--- NOTE | 2019-07-28 14:26 | P.DS ---
Admission Date: 07/26/19 Discharge Date: 07/29/19 Disposition: ROUTINE DISCHARGE Discharge Condition: GOOD Reason for Admission: Syncope - Problems (1) Syncope Status: Active (2) CKD (chronic kidney disease) Onset Date: 06/16/18 Status: Acute Qualifiers: Chronic kidney disease stage: stage 3 (moderate) Qualified Code(s): N18.3 - Chronic kidney disease, stage 3 (moderate) (3) Constipation Onset Date: 06/16/18 Status: Acute Qualifiers: Constipation type: chronic idiopathic constipation Qualified Code(s): K59.04 - Chronic idiopathic constipation (4) CAD (coronary artery disease) Status: Chronic (5) H/O: CVA (cerebrovascular accident) Status: Chronic (6) HTN (hypertension) Status: Chronic Brief History of Present Illness: 69 yo Male with past medical history of CAD s/p CABG , HTN , CVA admitted with Syncope. Patient was standing then all of a sudden he felt lightheaded and passed out. Patient does not remember exactly what happened. most of the history is obtained from the bystander at the bedside who was at that time with the patient . according to him He passed out and did not have any pulse and had a staring episode and was not responding to calls or touch. he has regained consciousness shortly after. patient denies any chest pain or shortness of breath No fever no chills had an episode of vomiting patient was assessed in the ER and was admitted for further management for possible syncope and syncopal workup Hospital Course: He was admitted and was monitored closely under telemetry. Histamines rhythm does not show any arrhythmia. he has syncopal workup and with CT of the brain, carotid Doppler echocardiogram and also an MRI of the brain which were within normal limits. He was also found to have constipation for which stool softeners were given he has followup with the GI specialists as outpatient. Neurology evaluation was done. He also underwent an EEG. The EEG results still pending, but patient wanted go home and follow up results as an outpatient. He is being discharged home today in a stable condition with advice to follow up with PCP in 1 week and also with Neurology in 1-2 weeks Vital Signs/Physical Exam: Temp Pulse Resp BP Pulse Ox 98.7 F 52 18 132/82 96 07/28/19 12:00 07/28/19 12:00 07/28/19 12:00 07/28/19 12:00 07/28/19 12:00 General: Alert, In no apparent distress HEENT: Atraumatic, Normocephalic Neck: Supple Respiratory: Clear to auscultation bilaterally Cardiovascular: Normal pulses, Regular rate/rhythm Capillary refill: <2 Seconds Gastrointestinal: Soft and benign, W/out hepatosplenomegaly Musculoskeletal: No clubbing, No swelling Neurological: Normal speech, Normal strength at 5/5 x4 extr Laboratory Data at Discharge: WBC 5.3 K/uL (4.3-10.9) D 07/27/19 09:13 Hgb 11.4 g/dL (13.6-17.9) L 07/27/19 09:13 Hct 33.3 % (39.6-49.0) L 07/27/19 09:13 Plt Count 156 K/uL (152-406) 07/27/19 09:13 PT 13.5 SECONDS (9.5-12.5) H 07/26/19 16:12 INR 1.15 07/26/19 16:12 Sodium 145 mmol/L (136-145) 07/27/19 09:13 Potassium 3.6 mmol/L (3.5-5.1) 07/27/19 09:13 BUN 26 mg/dL (7-18) H 07/27/19 09:13 Creatinine 1.55 mg/dL (0.55-1.3) H 07/27/19 09:13 Glucose 145 mg/dL (74-106) H 07/27/19 09:13 Magnesium 2.4 mg/dL (1.8-2.4) 07/26/19 16:12 Total Bilirubin 0.5 mg/dL (0.2-1.0) 07/27/19 09:13 AST 7 U/L (15-37) L 07/27/19 09:13 ALT 14 U/L (12-78) 07/27/19 09:13 Alkaline Phosphatase 70 U/L (45-117) 07/27/19 09:13 Troponin I < 0.02 ng/mL (0.0-0.045) 07/26/19 20:09 Lipase 65 U/L (73-393) L 07/26/19 16:12 Home Medications: Aspirin 2 tab PO DAILY 06/14/18 Clopidogrel Bisulfate [Plavix*] 75 mg PO DAILY tablet 12/23/18 Docusate/Senna [Senokot-S*] 2 tab PO BEDTIME tab 12/23/18 Ferrous Sulfate [Ferrous Sulfate*] 325 mg PO DAILY tab 12/23/18 Linaclotide [Linzess] 145 mcg PO DAILY 06/10/19 L.acidoph,Paracasei, B.lactis [Probiotic] 1 cap PO BREAKFAST 07/26/19 L.acidoph,Paracasei, B.lactis [Probiotic] 2 cap PO BEDTIME 07/26/19 Multivit with Iron,Minerals [Spectravite Senior] 1 tab PO DAILY 07/26/19 Omeprazole 20 mg PO 0630 07/26/19 Atorvastatin Calcium [Lipitor] 40 mg PO BEDTIME tab 07/28/19 Diet: AHA Activity: Ad sada Followup: New Blunt MD [ASSOCIATE-ACTIVE - CAN ADMIT] - Time spent managing pt's care (in minutes): 38
--- NOTE | 2019-07-30 07:17 | EEG ---
CHART: [id number] TEST ID#: [id number] DATE OF STUDY: 07/28/2019 THE EEG WAS RECORDED [place] IN THE PATIENTS ROOM ON A 17 CHANNEL MACHINE. ELECTRODES WERE APPLIED IN THE USUAL MANNER USING THE INTERNATIONAL 10-20 SYSTEM. THE WAKING BACKGROUND RHYTHM IN THIS RECORD CONSISTS OF VERY WELL DEVELOPED AND WELL ORGANIZED WAVES OF 9 HZ., MAXIMAL IN THE POSTERIOR HEAD REGIONS WHICH ATTENUATE NORMALLY WITH EYE OPENING. LOW-VOLTAGE 18-22 HZ ACTIVITY IS EXPRESSED IN THE FRONTAL REGIONS. THERE ARE NO FOCAL OR LATERALIZING FEATURES. NO EPILEPTIFORM ACTIVITY APPEARS. SLEEP DID NOT OCCUR. IN ADDITION NORMAL SLEEP PATTERNS ARE PRESENT. HYPERVENTILATION WAS NOT PERFORMED. PHOTIC STIMULATION PRODUCED NO DRIVING BILATERALLY. IMPRESSION: NORMAL EEG FOR THE AGE OF THE PATIENT IN [place], DROWSINESS AND SLEEP.
== END 2019-07-28 15:35 | disposition home or self-care (01) ==
LOC: ER 14:01 → INTOOBSV 16:11 → ERHOLD 16:11 → 2ND 18:45
PROVIDERS: ADMIT Family Medicine; ATTEND Family Medicine
DX: R55 Syncope and collapse (principal); K59.00 Constipation, unspecified; I12.9 Hypertensive chronic kidney disease with stage 1 through stage 4 chronic kidney disease, or unspecified chronic kidney disease; N18.3 Chronic kidney disease, stage 3 (moderate); Z86.73 Personal history of transient ischemic attack (TIA), and cerebral infarction without residual deficits; I25.10 Atherosclerotic heart disease of native coronary artery without angina pectoris; Z95.1 Presence of aortocoronary bypass graft
CPT/HCPCS: 36415; 70450; 70551; 71045; 74018; 80048; 80053; 80076; 81003; 82550; 82553; 82947; 83690; 83735; 83880; 84484; 85025; 85610; 86850; 86900; 86901; 93005; 93306; 93880; 94760; 95816; 96361; 96374; 99285; C9113; G0378; J7030

== ENCOUNTER 2019-11-12 15:53 | Emergency (ER) | payer OTHER ==
--- OUTSIDE RECORDS SUMMARY | 2019-11-12 15:58 | XMS REPORT ---
:1950 [facility] Address [address] [place] [address] Care Team Providers Name Role Phone MIGUEL [...] Value Reference Range Comments COLOR (BEAKER) (test dxxl=334) Yellow CLARITY (BEAKER) (test fgjm=895) Hazy SPECIFIC GRAVITY UA (BEAKER) (test xxzd=622) 1.008 1.001-1.035 PH UA (BEAKER) (test lnmp=295) 7.5 5.0-8.0 PROTEIN UA (BEAKER) (test yywh=690) 20 mg/dL Negative GLUCOSE UA (BEAKER) (test rpov=881) Negative Negative KETONES UA (BEAKER) (test izel=584) Negative Negative BILIRUBIN UA (BEAKER) (test hpdi=961) Negative Negative BLOOD UA (BEAKER) (test arnc=763) Negative Negative NITRITE UA (BEAKER) (test bukd=656) Negative Negative LEUKOCYTE ESTERASE UA (BEAKER) (test iejg=286) Trace Negative UROBILINOGEN UA (BEAKER) (test laqv=995) 4.0 mg/dL 0.2-1.0 RBC UA (BEAKER) (test xjag=522) < /HPF WBC UA (BEAKER) (test hcto=652) 3 /HPF SQUAMOUS EPITHELIAL (BEAKER) (test ejlg=937) 1 /HPF SOURCE(BEAKER) (test xdxg=0794) [id number] 05:39:00 Test Item Value Reference Range Comments PHOSPHORUS (BEAKER) (test zwil=031) 2.8 mg/dL 2.3-4.7 CBC W/PLT COUNT & AUTO [id number] 05:18:00 Test Item Value Reference Range Comments WHITE BLOOD CELL COUNT (BEAKER) (test rgxr=829) 13.3 K/ L 3.5-10.5 RED BLOOD CELL COUNT (BEAKER) (test ahyq=966) 2.86 M/ L 4.63-6.08 HEMOGLOBIN (BEAKER) (test gyyf=507) 9.1 GM/DL 13.7-17.5 HEMATOCRIT (BEAKER) (test bvev=122) 27.5 % 40.1-51.0 MEAN CORPUSCULAR VOLUME (BEAKER) (test dwkv=622) 96.2 fL 79.0-92.2 MEAN CORPUSCULAR HEMOGLOBIN (BEAKER) (test 31.8 pg 25.7-32.2 dfbu=026) MEAN CORPUSCULAR HEMOGLOBIN CONC (BEAKER) (test 33.1 GM/DL 32.3-36.5 jdpl=102) RED CELL DISTRIBUTION WIDTH (BEAKER) (test 15.1 % 11.6-14.4 tsxc=729) PLATELET COUNT (BEAKER) (test iejv=781) 225 K/CU MM 150-450 MEAN PLATELET VOLUME (BEAKER) (test rpum=293) 11.5 fL 9.4-12.4 NUCLEATED RED BLOOD CELLS (BEAKER) (test 0 /100 WBC 0-0 wfyn=378) NEUTROPHILS RELATIVE PERCENT (BEAKER) (test 73 % qqjx=913) LYMPHOCYTES RELATIVE PERCENT (BEAKER) (test 16 % xmkd=711) MONOCYTES RELATIVE PERCENT (BEAKER) (test 6 % vdpj=118) EOSINOPHILS RELATIVE PERCENT (BEAKER) (test 3 % jgay=689) BASOPHILS RELATIVE PERCENT (BEAKER) (test 1 % yyhs=692) NEUTROPHILS ABSOLUTE COUNT (BEAKER) (test 9.69 K/ L 1.78-5.38 qjqt=421) LYMPHOCYTES ABSOLUTE COUNT (BEAKER) (test 2.16 K/ L 1.32-3.57 ndgt=372) MONOCYTES ABSOLUTE COUNT (BEAKER) (test 0.84 K/ L 0.30-0.82 oktm=539) EOSINOPHILS ABSOLUTE COUNT (BEAKER) (test 0.39 K/ L 0.04-0.54 ejbc=903) BASOPHILS ABSOLUTE COUNT (BEAKER) (test 0.08 K/ L 0.01-0.08 kigk=344) IMMATURE GRANULOCYTES-RELATIVE PERCENT (BEAKER) 1 % 0-1 (test tunh=5643) U/S, RENAL, [id number] 02:06:00Reason for exam:->ckdShould this be performed at [...] advised to exclude infection. Signed: Eladio Gómez MDReport Verified Date/Time: 12/12/2018 02:06:07 Reading Location: [facility] B1 C013Y CT Body Reading Room [id number] 05:23:00 Test Item Value Reference Range Comments PHOSPHORUS (BEAKER) (test pkzc=960) 2.7 mg/dL 2.3-4.7 [id number] 05:23:00 Test Item Value Reference Range Comments MAGNESIUM (BEAKER) (test thwd=358) 2.1 mg/dL 1.6-2.6 BASIC METABOLIC [id number] 05:23:00 Test Item Value Reference Range Comments SODIUM (BEAKER) (test 140 meq/L 136-145 ekka=754) POTASSIUM (BEAKER) (test 3.4 meq/L 3.5-5.1 epwh=247) CHLORIDE (BEAKER) (test 111 meq/L 98-107 zuvb=853) CO2 (BEAKER) (test 24 meq/L 22-29 vfnr=200) BLOOD UREA NITROGEN 20 mg/dL 7-21 (BEAKER) (test nkiw=314) CREATININE (BEAKER) (test 1.29 mg/dL 0.57-1.25 ggcm=879) GLUCOSE RANDOM (BEAKER) 110 mg/dL 70-105 (test ovre=024) CALCIUM (BEAKER) (test 8.3 mg/dL 8.4-10.2 yuwg=454) EGFR (BEAKER) (test 56 mL/min/1.73 sq m ESTIMATED GFR IS NOT jcyg=9125) ACCURATE CREATININE CLEARANCE IN PREDICTING GLOMERULAR FILTRATION RATE. ESTIMATED GFR IS NOT APPLICABLE FOR DIALYSIS PATIENTS. CBC W/PLT COUNT & AUTO [id number] 05:00:00 Test Item Value Reference Range Comments WHITE BLOOD CELL COUNT (BEAKER) (test hrqe=131) 11.2 K/ L 3.5-10.5 RED BLOOD CELL COUNT (BEAKER) (test jusa=393) 2.70 M/ L 4.63-6.08 HEMOGLOBIN (BEAKER) (test fxvw=209) 8.6 GM/DL 13.7-17.5 HEMATOCRIT (BEAKER) (test gavo=145) 26.0 % 40.1-51.0 MEAN CORPUSCULAR VOLUME (BEAKER) (test xloq=260) 96.3 fL 79.0-92.2 MEAN CORPUSCULAR HEMOGLOBIN (BEAKER) (test 31.9 pg 25.7-32.2 bfnl=054) MEAN CORPUSCULAR HEMOGLOBIN CONC (BEAKER) (test 33.1 GM/DL 32.3-36.5 iypk=722) RED CELL DISTRIBUTION WIDTH (BEAKER) (test 14.8 % 11.6-14.4 whju=286) PLATELET COUNT (BEAKER) (test zuno=164) 180 K/CU MM 150-450 MEAN PLATELET VOLUME (BEAKER) (test xmca=276) 12.3 fL 9.4-12.4 NUCLEATED RED BLOOD CELLS (BEAKER) (test 0 /100 WBC 0-0 myzv=183) NEUTROPHILS RELATIVE PERCENT (BEAKER) (test 69 % uaau=718) LYMPHOCYTES RELATIVE PERCENT (BEAKER) (test 15 % cknp=985) MONOCYTES RELATIVE PERCENT (BEAKER) (test 9 % ipdf=807) EOSINOPHILS RELATIVE PERCENT (BEAKER) (test 5 % mqvq=683) BASOPHILS RELATIVE PERCENT (BEAKER) (test 0 % xiik=205) NEUTROPHILS ABSOLUTE COUNT (BEAKER) (test 7.74 K/ L 1.78-5.38 lwes=211) LYMPHOCYTES ABSOLUTE COUNT (BEAKER) (test 1.71 K/ L 1.32-3.57 ppiv=573) MONOCYTES ABSOLUTE COUNT (BEAKER) (test 1.01 K/ L 0.30-0.82 lrrj=323) EOSINOPHILS ABSOLUTE COUNT (BEAKER) (test 0.51 K/ L 0.04-0.54 xtnu=782) BASOPHILS ABSOLUTE COUNT (BEAKER) (test 0.05 K/ L 0.01-0.08 avbw=224) IMMATURE GRANULOCYTES-RELATIVE PERCENT (BEAKER) 2 % 0-1 (test xakf=2966) [id number] 05:42:00 Test Item Value Reference Range Comments PHOSPHORUS (BEAKER) (test mrnz=806) 2.9 mg/dL 2.3-4.7 [id number] 05:42:00 Test Item Value Reference Range Comments MAGNESIUM (BEAKER) (test njfr=698) 2.0 mg/dL 1.6-2.6 BASIC METABOLIC [id number] 05:42:00 Test Item Value Reference Range Comments SODIUM (BEAKER) (test 139 meq/L 136-145 bfzj=048) POTASSIUM (BEAKER) (test 3.8 meq/L 3.5-5.1 uaym=255) CHLORIDE (BEAKER) (test 109 meq/L 98-107 kbyh=819) CO2 (BEAKER) (test 24 meq/L 22-29 zuxk=279) BLOOD UREA NITROGEN 21 mg/dL 7-21 (BEAKER) (test zcjo=153) CREATININE (BEAKER) (test 1.35 mg/dL 0.57-1.25 tiwc=465) GLUCOSE RANDOM (BEAKER) 102 mg/dL 70-105 (test pfkz=224) CALCIUM (BEAKER) (test 8.6 mg/dL 8.4-10.2 tymx=761) EGFR (BEAKER) (test 53 mL/min/1.73 sq m ESTIMATED GFR IS NOT pdsc=4083) ACCURATE CREATININE CLEARANCE IN PREDICTING GLOMERULAR FILTRATION RATE. ESTIMATED GFR IS NOT APPLICABLE FOR DIALYSIS PATIENTS. CBC W/PLT COUNT & AUTO [id number] 05:18:00 Test Item Value Reference Range Comments WHITE BLOOD CELL COUNT (BEAKER) (test atbi=988) 10.9 K/ L 3.5-10.5 RED BLOOD CELL COUNT (BEAKER) (test gsyx=207) 2.80 M/ L 4.63-6.08 HEMOGLOBIN (BEAKER) (test xslx=301) 8.8 GM/DL 13.7-17.5 HEMATOCRIT (BEAKER) (test lppz=447) 27.1 % 40.1-51.0 MEAN CORPUSCULAR VOLUME (BEAKER) (test cbak=935) 96.8 fL 79.0-92.2 MEAN CORPUSCULAR HEMOGLOBIN (BEAKER) (test 31.4 pg 25.7-32.2 fgxj=549) MEAN CORPUSCULAR HEMOGLOBIN CONC (BEAKER) (test 32.5 GM/DL 32.3-36.5 xkln=590) RED CELL DISTRIBUTION WIDTH (BEAKER) (test 14.4 % 11.6-14.4 msrh=884) PLATELET COUNT (BEAKER) (test tijy=230) 171 K/CU MM 150-450 MEAN PLATELET VOLUME (BEAKER) (test bzgr=532) 11.7 fL 9.4-12.4 NUCLEATED RED BLOOD CELLS (BEAKER) (test 0 /100 WBC 0-0 kgqo=404) NEUTROPHILS RELATIVE PERCENT (BEAKER) (test 71 % jpou=252) LYMPHOCYTES RELATIVE PERCENT (BEAKER) (test 16 % tjjn=686) MONOCYTES RELATIVE PERCENT (BEAKER) (test 8 % zarj=960) EOSINOPHILS RELATIVE PERCENT (BEAKER) (test 4 % nepv=304) BASOPHILS RELATIVE PERCENT (BEAKER) (test 0 % bkjf=215) NEUTROPHILS ABSOLUTE COUNT (BEAKER) (test 7.66 K/ L 1.78-5.38 vqfr=912) LYMPHOCYTES ABSOLUTE COUNT (BEAKER) (test 1.78 K/ L 1.32-3.57 smdf=334) MONOCYTES ABSOLUTE COUNT (BEAKER) (test 0.83 K/ L 0.30-0.82 adgc=902) EOSINOPHILS ABSOLUTE COUNT (BEAKER) (test 0.44 K/ L 0.04-0.54 yqum=289) BASOPHILS ABSOLUTE COUNT (BEAKER) (test 0.04 K/ L 0.01-0.08 akwm=090) IMMATURE GRANULOCYTES-RELATIVE PERCENT (BEAKER) 1 % 0-1 (test zzqg=5727) RAD, CHEST, 1 VIEW, NON [id number] 10:12:00Reason for exam:->post operative cardiacShould this be [...] Camejo MDReport Verified Date/Time: 12/09/201810:12:03 Reading Location: [facility] Radiology Reading Room CBC W/PLT COUNT & AUTO [id number] 07:16:00 Test Item Value Reference Range Comments WHITE BLOOD CELL COUNT (BEAKER) (test gosz=547) 9.7 K/ L 3.5-10.5 RED BLOOD CELL COUNT (BEAKER) (test ctkc=182) 2.47 M/ L 4.63-6.08 HEMOGLOBIN (BEAKER) (test yknd=521) 7.8 GM/DL 13.7-17.5 HEMATOCRIT (BEAKER) (test jeiy=665) 23.9 % 40.1-51.0 MEAN CORPUSCULAR VOLUME (BEAKER) (test kqrj=329) 96.8 fL 79.0-92.2 MEAN CORPUSCULAR HEMOGLOBIN (BEAKER) (test 31.6 pg 25.7-32.2 cwbb=130) MEAN CORPUSCULAR HEMOGLOBIN CONC (BEAKER) (test 32.6 GM/DL 32.3-36.5 sron=682) RED CELL DISTRIBUTION WIDTH (BEAKER) (test 14.8 % 11.6-14.4 mvmo=573) PLATELET COUNT (BEAKER) (test phyd=864) 131 K/CU MM 150-450 MEAN PLATELET VOLUME (BEAKER) (test onlx=809) 12.0 fL 9.4-12.4 NUCLEATED RED BLOOD CELLS (BEAKER) (test 1 /100 WBC 0-0 qrbf=477) NEUTROPHILS RELATIVE PERCENT (BEAKER) (test 72 % lker=492) LYMPHOCYTES RELATIVE PERCENT (BEAKER) (test 17 % ofnl=421) MONOCYTES RELATIVE PERCENT (BEAKER) (test 8 % xcbe=311) EOSINOPHILS RELATIVE PERCENT (BEAKER) (test 2 % tgpd=999) BASOPHILS RELATIVE PERCENT (BEAKER) (test 0 % dulr=588) NEUTROPHILS ABSOLUTE COUNT (BEAKER) (test 6.97 K/ L 1.78-5.38 ihgu=666) LYMPHOCYTES ABSOLUTE COUNT (BEAKER) (test 1.67 K/ L 1.32-3.57 qadr=391) MONOCYTES ABSOLUTE COUNT (BEAKER) (test 0.75 K/ L 0.30-0.82 faxm=128) EOSINOPHILS ABSOLUTE COUNT (BEAKER) (test 0.19 K/ L 0.04-0.54 ptmq=830) BASOPHILS ABSOLUTE COUNT (BEAKER) (test 0.02 K/ L 0.01-0.08 xnjj=300) IMMATURE GRANULOCYTES-RELATIVE PERCENT (BEAKER) 1 % 0-1 (test bacj=4342) [id number] 07:10:00 Test Item Value Reference Range Comments PHOSPHORUS (BEAKER) (test oivf=898) 2.5 mg/dL 2.3-4.7 [id number] 07:10:00 Test Item Value Reference Range Comments MAGNESIUM (BEAKER) (test fuia=913) 2.1 mg/dL 1.6-2.6 BASIC METABOLIC [id number] 07:10:00 Test Item Value Reference Range Comments SODIUM (BEAKER) (test 140 meq/L 136-145 ycws=836) POTASSIUM (BEAKER) (test 3.6 meq/L 3.5-5.1 glrv=951) CHLORIDE (BEAKER) (test 110 meq/L 98-107 tetl=109) CO2 (BEAKER) (test 25 meq/L 22-29 abyp=748) BLOOD UREA NITROGEN 30 mg/dL 7-21 (BEAKER) (test xoqw=138) CREATININE (BEAKER) (test 1.47 mg/dL 0.57-1.25 ghke=460) GLUCOSE RANDOM (BEAKER) 101 mg/dL 70-105 (test ooul=698) CALCIUM (BEAKER) (test 8.4 mg/dL 8.4-10.2 nybc=352) EGFR (BEAKER) (test 48 mL/min/1.73 sq m ESTIMATED GFR IS NOT jdli=2127) ACCURATE CREATININE CLEARANCE IN PREDICTING GLOMERULAR FILTRATION RATE. ESTIMATED GFR IS NOT APPLICABLE FOR DIALYSIS PATIENTS. HEMOGLOBIN AND [id number] 19:10:00 Test Item Value Reference Range Comments HEMOGLOBIN (BEAKER) (test vtfw=598) 8.1 GM/DL 13.7-17.5 HEMATOCRIT (BEAKER) (test plwu=301) 24.8 % 40.1-51.0 RAD, CHEST, 1 VIEW, NON [id number] 07:39:00Reason for exam:->post operative cardiacShould this be [...] MDReport Verified Date/Time: 12/08/2018 07:39:23 Reading Location: [facility] Radiology Reading Room [id number] 05:54:00 Test Item Value Reference Range Comments PHOSPHORUS (BEAKER) (test jwmb=004) 2.7 mg/dL 2.3-4.7 BASIC METABOLIC [id number] 05:54:00 Test Item Value Reference Range Comments SODIUM (BEAKER) (test 140 meq/L 136-145 kwcp=476) POTASSIUM (BEAKER) (test 4.0 meq/L 3.5-5.1 mnrc=459) CHLORIDE (BEAKER) (test 110 meq/L 98-107 nmxk=820) CO2 (BEAKER) (test 24 meq/L 22-29 ffqz=875) BLOOD UREA NITROGEN 38 mg/dL 7-21 (BEAKER) (test kxhy=869) CREATININE (BEAKER) (test 1.70 mg/dL 0.57-1.25 myou=457) GLUCOSE RANDOM (BEAKER) 116 mg/dL 70-105 (test wnqr=424) CALCIUM (BEAKER) (test 8.8 mg/dL 8.4-10.2 ylsy=425) EGFR (BEAKER) (test 40 mL/min/1.73 sq m ESTIMATED GFR IS NOT kzxi=4693) ACCURATE CREATININE CLEARANCE IN PREDICTING GLOMERULAR FILTRATION RATE. ESTIMATED GFR IS NOT APPLICABLE FOR DIALYSIS PATIENTS. CBC W/PLT COUNT & AUTO [id number] 04:57:00 Test Item Value Reference Range Comments WHITE BLOOD CELL COUNT (BEAKER) (test cnlq=506) 12.8 K/ L 3.5-10.5 RED BLOOD CELL COUNT (BEAKER) (test jsek=063) 2.20 M/ L 4.63-6.08 HEMOGLOBIN (BEAKER) (test oakr=877) 7.0 GM/DL 13.7-17.5 HEMATOCRIT (BEAKER) (test dhtq=334) 21.4 % 40.1-51.0 MEAN CORPUSCULAR VOLUME (BEAKER) (test mnot=157) 97.3 fL 79.0-92.2 MEAN CORPUSCULAR HEMOGLOBIN (BEAKER) (test 31.8 pg 25.7-32.2 nhyj=322) MEAN CORPUSCULAR HEMOGLOBIN CONC (BEAKER) (test 32.7 GM/DL 32.3-36.5 wscd=289) RED CELL DISTRIBUTION WIDTH (BEAKER) (test 15.3 % 11.6-14.4 vqfv=072) PLATELET COUNT (BEAKER) (test serq=375) 131 K/CU MM 150-450 MEAN PLATELET VOLUME (BEAKER) (test huiq=365) 12.0 fL 9.4-12.4 NUCLEATED RED BLOOD CELLS (BEAKER) (test 1 /100 WBC 0-0 bklv=097) NEUTROPHILS RELATIVE PERCENT (BEAKER) (test 79 % fjdr=936) LYMPHOCYTES RELATIVE PERCENT (BEAKER) (test 12 % inlu=517) MONOCYTES RELATIVE PERCENT (BEAKER) (test 9 % dyej=225) EOSINOPHILS RELATIVE PERCENT (BEAKER) (test 0 % ujzp=838) BASOPHILS RELATIVE PERCENT (BEAKER) (test 0 % xfbo=177) NEUTROPHILS ABSOLUTE COUNT (BEAKER) (test 10.09 K/ L 1.78-5.38 acug=976) LYMPHOCYTES ABSOLUTE COUNT (BEAKER) (test 1.48 K/ L 1.32-3.57 kfvx=042) MONOCYTES ABSOLUTE COUNT (BEAKER) (test 1.10 K/ L 0.30-0.82 gudu=716) EOSINOPHILS ABSOLUTE COUNT (BEAKER) (test 0.01 K/ L 0.04-0.54 wikv=227) BASOPHILS ABSOLUTE COUNT (BEAKER) (test 0.01 K/ L 0.01-0.08 otxf=932) IMMATURE GRANULOCYTES-RELATIVE PERCENT (BEAKER) 1 % 0-1 (test lnky=5909) BASIC METABOLIC [id number] 12:27:00 Test Item Value Reference Range Comments SODIUM (BEAKER) (test 141 meq/L 136-145 cgjd=448) POTASSIUM (BEAKER) (test 4.2 meq/L 3.5-5.1 slfk=083) CHLORIDE (BEAKER) (test 110 meq/L 98-107 vkyz=112) CO2 (BEAKER) (test 25 meq/L 22-29 htgj=658) BLOOD UREA NITROGEN 34 mg/dL 7-21 (BEAKER) (test ebkc=079) CREATININE (BEAKER) (test 1.77 mg/dL 0.57-1.25 exdt=216) GLUCOSE RANDOM (BEAKER) 128 mg/dL 70-105 (test wcix=248) CALCIUM (BEAKER) (test 9.1 mg/dL 8.4-10.2 sicn=158) EGFR (BEAKER) (test 39 mL/min/1.73 sq m ESTIMATED GFR IS NOT wntu=1833) ACCURATE CREATININE CLEARANCE IN PREDICTING GLOMERULAR FILTRATION RATE. ESTIMATED GFR IS NOT APPLICABLE FOR DIALYSIS PATIENTS. HEMOGLOBIN AND [id number] 12:09:00 Test Item Value Reference Range Comments HEMOGLOBIN (BEAKER) (test xqkj=283) 7.3 GM/DL 13.7-17.5 HEMATOCRIT (BEAKER) (test wxlx=595) 23.0 % 40.1-51.0 [id number] 07:19:00 Test Item Value Reference Range Comments PHOSPHORUS (BEAKER) (test arem=670) 3.0 mg/dL 2.3-4.7 [id number] 07:19:00 Test Item Value Reference Range Comments MAGNESIUM (BEAKER) (test ehlz=490) 2.4 mg/dL 1.6-2.6 BASIC METABOLIC [id number] 07:19:00 Test Item Value Reference Range Comments SODIUM (BEAKER) (test 141 meq/L 136-145 hymh=993) POTASSIUM (BEAKER) (test 4.3 meq/L 3.5-5.1 uoul=680) CHLORIDE (BEAKER) (test 111 meq/L 98-107 ufnb=475) CO2 (BEAKER) (test 24 meq/L 22-29 cqaj=079) BLOOD UREA NITROGEN 33 mg/dL 7-21 (BEAKER) (test swax=876) CREATININE (BEAKER) (test 1.75 mg/dL 0.57-1.25 gjmd=374) GLUCOSE RANDOM (BEAKER) 119 mg/dL 70-105 (test evaq=788) CALCIUM (BEAKER) (test 8.7 mg/dL 8.4-10.2 wirr=909) EGFR (BEAKER) (test 39 mL/min/1.73 sq m ESTIMATED GFR IS NOT zriw=9495) ACCURATE CREATININE CLEARANCE IN PREDICTING GLOMERULAR FILTRATION RATE. ESTIMATED GFR IS NOT APPLICABLE FOR DIALYSIS PATIENTS. CBC (HEMOGRAM ONLY)2018-12-07 05:27:00 Test Item Value Reference Range Comments WHITE BLOOD CELL COUNT (BEAKER) (test qggi=442) 14.5 K/ L 3.5-10.5 RED BLOOD CELL COUNT (BEAKER) (test xnfo=886) 2.29 M/ L 4.63-6.08 HEMOGLOBIN (BEAKER) (test jvbh=774) 7.3 GM/DL 13.7-17.5 HEMATOCRIT (BEAKER) (test nyir=426) 22.2 % 40.1-51.0 MEAN CORPUSCULAR VOLUME (BEAKER) (test pigp=407) 96.9 fL 79.0-92.2 MEAN CORPUSCULAR HEMOGLOBIN (BEAKER) (test 31.9 pg 25.7-32.2 stwv=414) MEAN CORPUSCULAR HEMOGLOBIN CONC (BEAKER) (test 32.9 GM/DL 32.3-36.5 dfij=803) RED CELL DISTRIBUTION WIDTH (BEAKER) (test 15.2 % 11.6-14.4 nuti=590) PLATELET COUNT (BEAKER) (test hner=992) 159 K/CU MM 150-450 MEAN PLATELET VOLUME (BEAKER) (test ivqh=662) 11.9 fL 9.4-12.4 NUCLEATED RED BLOOD CELLS (BEAKER) (test 0 /100 WBC 0-0 xcqg=329) RAD, CHEST, 1 VIEW, NON [id number] 05:15:00Reason for exam:->post operative cardiacShould this be [...] Henriquez Verified Date/Time: 12/07/2018 05:15:09 Reading Location: [address] Transitional Reading Room BASIC METABOLIC [id number] 00:00:00 Test Item Value Reference Range Comments SODIUM (BEAKER) (test 141 meq/L 136-145 nrnf=916) POTASSIUM (BEAKER) (test 4.4 meq/L 3.5-5.1 zllo=459) CHLORIDE (BEAKER) (test 110 meq/L 98-107 rexs=273) CO2 (BEAKER) (test 22 meq/L 22-29 unnf=084) BLOOD UREA NITROGEN 32 mg/dL 7-21 (BEAKER) (test tmlf=517) CREATININE (BEAKER) (test 1.78 mg/dL 0.57-1.25 jxke=841) GLUCOSE RANDOM (BEAKER) 153 mg/dL 70-105 (test ftnb=727) CALCIUM (BEAKER) (test 8.9 mg/dL 8.4-10.2 vvph=407) EGFR (BEAKER) (test 38 mL/min/1.73 sq m ESTIMATED GFR IS NOT mjbq=1889) ACCURATE CREATININE CLEARANCE IN PREDICTING GLOMERULAR FILTRATION RATE. ESTIMATED GFR IS NOT APPLICABLE FOR DIALYSIS PATIENTS. HEMOGLOBIN AND [id number] 22:57:00 Test Item Value Reference Range Comments HEMOGLOBIN (BEAKER) (test stje=096) 6.9 GM/DL 13.7-17.5 HEMATOCRIT (BEAKER) (test tuzp=050) 21.1 % 40.1-51.0 BASIC METABOLIC [id number] 16:15:00 Test Item Value Reference Range Comments SODIUM (BEAKER) (test 140 meq/L 136-145 keeq=421) POTASSIUM (BEAKER) (test 5.0 meq/L 3.5-5.1 Specimen slightly gwbx=008) hemolyzed CHLORIDE (BEAKER) (test 110 meq/L 98-107 vexv=243) CO2 (BEAKER) (test 22 meq/L 22-29 recr=593) BLOOD UREA NITROGEN 30 mg/dL 7-21 (BEAKER) (test bhcu=020) CREATININE (BEAKER) (test 1.77 mg/dL 0.57-1.25 Specimen slightly gmyl=711) hemolyzed GLUCOSE RANDOM (BEAKER) 146 mg/dL 70-105 (test ighy=696) CALCIUM (BEAKER) (test 8.8 mg/dL 8.4-10.2 oyem=761) EGFR (BEAKER) (test 39 mL/min/1.73 sq m ESTIMATED GFR IS NOT ijam=3541) ACCURATE CREATININE CLEARANCE IN PREDICTING GLOMERULAR FILTRATION RATE. ESTIMATED GFR IS NOT APPLICABLE FOR DIALYSIS PATIENTS. HEMOGLOBIN AND [id number] 15:58:00 Test Item Value Reference Range Comments HEMOGLOBIN (BEAKER) (test wpyw=020) 7.2 GM/DL 13.7-17.5 HEMATOCRIT (BEAKER) (test owke=608) 22.0 % 40.1-51.0 PROTEIN ELECTROPHORESIS, [id number] 11:34:00 Test Item Value Reference Range Comments ALBUMIN FRACTION (BEAKER) 3.1 g/dL 3.5-5.5 (test hrwz=192) ALPHA 1 FRACTION (BEAKER) 0.2 g/dL 0.2-0.4 (test hxvh=801) ALPHA 2 FRACTION (BEAKER) 0.8 g/dL 0.5-0.9 (test ldws=996) BETA FRACTION (BEAKER) (test 0.8 g/dL 0.6-1.1 ronz=483) GAMMA GLOBULIN FRACTION 1.1 g/dL 0.7-1.7 (BEAKER) (test njwv=767) INTERPRETATION-119 (BEAKER) All fractions present in (test elgm=0851) expected distribution with slight decrease in serum albumin. No monoclonal bands detected. [id number] Terrie Rubio MD (BEAKER) (test toai=7323) (electronic signature) PROTEIN TOTAL SERUM, SPEP 6.1 gm/dL 6.0-8.3 (BEAKER) (test tmsr=1139) [id number] 10:57:00 Test Item Value Reference Range Comments POTASSIUM (BEAKER) (test 5.4 meq/L 3.5-5.1 Specimen slightly hemolyzed sduz=239) Every 8 hours PRN for Creatinine greater than or equal to 2 mg/dL.CBC W/PLT COUNT & AUTO [id number] 10:43:00 Test Item Value Reference Range Comments WHITE BLOOD CELL COUNT (BEAKER) (test kshk=097) 11.6 K/ L 3.5-10.5 RED BLOOD CELL COUNT (BEAKER) (test mkyl=271) 2.33 M/ L 4.63-6.08 HEMOGLOBIN (BEAKER) (test jxqh=929) 7.5 GM/DL 13.7-17.5 HEMATOCRIT (BEAKER) (test flph=671) 23.2 % 40.1-51.0 MEAN CORPUSCULAR VOLUME (BEAKER) (test nzqq=477) 99.6 fL 79.0-92.2 MEAN CORPUSCULAR HEMOGLOBIN (BEAKER) (test 32.2 pg 25.7-32.2 ihhj=838) MEAN CORPUSCULAR HEMOGLOBIN CONC (BEAKER) (test 32.3 GM/DL 32.3-36.5 arsp=918) RED CELL DISTRIBUTION WIDTH (BEAKER) (test 13.7 % 11.6-14.4 epnq=769) PLATELET COUNT (BEAKER) (test vuqq=543) 203 K/CU MM 150-450 MEAN PLATELET VOLUME (BEAKER) (test erlt=458) 11.8 fL 9.4-12.4 NUCLEATED RED BLOOD CELLS (BEAKER) (test 0 /100 WBC 0-0 lsjv=517) NEUTROPHILS RELATIVE PERCENT (BEAKER) (test 85 % kzdt=075) LYMPHOCYTES RELATIVE PERCENT (BEAKER) (test 8 % hwyn=959) MONOCYTES RELATIVE PERCENT (BEAKER) (test 6 % epau=209) EOSINOPHILS RELATIVE PERCENT (BEAKER) (test 0 % dldq=005) BASOPHILS RELATIVE PERCENT (BEAKER) (test 0 % ymsq=038) NEUTROPHILS ABSOLUTE COUNT (BEAKER) (test 9.92 K/ L 1.78-5.38 uaqh=369) LYMPHOCYTES ABSOLUTE COUNT (BEAKER) (test 0.95 K/ L 1.32-3.57 aqkj=835) MONOCYTES ABSOLUTE COUNT (BEAKER) (test 0.68 K/ L 0.30-0.82 cljx=527) EOSINOPHILS ABSOLUTE COUNT (BEAKER) (test 0.00 K/ L 0.04-0.54 swjv=823) BASOPHILS ABSOLUTE COUNT (BEAKER) (test 0.01 K/ L 0.01-0.08 mqvg=961) IMMATURE GRANULOCYTES-RELATIVE PERCENT (BEAKER) 1 % 0-1 (test suck=7905) RAD, CHEST, 1 VIEW, NON [id number] 08:09:00Reason for exam:->post operative cardiacShould this be [...] MDReport Verified Date/Time: 12/06/2018 08:09:04 Reading Location: [facility] [id number] Ortho Consult ReadingRoom POTASSIUM-STAT [id number] 06:31:00 Test Item Value Reference Range Comments POTASSIUM (BEAKER) (test cont=585) 4.9 meq/L 3.6-5.5 BLOOD GAS, [id number] 06:20:00 Test Item Value Reference Range Comments PH ARTERIAL (BEAKER) (test zgoy=618) 7.40 7.35-7.45 PCO2 ARTERIAL (BEAKER) (test hufw=567) 37 mmHg 35-45 PO2 ARTERIAL (BEAKER) (test ywtn=623) 78 mmHg 80-90 O2 SATURATION ARTERIAL (BEAKER) (test hshj=316) 95.7 % 96.0-97.0 HCO3 ARTERIAL (BEAKER) (test fkva=052) 22 mmol/L 21-29 BASE EXCESS ARTERIAL (BEAKER) (test olyh=566) -2.4 mmol/L -2.0-3.0 PATIENT TEMPERATURE (BEAKER) (test lrrl=1092) 36.8 C FIO2 (BEAKER) (test srbw=7795) 21.0 % [id number] 06:11:00 Test Item Value Reference Range Comments PHOSPHORUS (BEAKER) (test pddy=783) 4.3 mg/dL 2.3-4.7 [id number] 06:11:00 Test Item Value Reference Range Comments MAGNESIUM (BEAKER) (test ymvy=338) 2.3 mg/dL 1.6-2.6 BASIC METABOLIC [id number] 06:11:00 Test Item Value Reference Range Comments SODIUM (BEAKER) (test 140 meq/L 136-145 sgxo=246) POTASSIUM (BEAKER) (test 5.6 meq/L 3.5-5.1 zhay=248) CHLORIDE (BEAKER) (test 111 meq/L 98-107 ejpg=069) CO2 (BEAKER) (test 21 meq/L 22-29 qwmu=211) BLOOD UREA NITROGEN 25 mg/dL 7-21 (BEAKER) (test bsld=446) CREATININE (BEAKER) (test 1.74 mg/dL 0.57-1.25 utcd=450) GLUCOSE RANDOM (BEAKER) 171 mg/dL 70-105 (test vpms=470) CALCIUM (BEAKER) (test 8.8 mg/dL 8.4-10.2 slqc=718) EGFR (BEAKER) (test 39 mL/min/1.73 sq m ESTIMATED GFR IS NOT rmtf=7452) ACCURATE CREATININE CLEARANCE IN PREDICTING GLOMERULAR FILTRATION RATE. ESTIMATED GFR IS NOT APPLICABLE FOR DIALYSIS PATIENTS. CBC (HEMOGRAM ONLY)2018-12-06 05:01:00 Test Item Value Reference Range Comments WHITE BLOOD CELL COUNT (BEAKER) (test efki=542) 11.6 K/ L 3.5-10.5 RED BLOOD CELL COUNT (BEAKER) (test ogrm=817) 2.45 M/ L 4.63-6.08 HEMOGLOBIN (BEAKER) (test pmqu=312) 7.7 GM/DL 13.7-17.5 HEMATOCRIT (BEAKER) (test bgsz=162) 24.5 % 40.1-51.0 MEAN CORPUSCULAR VOLUME (BEAKER) (test ngsv=444) 100.0 fL 79.0-92.2 MEAN CORPUSCULAR HEMOGLOBIN (BEAKER) (test 31.4 pg 25.7-32.2 ntof=127) MEAN CORPUSCULAR HEMOGLOBIN CONC (BEAKER) (test 31.4 GM/DL 32.3-36.5 jmjv=839) RED CELL DISTRIBUTION WIDTH (BEAKER) (test 13.7 % 11.6-14.4 cfpo=372) PLATELET COUNT (BEAKER) (test auvn=959) 203 K/CU MM 150-450 MEAN PLATELET VOLUME (BEAKER) (test yfgu=618) 11.2 fL 9.4-12.4 NUCLEATED RED BLOOD CELLS (BEAKER) (test 0 /100 WBC 0-0 apwn=228) PLATELET [id number] 04:57:00 Test Item Value Reference Range Comments PLATELET COUNT (BEAKER) (test xcje=512) 203 K/CU MM 150-450 RAD, CHEST, 1 VIEW, NON [id number] 00:32:00Reason for exam:->chest tubesFINAL REPORT EXAMINATION: AP [...] MDReport Verified Date/Time: 12/06/2018 00:32:25 Reading Location: [address] Reading Room Electronically signedby: OSMEL MCCANN M.D. on 12/06/2018 12:32 [id number] 23:36:00 Test Item Value Reference Range Comments PROTIME (BEAKER) (test xiin=699) 16.6 seconds 11.7-14.7 INR (BEAKER) (test ejvb=747) 1.3 <=5.9 PARTIAL THROMBOPLASTIN TIME (BEAKER) (test 32.4 seconds 22.5-36.0 csdp=838) RECOMMENDED COUMADIN/WARFARIN INR THERAPY RANGESSTANDARD DOSE: 2.0 - 3.0 Includes: PROPHYLAXIS forvenous thrombosis, systemic embolization; TREATMENT for venous thrombosis and/or pulmonary embolus.HIGH RISK: Target INR is 2.5-3.5 for patients with mechanical heart valves.[id number] 23:35:00 Test Item Value Reference Range Comments FIBRINOGEN LEVEL (BEAKER) (test xcfc=800) 340 mg/dl 225-434 CBC W/PLT COUNT & AUTO [id number] 23:15:00 Test Item Value Reference Range Comments WHITE BLOOD CELL COUNT (BEAKER) (test qylg=039) 11.8 K/ L 3.5-10.5 RED BLOOD CELL COUNT (BEAKER) (test zxul=010) 2.69 M/ L 4.63-6.08 HEMOGLOBIN (BEAKER) (test avfa=275) 8.6 GM/DL 13.7-17.5 HEMATOCRIT (BEAKER) (test rvkd=662) 26.4 % 40.1-51.0 MEAN CORPUSCULAR VOLUME (BEAKER) (test ejcp=346) 98.1 fL 79.0-92.2 MEAN CORPUSCULAR HEMOGLOBIN (BEAKER) (test 32.0 pg 25.7-32.2 uguh=808) MEAN CORPUSCULAR HEMOGLOBIN CONC (BEAKER) (test 32.6 GM/DL 32.3-36.5 nell=458) RED CELL DISTRIBUTION WIDTH (BEAKER) (test 13.4 % 11.6-14.4 thds=846) PLATELET COUNT (BEAKER) (test kiuv=392) 160 K/CU MM 150-450 MEAN PLATELET VOLUME (BEAKER) (test inre=584) 11.1 fL 9.4-12.4 NUCLEATED RED BLOOD CELLS (BEAKER) (test 0 /100 WBC 0-0 byae=084) NEUTROPHILS RELATIVE PERCENT (BEAKER) (test 87 % chtv=576) LYMPHOCYTES RELATIVE PERCENT (BEAKER) (test 5 % zsfp=288) MONOCYTES RELATIVE PERCENT (BEAKER) (test 6 % fbmg=625) EOSINOPHILS RELATIVE PERCENT (BEAKER) (test 0 % thmj=479) BASOPHILS RELATIVE PERCENT (BEAKER) (test 0 % wabz=814) NEUTROPHILS ABSOLUTE COUNT (BEAKER) (test 10.30 K/ L 1.78-5.38 jhiw=449) LYMPHOCYTES ABSOLUTE COUNT (BEAKER) (test 0.64 K/ L 1.32-3.57 dqgj=285) MONOCYTES ABSOLUTE COUNT (BEAKER) (test 0.75 K/ L 0.30-0.82 peji=925) EOSINOPHILS ABSOLUTE COUNT (BEAKER) (test 0.00 K/ L 0.04-0.54 jcoz=209) BASOPHILS ABSOLUTE COUNT (BEAKER) (test 0.03 K/ L 0.01-0.08 duak=615) IMMATURE GRANULOCYTES-RELATIVE PERCENT (BEAKER) 1 % 0-1 (test bcml=0747) BLOOD GAS, [id number] 23:13:00 Test Item Value Reference Range Comments PH ARTERIAL (BEAKER) (test blyu=200) 7.38 7.35-7.45 PCO2 ARTERIAL (BEAKER) (test nzju=159) 37 mmHg 35-45 PO2 ARTERIAL (BEAKER) (test nfmk=871) 165 mmHg 80-90 O2 SATURATION ARTERIAL (BEAKER) (test ipey=356) 99.1 % 96.0-97.0 HCO3 ARTERIAL (BEAKER) (test spmq=230) 21 mmol/L 21-29 BASE EXCESS ARTERIAL (BEAKER) (test zrfk=529) -3.2 mmol/L -2.0-3.0 PATIENT TEMPERATURE (BEAKER) (test nyey=2997) 37.2 C FIO2 (BEAKER) (test ddlv=6061) 36.0 % GLUCOSE-STAT [id number] 23:13:00 Test Item Value Reference Range Comments GLUCOSE RANDOM (BEAKER) (test ythx=972) 172 mg/dL 70-110 HGB/HCT (H&H) - STAT [id number] 23:13:00 Test Item Value Reference Range Comments HEMOGLOBIN (BEAKER) (test rjgv=430) 9.1 g/dL 13.0-16.8 HEMATOCRIT (BEAKER) (test wels=404) 27.0 % 40.0-50.0 SODIUM NA-STAT [id number] 23:09:00 Test Item Value Reference Range Comments SODIUM (BEAKER) (test yqlq=064) 136 meq/L 135-148 POTASSIUM-STAT [id number] 23:09:00 Test Item Value Reference Range Comments POTASSIUM (BEAKER) (test wfnz=464) 5.0 meq/L 3.6-5.5 RAD, CHEST, 1 VIEW, NON [id number] 22:57:00while patient is intubated or has chest [...] Griffith Verified Date/Time: 2018 22:57:32 Reading Location: [facility] C013W Consult Reading Room [id number] 22:51:00 Test Item Value Reference Range Comments ACTIVATED CLOTTING TIME 120 sec TESTED AT [facility] [address] (BEAKER) (test vzro=050) [place] [address] [id number] 22:51:00 Test Item Value Reference Range Comments ACTIVATED CLOTTING TIME 521 sec TESTED AT [place] [address] [address] (BEAKER) (test cqtl=627) [place] [address] [id number] 22:51:00 Test Item Value Reference Range Comments ACTIVATED CLOTTING TIME 527 sec TESTED AT [place] [address] [address] (BEAKER) (test yone=993) [place] [address] [id number] 22:51:00 Test Item Value Reference Range Comments ACTIVATED CLOTTING TIME 483 sec TESTED AT [place] [address] [facility] (test aklh=727) [place] [address] [id number] 22:51:00 Test Item Value Reference Range Comments ACTIVATED CLOTTING TIME 483 sec TESTED AT [address] (BEAKER) (test kanz=404) [place] [address] [id number] 22:51:00 Test Item Value Reference Range Comments ACTIVATED CLOTTING TIME 698 [address] (BEAKER[address] (test wsty=449) [place] [address] [id number] 22:51:00 Test Item Value Reference Range Comments ACTIVATED CLOTTING TIME 439 sec TESTED AT [address] (BEAKER) (test eilr=197) [place] [address] BLOOD GAS, [id number] 21:49:00 Test Item Value Reference Range Comments PH ARTERIAL (BEAKER) (test srnq=434) 7.41 7.35-7.45 PCO2 ARTERIAL (BEAKER) (test epdl=602) 36 mmHg 35-45 PO2 ARTERIAL (BEAKER) (test kqrn=239) 157 mmHg 80-90 O2 SATURATION ARTERIAL (BEAKER) (test pwah=192) 99.1 % 96.0-97.0 HCO3 ARTERIAL (BEAKER) (test byvt=346) 22 mmol/L 21-29 BASE EXCESS ARTERIAL (BEAKER) (test hdoq=007) -2.1 mmol/L -2.0-3.0 PATIENT TEMPERATURE (BEAKER) (test daxd=7445) 36.7 C FIO2 (BEAKER) (test ijvi=3121) 40.0 % CALCIUM, [id number] 19:50:00 Test Item Value Reference Range Comments CALCIUM IONIZED (BEAKER) (test bbti=376) 1.11 mmol/L 1.12-1.27 PH, BLOOD (BEAKER) (test pgci=0390) 7.51 HGB/HCT (H&H) - STAT [id number] 19:50:00 Test Item Value Reference Range Comments HEMOGLOBIN (BEAKER) (test mpwb=247) 9.3 g/dL 13.0-16.8 HEMATOCRIT (BEAKER) (test llzr=755) 27.0 % 40.0-50.0 THROMBOELASTOGRAPH (TEG)2018-12-05 18:56:00 Test Item Value Reference Range Comments TEG ACTIVATED CLOTTING TIME (BEAKER) (test 13.0 minutes 4.0-7.0 thav=8406) TEG FIBRINOGEN ACTIVITY (BEAKER) (test 55.7 degrees 61.0-73.0 kpjg=1806) TEG PLT. AGGREGATION (BEAKER) (test fijc=4698) 57.3 MM 55.0-65.0 TEG FIBRINOLYSIS (BEAKER) (test ythm=1353) 0.0 % 0.0-5.0 [facility] ACTIVATED CLOTTING TIME (BEAKER) (test 7.2 minutes 4.0-7.0 cxqy=0588) [facility] FIBRINOGEN ACTIVITY (BEAKER) (test 71.5 degrees 61.0-73.0 pofi=3576) [facility] PLT. AGGREGATION (BEAKER) (test jxba=9811) 56.9 MM 55.0-65.0 [facility] FIBRINOLYSIS (BEAKER) (test pipu=2987) 0.0 % 0.0-5.0 [id number] 17:58:00 Test Item Value Reference Range Comments PROTIME (BEAKER) (test gjph=699) 16.5 seconds 11.7-14.7 INR (BEAKER) (test omla=749) 1.3 <=5.9 PARTIAL THROMBOPLASTIN TIME (BEAKER) (test 44.1 seconds 22.5-36.0 aabc=308) RECOMMENDED COUMADIN/WARFARIN INR THERAPY RANGESSTANDARD DOSE: 2.0 - 3.0 Includes: PROPHYLAXIS forvenous thrombosis, systemic embolization; TREATMENT for venous thrombosis and/or pulmonary embolus.HIGH RISK: Target INR is 2.5-3.5 for patients with mechanical heart valves.PROTHROMBIN [id number] 17:57: 00 Test Item Value Reference Range Comments PROTIME (BEAKER) (test zovl=107) 16.5 seconds 11.7-14.7 INR (BEAKER) (test rvkn=187) 1.3 <=5.9 RECOMMENDED COUMADIN/WARFARIN INR THERAPY RANGESSTANDARD DOSE: 2.0 - 3.0 Includes: PROPHYLAXIS forvenous thrombosis, systemic embolization; TREATMENT for venous thrombosis and/or pulmonary embolus.HIGH RISK: Target INR is 2.5-3.5 for patients with mechanical heart valves.[id number] 17:57:00 Test Item Value Reference Range Comments FIBRINOGEN LEVEL (BEAKER) (test phys=829) 347 mg/dl 225-434 [id number] 17:27:00 Test Item Value Reference Range Comments PHOSPHORUS (BEAKER) (test iqep=160) 3.3 mg/dL 2.3-4.7 [id number] 17:27:00 Test Item Value Reference Range Comments MAGNESIUM (BEAKER) (test hldi=418) 2.6 mg/dL 1.6-2.6 BASIC METABOLIC [id number] 17:27:00 Test Item Value Reference Range Comments SODIUM (BEAKER) (test 141 meq/L 136-145 emkx=375) POTASSIUM (BEAKER) (test 4.1 meq/L 3.5-5.1 jwvg=905) CHLORIDE (BEAKER) (test 111 meq/L 98-107 ghwh=840) CO2 (BEAKER) (test 22 meq/L 22-29 mhep=667) BLOOD UREA NITROGEN 20 mg/dL 7-21 (BEAKER) (test binx=523) CREATININE (BEAKER) (test 1.55 mg/dL 0.57-1.25 mocu=089) GLUCOSE RANDOM (BEAKER) 140 mg/dL 70-105 (test malj=890) CALCIUM (BEAKER) (test 9.1 mg/dL 8.4-10.2 towe=009) EGFR (BEAKER) (test 45 mL/min/1.73 sq m ESTIMATED GFR IS NOT ctzf=6679) ACCURATE CREATININE CLEARANCE IN PREDICTING GLOMERULAR FILTRATION RATE. ESTIMATED GFR IS NOT APPLICABLE FOR DIALYSIS PATIENTS. LACTIC ACID, [id number] 17:21:00 Test Item Value Reference Range Comments LACTATE BLOOD ARTERIAL (2) (BEAKER) (test 1.9 mmol/L 0.5-2.2 kagb=9765) OXYGEN SATURATION, [id number] 17:10:00 Test Item Value Reference Range Comments O2 SATURATION (MEASURED) (BEAKER) (test ylor=1904) 81.3 % CBC W/PLT COUNT & AUTO [id number] 17:07:00 Test Item Value Reference Range Comments WHITE BLOOD CELL COUNT (BEAKER) (test vucj=446) 12.6 K/ L 3.5-10.5 RED BLOOD CELL COUNT (BEAKER) (test pwxt=309) 2.99 M/ L 4.63-6.08 HEMOGLOBIN (BEAKER) (test hhxe=415) 9.8 GM/DL 13.7-17.5 HEMATOCRIT (BEAKER) (test wszp=570) 29.4 % 40.1-51.0 MEAN CORPUSCULAR VOLUME (BEAKER) (test fekg=194) 98.3 fL 79.0-92.2 MEAN CORPUSCULAR HEMOGLOBIN (BEAKER) (test 32.8 pg 25.7-32.2 sgey=541) MEAN CORPUSCULAR HEMOGLOBIN CONC (BEAKER) (test 33.3 GM/DL 32.3-36.5 jrso=924) RED CELL DISTRIBUTION WIDTH (BEAKER) (test 13.3 % 11.6-14.4 hodu=231) PLATELET COUNT (BEAKER) (test aqza=587) 143 K/CU MM 150-450 MEAN PLATELET VOLUME (BEAKER) (test dgdz=381) 11.2 fL 9.4-12.4 NUCLEATED RED BLOOD CELLS (BEAKER) (test 0 /100 WBC 0-0 qacu=102) NEUTROPHILS RELATIVE PERCENT (BEAKER) (test 85 % fjuq=052) LYMPHOCYTES RELATIVE PERCENT (BEAKER) (test 7 % ujsj=508) MONOCYTES RELATIVE PERCENT (BEAKER) (test 6 % vefj=816) EOSINOPHILS RELATIVE PERCENT (BEAKER) (test 0 % tape=703) BASOPHILS RELATIVE PERCENT (BEAKER) (test 0 % aisg=598) NEUTROPHILS ABSOLUTE COUNT (BEAKER) (test 10.74 K/ L 1.78-5.38 lbyx=742) LYMPHOCYTES ABSOLUTE COUNT (BEAKER) (test 0.93 K/ L 1.32-3.57 szie=320) MONOCYTES ABSOLUTE COUNT (BEAKER) (test 0.81 K/ L 0.30-0.82 kzwn=726) EOSINOPHILS ABSOLUTE COUNT (BEAKER) (test 0.05 K/ L 0.04-0.54 pihi=706) BASOPHILS ABSOLUTE COUNT (BEAKER) (test 0.05 K/ L 0.01-0.08 yuuy=860) IMMATURE GRANULOCYTES-RELATIVE PERCENT (BEAKER) 0 % 0-1 (test bukt=8290) SODIUM NA-STAT [id number] 17:05:00 Test Item Value Reference Range Comments SODIUM (BEAKER) (test kykq=319) 138 meq/L 135-148 POTASSIUM-STAT [id number] 17:05:00 Test Item Value Reference Range Comments POTASSIUM (BEAKER) (test vemp=019) 3.9 meq/L 3.6-5.5 BLOOD GAS, [id number] 17:05:00 Test Item Value Reference Range Comments PH ARTERIAL (BEAKER) (test liqq=375) 7.44 7.35-7.45 PCO2 ARTERIAL (BEAKER) (test nvnb=057) 35 mmHg 35-45 PO2 ARTERIAL (BEAKER) (test ymik=593) 294 mmHg 80-90 O2 SATURATION ARTERIAL (BEAKER) (test mtqc=046) 99.7 % 96.0-97.0 HCO3 ARTERIAL (BEAKER) (test iupl=203) 23 mmol/L 21-29 BASE EXCESS ARTERIAL (BEAKER) (test iduf=148) -1.3 mmol/L -2.0-3.0 PATIENT TEMPERATURE (BEAKER) (test zfmu=9329) 34.6 C FIO2 (BEAKER) (test xiqe=7749) 80.0 % GLUCOSE-STAT [id number] 17:05:00 Test Item Value Reference Range Comments GLUCOSE RANDOM (BEAKER) (test axao=637) 140 mg/dL 70-110 HGB/HCT (H&H) - STAT [id number] 17:05:00 Test Item Value Reference Range Comments HEMOGLOBIN (BEAKER) (test rmsz=248) 10.1 g/dL 13.0-16.8 HEMATOCRIT (BEAKER) (test wozj=726) 30.0 % 40.0-50.0 THROMBOELASTOGRAPH (TEG)2018-12-05 15:43:00 Test Item Value Reference Range Comments TEG ACTIVATED CLOTTING TIME (BEAKER) (test 4.8 minutes 4.0-7.0 jqaf=3013) TEG FIBRINOGEN ACTIVITY (BEAKER) (test 73.0 degrees 61.0-73.0 ugpz=8345) TEG PLT. AGGREGATION (BEAKER) (test ftfc=3080) 63.4 MM 55.0-65.0 TGH ACTIVATED CLOTTING TIME (BEAKER) (test 4.9 minutes 4.0-7.0 egrz=9355) T[facility] FIBRINOGEN ACTIVITY (BEAKER) (test 73.1 degrees 61.0-73.0 ywkf=4513) TGH PLT. AGGREGATION (BEAKER) (test pazw=7570) 63.7 MM 55.0-65.0 [id number] 14:59:00 Test Item Value Reference Range Comments FIBRINOGEN LEVEL (BEAKER) (test uzqt=849) 368 mg/dl 225-434 [id number] 14:59:00 Test Item Value Reference Range Comments PROTIME (BEAKER) (test juwd=764) 17.1 seconds 11.7-14.7 INR (BEAKER) (test vtkv=732) 1.4 <=5.9 PARTIAL THROMBOPLASTIN TIME (BEAKER) (test 27.8 seconds 22.5-36.0 sumn=355) RECOMMENDED COUMADIN/WARFARIN INR THERAPY RANGESSTANDARD DOSE: 2.0 - 3.0 Includes: PROPHYLAXIS forvenous thrombosis, systemic embolization; TREATMENT for venous thrombosis and/or pulmonary embolus.HIGH RISK: Target INR is 2.5-3.5 for patients with mechanical heart valves.CBC (HEMOGRAM ONLY)2018-12-05 14:51:00 Test Item Value Reference Range Comments WHITE BLOOD CELL COUNT (BEAKER) (test cyub=483) 15.7 K/ L 3.5-10.5 RED BLOOD CELL COUNT (BEAKER) (test uwbn=297) 3.11 M/ L 4.63-6.08 HEMOGLOBIN (BEAKER) (test ptjq=895) 10.0 GM/DL 13.7-17.5 HEMATOCRIT (BEAKER) (test ohaf=491) 30.7 % 40.1-51.0 MEAN CORPUSCULAR VOLUME (BEAKER) (test uagv=776) 98.7 fL 79.0-92.2 MEAN CORPUSCULAR HEMOGLOBIN (BEAKER) (test 32.2 pg 25.7-32.2 lhts=686) MEAN CORPUSCULAR HEMOGLOBIN CONC (BEAKER) (test 32.6 GM/DL 32.3-36.5 wgxv=849) RED CELL DISTRIBUTION WIDTH (BEAKER) (test 13.2 % 11.6-14.4 lahu=886) PLATELET COUNT (BEAKER) (test tcfq=873) 111 K/CU MM 150-450 MEAN PLATELET VOLUME (BEAKER) (test fmhw=100) 11.8 fL 9.4-12.4 NUCLEATED RED BLOOD CELLS (BEAKER) (test 0 /100 WBC 0-0 mtpu=068) BLOOD GAS, [id number] 14:15:00 Test Item Value Reference Range Comments PH ARTERIAL (BEAKER) (test ybli=138) 7.37 7.35-7.45 PCO2 ARTERIAL (BEAKER) (test ivlv=453) 45 mmHg 35-45 PO2 ARTERIAL (BEAKER) (test ldcv=188) 196 mmHg 80-90 O2 SATURATION ARTERIAL (BEAKER) (test hrmx=800) 99.3 % 96.0-97.0 HCO3 ARTERIAL (BEAKER) (test lzvs=235) 26 mmol/L 21-29 BASE EXCESS ARTERIAL (BEAKER) (test zmcd=690) 0.1 mmol/L -2.0-3.0 PATIENT TEMPERATURE (BEAKER) (test felo=0481) 35.8 C FIO2 (BEAKER) (test guxm=3688) 95.0 % GLUCOSE-STAT [id number] 14:15:00 Test Item Value Reference Range Comments GLUCOSE RANDOM (BEAKER) (test cgrh=011) 196 mg/dL 70-110 HGB/HCT (H&H) - STAT [id number] 14:15:00 Test Item Value Reference Range Comments HEMOGLOBIN (BEAKER) (test nqcn=176) 9.9 g/dL 13.0-16.8 HEMATOCRIT (BEAKER) (test gaha=468) 29.0 % 40.0-50.0 SODIUM NA-STAT [id number] 14:13:00 Test Item Value Reference Range Comments SODIUM (BEAKER) (test apuo=641) 136 meq/L 135-148 POTASSIUM-STAT [id number] 14:13:00 Test Item Value Reference Range Comments POTASSIUM (BEAKER) (test rkeq=430) 4.9 meq/L 3.6-5.5 BLOOD GAS, [id number] 13:59:00 Test Item Value Reference Range Comments PH ARTERIAL (BEAKER) (test tcen=177) 7.38 7.35-7.45 PCO2 ARTERIAL (BEAKER) (test djuu=557) 45 mmHg 35-45 PO2 ARTERIAL (BEAKER) (test dseb=556) 317 mmHg 80-90 O2 SATURATION ARTERIAL (BEAKER) (test xqjq=139) 99.7 % 96.0-97.0 HCO3 ARTERIAL (BEAKER) (test yyyz=560) 26 mmol/L 21-29 BASE EXCESS ARTERIAL (BEAKER) (test iiiw=880) 0.8 mmol/L -2.0-3.0 PATIENT TEMPERATURE (BEAKER) (test iuvf=7952) 36.7 C FIO2 (BEAKER) (test pkri=0771) 90.0 % POTASSIUM-STAT [id number] 13:59:00 Test Item Value Reference Range Comments POTASSIUM (BEAKER) (test wckw=621) 5.7 meq/L 3.6-5.5 GLUCOSE-STAT [id number] 13:59:00 Test Item Value Reference Range Comments GLUCOSE RANDOM (BEAKER) (test goqs=965) 221 mg/dL 70-110 HGB/HCT (H&H) - STAT [id number] 13:59:00 Test Item Value Reference Range Comments HEMOGLOBIN (BEAKER) (test pkss=144) 10.2 g/dL 13.0-16.8 HEMATOCRIT (BEAKER) (test jlha=831) 30.0 % 40.0-50.0 SODIUM NA-STAT [id number] 13:44:00 Test Item Value Reference Range Comments SODIUM (BEAKER) (test mefo=855) 135 meq/L 135-148 BLOOD GAS, [id number] 13:11:00 Test Item Value Reference Range Comments PH ARTERIAL (BEAKER) (test jnbq=193) 7.41 7.35-7.45 PCO2 ARTERIAL (BEAKER) (test myhs=319) 37 mmHg 35-45 PO2 ARTERIAL (BEAKER) (test sedo=024) 310 mmHg 80-90 O2 SATURATION ARTERIAL (BEAKER) (test nknm=502) 99.7 % 96.0-97.0 HCO3 ARTERIAL (BEAKER) (test iymh=238) 24 mmol/L 21-29 BASE EXCESS ARTERIAL (BEAKER) (test qntf=036) -1.5 mmol/L -2.0-3.0 PATIENT TEMPERATURE (BEAKER) (test rwvg=4851) 32.7 C FIO2 (BEAKER) (test zcue=8858) 70.0 % GLUCOSE-STAT [id number] 13:11:00 Test Item Value Reference Range Comments GLUCOSE RANDOM (BEAKER) (test xufp=670) 218 mg/dL 70-110 HGB/HCT (H&H) - STAT [id number] 13:11:00 Test Item Value Reference Range Comments HEMOGLOBIN (BEAKER) (test twvj=799) 9.9 g/dL 13.0-16.8 HEMATOCRIT (BEAKER) (test pqco=165) 29.0 % 40.0-50.0 SODIUM NA-STAT [id number] 13:09:00 Test Item Value Reference Range Comments SODIUM (BEAKER) (test pusx=053) 135 meq/L 135-148 POTASSIUM-STAT [id number] 13:09:00 Test Item Value Reference Range Comments POTASSIUM (BEAKER) (test mkrf=016) 5.3 meq/L 3.6-5.5 BLOOD GAS, [id number] 12:50:00 Test Item Value Reference Range Comments PH ARTERIAL (BEAKER) (test qfxb=758) 7.44 7.35-7.45 PCO2 ARTERIAL (BEAKER) (test eqvi=638) 36 mmHg 35-45 PO2 ARTERIAL (BEAKER) (test hita=311) 278 mmHg 80-90 O2 SATURATION ARTERIAL (BEAKER) (test jbsy=400) 99.7 % 96.0-97.0 HCO3 ARTERIAL (BEAKER) (test dyeb=033) 25 mmol/L 21-29 BASE EXCESS ARTERIAL (BEAKER) (test mzvw=096) -0.7 mmol/L -2.0-3.0 PATIENT TEMPERATURE (BEAKER) (test yurn=0509) 30.2 C FIO2 (BEAKER) (test wlxr=0100) 65.0 % GLUCOSE-STAT [id number] 12:50:00 Test Item Value Reference Range Comments GLUCOSE RANDOM (BEAKER) (test vwpl=416) 208 mg/dL 70-110 HGB/HCT (H&H) - STAT [id number] 12:50:00 Test Item Value Reference Range Comments HEMOGLOBIN (BEAKER) (test ujjv=276) 9.7 g/dL 13.0-16.8 HEMATOCRIT (BEAKER) (test mjhf=642) 29.0 % 40.0-50.0 SODIUM NA-STAT [id number] 12:49:00 Test Item Value Reference Range Comments SODIUM (BEAKER) (test nvjp=447) 135 meq/L 135-148 POTASSIUM-STAT [id number] 12:49:00 Test Item Value Reference Range Comments POTASSIUM (BEAKER) (test rzhh=126) 5.1 meq/L 3.6-5.5 BLOOD GAS, [id number] 12:23:00 Test Item Value Reference Range Comments PH ARTERIAL (BEAKER) (test knkd=182) 7.47 7.35-7.45 PCO2 ARTERIAL (BEAKER) (test vkac=392) 33 mmHg 35-45 PO2 ARTERIAL (BEAKER) (test usax=746) 390 mmHg 80-90 O2 SATURATION ARTERIAL (BEAKER) (test oeby=996) 99.8 % 96.0-97.0 HCO3 ARTERIAL (BEAKER) (test lalo=153) 26 mmol/L 21-29 BASE EXCESS ARTERIAL (BEAKER) (test otjv=207) 0.3 mmol/L -2.0-3.0 PATIENT TEMPERATURE (BEAKER) (test zyag=0971) 30.3 C FIO2 (BEAKER) (test sjqt=3315) 80.0 % GLUCOSE-STAT [id number] 12:23:00 Test Item Value Reference Range Comments GLUCOSE RANDOM (BEAKER) (test ydew=358) 183 mg/dL 70-110 HGB/HCT (H&H) - STAT [id number] 12:23:00 Test Item Value Reference Range Comments HEMOGLOBIN (BEAKER) (test gwsl=685) 9.7 g/dL 13.0-16.8 HEMATOCRIT (BEAKER) (test neyo=754) 29.0 % 40.0-50.0 SODIUM NA-STAT [id number] 12:22:00 Test Item Value Reference Range Comments SODIUM (BEAKER) (test ruog=283) 135 meq/L 135-148 POTASSIUM-STAT [id number] 12:22:00 Test Item Value Reference Range Comments POTASSIUM (BEAKER) (test enis=004) 4.7 meq/L 3.6-5.5 SODIUM NA-STAT [id number] 11:58:00 Test Item Value Reference Range Comments SODIUM (BEAKER) (test rebp=699) 136 meq/L 135-148 POTASSIUM-STAT [id number] 11:58:00 Test Item Value Reference Range Comments POTASSIUM (BEAKER) (test ipbi=225) 4.1 meq/L 3.6-5.5 BLOOD GAS, [id number] 11:58:00 Test Item Value Reference Range Comments PH ARTERIAL (BEAKER) (test slhf=800) 7.45 7.35-7.45 PCO2 ARTERIAL (BEAKER) (test cvtf=867) 37 mmHg 35-45 PO2 ARTERIAL (BEAKER) (test vlfk=663) 523 mmHg 80-90 O2 SATURATION ARTERIAL (BEAKER) (test enze=209) 99.9 % 96.0-97.0 HCO3 ARTERIAL (BEAKER) (test lvjw=521) 26 mmol/L 21-29 BASE EXCESS ARTERIAL (BEAKER) (test yupn=431) 0.9 mmol/L -2.0-3.0 PATIENT TEMPERATURE (BEAKER) (test eqee=0329) 33.6 C FIO2 (BEAKER) (test cxuw=3719) 100.0 % GLUCOSE-STAT [id number] 11:58:00 Test Item Value Reference Range Comments GLUCOSE RANDOM (BEAKER) (test ndxt=696) 143 mg/dL 70-110 HGB/HCT (H&H) - STAT [id number] 11:58:00 Test Item Value Reference Range Comments HEMOGLOBIN (BEAKER) (test ucva=816) 10.9 g/dL 13.0-16.8 HEMATOCRIT (BEAKER) (test rbxj=224) 32.0 % 40.0-50.0 BLOOD GAS, [id number] 11:57:00 Test Item Value Reference Range Comments PH VENOUS (BEAKER) (test hzqu=965) 7.42 7.32-7.42 PCO2 VENOUS (BEAKER) (test asfz=479) 39 mmHg 41-51 PO2 VENOUS (BEAKER) (test bhal=293) 63 mmHg 25-40 O2 SATURATION VENOUS (BEAKER) (test xznx=470) 95.3 % 40.0-70.0 HCO3 VENOUS (BEAKER) (test fuqz=773) 26 mmol/L 21-29 BASE EXCESS VENOUS (BEAKER) (test guus=078) 0.0 mmol/L -2.0-3.0 PATIENT TEMPERATURE (BEAKER) (test aoln=3050) 33.6 C FIO2 (BEAKER) (test wmli=0884) 100.0 % HEMOGLOBIN [id number] 10:26:00 Test Item Value Reference Range Comments HEMOGLOBIN A1C (BEAKER) (test wnsa=850) 5.2 % 4.3-6.1 PLATELET AGGREGATION: FUNCTION [id number] 09:03:00 Test Item Value Reference Range Comments WEAK ADP RESULT(BEAKER) (test 55 % 60-91 uxjy=6546) PLATELET FUNCTION SCREEN 50-59% indicates mild platelet INTERP (BEAKER) (test dysfunction zuqr=1124) [id number] Sam Ramírez MD (electronic (BEAKER) (test yznk=7702) signature) PLATELET COUNT AGG (BEAKER) 169 K/CU MM 150-450 (test kfkp=6251) Platelet Function Screen results may be falsely low with platelet counts<100, 000/cu mm.BLOOD GAS, [id number] 08:53:00 Test Item Value Reference Range Comments PH ARTERIAL (BEAKER) (test emed=837) 7.49 7.35-7.45 PCO2 ARTERIAL (BEAKER) (test dgod=220) 31 mmHg 35-45 PO2 ARTERIAL (BEAKER) (test lqcl=038) 356 mmHg 80-90 O2 SATURATION ARTERIAL (BEAKER) (test xttq=029) 99.8 % 96.0-97.0 HCO3 ARTERIAL (BEAKER) (test msgw=200) 23 mmol/L 21-29 BASE EXCESS ARTERIAL (BEAKER) (test kawf=457) 0.2 mmol/L -2.0-3.0 PATIENT TEMPERATURE (BEAKER) (test mney=6197) 36.2 C FIO2 (BEAKER) (test mdta=4956) 100.0 % HGB/HCT (H&H) - STAT [id number] 08:53:00 Test Item Value Reference Range Comments HEMOGLOBIN (BEAKER) (test xgny=872) 12.7 g/dL 13.0-16.8 HEMATOCRIT (BEAKER) (test zjsy=358) 37.0 % 40.0-50.0 CALCIUM, [id number] 08:53:00 Test Item Value Reference Range Comments CALCIUM IONIZED (BEAKER) (test jsjl=105) 1.05 mmol/L 1.12-1.27 PH, BLOOD (BEAKER) (test lmub=7773) 7.48 GLUCOSE-STAT [id number] 08:51:00 Test Item Value Reference Range Comments GLUCOSE RANDOM (BEAKER) (test svyj=433) 102 mg/dL 70-110 SODIUM NA-STAT [id number] 08:51:00 Test Item Value Reference Range Comments SODIUM (BEAKER) (test xvzg=289) 138 meq/L 135-148 POTASSIUM-STAT [id number] 08:51:00 Test Item Value Reference Range Comments POTASSIUM (BEAKER) (test eamt=060) 4.1 meq/L 3.6-5.5 URINALYSIS W/ [id number] 05:26:00 Test Item Value Reference Range Comments COLOR (BEAKER) (test sdny=646) Yellow CLARITY (BEAKER) (test untm=221) Clear SPECIFIC GRAVITY UA (BEAKER) (test wbpy=507) 1.008 1.001-1.035 PH UA (BEAKER) (test tvha=777) 7.5 5.0-8.0 PROTEIN UA (BEAKER) (test szby=683) 10 mg/dL Negative GLUCOSE UA (BEAKER) (test ffmo=011) Negative Negative KETONES UA (BEAKER) (test hiqy=504) Negative Negative BILIRUBIN UA (BEAKER) (test nkdy=102) Negative Negative BLOOD UA (BEAKER) (test tuqd=441) Negative Negative NITRITE UA (BEAKER) (test hfcs=930) Negative Negative LEUKOCYTE ESTERASE UA (BEAKER) (test pfxs=394) Negative Negative UROBILINOGEN UA (BEAKER) (test bmio=827) 2.0 mg/dL 0.2-1.0 RBC UA (BEAKER) (test xqek=040) < /HPF WBC UA (BEAKER) (test jzyi=096) 0 /HPF MUCUS (BEAKER) (test wiaf=6374) Rare AMORPHOUS CRYSTALS (BEAKER) (test vwmy=3198) Rare SOURCE(BEAKER) (test nswk=2667) Urine, Voided VITAMIN D, [id number] 05:01:00 Test Item Value Reference Range Comments VITAMIN D 25-OH (BEAKER) (test woae=0870) 24.8 ng/mL 6.6-49.9 Effective 06/19/2017: Reference Range ChangeNew: 6.6-49.9 ng/mL Previous: 13.0 -47.8 ng/mLRecommended Vitamin D Target Range: 30.0-40.0 ng/mLCREATININE, RANDOM [id number] 04:55:00 Test Item Value Reference Range Comments CREATININE URINE (BEAKER) (test gwts=272) 68.3 mg/dL Reference Range: No NormalsPROTEIN, RANDOM [id number] 04:55:00 Test Item Value Reference Range Comments PROTEIN, URINE (BEAKER) (test bouy=7668) 19 mg/dL 0-14 PTH, [id number] 04:44:00 Test Item Value Reference Range Comments PARATHYROID HORMONE INTACT (BEAKER) (test 69.0 pg/mL 8.5-72.5 iubp=779) BASIC METABOLIC [id number] 04:41:00 Test Item Value Reference Range Comments SODIUM (BEAKER) (test 140 meq/L 136-145 hsfk=559) POTASSIUM (BEAKER) (test 4.0 meq/L 3.5-5.1 hfad=355) CHLORIDE (BEAKER) (test 108 meq/L 98-107 arcu=768) CO2 (BEAKER) (test 23 meq/L 22-29 cyla=020) BLOOD UREA NITROGEN 19 mg/dL 7-21 (BEAKER) (test idft=003) CREATININE (BEAKER) (test 1.65 mg/dL 0.57-1.25 fdzk=177) GLUCOSE RANDOM (BEAKER) 105 mg/dL 70-105 (test mhji=603) CALCIUM (BEAKER) (test 9.3 mg/dL 8.4-10.2 wrjt=977) EGFR (BEAKER) (test 42 mL/min/1.73 sq m ESTIMATED GFR IS NOT ohaw=0303) ACCURATE CREATININE CLEARANCE IN PREDICTING GLOMERULAR FILTRATION RATE. ESTIMATED GFR IS NOT APPLICABLE FOR DIALYSIS PATIENTS. CBC (HEMOGRAM ONLY)2018-12-05 04:24:00 Test Item Value Reference Range Comments WHITE BLOOD CELL COUNT (BEAKER) (test hina=063) 7.4 K/ L 3.5-10.5 RED BLOOD CELL COUNT (BEAKER) (test iisp=754) 3.87 M/ L 4.63-6.08 HEMOGLOBIN (BEAKER) (test gkyc=717) 12.4 GM/DL 13.7-17.5 HEMATOCRIT (BEAKER) (test faii=732) 37.0 % 40.1-51.0 MEAN CORPUSCULAR VOLUME (BEAKER) (test ldeh=112) 95.6 fL 79.0-92.2 MEAN CORPUSCULAR HEMOGLOBIN (BEAKER) (test 32.0 pg 25.7-32.2 tixs=532) MEAN CORPUSCULAR HEMOGLOBIN CONC (BEAKER) (test 33.5 GM/DL 32.3-36.5 aziu=444) RED CELL DISTRIBUTION WIDTH (BEAKER) (test 13.2 % 11.6-14.4 oqnh=600) PLATELET COUNT (BEAKER) (test jpiw=610) 174 K/CU MM 150-450 MEAN PLATELET VOLUME (BEAKER) (test mxdt=817) 11.8 fL 9.4-12.4 NUCLEATED RED BLOOD CELLS (BEAKER) (test 0 /100 WBC 0-0 zexc=990) RAD, CHEST, 1 VIEW, NON [id number] 20:09:00Reason for exam:->Pre Op (ACB ) ScreeninigShould [...] MDReport Verified Date/Time: 12/04/2018 20:09:09 Reading Location: [facility] Neuro Reading Room [id number] 04:47:00 Test Item Value Reference Range Comments PARTIAL THROMBOPLASTIN TIME (BEAKER) (test 83.1 seconds 22.5-36.0 svwk=192) [id number] 04:44:00 Test Item Value Reference Range Comments MAGNESIUM (BEAKER) (test 2.3 mg/dL 1.6-2.6 Specimen slightly hemolyzed xibi=002) BASIC METABOLIC [id number] 04:44:00 Test Item Value Reference Range Comments SODIUM (BEAKER) (test 141 meq/L 136-145 jmoq=427) POTASSIUM (BEAKER) (test 4.0 meq/L 3.5-5.1 Specimen slightly plhs=291) hemolyzed CHLORIDE (BEAKER) (test 109 meq/L 98-107 nphs=597) CO2 (BEAKER) (test 22 meq/L 22-29 ucfi=526) BLOOD UREA NITROGEN 24 mg/dL 7-21 (BEAKER) (test yxoq=187) CREATININE (BEAKER) (test 1.61 mg/dL 0.57-1.25 Specimen slightly nnam=042) hemolyzed GLUCOSE RANDOM (BEAKER) 98 mg/dL 70-105 (test zpgz=872) CALCIUM (BEAKER) (test 9.3 mg/dL 8.4-10.2 jtuu=209) EGFR (BEAKER) (test 43 mL/min/1.73 sq m ESTIMATED GFR IS NOT ouhl=5851) ACCURATE CREATININE CLEARANCE IN PREDICTING GLOMERULAR FILTRATION RATE. ESTIMATED GFR IS NOT APPLICABLE FOR DIALYSIS PATIENTS. CBC (HEMOGRAM ONLY)2018-12-04 04:28:00 Test Item Value Reference Range Comments WHITE BLOOD CELL COUNT (BEAKER) (test vhkt=833) 7.6 K/ L 3.5-10.5 RED BLOOD CELL COUNT (BEAKER) (test azzs=659) 3.88 M/ L 4.63-6.08 HEMOGLOBIN (BEAKER) (test zwog=659) 12.3 GM/DL 13.7-17.5 HEMATOCRIT (BEAKER) (test dkup=932) 37.6 % 40.1-51.0 MEAN CORPUSCULAR VOLUME (BEAKER) (test qzbz=079) 96.9 fL 79.0-92.2 MEAN CORPUSCULAR HEMOGLOBIN (BEAKER) (test 31.7 pg 25.7-32.2 qkyz=130) MEAN CORPUSCULAR HEMOGLOBIN CONC (BEAKER) (test 32.7 GM/DL 32.3-36.5 ocpt=677) RED CELL DISTRIBUTION WIDTH (BEAKER) (test 13.3 % 11.6-14.4 xapn=143) PLATELET COUNT (BEAKER) (test nwbb=638) 158 K/CU MM 150-450 MEAN PLATELET VOLUME (BEAKER) (test njeh=956) 11.6 fL 9.4-12.4 NUCLEATED RED BLOOD CELLS (BEAKER) (test 0 /100 WBC 0-0 yede=602) PLATELET AGGREGATION: DRUG [id number] 19:31:00 Test Item Value Reference Range Comments STRONG ADP RESULT(BEAKER) (test 67 % 70-94 gnog=5909) WEAK ADP RESULT(BEAKER) (test 65 % 60-91 mlqq=0112) ARACHADONIC ACID RESULT(BEAKER) 5 % 63-89 (test vlut=1381) PLATELET AGG DRUG INTERPRETATION Normal response to ADP (BEAKER) (test glqp=3497) suggests a lack of U9P64-nzgygtuya effect. PLATELET AGG DRUG INTERPRETATION Decreased response to (BEAKER) (test nhho=273171) arachidonic acid suggests aspirin-like effect. VMLN-AWRWTXESSES-8572 (BEAKER) Sandi Ovalle MD (test gkxs=0887) (electronic signature) PLATELET COUNT AGG (BEAKER) 163 K/CU MM 150-450 (test pldg=5655) Platelet aggregation results may be falsely low with platelet counts<100,000/ CU MM.[id number] 12:53:00 Test Item Value Reference Range Comments PARTIAL THROMBOPLASTIN TIME (BEAKER) (test 69.0 seconds 22.5-36.0 cctu=527) BASIC METABOLIC [id number] 07:03:00 Test Item Value Reference Range Comments SODIUM (BEAKER) (test 140 meq/L 136-145 pryo=938) POTASSIUM (BEAKER) (test 3.6 meq/L 3.5-5.1 Specimen slightly afyn=088) hemolyzed CHLORIDE (BEAKER) (test 110 meq/L 98-107 ypwt=818) CO2 (BEAKER) (test 21 meq/L 22-29 gvve=289) BLOOD UREA NITROGEN 31 mg/dL 7-21 (BEAKER) (test ksfe=007) CREATININE (BEAKER) (test 1.54 mg/dL 0.57-1.25 Specimen slightly rfrh=157) hemolyzed GLUCOSE RANDOM (BEAKER) 90 mg/dL 70-105 (test ldon=456) CALCIUM (BEAKER) (test 8.2 mg/dL 8.4-10.2 yebo=267) EGFR (BEAKER) (test 45 mL/min/1.73 sq m ESTIMATED GFR IS NOT kqor=5026) ACCURATE CREATININE CLEARANCE IN PREDICTING GLOMERULAR FILTRATION RATE. ESTIMATED GFR IS NOT APPLICABLE FOR DIALYSIS PATIENTS. [id number] 06:52:00 Test Item Value Reference Range Comments PARTIAL THROMBOPLASTIN TIME (BEAKER) (test 65.5 seconds 22.5-36.0 kjys=656) CBC (HEMOGRAM ONLY)2018-12-03 06:39:00 Test Item Value Reference Range Comments WHITE BLOOD CELL COUNT (BEAKER) (test yqmh=821) 8.5 K/ L 3.5-10.5 RED BLOOD CELL COUNT (BEAKER) (test gdmr=764) 3.87 M/ L 4.63-6.08 HEMOGLOBIN (BEAKER) (test nwds=059) 12.1 GM/DL 13.7-17.5 HEMATOCRIT (BEAKER) (test oqvi=303) 37.6 % 40.1-51.0 MEAN CORPUSCULAR VOLUME (BEAKER) (test cdgm=969) 97.2 fL 79.0-92.2 MEAN CORPUSCULAR HEMOGLOBIN (BEAKER) (test 31.3 pg 25.7-32.2 jmaz=228) MEAN CORPUSCULAR HEMOGLOBIN CONC (BEAKER) (test 32.2 GM/DL 32.3-36.5 qnxo=548) RED CELL DISTRIBUTION WIDTH (BEAKER) (test 13.4 % 11.6-14.4 ljts=437) PLATELET COUNT (BEAKER) (test kgbe=298) 176 K/CU MM 150-450 MEAN PLATELET VOLUME (BEAKER) (test hoki=677) 12.2 fL 9.4-12.4 NUCLEATED RED BLOOD CELLS (BEAKER) (test 0 /100 WBC 0-0 ycqw=584) [id number] 00:34:00 Test Item Value Reference Range Comments PARTIAL THROMBOPLASTIN TIME (BEAKER) (test 56.8 seconds 22.5-36.0 ikne=831) [id number] 16:56:00 Test Item Value Reference Range Comments PARTIAL THROMBOPLASTIN TIME (BEAKER) (test 54.7 seconds 22.5-36.0 sdaf=399) B-TYPE NATRIURETIC FACTOR (BNP)2018-12-02 09:39:00 Test Item Value Reference Range Comments B-TYPE NATRIURETIC PEPTIDE (BEAKER) (test 1056 pg/mL 0-100 bepk=773) [id number] 09:17:00 Test Item Value Reference Range Comments PARTIAL THROMBOPLASTIN TIME (BEAKER) (test 39.8 seconds 22.5-36.0 ooso=205) TROPONIN [id number] 04:45:00 Test Item Value Reference Range Comments TROPONIN I (BEAKER) (test iapc=361) 11.57 ng/mL 0.00-0.03 Troponin I (TnI) levels [...] acute neurological disease, and persistent tachyarrhythmia.BASIC METABOLIC [id number] 04:29:00 Test Item Value Reference Range Comments SODIUM (BEAKER) (test 138 meq/L 136-145 wylv=124) POTASSIUM (BEAKER) (test 3.9 meq/L 3.5-5.1 Specimen slightly pphh=830) hemolyzed CHLORIDE (BEAKER) (test 108 meq/L 98-107 yuyv=236) CO2 (BEAKER) (test 18 meq/L 22-29 epqr=254) BLOOD UREA NITROGEN 39 mg/dL 7-21 (BEAKER) (test mewv=584) CREATININE (BEAKER) (test 1.90 mg/dL 0.57-1.25 Specimen slightly pdba=968) hemolyzed GLUCOSE RANDOM (BEAKER) 85 mg/dL 70-105 (test yakl=355) CALCIUM (BEAKER) (test 9.0 mg/dL 8.4-10.2 jlag=507) EGFR (BEAKER) (test 36 mL/min/1.73 sq m ESTIMATED GFR IS NOT nfrt=3991) ACCURATE CREATININE CLEARANCE IN PREDICTING GLOMERULAR FILTRATION RATE. ESTIMATED GFR IS NOT APPLICABLE FOR DIALYSIS PATIENTS. LIPID [id number] 04:29:00 Test Item Value Reference Range Comments TRIGLYCERIDES (BEAKER) (test 137 mg/dL Specimen slightly hemolyzed sasp=408) CHOLESTEROL (BEAKER) (test 174 mg/dL Specimen slightly hemolyzed xixt=308) HDL CHOLESTEROL (BEAKER) (test 34 mg/dL lehv=825) LDL CHOLESTEROL CALCULATED 113 mg/dL (BEAKER) (test hlgr=535) Triglyceride Reference Range: Low Risk <150 Borderline [...] Comments WHITE BLOOD CELL COUNT (BEAKER) (test vkxw=888) 11.4 K/ L 3.5-10.5 RED BLOOD CELL COUNT (BEAKER) (test yfop=087) 4.04 M/ L 4.63-6.08 HEMOGLOBIN (BEAKER) (test kxhg=312) 12.6 GM/DL 13.7-17.5 HEMATOCRIT (BEAKER) (test rlac=788) 38.7 % 40.1-51.0 MEAN CORPUSCULAR VOLUME (BEAKER) (test ruwp=411) 95.8 fL 79.0-92.2 MEAN CORPUSCULAR HEMOGLOBIN (BEAKER) (test 31.2 pg 25.7-32.2 dkzm=969) MEAN CORPUSCULAR HEMOGLOBIN CONC (BEAKER) (test 32.6 GM/DL 32.3-36.5 ozdc=231) RED CELL DISTRIBUTION WIDTH (BEAKER) (test 13.6 % 11.6-14.4 jwlq=109) PLATELET COUNT (BEAKER) (test veow=845) 178 K/CU MM 150-450 MEAN PLATELET VOLUME (BEAKER) (test jvap=267) 11.8 fL 9.4-12.4 NUCLEATED RED BLOOD CELLS (BEAKER) (test 0 /100 WBC 0-0 tvkn=377) [id number] 18:55:00 Test Item Value Reference Range Comments ACTIVATED CLOTTING TIME (BEAKER) 98 sec TESTED AT [facility] [address] [facility] (test ysvt=531) [facility] [address] COMPREHENSIVE METABOLIC [id number] 18:40:00 Test Item Value Reference Range Comments TOTAL PROTEIN (BEAKER) 6.7 gm/dL 6.0-8.3 (test bssv=750) ALBUMIN (BEAKER) (test 3.4 g/dL 3.5-5.0 pliq=5808) ALKALINE PHOSPHATASE 59 U/L 40-150 (BEAKER) (test bbot=621) BILIRUBIN TOTAL (BEAKER) 1.1 mg/dL 0.2-1.2 (test bhcd=216) SODIUM (BEAKER) (test 141 meq/L 136-145 kftm=192) POTASSIUM (BEAKER) (test 3.6 meq/L 3.5-5.1 lxbi=400) CHLORIDE (BEAKER) (test 105 meq/L 98-107 jwza=197) CO2 (BEAKER) (test 26 meq/L 22-29 mtvj=487) BLOOD UREA NITROGEN 40 mg/dL 7-21 (BEAKER) (test velz=682) CREATININE (BEAKER) (test 2.18 mg/dL 0.57-1.25 rojg=370) GLUCOSE RANDOM (BEAKER) 92 mg/dL 70-105 (test bezz=978) CALCIUM (BEAKER) (test 9.3 mg/dL 8.4-10.2 hyno=208) AST (SGOT) (BEAKER) (test 16 U/L 5-34 lesk=077) ALT (SGPT) (BEAKER) (test 11 U/L 6-55 edot=812) EGFR (BEAKER) (test 30 mL/min/1.73 sq m ESTIMATED GFR IS NOT ogng=4572) ACCURATE CREATININE CLEARANCE IN PREDICTING GLOMERULAR FILTRATION RATE. ESTIMATED GFR IS NOT APPLICABLE FOR DIALYSIS PATIENTS. PT/[id number] 18:31:00 Test Item Value Reference Range Comments PROTIME (BEAKER) (test hsuu=234) 14.6 seconds 11.7-14.7 INR (BEAKER) (test qrym=197) 1.1 <=5.9 PARTIAL THROMBOPLASTIN TIME (BEAKER) (test 38.0 seconds 22.5-36.0 kclj=704) RECOMMENDED COUMADIN/WARFARIN INR THERAPY RANGESSTANDARD DOSE: 2.0 - 3.0 Includes: PROPHYLAXIS forvenous thrombosis, systemic embolization; TREATMENT for venous thrombosis and/or pulmonary embolus.HIGH RISK: Target INR is 2.5-3.5 for patients with mechanical heart valves.PROTHROMBIN [id number] 18:30: 00 Test Item Value Reference Range Comments PROTIME (BEAKER) (test maxv=131) 14.6 seconds 11.7-14.7 INR (BEAKER) (test joyp=872) 1.1 <=5.9 RECOMMENDED COUMADIN/WARFARIN INR THERAPY RANGESSTANDARD DOSE: 2.0 - 3.0 Includes: PROPHYLAXIS forvenous thrombosis, systemic embolization; TREATMENT for venous thrombosis and/or pulmonary embolus.HIGH RISK: Target INR is 2.5-3.5 for patients with mechanical heart valves.CBC W/PLT COUNT & AUTO [id number] 18:27:00 Test Item Value Reference Range Comments WHITE BLOOD CELL COUNT (BEAKER) (test ovjr=946) 13.1 K/ L 3.5-10.5 RED BLOOD CELL COUNT (BEAKER) (test crjk=803) 3.93 M/ L 4.63-6.08 HEMOGLOBIN (BEAKER) (test sgjj=949) 12.4 GM/DL 13.7-17.5 HEMATOCRIT (BEAKER) (test ygqp=583) 37.3 % 40.1-51.0 MEAN CORPUSCULAR VOLUME (BEAKER) (test pvjt=594) 94.9 fL 79.0-92.2 MEAN CORPUSCULAR HEMOGLOBIN (BEAKER) (test 31.6 pg 25.7-32.2 kutw=742) MEAN CORPUSCULAR HEMOGLOBIN CONC (BEAKER) (test 33.2 GM/DL 32.3-36.5 ncjr=288) RED CELL DISTRIBUTION WIDTH (BEAKER) (test 13.6 % 11.6-14.4 urng=978) PLATELET COUNT (BEAKER) (test qjux=729) 184 K/CU MM 150-450 MEAN PLATELET VOLUME (BEAKER) (test vfhb=588) 11.6 fL 9.4-12.4 NUCLEATED RED BLOOD CELLS (BEAKER) (test 0 /100 WBC 0-0 cytj=818) NEUTROPHILS RELATIVE PERCENT (BEAKER) (test 71 % jqtb=339) LYMPHOCYTES RELATIVE PERCENT (BEAKER) (test 19 % ywev=475) MONOCYTES RELATIVE PERCENT (BEAKER) (test 9 % xzrg=664) EOSINOPHILS RELATIVE PERCENT (BEAKER) (test 0 % rzfj=947) BASOPHILS RELATIVE PERCENT (BEAKER) (test 0 % bvjf=914) NEUTROPHILS ABSOLUTE COUNT (BEAKER) (test 9.31 K/ L 1.78-5.38 eyhd=496) LYMPHOCYTES ABSOLUTE COUNT (BEAKER) (test 2.53 K/ L 1.32-3.57 utao=501) MONOCYTES ABSOLUTE COUNT (BEAKER) (test 1.12 K/ L 0.30-0.82 hsic=575) EOSINOPHILS ABSOLUTE COUNT (BEAKER) (test 0.04 K/ L 0.04-0.54 wjlj=077) BASOPHILS ABSOLUTE COUNT (BEAKER) (test 0.04 K/ L 0.01-0.08 xyuc=497) IMMATURE GRANULOCYTES-RELATIVE PERCENT (BEAKER) 1 % 0-1 (test kwkq=1247) [id number] 18:07:00 Test Item Value Reference Range Comments ACTIVATED CLOTTING TIME 136 sec TESTED AT [facility] [address] (BEAKER) (test tzkv=727) [facility] [address]
[2019-11-12 16:57] LABS: Absolute Lymphocytes (CBC) 1.4 K/uL (0.7-4.9); Basophils % 1.3 % (0-1.3); Hematocrit 40.8 % (39.6-49.0); MPV 9.6 fL (7.6-11.3); RBC Red Blood Cell Count 4.29 M/uL (4.33-5.43)
--- NOTE | 2019-11-12 16:59 | RAD REPORT ---
EXAM DESCRIPTION: RAD - Chest Single View - 11/12/2019 4:34 pm CLINICAL HISTORY: near syncope COMPARISON: Chest Single View dated 07/26/2019 TECHNIQUE: AP portable chest image was obtained 11/12/2019 4:34 pm . FINDINGS: Lungs are clear. Heart and vasculature are normal. No measurable pleural effusion and no p neumothorax. No acute bony abnormality seen. No acute aortic findings suspected. Sternotomy wires are in place. Chest is not substantially different from comparison. IMPRESSION: No acute cardiopulmonary process.
[2019-11-12 17:00] LABS: Protime INR 1.08
[2019-11-12 17:18] LABS: ALT/SGPT 22 U/L (12-78); AST/SGOT 9 U/L (15-37); Albumin 3.5 g/dL (3.4-5.0); Alkaline Phosphatase 82 U/L (45-117); BUN Blood Urea Nitrogen 26 mg/dL (7-18); Bicarbonate 27 mmol/L (21-32); Bilirubin Direct 0.1 mg/dL (0-0.2); Bilirubin Total 0.5 mg/dL (0.2-1.0); Glucose Level 90 mg/dL (74-106); Magnesium 2.3 mg/dL (1.8-2.4); NT PRO-BNP 309 pg/mL (<125); Potassium 3.9 mmol/L (3.5-5.1); Protein, Total 7.4 g/dL (6.4-8.2); Sodium Level 142 mmol/L (136-145); Troponin (Emerg Dept Use Only) < 0.02 ng/mL (0.0-0.045)
--- NOTE | 2019-11-12 18:10 | ER ---
Nurse's Notes [facility] Name: Jason Johnson Age: 69 yrs Sex: Male : 1950 Arrival Date: 11/12/2019 Time: 15:58 Bed 7 Private MD: Diagnosis: Dizziness and giddiness Presentation: 11/11 15:58 Chief complaint: EMS states: sudden onset of generalized weakness, nausea and ss diaphoresis. Family member told EMT that patient is due to have a pacemaker placed. HR 52, BGL 113. Coronavirus screen: The patient has NOT traveled to a country currently being monitored by the [facility] within the last 14 days. Proceed with normal triage procedures. Ebola Screen: Patient denies exposure to infectious person. Patient denies travel to an Ebola-affected area in the 21 days before illness onset. Initial Sepsis Screen: Does the patient meet any 2 criteria? No. Patient's initial sepsis screen is negative. Does the patient have a suspected source of infection? No. Patient's initial sepsis screen is negative. Risk Assessment: Do you want to hurt yourself or someone else? Patient reports no desire to harm self or others. 15:58 Method Of Arrival: EMS: [facility] 15:58 Acuity: NINA 2 ss 16:00 Onset of symptoms was November 12, 2019. Care prior to arrival: IV initiated. 20 GA, in jl7 the right antecubital area. 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 - Social history:: Smoking status: Patient reports use of chewing tobacco. Screenin:00 Abuse screen: Denies threats or abuse. Denies injuries from another. Nutritional jl7 screening: No deficits noted. Tuberculosis screening: No symptoms or risk factors identified. Fall Risk IV access (20 points). Total Aguirre Fall Scale indicates No Risk (0-24 pts). Assessment: 16:15 General: Appears in no apparent distress. uncomfortable, Behavior is cooperative, jl7 agitated, anxious. Pain: Denies pain. Neuro: Level of Consciousness is awake, alert, obeys commands, Oriented to person, place, time, situation. Cardiovascular: Heart tones S1 S2 present Patient's skin is warm and dry. Respiratory: Airway is patent Respiratory effort is even, unlabored, Respiratory pattern is regular, symmetrical. Derm: Skin is pink, warm \T\ dry. 17:15 Reassessment: Patient appears in no apparent distress at this time. No changes from jl7 previously documented assessment. Patient and/or family updated on plan of care and expected duration. Pain level reassessed. Patient is alert, oriented x 3, equal unlabored respirations, skin warm/dry/pink. Vital Signs: 15:58 BP 138 / 88; Pulse 50; Resp 18; Temp 97.4(O); Pulse Ox 100% on R/A; Weight 86.18 kg; ss Height 6 ft. 2 in. (187.96 cm); Pain 0/10; 17:16 BP 144 / 85; Pulse 55; Resp 17; Pulse Ox 99% on R/A; mh5 18:11 BP 148 / 97; Pulse 61; Resp 16 S; Pulse Ox 100% on R/A; jl7 15:58 Body Mass Index 24.39 (86.18 kg, 187.96 cm) ED Course: 15:58 Patient arrived in ED. ss 16:01 Triage completed. 16:02 Arm band placed on right wrist. 16:15 Solo Campbell FNP-C is [facility]. la1 16:15 Sanket Elder MD is Attending Physician. la1 16:23 EKG done, by ED staff, reviewed by Solo SORIA. 5 16:24 Patient has correct armband on for positive identification. Bed in low position. Call [facility] light in reach. Side rails up X2. Warm blanket given. hospital monitor on. Pulse ox on. NIBP on. 16:32 Laura Carroll, JAVI is Primary Nurse. jl7 16:33 XRAY Chest (1 view) In Process Unspecified. EDMS 17:00 Initial lab(s) drawn, by me, sent to lab. jl7 17:17 Maintain EMS IV. Dressing intact. 5 18:13 No provider procedures requiring assistance completed. IV discontinued, intact, jl7 bleeding controlled, No redness/swelling at site. Pressure dressing applied. Administered Medications: No medications were administered Outcome: 18:09 Discharge ordered by . lluvia 18:13 Discharged to home ambulatory. [email or web address] 18:13 Condition: stable 18:13 Discharge instructions given to patient, Instructed on discharge instructions, follow up and referral plans. Demonstrated understanding of instructions, follow-up care. 18:35 Patient left the ED. [email or web address] Signatures: Dispatcher [employer] EDLori Hinds, JAVI CALDWELL Solo Campbell, EQUAL OPPORTUNITY SPECIALIST-C EQUAL OPPORTUNITY SPECIALIST-[facility] Lanny [facility] Laura Carroll RN RN jl7
--- NOTE | 2019-11-12 18:11 | EDPHYS ---
Physician Documentation [facility] Name: Jason Johnson Age: 69 yrs Sex: Male : 1950 Arrival Date: 11/12/2019 Time: 15:58 Bed 7 Private MD: ED Physician Sanket Elder HPI: 11/11 16:24 This 69 yrs old Male presents to ER via EMS with complaints of General la1 Weakness. 16:24 The patient has experienced near-syncope, felt dizzy, felt generally weak. Onset: The la1 symptoms/episode began/occurred acutely, 1 hour(s) ago. Duration: This was a single episode. Context: occurred chair exercise class. Associated injury: The patient did not suffer any apparent associated injury. Associated signs and symptoms: Pertinent positives: diaphoresis, dizziness, nausea, vomiting, weakness, Pertinent negatives: chest pain, confusion, seizure, shortness of breath, tingling. Current symptoms: Currently, the patient is not experiencing any symptoms, the patient feels back to baseline. The patient has not experienced similar symptoms in the past. 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 - Social history:: Smoking status: Patient reports use of chewing tobacco. ROS: 16:26 Constitutional: Negative for fever, chills, and weight loss, Eyes: Negative for injury, la1 pain, redness, and discharge, ENT: Negative for injury, pain, and discharge, Neck: Negative for injury, pain, and swelling, Cardiovascular: Negative for chest pain, palpitations, and edema, Respiratory: Negative for shortness of breath, cough, wheezing, and pleuritic chest pain, Abdomen/GI: Negative for abdominal pain, nausea, vomiting, diarrhea, and constipation, Back: Negative for injury and pain, MS/Extremity: Negative for injury and deformity, Skin: Negative for injury, rash, and discoloration, Neuro: Negative for headache, weakness, numbness, tingling, and seizure. Exam: 16:26 Constitutional: This is a well developed, well nourished patient who is awake, alert, la1 and in no acute distress. Head/Face: Normocephalic, atraumatic. Eyes: Pupils equal round and reactive to light, extra-ocular motions intact. Lids and lashes normal. Conjunctiva and sclera are non-icteric and not injected. Cornea within normal limits. Periorbital areas with no swelling, redness, or edema. Neck: Trachea midline, and no cervical lymphadenopathy. Supple, full range of motion without nuchal rigidity, or vertebral point tenderness. No Meningismus. Chest/axilla: Normal chest wall appearance and motion. Nontender with no deformity. No lesions are appreciated. Cardiovascular: bradycardic with normal rhythm and normal S1 and S2. No gallops, murmurs, or rubs. Normal PMI, no JVD. No pulse deficits. Respiratory: Lungs have equal breath sounds bilaterally, clear to auscultation Abdomen/GI: Soft, non-tender, with normal bowel sounds. No distension or tympany. No guarding or rebound. No evidence of tenderness throughout. Back: No spinal tenderness. No costovertebral tenderness. Full range of motion. MS/ Extremity: Pulses equal, no cyanosis. Neurovascular intact. Full, normal range of motion. Neuro: Awake and alert, GCS 15, oriented to person, place, time, and situation. Cranial nerves II-XII grossly intact. Motor strength 5/5 in all extremities. Sensory grossly intact. Cerebellar exam normal 17:23 ECG was reviewed by the Attending Physician. la1 Vital Signs: 15:58 BP 138 / 88; Pulse 50; Resp 18; Temp 97.4(O); Pulse Ox 100% on R/A; Weight 86.18 kg; ss Height 6 ft. 2 in. (187.96 cm); Pain 0/10; 17:16 BP 144 / 85; Pulse 55; Resp 17; Pulse Ox 99% on R/A; mh5 18:11 BP 148 / 97; Pulse 61; Resp 16 S; Pulse Ox 100% on R/A; jl7 15:58 Body Mass Index 24.39 (86.18 kg, 187.96 cm) MDM: 16:15 Patient medically screened. la1 17:39 Differential Diagnosis: aortic aneurysm, cardiac arrhythmia, cerebrovascular accident, la1 seizure, vasovagal episode. Data reviewed: vital signs, nurses notes, old medical records, from previous admission in July for syncope, had full work up at that time without any acute findings lab test result(s), EKG, radiologic studies. Data interpreted: Pulse oximetry: on room air is 99 %. Interpretation: normal. Test interpretation: by ED physician or midlevel provider: ECG, plain radiologic studies. Counseling: I had a detailed discussion with the patient and/or guardian regarding: the historical points, exam findings, and any diagnostic results supporting the discharge/admit diagnosis, the presence of at least one elevated blood pressure reading (>120/80) during this emergency department visit, lab results, radiology results, the need for outpatient follow up, a family practitioner, to return to the emergency department if symptoms worsen or persist or if there are any questions or concerns that arise at home. ED course: pt ambulatory without assistance, states he feels back to baseline, had no chest pain, no palpitation, no focal neurological deficits. Pt has had a few similar episodes in the past, did not lose consciousness. Xray without acute findings, cardiac enzymes normal, denies SOB, no hypotension pre hospital or during the ED course. Pt amendable to going home and following up with PCP, strict return precautions given. When questioned about his need for a pacemaker that was reported he states that the first time he heard anything about it was when the EMT said he might need a pacemaker. ECG with sinus manav that has improved to a rate > 60 on tele. . 18:08 Special discussion: Based on the patient's history, exam, and Dx evaluation, there is la1 no indication for emergent intervention or inpatient Tx. It is understood by the patient/guardian that if the Sx's persist or worsen they need to return immediately for re-evaluation. Based on the history and exam findings, there is no indication for further emergent testing or inpatient evaluation. I discussed with the patient/guardian the need to see the primary care provider for further evaluation of the symptoms. 11/11 16:23 Order name: Basic Metabolic Panel; Complete Time: 17:23 la1 11/11 16:23 Order name: CBC with Diff; Complete Time: 17:05 la1 11/11 16:23 Order name: LFT's; Complete Time: 17:23 la1 11/11 16:23 Order name: Magnesium; Complete Time: 17:23 11/11 16:23 Order name: NT PRO-BNP; Complete Time: 17:23 11/11 16:23 Order name: PT-INR; Complete Time: 17:05 11/11 16:23 Order name: Troponin (emerg Dept Use Only); Complete Time: 17:23 11/11 16:23 Order name: XRAY Chest (1 view); Complete Time: 17:11/11 16:23 Order name: EKG; Complete Time: 16:25 11/11 16:23 Order name: Cardiac monitoring; Complete Time: 18:10 11/11 16:23 Order name: EKG - Nurse/Tech; Complete Time: 18:11/11 16:23 Order name: IV Saline Lock; Complete Time: 18:11/11 16:23 Order name: Labs collected and sent; Complete Time: 18:11/11 16:23 Order name: O2 Per Protocol; Complete Time: 18:11/11 16:23 Order name: O2 Sat Monitoring; Complete Time: 18: EC:23 Rate is 50 beats/min. Rhythm is regular, Sinus bradycardia. QRS [place] is Normal. MI la1 interval is prolonged at 206 msec. QRS interval is normal. QT interval is normal. No Q waves. T waves are Inverted in leads aVF, V1, V3. No ST changes noted. Clinical impression: Sinus bradycardia. Interpreted by me. Reviewed by me. Administered Medications: No medications were administered Disposition: 11/12 07:04 Co-signature as Attending Physician, Sanket Elder MD I agree with the assessment and kdr plan of care. Disposition: 11/12/19 18:09 Discharged to Home. Impression: Dizziness and giddiness. - Condition is Stable. - Discharge Instructions: Dizziness, Near-Syncope, Near-Syncope, Ictx-an-Ooxb. - Medication Reconciliation Form, Thank You Letter form. - Follow up: Private Physician; When: 2 - 3 days; Reason: Recheck today's complaints, Re-evaluation by your physician. - Problem is new. - Symptoms have improved. Signatures: Dispatcher [employer] [facility] Sanket Elder MD MD kdr Smirch, Shelby, RN RN ss Solo Campbell VALIDATION MANAGER-C VALIDATION MANAGER-Cla1 Laura Carroll RN RN jl7 Corrections: (The following items were deleted from the chart) 03 18:35 18:09 11/12/2019 18:09 Discharged to Home. Impression: Dizziness and giddiness. jl7 Condition is Stable. Forms are Medication Reconciliation Form, Thank You Letter, Antibiotic Education, Prescription Opioid Use. Follow up: Private Physician; When: 2 - 3 days; Reason: Recheck today's complaints, Re-evaluation by your physician. Problem is new. Symptoms have improved. la1
[2019-11-12 18:56] VITALS: TEMP 97.4
[2019-11-12 18:59] VITALS: BP 148/97; O2SAT 100
--- NOTE | 2019-11-13 13:45 | EKG ---
Test Date: 2019-11-12 Test Time: 16:15:43 Bailing Machine Operator: TORIN MEASUREMENT RESULTS: Intervals: Rate: 50 TN: 206 QRSD: 66 QT: 418 QTc: 381 Bertram: P: 82 TN: 206 QRS: -11 T: 3 INTERPRETIVE STATEMENTS: Sinus bradycardia Anterior infarct, age undetermined Abnormal ECG Compared to ECG 07/26/2019 15:35:17 Myocardial infarct finding now present Sinus rhythm no longer present Left-axis deviation no longer present T-wave abnormality no longer present Electronically Signed On 11-13-19 13:45:03 BOBTAILER by Cornelio Morgan
== END 2019-11-12 18:35 | disposition home or self-care (01) ==
LOC: ER 15:53
DX: R42 Dizziness and giddiness (principal); I10 Essential (primary) hypertension; F17.220 Nicotine dependence, chewing tobacco, uncomplicated; Z95.1 Presence of aortocoronary bypass graft; Z79.82 Long term (current) use of aspirin
CPT/HCPCS: 36415; 71045; 80048; 80076; 83735; 83880; 84484; 85025; 85610; 93005; 99284

== ENCOUNTER 2019-11-22 10:38 | Emergency (ER) | payer OTHER ==
--- OUTSIDE RECORDS SUMMARY | 2019-11-22 10:44 | XMS REPORT ---
:1950 [facility] Address [address] [place] [address] Care Team Providers Name Role Phone MIGUEL [...] Value Reference Range Comments COLOR (BEAKER) (test snsu=316) Yellow CLARITY (BEAKER) (test trui=501) Hazy SPECIFIC GRAVITY UA (BEAKER) (test vlkk=061) 1.008 1.001-1.035 PH UA (BEAKER) (test igdn=191) 7.5 5.0-8.0 PROTEIN UA (BEAKER) (test avru=863) 20 mg/dL Negative GLUCOSE UA (BEAKER) (test bntq=907) Negative Negative KETONES UA (BEAKER) (test ajqe=818) Negative Negative BILIRUBIN UA (BEAKER) (test agrm=123) Negative Negative BLOOD UA (BEAKER) (test ymsa=375) Negative Negative NITRITE UA (BEAKER) (test sffj=912) Negative Negative LEUKOCYTE ESTERASE UA (BEAKER) (test tuwu=567) Trace Negative UROBILINOGEN UA (BEAKER) (test nmsa=265) 4.0 mg/dL 0.2-1.0 RBC UA (BEAKER) (test hmik=562) < /HPF WBC UA (BEAKER) (test civj=958) 3 /HPF SQUAMOUS EPITHELIAL (BEAKER) (test keqs=364) 1 /HPF SOURCE(BEAKER) (test njql=9143) [id number] 05:39:00 Test Item Value Reference Range Comments PHOSPHORUS (BEAKER) (test iovb=449) 2.8 mg/dL 2.3-4.7 CBC W/PLT COUNT & AUTO [id number] 05:18:00 Test Item Value Reference Range Comments WHITE BLOOD CELL COUNT (BEAKER) (test xjyb=193) 13.3 K/ L 3.5-10.5 RED BLOOD CELL COUNT (BEAKER) (test iont=355) 2.86 M/ L 4.63-6.08 HEMOGLOBIN (BEAKER) (test aopp=011) 9.1 GM/DL 13.7-17.5 HEMATOCRIT (BEAKER) (test zwub=607) 27.5 % 40.1-51.0 MEAN CORPUSCULAR VOLUME (BEAKER) (test cebc=860) 96.2 fL 79.0-92.2 MEAN CORPUSCULAR HEMOGLOBIN (BEAKER) (test 31.8 pg 25.7-32.2 rmfo=032) MEAN CORPUSCULAR HEMOGLOBIN CONC (BEAKER) (test 33.1 GM/DL 32.3-36.5 fyte=626) RED CELL DISTRIBUTION WIDTH (BEAKER) (test 15.1 % 11.6-14.4 vtss=740) PLATELET COUNT (BEAKER) (test hwwd=127) 225 K/CU MM 150-450 MEAN PLATELET VOLUME (BEAKER) (test brrs=764) 11.5 fL 9.4-12.4 NUCLEATED RED BLOOD CELLS (BEAKER) (test 0 /100 WBC 0-0 rzvj=859) NEUTROPHILS RELATIVE PERCENT (BEAKER) (test 73 % hxhn=466) LYMPHOCYTES RELATIVE PERCENT (BEAKER) (test 16 % yudr=007) MONOCYTES RELATIVE PERCENT (BEAKER) (test 6 % lspi=389) EOSINOPHILS RELATIVE PERCENT (BEAKER) (test 3 % bdzq=879) BASOPHILS RELATIVE PERCENT (BEAKER) (test 1 % xomq=059) NEUTROPHILS ABSOLUTE COUNT (BEAKER) (test 9.69 K/ L 1.78-5.38 cvjm=164) LYMPHOCYTES ABSOLUTE COUNT (BEAKER) (test 2.16 K/ L 1.32-3.57 kkmj=377) MONOCYTES ABSOLUTE COUNT (BEAKER) (test 0.84 K/ L 0.30-0.82 bawq=733) EOSINOPHILS ABSOLUTE COUNT (BEAKER) (test 0.39 K/ L 0.04-0.54 ejao=129) BASOPHILS ABSOLUTE COUNT (BEAKER) (test 0.08 K/ L 0.01-0.08 xjwr=284) IMMATURE GRANULOCYTES-RELATIVE PERCENT (BEAKER) 1 % 0-1 (test awue=8724) U/S, RENAL, [id number] 02:06:00Reason for exam:->ckdShould this be performed at [...] MDReport Verified Date/Time: 12/12/2018 02:06:07 Reading Location: [facility] B1 C013Y CT Body Reading Room [id number] 05:23:00 Test Item Value Reference Range Comments PHOSPHORUS (BEAKER) (test ezww=795) 2.7 mg/dL 2.3-4.7 [id number] 05:23:00 Test Item Value Reference Range Comments MAGNESIUM (BEAKER) (test zgkf=506) 2.1 mg/dL 1.6-2.6 BASIC METABOLIC [id number] 05:23:00 Test Item Value Reference Range Comments SODIUM (BEAKER) (test 140 meq/L 136-145 vtqx=145) POTASSIUM (BEAKER) (test 3.4 meq/L 3.5-5.1 wtva=422) CHLORIDE (BEAKER) (test 111 meq/L 98-107 ibup=032) CO2 (BEAKER) (test 24 meq/L 22-29 htcv=095) BLOOD UREA NITROGEN 20 mg/dL 7-21 (BEAKER) (test vvtb=015) CREATININE (BEAKER) (test 1.29 mg/dL 0.57-1.25 ywwq=167) GLUCOSE RANDOM (BEAKER) 110 mg/dL 70-105 (test vvoy=405) CALCIUM (BEAKER) (test 8.3 mg/dL 8.4-10.2 jrgb=313) EGFR (BEAKER) (test 56 mL/min/1.73 sq m ESTIMATED GFR IS NOT vptm=2701) ACCURATE CREATININE CLEARANCE IN PREDICTING GLOMERULAR FILTRATION RATE. ESTIMATED GFR IS NOT APPLICABLE FOR DIALYSIS PATIENTS. CBC W/PLT COUNT & AUTO [id number] 05:00:00 Test Item Value Reference Range Comments WHITE BLOOD CELL COUNT (BEAKER) (test hscx=475) 11.2 K/ L 3.5-10.5 RED BLOOD CELL COUNT (BEAKER) (test qmbc=249) 2.70 M/ L 4.63-6.08 HEMOGLOBIN (BEAKER) (test uaei=015) 8.6 GM/DL 13.7-17.5 HEMATOCRIT (BEAKER) (test xswg=157) 26.0 % 40.1-51.0 MEAN CORPUSCULAR VOLUME (BEAKER) (test rhfk=837) 96.3 fL 79.0-92.2 MEAN CORPUSCULAR HEMOGLOBIN (BEAKER) (test 31.9 pg 25.7-32.2 mvxv=244) MEAN CORPUSCULAR HEMOGLOBIN CONC (BEAKER) (test 33.1 GM/DL 32.3-36.5 jplf=676) RED CELL DISTRIBUTION WIDTH (BEAKER) (test 14.8 % 11.6-14.4 wksv=714) PLATELET COUNT (BEAKER) (test ahzz=656) 180 K/CU MM 150-450 MEAN PLATELET VOLUME (BEAKER) (test omfh=008) 12.3 fL 9.4-12.4 NUCLEATED RED BLOOD CELLS (BEAKER) (test 0 /100 WBC 0-0 hqdk=806) NEUTROPHILS RELATIVE PERCENT (BEAKER) (test 69 % vtyr=305) LYMPHOCYTES RELATIVE PERCENT (BEAKER) (test 15 % gkxg=620) MONOCYTES RELATIVE PERCENT (BEAKER) (test 9 % pppf=063) EOSINOPHILS RELATIVE PERCENT (BEAKER) (test 5 % aknb=906) BASOPHILS RELATIVE PERCENT (BEAKER) (test 0 % yrxr=237) NEUTROPHILS ABSOLUTE COUNT (BEAKER) (test 7.74 K/ L 1.78-5.38 wrqd=813) LYMPHOCYTES ABSOLUTE COUNT (BEAKER) (test 1.71 K/ L 1.32-3.57 mijp=552) MONOCYTES ABSOLUTE COUNT (BEAKER) (test 1.01 K/ L 0.30-0.82 nkfn=420) EOSINOPHILS ABSOLUTE COUNT (BEAKER) (test 0.51 K/ L 0.04-0.54 jfwv=592) BASOPHILS ABSOLUTE COUNT (BEAKER) (test 0.05 K/ L 0.01-0.08 hihn=720) IMMATURE GRANULOCYTES-RELATIVE PERCENT (BEAKER) 2 % 0-1 (test nbnm=1114) [id number] 05:42:00 Test Item Value Reference Range Comments PHOSPHORUS (BEAKER) (test wnsl=453) 2.9 mg/dL 2.3-4.7 [id number] 05:42:00 Test Item Value Reference Range Comments MAGNESIUM (BEAKER) (test lvsb=804) 2.0 mg/dL 1.6-2.6 BASIC METABOLIC [id number] 05:42:00 Test Item Value Reference Range Comments SODIUM (BEAKER) (test 139 meq/L 136-145 hvco=890) POTASSIUM (BEAKER) (test 3.8 meq/L 3.5-5.1 aczm=571) CHLORIDE (BEAKER) (test 109 meq/L 98-107 ybwm=490) CO2 (BEAKER) (test 24 meq/L 22-29 wjje=923) BLOOD UREA NITROGEN 21 mg/dL 7-21 (BEAKER) (test zbjo=840) CREATININE (BEAKER) (test 1.35 mg/dL 0.57-1.25 fcgq=420) GLUCOSE RANDOM (BEAKER) 102 mg/dL 70-105 (test sxge=009) CALCIUM (BEAKER) (test 8.6 mg/dL 8.4-10.2 mnww=562) EGFR (BEAKER) (test 53 mL/min/1.73 sq m ESTIMATED GFR IS NOT nztm=4109) ACCURATE CREATININE CLEARANCE IN PREDICTING GLOMERULAR FILTRATION RATE. ESTIMATED GFR IS NOT APPLICABLE FOR DIALYSIS PATIENTS. CBC W/PLT COUNT & AUTO [id number] 05:18:00 Test Item Value Reference Range Comments WHITE BLOOD CELL COUNT (BEAKER) (test self=766) 10.9 K/ L 3.5-10.5 RED BLOOD CELL COUNT (BEAKER) (test pzuv=413) 2.80 M/ L 4.63-6.08 HEMOGLOBIN (BEAKER) (test nfbe=398) 8.8 GM/DL 13.7-17.5 HEMATOCRIT (BEAKER) (test fimp=597) 27.1 % 40.1-51.0 MEAN CORPUSCULAR VOLUME (BEAKER) (test xlsm=928) 96.8 fL 79.0-92.2 MEAN CORPUSCULAR HEMOGLOBIN (BEAKER) (test 31.4 pg 25.7-32.2 wzza=692) MEAN CORPUSCULAR HEMOGLOBIN CONC (BEAKER) (test 32.5 GM/DL 32.3-36.5 apyu=436) RED CELL DISTRIBUTION WIDTH (BEAKER) (test 14.4 % 11.6-14.4 mgps=972) PLATELET COUNT (BEAKER) (test jnbm=241) 171 K/CU MM 150-450 MEAN PLATELET VOLUME (BEAKER) (test fgik=274) 11.7 fL 9.4-12.4 NUCLEATED RED BLOOD CELLS (BEAKER) (test 0 /100 WBC 0-0 nvjk=505) NEUTROPHILS RELATIVE PERCENT (BEAKER) (test 71 % mebp=934) LYMPHOCYTES RELATIVE PERCENT (BEAKER) (test 16 % hisn=125) MONOCYTES RELATIVE PERCENT (BEAKER) (test 8 % usfb=322) EOSINOPHILS RELATIVE PERCENT (BEAKER) (test 4 % bhjf=174) BASOPHILS RELATIVE PERCENT (BEAKER) (test 0 % ryed=717) NEUTROPHILS ABSOLUTE COUNT (BEAKER) (test 7.66 K/ L 1.78-5.38 pmpb=801) LYMPHOCYTES ABSOLUTE COUNT (BEAKER) (test 1.78 K/ L 1.32-3.57 jbpx=071) MONOCYTES ABSOLUTE COUNT (BEAKER) (test 0.83 K/ L 0.30-0.82 jhua=932) EOSINOPHILS ABSOLUTE COUNT (BEAKER) (test 0.44 K/ L 0.04-0.54 pyhr=408) BASOPHILS ABSOLUTE COUNT (BEAKER) (test 0.04 K/ L 0.01-0.08 veev=619) IMMATURE GRANULOCYTES-RELATIVE PERCENT (BEAKER) 1 % 0-1 (test hrdb=7031) RAD, CHEST, 1 VIEW, NON [id number] 10:12:00Reason for exam:->post operative cardiacShould this be [...] Camejo MDReport Verified Date/Time: 12/09/201810:12:03 Reading Location: [facility] Radiology Reading Room CBC W/PLT COUNT & AUTO [id number] 07:16:00 Test Item Value Reference Range Comments WHITE BLOOD CELL COUNT (BEAKER) (test nagx=268) 9.7 K/ L 3.5-10.5 RED BLOOD CELL COUNT (BEAKER) (test dzmv=681) 2.47 M/ L 4.63-6.08 HEMOGLOBIN (BEAKER) (test facm=898) 7.8 GM/DL 13.7-17.5 HEMATOCRIT (BEAKER) (test xgxf=635) 23.9 % 40.1-51.0 MEAN CORPUSCULAR VOLUME (BEAKER) (test wzmd=065) 96.8 fL 79.0-92.2 MEAN CORPUSCULAR HEMOGLOBIN (BEAKER) (test 31.6 pg 25.7-32.2 ltsv=172) MEAN CORPUSCULAR HEMOGLOBIN CONC (BEAKER) (test 32.6 GM/DL 32.3-36.5 lttc=495) RED CELL DISTRIBUTION WIDTH (BEAKER) (test 14.8 % 11.6-14.4 gxgt=869) PLATELET COUNT (BEAKER) (test iyrr=363) 131 K/CU MM 150-450 MEAN PLATELET VOLUME (BEAKER) (test wjve=845) 12.0 fL 9.4-12.4 NUCLEATED RED BLOOD CELLS (BEAKER) (test 1 /100 WBC 0-0 kzxo=852) NEUTROPHILS RELATIVE PERCENT (BEAKER) (test 72 % kxoo=243) LYMPHOCYTES RELATIVE PERCENT (BEAKER) (test 17 % tmfn=993) MONOCYTES RELATIVE PERCENT (BEAKER) (test 8 % nszt=722) EOSINOPHILS RELATIVE PERCENT (BEAKER) (test 2 % ratj=471) BASOPHILS RELATIVE PERCENT (BEAKER) (test 0 % oejn=273) NEUTROPHILS ABSOLUTE COUNT (BEAKER) (test 6.97 K/ L 1.78-5.38 ujte=396) LYMPHOCYTES ABSOLUTE COUNT (BEAKER) (test 1.67 K/ L 1.32-3.57 ddxv=887) MONOCYTES ABSOLUTE COUNT (BEAKER) (test 0.75 K/ L 0.30-0.82 grul=292) EOSINOPHILS ABSOLUTE COUNT (BEAKER) (test 0.19 K/ L 0.04-0.54 nhio=759) BASOPHILS ABSOLUTE COUNT (BEAKER) (test 0.02 K/ L 0.01-0.08 ndeg=583) IMMATURE GRANULOCYTES-RELATIVE PERCENT (BEAKER) 1 % 0-1 (test kivc=0550) [id number] 07:10:00 Test Item Value Reference Range Comments PHOSPHORUS (BEAKER) (test jtnq=855) 2.5 mg/dL 2.3-4.7 [id number] 07:10:00 Test Item Value Reference Range Comments MAGNESIUM (BEAKER) (test qxjl=651) 2.1 mg/dL 1.6-2.6 BASIC METABOLIC [id number] 07:10:00 Test Item Value Reference Range Comments SODIUM (BEAKER) (test 140 meq/L 136-145 qbnl=436) POTASSIUM (BEAKER) (test 3.6 meq/L 3.5-5.1 mrnb=723) CHLORIDE (BEAKER) (test 110 meq/L 98-107 lwsq=061) CO2 (BEAKER) (test 25 meq/L 22-29 gtyi=619) BLOOD UREA NITROGEN 30 mg/dL 7-21 (BEAKER) (test sroq=214) CREATININE (BEAKER) (test 1.47 mg/dL 0.57-1.25 dfgw=473) GLUCOSE RANDOM (BEAKER) 101 mg/dL 70-105 (test eoqk=448) CALCIUM (BEAKER) (test 8.4 mg/dL 8.4-10.2 uwkj=985) EGFR (BEAKER) (test 48 mL/min/1.73 sq m ESTIMATED GFR IS NOT xjuz=9389) ACCURATE CREATININE CLEARANCE IN PREDICTING GLOMERULAR FILTRATION RATE. ESTIMATED GFR IS NOT APPLICABLE FOR DIALYSIS PATIENTS. HEMOGLOBIN AND [id number] 19:10:00 Test Item Value Reference Range Comments HEMOGLOBIN (BEAKER) (test xvew=079) 8.1 GM/DL 13.7-17.5 HEMATOCRIT (BEAKER) (test rpib=897) 24.8 % 40.1-51.0 RAD, CHEST, 1 VIEW, NON [id number] 07:39:00Reason for exam:->post operative cardiacShould this be [...] MDReport Verified Date/Time: 12/08/2018 07:39:23 Reading Location: [facility] Radiology Reading Room [id number] 05:54:00 Test Item Value Reference Range Comments PHOSPHORUS (BEAKER) (test bnro=046) 2.7 mg/dL 2.3-4.7 BASIC METABOLIC [id number] 05:54:00 Test Item Value Reference Range Comments SODIUM (BEAKER) (test 140 meq/L 136-145 ixdw=197) POTASSIUM (BEAKER) (test 4.0 meq/L 3.5-5.1 lfsl=725) CHLORIDE (BEAKER) (test 110 meq/L 98-107 eqhx=995) CO2 (BEAKER) (test 24 meq/L 22-29 qbfj=459) BLOOD UREA NITROGEN 38 mg/dL 7-21 (BEAKER) (test ahau=450) CREATININE (BEAKER) (test 1.70 mg/dL 0.57-1.25 ikah=555) GLUCOSE RANDOM (BEAKER) 116 mg/dL 70-105 (test dpfy=874) CALCIUM (BEAKER) (test 8.8 mg/dL 8.4-10.2 werb=473) EGFR (BEAKER) (test 40 mL/min/1.73 sq m ESTIMATED GFR IS NOT zabw=2589) ACCURATE CREATININE CLEARANCE IN PREDICTING GLOMERULAR FILTRATION RATE. ESTIMATED GFR IS NOT APPLICABLE FOR DIALYSIS PATIENTS. CBC W/PLT COUNT & AUTO [id number] 04:57:00 Test Item Value Reference Range Comments WHITE BLOOD CELL COUNT (BEAKER) (test apwv=610) 12.8 K/ L 3.5-10.5 RED BLOOD CELL COUNT (BEAKER) (test lpjc=764) 2.20 M/ L 4.63-6.08 HEMOGLOBIN (BEAKER) (test sfuu=656) 7.0 GM/DL 13.7-17.5 HEMATOCRIT (BEAKER) (test ugqc=447) 21.4 % 40.1-51.0 MEAN CORPUSCULAR VOLUME (BEAKER) (test xzao=285) 97.3 fL 79.0-92.2 MEAN CORPUSCULAR HEMOGLOBIN (BEAKER) (test 31.8 pg 25.7-32.2 csec=352) MEAN CORPUSCULAR HEMOGLOBIN CONC (BEAKER) (test 32.7 GM/DL 32.3-36.5 cwed=144) RED CELL DISTRIBUTION WIDTH (BEAKER) (test 15.3 % 11.6-14.4 nbtn=517) PLATELET COUNT (BEAKER) (test cxqo=146) 131 K/CU MM 150-450 MEAN PLATELET VOLUME (BEAKER) (test bffl=264) 12.0 fL 9.4-12.4 NUCLEATED RED BLOOD CELLS (BEAKER) (test 1 /100 WBC 0-0 qoze=863) NEUTROPHILS RELATIVE PERCENT (BEAKER) (test 79 % eynu=131) LYMPHOCYTES RELATIVE PERCENT (BEAKER) (test 12 % ovxy=527) MONOCYTES RELATIVE PERCENT (BEAKER) (test 9 % iypx=608) EOSINOPHILS RELATIVE PERCENT (BEAKER) (test 0 % qtgh=813) BASOPHILS RELATIVE PERCENT (BEAKER) (test 0 % fnmb=274) NEUTROPHILS ABSOLUTE COUNT (BEAKER) (test 10.09 K/ L 1.78-5.38 xcpe=193) LYMPHOCYTES ABSOLUTE COUNT (BEAKER) (test 1.48 K/ L 1.32-3.57 yoqa=613) MONOCYTES ABSOLUTE COUNT (BEAKER) (test 1.10 K/ L 0.30-0.82 sjui=772) EOSINOPHILS ABSOLUTE COUNT (BEAKER) (test 0.01 K/ L 0.04-0.54 bjsg=392) BASOPHILS ABSOLUTE COUNT (BEAKER) (test 0.01 K/ L 0.01-0.08 itxs=403) IMMATURE GRANULOCYTES-RELATIVE PERCENT (BEAKER) 1 % 0-1 (test ljax=5234) BASIC METABOLIC [id number] 12:27:00 Test Item Value Reference Range Comments SODIUM (BEAKER) (test 141 meq/L 136-145 yymv=801) POTASSIUM (BEAKER) (test 4.2 meq/L 3.5-5.1 sdty=516) CHLORIDE (BEAKER) (test 110 meq/L 98-107 yxqu=307) CO2 (BEAKER) (test 25 meq/L 22-29 pqgr=342) BLOOD UREA NITROGEN 34 mg/dL 7-21 (BEAKER) (test cbfl=842) CREATININE (BEAKER) (test 1.77 mg/dL 0.57-1.25 njhl=168) GLUCOSE RANDOM (BEAKER) 128 mg/dL 70-105 (test kikp=442) CALCIUM (BEAKER) (test 9.1 mg/dL 8.4-10.2 amld=111) EGFR (BEAKER) (test 39 mL/min/1.73 sq m ESTIMATED GFR IS NOT mdlk=4587) ACCURATE CREATININE CLEARANCE IN PREDICTING GLOMERULAR FILTRATION RATE. ESTIMATED GFR IS NOT APPLICABLE FOR DIALYSIS PATIENTS. HEMOGLOBIN AND [id number] 12:09:00 Test Item Value Reference Range Comments HEMOGLOBIN (BEAKER) (test rryk=517) 7.3 GM/DL 13.7-17.5 HEMATOCRIT (BEAKER) (test ukki=133) 23.0 % 40.1-51.0 [id number] 07:19:00 Test Item Value Reference Range Comments PHOSPHORUS (BEAKER) (test pbdl=381) 3.0 mg/dL 2.3-4.7 [id number] 07:19:00 Test Item Value Reference Range Comments MAGNESIUM (BEAKER) (test zhoi=320) 2.4 mg/dL 1.6-2.6 BASIC METABOLIC [id number] 07:19:00 Test Item Value Reference Range Comments SODIUM (BEAKER) (test 141 meq/L 136-145 iywg=799) POTASSIUM (BEAKER) (test 4.3 meq/L 3.5-5.1 smnc=349) CHLORIDE (BEAKER) (test 111 meq/L 98-107 ytfx=059) CO2 (BEAKER) (test 24 meq/L 22-29 ubbw=733) BLOOD UREA NITROGEN 33 mg/dL 7-21 (BEAKER) (test dwhc=178) CREATININE (BEAKER) (test 1.75 mg/dL 0.57-1.25 vmgv=755) GLUCOSE RANDOM (BEAKER) 119 mg/dL 70-105 (test kkxr=815) CALCIUM (BEAKER) (test 8.7 mg/dL 8.4-10.2 npqb=285) EGFR (BEAKER) (test 39 mL/min/1.73 sq m ESTIMATED GFR IS NOT gpsk=6102) ACCURATE CREATININE CLEARANCE IN PREDICTING GLOMERULAR FILTRATION RATE. ESTIMATED GFR IS NOT APPLICABLE FOR DIALYSIS PATIENTS. CBC (HEMOGRAM ONLY)2018-12-07 05:27:00 Test Item Value Reference Range Comments WHITE BLOOD CELL COUNT (BEAKER) (test cwbj=228) 14.5 K/ L 3.5-10.5 RED BLOOD CELL COUNT (BEAKER) (test iyhg=286) 2.29 M/ L 4.63-6.08 HEMOGLOBIN (BEAKER) (test ixhf=801) 7.3 GM/DL 13.7-17.5 HEMATOCRIT (BEAKER) (test swjl=433) 22.2 % 40.1-51.0 MEAN CORPUSCULAR VOLUME (BEAKER) (test efih=578) 96.9 fL 79.0-92.2 MEAN CORPUSCULAR HEMOGLOBIN (BEAKER) (test 31.9 pg 25.7-32.2 nvgu=375) MEAN CORPUSCULAR HEMOGLOBIN CONC (BEAKER) (test 32.9 GM/DL 32.3-36.5 mohw=014) RED CELL DISTRIBUTION WIDTH (BEAKER) (test 15.2 % 11.6-14.4 ozoi=322) PLATELET COUNT (BEAKER) (test jipx=805) 159 K/CU MM 150-450 MEAN PLATELET VOLUME (BEAKER) (test jecz=511) 11.9 fL 9.4-12.4 NUCLEATED RED BLOOD CELLS (BEAKER) (test 0 /100 WBC 0-0 bfjj=372) RAD, CHEST, 1 VIEW, NON [id number] 05:15:00Reason for exam:->post operative cardiacShould this be [...] Henriquez Verified Date/Time: 12/07/2018 05:15:09 Reading Location: [address] Transitional Reading Room BASIC METABOLIC [id number] 00:00:00 Test Item Value Reference Range Comments SODIUM (BEAKER) (test 141 meq/L 136-145 qzag=108) POTASSIUM (BEAKER) (test 4.4 meq/L 3.5-5.1 ttal=288) CHLORIDE (BEAKER) (test 110 meq/L 98-107 xkej=156) CO2 (BEAKER) (test 22 meq/L 22-29 tbzc=079) BLOOD UREA NITROGEN 32 mg/dL 7-21 (BEAKER) (test ysnv=937) CREATININE (BEAKER) (test 1.78 mg/dL 0.57-1.25 vhua=663) GLUCOSE RANDOM (BEAKER) 153 mg/dL 70-105 (test xlbj=327) CALCIUM (BEAKER) (test 8.9 mg/dL 8.4-10.2 kiba=203) EGFR (BEAKER) (test 38 mL/min/1.73 sq m ESTIMATED GFR IS NOT lkmg=7890) ACCURATE CREATININE CLEARANCE IN PREDICTING GLOMERULAR FILTRATION RATE. ESTIMATED GFR IS NOT APPLICABLE FOR DIALYSIS PATIENTS. HEMOGLOBIN AND [id number] 22:57:00 Test Item Value Reference Range Comments HEMOGLOBIN (BEAKER) (test elyh=830) 6.9 GM/DL 13.7-17.5 HEMATOCRIT (BEAKER) (test nqly=619) 21.1 % 40.1-51.0 BASIC METABOLIC [id number] 16:15:00 Test Item Value Reference Range Comments SODIUM (BEAKER) (test 140 meq/L 136-145 mxiq=582) POTASSIUM (BEAKER) (test 5.0 meq/L 3.5-5.1 Specimen slightly diab=718) hemolyzed CHLORIDE (BEAKER) (test 110 meq/L 98-107 fcqz=051) CO2 (BEAKER) (test 22 meq/L 22-29 uhaq=321) BLOOD UREA NITROGEN 30 mg/dL 7-21 (BEAKER) (test tlso=716) CREATININE (BEAKER) (test 1.77 mg/dL 0.57-1.25 Specimen slightly ndpn=364) hemolyzed GLUCOSE RANDOM (BEAKER) 146 mg/dL 70-105 (test eqwh=073) CALCIUM (BEAKER) (test 8.8 mg/dL 8.4-10.2 dpqp=912) EGFR (BEAKER) (test 39 mL/min/1.73 sq m ESTIMATED GFR IS NOT xofz=2808) ACCURATE CREATININE CLEARANCE IN PREDICTING GLOMERULAR FILTRATION RATE. ESTIMATED GFR IS NOT APPLICABLE FOR DIALYSIS PATIENTS. HEMOGLOBIN AND [id number] 15:58:00 Test Item Value Reference Range Comments HEMOGLOBIN (BEAKER) (test rhcr=263) 7.2 GM/DL 13.7-17.5 HEMATOCRIT (BEAKER) (test infr=775) 22.0 % 40.1-51.0 PROTEIN ELECTROPHORESIS, [id number] 11:34:00 Test Item Value Reference Range Comments ALBUMIN FRACTION (BEAKER) 3.1 g/dL 3.5-5.5 (test wlaq=820) ALPHA 1 FRACTION (BEAKER) 0.2 g/dL 0.2-0.4 (test hyyz=064) ALPHA 2 FRACTION (BEAKER) 0.8 g/dL 0.5-0.9 (test poga=575) BETA FRACTION (BEAKER) (test 0.8 g/dL 0.6-1.1 ccqr=388) GAMMA GLOBULIN FRACTION 1.1 g/dL 0.7-1.7 (BEAKER) (test tqtw=322) INTERPRETATION-119 (BEAKER) All fractions present in (test lhnc=0818) expected distribution with slight decrease in serum albumin. No monoclonal bands detected. [id number] Terrie Rubio MD (BEAKER) (test jcit=1961) (electronic signature) PROTEIN TOTAL SERUM, SPEP 6.1 gm/dL 6.0-8.3 (BEAKER) (test pjsz=6931) [id number] 10:57:00 Test Item Value Reference Range Comments POTASSIUM (BEAKER) (test 5.4 meq/L 3.5-5.1 Specimen slightly hemolyzed onds=623) Every 8 hours PRN for Creatinine greater than or equal to 2 mg/dL.CBC W/PLT COUNT & AUTO [id number] 10:43:00 Test Item Value Reference Range Comments WHITE BLOOD CELL COUNT (BEAKER) (test ngzi=729) 11.6 K/ L 3.5-10.5 RED BLOOD CELL COUNT (BEAKER) (test dpap=062) 2.33 M/ L 4.63-6.08 HEMOGLOBIN (BEAKER) (test raiu=923) 7.5 GM/DL 13.7-17.5 HEMATOCRIT (BEAKER) (test ftbh=802) 23.2 % 40.1-51.0 MEAN CORPUSCULAR VOLUME (BEAKER) (test wohg=724) 99.6 fL 79.0-92.2 MEAN CORPUSCULAR HEMOGLOBIN (BEAKER) (test 32.2 pg 25.7-32.2 zogt=485) MEAN CORPUSCULAR HEMOGLOBIN CONC (BEAKER) (test 32.3 GM/DL 32.3-36.5 qjtl=205) RED CELL DISTRIBUTION WIDTH (BEAKER) (test 13.7 % 11.6-14.4 wqht=911) PLATELET COUNT (BEAKER) (test hbds=799) 203 K/CU MM 150-450 MEAN PLATELET VOLUME (BEAKER) (test mghp=197) 11.8 fL 9.4-12.4 NUCLEATED RED BLOOD CELLS (BEAKER) (test 0 /100 WBC 0-0 fapf=350) NEUTROPHILS RELATIVE PERCENT (BEAKER) (test 85 % xxfy=983) LYMPHOCYTES RELATIVE PERCENT (BEAKER) (test 8 % jmdr=170) MONOCYTES RELATIVE PERCENT (BEAKER) (test 6 % zoes=588) EOSINOPHILS RELATIVE PERCENT (BEAKER) (test 0 % rxfs=282) BASOPHILS RELATIVE PERCENT (BEAKER) (test 0 % xvee=334) NEUTROPHILS ABSOLUTE COUNT (BEAKER) (test 9.92 K/ L 1.78-5.38 rplr=390) LYMPHOCYTES ABSOLUTE COUNT (BEAKER) (test 0.95 K/ L 1.32-3.57 fohc=839) MONOCYTES ABSOLUTE COUNT (BEAKER) (test 0.68 K/ L 0.30-0.82 pssu=911) EOSINOPHILS ABSOLUTE COUNT (BEAKER) (test 0.00 K/ L 0.04-0.54 kdly=451) BASOPHILS ABSOLUTE COUNT (BEAKER) (test 0.01 K/ L 0.01-0.08 sefu=639) IMMATURE GRANULOCYTES-RELATIVE PERCENT (BEAKER) 1 % 0-1 (test fazk=4100) RAD, CHEST, 1 VIEW, NON [id number] 08:09:00Reason for exam:->post operative cardiacShould this be [...] MDReport Verified Date/Time: 12/06/2018 08:09:04 Reading Location: [facility] [id number] Ortho Consult ReadingRoom POTASSIUM-STAT [id number] 06:31:00 Test Item Value Reference Range Comments POTASSIUM (BEAKER) (test gixo=143) 4.9 meq/L 3.6-5.5 BLOOD GAS, [id number] 06:20:00 Test Item Value Reference Range Comments PH ARTERIAL (BEAKER) (test ghuc=641) 7.40 7.35-7.45 PCO2 ARTERIAL (BEAKER) (test qgvj=851) 37 mmHg 35-45 PO2 ARTERIAL (BEAKER) (test lxmd=450) 78 mmHg 80-90 O2 SATURATION ARTERIAL (BEAKER) (test ivgk=113) 95.7 % 96.0-97.0 HCO3 ARTERIAL (BEAKER) (test omqo=061) 22 mmol/L 21-29 BASE EXCESS ARTERIAL (BEAKER) (test rpoj=522) -2.4 mmol/L -2.0-3.0 PATIENT TEMPERATURE (BEAKER) (test psjq=4464) 36.8 C FIO2 (BEAKER) (test tgns=4690) 21.0 % [id number] 06:11:00 Test Item Value Reference Range Comments PHOSPHORUS (BEAKER) (test jnmb=572) 4.3 mg/dL 2.3-4.7 [id number] 06:11:00 Test Item Value Reference Range Comments MAGNESIUM (BEAKER) (test aiiv=126) 2.3 mg/dL 1.6-2.6 BASIC METABOLIC [id number] 06:11:00 Test Item Value Reference Range Comments SODIUM (BEAKER) (test 140 meq/L 136-145 utbu=889) POTASSIUM (BEAKER) (test 5.6 meq/L 3.5-5.1 txiv=691) CHLORIDE (BEAKER) (test 111 meq/L 98-107 qeyv=553) CO2 (BEAKER) (test 21 meq/L 22-29 ycrz=425) BLOOD UREA NITROGEN 25 mg/dL 7-21 (BEAKER) (test zmsw=077) CREATININE (BEAKER) (test 1.74 mg/dL 0.57-1.25 lfkf=924) GLUCOSE RANDOM (BEAKER) 171 mg/dL 70-105 (test zdpr=652) CALCIUM (BEAKER) (test 8.8 mg/dL 8.4-10.2 antk=705) EGFR (BEAKER) (test 39 mL/min/1.73 sq m ESTIMATED GFR IS NOT wkoq=8222) ACCURATE CREATININE CLEARANCE IN PREDICTING GLOMERULAR FILTRATION RATE. ESTIMATED GFR IS NOT APPLICABLE FOR DIALYSIS PATIENTS. CBC (HEMOGRAM ONLY)2018-12-06 05:01:00 Test Item Value Reference Range Comments WHITE BLOOD CELL COUNT (BEAKER) (test cjsr=300) 11.6 K/ L 3.5-10.5 RED BLOOD CELL COUNT (BEAKER) (test njgh=205) 2.45 M/ L 4.63-6.08 HEMOGLOBIN (BEAKER) (test sqdh=484) 7.7 GM/DL 13.7-17.5 HEMATOCRIT (BEAKER) (test flcr=594) 24.5 % 40.1-51.0 MEAN CORPUSCULAR VOLUME (BEAKER) (test olxj=103) 100.0 fL 79.0-92.2 MEAN CORPUSCULAR HEMOGLOBIN (BEAKER) (test 31.4 pg 25.7-32.2 rblt=474) MEAN CORPUSCULAR HEMOGLOBIN CONC (BEAKER) (test 31.4 GM/DL 32.3-36.5 nymj=191) RED CELL DISTRIBUTION WIDTH (BEAKER) (test 13.7 % 11.6-14.4 ttvh=596) PLATELET COUNT (BEAKER) (test ztva=344) 203 K/CU MM 150-450 MEAN PLATELET VOLUME (BEAKER) (test nlfv=974) 11.2 fL 9.4-12.4 NUCLEATED RED BLOOD CELLS (BEAKER) (test 0 /100 WBC 0-0 fofx=517) PLATELET [id number] 04:57:00 Test Item Value Reference Range Comments PLATELET COUNT (BEAKER) (test jwgr=362) 203 K/CU MM 150-450 RAD, CHEST, 1 VIEW, NON [id number] 00:32:00Reason for exam:->chest tubesFINAL REPORT EXAMINATION: AP [...] MDReport Verified Date/Time: 12/06/2018 00:32:25 Reading Location: [address] Reading Room Electronically signedby: OSMEL MCCANN M.D. on 12/06/2018 12:32 [id number] 23:36:00 Test Item Value Reference Range Comments PROTIME (BEAKER) (test aniu=741) 16.6 seconds 11.7-14.7 INR (BEAKER) (test ridc=488) 1.3 <=5.9 PARTIAL THROMBOPLASTIN TIME (BEAKER) (test 32.4 seconds 22.5-36.0 lkvz=689) RECOMMENDED COUMADIN/WARFARIN INR THERAPY RANGESSTANDARD DOSE: 2.0 - 3.0 Includes: PROPHYLAXIS forvenous thrombosis, systemic embolization; TREATMENT for venous thrombosis and/or pulmonary embolus.HIGH RISK: Target INR is 2.5-3.5 for patients with mechanical heart valves.[id number] 23:35:00 Test Item Value Reference Range Comments FIBRINOGEN LEVEL (BEAKER) (test rltm=340) 340 mg/dl 225-434 CBC W/PLT COUNT & AUTO [id number] 23:15:00 Test Item Value Reference Range Comments WHITE BLOOD CELL COUNT (BEAKER) (test weuq=938) 11.8 K/ L 3.5-10.5 RED BLOOD CELL COUNT (BEAKER) (test xpbh=129) 2.69 M/ L 4.63-6.08 HEMOGLOBIN (BEAKER) (test hokf=208) 8.6 GM/DL 13.7-17.5 HEMATOCRIT (BEAKER) (test yvag=263) 26.4 % 40.1-51.0 MEAN CORPUSCULAR VOLUME (BEAKER) (test awvt=257) 98.1 fL 79.0-92.2 MEAN CORPUSCULAR HEMOGLOBIN (BEAKER) (test 32.0 pg 25.7-32.2 xysl=815) MEAN CORPUSCULAR HEMOGLOBIN CONC (BEAKER) (test 32.6 GM/DL 32.3-36.5 odav=107) RED CELL DISTRIBUTION WIDTH (BEAKER) (test 13.4 % 11.6-14.4 tlkg=175) PLATELET COUNT (BEAKER) (test gvul=551) 160 K/CU MM 150-450 MEAN PLATELET VOLUME (BEAKER) (test pudj=863) 11.1 fL 9.4-12.4 NUCLEATED RED BLOOD CELLS (BEAKER) (test 0 /100 WBC 0-0 qilr=818) NEUTROPHILS RELATIVE PERCENT (BEAKER) (test 87 % qrtj=289) LYMPHOCYTES RELATIVE PERCENT (BEAKER) (test 5 % sahr=596) MONOCYTES RELATIVE PERCENT (BEAKER) (test 6 % mkxn=472) EOSINOPHILS RELATIVE PERCENT (BEAKER) (test 0 % cjuu=378) BASOPHILS RELATIVE PERCENT (BEAKER) (test 0 % xztu=511) NEUTROPHILS ABSOLUTE COUNT (BEAKER) (test 10.30 K/ L 1.78-5.38 fdeu=132) LYMPHOCYTES ABSOLUTE COUNT (BEAKER) (test 0.64 K/ L 1.32-3.57 kzys=318) MONOCYTES ABSOLUTE COUNT (BEAKER) (test 0.75 K/ L 0.30-0.82 dlap=474) EOSINOPHILS ABSOLUTE COUNT (BEAKER) (test 0.00 K/ L 0.04-0.54 dfjm=434) BASOPHILS ABSOLUTE COUNT (BEAKER) (test 0.03 K/ L 0.01-0.08 sslx=227) IMMATURE GRANULOCYTES-RELATIVE PERCENT (BEAKER) 1 % 0-1 (test xldj=1319) BLOOD GAS, [id number] 23:13:00 Test Item Value Reference Range Comments PH ARTERIAL (BEAKER) (test npgm=456) 7.38 7.35-7.45 PCO2 ARTERIAL (BEAKER) (test swtu=903) 37 mmHg 35-45 PO2 ARTERIAL (BEAKER) (test tfsf=439) 165 mmHg 80-90 O2 SATURATION ARTERIAL (BEAKER) (test pinz=750) 99.1 % 96.0-97.0 HCO3 ARTERIAL (BEAKER) (test aoee=118) 21 mmol/L 21-29 BASE EXCESS ARTERIAL (BEAKER) (test pmob=995) -3.2 mmol/L -2.0-3.0 PATIENT TEMPERATURE (BEAKER) (test pnvh=2621) 37.2 C FIO2 (BEAKER) (test igkm=4070) 36.0 % GLUCOSE-STAT [id number] 23:13:00 Test Item Value Reference Range Comments GLUCOSE RANDOM (BEAKER) (test nmuk=042) 172 mg/dL 70-110 HGB/HCT (H&H) - STAT [id number] 23:13:00 Test Item Value Reference Range Comments HEMOGLOBIN (BEAKER) (test xygq=657) 9.1 g/dL 13.0-16.8 HEMATOCRIT (BEAKER) (test gkdd=186) 27.0 % 40.0-50.0 SODIUM NA-STAT [id number] 23:09:00 Test Item Value Reference Range Comments SODIUM (BEAKER) (test bmmn=625) 136 meq/L 135-148 POTASSIUM-STAT [id number] 23:09:00 Test Item Value Reference Range Comments POTASSIUM (BEAKER) (test tlcb=885) 5.0 meq/L 3.6-5.5 RAD, CHEST, 1 VIEW, NON [id number] 22:57:00while patient is intubated or has chest [...] Griffith Verified Date/Time: 2018 22:57:32 Reading Location: [facility] C013W Consult Reading Room [id number] 22:51:00 Test Item Value Reference Range Comments ACTIVATED CLOTTING TIME 120 sec TESTED AT [facility] [address] (BEAKER) (test btsb=283) [place] [address] [id number] 22:51:00 Test Item Value Reference Range Comments ACTIVATED CLOTTING TIME 521 sec TESTED AT [place] [address] [address] (BEAKER) (test zrcb=453) [place] [address] [id number] 22:51:00 Test Item Value Reference Range Comments ACTIVATED CLOTTING TIME 527 sec TESTED AT [place] [address] [address] (BEAKER) (test fcpl=881) [place] [address] [id number] 22:51:00 Test Item Value Reference Range Comments ACTIVATED CLOTTING TIME 483 sec TESTED AT [place] [address] [facility] (BEAKER) (test kweu=375) [place] [address] [id number] 22:51:00 Test Item Value Reference Range Comments ACTIVATED CLOTTING TIME 483 sec TESTED AT [address] (BEAKER) (test uwdz=902) [place] [address] [id number] 22:51:00 Test Item Value Reference Range Comments ACTIVATED CLOTTING TIME 698 sec [address] (BEAKER) (test uulh=136) [place] [address] [id number] 22:51:00 Test Item Value Reference Range Comments ACTIVATED CLOTTING TIME 439 sec TESTED AT [address] (BEAKER) (test grbu=722) [place] [address] BLOOD GAS, [id number] 21:49:00 Test Item Value Reference Range Comments PH ARTERIAL (BEAKER) (test alqu=100) 7.41 7.35-7.45 PCO2 ARTERIAL (BEAKER) (test fmfm=779) 36 mmHg 35-45 PO2 ARTERIAL (BEAKER) (test sksu=978) 157 mmHg 80-90 O2 SATURATION ARTERIAL (BEAKER) (test bmcj=413) 99.1 % 96.0-97.0 HCO3 ARTERIAL (BEAKER) (test ncij=956) 22 mmol/L 21-29 BASE EXCESS ARTERIAL (BEAKER) (test yihr=702) -2.1 mmol/L -2.0-3.0 PATIENT TEMPERATURE (BEAKER) (test wzum=0153) 36.7 C FIO2 (BEAKER) (test zyur=0690) 40.0 % CALCIUM, [id number] 19:50:00 Test Item Value Reference Range Comments CALCIUM IONIZED (BEAKER) (test enkx=292) 1.11 mmol/L 1.12-1.27 PH, BLOOD (BEAKER) (test uwzd=0264) 7.51 HGB/HCT (H&H) - STAT [id number] 19:50:00 Test Item Value Reference Range Comments HEMOGLOBIN (BEAKER) (test omlr=080) 9.3 g/dL 13.0-16.8 HEMATOCRIT (BEAKER) (test iuqw=454) 27.0 % 40.0-50.0 THROMBOELASTOGRAPH (TEG)2018-12-05 18:56:00 Test Item Value Reference Range Comments TEG ACTIVATED CLOTTING TIME (BEAKER) (test 13.0 minutes 4.0-7.0 edmq=6909) TEG FIBRINOGEN ACTIVITY (BEAKER) (test 55.7 degrees 61.0-73.0 xklu=6230) TEG PLT. AGGREGATION (BEAKER) (test dekq=7494) 57.3 MM 55.0-65.0 TEG FIBRINOLYSIS (BEAKER) (test rknm=5775) 0.0 % 0.0-5.0 [facility] ACTIVATED CLOTTING TIME (BEAKER) (test 7.2 minutes 4.0-7.0 kfpj=6507) [facility] FIBRINOGEN ACTIVITY (BEAKER) (test 71.5 degrees 61.0-73.0 szgk=9376) [facility] PLT. AGGREGATION (BEAKER) (test radp=5961) 56.9 MM 55.0-65.0 [facility] FIBRINOLYSIS (BEAKER) (test lubd=9183) 0.0 % 0.0-5.0 [id number] 17:58:00 Test Item Value Reference Range Comments PROTIME (BEAKER) (test sefd=327) 16.5 seconds 11.7-14.7 INR (BEAKER) (test xxpx=383) 1.3 <=5.9 PARTIAL THROMBOPLASTIN TIME (BEAKER) (test 44.1 seconds 22.5-36.0 fpgd=407) RECOMMENDED COUMADIN/WARFARIN INR THERAPY RANGESSTANDARD DOSE: 2.0 - 3.0 Includes: PROPHYLAXIS forvenous thrombosis, systemic embolization; TREATMENT for venous thrombosis and/or pulmonary embolus.HIGH RISK: Target INR is 2.5-3.5 for patients with mechanical heart valves.PROTHROMBIN [id number] 17:57: 00 Test Item Value Reference Range Comments PROTIME (BEAKER) (test egwu=500) 16.5 seconds 11.7-14.7 INR (BEAKER) (test qmqq=313) 1.3 <=5.9 RECOMMENDED COUMADIN/WARFARIN INR THERAPY RANGESSTANDARD DOSE: 2.0 - 3.0 Includes: PROPHYLAXIS forvenous thrombosis, systemic embolization; TREATMENT for venous thrombosis and/or pulmonary embolus.HIGH RISK: Target INR is 2.5-3.5 for patients with mechanical heart valves.[id number] 17:57:00 Test Item Value Reference Range Comments FIBRINOGEN LEVEL (BEAKER) (test xcqk=771) 347 mg/dl 225-434 [id number] 17:27:00 Test Item Value Reference Range Comments PHOSPHORUS (BEAKER) (test inal=514) 3.3 mg/dL 2.3-4.7 [id number] 17:27:00 Test Item Value Reference Range Comments MAGNESIUM (BEAKER) (test vfnq=398) 2.6 mg/dL 1.6-2.6 BASIC METABOLIC [id number] 17:27:00 Test Item Value Reference Range Comments SODIUM (BEAKER) (test 141 meq/L 136-145 sdur=839) POTASSIUM (BEAKER) (test 4.1 meq/L 3.5-5.1 cuzq=694) CHLORIDE (BEAKER) (test 111 meq/L 98-107 qoeg=850) CO2 (BEAKER) (test 22 meq/L 22-29 sijt=253) BLOOD UREA NITROGEN 20 mg/dL 7-21 (BEAKER) (test crky=418) CREATININE (BEAKER) (test 1.55 mg/dL 0.57-1.25 loxw=320) GLUCOSE RANDOM (BEAKER) 140 mg/dL 70-105 (test zqjw=636) CALCIUM (BEAKER) (test 9.1 mg/dL 8.4-10.2 ehzw=261) EGFR (BEAKER) (test 45 mL/min/1.73 sq m ESTIMATED GFR IS NOT cswv=1308) ACCURATE CREATININE CLEARANCE IN PREDICTING GLOMERULAR FILTRATION RATE. ESTIMATED GFR IS NOT APPLICABLE FOR DIALYSIS PATIENTS. LACTIC ACID, [id number] 17:21:00 Test Item Value Reference Range Comments LACTATE BLOOD ARTERIAL (2) (BEAKER) (test 1.9 mmol/L 0.5-2.2 cydm=9357) OXYGEN SATURATION, [id number] 17:10:00 Test Item Value Reference Range Comments O2 SATURATION (MEASURED) (BEAKER) (test qjep=0312) 81.3 % CBC W/PLT COUNT & AUTO [id number] 17:07:00 Test Item Value Reference Range Comments WHITE BLOOD CELL COUNT (BEAKER) (test aapw=904) 12.6 K/ L 3.5-10.5 RED BLOOD CELL COUNT (BEAKER) (test prgb=495) 2.99 M/ L 4.63-6.08 HEMOGLOBIN (BEAKER) (test gngy=750) 9.8 GM/DL 13.7-17.5 HEMATOCRIT (BEAKER) (test dhlr=012) 29.4 % 40.1-51.0 MEAN CORPUSCULAR VOLUME (BEAKER) (test hdck=288) 98.3 fL 79.0-92.2 MEAN CORPUSCULAR HEMOGLOBIN (BEAKER) (test 32.8 pg 25.7-32.2 ofdt=686) MEAN CORPUSCULAR HEMOGLOBIN CONC (BEAKER) (test 33.3 GM/DL 32.3-36.5 tgyq=918) RED CELL DISTRIBUTION WIDTH (BEAKER) (test 13.3 % 11.6-14.4 ytfm=032) PLATELET COUNT (BEAKER) (test gyzu=324) 143 K/CU MM 150-450 MEAN PLATELET VOLUME (BEAKER) (test rhpw=326) 11.2 fL 9.4-12.4 NUCLEATED RED BLOOD CELLS (BEAKER) (test 0 /100 WBC 0-0 onbd=494) NEUTROPHILS RELATIVE PERCENT (BEAKER) (test 85 % oszf=017) LYMPHOCYTES RELATIVE PERCENT (BEAKER) (test 7 % haxd=582) MONOCYTES RELATIVE PERCENT (BEAKER) (test 6 % dsyk=966) EOSINOPHILS RELATIVE PERCENT (BEAKER) (test 0 % gcjb=747) BASOPHILS RELATIVE PERCENT (BEAKER) (test 0 % rsjy=695) NEUTROPHILS ABSOLUTE COUNT (BEAKER) (test 10.74 K/ L 1.78-5.38 zsye=297) LYMPHOCYTES ABSOLUTE COUNT (BEAKER) (test 0.93 K/ L 1.32-3.57 fvlv=887) MONOCYTES ABSOLUTE COUNT (BEAKER) (test 0.81 K/ L 0.30-0.82 gdqq=853) EOSINOPHILS ABSOLUTE COUNT (BEAKER) (test 0.05 K/ L 0.04-0.54 esav=088) BASOPHILS ABSOLUTE COUNT (BEAKER) (test 0.05 K/ L 0.01-0.08 ooxt=038) IMMATURE GRANULOCYTES-RELATIVE PERCENT (BEAKER) 0 % 0-1 (test dcru=4923) SODIUM NA-STAT [id number] 17:05:00 Test Item Value Reference Range Comments SODIUM (BEAKER) (test lfhk=486) 138 meq/L 135-148 POTASSIUM-STAT [id number] 17:05:00 Test Item Value Reference Range Comments POTASSIUM (BEAKER) (test hyai=210) 3.9 meq/L 3.6-5.5 BLOOD GAS, [id number] 17:05:00 Test Item Value Reference Range Comments PH ARTERIAL (BEAKER) (test bwtz=115) 7.44 7.35-7.45 PCO2 ARTERIAL (BEAKER) (test djnp=491) 35 mmHg 35-45 PO2 ARTERIAL (BEAKER) (test jnet=888) 294 mmHg 80-90 O2 SATURATION ARTERIAL (BEAKER) (test loib=750) 99.7 % 96.0-97.0 HCO3 ARTERIAL (BEAKER) (test sfff=897) 23 mmol/L 21-29 BASE EXCESS ARTERIAL (BEAKER) (test kyhm=242) -1.3 mmol/L -2.0-3.0 PATIENT TEMPERATURE (BEAKER) (test dxif=8944) 34.6 C FIO2 (BEAKER) (test uanp=4894) 80.0 % GLUCOSE-STAT [id number] 17:05:00 Test Item Value Reference Range Comments GLUCOSE RANDOM (BEAKER) (test mbkw=824) 140 mg/dL 70-110 HGB/HCT (H&H) - STAT [id number] 17:05:00 Test Item Value Reference Range Comments HEMOGLOBIN (BEAKER) (test azfh=253) 10.1 g/dL 13.0-16.8 HEMATOCRIT (BEAKER) (test wfjn=997) 30.0 % 40.0-50.0 THROMBOELASTOGRAPH (TEG)2018-12-05 15:43:00 Test Item Value Reference Range Comments TEG ACTIVATED CLOTTING TIME (BEAKER) (test 4.8 minutes 4.0-7.0 kudg=8670) TEG FIBRINOGEN ACTIVITY (BEAKER) (test 73.0 degrees 61.0-73.0 stnb=0353) TEG PLT. AGGREGATION (BEAKER) (test iriw=2309) 63.4 MM 55.0-65.0 [facility] ACTIVATED CLOTTING TIME (BEAKER) (test 4.9 minutes 4.0-7.0 pocr=2761) [facility] FIBRINOGEN ACTIVITY (BEAKER) (test 73.1 degrees 61.0-73.0 hfyy=2499) [facility] PLT. AGGREGATION (BEAKER) (test pnea=6681) 63.7 MM 55.0-65.0 [id number] 14:59:00 Test Item Value Reference Range Comments FIBRINOGEN LEVEL (BEAKER) (test apts=175) 368 mg/dl 225-434 [id number] 14:59:00 Test Item Value Reference Range Comments PROTIME (BEAKER) (test hfkl=386) 17.1 seconds 11.7-14.7 INR (BEAKER) (test hbus=302) 1.4 <=5.9 PARTIAL THROMBOPLASTIN TIME (BEAKER) (test 27.8 seconds 22.5-36.0 wwpi=332) RECOMMENDED COUMADIN/WARFARIN INR THERAPY RANGESSTANDARD DOSE: 2.0 - 3.0 Includes: PROPHYLAXIS forvenous thrombosis, systemic embolization; TREATMENT for venous thrombosis and/or pulmonary embolus.HIGH RISK: Target INR is 2.5-3.5 for patients with mechanical heart valves.CBC (HEMOGRAM ONLY)2018-12-05 14:51:00 Test Item Value Reference Range Comments WHITE BLOOD CELL COUNT (BEAKER) (test qocg=442) 15.7 K/ L 3.5-10.5 RED BLOOD CELL COUNT (BEAKER) (test aydb=666) 3.11 M/ L 4.63-6.08 HEMOGLOBIN (BEAKER) (test edks=076) 10.0 GM/DL 13.7-17.5 HEMATOCRIT (BEAKER) (test znoq=593) 30.7 % 40.1-51.0 MEAN CORPUSCULAR VOLUME (BEAKER) (test tvta=811) 98.7 fL 79.0-92.2 MEAN CORPUSCULAR HEMOGLOBIN (BEAKER) (test 32.2 pg 25.7-32.2 vdvl=356) MEAN CORPUSCULAR HEMOGLOBIN CONC (BEAKER) (test 32.6 GM/DL 32.3-36.5 xisk=310) RED CELL DISTRIBUTION WIDTH (BEAKER) (test 13.2 % 11.6-14.4 jsdr=430) PLATELET COUNT (BEAKER) (test oaxl=326) 111 K/CU MM 150-450 MEAN PLATELET VOLUME (BEAKER) (test nqlz=577) 11.8 fL 9.4-12.4 NUCLEATED RED BLOOD CELLS (BEAKER) (test 0 /100 WBC 0-0 owyn=579) BLOOD GAS, [id number] 14:15:00 Test Item Value Reference Range Comments PH ARTERIAL (BEAKER) (test evqv=826) 7.37 7.35-7.45 PCO2 ARTERIAL (BEAKER) (test bzsx=468) 45 mmHg 35-45 PO2 ARTERIAL (BEAKER) (test uqsa=836) 196 mmHg 80-90 O2 SATURATION ARTERIAL (BEAKER) (test ydwu=254) 99.3 % 96.0-97.0 HCO3 ARTERIAL (BEAKER) (test ehug=109) 26 mmol/L 21-29 BASE EXCESS ARTERIAL (BEAKER) (test bldk=286) 0.1 mmol/L -2.0-3.0 PATIENT TEMPERATURE (BEAKER) (test hvgc=9165) 35.8 C FIO2 (BEAKER) (test lven=9896) 95.0 % GLUCOSE-STAT [id number] 14:15:00 Test Item Value Reference Range Comments GLUCOSE RANDOM (BEAKER) (test ibek=157) 196 mg/dL 70-110 HGB/HCT (H&H) - STAT [id number] 14:15:00 Test Item Value Reference Range Comments HEMOGLOBIN (BEAKER) (test tdnd=524) 9.9 g/dL 13.0-16.8 HEMATOCRIT (BEAKER) (test ylds=287) 29.0 % 40.0-50.0 SODIUM NA-STAT [id number] 14:13:00 Test Item Value Reference Range Comments SODIUM (BEAKER) (test oxyj=215) 136 meq/L 135-148 POTASSIUM-STAT [id number] 14:13:00 Test Item Value Reference Range Comments POTASSIUM (BEAKER) (test fzxd=360) 4.9 meq/L 3.6-5.5 BLOOD GAS, [id number] 13:59:00 Test Item Value Reference Range Comments PH ARTERIAL (BEAKER) (test gshq=723) 7.38 7.35-7.45 PCO2 ARTERIAL (BEAKER) (test ghyi=773) 45 mmHg 35-45 PO2 ARTERIAL (BEAKER) (test iaph=356) 317 mmHg 80-90 O2 SATURATION ARTERIAL (BEAKER) (test xdsb=798) 99.7 % 96.0-97.0 HCO3 ARTERIAL (BEAKER) (test roll=275) 26 mmol/L 21-29 BASE EXCESS ARTERIAL (BEAKER) (test btwv=008) 0.8 mmol/L -2.0-3.0 PATIENT TEMPERATURE (BEAKER) (test chhp=9649) 36.7 C FIO2 (BEAKER) (test qalh=1182) 90.0 % POTASSIUM-STAT [id number] 13:59:00 Test Item Value Reference Range Comments POTASSIUM (BEAKER) (test snyu=659) 5.7 meq/L 3.6-5.5 GLUCOSE-STAT [id number] 13:59:00 Test Item Value Reference Range Comments GLUCOSE RANDOM (BEAKER) (test yanz=459) 221 mg/dL 70-110 HGB/HCT (H&H) - STAT [id number] 13:59:00 Test Item Value Reference Range Comments HEMOGLOBIN (BEAKER) (test kdsw=792) 10.2 g/dL 13.0-16.8 HEMATOCRIT (BEAKER) (test rcdp=903) 30.0 % 40.0-50.0 SODIUM NA-STAT [id number] 13:44:00 Test Item Value Reference Range Comments SODIUM (BEAKER) (test glqb=394) 135 meq/L 135-148 BLOOD GAS, [id number] 13:11:00 Test Item Value Reference Range Comments PH ARTERIAL (BEAKER) (test bnlh=677) 7.41 7.35-7.45 PCO2 ARTERIAL (BEAKER) (test ippb=530) 37 mmHg 35-45 PO2 ARTERIAL (BEAKER) (test ycug=713) 310 mmHg 80-90 O2 SATURATION ARTERIAL (BEAKER) (test hzpp=122) 99.7 % 96.0-97.0 HCO3 ARTERIAL (BEAKER) (test tmob=085) 24 mmol/L 21-29 BASE EXCESS ARTERIAL (BEAKER) (test kwwh=369) -1.5 mmol/L -2.0-3.0 PATIENT TEMPERATURE (BEAKER) (test diwy=5097) 32.7 C FIO2 (BEAKER) (test udcn=8313) 70.0 % GLUCOSE-STAT [id number] 13:11:00 Test Item Value Reference Range Comments GLUCOSE RANDOM (BEAKER) (test byuv=978) 218 mg/dL 70-110 HGB/HCT (H&H) - STAT [id number] 13:11:00 Test Item Value Reference Range Comments HEMOGLOBIN (BEAKER) (test ynss=167) 9.9 g/dL 13.0-16.8 HEMATOCRIT (BEAKER) (test alrp=055) 29.0 % 40.0-50.0 SODIUM NA-STAT [id number] 13:09:00 Test Item Value Reference Range Comments SODIUM (BEAKER) (test pduo=512) 135 meq/L 135-148 POTASSIUM-STAT [id number] 13:09:00 Test Item Value Reference Range Comments POTASSIUM (BEAKER) (test bdau=295) 5.3 meq/L 3.6-5.5 BLOOD GAS, [id number] 12:50:00 Test Item Value Reference Range Comments PH ARTERIAL (BEAKER) (test arog=882) 7.44 7.35-7.45 PCO2 ARTERIAL (BEAKER) (test psaz=355) 36 mmHg 35-45 PO2 ARTERIAL (BEAKER) (test zxam=563) 278 mmHg 80-90 O2 SATURATION ARTERIAL (BEAKER) (test ibew=027) 99.7 % 96.0-97.0 HCO3 ARTERIAL (BEAKER) (test wflx=364) 25 mmol/L 21-29 BASE EXCESS ARTERIAL (BEAKER) (test qeis=906) -0.7 mmol/L -2.0-3.0 PATIENT TEMPERATURE (BEAKER) (test kqdu=0800) 30.2 C FIO2 (BEAKER) (test qvxe=8474) 65.0 % GLUCOSE-STAT [id number] 12:50:00 Test Item Value Reference Range Comments GLUCOSE RANDOM (BEAKER) (test fzlo=351) 208 mg/dL 70-110 HGB/HCT (H&H) - STAT [id number] 12:50:00 Test Item Value Reference Range Comments HEMOGLOBIN (BEAKER) (test iaov=518) 9.7 g/dL 13.0-16.8 HEMATOCRIT (BEAKER) (test kmgb=628) 29.0 % 40.0-50.0 SODIUM NA-STAT [id number] 12:49:00 Test Item Value Reference Range Comments SODIUM (BEAKER) (test yynq=638) 135 meq/L 135-148 POTASSIUM-STAT [id number] 12:49:00 Test Item Value Reference Range Comments POTASSIUM (BEAKER) (test kico=612) 5.1 meq/L 3.6-5.5 BLOOD GAS, [id number] 12:23:00 Test Item Value Reference Range Comments PH ARTERIAL (BEAKER) (test zuhh=933) 7.47 7.35-7.45 PCO2 ARTERIAL (BEAKER) (test emxe=457) 33 mmHg 35-45 PO2 ARTERIAL (BEAKER) (test zfay=655) 390 mmHg 80-90 O2 SATURATION ARTERIAL (BEAKER) (test bmxr=651) 99.8 % 96.0-97.0 HCO3 ARTERIAL (BEAKER) (test sbof=606) 26 mmol/L 21-29 BASE EXCESS ARTERIAL (BEAKER) (test nbsb=653) 0.3 mmol/L -2.0-3.0 PATIENT TEMPERATURE (BEAKER) (test ohba=2373) 30.3 C FIO2 (BEAKER) (test ukvz=5588) 80.0 % GLUCOSE-STAT [id number] 12:23:00 Test Item Value Reference Range Comments GLUCOSE RANDOM (BEAKER) (test dtpr=439) 183 mg/dL 70-110 HGB/HCT (H&H) - STAT [id number] 12:23:00 Test Item Value Reference Range Comments HEMOGLOBIN (BEAKER) (test ohph=527) 9.7 g/dL 13.0-16.8 HEMATOCRIT (BEAKER) (test eunu=449) 29.0 % 40.0-50.0 SODIUM NA-STAT [id number] 12:22:00 Test Item Value Reference Range Comments SODIUM (BEAKER) (test iuwq=684) 135 meq/L 135-148 POTASSIUM-STAT [id number] 12:22:00 Test Item Value Reference Range Comments POTASSIUM (BEAKER) (test mpnu=170) 4.7 meq/L 3.6-5.5 SODIUM NA-STAT [id number] 11:58:00 Test Item Value Reference Range Comments SODIUM (BEAKER) (test lviq=575) 136 meq/L 135-148 POTASSIUM-STAT [id number] 11:58:00 Test Item Value Reference Range Comments POTASSIUM (BEAKER) (test pivi=272) 4.1 meq/L 3.6-5.5 BLOOD GAS, [id number] 11:58:00 Test Item Value Reference Range Comments PH ARTERIAL (BEAKER) (test rcsq=606) 7.45 7.35-7.45 PCO2 ARTERIAL (BEAKER) (test jkwo=076) 37 mmHg 35-45 PO2 ARTERIAL (BEAKER) (test hlth=515) 523 mmHg 80-90 O2 SATURATION ARTERIAL (BEAKER) (test tcgw=035) 99.9 % 96.0-97.0 HCO3 ARTERIAL (BEAKER) (test jemu=798) 26 mmol/L 21-29 BASE EXCESS ARTERIAL (BEAKER) (test dyyx=345) 0.9 mmol/L -2.0-3.0 PATIENT TEMPERATURE (BEAKER) (test bbvu=3642) 33.6 C FIO2 (BEAKER) (test brzb=4263) 100.0 % GLUCOSE-STAT [id number] 11:58:00 Test Item Value Reference Range Comments GLUCOSE RANDOM (BEAKER) (test qhec=503) 143 mg/dL 70-110 HGB/HCT (H&H) - STAT [id number] 11:58:00 Test Item Value Reference Range Comments HEMOGLOBIN (BEAKER) (test bjkl=944) 10.9 g/dL 13.0-16.8 HEMATOCRIT (BEAKER) (test egof=138) 32.0 % 40.0-50.0 BLOOD GAS, [id number] 11:57:00 Test Item Value Reference Range Comments PH VENOUS (BEAKER) (test sobd=376) 7.42 7.32-7.42 PCO2 VENOUS (BEAKER) (test ykfj=474) 39 mmHg 41-51 PO2 VENOUS (BEAKER) (test tjdb=988) 63 mmHg 25-40 O2 SATURATION VENOUS (BEAKER) (test tkyn=317) 95.3 % 40.0-70.0 HCO3 VENOUS (BEAKER) (test jeel=308) 26 mmol/L 21-29 BASE EXCESS VENOUS (BEAKER) (test dqsd=563) 0.0 mmol/L -2.0-3.0 PATIENT TEMPERATURE (BEAKER) (test wctl=3455) 33.6 C FIO2 (BEAKER) (test xctc=7653) 100.0 % HEMOGLOBIN [id number] 10:26:00 Test Item Value Reference Range Comments HEMOGLOBIN A1C (BEAKER) (test uvcm=120) 5.2 % 4.3-6.1 PLATELET AGGREGATION: FUNCTION [id number] 09:03:00 Test Item Value Reference Range Comments WEAK ADP RESULT(BEAKER) (test 55 % 60-91 bvhc=4135) PLATELET FUNCTION SCREEN 50-59% indicates mild platelet INTERP (BEAKER) (test dysfunction uccv=6820) [id number] Sam Ramírez MD (electronic (BEAKER) (test jrpt=5465) signature) PLATELET COUNT AGG (BEAKER) 169 K/CU MM 150-450 (test woxy=7364) Platelet Function Screen results may be falsely low with platelet counts<100, 000/cu mm.BLOOD GAS, [id number] 08:53:00 Test Item Value Reference Range Comments PH ARTERIAL (BEAKER) (test rurl=679) 7.49 7.35-7.45 PCO2 ARTERIAL (BEAKER) (test amlu=596) 31 mmHg 35-45 PO2 ARTERIAL (BEAKER) (test hcpb=312) 356 mmHg 80-90 O2 SATURATION ARTERIAL (BEAKER) (test hpsd=446) 99.8 % 96.0-97.0 HCO3 ARTERIAL (BEAKER) (test mmcq=983) 23 mmol/L 21-29 BASE EXCESS ARTERIAL (BEAKER) (test xrde=071) 0.2 mmol/L -2.0-3.0 PATIENT TEMPERATURE (BEAKER) (test rhje=8941) 36.2 C FIO2 (BEAKER) (test mhrq=2075) 100.0 % HGB/HCT (H&H) - STAT [id number] 08:53:00 Test Item Value Reference Range Comments HEMOGLOBIN (BEAKER) (test fzsz=234) 12.7 g/dL 13.0-16.8 HEMATOCRIT (BEAKER) (test xpzt=818) 37.0 % 40.0-50.0 CALCIUM, [id number] 08:53:00 Test Item Value Reference Range Comments CALCIUM IONIZED (BEAKER) (test xjil=994) 1.05 mmol/L 1.12-1.27 PH, BLOOD (BEAKER) (test gfuq=3660) 7.48 GLUCOSE-STAT [id number] 08:51:00 Test Item Value Reference Range Comments GLUCOSE RANDOM (BEAKER) (test csgp=546) 102 mg/dL 70-110 SODIUM NA-STAT [id number] 08:51:00 Test Item Value Reference Range Comments SODIUM (BEAKER) (test vlwp=560) 138 meq/L 135-148 POTASSIUM-STAT [id number] 08:51:00 Test Item Value Reference Range Comments POTASSIUM (BEAKER) (test aqzy=811) 4.1 meq/L 3.6-5.5 URINALYSIS W/ [id number] 05:26:00 Test Item Value Reference Range Comments COLOR (BEAKER) (test pvxh=176) Yellow CLARITY (BEAKER) (test qdjk=566) Clear SPECIFIC GRAVITY UA (BEAKER) (test rymf=531) 1.008 1.001-1.035 PH UA (BEAKER) (test aojg=779) 7.5 5.0-8.0 PROTEIN UA (BEAKER) (test nhgx=604) 10 mg/dL Negative GLUCOSE UA (BEAKER) (test mdxv=189) Negative Negative KETONES UA (BEAKER) (test jdxd=920) Negative Negative BILIRUBIN UA (BEAKER) (test hktf=946) Negative Negative BLOOD UA (BEAKER) (test xeho=147) Negative Negative NITRITE UA (BEAKER) (test ujzd=431) Negative Negative LEUKOCYTE ESTERASE UA (BEAKER) (test yljp=324) Negative Negative UROBILINOGEN UA (BEAKER) (test ndhd=549) 2.0 mg/dL 0.2-1.0 RBC UA (BEAKER) (test fzcd=659) < /HPF WBC UA (BEAKER) (test vtsf=306) 0 /HPF MUCUS (BEAKER) (test fgbh=5259) Rare AMORPHOUS CRYSTALS (BEAKER) (test itvz=9184) Rare SOURCE(BEAKER) (test jptq=2640) Urine, Voided VITAMIN D, [id number] 05:01:00 Test Item Value Reference Range Comments VITAMIN D 25-OH (BEAKER) (test vytj=2940) 24.8 ng/mL 6.6-49.9 Effective 06/19/2017: Reference Range ChangeNew: 6.6-49.9 ng/mL Previous: 13.0 -47.8 ng/mLRecommended Vitamin D Target Range: 30.0-40.0 ng/mLCREATININE, RANDOM [id number] 04:55:00 Test Item Value Reference Range Comments CREATININE URINE (BEAKER) (test lqqo=889) 68.3 mg/dL Reference Range: No NormalsPROTEIN, RANDOM [id number] 04:55:00 Test Item Value Reference Range Comments PROTEIN, URINE (BEAKER) (test ygkg=7446) 19 mg/dL 0-14 PTH, [id number] 04:44:00 Test Item Value Reference Range Comments PARATHYROID HORMONE INTACT (BEAKER) (test 69.0 pg/mL 8.5-72.5 grly=641) BASIC METABOLIC [id number] 04:41:00 Test Item Value Reference Range Comments SODIUM (BEAKER) (test 140 meq/L 136-145 wdyw=851) POTASSIUM (BEAKER) (test 4.0 meq/L 3.5-5.1 mslz=504) CHLORIDE (BEAKER) (test 108 meq/L 98-107 hmyp=994) CO2 (BEAKER) (test 23 meq/L 22-29 thcb=799) BLOOD UREA NITROGEN 19 mg/dL 7-21 (BEAKER) (test ppcf=685) CREATININE (BEAKER) (test 1.65 mg/dL 0.57-1.25 rtac=376) GLUCOSE RANDOM (BEAKER) 105 mg/dL 70-105 (test lxwy=822) CALCIUM (BEAKER) (test 9.3 mg/dL 8.4-10.2 gccw=553) EGFR (BEAKER) (test 42 mL/min/1.73 sq m ESTIMATED GFR IS NOT mkmm=4716) ACCURATE CREATININE CLEARANCE IN PREDICTING GLOMERULAR FILTRATION RATE. ESTIMATED GFR IS NOT APPLICABLE FOR DIALYSIS PATIENTS. CBC (HEMOGRAM ONLY)2018-12-05 04:24:00 Test Item Value Reference Range Comments WHITE BLOOD CELL COUNT (BEAKER) (test zkqc=604) 7.4 K/ L 3.5-10.5 RED BLOOD CELL COUNT (BEAKER) (test srpa=174) 3.87 M/ L 4.63-6.08 HEMOGLOBIN (BEAKER) (test eodn=601) 12.4 GM/DL 13.7-17.5 HEMATOCRIT (BEAKER) (test apaj=399) 37.0 % 40.1-51.0 MEAN CORPUSCULAR VOLUME (BEAKER) (test ehvi=790) 95.6 fL 79.0-92.2 MEAN CORPUSCULAR HEMOGLOBIN (BEAKER) (test 32.0 pg 25.7-32.2 gevc=197) MEAN CORPUSCULAR HEMOGLOBIN CONC (BEAKER) (test 33.5 GM/DL 32.3-36.5 ypkx=294) RED CELL DISTRIBUTION WIDTH (BEAKER) (test 13.2 % 11.6-14.4 imcd=916) PLATELET COUNT (BEAKER) (test mfbw=016) 174 K/CU MM 150-450 MEAN PLATELET VOLUME (BEAKER) (test saus=977) 11.8 fL 9.4-12.4 NUCLEATED RED BLOOD CELLS (BEAKER) (test 0 /100 WBC 0-0 bgxt=645) RAD, CHEST, 1 VIEW, NON [id number] 20:09:00Reason for exam:->Pre Op (ACB ) ScreeninigShould [...] MDReport Verified Date/Time: 12/04/2018 20:09:09 Reading Location: [facility] C0[facility] Neuro Reading Room [id number] 04:47:00 Test Item Value Reference Range Comments PARTIAL THROMBOPLASTIN TIME (BEAKER) (test 83.1 seconds 22.5-36.0 cizk=712) [id number] 04:44:00 Test Item Value Reference Range Comments MAGNESIUM (BEAKER) (test 2.3 mg/dL 1.6-2.6 Specimen slightly hemolyzed sfbl=764) BASIC METABOLIC [id number] 04:44:00 Test Item Value Reference Range Comments SODIUM (BEAKER) (test 141 meq/L 136-145 sbdr=533) POTASSIUM (BEAKER) (test 4.0 meq/L 3.5-5.1 Specimen slightly pndt=431) hemolyzed CHLORIDE (BEAKER) (test 109 meq/L 98-107 ghvj=975) CO2 (BEAKER) (test 22 meq/L 22-29 pvvr=772) BLOOD UREA NITROGEN 24 mg/dL 7-21 (BEAKER) (test gpnh=036) CREATININE (BEAKER) (test 1.61 mg/dL 0.57-1.25 Specimen slightly yzpv=055) hemolyzed GLUCOSE RANDOM (BEAKER) 98 mg/dL 70-105 (test xmiw=095) CALCIUM (BEAKER) (test 9.3 mg/dL 8.4-10.2 wgpr=691) EGFR (BEAKER) (test 43 mL/min/1.73 sq m ESTIMATED GFR IS NOT amij=5482) ACCURATE CREATININE CLEARANCE IN PREDICTING GLOMERULAR FILTRATION RATE. ESTIMATED GFR IS NOT APPLICABLE FOR DIALYSIS PATIENTS. CBC (HEMOGRAM ONLY)2018-12-04 04:28:00 Test Item Value Reference Range Comments WHITE BLOOD CELL COUNT (BEAKER) (test vcvj=515) 7.6 K/ L 3.5-10.5 RED BLOOD CELL COUNT (BEAKER) (test bawa=476) 3.88 M/ L 4.63-6.08 HEMOGLOBIN (BEAKER) (test xufq=886) 12.3 GM/DL 13.7-17.5 HEMATOCRIT (BEAKER) (test dkyj=578) 37.6 % 40.1-51.0 MEAN CORPUSCULAR VOLUME (BEAKER) (test rrip=024) 96.9 fL 79.0-92.2 MEAN CORPUSCULAR HEMOGLOBIN (BEAKER) (test 31.7 pg 25.7-32.2 qjcr=364) MEAN CORPUSCULAR HEMOGLOBIN CONC (BEAKER) (test 32.7 GM/DL 32.3-36.5 zpma=115) RED CELL DISTRIBUTION WIDTH (BEAKER) (test 13.3 % 11.6-14.4 vxdg=646) PLATELET COUNT (BEAKER) (test gifp=083) 158 K/CU MM 150-450 MEAN PLATELET VOLUME (BEAKER) (test ruln=744) 11.6 fL 9.4-12.4 NUCLEATED RED BLOOD CELLS (BEAKER) (test 0 /100 WBC 0-0 ksxo=171) PLATELET AGGREGATION: DRUG [id number] 19:31:00 Test Item Value Reference Range Comments STRONG ADP RESULT(BEAKER) (test 67 % 70-94 dgos=4129) WEAK ADP RESULT(BEAKER) (test 65 % 60-91 mouv=5541) ARACHADONIC ACID RESULT(BEAKER) 5 % 63-89 (test bqlr=4685) PLATELET AGG DRUG INTERPRETATION Normal response to ADP (BEAKER) (test qrug=8617) suggests a lack of R2Y08-ckhmuegfo effect. PLATELET AGG DRUG INTERPRETATION Decreased response to (BEAKER) (test nnpz=406019) arachidonic acid suggests aspirin-like effect. [id number]-[id number] (BEAKER) Sandi Ovalle MD (test tllu=1659) (electronic signature) PLATELET COUNT AGG (BEAKER) 163 K/CU MM 150-450 (test mvdz=0588) Platelet aggregation results may be falsely low with platelet counts<100,000/ CU [id number] 12:53:00 Test Item Value Reference Range Comments PARTIAL THROMBOPLASTIN TIME (BEAKER) (test 69.0 seconds 22.5-36.0 najq=354) BASIC METABOLIC [id number] 07:03:00 Test Item Value Reference Range Comments SODIUM (BEAKER) (test 140 meq/L 136-145 gexx=098) POTASSIUM (BEAKER) (test 3.6 meq/L 3.5-5.1 Specimen slightly xbqo=480) hemolyzed CHLORIDE (BEAKER) (test 110 meq/L 98-107 hzda=865) CO2 (BEAKER) (test 21 meq/L 22-29 gzla=100) BLOOD UREA NITROGEN 31 mg/dL 7-21 (BEAKER) (test cjhz=075) CREATININE (BEAKER) (test 1.54 mg/dL 0.57-1.25 Specimen slightly hwvw=217) hemolyzed GLUCOSE RANDOM (BEAKER) 90 mg/dL 70-105 (test chpx=515) CALCIUM (BEAKER) (test 8.2 mg/dL 8.4-10.2 tqxh=750) EGFR (BEAKER) (test 45 mL/min/1.73 sq m ESTIMATED GFR IS NOT ujio=7952) ACCURATE CREATININE CLEARANCE IN PREDICTING GLOMERULAR FILTRATION RATE. ESTIMATED GFR IS NOT APPLICABLE FOR DIALYSIS PATIENTS. [id number] 06:52:00 Test Item Value Reference Range Comments PARTIAL THROMBOPLASTIN TIME (BEAKER) (test 65.5 seconds 22.5-36.0 hjci=285) CBC (HEMOGRAM ONLY)2018-12-03 06:39:00 Test Item Value Reference Range Comments WHITE BLOOD CELL COUNT (BEAKER) (test anrh=066) 8.5 K/ L 3.5-10.5 RED BLOOD CELL COUNT (BEAKER) (test zgch=260) 3.87 M/ L 4.63-6.08 HEMOGLOBIN (BEAKER) (test afst=225) 12.1 GM/DL 13.7-17.5 HEMATOCRIT (BEAKER) (test sslb=041) 37.6 % 40.1-51.0 MEAN CORPUSCULAR VOLUME (BEAKER) (test xmhr=496) 97.2 fL 79.0-92.2 MEAN CORPUSCULAR HEMOGLOBIN (BEAKER) (test 31.3 pg 25.7-32.2 vtuj=486) MEAN CORPUSCULAR HEMOGLOBIN CONC (BEAKER) (test 32.2 GM/DL 32.3-36.5 drqn=042) RED CELL DISTRIBUTION WIDTH (BEAKER) (test 13.4 % 11.6-14.4 oabp=459) PLATELET COUNT (BEAKER) (test mqxy=961) 176 K/CU MM 150-450 MEAN PLATELET VOLUME (BEAKER) (test fbdn=518) 12.2 fL 9.4-12.4 NUCLEATED RED BLOOD CELLS (BEAKER) (test 0 /100 WBC 0-0 zlua=050) [id number] 00:34:00 Test Item Value Reference Range Comments PARTIAL THROMBOPLASTIN TIME (BEAKER) (test 56.8 seconds 22.5-36.0 eair=195) [id number] 16:56:00 Test Item Value Reference Range Comments PARTIAL THROMBOPLASTIN TIME (BEAKER) (test 54.7 seconds 22.5-36.0 eyrx=040) B-TYPE NATRIURETIC FACTOR (BNP)2018-12-02 09:39:00 Test Item Value Reference Range Comments B-TYPE NATRIURETIC PEPTIDE (BEAKER) (test 1056 pg/mL 0-100 qfoe=676) [id number] 09:17:00 Test Item Value Reference Range Comments PARTIAL THROMBOPLASTIN TIME (BEAKER) (test 39.8 seconds 22.5-36.0 xchs=648) TROPONIN [id number] 04:45:00 Test Item Value Reference Range Comments TROPONIN I (BEAKER) (test jyci=593) 11.57 ng/mL 0.00-0.03 Troponin I (TnI) levels [...] acute neurological disease, and persistent tachyarrhythmia.BASIC METABOLIC [id number] 04:29:00 Test Item Value Reference Range Comments SODIUM (BEAKER) (test 138 meq/L 136-145 gfkm=009) POTASSIUM (BEAKER) (test 3.9 meq/L 3.5-5.1 Specimen slightly lswt=335) hemolyzed CHLORIDE (BEAKER) (test 108 meq/L 98-107 cbbe=651) CO2 (BEAKER) (test 18 meq/L 22-29 epeb=310) BLOOD UREA NITROGEN 39 mg/dL 7-21 (BEAKER) (test vkrq=343) CREATININE (BEAKER) (test 1.90 mg/dL 0.57-1.25 Specimen slightly cyyf=942) hemolyzed GLUCOSE RANDOM (BEAKER) 85 mg/dL 70-105 (test tegf=134) CALCIUM (BEAKER) (test 9.0 mg/dL 8.4-10.2 mzjy=877) EGFR (BEAKER) (test 36 mL/min/1.73 sq m ESTIMATED GFR IS NOT hteg=1307) ACCURATE CREATININE CLEARANCE IN PREDICTING GLOMERULAR FILTRATION RATE. ESTIMATED GFR IS NOT APPLICABLE FOR DIALYSIS PATIENTS. LIPID [id number] 04:29:00 Test Item Value Reference Range Comments TRIGLYCERIDES (BEAKER) (test 137 mg/dL Specimen slightly hemolyzed gbpr=306) CHOLESTEROL (BEAKER) (test 174 mg/dL Specimen slightly hemolyzed krni=027) HDL CHOLESTEROL (BEAKER) (test 34 mg/dL cxgr=931) LDL CHOLESTEROL CALCULATED 113 mg/dL (BEAKER) (test anxq=648) Triglyceride Reference Range: Low Risk <150 Borderline [...] Comments WHITE BLOOD CELL COUNT (BEAKER) (test jjni=229) 11.4 K/ L 3.5-10.5 RED BLOOD CELL COUNT (BEAKER) (test bilv=727) 4.04 M/ L 4.63-6.08 HEMOGLOBIN (BEAKER) (test ofnb=039) 12.6 GM/DL 13.7-17.5 HEMATOCRIT (BEAKER) (test heee=562) 38.7 % 40.1-51.0 MEAN CORPUSCULAR VOLUME (BEAKER) (test cflk=389) 95.8 fL 79.0-92.2 MEAN CORPUSCULAR HEMOGLOBIN (BEAKER) (test 31.2 pg 25.7-32.2 etuf=880) MEAN CORPUSCULAR HEMOGLOBIN CONC (BEAKER) (test 32.6 GM/DL 32.3-36.5 gocq=218) RED CELL DISTRIBUTION WIDTH (BEAKER) (test 13.6 % 11.6-14.4 polk=645) PLATELET COUNT (BEAKER) (test dzyp=671) 178 K/CU MM 150-450 MEAN PLATELET VOLUME (BEAKER) (test njwr=022) 11.8 fL 9.4-12.4 NUCLEATED RED BLOOD CELLS (BEAKER) (test 0 /100 WBC 0-0 beth=951) [id number] 18:55:00 Test Item Value Reference Range Comments ACTIVATED CLOTTING TIME (BEAKER) 98 sec TESTED AT [facility] [address] [facility] (test kcle=071) [facility] [address] COMPREHENSIVE METABOLIC [id number] 18:40:00 Test Item Value Reference Range Comments TOTAL PROTEIN (BEAKER) 6.7 gm/dL 6.0-8.3 (test qvjn=248) ALBUMIN (BEAKER) (test 3.4 g/dL 3.5-5.0 vkfi=9084) ALKALINE PHOSPHATASE 59 U/L 40-150 (BEAKER) (test dkik=808) BILIRUBIN TOTAL (BEAKER) 1.1 mg/dL 0.2-1.2 (test geqj=181) SODIUM (BEAKER) (test 141 meq/L 136-145 scyh=975) POTASSIUM (BEAKER) (test 3.6 meq/L 3.5-5.1 hvtu=094) CHLORIDE (BEAKER) (test 105 meq/L 98-107 rcwl=681) CO2 (BEAKER) (test 26 meq/L 22-29 zncx=736) BLOOD UREA NITROGEN 40 mg/dL 7-21 (BEAKER) (test orjs=630) CREATININE (BEAKER) (test 2.18 mg/dL 0.57-1.25 zpex=392) GLUCOSE RANDOM (BEAKER) 92 mg/dL 70-105 (test atrd=429) CALCIUM (BEAKER) (test 9.3 mg/dL 8.4-10.2 vsdd=534) AST (SGOT) (BEAKER) (test 16 U/L 5-34 idwx=088) ALT (SGPT) (BEAKER) (test 11 U/L 6-55 ysjc=410) EGFR (BEAKER) (test 30 mL/min/1.73 sq m ESTIMATED GFR IS NOT tajj=5328) ACCURATE CREATININE CLEARANCE IN PREDICTING GLOMERULAR FILTRATION RATE. ESTIMATED GFR IS NOT APPLICABLE FOR DIALYSIS PATIENTS. [id number] 18:31:00 Test Item Value Reference Range Comments PROTIME (BEAKER) (test uuda=352) 14.6 seconds 11.7-14.7 INR (BEAKER) (test udzm=921) 1.1 <=5.9 PARTIAL THROMBOPLASTIN TIME (BEAKER) (test 38.0 seconds 22.5-36.0 zfak=685) RECOMMENDED COUMADIN/WARFARIN INR THERAPY RANGESSTANDARD DOSE: 2.0 - 3.0 Includes: PROPHYLAXIS forvenous thrombosis, systemic embolization; TREATMENT for venous thrombosis and/or pulmonary embolus.HIGH RISK: Target INR is 2.5-3.5 for patients with mechanical heart valves.PROTHROMBIN [id number] 18:30: 00 Test Item Value Reference Range Comments PROTIME (BEAKER) (test bwjh=884) 14.6 seconds 11.7-14.7 INR (BEAKER) (test ohsv=359) 1.1 <=5.9 RECOMMENDED COUMADIN/WARFARIN INR THERAPY RANGESSTANDARD DOSE: 2.0 - 3.0 Includes: PROPHYLAXIS forvenous thrombosis, systemic embolization; TREATMENT for venous thrombosis and/or pulmonary embolus.HIGH RISK: Target INR is 2.5-3.5 for patients with mechanical heart valves.CBC W/PLT COUNT & AUTO [id number] 18:27:00 Test Item Value Reference Range Comments WHITE BLOOD CELL COUNT (BEAKER) (test yuhc=949) 13.1 K/ L 3.5-10.5 RED BLOOD CELL COUNT (BEAKER) (test sbyo=678) 3.93 M/ L 4.63-6.08 HEMOGLOBIN (BEAKER) (test nyss=830) 12.4 GM/DL 13.7-17.5 HEMATOCRIT (BEAKER) (test oucz=467) 37.3 % 40.1-51.0 MEAN CORPUSCULAR VOLUME (BEAKER) (test gyxg=168) 94.9 fL 79.0-92.2 MEAN CORPUSCULAR HEMOGLOBIN (BEAKER) (test 31.6 pg 25.7-32.2 pywt=782) MEAN CORPUSCULAR HEMOGLOBIN CONC (BEAKER) (test 33.2 GM/DL 32.3-36.5 vmke=804) RED CELL DISTRIBUTION WIDTH (BEAKER) (test 13.6 % 11.6-14.4 hshr=383) PLATELET COUNT (BEAKER) (test oryz=672) 184 K/CU MM 150-450 MEAN PLATELET VOLUME (BEAKER) (test ctfu=728) 11.6 fL 9.4-12.4 NUCLEATED RED BLOOD CELLS (BEAKER) (test 0 /100 WBC 0-0 tsnx=976) NEUTROPHILS RELATIVE PERCENT (BEAKER) (test 71 % dcpx=872) LYMPHOCYTES RELATIVE PERCENT (BEAKER) (test 19 % gmna=218) MONOCYTES RELATIVE PERCENT (BEAKER) (test 9 % gwcf=993) EOSINOPHILS RELATIVE PERCENT (BEAKER) (test 0 % lrna=128) BASOPHILS RELATIVE PERCENT (BEAKER) (test 0 % qkrp=970) NEUTROPHILS ABSOLUTE COUNT (BEAKER) (test 9.31 K/ L 1.78-5.38 vugc=545) LYMPHOCYTES ABSOLUTE COUNT (BEAKER) (test 2.53 K/ L 1.32-3.57 ngaw=596) MONOCYTES ABSOLUTE COUNT (BEAKER) (test 1.12 K/ L 0.30-0.82 ljye=093) EOSINOPHILS ABSOLUTE COUNT (BEAKER) (test 0.04 K/ L 0.04-0.54 uqab=534) BASOPHILS ABSOLUTE COUNT (BEAKER) (test 0.04 K/ L 0.01-0.08 kkll=726) IMMATURE GRANULOCYTES-RELATIVE PERCENT (BEAKER) 1 % 0-1 (test mmef=6595) [id number] 18:07:00 Test Item Value Reference Range Comments ACTIVATED CLOTTING TIME 136 sec TESTED AT [facility] [address] (BEAKER) (test cgyr=855) [facility] [address]
[2019-11-22] MEDS ORDERED: NA CHLORIDE 0.9% 1,000 ML ONE (11:06)
[2019-11-22 11:21] LABS: Absolute Lymphocytes (CBC) 1.3 K/uL (0.7-4.9); Basophils % 0.8 % (0-1.3); Hematocrit 37.9 % (39.6-49.0); Lymphocytes % 19.2 % (15.3-44.8); MPV 9.9 fL (7.6-11.3)
[2019-11-22 11:23] LABS: Protime INR 1.12
[2019-11-22 11:40] LABS: ALT/SGPT 16 U/L (12-78); AST/SGOT 13 U/L (15-37); Albumin 3.3 g/dL (3.4-5.0); Alkaline Phosphatase 76 U/L (45-117); BUN Blood Urea Nitrogen 24 mg/dL (7-18); Bicarbonate 27 mmol/L (21-32); Bilirubin Direct 0.2 mg/dL (0-0.2); Bilirubin Total 0.6 mg/dL (0.2-1.0); Glucose Level 90 mg/dL (74-106); Magnesium 2.1 mg/dL (1.8-2.4); NT PRO-BNP 362 pg/mL (<125); Potassium 3.7 mmol/L (3.5-5.1); Protein, Total 6.8 g/dL (6.4-8.2); Sodium Level 143 mmol/L (136-145); Troponin (Emerg Dept Use Only) < 0.02 ng/mL (0.0-0.045)
--- NOTE | 2019-11-22 12:41 | RAD REPORT ---
EXAM DESCRIPTION: RAD - Chest Single View - 11/22/2019 11:49 am CLINICAL HISTORY: syncopesyncope, hypertension, prior CABG surgery COMPARISON: November 11 TECHNIQUE: AP portable chest image was obtained 11/22/2019 11:49 am . FINDINGS: Lungs are clear. Heart and vasculature are normal. No measurable pleural effusion and no p neumothorax. No acute bony abnormality seen. No acute aortic findings suspected. IMPRESSION: No acute cardiopulmonary process. No new or progressive finding from comparison.
--- NOTE | 2019-11-22 13:01 | ER ---
Nurse's Notes [facility] Name: Jason Johnson Age: 69 yrs Sex: Male : 1950 Arrival Date: 11/22/2019 Time: 10:39 Bed 8 Private MD: Diagnosis: Orthostatic hypotension;Constipation Presentation: 11/21 10:52 Chief complaint: EMS states: Syncopal episode while seated at [employer]. Bystanders eased hb him to the floor, no injuries. Pt does not recall event. On scene was diaphoretic, AOx4, SBP 130s supine, SBP 110 sitting, HR 80s, BGL 137, NSR w/first degree AV block on 12 lead. NS 100ml to 20g LAC. Coronavirus screen: The patient has NOT traveled to a country currently being monitored by the CDC within the last 14 days. The patient has NOT had contact with any known and/or suspected case of coronavirus. Proceed with normal triage procedures. Ebola Screen: No symptoms or risks identified at this time. Initial Sepsis Screen: Does the patient meet any 2 criteria? No. Patient's initial sepsis screen is negative. Does the patient have a suspected source of infection? No. Patient's initial sepsis screen is negative. Risk Assessment: Do you want to hurt yourself or someone else? Patient reports no desire to harm self or others. 10:52 Method Of Arrival: EMS: [facility] hb 10:52 Acuity: NINA 3 hb Historical: - Allergies: 10:56 No Known Drug Allergies; hb - Home Meds: 10:56 aspirin 81 mg Oral TbEC 1 tab once daily [Active]; multivitamin Oral tab daily hb [Active]; Probiotic Oral [Active]; - PMHx: 10:56 constipation; CVA; Hypertension; hb - PSHx: 10:56 CABG; hb - Immunization history:: Adult Immunizations up to date. - Social history:: Smoking status: Patient denies any tobacco usage or history of. Screenin:56 Abuse screen: Denies threats or abuse. Denies injuries from another. Nutritional hb screening: No deficits noted. Tuberculosis screening: No symptoms or risk factors identified. Fall Risk Total Aguirre Fall Scale indicates Low Risk Score (25-44 pts). Fall prevention measures have been instituted. Side Rails Up X 2 Frequent Obs/Assesments occuring As available Patient and Family Educated on Fall Prevention Program and strategies. Assessment: 10:57 General: Appears in no apparent distress. Behavior is calm, cooperative. Pain: Denies hb pain. Neuro: Level of Consciousness is awake, alert, obeys commands, Oriented to person, place, time, situation. Cardiovascular: Heart tones S1 S2 present Capillary refill < 3 seconds Patient's skin is warm and dry. Respiratory: Airway is patent Respiratory effort is even, unlabored, Respiratory pattern is regular, symmetrical, Breath sounds are clear bilaterally. GI: No signs and/or symptoms were reported involving the gastrointestinal system. : No signs and/or symptoms were reported regarding the genitourinary system. EENT: No signs and/or symptoms were reported regarding the EENT system. Derm: Skin is pink, warm \T\ dry. Musculoskeletal: No signs and/or symptoms reported regarding the musculoskeletal system. 11:43 Reassessment: Patient appears in no apparent distress at this time. Patient and/or hb family updated on plan of care and expected duration. Pain level reassessed. Patient is alert, oriented x 3, equal unlabored respirations, skin warm/dry/pink. 12:45 Reassessment: Patient appears in no apparent distress at this time. Patient and/or hb family updated on plan of care and expected duration. Pain level reassessed. Patient is alert, oriented x 3, equal unlabored respirations, skin warm/dry/pink. Vital Signs: 10:52 BP 128 / 81; Pulse 82; Resp 16; Temp 97.8; Pulse Ox 98% on R/A; Weight 99.79 kg; Height hb 6 ft. 3 in. (190.50 cm); Pain 0/10; 11:37 BP 135 / 93; Pulse 50; Resp 17; Pulse Ox 100% ; sv 13:10 BP 140 / 92 Supine; Pulse 58; lt1 13:11 BP 150 / 105 Sitting; Pulse 68; lt1 13:11 BP 142 / 98 Standing; Pulse 74; lt1 10:52 Body Mass Index 27.50 (99.79 kg, 190.50 cm) ED Course: 10:39 Patient arrived in ED. ss 10:40 Ehsan Boyce PA is PHCP. jr8 10:40 Felipe Gonzalez MD is Attending Physician. jr8 10:52 Cole, Lana, RN is Primary Nurse. hb 10:55 Triage completed. hb 10:56 Arm band placed on. hb 10:56 Patient has correct armband on for positive identification. Placed in gown. Bed in low hb position. Call light in reach. Side rails up X2. 11:39 XRAY Chest (1 view) In Process Unspecified. EDMS 13:27 No provider procedures requiring assistance completed. IV discontinued, intact, hb bleeding controlled, No redness/swelling at site. Pressure dressing applied. Administered Medications: 11:11 Drug: NS 0.9% 1000 ml Route: IV; Rate: 1000 ml; Site: left antecubital; hb 12:15 Follow up: Response: No adverse reaction; IV Status: Completed infusion; IV Intake: hb 1000ml Intake: 12:15 IV: 1000ml; Total: 1000ml. hb Outcome: 13:00 Discharge ordered by MD. nair 13:27 Discharged to home ambulatory. hb 13:27 Condition: stable 13:27 Discharge instructions given to patient, Instructed on discharge instructions, follow up and referral plans. medication usage, Demonstrated understanding of instructions, follow-up care, medications, Prescriptions given X 1. 13:28 Patient left the ED. hb Signatures: Dispatcher [employer] EDMS Marisela Curry RN RN sv Smirch, Shelby, RN RN ss Roszak, Josh, PA PA jr8 Baxter, Heather, RN RN hb Tran, Leah lt1
--- NOTE | 2019-11-22 13:02 | EDPHYS ---
Physician Documentation [facility] Name: Jason Johnson Age: 69 yrs Sex: Male : 1950 Arrival Date: 11/22/2019 Time: 10:39 Bed 8 Private MD: ED Physician Felipe Gonzalez HPI: 11/21 11:47 This 69 yrs old Male presents to ER via EMS with complaints of Syncope. jr8 11:47 The patient has experienced syncope, became unresponsive, lost consciousness. Onset: jr8 The symptoms/episode began/occurred acutely, today. Duration: This was a single episode, that lasted 20 second(s). Context: the episode(s) was witnessed, by a friend, occurred gnosticism, occurred while the patient was standing. Associated injury: The patient did not suffer any apparent associated injury. Associated signs and symptoms: The patient has no apparent associated signs or symptoms. Current symptoms: Currently, the patient is not experiencing any symptoms, the patient feels back to baseline, no decreased level of consciousness, no confusion, no dysphasia, no headache, no paralysis, no visual changes. The patient has experienced a previous episode. The patient has not recently seen a physician. Patient stated that he was at gnosticism in a bible study group listening. Stated that he had not felt well this morning in general but had no specific symptoms. Stated that last thing he remembers at gnosticism was not feeling well again and then woke up on the ground. EMS stated that other gnosticism members saw what was happening and lowered him to ground before he fell. Patient now back to normal. No complaints at this time . Historical: - Allergies: 10:56 No Known Drug Allergies; hb - Home Meds: 10:56 aspirin 81 mg Oral TbEC 1 tab once daily [Active]; multivitamin Oral tab daily hb [Active]; Probiotic Oral [Active]; - PMHx: 10:56 constipation; CVA; Hypertension; hb - PSHx: 10:56 CABG; hb - Immunization history:: Adult Immunizations up to date. - Social history:: Smoking status: Patient denies any tobacco usage or history of. ROS: 11:47 Eyes: Negative for injury, pain, redness, and discharge, ENT: Negative for injury, jr8 pain, and discharge, Neck: Negative for injury, pain, and swelling, Cardiovascular: Negative for chest pain, palpitations, and edema, Respiratory: Negative for shortness of breath, cough, wheezing, and pleuritic chest pain, Abdomen/GI: Negative for abdominal pain, nausea, vomiting, diarrhea, and constipation, Back: Negative for injury and pain, MS/Extremity: Negative for injury and deformity, Skin: Negative for injury, rash, and discoloration. 11:47 Neuro: Positive for syncope. Exam: 11:47 Eyes: Pupils equal round and reactive to light, extra-ocular motions intact. Lids and jr8 lashes normal. Conjunctiva and sclera are non-icteric and not injected. Cornea within normal limits. Periorbital areas with no swelling, redness, or edema. ENT: Nares patent. No nasal discharge, no septal abnormalities noted. Tympanic membranes are normal and external auditory canals are clear. Oropharynx with no redness, swelling, or masses, exudates, or evidence of obstruction, uvula midline. Mucous membranes moist. Neck: Trachea midline, no thyromegaly or masses palpated, and no cervical lymphadenopathy. Supple, full range of motion without nuchal rigidity, or vertebral point tenderness. No Meningismus. Cardiovascular: Regular rate and rhythm with a normal S1 and S2. No gallops, murmurs, or rubs. Normal PMI, no JVD. No pulse deficits. Respiratory: Lungs have equal breath sounds bilaterally, clear to auscultation and percussion. No rales, rhonchi or wheezes noted. No increased work of breathing, no retractions or nasal flaring. Abdomen/GI: Soft, non-tender, with normal bowel sounds. No distension or tympany. No guarding or rebound. No evidence of tenderness throughout. Back: No spinal tenderness. No costovertebral tenderness. Full range of motion. Skin: Warm, dry with normal turgor. Normal color with no rashes, no lesions, and no evidence of cellulitis. MS/ Extremity: Pulses equal, no cyanosis. Neurovascular intact. Full, normal range of motion. Neuro: Awake and alert, GCS 15, oriented to person, place, time, and situation. Cranial nerves II-XII grossly intact. Motor strength 5/5 in all extremities. Sensory grossly intact. Cerebellar exam normal. Normal gait. 11:47 ECG was reviewed by the Attending Physician. Vital Signs: 10:52 BP 128 / 81; Pulse 82; Resp 16; Temp 97.8; Pulse Ox 98% on R/A; Weight 99.79 kg; Height hb 6 ft. 3 in. (190.50 cm); Pain 0/10; 11:37 BP 135 / 93; Pulse 50; Resp 17; Pulse Ox 100% ; sv 13:10 BP 140 / 92 Supine; Pulse 58; lt1 13:11 BP 150 / 105 Sitting; Pulse 68; lt1 13:11 BP 142 / 98 Standing; Pulse 74; lt1 10:52 Body Mass Index 27.50 (99.79 kg, 190.50 cm) hb MDM: 10:41 Patient medically screened. jr8 12:56 Data reviewed: vital signs, nurses notes, lab test result(s), EKG, radiologic studies, jr8 plain films. Data interpreted: Pulse oximetry: on room air is 100 %. Interpretation: normal. Counseling: I had a detailed discussion with the patient and/or guardian regarding: the historical points, exam findings, and any diagnostic results supporting the discharge/admit diagnosis, lab results, radiology results, the need for outpatient follow up, a family practitioner, to return to the emergency department if symptoms worsen or persist or if there are any questions or concerns that arise at home. Response to treatment: the patient's symptoms have markedly improved after treatment, patient is well hydrated. ED course: No longer orthostatic. Will d/c home to f/u with PCP. Subsequently patient had also discussed with me about some constipative issues he had been having. Will put on Miralax so he does not vagal down. . 11/21 10:41 Order name: Basic Metabolic Panel; Complete Time: 11:45 11/21 10:41 Order name: CBC with Diff; Complete Time: 11:11/21 10:41 Order name: LFT's; Complete Time: 11:45 11/21 10:41 Order name: Magnesium; Complete Time: 11:45 11/21 10:41 Order name: NT PRO-BNP; Complete Time: 11:45 11/21 10:41 Order name: PT-INR; Complete Time: 11:32 11/21 10:41 Order name: Troponin (emerg Dept Use Only); Complete Time: 11:45 11/21 10:41 Order name: XRAY Chest (1 view); Complete Time: 12:55 11/21 10:41 Order name: EKG; Complete Time: 10:42 11/21 10:41 Order name: Cardiac monitoring; Complete Time: 11:43 11/21 10:41 Order name: EKG - Nurse/Tech; Complete Time: 11:43 11/21 10:41 Order name: IV Saline Lock; Complete Time: 11:11 11/21 10:41 Order name: Labs collected and sent; Complete Time: 11:43 11/21 10:41 Order name: O2 Per Protocol; Complete Time: 10:59 11/21 10:41 Order name: O2 Sat Monitoring; Complete Time: 10:59 [facility] 11/21 12:02 Order name: Orthostatics; Complete Time: 13:14 EC:47 Rate is 50 beats/min. Rhythm is irregular, Sinus bradycardia with 1st degree heart jr8 block. QRS [place] is Normal. OR interval is prolonged at 220 msec. QRS interval is normal at 88 msec. QT interval is normal at 404 msec. Q waves are Present in lead V1. T waves are Inverted in leads II, III, aVF. T waves are Flattened in leads V1, V2, V3. No ST changes noted. Clinical impression: NSR w/ Non-specific ST/T Changes and 1st degree heart block. Interpreted by me. Reviewed by me. Administered Medications: 11:11 Drug: NS 0.9% 1000 ml Route: IV; Rate: 1000 ml; Site: left antecubital; hb 12:15 Follow up: Response: No adverse reaction; IV Status: Completed infusion; IV Intake: hb 1000ml Disposition: 11/22 09:28 Co-signature as Attending Physician, Felipe Gonzalez MD I agree with the assessment and denys plan of care. Disposition: 11/22/19 13:00 Discharged to Home. Impression: Orthostatic hypotension, Constipation. - Condition is Stable. - Discharge Instructions: Constipation, Adult, Orthostatic Hypotension. - Prescriptions for Miralax 17 gram/dose Oral - take 1 packet by ORAL route once daily dilute powder in 8 ounces of water or juice; 1 box. - Medication Reconciliation Form, Thank You Letter, Antibiotic Education, Prescription Opioid Use form. - Follow up: Private Physician; When: 5 - 6 days; Reason: Recheck today's complaints, Continuance of care, Re-evaluation by your physician. - Problem is new. - Symptoms have improved. - Notes: Increase fluids Metamucil daily Miralax as needed Signatures: Dispatcher [employer] EDFelipe Vallejo MD MD cha Roszak, Josh, PA PA jr8 Lana Cole, RN RN hb Corrections: (The following items were deleted from the chart) 11/21 13:28 13:00 11/22/2019 13:00 Discharged to Home. Impression: Orthostatic hypotension; hb Constipation. Condition is Stable. Forms are Medication Reconciliation Form, Thank You Letter, Antibiotic Education, Prescription Opioid Use. Follow up: Private Physician; When: 5 - 6 days; Reason: Recheck today's complaints, Continuance of care, Re-evaluation by your physician. Problem is new. Symptoms have improved. jr8
[2019-11-22 13:35] VITALS: TEMP 97.8
[2019-11-22 13:36] VITALS: O2SAT 100
[2019-11-22 13:39] VITALS: BP 142/98
--- NOTE | 2019-11-23 09:15 | EKG ---
Test Date: 2019-11-22 Test Time: 11:35:10 Export Specialist: MARLINE MEASUREMENT RESULTS: Intervals: Rate: 50 RI: 220 QRSD: 88 QT: 444 QTc: 404 [place]: P: 28 RI: 220 QRS: -15 T: -33 INTERPRETIVE STATEMENTS: Sinus bradycardia with 1st degree AV block Otherwise normal ECG Compared to ECG 11/12/2019 16:15:43 First degree AV block now present Electronically Signed On 11-23-19 09:15:08 CDT by Cornelio Morgan
== END 2019-11-22 13:28 | disposition home or self-care (01) ==
LOC: ER 10:38
DX: I95.1 Orthostatic hypotension (principal); K59.00 Constipation, unspecified; I10 Essential (primary) hypertension; Z79.82 Long term (current) use of aspirin
CPT/HCPCS: 93005; 85025; 80048; 36415; 83735; 85610; 80076; 84484; 83880; 71045; 96360; 99284; J7030

== ENCOUNTER 2020-05-01 16:25 | Emergency (ER) | payer OTHER ==
--- OUTSIDE RECORDS SUMMARY | 2020-05-01 16:27 | XMS REPORT | Clinical Summary ---
:1950 Author Organization [facility] Address [address] [place] [address] Care Team Providers Name Role Phone Jona Stephens MD Primary Care Provider [phone] Allergies No Known Allergies Medications Medication Sig Dispensed Refills Start Date End Date Status pantoprazole Take 1 tablet 30 tablet 0 12/13/2018 Ac tive (PROTONIX) 40 MG (40 mg total) tablet by mouth daily. aspirin 81 MG EC Take 1 tablet 30 tablet 1 12/13/2018 12/13/19 20 tablet (81 mg total) by mouth daily. atorvastatin (LIPITOR) Take 1 tablet 30 tablet 1 12/12/2018 40 MG tablet (40 mg total) by mouth nightly. metoprolol (TOPROL-XL) Take 1 tablet 30 tablet 1 12/13/2018 50 MG 24 hr tablet (50 mg total) by mouth daily. senna-docusate Take 1 tablet 30 tablet 0 12/12/2018 12/12/2019 (SENOKOT S) 8.6-50 mg by mouth per tablet nightly. amLODIPine (NORVASC) Take 1 tablet 30 tablet 1 12/13/201801/2020 10 MG tablet (10 mg total) by mouth daily. Active Problems Problem Noted Date Complete heart block 12/02/2018 NSTEMI (non-ST elevated myocardial infarction) 019 CKD (chronic kidney disease) stage 3, GFR 30-59 ml/min 09/09/2017 Overview: Baseline creatinine ~ 2-2.2 History of CVA (cerebrovascular accident) 09/09/2011 Social History Tobacco Use Types Packs/Day Years [...] six or more drinks on one occasion? No t asked Sex Assigned at Date Recorded Not on file Job Start Date Occupation Industry Not on file Not on file Not on file Travel History Travel Start Travel End No recent travel history available. Last Filed Vital Signs Not on file Plan of Treatment Not on file Implants Implanted Type Area Vocational Rehabilitation Technician Device Shelf Model / Identifier Expiration Serial / Date Lot Sternal Zipfix Ndl Strl .[id number] - [id number] Cardiovascula r N/A: SYNTHES:SYNTHES 06/08/[id number] / Implanted: Qty: 1 on 12/05/2018 by Joanna Carvajal MD Chest [facility] / [id number] Results Not on fileafter 05/01/2019 Insurance Payer Benefit Plan / Group Subscriber ID Type Phone A ddress MEDICARE MEDICARE A B xxxxxxxxxxx Medicare Advance Directives For more information, please contact:[address] [phone] Code Status Date Activated Date Inactivated Comments Full Code 12/05/2018 4:14 PM 12/12/2018 7:41 PM This code status was determined by: [...]
--- OUTSIDE RECORDS SUMMARY | 2020-05-01 16:29 | XMS REPORT | Continuity of Care Document ---
:1950 Author Organization [facility] t Address [address] [place] [address] Care Team Providers Name Role Phone Brian Stephens MD Primary Care Physician EDWINA FRANKLIN Attending Clinician Unavailable EDWINA FRANKLIN Admitting Clinician Unavailable Problems Condition Condition Condition Status Onset Resolution Last Treating Co mments Source Name Details Category Date Date Treatment Clinician Date Complete Complete Disease [facility] Center NSTEMI NSTEMI Disease Active [facility] - [facility] - elevated elevated 00:00: Medica l myocardial myocardial 00 Ce nter infarction infarction ) ) CKD CKD Disease Active Overview: [facility] (chronic 09-09 Baseline [facility] - kidney kidney 00:00: creatinin Medical disease) disease) 00 e ~ 2-2.[address] stage 3, stage 3, GFR 30-59 GFR 30-59 ml/min ml/min History of History of Disease Active [facility] CVA CVA 09-09 [facility] - (cerebrova (cerebrova 00:00: Me dical scular scular 00 Center accident) accident) Allergies, Adverse Reactions, Alerts This patient has no known allergies or adverse reactions. Social History Social Habit Start Date Stop Date Quantity Comments Source History of tobacco Chews Tobacco [facility] use [facility] History SDOH [facility] - Alcohol Std Drinks Medica l Center History SDOH [facility] - Alcohol Binge Medical [address] [facility] Sex Assigned At [facility] - [facility] History SDOH 2018-12-01 2018-12-[address] [facility] - Alcohol Frequency 00:00:00 00:00:00 Medical Center Smoking Status Start Date Stop Date Source Never smoker [facility] Medications Ordered Filled Start Stop Current Ordering Indication Dosage Frequency Signature Comments Components Source Medication Medication Date Date Medication? Clinician (SIG) Name Name pantoprazol Yes 40mg QD Take [address] [facility] e 4-06 tablet (40 [facility] - (PROTONIX) 00:00: mg total) Me dical 40 MG 00 by mouth Center tablet daily. aspirin 81 2019- No 81mg QD Take [address] [facility] [address] MG EC 12-13 tablet (81 [facility] - tablet 00:00: 23:59 mg total) Medic al 00 :00 by mouth Center daily. metoprolol 2019- No 50mg QD Take [address] [facility] [address] (TOPROL-XL) 12-13 tablet (50 L ukes - 50 MG 24 hr 00:00: 23:59 mg total) Medical tablet 00 :00 by mouth Center daily. amLODIPine 2019- No 10mg QD Take [address] [facility] (NORVASC) 12-13 tablet (10 Taryn es - 10 MG 00:00: 23:59 mg total) Medica l tablet 00 :00 by mouth Center daily. atorvastati 2019- No 40mg QD Take [address] [facility] [address] n (LIPITOR) 12-12 tablet (40 L ukes - 40 MG 00:00: 23:59 mg total) Medica l tablet 00 :00 by mouth Center nightly. senna-docus 2019- No 1{tbl} QD Take [address] ate 12-12 tablet by [facility] - (SENOKOT S) 00:00: 23:59 mouth Medi william 8.6-50 mg 00 :00 nightly. Center per tablet Procedures This patient has no known procedures. Results Test Description Test Time Test Comments Results Result Comments Source URINALYSIS W/ REFLEX URINE CULTURE 2018-12-12 13:31:00 Test Item Value Reference Range Interpretation Comme nts COLOR (BEAKER) (test code = 470) Yellow CLARITY (BEAKER) (test code = 469) Hazy SPECIFIC GRAVITY UA (BEAKER) (test code = 468) 1.008 1.001-1 .035 PH UA (BEAKER) (test code = 467) 7.5 5.0-8.0 PROTEIN UA (BEAKER) (test code = 464) 20 mg/dL Negative A GLUCOSE UA (BEAKER) (test code = 365) Negative Negative KETONES UA (BEAKER) (test code = 371) Negative Negative BILIRUBIN UA (BEAKER) (test code = 462) Negative Negative BLOOD UA (BEAKER) (test code = 461) Negative Negative NITRITE UA (BEAKER) (test code = 465) Negative Negative LEUKOCYTE ESTERASE UA (BEAKER) (test code = 466) Trace Negat fariba A UROBILINOGEN UA (BEAKER) (test code = 463) 4.0 mg/dL 0.2-1.0 H RBC UA (BEAKER) (test code = 519) < /HPF WBC UA (BEAKER) (test code = 520) 3 /HPF SQUAMOUS EPITHELIAL (BEAKER) (test code = 516) 1 /HPF SOURCE(BEAKER) (test code = 2795) [id number] 05:39:00 Test Item Value Reference Range Interpretation Comments PHOSPHORUS (BEAKER) (test code = 2.8 mg/dL 2.3-4.7 604) CBC W/PLT COUNT & AUTO [id number] 05:18:00 Test Item Value Reference Range Interpretation Comments WHITE BLOOD CELL COUNT (BEAKER) 13.3 K/ L 3.5-10.5 H (test code = 775) RED BLOOD CELL COUNT (BEAKER) 2.86 M/ L 4.63-6.08 L (test code = 761) HEMOGLOBIN (BEAKER) (test code = 9.1 GM/DL 13.7-17.5 L 410) HEMATOCRIT (BEAKER) (test code = 27.5 % 40.1-51.0 L 411) MEAN CORPUSCULAR VOLUME (BEAKER) 96.2 fL 79.0-92.2 H (test code = 753) MEAN CORPUSCULAR HEMOGLOBIN 31.8 pg 25.7-32.2 (BEAKER) (test code = 751) MEAN CORPUSCULAR HEMOGLOBIN CONC 33.1 GM/DL 32.3-36.5 (BEAKER) (test code = 752) RED CELL DISTRIBUTION WIDTH 15.1 % 11.6-14.4 H (BEAKER) (test code = 412) PLATELET COUNT (BEAKER) (test 225 K/CU MM 150-450 code = 756) MEAN PLATELET VOLUME (BEAKER) 11.5 fL 9.4-12.4 (test code = 754) NUCLEATED RED BLOOD CELLS 0 /100 WBC 0-0 (BEAKER) (test code = 413) NEUTROPHILS RELATIVE PERCENT 73 % (BEAKER) (test code = 429) LYMPHOCYTES RELATIVE PERCENT 16 % (BEAKER) (test code = 430) MONOCYTES RELATIVE PERCENT 6 % (BEAKER) (test code = 431) EOSINOPHILS RELATIVE PERCENT 3 % (BEAKER) (test code = 432) BASOPHILS RELATIVE PERCENT 1 % (BEAKER) (test code = 437) NEUTROPHILS ABSOLUTE COUNT 9.69 K/ L 1.78-5.38 H (BEAKER) (test code = 670) LYMPHOCYTES ABSOLUTE COUNT 2.16 K/ L 1.32-3.57 (BEAKER) (test code = 414) MONOCYTES ABSOLUTE COUNT (BEAKER) 0.84 K/ L 0.30-0.82 H (test code = 415) EOSINOPHILS ABSOLUTE COUNT 0.39 K/ L 0.04-0.54 (BEAKER) (test code = 416) BASOPHILS ABSOLUTE COUNT (BEAKER) 0.08 K/ L 0.01-0.08 (test code = 417) IMMATURE GRANULOCYTES-RELATIVE 1 % 0-1 PERCENT (BEAKER) (test code = 2801) U/S, RENAL, [id number] 02:06:00Reason for exam:->ckdShould this be performed at [...] is advised to exclude infection. Signed: Eladio Gómezeport Verified Date/Time: 12/12/2018 02:06:07 Reading Location: [facility] B1 C013Y CT Body Reading Room [id number] 05:23:00 Test Item Value Reference Range Interpretation Comments PHOSPHORUS (BEAKER) (test code = 2.7 mg/dL 2.3-4.7 604) [id number] 05:23:00 Test Item Value Reference Range Interpretation Comments MAGNESIUM (BEAKER) (test code = 2.1 mg/dL 1.6-2.6 627) BASIC METABOLIC [id number] 05:23:00 Test Item Value Reference Range Interpretation Comments SODIUM (BEAKER) 140 meq/L 136-145 (test code = 381) POTASSIUM (BEAKER) 3.4 meq/L 3.5-5.1 L (test code = 379) CHLORIDE (BEAKER) 111 meq/L 98-107 H (test code = 382) CO2 (BEAKER) (test 24 meq/L 22-29 code = 355) BLOOD UREA NITROGEN 20 mg/dL 7-21 (BEAKER) (test code = 354) CREATININE (BEAKER) 1.29 mg/dL 0.57-1.25 H (test code = 358) GLUCOSE RANDOM 110 mg/dL 70-105 H (BEAKER) (test code = 652) CALCIUM (BEAKER) 8.3 mg/dL 8.4-10.2 L (test code = 697) EGFR (BEAKER) (test 56 mL/min/1.73 ESTIMA KATIE GFR IS code = 1092) sq m NOT ACCURATE CREATININE CLEARANCE IN PREDICTING GLOMERULAR FILTRATION RATE . ESTIMATED GFR I S NOT APPLICABLE FOR DIALYSIS PATIEN TS. CBC W/PLT COUNT & AUTO [id number] 05:00:00 Test Item Value Reference Range Interpretation Comments WHITE BLOOD CELL COUNT (BEAKER) 11.2 K/ L 3.5-10.5 H (test code = 775) RED BLOOD CELL COUNT (BEAKER) 2.70 M/ L 4.63-6.08 L (test code = 761) HEMOGLOBIN (BEAKER) (test code = 8.6 GM/DL 13.7-17.5 L 410) HEMATOCRIT (BEAKER) (test code = 26.0 % 40.1-51.0 L 411) MEAN CORPUSCULAR VOLUME (BEAKER) 96.3 fL 79.0-92.2 H (test code = 753) MEAN CORPUSCULAR HEMOGLOBIN 31.9 pg 25.7-32.2 (BEAKER) (test code = 751) MEAN CORPUSCULAR HEMOGLOBIN CONC 33.1 GM/DL 32.3-36.5 (BEAKER) (test code = 752) RED CELL DISTRIBUTION WIDTH 14.8 % 11.6-14.4 H (BEAKER) (test code = 412) PLATELET COUNT (BEAKER) (test 180 K/CU MM 150-450 code = 756) MEAN PLATELET VOLUME (BEAKER) 12.3 fL 9.4-12.4 (test code = 754) NUCLEATED RED BLOOD CELLS 0 /100 WBC 0-0 (BEAKER) (test code = 413) NEUTROPHILS RELATIVE PERCENT 69 % (BEAKER) (test code = 429) LYMPHOCYTES RELATIVE PERCENT 15 % (BEAKER) (test code = 430) MONOCYTES RELATIVE PERCENT 9 % (BEAKER) (test code = 431) EOSINOPHILS RELATIVE PERCENT 5 % (BEAKER) (test code = 432) BASOPHILS RELATIVE PERCENT 0 % (BEAKER) (test code = 437) NEUTROPHILS ABSOLUTE COUNT 7.74 K/ L 1.78-5.38 H (BEAKER) (test code = 670) LYMPHOCYTES ABSOLUTE COUNT 1.71 K/ L 1.32-3.57 (BEAKER) (test code = 414) MONOCYTES ABSOLUTE COUNT (BEAKER) 1.01 K/ L 0.30-0.82 H (test code = 415) EOSINOPHILS ABSOLUTE COUNT 0.51 K/ L 0.04-0.54 (BEAKER) (test code = 416) BASOPHILS ABSOLUTE COUNT (BEAKER) 0.05 K/ L 0.01-0.08 (test code = 417) IMMATURE GRANULOCYTES-RELATIVE 2 % 0-1 H PERCENT (BEAKER) (test code = 2801) [id number] 05:42:00 Test Item Value Reference Range Interpretation Comments PHOSPHORUS (BEAKER) (test code = 2.9 mg/dL 2.3-4.7 604) [id number] 05:42:00 Test Item Value Reference Range Interpretation Comments MAGNESIUM (BEAKER) (test code = 2.0 mg/dL 1.6-2.6 627) BASIC METABOLIC [id number] 05:42:00 Test Item Value Reference Range Interpretation Comments SODIUM (BEAKER) 139 meq/L 136-145 (test code = 381) POTASSIUM (BEAKER) 3.8 meq/L 3.5-5.1 (test code = 379) CHLORIDE (BEAKER) 109 meq/L 98-107 H (test code = 382) CO2 (BEAKER) (test 24 meq/L 22-29 code = 355) BLOOD UREA NITROGEN 21 mg/dL 7-21 (BEAKER) (test code = 354) CREATININE (BEAKER) 1.35 mg/dL 0.57-1.25 H (test code = 358) GLUCOSE RANDOM 102 mg/dL 70-105 (BEAKER) (test code = 652) CALCIUM (BEAKER) 8.6 mg/dL 8.4-10.2 (test code = 697) EGFR (BEAKER) (test 53 mL/min/1.73 ESTIMA KATIE GFR IS code = 1092) sq m NOT ACCURATE CREATININE CLEARANCE IN PREDICTING GLOMERULAR FILTRATION RATE . ESTIMATED GFR I S NOT APPLICABLE FOR DIALYSIS PATIEN TS. CBC W/PLT COUNT & AUTO [id number] 05:18:00 Test Item Value Reference Range Interpretation Comments WHITE BLOOD CELL COUNT (BEAKER) 10.9 K/ L 3.5-10.5 H (test code = 775) RED BLOOD CELL COUNT (BEAKER) 2.80 M/ L 4.63-6.08 L (test code = 761) HEMOGLOBIN (BEAKER) (test code = 8.8 GM/DL 13.7-17.5 L 410) HEMATOCRIT (BEAKER) (test code = 27.1 % 40.1-51.0 L 411) MEAN CORPUSCULAR VOLUME (BEAKER) 96.8 fL 79.0-92.2 H (test code = 753) MEAN CORPUSCULAR HEMOGLOBIN 31.4 pg 25.7-32.2 (BEAKER) (test code = 751) MEAN CORPUSCULAR HEMOGLOBIN CONC 32.5 GM/DL 32.3-36.5 (BEAKER) (test code = 752) RED CELL DISTRIBUTION WIDTH 14.4 % 11.6-14.4 (BEAKER) (test code = 412) PLATELET COUNT (BEAKER) (test 171 K/CU MM 150-450 code = 756) MEAN PLATELET VOLUME (BEAKER) 11.7 fL 9.4-12.4 (test code = 754) NUCLEATED RED BLOOD CELLS 0 /100 WBC 0-0 (BEAKER) (test code = 413) NEUTROPHILS RELATIVE PERCENT 71 % (BEAKER) (test code = 429) LYMPHOCYTES RELATIVE PERCENT 16 % (BEAKER) (test code = 430) MONOCYTES RELATIVE PERCENT 8 % (BEAKER) (test code = 431) EOSINOPHILS RELATIVE PERCENT 4 % (BEAKER) (test code = 432) BASOPHILS RELATIVE PERCENT 0 % (BEAKER) (test code = 437) NEUTROPHILS ABSOLUTE COUNT 7.66 K/ L 1.78-5.38 H (BEAKER) (test code = 670) LYMPHOCYTES ABSOLUTE COUNT 1.78 K/ L 1.32-3.57 (BEAKER) (test code = 414) MONOCYTES ABSOLUTE COUNT (BEAKER) 0.83 K/ L 0.30-0.82 H (test code = 415) EOSINOPHILS ABSOLUTE COUNT 0.44 K/ L 0.04-0.54 (BEAKER) (test code = 416) BASOPHILS ABSOLUTE COUNT (BEAKER) 0.04 K/ L 0.01-0.08 (test code = 417) IMMATURE GRANULOCYTES-RELATIVE 1 % 0-1 PERCENT (BEAKER) (test code = 2801) RAD, CHEST, 1 VIEW, NON [id number] 10:12:00Reason for exam:->post operative cardiacShould this be performed at the bedside?->YesFINAL REPORT TECHNIQUE: Frontal chest radiograph dated 12/09/2018. CLINICAL HISTORY: Post op cardiac COMPARISON STUDY: Chest radiograph dated 12/08/2018 IMPRESSION:Linear atelectasis is seen in the left lung base. No pleural effusion or pneumothorax. Cardiomediastinal silhouette isstable in size. No pulmonary edema. Degenerative changes are seen in the spine. Midline sternotomy wires are intact and well aligned. Signed: Zachariah Camejo MDReport Verified Date/Time: 12/09/201810:12:03 Reading Location: [facility] Radiology Reading Room CBC W/PLT COUNT & AUTO [id number] 07:16:00 Test Item Value Reference Range Interpretation Comments WHITE BLOOD CELL COUNT (BEAKER) 9.7 K/ L 3.5-10.5 (test code = 775) RED BLOOD CELL COUNT (BEAKER) 2.47 M/ L 4.63-6.08 L (test code = 761) HEMOGLOBIN (BEAKER) (test code = 7.8 GM/DL 13.7-17.5 L 410) HEMATOCRIT (BEAKER) (test code = 23.9 % 40.1-51.0 L 411) MEAN CORPUSCULAR VOLUME (BEAKER) 96.8 fL 79.0-92.2 H (test code = 753) MEAN CORPUSCULAR HEMOGLOBIN 31.6 pg 25.7-32.2 (BEAKER) (test code = 751) MEAN CORPUSCULAR HEMOGLOBIN CONC 32.6 GM/DL 32.3-36.5 (BEAKER) (test code = 752) RED CELL DISTRIBUTION WIDTH 14.8 % 11.6-14.4 H (BEAKER) (test code = 412) PLATELET COUNT (BEAKER) (test 131 K/CU MM 150-450 L code = 756) MEAN PLATELET VOLUME (BEAKER) 12.0 fL 9.4-12.4 (test code = 754) NUCLEATED RED BLOOD CELLS 1 /100 WBC 0-0 H (BEAKER) (test code = 413) NEUTROPHILS RELATIVE PERCENT 72 % (BEAKER) (test code = 429) LYMPHOCYTES RELATIVE PERCENT 17 % (BEAKER) (test code = 430) MONOCYTES RELATIVE PERCENT 8 % (BEAKER) (test code = 431) EOSINOPHILS RELATIVE PERCENT 2 % (BEAKER) (test code = 432) BASOPHILS RELATIVE PERCENT 0 % (BEAKER) (test code = 437) NEUTROPHILS ABSOLUTE COUNT 6.97 K/ L 1.78-5.38 H (BEAKER) (test code = 670) LYMPHOCYTES ABSOLUTE COUNT 1.67 K/ L 1.32-3.57 (BEAKER) (test code = 414) MONOCYTES ABSOLUTE COUNT (BEAKER) 0.75 K/ L 0.30-0.82 (test code = 415) EOSINOPHILS ABSOLUTE COUNT 0.19 K/ L 0.04-0.54 (BEAKER) (test code = 416) BASOPHILS ABSOLUTE COUNT (BEAKER) 0.02 K/ L 0.01-0.08 (test code = 417) IMMATURE GRANULOCYTES-RELATIVE 1 % 0-1 PERCENT (BEAKER) (test code = 2801) [id number] 07:10:00 Test Item Value Reference Range Interpretation Comments PHOSPHORUS (BEAKER) (test code = 2.5 mg/dL 2.3-4.7 604) [id number] 07:10:00 Test Item Value Reference Range Interpretation Comments MAGNESIUM (BEAKER) (test code = 2.1 mg/dL 1.6-2.6 627) BASIC METABOLIC [id number] 07:10:00 Test Item Value Reference Range Interpretation Comments SODIUM (BEAKER) 140 meq/L 136-145 (test code = 381) POTASSIUM (BEAKER) 3.6 meq/L 3.5-5.1 (test code = 379) CHLORIDE (BEAKER) 110 meq/L 98-107 H (test code = 382) CO2 (BEAKER) (test 25 meq/L 22-29 code = 355) BLOOD UREA NITROGEN 30 mg/dL 7-21 H (BEAKER) (test code = 354) CREATININE (BEAKER) 1.47 mg/dL 0.57-1.25 H (test code = 358) GLUCOSE RANDOM 101 mg/dL 70-105 (BEAKER) (test code = 652) CALCIUM (BEAKER) 8.4 mg/dL 8.4-10.2 (test code = 697) EGFR (BEAKER) (test 48 mL/min/1.73 ESTIMA KATIE GFR IS code = 1092) sq m NOT ACCURATE CREATININE CLEARANCE IN PREDICTING GLOMERULAR FILTRATION RATE . ESTIMATED GFR I S NOT APPLICABLE FOR DIALYSIS PATIEN TS. HEMOGLOBIN AND [id number] 19:10:00 Test Item Value Reference Range Interpretation Comments HEMOGLOBIN (BEAKER) (test code = 8.1 GM/DL 13.7-17.5 L 410) HEMATOCRIT (BEAKER) (test code = 24.8 % 40.1-51.0 L 411) RAD, CHEST, 1 VIEW, NON [id number] 07:39:00Reason for exam:->post operative cardiacShould this be performed at the bedside?->YesFINAL REPORT Portable chest. CLINICAL HISTORY: post operative cardiac. COMPARISON STUDY: Chest x-ray from yesterday. FINDINGS: The cardiac silhouette is enlarged. Sternotomy wires are seen. The pulmonary parenchyma demonstrates mild reticular markings with atelectatic changes. The right jugular line has been removed. The chest tubes remain. No pneumothorax is seen. Degenerative changes are noted. IMPRESSION: Removal of right jugular line. No other significant change. Signed: Rudolph Cano MDRepssm rehab Verified Date/Time: 12/08/2018 07:39:23 Reading Location: [facility] Radiology Reading Room PHOSPHORUS 2018-12-08 05:54:00 Test Item Value Reference Range Interpretation Comments PHOSPHORUS (BEAKER) (test code = 2.7 mg/dL 2.3-4.7 604) BASIC METABOLIC [id number] 05:54:00 Test Item Value Reference Range Interpretation Comments SODIUM (BEAKER) 140 meq/L 136-145 (test code = 381) POTASSIUM (BEAKER) 4.0 meq/L 3.5-5.1 (test code = 379) CHLORIDE (BEAKER) 110 meq/L 98-107 H (test code = 382) CO2 (BEAKER) (test 24 meq/L 22-29 code = 355) BLOOD UREA NITROGEN 38 mg/dL 7-21 H (BEAKER) (test code = 354) CREATININE (BEAKER) 1.70 mg/dL 0.57-1.25 H (test code = 358) GLUCOSE RANDOM 116 mg/dL 70-105 H (BEAKER) (test code = 652) CALCIUM (BEAKER) 8.8 mg/dL 8.4-10.2 (test code = 697) EGFR (BEAKER) (test 40 mL/min/1.73 ESTIMA KATIE GFR IS code = 1092) sq m NOT ACCURATE CREATININE CLEARANCE IN PREDICTING GLOMERULAR FILTRATION RATE . ESTIMATED GFR I S NOT APPLICABLE FOR DIALYSIS PATIEN TS. CBC W/PLT COUNT & AUTO [id number] 04:57:00 Test Item Value Reference Range Interpretation Comments WHITE BLOOD CELL COUNT (BEAKER) 12.8 K/ L 3.5-10.5 H (test code = 775) RED BLOOD CELL COUNT (BEAKER) 2.20 M/ L 4.63-6.08 L (test code = 761) HEMOGLOBIN (BEAKER) (test code = 7.0 GM/DL 13.7-17.5 L 410) HEMATOCRIT (BEAKER) (test code = 21.4 % 40.1-51.0 L 411) MEAN CORPUSCULAR VOLUME (BEAKER) 97.3 fL 79.0-92.2 H (test code = 753) MEAN CORPUSCULAR HEMOGLOBIN 31.8 pg 25.7-32.2 (BEAKER) (test code = 751) MEAN CORPUSCULAR HEMOGLOBIN CONC 32.7 GM/DL 32.3-36.5 (BEAKER) (test code = 752) RED CELL DISTRIBUTION WIDTH 15.3 % 11.6-14.4 H (BEAKER) (test code = 412) PLATELET COUNT (BEAKER) (test 131 K/CU MM 150-450 L code = 756) MEAN PLATELET VOLUME (BEAKER) 12.0 fL 9.4-12.4 (test code = 754) NUCLEATED RED BLOOD CELLS 1 /100 WBC 0-0 H (BEAKER) (test code = 413) NEUTROPHILS RELATIVE PERCENT 79 % (BEAKER) (test code = 429) LYMPHOCYTES RELATIVE PERCENT 12 % (BEAKER) (test code = 430) MONOCYTES RELATIVE PERCENT 9 % (BEAKER) (test code = 431) EOSINOPHILS RELATIVE PERCENT 0 % (BEAKER) (test code = 432) BASOPHILS RELATIVE PERCENT 0 % (BEAKER) (test code = 437) NEUTROPHILS ABSOLUTE COUNT 10.09 K/ L 1.78-5.38 H (BEAKER) (test code = 670) LYMPHOCYTES ABSOLUTE COUNT 1.48 K/ L 1.32-3.57 (BEAKER) (test code = 414) MONOCYTES ABSOLUTE COUNT (BEAKER) 1.10 K/ L 0.30-0.82 H (test code = 415) EOSINOPHILS ABSOLUTE COUNT 0.01 K/ L 0.04-0.54 L (BEAKER) (test code = 416) BASOPHILS ABSOLUTE COUNT (BEAKER) 0.01 K/ L 0.01-0.08 (test code = 417) IMMATURE GRANULOCYTES-RELATIVE 1 % 0-1 PERCENT (BEAKER) (test code = 2801) BASIC METABOLIC [id number] 12:27:00 Test Item Value Reference Range Interpretation Comments SODIUM (BEAKER) 141 meq/L 136-145 (test code = 381) POTASSIUM (BEAKER) 4.2 meq/L 3.5-5.1 (test code = 379) CHLORIDE (BEAKER) 110 meq/L 98-107 H (test code = 382) CO2 (BEAKER) (test 25 meq/L 22-29 code = 355) BLOOD UREA NITROGEN 34 mg/dL 7-21 H (BEAKER) (test code = 354) CREATININE (BEAKER) 1.77 mg/dL 0.57-1.25 H (test code = 358) GLUCOSE RANDOM 128 mg/dL 70-105 H (BEAKER) (test code = 652) CALCIUM (BEAKER) 9.1 mg/dL 8.4-10.2 (test code = 697) EGFR (BEAKER) (test 39 mL/min/1.73 ESTIMA KATIE GFR IS code = 1092) sq m NOT ACCURATE CREATININE CLEARANCE IN PREDICTING GLOMERULAR FILTRATION RATE . ESTIMATED GFR I S NOT APPLICABLE FOR DIALYSIS PATIEN TS. HEMOGLOBIN AND [id number] 12:09:00 Test Item Value Reference Range Interpretation Comments HEMOGLOBIN (BEAKER) (test code = 7.3 GM/DL 13.7-17.5 L 410) HEMATOCRIT (BEAKER) (test code = 23.0 % 40.1-51.0 L 411) [id number] 07:19:00 Test Item Value Reference Range Interpretation Comments PHOSPHORUS (BEAKER) (test code = 3.0 mg/dL 2.3-4.7 604) [id number] 07:19:00 Test Item Value Reference Range Interpretation Comments MAGNESIUM (BEAKER) (test code = 2.4 mg/dL 1.6-2.6 627) BASIC METABOLIC [id number] 07:19:00 Test Item Value Reference Range Interpretation Comments SODIUM (BEAKER) 141 meq/L 136-145 (test code = 381) POTASSIUM (BEAKER) 4.3 meq/L 3.5-5.1 (test code = 379) CHLORIDE (BEAKER) 111 meq/L 98-107 H (test code = 382) CO2 (BEAKER) (test 24 meq/L 22-29 code = 355) BLOOD UREA NITROGEN 33 mg/dL 7-21 H (BEAKER) (test code = 354) CREATININE (BEAKER) 1.75 mg/dL 0.57-1.25 H (test code = 358) GLUCOSE RANDOM 119 mg/dL 70-105 H (BEAKER) (test code = 652) CALCIUM (BEAKER) 8.7 mg/dL 8.4-10.2 (test code = 697) EGFR (BEAKER) (test 39 mL/min/1.73 ESTIMA KATIE GFR IS code = 1092) sq m NOT ACCURATE CREATININE CLEARANCE IN PREDICTING GLOMERULAR FILTRATION RATE . ESTIMATED GFR I S NOT APPLICABLE FOR DIALYSIS PATIEN TS. CBC (HEMOGRAM ONLY)2018-12-07 05:27:00 Test Item Value Reference Range Interpretation Comments WHITE BLOOD CELL COUNT (BEAKER) 14.5 K/ L 3.5-10.5 H (test code = 775) RED BLOOD CELL COUNT (BEAKER) 2.29 M/ L 4.63-6.08 L (test code = 761) HEMOGLOBIN (BEAKER) (test code = 7.3 GM/DL 13.7-17.5 L 410) HEMATOCRIT (BEAKER) (test code = 22.2 % 40.1-51.0 L 411) MEAN CORPUSCULAR VOLUME (BEAKER) 96.9 fL 79.0-92.2 H (test code = 753) MEAN CORPUSCULAR HEMOGLOBIN 31.9 pg 25.7-32.2 (BEAKER) (test code = 751) MEAN CORPUSCULAR HEMOGLOBIN CONC 32.9 GM/DL 32.3-36.5 (BEAKER) (test code = 752) RED CELL DISTRIBUTION WIDTH 15.2 % 11.6-14.4 H (BEAKER) (test code = 412) PLATELET COUNT (BEAKER) (test 159 K/CU MM 150-450 code = 756) MEAN PLATELET VOLUME (BEAKER) 11.9 fL 9.4-12.4 (test code = 754) NUCLEATED RED BLOOD CELLS 0 /100 WBC 0-0 (BEAKER) (test code = 413) RAD, CHEST, 1 VIEW, NON [id number] 05:15:00Reason for exam:->post operative cardiacShould this be [...] Henriquez Verified Date/Time: 12/07/2018 05:15:09 Reading Location: [address] Transitional Reading Room BASIC METABOLIC [id number] 00:00:00 Test Item Value Reference Range Interpretation Comments SODIUM (BEAKER) 141 meq/L 136-145 (test code = 381) POTASSIUM (BEAKER) 4.4 meq/L 3.5-5.1 (test code = 379) CHLORIDE (BEAKER) 110 meq/L 98-107 H (test code = 382) CO2 (BEAKER) (test 22 meq/L 22-29 code = 355) BLOOD UREA NITROGEN 32 mg/dL 7-21 H (BEAKER) (test code = 354) CREATININE (BEAKER) 1.78 mg/dL 0.57-1.25 H (test code = 358) GLUCOSE RANDOM 153 mg/dL 70-105 H (BEAKER) (test code = 652) CALCIUM (BEAKER) 8.9 mg/dL 8.4-10.2 (test code = 697) EGFR (BEAKER) (test 38 mL/min/1.73 ESTIMA KATIE GFR IS code = 1092) sq m NOT ACCURATE CREATININE CLEARANCE IN PREDICTING GLOMERULAR FILTRATION RATE . ESTIMATED GFR I S NOT APPLICABLE FOR DIALYSIS PATIEN TS. HEMOGLOBIN AND [id number] 22:57:00 Test Item Value Reference Range Interpretation Comments HEMOGLOBIN (BEAKER) (test code = 6.9 GM/DL 13.7-17.5 L 410) HEMATOCRIT (BEAKER) (test code = 21.1 % 40.1-51.0 L 411) BASIC METABOLIC [id number] 16:15:00 Test Item Value Reference Range Interpretation Comments SODIUM (BEAKER) 140 meq/L 136-145 (test code = 381) POTASSIUM (BEAKER) 5.0 meq/L 3.5-5.1 Specimen slightly (test code = 379) hemolyzed CHLORIDE (BEAKER) 110 meq/L 98-107 H (test code = 382) CO2 (BEAKER) (test 22 meq/L 22-29 code = 355) BLOOD UREA NITROGEN 30 mg/dL 7-21 H (BEAKER) (test code = 354) CREATININE (BEAKER) 1.77 mg/dL 0.57-1.25 H Specimen slightly (test code = 358) hemolyzed GLUCOSE RANDOM 146 mg/dL 70-105 H (BEAKER) (test code = 652) CALCIUM (BEAKER) 8.8 mg/dL 8.4-10.2 (test code = 697) EGFR (BEAKER) (test 39 mL/min/1.73 ESTIMA KATIE GFR IS code = 1092) sq m NOT ACCURATE CREATININE CLEARANCE IN PREDICTING GLOMERULAR FILTRATION RATE . ESTIMATED GFR I S NOT APPLICABLE FOR DIALYSIS PATIEN TS. HEMOGLOBIN AND [id number] 15:58:00 Test Item Value Reference Range Interpretation Comments HEMOGLOBIN (BEAKER) (test code = 7.2 GM/DL 13.7-17.5 L 410) HEMATOCRIT (BEAKER) (test code = 22.0 % 40.1-51.0 L 411) PROTEIN ELECTROPHORESIS, [id number] 11:34:00 Test Item Value Reference Range Interpretation Comments ALBUMIN FRACTION 3.1 g/dL 3.5-5.5 L (BEAKER) (test code = 405) ALPHA 1 FRACTION 0.2 g/dL 0.2-0.4 (BEAKER) (test code = 389) ALPHA 2 FRACTION 0.8 g/dL 0.5-0.9 (BEAKER) (test code = 390) BETA FRACTION 0.8 g/dL 0.6-1.1 (BEAKER) (test code = 392) GAMMA GLOBULIN 1.1 g/dL 0.7-1.7 FRACTION (BEAKER) (test code = 391) INTERPRETATION-119 All fractions present in (BEAKER) (test code = expected distribution 2615) with slight decrease in serum albumin. No monoclonal bands detected. [id number] Terrie Rubio MD (BEAKER) (test code = (electronic signature) 2616) PROTEIN TOTAL SERUM, 6.1 gm/dL 6.0-8.3 SPEP (BEAKER) (test code = 2660) [id number] 10:57:00 Test Item Value Reference Range Interpretation Comments POTASSIUM (BEAKER) 5.4 meq/L 3.5-5.1 H Specimen slightly (test code = 379) hemolyzed Every 8 hours PRN for Creatinine greater than or equal to 2 mg/dL.CBC W/PLT COUNT & AUTO [id number] 10:43:00 Test Item Value Reference Range Interpretation Comments WHITE BLOOD CELL COUNT (BEAKER) 11.6 K/ L 3.5-10.5 H (test code = 775) RED BLOOD CELL COUNT (BEAKER) 2.33 M/ L 4.63-6.08 L (test code = 761) HEMOGLOBIN (BEAKER) (test code = 7.5 GM/DL 13.7-17.5 L 410) HEMATOCRIT (BEAKER) (test code = 23.2 % 40.1-51.0 L 411) MEAN CORPUSCULAR VOLUME (BEAKER) 99.6 fL 79.0-92.2 H (test code = 753) MEAN CORPUSCULAR HEMOGLOBIN 32.2 pg 25.7-32.2 (BEAKER) (test code = 751) MEAN CORPUSCULAR HEMOGLOBIN CONC 32.3 GM/DL 32.3-36.5 (BEAKER) (test code = 752) RED CELL DISTRIBUTION WIDTH 13.7 % 11.6-14.4 (BEAKER) (test code = 412) PLATELET COUNT (BEAKER) (test 203 K/CU MM 150-450 code = 756) MEAN PLATELET VOLUME (BEAKER) 11.8 fL 9.4-12.4 (test code = 754) NUCLEATED RED BLOOD CELLS 0 /100 WBC 0-0 (BEAKER) (test code = 413) NEUTROPHILS RELATIVE PERCENT 85 % (BEAKER) (test code = 429) LYMPHOCYTES RELATIVE PERCENT 8 % (BEAKER) (test code = 430) MONOCYTES RELATIVE PERCENT 6 % (BEAKER) (test code = 431) EOSINOPHILS RELATIVE PERCENT 0 % (BEAKER) (test code = 432) BASOPHILS RELATIVE PERCENT 0 % (BEAKER) (test code = 437) NEUTROPHILS ABSOLUTE COUNT 9.92 K/ L 1.78-5.38 H (BEAKER) (test code = 670) LYMPHOCYTES ABSOLUTE COUNT 0.95 K/ L 1.32-3.57 L (BEAKER) (test code = 414) MONOCYTES ABSOLUTE COUNT (BEAKER) 0.68 K/ L 0.30-0.82 (test code = 415) EOSINOPHILS ABSOLUTE COUNT 0.00 K/ L 0.04-0.54 L (BEAKER) (test code = 416) BASOPHILS ABSOLUTE COUNT (BEAKER) 0.01 K/ L 0.01-0.08 (test code = 417) IMMATURE GRANULOCYTES-RELATIVE 1 % 0-1 PERCENT (BEAKER) (test code = 2801) RAD, CHEST, 1 VIEW, NON [id number] 08:09:00Reason for exam:->post operative cardiacShould this be performed at the bedside?->YesFINAL REPORT AP view of the chest dated 12/06/2018 COMPARISON: 12/06/2018 CLINICAL INFORMATION: post operative cardiac Comment: Heart [...] MDReport Verified Date/Time: 12/06/2018 08:09:04 Reading Location: [facility] [id number] Ortho Consult ReadingRoom POTASSIUM-STAT [id number] 06:31:00 Test Item Value Reference Range Interpretation Comments POTASSIUM (BEAKER) (test code = 4.9 meq/L 3.6-5.5 379) BLOOD GAS, [id number] 06:20:00 Test Item Value Reference Range Interpretation Comments PH ARTERIAL (BEAKER) (test code = 7.40 7.35-7.45 383) PCO2 ARTERIAL (BEAKER) (test code 37 mmHg 35-45 = 384) PO2 ARTERIAL (BEAKER) (test code 78 mmHg 80-90 L = 385) O2 SATURATION ARTERIAL (BEAKER) 95.7 % 96.0-97.0 L (test code = 386) HCO3 ARTERIAL (BEAKER) (test code 22 mmol/L 21-29 = 388) BASE EXCESS ARTERIAL (BEAKER) -2.4 mmol/L -2.0-3.0 L (test code = 387) PATIENT TEMPERATURE (BEAKER) 36.8 C (test code = 1818) FIO2 (BEAKER) (test code = 1819) 21.0 % [id number] 06:11:00 Test Item Value Reference Range Interpretation Comments PHOSPHORUS (BEAKER) (test code = 4.3 mg/dL 2.3-4.7 604) [id number] 06:11:00 Test Item Value Reference Range Interpretation Comments MAGNESIUM (BEAKER) (test code = 2.3 mg/dL 1.6-2.6 627) BASIC METABOLIC [id number] 06:11:00 Test Item Value Reference Range Interpretation Comments SODIUM (BEAKER) 140 meq/L 136-145 (test code = 381) POTASSIUM (BEAKER) 5.6 meq/L 3.5-5.1 H (test code = 379) CHLORIDE (BEAKER) 111 meq/L 98-107 H (test code = 382) CO2 (BEAKER) (test 21 meq/L 22-29 L code = 355) BLOOD UREA NITROGEN 25 mg/dL 7-21 H (BEAKER) (test code = 354) CREATININE (BEAKER) 1.74 mg/dL 0.57-1.25 H (test code = 358) GLUCOSE RANDOM 171 mg/dL 70-105 H (BEAKER) (test code = 652) CALCIUM (BEAKER) 8.8 mg/dL 8.4-10.2 (test code = 697) EGFR (BEAKER) (test 39 mL/min/1.73 ESTIMA KATIE GFR IS code = 1092) sq m NOT ACCURATE CREATININE CLEARANCE IN PREDICTING GLOMERULAR FILTRATION RATE . ESTIMATED GFR I S NOT APPLICABLE FOR DIALYSIS PATIEN TS. CBC (HEMOGRAM ONLY)2018-12-06 05:01:00 Test Item Value Reference Range Interpretation Comments WHITE BLOOD CELL COUNT (BEAKER) 11.6 K/ L 3.5-10.5 H (test code = 775) RED BLOOD CELL COUNT (BEAKER) 2.45 M/ L 4.63-6.08 L (test code = 761) HEMOGLOBIN (BEAKER) (test code = 7.7 GM/DL 13.7-17.5 L 410) HEMATOCRIT (BEAKER) (test code = 24.5 % 40.1-51.0 L 411) MEAN CORPUSCULAR VOLUME (BEAKER) 100.0 fL 79.0-92.2 H (test code = 753) MEAN CORPUSCULAR HEMOGLOBIN 31.4 pg 25.7-32.2 (BEAKER) (test code = 751) MEAN CORPUSCULAR HEMOGLOBIN CONC 31.4 GM/DL 32.3-36.5 L (BEAKER) (test code = 752) RED CELL DISTRIBUTION WIDTH 13.7 % 11.6-14.4 (BEAKER) (test code = 412) PLATELET COUNT (BEAKER) (test 203 K/CU MM 150-450 code = 756) MEAN PLATELET VOLUME (BEAKER) 11.2 fL 9.4-12.4 (test code = 754) NUCLEATED RED BLOOD CELLS 0 /100 WBC 0-0 (BEAKER) (test code = 413) PLATELET [id number] 04:57:00 Test Item Value Reference Range Interpretation Comments PLATELET COUNT (BEAKER) (test 203 K/CU MM 150-450 code = 756) RAD, CHEST, 1 VIEW, NON [id number] 00:32:00Reason for exam:->chest tubes FINAL REPORT EXAMINATION: AP PORTABLE CHEST RADIOGRAPH CLINICAL INDICATION: Chest tubes IMPRESSION: Compared with 12/05/2018. 1813 hours. The endotracheal and nasogastric tubes [...] MDReport Verified Date/Time: 12/06/2018 00:32:25 Reading Location: [address] Reading Room Electronically signedby: OSMEL MCCANN M.D. on 12/06/2018 12:32 [id number] 23:36:00 Test Item Value Reference Range Interpretation Comments PROTIME (BEAKER) (test code = 16.6 seconds 11.7-14.7 H 759) INR (BEAKER) (test code = 370) 1.3 <=5.9 PARTIAL THROMBOPLASTIN TIME 32.4 seconds 22.5-36.0 (BEAKER) (test code = 760) RECOMMENDED COUMADIN/WARFARIN INR THERAPY RANGESSTANDARD DOSE: 2.0 - 3.0 Includes: PROPHYLAXIS forvenous thrombosis, systemic embolization; TREATMENT for venous thrombosis and/or pulmonary embolus.HIGH RISK: Target INR is 2.5-3.5 for patients with mechanical heart valves.[id number] 23:35:00 Test Item Value Reference Range Interpretation Comments FIBRINOGEN LEVEL (BEAKER) (test 340 mg/dl 225-434 code = 658) CBC W/PLT COUNT & AUTO [id number] 23:15:00 Test Item Value Reference Range Interpretation Comments WHITE BLOOD CELL COUNT (BEAKER) 11.8 K/ L 3.5-10.5 H (test code = 775) RED BLOOD CELL COUNT (BEAKER) 2.69 M/ L 4.63-6.08 L (test code = 761) HEMOGLOBIN (BEAKER) (test code = 8.6 GM/DL 13.7-17.5 L 410) HEMATOCRIT (BEAKER) (test code = 26.4 % 40.1-51.0 L 411) MEAN CORPUSCULAR VOLUME (BEAKER) 98.1 fL 79.0-92.2 H (test code = 753) MEAN CORPUSCULAR HEMOGLOBIN 32.0 pg 25.7-32.2 (BEAKER) (test code = 751) MEAN CORPUSCULAR HEMOGLOBIN CONC 32.6 GM/DL 32.3-36.5 (BEAKER) (test code = 752) RED CELL DISTRIBUTION WIDTH 13.4 % 11.6-14.4 (BEAKER) (test code = 412) PLATELET COUNT (BEAKER) (test 160 K/CU MM 150-450 code = 756) MEAN PLATELET VOLUME (BEAKER) 11.1 fL 9.4-12.4 (test code = 754) NUCLEATED RED BLOOD CELLS 0 /100 WBC 0-0 (BEAKER) (test code = 413) NEUTROPHILS RELATIVE PERCENT 87 % (BEAKER) (test code = 429) LYMPHOCYTES RELATIVE PERCENT 5 % (BEAKER) (test code = 430) MONOCYTES RELATIVE PERCENT 6 % (BEAKER) (test code = 431) EOSINOPHILS RELATIVE PERCENT 0 % (BEAKER) (test code = 432) BASOPHILS RELATIVE PERCENT 0 % (BEAKER) (test code = 437) NEUTROPHILS ABSOLUTE COUNT 10.30 K/ L 1.78-5.38 H (BEAKER) (test code = 670) LYMPHOCYTES ABSOLUTE COUNT 0.64 K/ L 1.32-3.57 L (BEAKER) (test code = 414) MONOCYTES ABSOLUTE COUNT (BEAKER) 0.75 K/ L 0.30-0.82 (test code = 415) EOSINOPHILS ABSOLUTE COUNT 0.00 K/ L 0.04-0.54 L (BEAKER) (test code = 416) BASOPHILS ABSOLUTE COUNT (BEAKER) 0.03 K/ L 0.01-0.08 (test code = 417) IMMATURE GRANULOCYTES-RELATIVE 1 % 0-1 PERCENT (BEAKER) (test code = 2801) BLOOD GAS, [id number] 23:13:00 Test Item Value Reference Range Interpretation Comments PH ARTERIAL (BEAKER) (test code = 7.38 7.35-7.45 383) PCO2 ARTERIAL (BEAKER) (test code 37 mmHg 35-45 = 384) PO2 ARTERIAL (BEAKER) (test code 165 mmHg 80-90 H = 385) O2 SATURATION ARTERIAL (BEAKER) 99.1 % 96.0-97.0 H (test code = 386) HCO3 ARTERIAL (BEAKER) (test code 21 mmol/L 21-29 = 388) BASE EXCESS ARTERIAL (BEAKER) -3.2 mmol/L -2.0-3.0 L (test code = 387) PATIENT TEMPERATURE (BEAKER) 37.2 C (test code = 1818) FIO2 (BEAKER) (test code = 1819) 36.0 % GLUCOSE-STAT [id number] 23:13:00 Test Item Value Reference Range Interpretation Comments GLUCOSE RANDOM (BEAKER) (test code 172 mg/dL 70-110 H = 652) HGB/HCT (H&H) - STAT [id number] 23:13:00 Test Item Value Reference Range Interpretation Comments HEMOGLOBIN (BEAKER) (test code = 9.1 g/dL 13.0-16.8 L 410) HEMATOCRIT (BEAKER) (test code = 27.0 % 40.0-50.0 L 411) SODIUM NA-STAT [id number] 23:09:00 Test Item Value Reference Range Interpretation Comments SODIUM (BEAKER) (test code = 381) 136 meq/L 135-148 POTASSIUM-STAT [id number] 23:09:00 Test Item Value Reference Range Interpretation Comments POTASSIUM (BEAKER) (test code = 5.0 meq/L 3.6-5.5 379) RAD, CHEST, 1 VIEW, NON [id number] 22:57:00while patient is intubated or has chest [...] Impression: Satisfactory postoperative chest. Signed: Tylor Griffith MDReport Verified Date/Time: 12/05/2018 22:57:32 Reading Location: [facility] [id number] Consult Reading Room [id number] 22:51:00 Test Item Value Reference Range Interpretation Comments ACTIVATED CLOTTING TIME [address] [facility] 6720 (BEAKER) (test code = JAMISON Fontanez [place] [address]) [id number] 22:51:00 Test Item Value Reference Range Interpretation Comments ACTIVATED CLOTTING TIME 521 sec TEST ED AT [place] [address] ([facility]) (test code = [place] [address]) [id number] 22:51:00 Test Item Value Reference Range Interpretation Comments ACTIVATED CLOTTING TIME 527 sec TEST ED AT [place] [address] ([facility]) (test code = JAMISON Fontanez [place] [address]) [id number] 22:51:00 Test Item Value Reference Range Interpretation Comments ACTIVATED CLOTTING TIME 483 sec TEST ED AT [place] [address] ([facility]) (test code = JAMISON Fontane[place] [address]) [id number] 22:51:00 Test Item Value Reference Range Interpretation Comments ACTIVATED CLOTTING TIME 483 sec TEST ED AT [place] [address] ([facility]) (test code = [place]ISON [place] [address]) [id number] 22:51:00 Test Item Value Reference Range Interpretation Comments ACTIVATED CLOTTING TIME 698 sec TEST ED AT [place] [address] ([facility]) (test code = JAMISON Fontane[place] [address]) [id number] 22:51:00 Test Item Value Reference Range Interpretation Comments ACTIVATED CLOTTING TIME 439 sec TEST ED AT [place] [address] ([facility]) (test code = JAMISON Fontane[place] [address]) [id number] BLOOD GAS, [id number] 21:49:00 Test Item Value Reference Range Interpretation Comments PH ARTERIAL (BEAKER) (test code = 7.41 7.35-7.45 383) PCO2 ARTERIAL (BEAKER) (test code 36 mmHg 35-45 = 384) PO2 ARTERIAL (BEAKER) (test code 157 mmHg 80-90 H = 385) O2 SATURATION ARTERIAL (BEAKER) 99.1 % 96.0-97.0 H (test code = 386) HCO3 ARTERIAL (BEAKER) (test code 22 mmol/L -29 = 388) BASE EXCESS ARTERIAL (BEAKER) -2.1 mmol/L -2.0-3.0 L (test code = 387) PATIENT TEMPERATURE (BEAKER) 36.7 C (test code = 1818) FIO2 (BEAKER) (test code = 1819) 40.0 % CALCIUM, [id number] 19:50:00 Test Item Value Reference Range Interpretation Comments CALCIUM IONIZED (BEAKER) (test 1.11 mmol/L 1.12-1.27 L code = 698) PH, BLOOD (BEAKER) (test code = 7.51 1810) HGB/HCT (H&H) - STAT [id number] 19:50:00 Test Item Value Reference Range Interpretation Comments HEMOGLOBIN (BEAKER) (test code = 9.3 g/dL 13.0-16.8 L 410) HEMATOCRIT (BEAKER) (test code = 27.0 % 40.0-50.0 L 411) THROMBOELASTOGRAPH (TEG)2018-12-05 18:56:00 Test Item Value Reference Range Interpretation Comments TEG ACTIVATED CLOTTING TIME 13.0 minutes 4.0-7.0 H (BEAKER) (test code = 1407) TEG FIBRINOGEN ACTIVITY (BEAKER) 55.7 degrees 61.0-73.0 L (test code = 1408) TEG PLT. AGGREGATION (BEAKER) 57.3 MM 55.0-65.0 (test code = 1409) TEG FIBRINOLYSIS (BEAKER) (test 0.0 % 0.0-5.0 code = 1410) TGH ACTIVATED CLOTTING TIME 7.2 minutes 4.0-7.0 H (BEAKER) (test code = 1411) TGH FIBRINOGEN ACTIVITY (BEAKER) 71.5 degrees 61.0-73.0 (test code = 1412) TGH PLT. AGGREGATION (BEAKER) 56.9 MM 55.0-65.0 (test code = 1413) TGH FIBRINOLYSIS (BEAKER) (test 0.0 % 0.0-5.0 code = 1414) [id number] 17:58:00 Test Item Value Reference Range Interpretation Comments PROTIME (BEAKER) (test code = 16.5 seconds 11.7-14.7 H 759) INR (BEAKER) (test code = 370) 1.3 <=5.9 PARTIAL THROMBOPLASTIN TIME 44.1 seconds 22.5-36.0 H (BEAKER) (test code = 760) RECOMMENDED COUMADIN/WARFARIN INR THERAPY RANGESSTANDARD DOSE: 2.0 - 3.0 Includes: PROPHYLAXIS forvenous thrombosis, systemic embolization; TREATMENT for venous thrombosis and/or pulmonary embolus.HIGH RISK: Target INR is 2.5-3.5 for patients with mechanical heart valves.PROTHROMBIN [id number] 17:57:00 Test Item Value Reference Range Interpretation Comments PROTIME (BEAKER) (test code = 16.5 seconds 11.7-14.7 H 759) INR (BEAKER) (test code = 370) 1.3 <=5.9 RECOMMENDED COUMADIN/WARFARIN INR THERAPY RANGESSTANDARD DOSE: 2.0 - 3.0 Includes: PROPHYLAXIS forvenous thrombosis, systemic embolization; TREATMENT for venous thrombosis and/or pulmonary embolus.HIGH RISK: Target INR is 2.5-3.5 for patients with mechanical heart valves.[id number] 17:57:00 Test Item Value Reference Range Interpretation Comments FIBRINOGEN LEVEL (BEAKER) (test 347 mg/dl 225-434 code = 658) [id number] 17:27:00 Test Item Value Reference Range Interpretation Comments PHOSPHORUS (BEAKER) (test code = 3.3 mg/dL 2.3-4.7 604) [id number] 17:27:00 Test Item Value Reference Range Interpretation Comments MAGNESIUM (BEAKER) (test code = 2.6 mg/dL 1.6-2.6 627) BASIC METABOLIC [id number] 17:27:00 Test Item Value Reference Range Interpretation Comments SODIUM (BEAKER) 141 meq/L 136-145 (test code = 381) POTASSIUM (BEAKER) 4.1 meq/L 3.5-5.1 (test code = 379) CHLORIDE (BEAKER) 111 meq/L 98-107 H (test code = 382) CO2 (BEAKER) (test 22 meq/L 22-29 code = 355) BLOOD UREA NITROGEN 20 mg/dL 7-21 (BEAKER) (test code = 354) CREATININE (BEAKER) 1.55 mg/dL 0.57-1.25 H (test code = 358) GLUCOSE RANDOM 140 mg/dL 70-105 H (BEAKER) (test code = 652) CALCIUM (BEAKER) 9.1 mg/dL 8.4-10.2 (test code = 697) EGFR (BEAKER) (test 45 mL/min/1.73 ESTIMA KATIE GFR IS code = 1092) sq m NOT ACCURATE CREATININE CLEARANCE IN PREDICTING GLOMERULAR FILTRATION RATE . ESTIMATED GFR I S NOT APPLICABLE FOR DIALYSIS PATIEN TS. LACTIC ACID, [id number] 17:21:00 Test Item Value Reference Range Interpretation Comments LACTATE BLOOD ARTERIAL (2) 1.9 mmol/L 0.5-2.2 (BEAKER) (test code = 2874) OXYGEN SATURATION, [id number] 17:10:00 Test Item Value Reference Range Interpretation Comments O2 SATURATION (MEASURED) (BEAKER) 81.3 % (test code = 1455) CBC W/PLT COUNT & AUTO [id number] 17:07:00 Test Item Value Reference Range Interpretation Comments WHITE BLOOD CELL COUNT (BEAKER) 12.6 K/ L 3.5-10.5 H (test code = 775) RED BLOOD CELL COUNT (BEAKER) 2.99 M/ L 4.63-6.08 L (test code = 761) HEMOGLOBIN (BEAKER) (test code = 9.8 GM/DL 13.7-17.5 L 410) HEMATOCRIT (BEAKER) (test code = 29.4 % 40.1-51.0 L 411) MEAN CORPUSCULAR VOLUME (BEAKER) 98.3 fL 79.0-92.2 H (test code = 753) MEAN CORPUSCULAR HEMOGLOBIN 32.8 pg 25.7-32.2 H (BEAKER) (test code = 751) MEAN CORPUSCULAR HEMOGLOBIN CONC 33.3 GM/DL 32.3-36.5 (BEAKER) (test code = 752) RED CELL DISTRIBUTION WIDTH 13.3 % 11.6-14.4 (BEAKER) (test code = 412) PLATELET COUNT (BEAKER) (test 143 K/CU MM 150-450 L code = 756) MEAN PLATELET VOLUME (BEAKER) 11.2 fL 9.4-12.4 (test code = 754) NUCLEATED RED BLOOD CELLS 0 /100 WBC 0-0 (BEAKER) (test code = 413) NEUTROPHILS RELATIVE PERCENT 85 % (BEAKER) (test code = 429) LYMPHOCYTES RELATIVE PERCENT 7 % (BEAKER) (test code = 430) MONOCYTES RELATIVE PERCENT 6 % (BEAKER) (test code = 431) EOSINOPHILS RELATIVE PERCENT 0 % (BEAKER) (test code = 432) BASOPHILS RELATIVE PERCENT 0 % (BEAKER) (test code = 437) NEUTROPHILS ABSOLUTE COUNT 10.74 K/ L 1.78-5.38 H (BEAKER) (test code = 670) LYMPHOCYTES ABSOLUTE COUNT 0.93 K/ L 1.32-3.57 L (BEAKER) (test code = 414) MONOCYTES ABSOLUTE COUNT (BEAKER) 0.81 K/ L 0.30-0.82 (test code = 415) EOSINOPHILS ABSOLUTE COUNT 0.05 K/ L 0.04-0.54 (BEAKER) (test code = 416) BASOPHILS ABSOLUTE COUNT (BEAKER) 0.05 K/ L 0.01-0.08 (test code = 417) IMMATURE GRANULOCYTES-RELATIVE 0 % 0-1 PERCENT (BEAKER) (test code = 2801) SODIUM NA-STAT [id number] 17:05:00 Test Item Value Reference Range Interpretation Comments SODIUM (BEAKER) (test code = 381) 138 meq/L 135-148 POTASSIUM-STAT [id number] 17:05:00 Test Item Value Reference Range Interpretation Comments POTASSIUM (BEAKER) (test code = 3.9 meq/L 3.6-5.5 379) BLOOD GAS, [id number] 17:05:00 Test Item Value Reference Range Interpretation Comments PH ARTERIAL (BEAKER) (test code = 7.44 7.35-7.45 383) PCO2 ARTERIAL (BEAKER) (test code 35 mmHg 35-45 = 384) PO2 ARTERIAL (BEAKER) (test code 294 mmHg 80-90 H = 385) O2 SATURATION ARTERIAL (BEAKER) 99.7 % 96.0-97.0 H (test code = 386) HCO3 ARTERIAL (BEAKER) (test code 23 mmol/L 21-29 = 388) BASE EXCESS ARTERIAL (BEAKER) -1.3 mmol/L -2.0-3.0 (test code = 387) PATIENT TEMPERATURE (BEAKER) 34.6 C (test code = 1818) FIO2 (BEAKER) (test code = 1819) 80.0 % GLUCOSE-STAT [id number] 17:05:00 Test Item Value Reference Range Interpretation Comments GLUCOSE RANDOM (BEAKER) (test code 140 mg/dL 70-110 H = 652) HGB/HCT (H&H) - STAT [id number] 17:05:00 Test Item Value Reference Range Interpretation Comments HEMOGLOBIN (BEAKER) (test code = 10.1 g/dL 13.0-16.8 L 410) HEMATOCRIT (BEAKER) (test code = 30.0 % 40.0-50.0 L 411) THROMBOELASTOGRAPH (TEG)2018-12-05 15:43:00 Test Item Value Reference Range Interpretation Comments TEG ACTIVATED CLOTTING TIME 4.8 minutes 4.0-7.0 (BEAKER) (test code = 1407) TEG FIBRINOGEN ACTIVITY (BEAKER) 73.0 degrees 61.0-73.0 (test code = 1408) TEG PLT. AGGREGATION (BEAKER) 63.4 MM 55.0-65.0 (test code = 1409) TGH ACTIVATED CLOTTING TIME 4.9 minutes 4.0-7.0 (BEAKER) (test code = 1411) TGH FIBRINOGEN ACTIVITY (BEAKER) 73.1 degrees 61.0-73.0 H (test code = 1412) TGH PLT. AGGREGATION (BEAKER) 63.7 MM 55.0-65.0 (test code = 1413) [id number] 14:59:00 Test Item Value Reference Range Interpretation Comments FIBRINOGEN LEVEL (BEAKER) (test 368 mg/dl 225-434 code = 658) [id number] 14:59:00 Test Item Value Reference Range Interpretation Comments PROTIME (BEAKER) (test code = 17.1 seconds 11.7-14.7 H 759) INR (BEAKER) (test code = 370) 1.4 <=5.9 PARTIAL THROMBOPLASTIN TIME 27.8 seconds 22.5-36.0 (BEAKER) (test code = 760) RECOMMENDED COUMADIN/WARFARIN INR THERAPY RANGESSTANDARD DOSE: 2.0 - 3.0 Includes: PROPHYLAXIS forvenous thrombosis, systemic embolization; TREATMENT for venous thrombosis and/or pulmonary embolus.HIGH RISK: Target INR is 2.5-3.5 for patients with mechanical heart valves.CBC (HEMOGRAM ONLY)2018-12-05 14:51:00 Test Item Value Reference Range Interpretation Comments WHITE BLOOD CELL COUNT (BEAKER) 15.7 K/ L 3.5-10.5 H (test code = 775) RED BLOOD CELL COUNT (BEAKER) 3.11 M/ L 4.63-6.08 L (test code = 761) HEMOGLOBIN (BEAKER) (test code = 10.0 GM/DL 13.7-17.5 L 410) HEMATOCRIT (BEAKER) (test code = 30.7 % 40.1-51.0 L 411) MEAN CORPUSCULAR VOLUME (BEAKER) 98.7 fL 79.0-92.2 H (test code = 753) MEAN CORPUSCULAR HEMOGLOBIN 32.2 pg 25.7-32.2 (BEAKER) (test code = 751) MEAN CORPUSCULAR HEMOGLOBIN CONC 32.6 GM/DL 32.3-36.5 (BEAKER) (test code = 752) RED CELL DISTRIBUTION WIDTH 13.2 % 11.6-14.4 (BEAKER) (test code = 412) PLATELET COUNT (BEAKER) (test 111 K/CU MM 150-450 L code = 756) MEAN PLATELET VOLUME (BEAKER) 11.8 fL 9.4-12.4 (test code = 754) NUCLEATED RED BLOOD CELLS 0 /100 WBC 0-0 (BEAKER) (test code = 413) BLOOD GAS, [id number] 14:15:00 Test Item Value Reference Range Interpretation Comments PH ARTERIAL (BEAKER) (test code = 7.37 7.35-7.45 383) PCO2 ARTERIAL (BEAKER) (test code 45 mmHg 35-45 = 384) PO2 ARTERIAL (BEAKER) (test code = 196 mmHg 80-90 H 385) O2 SATURATION ARTERIAL (BEAKER) 99.3 % 96.0-97.0 H (test code = 386) HCO3 ARTERIAL (BEAKER) (test code 26 mmol/L 21-29 = 388) BASE EXCESS ARTERIAL (BEAKER) 0.1 mmol/L -2.0-3.0 (test code = 387) PATIENT TEMPERATURE (BEAKER) (test 35.8 C code = 1818) FIO2 (BEAKER) (test code = 1819) 95.0 % GLUCOSE-STAT [id number] 14:15:00 Test Item Value Reference Range Interpretation Comments GLUCOSE RANDOM (BEAKER) (test code 196 mg/dL 70-110 H = 652) HGB/HCT (H&H) - STAT [id number] 14:15:00 Test Item Value Reference Range Interpretation Comments HEMOGLOBIN (BEAKER) (test code = 9.9 g/dL 13.0-16.8 L 410) HEMATOCRIT (BEAKER) (test code = 29.0 % 40.0-50.0 L 411) SODIUM NA-STAT [id number] 14:13:00 Test Item Value Reference Range Interpretation Comments SODIUM (BEAKER) (test code = 381) 136 meq/L 135-148 POTASSIUM-STAT [id number] 14:13:00 Test Item Value Reference Range Interpretation Comments POTASSIUM (BEAKER) (test code = 4.9 meq/L 3.6-5.5 379) BLOOD GAS, [id number] 13:59:00 Test Item Value Reference Range Interpretation Comments PH ARTERIAL (BEAKER) (test code = 7.38 7.35-7.45 383) PCO2 ARTERIAL (BEAKER) (test code 45 mmHg 35-45 = 384) PO2 ARTERIAL (BEAKER) (test code = 317 mmHg 80-90 H 385) O2 SATURATION ARTERIAL (BEAKER) 99.7 % 96.0-97.0 H (test code = 386) HCO3 ARTERIAL (BEAKER) (test code 26 mmol/L 21-29 = 388) BASE EXCESS ARTERIAL (BEAKER) 0.8 mmol/L -2.0-3.0 (test code = 387) PATIENT TEMPERATURE (BEAKER) (test 36.7 C code = 1818) FIO2 (BEAKER) (test code = 1819) 90.0 % POTASSIUM-STAT [id number] 13:59:00 Test Item Value Reference Range Interpretation Comments POTASSIUM (BEAKER) (test code = 5.7 meq/L 3.6-5.5 H 379) GLUCOSE-STAT [id number] 13:59:00 Test Item Value Reference Range Interpretation Comments GLUCOSE RANDOM (BEAKER) (test code 221 mg/dL 70-110 H = 652) HGB/HCT (H&H) - STAT [id number] 13:59:00 Test Item Value Reference Range Interpretation Comments HEMOGLOBIN (BEAKER) (test code = 10.2 g/dL 13.0-16.8 L 410) HEMATOCRIT (BEAKER) (test code = 30.0 % 40.0-50.0 L 411) SODIUM NA-STAT [id number] 13:44:00 Test Item Value Reference Range Interpretation Comments SODIUM (BEAKER) (test code = 381) 135 meq/L 135-148 BLOOD GAS, [id number] 13:11:00 Test Item Value Reference Range Interpretation Comments PH ARTERIAL (BEAKER) (test code = 7.41 7.35-7.45 383) PCO2 ARTERIAL (BEAKER) (test code 37 mmHg 35-45 = 384) PO2 ARTERIAL (BEAKER) (test code 310 mmHg 80-90 H = 385) O2 SATURATION ARTERIAL (BEAKER) 99.7 % 96.0-97.0 H (test code = 386) HCO3 ARTERIAL (BEAKER) (test code 24 mmol/L 21-29 = 388) BASE EXCESS ARTERIAL (BEAKER) -1.5 mmol/L -2.0-3.0 (test code = 387) PATIENT TEMPERATURE (BEAKER) 32.7 C (test code = 1818) FIO2 (BEAKER) (test code = 1819) 70.0 % GLUCOSE-STAT [id number] 13:11:00 Test Item Value Reference Range Interpretation Comments GLUCOSE RANDOM (BEAKER) (test code 218 mg/dL 70-110 H = 652) HGB/HCT (H&H) - STAT [id number] 13:11:00 Test Item Value Reference Range Interpretation Comments HEMOGLOBIN (BEAKER) (test code = 9.9 g/dL 13.0-16.8 L 410) HEMATOCRIT (BEAKER) (test code = 29.0 % 40.0-50.0 L 411) SODIUM NA-STAT [id number] 13:09:00 Test Item Value Reference Range Interpretation Comments SODIUM (BEAKER) (test code = 381) 135 meq/L 135-148 POTASSIUM-STAT [id number] 13:09:00 Test Item Value Reference Range Interpretation Comments POTASSIUM (BEAKER) (test code = 5.3 meq/L 3.6-5.5 379) BLOOD GAS, [id number] 12:50:00 Test Item Value Reference Range Interpretation Comments PH ARTERIAL (BEAKER) (test code = 7.44 7.35-7.45 383) PCO2 ARTERIAL (BEAKER) (test code 36 mmHg 35-45 = 384) PO2 ARTERIAL (BEAKER) (test code 278 mmHg 80-90 H = 385) O2 SATURATION ARTERIAL (BEAKER) 99.7 % 96.0-97.0 H (test code = 386) HCO3 ARTERIAL (BEAKER) (test code 25 mmol/L 21-29 = 388) BASE EXCESS ARTERIAL (BEAKER) -0.7 mmol/L -2.0-3.0 (test code = 387) PATIENT TEMPERATURE (BEAKER) 30.2 C (test code = 1818) FIO2 (BEAKER) (test code = 1819) 65.0 % GLUCOSE-STAT [id number] 12:50:00 Test Item Value Reference Range Interpretation Comments GLUCOSE RANDOM (BEAKER) (test code 208 mg/dL 70-110 H = 652) HGB/HCT (H&H) - STAT [id number] 12:50:00 Test Item Value Reference Range Interpretation Comments HEMOGLOBIN (BEAKER) (test code = 9.7 g/dL 13.0-16.8 L 410) HEMATOCRIT (BEAKER) (test code = 29.0 % 40.0-50.0 L 411) SODIUM NA-STAT [id number] 12:49:00 Test Item Value Reference Range Interpretation Comments SODIUM (BEAKER) (test code = 381) 135 meq/L 135-148 POTASSIUM-STAT [id number] 12:49:00 Test Item Value Reference Range Interpretation Comments POTASSIUM (BEAKER) (test code = 5.1 meq/L 3.6-5.5 379) BLOOD GAS, [id number] 12:23:00 Test Item Value Reference Range Interpretation Comments PH ARTERIAL (BEAKER) (test code = 7.47 7.35-7.45 H 383) PCO2 ARTERIAL (BEAKER) (test code 33 mmHg 35-45 L = 384) PO2 ARTERIAL (BEAKER) (test code = 390 mmHg 80-90 H 385) O2 SATURATION ARTERIAL (BEAKER) 99.8 % 96.0-97.0 H (test code = 386) HCO3 ARTERIAL (BEAKER) (test code 26 mmol/L -29 = 388) BASE EXCESS ARTERIAL (BEAKER) 0.3 mmol/L -2.0-3.0 (test code = 387) PATIENT TEMPERATURE (BEAKER) (test 30.3 C code = 1818) FIO2 (BEAKER) (test code = 1819) 80.0 % GLUCOSE-STAT [id number] 12:23:00 Test Item Value Reference Range Interpretation Comments GLUCOSE RANDOM (BEAKER) (test code 183 mg/dL 70-110 H = 652) HGB/HCT (H&H) - STAT [id number] 12:23:00 Test Item Value Reference Range Interpretation Comments HEMOGLOBIN (BEAKER) (test code = 9.7 g/dL 13.0-16.8 L 410) HEMATOCRIT (BEAKER) (test code = 29.0 % 40.0-50.0 L 411) SODIUM NA-STAT [id number] 12:22:00 Test Item Value Reference Range Interpretation Comments SODIUM (BEAKER) (test code = 381) 135 meq/L 135-148 POTASSIUM-STAT [id number] 12:22:00 Test Item Value Reference Range Interpretation Comments POTASSIUM (BEAKER) (test code = 4.7 meq/L 3.6-5.5 379) SODIUM NA-STAT [id number] 11:58:00 Test Item Value Reference Range Interpretation Comments SODIUM (BEAKER) (test code = 381) 136 meq/L 135-148 POTASSIUM-STAT [id number] 11:58:00 Test Item Value Reference Range Interpretation Comments POTASSIUM (BEAKER) (test code = 4.1 meq/L 3.6-5.5 379) BLOOD GAS, [id number] 11:58:00 Test Item Value Reference Range Interpretation Comments PH ARTERIAL (BEAKER) (test code = 7.45 7.35-7.45 383) PCO2 ARTERIAL (BEAKER) (test code 37 mmHg 35-45 = 384) PO2 ARTERIAL (BEAKER) (test code = 523 mmHg 80-90 H 385) O2 SATURATION ARTERIAL (BEAKER) 99.9 % 96.0-97.0 H (test code = 386) HCO3 ARTERIAL (BEAKER) (test code 26 mmol/L 21-29 = 388) BASE EXCESS ARTERIAL (BEAKER) 0.9 mmol/L -2.0-3.0 (test code = 387) PATIENT TEMPERATURE (BEAKER) (test 33.6 C code = 1818) FIO2 (BEAKER) (test code = 1819) 100.0 % GLUCOSE-STAT [id number] 11:58:00 Test Item Value Reference Range Interpretation Comments GLUCOSE RANDOM (BEAKER) (test code 143 mg/dL 70-110 H = 652) HGB/HCT (H&H) - STAT [id number] 11:58:00 Test Item Value Reference Range Interpretation Comments HEMOGLOBIN (BEAKER) (test code = 10.9 g/dL 13.0-16.8 L 410) HEMATOCRIT (BEAKER) (test code = 32.0 % 40.0-50.0 L 411) BLOOD GAS, [id number] 11:57:00 Test Item Value Reference Range Interpretation Comments PH VENOUS (BEAKER) (test code = 7.42 7.32-7.42 701) PCO2 VENOUS (BEAKER) (test code = 39 mmHg 41-51 L 755) PO2 VENOUS (BEAKER) (test code = 63 mmHg 25-40 H 702) O2 SATURATION VENOUS (BEAKER) 95.3 % 40.0-70.0 H (test code = 703) HCO3 VENOUS (BEAKER) (test code = 26 mmol/L 21-29 705) BASE EXCESS VENOUS (BEAKER) (test 0.0 mmol/L -2.0-3.0 code = 704) PATIENT TEMPERATURE (BEAKER) (test 33.6 C code = 1818) FIO2 (BEAKER) (test code = 1819) 100.0 % HEMOGLOBIN [id number] 10:26:00 Test Item Value Reference Range Interpretation Comments HEMOGLOBIN A1C (BEAKER) (test code = 5.2 % 4.3-6.1 368) PLATELET AGGREGATION: FUNCTION [id number] 09:03:00 Test Item Value Reference Range Interpretation Comments WEAK ADP 55 % 60-91 L RESULT(BEAKER) (test code = 2135) PLATELET FUNCTION 50-59% indicates mild SCREEN INTERP platelet dysfunction (BEAKER) (test code = 2173) [id number] Sam Ramírez MD (BEAKER) (test code = (electronic signature) 5962) PLATELET COUNT AGG 169 K/CU MM 150-450 (BEAKER) (test code = 1826) Platelet Function Screen results may be falsely low with platelet counts<100,000/cu mm.BLOOD GAS, [id number] 08:53:00 Test Item Value Reference Range Interpretation Comments PH ARTERIAL (BEAKER) (test code = 7.49 7.35-7.45 H 383) PCO2 ARTERIAL (BEAKER) (test code 31 mmHg 35-45 L = 384) PO2 ARTERIAL (BEAKER) (test code = 356 mmHg 80-90 H 385) O2 SATURATION ARTERIAL (BEAKER) 99.8 % 96.0-97.0 H (test code = 386) HCO3 ARTERIAL (BEAKER) (test code 23 mmol/L 21-29 = 388) BASE EXCESS ARTERIAL (BEAKER) 0.2 mmol/L -2.0-3.0 (test code = 387) PATIENT TEMPERATURE (BEAKER) (test 36.2 C code = 1818) FIO2 (BEAKER) (test code = 1819) 100.0 % HGB/HCT (H&H) - STAT [id number] 08:53:00 Test Item Value Reference Range Interpretation Comments HEMOGLOBIN (BEAKER) (test code = 12.7 g/dL 13.0-16.8 L 410) HEMATOCRIT (BEAKER) (test code = 37.0 % 40.0-50.0 L 411) CALCIUM, [id number] 08:53:00 Test Item Value Reference Range Interpretation Comments CALCIUM IONIZED (BEAKER) (test 1.05 mmol/L 1.12-1.27 L code = 698) PH, BLOOD (BEAKER) (test code = 7.48 1810) GLUCOSE-STAT [id number] 08:51:00 Test Item Value Reference Range Interpretation Comments GLUCOSE RANDOM (BEAKER) (test code 102 mg/dL 70-110 = 652) SODIUM NA-STAT [id number] 08:51:00 Test Item Value Reference Range Interpretation Comments SODIUM (BEAKER) (test code = 381) 138 meq/L 135-148 POTASSIUM-STAT [id number] 08:51:00 Test Item Value Reference Range Interpretation Comments POTASSIUM (BEAKER) (test code = 4.1 meq/L 3.6-5.5 379) URINALYSIS W/ [id number] 05:26:00 Test Item Value Reference Range Interpretation Comments COLOR (BEAKER) (test code = Yellow 470) CLARITY (BEAKER) (test code = Clear 469) SPECIFIC GRAVITY UA (BEAKER) 1.008 1.001-1.035 (test code = 468) PH UA (BEAKER) (test code = 7.5 5.0-8.0 467) PROTEIN UA (BEAKER) (test code 10 mg/dL Negative A = 464) GLUCOSE UA (BEAKER) (test code Negative Negative = 365) KETONES UA (BEAKER) (test code Negative Negative = 371) BILIRUBIN UA (BEAKER) (test Negative Negative code = 462) BLOOD UA (BEAKER) (test code = Negative Negative 461) NITRITE UA (BEAKER) (test code Negative Negative = 465) LEUKOCYTE ESTERASE UA (BEAKER) Negative Negative (test code = 466) UROBILINOGEN UA (BEAKER) (test 2.0 mg/dL 0.2-1.0 H code = 463) RBC UA (BEAKER) (test code = < /HPF 519) WBC UA (BEAKER) (test code = 0 /HPF 520) MUCUS (BEAKER) (test code = Rare 1574) AMORPHOUS CRYSTALS (BEAKER) Rare (test code = 1584) SOURCE(BEAKER) (test code = Urine, Voided 5949) VITAMIN D, [id number] 05:01:00 Test Item Value Reference Range Interpretation Comments VITAMIN D 25-OH (BEAKER) (test 24.8 ng/mL 6.6-49.9 code = 2764) Effective 06/19/2017: Reference Range ChangeNew: 6.6-49.9 ng/mL Previous: 13.0-47.8 ng/mLRecommended Vitamin D Target Range: 30.0-40.0 ng/mLCREATININE, RANDOM [id number] 04:55:00 Test Item Value Reference Range Interpretation Comments CREATININE URINE (BEAKER) (test 68.3 mg/dL code = 375) Reference Range: No NormalsPROTEIN, RANDOM [id number] 04:55:00 Test Item Value Reference Range Interpretation Comments PROTEIN, URINE (BEAKER) (test code = 19 mg/dL 0-14 H 1569) PTH, [id number] 04:44:00 Test Item Value Reference Range Interpretation Comments PARATHYROID HORMONE INTACT 69.0 pg/mL 8.5-72.5 (BEAKER) (test code = 577) BASIC METABOLIC [id number] 04:41:00 Test Item Value Reference Range Interpretation Comments SODIUM (BEAKER) 140 meq/L 136-145 (test code = 381) POTASSIUM (BEAKER) 4.0 meq/L 3.5-5.1 (test code = 379) CHLORIDE (BEAKER) 108 meq/L 98-107 H (test code = 382) CO2 (BEAKER) (test 23 meq/L 22-29 code = 355) BLOOD UREA NITROGEN 19 mg/dL 7-21 (BEAKER) (test code = 354) CREATININE (BEAKER) 1.65 mg/dL 0.57-1.25 H (test code = 358) GLUCOSE RANDOM 105 mg/dL 70-105 (BEAKER) (test code = 652) CALCIUM (BEAKER) 9.3 mg/dL 8.4-10.2 (test code = 697) EGFR (BEAKER) (test 42 mL/min/1.73 ESTIMA KATIE GFR IS code = 1092) sq m NOT ACCURATE CREATININE CLEARANCE IN PREDICTING GLOMERULAR FILTRATION RATE . ESTIMATED GFR I S NOT APPLICABLE FOR DIALYSIS PATIEN TS. CBC (HEMOGRAM ONLY)2018-12-05 04:24:00 Test Item Value Reference Range Interpretation Comments WHITE BLOOD CELL COUNT (BEAKER) 7.4 K/ L 3.5-10.5 (test code = 775) RED BLOOD CELL COUNT (BEAKER) 3.87 M/ L 4.63-6.08 L (test code = 761) HEMOGLOBIN (BEAKER) (test code = 12.4 GM/DL 13.7-17.5 L 410) HEMATOCRIT (BEAKER) (test code = 37.0 % 40.1-51.0 L 411) MEAN CORPUSCULAR VOLUME (BEAKER) 95.6 fL 79.0-92.2 H (test code = 753) MEAN CORPUSCULAR HEMOGLOBIN 32.0 pg 25.7-32.2 (BEAKER) (test code = 751) MEAN CORPUSCULAR HEMOGLOBIN CONC 33.5 GM/DL 32.3-36.5 (BEAKER) (test code = 752) RED CELL DISTRIBUTION WIDTH 13.2 % 11.6-14.4 (BEAKER) (test code = 412) PLATELET COUNT (BEAKER) (test 174 K/CU MM 150-450 code = 756) MEAN PLATELET VOLUME (BEAKER) 11.8 fL 9.4-12.4 (test code = 754) NUCLEATED RED BLOOD CELLS 0 /100 WBC 0-0 (BEAKER) (test code = 413) RAD, CHEST, 1 VIEW, NON [id number] 20:09:00Reason for exam:->Pre Op (ACB) ScreeninigShould this be performed at the bedside?->YesFINAL REPORT INDICATION: Pre Op (ACB) Screeninig COMPARISON: None TECHNIQUE: S kali frontal view of the chest. FINDINGS: Lungs and pleura: Clear lungs. No effusion.Heart and mediastinum: Normal heart size. Unremarkable mediastinal contours.Osseous structures: No acute abnormality.Other: None. IMPRESSION: No acute intrathoracic abnormality. Signed: Carmen Mcduffie Verified Date/Time: 12/04/2018 20:09:09 Reading Location: [address] Neuro Reading Room [id number] 04:47:00 Test Item Value Reference Range Interpretation Comments PARTIAL THROMBOPLASTIN TIME 83.1 seconds 22.5-36.0 H (BEAKER) (test code = 760) [id number] 04:44:00 Test Item Value Reference Range Interpretation Comments MAGNESIUM (BEAKER) 2.3 mg/dL 1.6-2.6 Specimen slightly (test code = 627) hemolyzed BASIC METABOLIC [id number] 04:44:00 Test Item Value Reference Range Interpretation Comments SODIUM (BEAKER) 141 meq/L 136-145 (test code = 381) POTASSIUM (BEAKER) 4.0 meq/L 3.5-5.1 Specimen slightly (test code = 379) hemolyzed CHLORIDE (BEAKER) 109 meq/L 98-107 H (test code = 382) CO2 (BEAKER) (test 22 meq/L 22-29 code = 355) BLOOD UREA NITROGEN 24 mg/dL 7-21 H (BEAKER) (test code = 354) CREATININE (BEAKER) 1.61 mg/dL 0.57-1.25 H Specimen slightly (test code = 358) hemolyzed GLUCOSE RANDOM 98 mg/dL 70-105 (BEAKER) (test code = 652) CALCIUM (BEAKER) 9.3 mg/dL 8.4-10.2 (test code = 697) EGFR (BEAKER) (test 43 mL/min/1.73 ESTIMA KATIE GFR IS code = 1092) sq m NOT ACCURATE CREATININE CLEARANCE IN PREDICTING GLOMERULAR FILTRATION RATE . ESTIMATED GFR I S NOT APPLICABLE FOR DIALYSIS PATIEN TS. CBC (HEMOGRAM ONLY)2018-12-04 04:28:00 Test Item Value Reference Range Interpretation Comments WHITE BLOOD CELL COUNT (BEAKER) 7.6 K/ L 3.5-10.5 (test code = 775) RED BLOOD CELL COUNT (BEAKER) 3.88 M/ L 4.63-6.08 L (test code = 761) HEMOGLOBIN (BEAKER) (test code = 12.3 GM/DL 13.7-17.5 L 410) HEMATOCRIT (BEAKER) (test code = 37.6 % 40.1-51.0 L 411) MEAN CORPUSCULAR VOLUME (BEAKER) 96.9 fL 79.0-92.2 H (test code = 753) MEAN CORPUSCULAR HEMOGLOBIN 31.7 pg 25.7-32.2 (BEAKER) (test code = 751) MEAN CORPUSCULAR HEMOGLOBIN CONC 32.7 GM/DL 32.3-36.5 (BEAKER) (test code = 752) RED CELL DISTRIBUTION WIDTH 13.3 % 11.6-14.4 (BEAKER) (test code = 412) PLATELET COUNT (BEAKER) (test 158 K/CU MM 150-450 code = 756) MEAN PLATELET VOLUME (BEAKER) 11.6 fL 9.4-12.4 (test code = 754) NUCLEATED RED BLOOD CELLS 0 /100 WBC 0-0 (BEAKER) (test code = 413) PLATELET AGGREGATION: DRUG [id number] 19:31:00 Test Item Value Reference Range Interpretation Comments STRONG ADP 67 % 70-94 L RESULT(BEAKER) (test code = 2137) WEAK ADP RESULT(BEAKER) 65 % 60-91 (test code = 2135) ARACHADONIC ACID 5 % 63-89 L RESULT(BEAKER) (test code = 2138) PLATELET AGG DRUG Normal response to INTERPRETATION (BEAKER) ADP suggests a lack (test code = 8618) of H5G21-mvealbysh effect. PLATELET AGG DRUG Decreased response to INTERPRETATION (BEAKER) arachidonic acid (test code = 614182) suggests aspirin-like effect. [id number] Sandi Ovalle MD (BEAKER) (test code = (tyjvxlusvu 6031) signature) PLATELET COUNT AGG 163 K/CU MM 150-450 (BEAKER) (test code = 2656) Platelet aggregation results may be falsely low with platelet counts<100,000/CU MM.[id number] 12:53:00 Test Item Value Reference Range Interpretation Comments PARTIAL THROMBOPLASTIN TIME 69.0 seconds 22.5-36.0 H (BEAKER) (test code = 760) BASIC METABOLIC [id number] 07:03:00 Test Item Value Reference Range Interpretation Comments SODIUM (BEAKER) 140 meq/L 136-145 (test code = 381) POTASSIUM (BEAKER) 3.6 meq/L 3.5-5.1 Specimen slightly (test code = 379) hemolyzed CHLORIDE (BEAKER) 110 meq/L 98-107 H (test code = 382) CO2 (BEAKER) (test 21 meq/L 22-29 L code = 355) BLOOD UREA NITROGEN 31 mg/dL 7-21 H (BEAKER) (test code = 354) CREATININE (BEAKER) 1.54 mg/dL 0.57-1.25 H Specimen slightly (test code = 358) hemolyzed GLUCOSE RANDOM 90 mg/dL 70-105 (BEAKER) (test code = 652) CALCIUM (BEAKER) 8.2 mg/dL 8.4-10.2 L (test code = 697) EGFR (BEAKER) (test 45 mL/min/1.73 ESTIMA KATIE GFR IS code = 1092) sq m NOT ACCURATE CREATININE CLEARANCE IN PREDICTING GLOMERULAR FILTRATION RATE . ESTIMATED GFR I S NOT APPLICABLE FOR DIALYSIS PATIEN TS. [id number] 06:52:00 Test Item Value Reference Range Interpretation Comments PARTIAL THROMBOPLASTIN TIME 65.5 seconds 22.5-36.0 H (BEAKER) (test code = 760) CBC (HEMOGRAM ONLY)2018-12-03 06:39:00 Test Item Value Reference Range Interpretation Comments WHITE BLOOD CELL COUNT (BEAKER) 8.5 K/ L 3.5-10.5 (test code = 775) RED BLOOD CELL COUNT (BEAKER) 3.87 M/ L 4.63-6.08 L (test code = 761) HEMOGLOBIN (BEAKER) (test code = 12.1 GM/DL 13.7-17.5 L 410) HEMATOCRIT (BEAKER) (test code = 37.6 % 40.1-51.0 L 411) MEAN CORPUSCULAR VOLUME (BEAKER) 97.2 fL 79.0-92.2 H (test code = 753) MEAN CORPUSCULAR HEMOGLOBIN 31.3 pg 25.7-32.2 (BEAKER) (test code = 751) MEAN CORPUSCULAR HEMOGLOBIN CONC 32.2 GM/DL 32.3-36.5 L (BEAKER) (test code = 752) RED CELL DISTRIBUTION WIDTH 13.4 % 11.6-14.4 (BEAKER) (test code = 412) PLATELET COUNT (BEAKER) (test 176 K/CU MM 150-450 code = 756) MEAN PLATELET VOLUME (BEAKER) 12.2 fL 9.4-12.4 (test code = 754) NUCLEATED RED BLOOD CELLS 0 /100 WBC 0-0 (BEAKER) (test code = 413) [id number] 00:34:00 Test Item Value Reference Range Interpretation Comments PARTIAL THROMBOPLASTIN TIME 56.8 seconds 22.5-36.0 H (BEAKER) (test code = 760) [id number] 16:56:00 Test Item Value Reference Range Interpretation Comments PARTIAL THROMBOPLASTIN TIME 54.7 seconds 22.5-36.0 H (BEAKER) (test code = 760) B-TYPE NATRIURETIC FACTOR (BNP)2018-12-02 09:39:00 Test Item Value Reference Range Interpretation Comments B-TYPE NATRIURETIC PEPTIDE 1056 pg/mL 0-100 H (BEAKER) (test code = 700) [id number] 09:17:00 Test Item Value Reference Range Interpretation Comments PARTIAL THROMBOPLASTIN TIME 39.8 seconds 22.5-36.0 H (BEAKER) (test code = 760) TROPONIN [id number] 04:45:00 Test Item Value Reference Range Interpretation Comments TROPONIN I (BEAKER) (test code = 11.57 ng/mL 0.00-0.03 HH 397) Troponin I (TnI) levels must be interpreted [...] acute neurological disease, and persistent tachyarrhythmia.BASIC METABOLIC [id number] 04:29:00 Test Item Value Reference Range Interpretation Comments SODIUM (BEAKER) 138 meq/L 136-145 (test code = 381) POTASSIUM (BEAKER) 3.9 meq/L 3.5-5.1 Specimen slightly (test code = 379) hemolyzed CHLORIDE (BEAKER) 108 meq/L 98-107 H (test code = 382) CO2 (BEAKER) (test 18 meq/L 22-29 L code = 355) BLOOD UREA NITROGEN 39 mg/dL 7-21 H (BEAKER) (test code = 354) CREATININE (BEAKER) 1.90 mg/dL 0.57-1.25 H Specimen slightly (test code = 358) hemolyzed GLUCOSE RANDOM 85 mg/dL 70-105 (BEAKER) (test code = 652) CALCIUM (BEAKER) 9.0 mg/dL 8.4-10.2 (test code = 697) EGFR (BEAKER) (test 36 mL/min/1.73 ESTIMA KATIE GFR IS code = 1092) sq m NOT ACCURATE CREATININE CLEARANCE IN PREDICTING GLOMERULAR FILTRATION RATE . ESTIMATED GFR I S NOT APPLICABLE FOR DIALYSIS PATIEN TS. LIPID [id number] 04:29:00 Test Item Value Reference Range Interpretation Comments TRIGLYCERIDES (BEAKER) 137 mg/dL Speci men slightly (test code = 540) hemolyzed CHOLESTEROL (BEAKER) 174 mg/dL Specime n slightly (test code = 631) hemolyzed HDL CHOLESTEROL (BEAKER) 34 mg/dL (test code = 976) LDL CHOLESTEROL 113 mg/dL CALCULATED (BEAKER) (test code = 633) Triglyceride Reference Range: Low Risk <150 Borderline 150-199 High Risk 200-499 Very High Risk >=500Cholesterol Reference Range: Low Risk <200 Borderline 200-239 High Risk >240HDL Cholesterol Reference Range: Low Risk >=60 High Risk <40LDL Cholesterol Reference Range: Optimal <100 Near Optimal 100-129 Borderline 130-159 High 160-189 Very High >=190CBC (HEMOGRAM ONLY)2018-12-02 02:47:00 Test Item Value Reference Range Interpretation Comments WHITE BLOOD CELL COUNT (BEAKER) 11.4 K/ L 3.5-10.5 H (test code = 775) RED BLOOD CELL COUNT (BEAKER) 4.04 M/ L 4.63-6.08 L (test code = 761) HEMOGLOBIN (BEAKER) (test code = 12.6 GM/DL 13.7-17.5 L 410) HEMATOCRIT (BEAKER) (test code = 38.7 % 40.1-51.0 L 411) MEAN CORPUSCULAR VOLUME (BEAKER) 95.8 fL 79.0-92.2 H (test code = 753) MEAN CORPUSCULAR HEMOGLOBIN 31.2 pg 25.7-32.2 (BEAKER) (test code = 751) MEAN CORPUSCULAR HEMOGLOBIN CONC 32.6 GM/DL 32.3-36.5 (BEAKER) (test code = 752) RED CELL DISTRIBUTION WIDTH 13.6 % 11.6-14.4 (BEAKER) (test code = 412) PLATELET COUNT (BEAKER) (test 178 K/CU MM 150-450 code = 756) MEAN PLATELET VOLUME (BEAKER) 11.8 fL 9.4-12.4 (test code = 754) NUCLEATED RED BLOOD CELLS 0 /100 WBC 0-0 (BEAKER) (test code = 413) [id number] 18:55:00 Test Item Value Reference Range Interpretation Comments ACTIVATED CLOTTING TIME [address] ED [address] [facility] 6720 (BEAKER) (test code = JAMISON Fontanez [facility] 441) [address] COMPREHENSIVE METABOLIC [id number] 18:40:00 Test Item Value Reference Range Interpretation Comments TOTAL PROTEIN 6.7 gm/dL 6.0-8.3 (BEAKER) (test code = 770) ALBUMIN (BEAKER) 3.4 g/dL 3.5-5.0 L (test code = 1145) ALKALINE PHOSPHATASE 59 U/L 40-150 (BEAKER) (test code = 346) BILIRUBIN TOTAL 1.1 mg/dL 0.2-1.2 (BEAKER) (test code = 377) SODIUM (BEAKER) (test 141 meq/L 136-145 code = 381) POTASSIUM (BEAKER) 3.6 meq/L 3.5-5.1 (test code = 379) CHLORIDE (BEAKER) 105 meq/L 98-107 (test code = 382) CO2 (BEAKER) (test 26 meq/L 22-29 code = 355) BLOOD UREA NITROGEN 40 mg/dL 7-21 H (BEAKER) (test code = 354) CREATININE (BEAKER) 2.18 mg/dL 0.57-1.25 H (test code = 358) GLUCOSE RANDOM 92 mg/dL 70-105 (BEAKER) (test code = 652) CALCIUM (BEAKER) 9.3 mg/dL 8.4-10.2 (test code = 697) AST (SGOT) (BEAKER) 16 U/L 5-34 (test code = 353) ALT (SGPT) (BEAKER) 11 U/L 6-55 (test code = 347) EGFR (BEAKER) (test 30 mL/min/1.73 ESTIMA KATIE GFR IS code = 1092) sq m NOT ACCURATE CREATININE CLEARANCE IN PREDICTING GLOMERULAR FILTRATION RATE . ESTIMATED GFR I S NOT APPLICABLE FOR DIALYSIS PATIEN TS. [id number] 18:31:00 Test Item Value Reference Range Interpretation Comments PROTIME (BEAKER) (test code = 14.6 seconds 11.7-14.7 759) INR (BEAKER) (test code = 370) 1.1 <=5.9 PARTIAL THROMBOPLASTIN TIME 38.0 seconds 22.5-36.0 H (BEAKER) (test code = 760) RECOMMENDED COUMADIN/WARFARIN INR THERAPY RANGESSTANDARD DOSE: 2.0 - 3.0 Includes: PROPHYLAXIS forvenous thrombosis, systemic embolization; TREATMENT for venous thrombosis and/or pulmonary embolus.HIGH RISK: Target INR is 2.5-3.5 for patients with mechanical heart valves.PROTHROMBIN [id number] 18:30:00 Test Item Value Reference Range Interpretation Comments PROTIME (BEAKER) (test code = 14.6 seconds 11.7-14.7 759) INR (BEAKER) (test code = 370) 1.1 <=5.9 RECOMMENDED COUMADIN/WARFARIN INR THERAPY RANGESSTANDARD DOSE: 2.0 - 3.0 Includes: PROPHYLAXIS forvenous thrombosis, systemic embolization; TREATMENT for venous thrombosis and/or pulmonary embolus.HIGH RISK: Target INR is 2.5-3.5 for patients with mechanical heart valves.CBC W/PLT COUNT & AUTO DIFFERENTIAL 2018-12-01 18:27:00 Test Item Value Reference Range Interpretation Comments WHITE BLOOD CELL COUNT (BEAKER) 13.1 K/ L 3.5-10.5 H (test code = 775) RED BLOOD CELL COUNT (BEAKER) 3.93 M/ L 4.63-6.08 L (test code = 761) HEMOGLOBIN (BEAKER) (test code = 12.4 GM/DL 13.7-17.5 L 410) HEMATOCRIT (BEAKER) (test code = 37.3 % 40.1-51.0 L 411) MEAN CORPUSCULAR VOLUME (BEAKER) 94.9 fL 79.0-92.2 H (test code = 753) MEAN CORPUSCULAR HEMOGLOBIN 31.6 pg 25.7-32.2 (BEAKER) (test code = 751) MEAN CORPUSCULAR HEMOGLOBIN CONC 33.2 GM/DL 32.3-36.5 (BEAKER) (test code = 752) RED CELL DISTRIBUTION WIDTH 13.6 % 11.6-14.4 (BEAKER) (test code = 412) PLATELET COUNT (BEAKER) (test 184 K/CU MM 150-450 code = 756) MEAN PLATELET VOLUME (BEAKER) 11.6 fL 9.4-12.4 (test code = 754) NUCLEATED RED BLOOD CELLS 0 /100 WBC 0-0 (BEAKER) (test code = 413) NEUTROPHILS RELATIVE PERCENT 71 % (BEAKER) (test code = 429) LYMPHOCYTES RELATIVE PERCENT 19 % (BEAKER) (test code = 430) MONOCYTES RELATIVE PERCENT 9 % (BEAKER) (test code = 431) EOSINOPHILS RELATIVE PERCENT 0 % (BEAKER) (test code = 432) BASOPHILS RELATIVE PERCENT 0 % (BEAKER) (test code = 437) NEUTROPHILS ABSOLUTE COUNT 9.31 K/ L 1.78-5.38 H (BEAKER) (test code = 670) LYMPHOCYTES ABSOLUTE COUNT 2.53 K/ L 1.32-3.57 (BEAKER) (test code = 414) MONOCYTES ABSOLUTE COUNT (BEAKER) 1.12 K/ L 0.30-0.82 H (test code = 415) EOSINOPHILS ABSOLUTE COUNT 0.04 K/ L 0.04-0.54 ([facility]) (test code = 416) BASOPHILS ABSOLUTE COUNT ([facility]) 0.04 K/ L 0.01-0.08 (test code = 417) IMMATURE GRANULOCYTES-RELATIVE 1 % 0-1 PERCENT ([facility]) (test code = 2801) [id number] 18:07:00 Test Item Value Reference Range Interpretation Comments ACTIVATED CLOTTING TIME 136 [address] ED [address] [facility] 6720 ([facility]) (test code = [facility]ALLEG[facility]) [id number]
[2020-05-01 17:14] LABS: Absolute Lymphocytes (CBC) 1.5 K/uL (0.7-4.9); Basophils % 1.4 % (0-1.3); Hematocrit 39.1 % (39.6-49.0); Lymphocytes % 22.3 % (15.3-44.8); MPV 9.8 fL (7.6-11.3); Protime INR 1.12; RBC Red Blood Cell Count 4.17 M/uL (4.33-5.43)
[2020-05-01] MEDS ORDERED: NA CHLORIDE 0.9% 1,000 ML ONE ×2 (17:19→18:20)
[2020-05-01 17:31] LABS: ALT/SGPT 18 U/L (12-78); AST/SGOT 9 U/L (15-37); Albumin 3.3 g/dL (3.4-5.0); Alkaline Phosphatase 81 U/L (45-117); BUN Blood Urea Nitrogen 24 mg/dL (7-18); Bicarbonate 26 mmol/L (21-32); Bilirubin Direct 0.2 mg/dL (0-0.2); Bilirubin Total 0.7 mg/dL (0.2-1.0); Glucose Level 99 mg/dL (74-106); Lipase 62 U/L (73-393); Magnesium 2.3 mg/dL (1.8-2.4); NT PRO-BNP 309 pg/mL (<125); Potassium 3.8 mmol/L (3.5-5.1); Protein, Total 7.5 g/dL (6.4-8.2); Sodium Level 143 mmol/L (136-145); Troponin (Emerg Dept Use Only) < 0.02 ng/mL (0.0-0.045)
--- NOTE | 2020-05-01 17:46 | RAD REPORT ---
EXAM DESCRIPTION: CT - Head Brain Wo Cont - 05/01/2020 5:25 pm CLINICAL HISTORY: [facility]NCOPE COMPARISON: Head Brain Wo Cont dated 07/26/2019 TECHNIQUE: Axial 5 mm thick images of the head were obtained without IV contrast. All CT scans are performed using dose optimization technique as appropriate and may include automated exposure control or mA/KV adjustment according to patient size. FINDINGS: No intracranial hemorrhage, mass, edema or shift of mid-line structures. No acute cortical based infarction. No cortical edema sulcal effacement. Moderate severity atrophy changes are present . Ventricles are in proportion. No abnormal extra-axial fluid collections. Moderate severity chronic ischemic changes are present. Dense arterial calcifications present. Intracranial findings are simila r to comparison. Mastoid air cells and visualized portions of the paranasal sinuses are clear. No acute bony findings. IMPRESSION: No acute intracranial finding. Moderate severity atrophy and chronic ischemic change similar to comparison.
--- NOTE | 2020-05-01 17:46 | RAD REPORT ---
EXAM DESCRIPTION: RAD - Chest Single View - 05/01/2020 5:15 pm CLINICAL HISTORY: COUGH COMPARISON: Portable November 2019 TECHNIQUE: AP portable chest image was obtained 05/01/2020 5:15 pm . FINDINGS: Lungs are clear. Interstitial pattern matches comparison. Sternotomy wires are in place. H eart and vasculature are normal. No measurable pleural effusion and no pneumothorax. No acute bony ab normality seen. No acute aortic findings suspected. IMPRESSION: No acute cardiopulmonary process.
--- NOTE | 2020-05-01 19:11 | ER ---
Nurse's Notes [facility] Name: Jason Johnson Age: 70 yrs Sex: Male : 1950 Arrival Date: 05/01/2020 Time: 16:35 Bed 13 [facility] MD: Diagnosis: Vomiting;Syncope and collapse-near;Volume depletion;Unspecified kidney failure-insufficency Presentation: 05/01 16:35 Chief complaint: EMS states: Syncopal episode while out to eat. Coronavirus screen: jl7 Client denies travel out of the [place] in the last 14 days. At this time, the client does not indicate any symptoms associated with coronavirus-19. Ebola Screen: No symptoms or risks identified at this time. Initial Sepsis Screen: Does the patient meet any 2 criteria? No. Patient's initial sepsis screen is negative. Does the patient have a suspected source of infection? No. Patient's initial sepsis screen is negative. Risk Assessment: Do you want to hurt yourself or someone else? Patient reports no desire to harm self or others. Onset of symptoms was May 01, 2020 at 16:00. Care prior to arrival: Medication(s) given: Normal saline infusion, 500 mL, zofran 4 mg, IV initiated. 20 GA, in the right antecubital area. Transition of care: patient was not received from another setting of care. 16:35 Method Of Arrival: EMS: [place] [id number] 16:35 Acuity: NINA 2 jl7 Historical: - Allergies: 16:39 No Known Allergies; jl7 - Home Meds: 16:39 clopidogrel oral oral [Active]; Omeprazole Oral [Active]; carvedilol oral oral [Active];jl7 - PMHx: 16:39 constipation; Hypertension; CVA; jl7 - PSHx: 16:39 CABG; jl7 - Immunization history:: Adult Immunizations. - Social history:: Smoking status: Patient denies any tobacco usage or history of. - Family history:: not pertinent. Screenin:58 Abuse screen: Denies threats or abuse. Nutritional screening: No deficits noted. jd3 Tuberculosis screening: No symptoms or risk factors identified. Fall Risk Ambulatory Aid- None/Bed Rest/Nurse Assist (0 pts). Gait- Normal/Bed Rest/Wheelchair (0 pts) Mental Status- Oriented to own ability (0 pts). Total Aguirre Fall Scale indicates No Risk (0-24 pts). Assessment: 16:55 General: Appears in no apparent distress. comfortable, Behavior is calm, cooperative, jd3 appropriate for age. Pain: Denies pain. Neuro: Level of Consciousness is awake, alert, obeys commands, Oriented to person, place, time, situation, Reports syncope prior to arrival. Cardiovascular: Denies chest pain, Heart tones S1 S2 present Capillary refill < 3 seconds Patient's skin is warm and dry. Rhythm is regular. Respiratory: Airway is patent Respiratory effort is even, unlabored, Respiratory pattern is regular, symmetrical, Breath sounds are clear bilaterally. Denies cough, shortness of breath. GI: Abdomen is round non-distended, Abd is soft and non tender X 4 quads. Reports vomiting prior to arrival. no report of nausea or vomiting at this time. : No signs and/or symptoms were reported regarding the genitourinary system. EENT: No signs and/or symptoms were reported regarding the EENT system. Derm: Skin is intact, Skin is dry, Skin is normal, Skin temperature is warm. Musculoskeletal: Circulation, motion, and sensation intact. Range of motion: intact in all extremities. 18:45 Reassessment: Pt given cup of water for PO challenge per MD, pt tolerated well.. aa5 19:20 Reassessment: Patient appears in no apparent distress at this time. Patient is alert, rr5 oriented x 3, equal unlabored respirations, skin warm/dry/pink. reassessment done by ED provider with order made for discharge. discharge instruction given and explained without complaints made. Patient states symptoms have improved. Vital Signs: 16:35 BP 120 / 85; Pulse 51; Resp 19; Pulse Ox 100% ; Weight 81.65 kg; Height 6 ft. 2 in. jl7 (187.96 cm); Pain 0/10; 17:58 BP 121 / 81; Pulse 54; Resp 18 S; Pulse Ox 100% on R/A; jd3 19:10 BP 119 / 76 Supine; Pulse 55; Resp 17; Pulse Ox 100% ; rr5 19:13 BP 113 / 84 Sitting; Pulse 55; Resp 15; Pulse Ox 98% on R/A; rr5 19:15 BP 108 / 62; Pulse 52; Resp 18; Pulse Ox 99% ; rr5 16:35 Body Mass Index 23.11 (81.65 kg, 187.96 cm) jl7 ED Course: 16:35 Patient arrived in ED. jl7 16:36 Felipe Gonzalez MD is Attending Physician. denys 16:37 Triage completed. jl7 16:39 Arm band placed on right wrist. jl7 16:55 Mirza Samson, RN is Primary Nurse. jd3 17:05 EKG done, by ED staff, reviewed by Felipe Gonzalez MD. jb1 17:15 XRAY Chest (1 view) In Process Unspecified. EDMS 17:25 CT Head Brain wo Cont In Process Unspecified. EDMS 17:45 IV was discontinued by the patient. jd3 17:45 Missed attempt(s): 20 gauge in left wrist. Bleeding controlled, band aid applied, jd3 catheter tip intact. Missed attempt(s): 20 gauge in left antecubital area. Bleeding controlled, band aid applied, catheter tip intact. 17:58 Patient has correct armband on for positive identification. Placed in gown. Bed in low jd3 position. Call light in reach. Side rails up X2. secured entrance monitor on. Pulse ox on. NIBP on. 18:13 Inserted saline lock: 20 gauge in right wrist, using aseptic technique. placed by Nataliya serrano RN. 19:30 No provider procedures requiring assistance completed. IV discontinued, intact, rr5 bleeding controlled, No redness/swelling at site. Pressure dressing applied. Administered Medications: 17:15 Drug: NS 0.9% 1000 ml Route: IV; Rate: 125 ml/hr; Site: right antecubital; jd3 18:13 Follow up: IV SiteChange: right wrist; IV SiteChange Reason: Patient removed jd3 19:30 Follow up: Response: No adverse reaction; IV Status: Order to discontinue infusion; IV rr5 Intake: 250ml 18:04 Not Given (Duplicate Order): NS 0.9% 500 ml IV at bolus once denys 18:12 Drug: NS 0.9% 1000 ml Route: IV; Rate: 1 bolus; Site: right wrist; jd3 19:30 Follow up: Response: No adverse reaction; IV Status: Completed infusion; IV Intake: rr5 1000ml Intake: 19:30 IV: 1000ml; Total: 1000ml. rr5 19:30 IV: 250ml; Total: 1250ml. rr5 Outcome: 19:11 Discharge ordered by . denys 19:30 Discharged to home via wheelchair. rr5 19:30 Condition: stable 19:30 Discharge instructions given to patient, Instructed on discharge instructions, follow up and referral plans. medication usage, Demonstrated understanding of instructions, follow-up care, medications, Prescriptions given X 1. 19:45 Patient left the ED. rr5 Signatures: Dispatcher [employer] EDMS Mynor Clakr jb1 Felipe Gonzalez MD MD cha Calderon, Audri, RN RN aa5 Laura Carroll RN RN jl7 Mirza Samson RN RN jd3 Alexei Brewer RN RN rr5 Corrections: (The following items were deleted from the chart) 18:13 18:12 IV SiteChange: right forearm; IV SiteChange Reason: Patient removed jd3 jd3
--- NOTE | 2020-05-01 19:11 | EDPHYS ---
Physician Documentation [facility] Name: Jason Johnson Age: 70 yrs Sex: Male : 1950 Arrival Date: 05/01/2020 Time: 16:35 Bed 13 Private MD: ED Physician Felipe Gonzalez HPI: 05/01 17:05 This 70 yrs old Male presents to ER via EMS with complaints of Syncope. denys 17:05 The patient has experienced near-syncope, almost passed out. Onset: The denys symptoms/episode began/occurred just prior to arrival. Duration: This was a single episode, that lasted 30 second(s). Context: the episode(s) was witnessed, by family. Associated injury: The patient did not suffer any apparent associated injury. Associated signs and symptoms: Pertinent positives: nausea, vomiting. Current symptoms: Currently, the patient is not experiencing any symptoms, the patient feels back to baseline. The patient has not experienced similar symptoms in the past. Historical: - Allergies: 16:39 No Known Allergies; jl7 - Home Meds: 16:39 clopidogrel oral oral [Active]; Omeprazole Oral [Active]; carvedilol oral oral [Active];jl7 - PMHx: 16:39 constipation; Hypertension; CVA; jl7 - PSHx: 16:39 CABG; jl7 - Immunization history:: Adult Immunizations. - Social history:: Smoking status: Patient denies any tobacco usage or history of. - Family history:: not pertinent. ROS: 17:05 Constitutional: Negative for fever, chills, and weight loss, Eyes: Negative for injury, denys pain, redness, and discharge, ENT: Negative for injury, pain, and discharge, Neck: Negative for injury, pain, and swelling, Cardiovascular: Negative for chest pain, palpitations, and edema, Respiratory: Negative for shortness of breath, cough, wheezing, and pleuritic chest pain, Back: Negative for injury and pain, : Negative for injury, bleeding, discharge, and swelling, MS/Extremity: Negative for injury and deformity, Skin: Negative for injury, rash, and discoloration, Psych: Negative for depression, anxiety, suicide ideation, homicidal ideation, and hallucinations, Allergy/Immunology: Negative for hives, rash, and allergies, Endocrine: Negative for neck swelling, polydipsia, polyuria, polyphagia, and marked weight changes, Hematologic/Lymphatic: Negative for swollen nodes, abnormal bleeding, and unusual bruising. 17:05 Abdomen/GI: Positive for nausea and vomiting. 17:05 Skin: Positive for pallor. 17:05 Neuro: Positive for near syncope, weakness. Exam: 17:05 Constitutional: This is a well developed, well nourished patient who is awake, alert, denys and in no acute distress. Head/Face: Normocephalic, atraumatic. Eyes: Pupils equal round and reactive to light, extra-ocular motions intact. Lids and lashes normal. Conjunctiva and sclera are non-icteric and not injected. Cornea within normal limits. Periorbital areas with no swelling, redness, or edema. ENT: Nares patent. No nasal discharge, no septal abnormalities noted. Tympanic membranes are normal and external auditory canals are clear. Oropharynx with no redness, swelling, or masses, exudates, or evidence of obstruction, uvula midline. Mucous membranes moist. Neck: Trachea midline, no thyromegaly or masses palpated, and no cervical lymphadenopathy. Supple, full range of motion without nuchal rigidity, or vertebral point tenderness. No Meningismus. Chest/axilla: Normal chest wall appearance and motion. Nontender with no deformity. No lesions are appreciated. Cardiovascular: Regular rate and rhythm with a normal S1 and S2. No gallops, murmurs, or rubs. Normal PMI, no JVD. No pulse deficits. Respiratory: Lungs have equal breath sounds bilaterally, clear to auscultation and percussion. No rales, rhonchi or wheezes noted. No increased work of breathing, no retractions or nasal flaring. Abdomen/GI: Soft, non-tender, with normal bowel sounds. No distension or tympany. No guarding or rebound. No evidence of tenderness throughout. Back: No spinal tenderness. No costovertebral tenderness. Full range of motion. Skin: Warm, dry with normal turgor. Normal color with no rashes, no lesions, and no evidence of cellulitis. MS/ Extremity: Pulses equal, no cyanosis. Neurovascular intact. Full, normal range of motion. Neuro: Awake and alert, GCS 15, oriented to person, place, time, and situation. Cranial nerves II-XII grossly intact. Motor strength 5/5 in all extremities. Sensory grossly intact. Cerebellar exam normal. Normal gait. Psych: Awake, alert, with orientation to person, place and time. Behavior, mood, and affect are within normal limits. 17:05 Abdomen/GI: Inspection: abdomen appears normal, Bowel sounds: normal, Palpation: abdomen is soft and non-tender, Liver: no appreciated palpable abnormalities, Hernia: not appreciated. 17:05 Skin: Appearance: Color: normal in color, Temperature: normal temperature, Moisture: normal moisture, petechiae, not noted, ecchymosis, not noted, abscess, not appreciated, cellulitis, is not appreciated, injury, is not appreciated. 17:10 ECG was reviewed by the Attending Physician. denys 17:20 Abdomen/GI: Rectal exam: is unremarkable, Prostate: normal, rectal tone normal, Stool: denys guaiac negative, hemorrhoid(s), external, mass, is not appreciated, swelling, is not appreciated, tenderness, is not appreciated, fecal impaction, is not appreciated, the exam is chaperoned by the nurse. Vital Signs: 16:35 BP 120 / 85; Pulse 51; Resp 19; Pulse Ox 100% ; Weight 81.65 kg; Height 6 ft. 2 in. jl7 (187.96 cm); Pain 0/10; 17:58 BP 121 / 81; Pulse 54; Resp 18 S; Pulse Ox 100% on R/A; jd3 19:10 BP 119 / 76 Supine; Pulse 55; Resp 17; Pulse Ox 100% ; rr5 19:13 BP 113 / 84 Sitting; Pulse 55; Resp 15; Pulse Ox 98% on R/A; rr5 19:15 BP 108 / 62; Pulse 52; Resp 18; Pulse Ox 99% ; rr5 16:35 Body Mass Index 23.11 (81.65 kg, 187.96 cm) jl7 MDM: 16:36 Patient medically screened. denys 17:08 Differential Diagnosis: cerebrovascular accident, GI bleed, vasovagal episode. Data [facility] reviewed: vital signs, nurses notes, EMS record, lab test result(s), EKG, radiologic studies, CT scan, plain films. Data interpreted: monitor worker: rate is 51 beats/min, rhythm is regular. Test interpretation: by ED physician or midlevel provider: ECG, plain radiologic studies. Counseling: I had a detailed discussion with the patient and/or guardian regarding: the historical points, exam findings, and any diagnostic results supporting the discharge/admit diagnosis, lab results, radiology results. 17:51 ED course: all labs and studies reviewed, pt at his baseline, improved, will limit [facility] activity, follow up with pcp, fall percautions given. 05/01 16:38 Order name: Basic Metabolic Panel; Complete Time: 17:31 [facility] 05/01 16:38 Order name: CBC with Diff; Complete Time: 17:31 [facility] 05/01 16:38 Order name: LFT's; Complete Time: 17:31 [facility] 05/01 16:38 Order name: Magnesium; Complete Time: 17:31 [facility] 05/01 16:38 Order name: NT PRO-BNP; Complete Time: 17:31 [facility] 05/01 16:38 Order name: PT-INR; Complete Time: 17:31 [facility] 05/01 16:38 Order name: Troponin (emerg Dept Use Only); Complete Time: 17:31 [facility] 05/01 16:38 Order name: XRAY Chest (1 view); Complete Time: 17:49 [facility] 05/01 16:38 Order name: Lipase; Complete Time: 17:31 [facility] 05/01 16:38 Order name: CT Head Brain wo Cont; Complete Time: 17:49 [facility] 05/01 19:13 Order name: Urine Dipstick--Ancillary (enter results) [facility] 05/01 16:38 Order name: EKG; Complete Time: 16:39 [facility] 05/01 16:38 Order name: Cardiac monitoring; Complete Time: 16:55 [facility] 05/01 16:38 Order name: EKG - Nurse/Tech; Complete Time: 17:05 [facility] 05/01 16:38 Order name: IV Saline Lock; Complete Time: 16:55 [facility] 05/01 16:38 Order name: Labs collected and sent; Complete Time: 17:07 [facility] 05/01 16:38 Order name: O2 Per Protocol; Complete Time: 16:55 [facility] 05/01 16:38 Order name: O2 Sat Monitoring; Complete Time: 16:55 [facility] 05/01 16:38 Order name: Urine Dipstick-Ancillary (obtain specimen); Complete Time: 19:11 [facility] 05/01 17:32 Order name: Orthostatics; Complete Time: 18:08 [facility] 05/01 18:39 Order name: PO challenge; Complete Time: 18:45 denys EC:10 Rate is 51 beats/min. Rhythm is regular. QRS [place] is Normal. [place] interval is normal. QRS denys interval is normal. QT interval is normal. No Q waves. T waves are Normal. Clinical impression: NSR w/ Non-specific ST/T Changes. Interpreted by me. Reviewed by me. Administered Medications: 17:15 Drug: NS 0.9% 1000 ml Route: IV; Rate: 125 ml/hr; Site: right antecubital; jd3 18:13 Follow up: IV SiteChange: right wrist; IV SiteChange Reason: Patient removed jd3 19:30 Follow up: Response: No adverse reaction; IV Status: Order to discontinue infusion; IV rr5 Intake: 250ml 18:04 Not Given (Duplicate Order): NS 0.9% 500 ml IV at bolus once denys 18:12 Drug: NS 0.9% 1000 ml Route: IV; Rate: 1 bolus; Site: right wrist; jd3 19:30 Follow up: Response: No adverse reaction; IV Status: Completed infusion; IV Intake: rr5 1000ml Disposition: 05/01/20 19:11 Discharged to Home. Impression: Vomiting, Syncope and collapse - near, Volume depletion, Unspecified kidney failure - insufficency. - Condition is Stable. - Discharge Instructions: Nausea and Vomiting, Adult, Near-Syncope, Weakness, Nausea and Vomiting, Adult, Sxid-[id number], Near-Syncope, [id number], Chronic Kidney Disease, Adult, Imme-nc-Yoyd, Vasovagal Syncope, Adult. - Prescriptions for Zofran 4 mg Oral Tablet - take 1 tablet by ORAL route every 12 hours As needed; 14 tablet. - Medication Reconciliation Form, Thank You Letter, Antibiotic Education, Prescription Opioid Use form. - Follow up: Private Physician; When: 2 - 3 days; Reason: Recheck today's complaints, Continuance of care, Re-evaluation by your physician. - Problem is new. - Symptoms have improved. Signatures: Dispatcher [employer] EDMS Felipe Gonzalez MD MD cha Leal, Jahala, RN RN jl7 Mirza Samson RN RN jd3 Alexei Brewer RN RN rr5 Corrections: (The following items were deleted from the chart) 19:45 19:11 05/01/2020 19:11 Discharged to Home. Impression: Vomiting; Syncope and collapse - rr5 near; Volume depletion; Unspecified kidney failure - insufficency. Condition is Stable. Discharge Instructions: Nausea and Vomiting, Adult, Near-Syncope, Weakness, Nausea and Vomiting, Adult, Olpd-nr-Mzfs, Near-Syncope, Ekpz-zl-Ihth, Vasovagal Syncope, Adult. Prescriptions for Zofran 4 mg Oral Tablet - take 1 tablet by ORAL route every 12 hours As needed; 14 tablet. and Forms are Medication Reconciliation Form, Thank You Letter, Antibiotic Education, Prescription Opioid Use. Follow up: Private Physician; When: 2 - 3 days; Reason: Recheck today's complaints, Continuance of care, Re-evaluation by your physician. Problem is new. Symptoms have improved. denys
[2020-05-01 19:37] LABS: Urine Blood NEGATIVE (NEG); Urine Glucose NEGATIVE (NEG); Urine Protein NEGATIVE (NEG); Urine Specific Gravity 1.025 (1.005-1.030)
== END 2020-05-01 19:45 | disposition home or self-care (01) ==
LOC: ER 16:25
DX: E86.9 Volume depletion, unspecified (principal); R11.10 Vomiting, unspecified; N28.9 Disorder of kidney and ureter, unspecified; I10 Essential (primary) hypertension; Z86.73 Personal history of transient ischemic attack (TIA), and cerebral infarction without residual deficits; Z95.1 Presence of aortocoronary bypass graft
CPT/HCPCS: 96361; 93005; 85025; 80048; 36415; 83735; 85610; 80076; 81003; 84484; 83690; 83880; 70450; 71045; 96360; 99285; J7030 ×2

== ENCOUNTER 2020-07-31 13:34 | Observation (INO) | payer OTHER ==
--- OUTSIDE RECORDS SUMMARY | 2020-07-31 13:36 | XMS REPORT | Clinical Summary ---
:1950 Author Organization [facility] Address [address] [place] [address] Care Team Providers Name Role Phone Jona Stephens MD Primary Care Provider [phone] Allergies No Known Allergies Medications Medication Sig [...] Assigned at Date Recorded Not on file Last Filed Vital Signs Not on file Plan of Treatment Health Maintenance Due Date Last Done Comments COLON CANCER SCREENING COLONOSCOPY 1950 MEDICARE ANNUAL WELLNESS (YEAR 2 or FIRST YEAR if no 02/08/2017 IPPE) INFLUENZA VACCINE (#1) 2020 PNEUMOCOCCAL 65+ YRS Completed 04/19/2018 Implants Implanted Type Area [employer] Foreman Device Shelf Model / Identifier Expiration Serial / Date Lot Sternal Zipfix Ndl Strl .[id number] - [id number] Cardiovascula r N/A: SYNTHES:SYNTHES 06/08/[id number] / Implanted: Qty: 1 on 12/05/2018 by Joanna Orellana MD at [facility] [employer] / [id number] Results Not on fileafter 07/31/2019 Advance Directives For more information, please contact: [phone] Code Status Date Activated Date Inactivated Comments [...]
--- OUTSIDE RECORDS SUMMARY | 2020-07-31 13:38 | XMS REPORT | Continuity of Care Document ---
:1950 Author Organization [facility] t Address [address] [place] [address] Care Team Providers Name Role Phone Brian Stephens MD Primary Care Physician EDWINA FRANKLIN Attending Clinician Unavailable EDWINA FRANKLIN Admitting Clinician Unavailable Problems Condition Condition Condition Status Onset Resolution Last Treating Co mments Source Name Details Category Date Date Treatment Clinician Date Complete Complete Disease [facility] NSTEMI NSTEMI Disease Active [facility] - elevated elevated 00:00: Medica l [...] Binge Medical Koki ter Sex Assigned At [facility] Tobacco use and 2018-12-08 2018-12-[address] [facility] - [facility]00 [facility] Alcohol intake 2018-12-08 2018-12-[address] [facility] - 00:00:00 00:00:00 non-drinker of Medical Ce nter alcohol (finding) History SDOH 2018-12-01 2018-12-[address] [...] QD Take [address] [facility] MG EC 4-02 10-05 tablet (81 [facility] - tablet 00:00: 23:59 mg total) Medic al 00 :00 by mouth Center daily. metoprolol 2019- No 50mg QD Take [address] [facility] [address] (TOPROL-XL) 4-02 10-05 tablet (50 [facility] - 50 MG 24 hr 00:00: 23:59 mg total) Medical tablet 00 :00 by mouth Center daily. amLODIPine 2019- No 10mg QD Take [address] [facility] [address] (NORVASC) 4-06 04-05 tablet (10 [facility] - 10 MG 00:00: 23:59 mg total) Medica l tablet 00 :00 by mouth Center daily. atorvastati 2019- No 40mg QD Take [address] [facility] [address] n (LIPITOR) 4- 04-04 tablet (40 L u[facility] - 40 MG 00:00: 23:59 mg total) Medica l tablet 00 :00 by mouth Center nightly. senna-docus 2020- No 1{tbl} QD Take [address] ate 4-05 04-04 tablet by [facility] - (SENOKOT S) 00:00: 23:59 mouth Medi william 8.6-50 mg 00 :00 nightly. Center per tablet Procedures This patient has no known procedures. Plan of Care Planned Activity Planned Date Details Comments Source Future Scheduled 2020-05-[address] [facility] - Test 00:00:00 (#1) [code = Medical Center INFLUENZA VACCINE (#1)] Future Scheduled 2017-02-[address] [facility] - Test 00:00:00 WELLNESS (YEAR 2 or Medical Center FIRST YEAR if no IPPE) [code = MEDICARE ANNUAL WELLNESS (YEAR 2 or FIRST YEAR if no IPPE)] Future Scheduled [address] [facility] - Test 00:00:00 malignant neoplasm Medical C enter of colon (procedure) [code = 099473100] Results Test Description Test Time Test Comments [...] 1 /HPF SOURCE(BEAKER) (test code = 2795) [id number] 05:39:00 Test Item Value Reference Range Interpretation Comments PHOSPHORUS (BEAKER) (test code = 2.8 mg/dL 2.3-4.7 604) CBC W/PLT COUNT & AUTO [id number] 05:18:00 Test Item Value Reference Range Interpretation [...] (BEAKER) (test code = 2801) U/S, RENAL, [id number] 02:06:00Reason for exam:->ckdShould this be performed at [...] MDReport Verified Date/Time: 12/12/2018 02:06:07 Reading Location: [address] Body Reading Room [id number] 05:23:00 Test Item Value Reference Range Interpretation Comments PHOSPHORUS (BEAKER) (test code = 2.7 mg/dL 2.3-4.7 604) [id number] 05:23:00 Test Item Value Reference Range Interpretation Comments MAGNESIUM (BEAKER) (test code = 2.1 mg/dL 1.6-2.6 627) BASIC METABOLIC [id number] 05:23:00 Test Item Value Reference Range Interpretation [...] PATIEN TS. CBC W/PLT COUNT & AUTO [id number] 05:00:00 Test Item Value Reference Range Interpretation [...] H PERCENT (BEAKER) (test code = 2801) [id number] 05:42:00 Test Item Value Reference Range Interpretation Comments PHOSPHORUS (BEAKER) (test code = 2.9 mg/dL 2.3-4.7 604) [id number] 05:42:00 Test Item Value Reference Range Interpretation Comments MAGNESIUM (BEAKER) (test code = 2.0 mg/dL 1.6-2.6 627) BASIC METABOLIC [id number] 05:42:00 Test Item Value Reference Range Interpretation [...] PATIEN TS. CBC W/PLT COUNT & AUTO [id number] 05:18:00 Test Item Value Reference Range Interpretation [...] = 2801) RAD, CHEST, 1 VIEW, NON [id number] 10:12:00Reason for exam:->post operative cardiacShould this be [...] 12/09/201810:12:03 Reading Location: [facility] Radiology Reading Room CBC W/PLT COUNT & AUTO [id number] 07:16:00 Test Item Value Reference Range Interpretation [...] 0-1 PERCENT (BEAKER) (test code = 2801) [id number] 07:10:00 Test Item Value Reference Range Interpretation Comments PHOSPHORUS (BEAKER) (test code = 2.5 mg/dL 2.3-4.7 604) [id number] 07:10:00 Test Item Value Reference Range Interpretation Comments MAGNESIUM (BEAKER) (test code = 2.1 mg/dL 1.6-2.6 627) BASIC METABOLIC [id number] 07:10:00 Test Item Value Reference Range Interpretation [...] APPLICABLE FOR DIALYSIS PATIEN TS. HEMOGLOBIN AND [id number] 19:10:00 Test Item Value Reference Range Interpretation Comments HEMOGLOBIN (BEAKER) (test code = 8.1 GM/DL 13.7-17.5 L 410) HEMATOCRIT (BEAKER) (test code = 24.8 % 40.1-51.0 L 411) RAD, CHEST, 1 VIEW, NON [id number] 07:39:00Reason for exam:->post operative cardiacShould this be [...] line. No other significant change. Signed: Rudolph Canoeport Verified Date/Time: 12/08/2018 07:39:23 Reading Location: [facility] Radiology Reading Room PHOSPHORUS 2018-12-08 05:54:00 Test Item Value Reference Range Interpretation Comments PHOSPHORUS (BEAKER) (test code = 2.7 mg/dL 2.3-4.7 604) BASIC METABOLIC [id number] 05:54:00 Test Item Value Reference Range Interpretation [...] PATIEN TS. CBC W/PLT COUNT & AUTO [id number] 04:57:00 Test Item Value Reference Range Interpretation [...] (BEAKER) (test code = 2801) BASIC METABOLIC [id number] 12:27:00 Test Item Value Reference Range Interpretation [...] APPLICABLE FOR DIALYSIS PATIEN TS. HEMOGLOBIN AND [id number] 12:09:00 Test Item Value Reference Range Interpretation Comments HEMOGLOBIN (BEAKER) (test code = 7.3 GM/DL 13.7-17.5 L 410) HEMATOCRIT (BEAKER) (test code = 23.0 % 40.1-51.0 L 411) [id number] 07:19:00 Test Item Value Reference Range Interpretation Comments PHOSPHORUS (BEAKER) (test code = 3.0 mg/dL 2.3-4.7 604) [id number] 07:19:00 Test Item Value Reference Range Interpretation Comments MAGNESIUM (BEAKER) (test code = 2.4 mg/dL 1.6-2.6 627) BASIC METABOLIC [id number] 07:19:00 Test Item Value Reference Range Interpretation [...] = 413) RAD, CHEST, 1 VIEW, NON [id number] 05:15:00Reason for exam:->post operative cardiacShould this be performed at the bedside?->YesFINAL REPORT RAD, CHEST, 1 VIEW, NON DEPT INDICATION: post operative cardiac COMPARISON: Prior day's exam FINDINGS: Portable frontal view of the chest. IMPRESSION: Support Lines: Stable. Lungs and pleura: Unchanged airspace and pleural opacities. No pneumothorax.Heart and mediastinum: Stable contours. Stable surgical changes.Additional findings: None. Signed: Lida Henriquez MDReport Verified Date/Time: 12/07/2018 05:15:09 Reading Location: [facility] Transitional Reading Room BASIC METABOLIC [id number] 00:00:00 Test Item Value Reference Range Interpretation [...] APPLICABLE FOR DIALYSIS PATIEN TS. HEMOGLOBIN AND [id number] 22:57:00 Test Item Value Reference Range Interpretation Comments HEMOGLOBIN (BEAKER) (test code = 6.9 GM/DL 13.7-17.5 L 410) HEMATOCRIT (BEAKER) (test code = 21.1 % 40.1-51.0 L 411) BASIC METABOLIC [id number] 16:15:00 Test Item Value Reference Range Interpretation [...] APPLICABLE FOR DIALYSIS PATIEN TS. HEMOGLOBIN AND [id number] 15:58:00 Test Item Value Reference Range Interpretation Comments HEMOGLOBIN (BEAKER) (test code = 7.2 GM/DL 13.7-17.5 L 410) HEMATOCRIT (BEAKER) (test code = 22.0 % 40.1-51.0 L 411) PROTEIN ELECTROPHORESIS, [id number] 11:34:00 Test Item Value Reference Range Interpretation [...] in (BEAKER) (test code = expected distribution 2613) with slight decrease in serum albumin. No monoclonal bands detected. [id number] Terrie Rubio MD (BEAKER) (test code = (electronic signature) 8000) PROTEIN TOTAL SERUM, 6.1 gm/dL 6.0-8.3 SPEP (BEAKER) (test code = 2660) [id number] 10:57:00 Test Item Value Reference Range Interpretation Comments POTASSIUM (BEAKER) 5.4 meq/L 3.5-5.1 H Specimen slightly (test code = 379) hemolyzed Every 8 hours PRN for Creatinine greater than or equal to 2 mg/dL.CBC W/PLT COUNT & AUTO [id number] 10:43:00 Test Item Value Reference Range Interpretation [...] = 2801) RAD, CHEST, 1 VIEW, NON [id number] 08:09:00Reason for exam:->post operative cardiacShould this be [...] MDReport Verified Date/Time: 12/06/2018 08:09:04 Reading Location: [facility] B1 C013X Ortho Consult ReadingRoom POTASSIUM-STAT [id number] 06:31:00 Test Item Value Reference Range Interpretation Comments POTASSIUM (BEAKER) (test code = 4.9 meq/L 3.6-5.5 379) BLOOD GAS, [id number] 06:20:00 Test Item Value Reference Range Interpretation [...] (BEAKER) (test code = 1819) 21.0 % [id number] 06:11:00 Test Item Value Reference Range Interpretation Comments PHOSPHORUS (BEAKER) (test code = 4.3 mg/dL 2.3-4.7 604) [id number] 06:11:00 Test Item Value Reference Range Interpretation Comments MAGNESIUM (BEAKER) (test code = 2.3 mg/dL 1.6-2.6 627) BASIC METABOLIC [id number] 06:11:00 Test Item Value Reference Range Interpretation [...] 0-0 (BEAKER) (test code = 413) PLATELET [id number] 04:57:00 Test Item Value Reference Range Interpretation Comments PLATELET COUNT (BEAKER) (test 203 K/CU MM 150-450 code = 756) RAD, CHEST, 1 VIEW, NON [id number] 00:32:00Reason for exam:->chest tubes FINAL REPORT EXAMINATION: [...] of a significant pneumothorax. Signed: Osmel Mccann [facility] Verified Date/Time: 12/06/2018 00:32:25 Reading Location: [address] Reading Room Electronically signedby: OSMEL MCCANN M.D. on 12/06/2018 12:32 [id number] 23:36:00 Test Item Value Reference Range Interpretation [...] is 2.5-3.5 for patients with mechanical heart valves.[id number] 23:35:00 Test Item Value Reference Range Interpretation Comments FIBRINOGEN LEVEL (BEAKER) (test 340 mg/dl 225-434 code = 658) CBC W/PLT COUNT & AUTO [id number] 23:15:00 Test Item Value Reference Range Interpretation [...] (BEAKER) (test code = 2801) BLOOD GAS, [id number] 23:13:00 Test Item Value Reference Range Interpretation [...] (test code = 1819) 36.0 % GLUCOSE-STAT [id number] 23:13:00 Test Item Value Reference Range Interpretation Comments GLUCOSE RANDOM (BEAKER) (test code 172 mg/dL 70-110 H = 652) HGB/HCT (H&H) - STAT [id number] 23:13:00 Test Item Value Reference Range Interpretation Comments HEMOGLOBIN (BEAKER) (test code = 9.1 g/dL 13.0-16.8 L 410) HEMATOCRIT (BEAKER) (test code = 27.0 % 40.0-50.0 L 411) SODIUM NA-STAT [id number] 23:09:00 Test Item Value Reference Range Interpretation Comments SODIUM (BEAKER) (test code = 381) 136 meq/L 135-148 POTASSIUM-STAT [id number] 23:09:00 Test Item Value Reference Range Interpretation Comments POTASSIUM (BEAKER) (test code = 5.0 meq/L 3.6-5.5 379) RAD, CHEST, 1 VIEW, NON [id number] 22:57:00while patient is intubated or has chest [...] MDReport Verified Date/Time: 12/05/2018 22:57:32 Reading Location: [facility] B1 C013W Consult Reading Room [id number] 22:51:00 Test Item Value Reference Range Interpretation Comments ACTIVATED CLOTTING TIME 120 sec TEST ED AT [place] [address] ([facility]) (test code = JAMISON Fontane[place] [address]) [id number] 22:51:00 Test Item Value Reference Range Interpretation Comments ACTIVATED CLOTTING TIME 521 sec TEST ED AT [place] [address] ([facility]) (test code = [place] [address]) [id number] 22:51:00 Test Item Value Reference Range Interpretation Comments ACTIVATED CLOTTING TIME 527 sec TEST ED AT [place] [address] ([facility] (test code = [place] [address]) [id number] 22:51:00 Test Item Value Reference Range Interpretation Comments ACTIVATED CLOTTING TIME 483 sec TEST ED AT [place] [address] ([facility]) (test code = [place] [address]) [id number] 22:51:00 Test Item Value Reference Range Interpretation Comments ACTIVATED CLOTTING TIME 483 sec TEST ED AT [place] [address] ([facility]) (test code = [place] [address]) [id number] 22:51:00 Test Item Value Reference Range Interpretation Comments ACTIVATED CLOTTING TIME 698 sec TEST ED AT [place] [address] ([facility] (test code = [place] [address]) [id number] 22:51:00 Test Item Value Reference Range Interpretation Comments ACTIVATED CLOTTING TIME 439 sec TEST ED AT [facility] 6720 (BEAKER) (test code = [place] [address]) [address] BLOOD GAS, [id number] 21:49:00 Test Item Value Reference Range Interpretation Comments PH ARTERIAL (BEAKER) (test code = 7.41 7.35-7.45 383) PCO2 ARTERIAL (BEAKER) (test code 36 mmHg 35-45 = 384) PO2 ARTERIAL (BEAKER) (test code 157 mmHg 80-90 H = 385) O2 SATURATION ARTERIAL (BEAKER) 99.1 % 96.0-97.0 H (test code = 386) HCO3 ARTERIAL (BEAKER) (test code 22 mmol/L - = 388) BASE EXCESS ARTERIAL (BEAKER) -2.1 mmol/L -2.0-3.0 L (test code = 387) PATIENT TEMPERATURE (BEAKER) 36.7 C (test code = 1818) FIO2 (BEAKER) (test code = 1819) 40.0 % CALCIUM, [id number] 19:50:00 Test Item Value Reference Range Interpretation Comments CALCIUM IONIZED (BEAKER) (test 1.11 mmol/L 1.12-1.27 L code = 698) PH, BLOOD (BEAKER) (test code = 7.51 1810) HGB/HCT (H&H) - STAT [id number] 19:50:00 Test Item Value Reference Range Interpretation [...] (test 0.0 % 0.0-5.0 code = 1414) [id number] 17:58:00 Test Item Value Reference Range Interpretation [...] 2.5-3.5 for patients with mechanical heart valves.PROTHROMBIN [id number] 17:57:00 Test Item Value Reference Range Interpretation Comments PROTIME (BEAKER) (test code = 16.5 seconds 11.7-14.7 H 759) INR (BEAKER) (test code = 370) 1.3 <=5.9 RECOMMENDED COUMADIN/WARFARIN INR THERAPY RANGESSTANDARD DOSE: 2.0 - 3.0 Includes: PROPHYLAXIS forvenous thrombosis, systemic embolization; TREATMENT for venous thrombosis and/or pulmonary embolus.HIGH RISK: Target INR is 2.5-3.5 for patients with mechanical heart valves.[id number] 17:57:00 Test Item Value Reference Range Interpretation Comments FIBRINOGEN LEVEL (BEAKER) (test 347 mg/dl 225-434 code = 658) [id number] 17:27:00 Test Item Value Reference Range Interpretation Comments PHOSPHORUS (BEAKER) (test code = 3.3 mg/dL 2.3-4.7 604) [id number] 17:27:00 Test Item Value Reference Range Interpretation Comments MAGNESIUM (BEAKER) (test code = 2.6 mg/dL 1.6-2.6 627) BASIC METABOLIC [id number] 17:27:00 Test Item Value Reference Range Interpretation [...] APPLICABLE FOR DIALYSIS PATIEN TS. LACTIC ACID, [id number] 17:21:00 Test Item Value Reference Range Interpretation Comments LACTATE BLOOD ARTERIAL (2) 1.9 mmol/L 0.5-2.2 (BEAKER) (test code = 2874) OXYGEN SATURATION, [id number] 17:10:00 Test Item Value Reference Range Interpretation Comments O2 SATURATION (MEASURED) (BEAKER) 81.3 % (test code = 1455) CBC W/PLT COUNT & AUTO [id number] 17:07:00 Test Item Value Reference Range Interpretation [...] (BEAKER) (test code = 2801) SODIUM NA-STAT [id number] 17:05:00 Test Item Value Reference Range Interpretation Comments SODIUM (BEAKER) (test code = 381) 138 meq/L 135-148 POTASSIUM-STAT [id number] 17:05:00 Test Item Value Reference Range Interpretation Comments POTASSIUM (BEAKER) (test code = 3.9 meq/L 3.6-5.5 379) BLOOD GAS, [id number] 17:05:00 Test Item Value Reference Range Interpretation [...] (test code = 1819) 80.0 % GLUCOSE-STAT [id number] 17:05:00 Test Item Value Reference Range Interpretation Comments GLUCOSE RANDOM (BEAKER) (test code 140 mg/dL 70-110 H = 652) HGB/HCT (H&H) - STAT [id number] 17:05:00 Test Item Value Reference Range Interpretation [...] 63.7 MM 55.0-65.0 (test code = 1413) [id number] 14:59:00 Test Item Value Reference Range Interpretation Comments FIBRINOGEN LEVEL (BEAKER) (test 368 mg/dl 225-434 code = 658) [id number] 14:59:00 Test Item Value Reference Range Interpretation [...] (BEAKER) (test code = 413) BLOOD GAS, [id number] 14:15:00 Test Item Value Reference Range Interpretation [...] (test code = 1819) 95.0 % GLUCOSE-STAT [id number] 14:15:00 Test Item Value Reference Range Interpretation Comments GLUCOSE RANDOM (BEAKER) (test code 196 mg/dL 70-110 H = 652) HGB/HCT (H&H) - STAT [id number] 14:15:00 Test Item Value Reference Range Interpretation Comments HEMOGLOBIN (BEAKER) (test code = 9.9 g/dL 13.0-16.8 L 410) HEMATOCRIT (BEAKER) (test code = 29.0 % 40.0-50.0 L 411) SODIUM NA-STAT [id number] 14:13:00 Test Item Value Reference Range Interpretation Comments SODIUM (BEAKER) (test code = 381) 136 meq/L 135-148 POTASSIUM-STAT [id number] 14:13:00 Test Item Value Reference Range Interpretation Comments POTASSIUM (BEAKER) (test code = 4.9 meq/L 3.6-5.5 379) BLOOD GAS, [id number] 13:59:00 Test Item Value Reference Range Interpretation [...] (test code = 1819) 90.0 % POTASSIUM-STAT [id number] 13:59:00 Test Item Value Reference Range Interpretation Comments POTASSIUM (BEAKER) (test code = 5.7 meq/L 3.6-5.5 H 379) GLUCOSE-STAT [id number] 13:59:00 Test Item Value Reference Range Interpretation Comments GLUCOSE RANDOM (BEAKER) (test code 221 mg/dL 70-110 H = 652) HGB/HCT (H&H) - STAT [id number] 13:59:00 Test Item Value Reference Range Interpretation Comments HEMOGLOBIN (BEAKER) (test code = 10.2 g/dL 13.0-16.8 L 410) HEMATOCRIT (BEAKER) (test code = 30.0 % 40.0-50.0 L 411) SODIUM NA-STAT [id number] 13:44:00 Test Item Value Reference Range Interpretation Comments SODIUM (BEAKER) (test code = 381) 135 meq/L 135-148 BLOOD GAS, [id number] 13:11:00 Test Item Value Reference Range Interpretation [...] (test code = 1819) 70.0 % GLUCOSE-STAT [id number] 13:11:00 Test Item Value Reference Range Interpretation Comments GLUCOSE RANDOM (BEAKER) (test code 218 mg/dL 70-110 H = 652) HGB/HCT (H&H) - STAT [id number] 13:11:00 Test Item Value Reference Range Interpretation Comments HEMOGLOBIN (BEAKER) (test code = 9.9 g/dL 13.0-16.8 L 410) HEMATOCRIT (BEAKER) (test code = 29.0 % 40.0-50.0 L 411) SODIUM NA-STAT [id number] 13:09:00 Test Item Value Reference Range Interpretation Comments SODIUM (BEAKER) (test code = 381) 135 meq/L 135-148 POTASSIUM-STAT [id number] 13:09:00 Test Item Value Reference Range Interpretation Comments POTASSIUM (BEAKER) (test code = 5.3 meq/L 3.6-5.5 379) BLOOD GAS, [id number] 12:50:00 Test Item Value Reference Range Interpretation [...] (test code = 1819) 65.0 % GLUCOSE-STAT [id number] 12:50:00 Test Item Value Reference Range Interpretation Comments GLUCOSE RANDOM (BEAKER) (test code 208 mg/dL 70-110 H = 652) HGB/HCT (H&H) - STAT [id number] 12:50:00 Test Item Value Reference Range Interpretation Comments HEMOGLOBIN (BEAKER) (test code = 9.7 g/dL 13.0-16.8 L 410) HEMATOCRIT (BEAKER) (test code = 29.0 % 40.0-50.0 L 411) SODIUM NA-STAT [id number] 12:49:00 Test Item Value Reference Range Interpretation Comments SODIUM (BEAKER) (test code = 381) 135 meq/L 135-148 POTASSIUM-STAT [id number] 12:49:00 Test Item Value Reference Range Interpretation Comments POTASSIUM (BEAKER) (test code = 5.1 meq/L 3.6-5.5 379) BLOOD GAS, [id number] 12:23:00 Test Item Value Reference Range Interpretation [...] 21-29 = 388) BASE EXCESS ARTERIAL (BEAKER) 0.3 mmol/L -2.0-3.0 (test code = 387) PATIENT TEMPERATURE (BEAKER) (test 30.3 C code = 1818) FIO2 (BEAKER) (test code = 1819) 80.0 % GLUCOSE-STAT [id number] 12:23:00 Test Item Value Reference Range Interpretation Comments GLUCOSE RANDOM (BEAKER) (test code 183 mg/dL 70-110 H = 652) HGB/HCT (H&H) - STAT [id number] 12:23:00 Test Item Value Reference Range Interpretation Comments HEMOGLOBIN (BEAKER) (test code = 9.7 g/dL 13.0-16.8 L 410) HEMATOCRIT (BEAKER) (test code = 29.0 % 40.0-50.0 L 411) SODIUM NA-STAT [id number] 12:22:00 Test Item Value Reference Range Interpretation Comments SODIUM (BEAKER) (test code = 381) 135 meq/L 135-148 POTASSIUM-STAT [id number] 12:22:00 Test Item Value Reference Range Interpretation Comments POTASSIUM (BEAKER) (test code = 4.7 meq/L 3.6-5.5 379) SODIUM NA-STAT [id number] 11:58:00 Test Item Value Reference Range Interpretation Comments SODIUM (BEAKER) (test code = 381) 136 meq/L 135-148 POTASSIUM-STAT [id number] 11:58:00 Test Item Value Reference Range Interpretation Comments POTASSIUM (BEAKER) (test code = 4.1 meq/L 3.6-5.5 379) BLOOD GAS, [id number] 11:58:00 Test Item Value Reference Range Interpretation [...] (test code = 1819) 100.0 % GLUCOSE-STAT [id number] 11:58:00 Test Item Value Reference Range Interpretation Comments GLUCOSE RANDOM (BEAKER) (test code 143 mg/dL 70-110 H = 652) HGB/HCT (H&H) - STAT [id number] 11:58:00 Test Item Value Reference Range Interpretation Comments HEMOGLOBIN (BEAKER) (test code = 10.9 g/dL 13.0-16.8 L 410) HEMATOCRIT (BEAKER) (test code = 32.0 % 40.0-50.0 L 411) BLOOD GAS, [id number] 11:57:00 Test Item Value Reference Range Interpretation Comments PH VENOUS (BEAKER) (test code = 7.42 7.32-7.42 701) PCO2 VENOUS (BEAKER) (test code = 39 mmHg 41-51 L 755) PO2 VENOUS (BEAKER) (test code = 63 mmHg 25-40 H 702) O2 SATURATION VENOUS (BEAKER) 95.3 % 40.0-70.0 H (test code = 703) HCO3 VENOUS (BEAKER) (test code = 26 mmol/L -29 705) BASE EXCESS VENOUS (BEAKER) (test 0.0 mmol/L -2.0-3.0 code = 704) PATIENT TEMPERATURE (BEAKER) (test 33.6 C code = 1818) FIO2 (BEAKER) (test code = 1819) 100.0 % HEMOGLOBIN [id number] 10:26:00 Test Item Value Reference Range Interpretation Comments HEMOGLOBIN A1C (BEAKER) (test code = 5.2 % 4.3-6.1 368) PLATELET AGGREGATION: FUNCTION [id number] 09:03:00 Test Item Value Reference Range Interpretation Comments WEAK ADP 55 % 60-91 L RESULT(BEAKER) (test code = 2135) PLATELET FUNCTION 50-59% indicates mild SCREEN INTERP platelet dysfunction (BEAKER) (test code = 2173) [id number] Sam Ramírez MD (BEAKER) (test code = (electronic signature) 0163) PLATELET COUNT AGG 169 K/CU MM 150-450 (BEAKER) (test code = 2656) Platelet Function Screen results may be falsely low with platelet counts<100,000/cu mm.BLOOD GAS, [id number] 08:53:00 Test Item Value Reference Range Interpretation [...] 1819) 100.0 % HGB/HCT (H&H) - STAT [id number] 08:53:00 Test Item Value Reference Range Interpretation Comments HEMOGLOBIN (BEAKER) (test code = 12.7 g/dL 13.0-16.8 L 410) HEMATOCRIT (BEAKER) (test code = 37.0 % 40.0-50.0 L 411) CALCIUM, [id number] 08:53:00 Test Item Value Reference Range Interpretation Comments CALCIUM IONIZED (BEAKER) (test 1.05 mmol/L 1.12-1.27 L code = 698) PH, BLOOD (BEAKER) (test code = 7.48 1810) GLUCOSE-STAT [id number] 08:51:00 Test Item Value Reference Range Interpretation Comments GLUCOSE RANDOM (BEAKER) (test code 102 mg/dL 70-110 = 652) SODIUM NA-STAT [id number] 08:51:00 Test Item Value Reference Range Interpretation Comments SODIUM (BEAKER) (test code = 381) 138 meq/L 135-148 POTASSIUM-STAT [id number] 08:51:00 Test Item Value Reference Range Interpretation Comments POTASSIUM (BEAKER) (test code = 4.1 meq/L 3.6-5.5 379) URINALYSIS W/ [id number] 05:26:00 Test Item Value Reference Range Interpretation [...] 1584) SOURCE(BEAKER) (test code = Urine, Voided 9005) VITAMIN D, [id number] 05:01:00 Test Item Value Reference Range Interpretation Comments VITAMIN D 25-OH (BEAKER) (test 24.8 ng/mL 6.6-49.9 code = 3924) Effective 06/19/2017: Reference Range ChangeNew: 6.6-49.9 ng/mL Previous: 13.0-47.8 ng/mLRecommended Vitamin D Target Range: 30.0-40.0 ng/mLCREATININE, RANDOM [id number] 04:55:00 Test Item Value Reference Range Interpretation Comments CREATININE URINE (BEAKER) (test 68.3 mg/dL code = 375) Reference Range: No NormalsPROTEIN, RANDOM [id number] 04:55:00 Test Item Value Reference Range Interpretation Comments PROTEIN, URINE (BEAKER) (test code = 19 mg/dL 0-14 H 1569) PTH, [id number] 04:44:00 Test Item Value Reference Range Interpretation Comments PARATHYROID HORMONE INTACT 69.0 pg/mL 8.5-72.5 (BEAKER) (test code = 577) BASIC METABOLIC [id number] 04:41:00 Test Item Value Reference Range Interpretation [...] = 413) RAD, CHEST, 1 VIEW, NON [id number] 20:09:00Reason for exam:->Pre Op (ACB) ScreeninigShould this [...] MDReport Verified Date/Time: 12/04/2018 20:09:09 Reading Location: [address] Neuro Reading Room [id number] 04:47:00 Test Item Value Reference Range Interpretation Comments PARTIAL THROMBOPLASTIN TIME 83.1 seconds 22.5-36.0 H (BEAKER) (test code = 760) [id number] 04:44:00 Test Item Value Reference Range Interpretation Comments MAGNESIUM (BEAKER) 2.3 mg/dL 1.6-2.6 Specimen slightly (test code = 627) hemolyzed BASIC METABOLIC [id number] 04:44:00 Test Item Value Reference Range Interpretation [...] (test code = 413) PLATELET AGGREGATION: DRUG [id number] 19:31:00 Test Item Value Reference Range Interpretation Comments STRONG ADP 67 % 70-94 L RESULT(BEAKER) (test code = 2137) WEAK ADP RESULT(BEAKER) 65 % 60-91 (test code = 2135) ARACHADONIC ACID 5 % 63-89 L RESULT(BEAKER) (test code = 2138) PLATELET AGG DRUG Normal response to INTERPRETATION (BEAKER) ADP suggests a lack (test code = 2408) of [id number] effect. PLATELET AGG DRUG Decreased response to INTERPRETATION (BEAKER) arachidonic acid (test code = 675605) suggests aspirin-like effect. [id number] Sandi Ovalle MD (BEAKER) (test code = (electronic 2621) signature) PLATELET COUNT AGG 163 K/CU MM 150-450 (BEAKER) (test code = 2656) Platelet aggregation results may be falsely low with platelet counts<100,000/CU [id number] 12:53:00 Test Item Value Reference Range Interpretation Comments PARTIAL THROMBOPLASTIN TIME 69.0 seconds 22.5-36.0 H (BEAKER) (test code = 760) BASIC METABOLIC [id number] 07:03:00 Test Item Value Reference Range Interpretation [...] S NOT APPLICABLE FOR DIALYSIS PATIEN TS. [id number] 06:52:00 Test Item Value Reference Range Interpretation [...] WBC 0-0 (BEAKER) (test code = 413) [id number] 00:34:00 Test Item Value Reference Range Interpretation Comments PARTIAL THROMBOPLASTIN TIME 56.8 seconds 22.5-36.0 H (BEAKER) (test code = 760) [id number] 16:56:00 Test Item Value Reference Range Interpretation Comments PARTIAL THROMBOPLASTIN TIME 54.7 seconds 22.5-36.0 H (BEAKER) (test code = 760) B-TYPE NATRIURETIC FACTOR (BNP)2018-12-02 09:39:00 Test Item Value Reference Range Interpretation Comments B-TYPE NATRIURETIC PEPTIDE 1056 pg/mL 0-100 H (BEAKER) (test code = 700) [id number] 09:17:00 Test Item Value Reference Range Interpretation Comments PARTIAL THROMBOPLASTIN TIME 39.8 seconds 22.5-36.0 H (BEAKER) (test code = 760) TROPONIN [id number] 04:45:00 Test Item Value Reference Range Interpretation [...] acute neurological disease, and persistent tachyarrhythmia.BASIC METABOLIC [id number] 04:29:00 Test Item Value Reference Range Interpretation [...] NOT APPLICABLE FOR DIALYSIS PATIEN TS. LIPID [id number] 04:29:00 Test Item Value Reference Range Interpretation [...] WBC 0-0 (BEAKER) (test code = 413) [id number] 18:55:00 Test Item Value Reference Range Interpretation Comments ACTIVATED CLOTTING TIME 98 [address] [facility] [address] (BEAKER) (test code = [place] [address]) [address] COMPREHENSIVE METABOLIC [id number] 18:40:00 Test Item Value Reference Range Interpretation [...] S NOT APPLICABLE FOR DIALYSIS PATIEN TS. [id number] 18:31:00 Test Item Value Reference Range Interpretation [...] 2.5-3.5 for patients with mechanical heart valves.PROTHROMBIN [id number] 18:30:00 Test Item Value Reference Range Interpretation [...] EOSINOPHILS ABSOLUTE COUNT 0.04 K/ L 0.04-0.54 (BEAKER) (test code = 416) BASOPHILS ABSOLUTE COUNT (BEAKER) 0.04 K/ L 0.01-0.08 (test code = 417) IMMATURE GRANULOCYTES-RELATIVE 1 % 0-1 PERCENT (BEAKER) (test code = 2801) [id number] 18:07:00 Test Item Value Reference Range Interpretation Comments ACTIVATED CLOTTING TIME 136 sec [address] ED [address] [facility] [address] ([facility]) (test code = [place] [facility]) [address]
[2020-07-31] MEDS ORDERED: NA CHLORIDE 0.9% 1,000 ML ONE (14:13)
[2020-07-31 14:24] LABS: Absolute Lymphocytes (CBC) 1.3 K/uL (0.7-4.9); Basophils % 0.9 % (0-1.3); Hematocrit 36.7 % (39.6-49.0); Lymphocytes % 18.8 % (15.3-44.8); MPV 10.1 fL (7.6-11.3)
[2020-07-31 14:46] LABS: ALT/SGPT 17 U/L (12-78); AST/SGOT 12 U/L (15-37); Albumin 3.3 g/dL (3.4-5.0); Alkaline Phosphatase 74 U/L (45-117); BUN Blood Urea Nitrogen 28 mg/dL (7-18); Bicarbonate 28 mmol/L (21-32); Bilirubin Direct 0.1 mg/dL (0-0.2); Bilirubin Total 0.5 mg/dL (0.2-1.0); Creatine Phosphokinase 54 U/L (39-308); Glucose Level 102 mg/dL (74-106); Lipase 71 U/L (73-393); Magnesium 2.2 mg/dL (1.8-2.4); NT PRO-BNP 289 pg/mL (<125); Potassium 4.2 mmol/L (3.5-5.1); Protein, Total 6.9 g/dL (6.4-8.2); Sodium Level 143 mmol/L (136-145); Troponin (Emerg Dept Use Only) < 0.02 ng/mL (0.0-0.045)
--- NOTE | 2020-07-31 15:04 | EDPHYS ---
Physician Documentation [facility] Name: Jason Johnson Age: 70 yrs Sex: Male : 1950 Arrival Date: 07/31/2020 Time: 13:38 Bed 3 Private MD: ED Physician Kaden Gutierrez HPI: 07/31 14:07 This 70 yrs old Male presents to ER via EMS with complaints of AMS. rn 14:07 The patient presents with decreased responsiveness. Onset: The symptoms/episode rn began/occurred just prior to arrival. Possible causes: unknown. Associated signs and symptoms: Pertinent positives: confusion, dizziness, lightheadedness, Pertinent negatives: abdominal pain, chest pain, headache, seizure, shortness of breath, tingling, vertigo, vomiting, weakness. Current symptoms: In the emergency department the patient's symptoms have resolved. The patient has not experienced similar symptoms in the past. The patient has not recently seen a physician. Reports watching [employer], wasn't aware that anything happened, bystander reported that he had a few minutes of "incoherence", no seizure activity, no fever/chest pain/sob/recent illness/abd pain/vomiting. Did have bowel movement, has been wearing diapers, doesn't recall straining or pain. Denies preceding chest pain/sob. Given some IV fluids by EMS and feels better, Reports only thing bothering him is the stool in his pants. Reports bought some water during amoebae problem and ran out yesterday, no water in about 24 hours. . Historical: - Allergies: 13:40 No Known Drug Allergies; sv - PMHx: 13:40 constipation; CVA; Hypertension; sv - PSHx: 13:40 CABG; sv - Immunization history:: Adult Immunizations up to date. - Social history:: Smoking status: Patient denies any tobacco usage or history of. - Family history:: not pertinent. - Hospitalizations: : No recent hospitalization is reported. ROS: 14:07 Constitutional: Negative for fever, chills, and weight loss, Eyes: Negative for injury, rn pain, redness, and discharge, Neck: Negative for injury, pain, and swelling, Cardiovascular: Negative for chest pain, palpitations, and edema, Respiratory: Negative for shortness of breath, cough, wheezing, and pleuritic chest pain, Abdomen/GI: Negative for abdominal pain, nausea, vomiting, diarrhea, and constipation, Back: Negative for injury and pain, MS/Extremity: Negative for injury and deformity, Skin: Negative for injury, rash, and discoloration, Neuro: Negative for headache, weakness, numbness, tingling, and seizure. Exam: 14:05 ECG was reviewed by the Attending Physician. rn 14:07 Constitutional: This is a well developed, well nourished patient who is awake, alert, rn and in no acute distress. Head/Face: Normocephalic, atraumatic. Eyes: Pupils equal round and reactive to light, extra-ocular motions intact. Lids and lashes normal. Conjunctiva and sclera are non-icteric and not injected. Cornea within normal limits. Periorbital areas with no swelling, redness, or edema. ENT: dry MM Neck: Trachea midline, no thyromegaly or masses palpated, and no cervical lymphadenopathy. Supple, full range of motion without nuchal rigidity, or vertebral point tenderness. No Meningismus. Cardiovascular: Bradycardic, regular Respiratory: Speaking full sentences. No increased work of breathing, no retractions or nasal flaring. Abdomen/GI: soft, non-tender Skin: Warm, dry MS/ Extremity: Pulses equal, no cyanosis. Neuro: Awake and alert, GCS 15, oriented to person, place, time, and situation. Cranial nerves II-XII grossly intact. Motor strength 5/5 in all extremities. Sensory grossly intact. Cerebellar exam normal. Vital Signs: 13:39 BP 118 / 82; Pulse 51; Resp 16; Temp 98.0(O); Pulse Ox 99% on R/A; Weight 86.18 kg; em Height 6 ft. 2 in. (187.96 cm); Pain 0/10; 14:00 BP 109 / 79; Pulse 53; Resp 18; Pulse Ox 97% on R/A; vg1 15:00 BP 111 / 75; Pulse 54; Resp 18; Pulse Ox 99% on R/A; vg1 15:30 BP 104 / 72; Pulse 60; Resp 16; Pulse Ox 96% on R/A; vg1 16:00 BP 111 / 73; Pulse 66; Resp 16; Pulse Ox 97% on R/A; vg1 16:30 BP 112 / 76; Pulse 64; Resp 16; Pulse Ox 99% on R/A; vg1 17:00 BP 114 / 76; Pulse 66; Resp 14; Pulse Ox 100% on R/A; vg1 13:39 Body Mass Index 24.39 (86.18 kg, 187.96 cm) em MDM: 13:43 Patient medically screened. rn 14:58 Differential Diagnosis: CVA, electrolyte abnormality, seizure, UTI, volume depletion, rn syncope. Differential Diagnosis: dehydration. Data reviewed: vital signs, nurses notes. 15:01 Counseling: I had a detailed discussion with the patient and/or guardian regarding: the rn historical points, exam findings, and any diagnostic results supporting the discharge/admit diagnosis, lab results, radiology results, the need for further work-up and treatment in the hospital. Response to treatment: the patient's symptoms have markedly improved after treatment, and as a result, I will admit patient. Admission orders: after a detailed discussion of the patient's condition and case, the admit orders are written by me. ED course: Pt feels much better, unclear etiology of bradycardia/hypotension, + dehydration, normal neuro exam on presentation and repeat neuro exam without focal findings. Will obs overnight ot Dr. Bridges. Has had CVA and CAD in past with CABG. . 07/31 13:53 Order name: Hepatic Function; Complete Time: 14:46 rn 07/31 13:53 Order name: Basic Metabolic Panel; Complete Time: 14:46 rn 07/31 13:53 Order name: CBC with Diff; Complete Time: 14:46 rn 07/31 13:53 Order name: CPK; Complete Time: 14:46 rn 07/31 13:53 Order name: Lipase; Complete Time: 14:46 rn 07/31 13:53 Order name: Magnesium; Complete Time: 14:46 rn 07/31 13:53 Order name: Protime (+inr) rn 07/31 13:53 Order name: Ptt, Activated rn 07/31 13:53 Order name: Troponin (emerg Dept Use Only); Complete Time: 14:46 rn 07/31 13:53 Order name: BNP; Complete Time: 14:46 rn 07/31 15:48 Order name: Basic Metabolic Panel EDMS 07/31 15:48 Order name: Basic Metabolic Panel EDIL 07/31 15:48 Order name: CBC with Automated Diff EDIL 07/31 15:48 Order name: CBC with Automated Diff [facility] 07/31 13:53 Order name: CT Head Brain wo Cont; Complete Time: 15:11 rn 07/31 13:53 Order name: EKG; Complete Time: 13:55 rn 07/31 13:53 Order name: Cardiac monitoring; Complete Time: 13:57 rn 07/31 13:53 Order name: EKG - Nurse/Tech; Complete Time: 13:58 rn 07/31 15:48 Order name: Heart Healthy [facility] 07/31 15:48 Order name: Echo with Doppler [facility] 07/31 15:48 Order name: EKG Electrocardiogram [facility] 07/31 15:48 Order name: EKG Electrocardiogram [facility] 07/31 15:48 Order name: Lipid Profile [facility] 07/31 15:48 Order name: Lipid Profile [facility] 07/31 15:48 Order name: Troponin I [facility] 07/31 15:48 Order name: Troponin I [facility] 07/31 15:48 Order name: Troponin I [facility] 07/31 16:52 Order name: Urine Dipstick--Ancillary (enter results) wi 07/31 16:55 Order name: Urine Dipstick-Ancillary [facility] 07/31 13:53 Order name: IV Saline Lock; Complete Time: 14:18 07/31 13:53 Order name: Labs collected and sent; Complete Time: 14:18 07/31 13:53 Order name: NPO; Complete Time: 13:58 07/31 13:53 Order name: O2 Per Protocol; Complete Time: 13:58 07/31 13:53 Order name: O2 Sat Monitoring; Complete Time: 13:58 07/31 13:53 Order name: Urine Dipstick-Ancillary (obtain specimen); Complete Time: 17:08 07/31 14:31 Order name: Labs - recollect needed; Complete Time: 15:19 mt EC:05 Rate is 50 beats/min. Rhythm is regular. QRS [place] is Normal. [place] interval is normal. QRS rn interval is normal. QT interval is normal. No Q waves. T waves are Normal. No ST changes noted. Clinical impression: Sinus bradycardia. Interpreted by me. Reviewed by me. Administered Medications: 14:16 Drug: NS 0.9% 500 ml Route: IV; Rate: bolus; Site: left antecubital; vg1 16:17 Follow up: IV Status: Completed infusion; IV Intake: 500ml vg1 Disposition: 07/31/20 15:03 Hospitalization ordered by Nancy Bridges for Observation. Preliminary diagnosis are Altered mental status, unspecified, Bradycardia, unspecified, Hypotension, unspecified, Dehydration. - Bed requested for Telemetry/MedSurg (observation). - Status is Observation. vg1 - Condition is Stable. - Problem is new. - Symptoms have improved. Signatures: Dispatcher [employer] Marisela El, RN Desi Spencer RN Salomón Frankel, Kaden Stacy RN, MD MD rn Thompson, Moriah Rose Porter RN RN vg1 Corrections: (The following items were deleted from the chart) 16:41 15:03 Hospitalization Ordered by Nancy Bridges MD for Observation. Preliminary dw diagnosis is Altered mental status, unspecified; Bradycardia, unspecified; Hypotension, unspecified; Dehydration. Bed requested for Telemetry/MedSurg (observation). Status is Observation. Condition is Stable. Problem is new. Symptoms have improved. rn 17:18 16:41 07/31/2020 15:03 Hospitalization Ordered by Nancy Bridges MD for Observation. vg1 Preliminary diagnosis is Altered mental status, unspecified; Bradycardia, unspecified; Hypotension, unspecified; Dehydration. Bed requested for Telemetry/MedSurg (observation). Status is Observation. Condition is Stable. Problem is new. Symptoms have improved. dw
--- NOTE | 2020-07-31 15:04 | ER ---
Nurse's Notes [facility] Name: Jason Johnson Age: 70 yrs Sex: Male : 1950 Arrival Date: 07/31/2020 Time: 13:38 Bed 3 Private MD: Diagnosis: Altered mental status, unspecified;Bradycardia, unspecified;Hypotension, unspecified;Dehydration Presentation: 07/31 13:39 Chief complaint: EMS states: was at [facility] and had an episode of incoherence, was em staring into space, that lasted 3-4 minutes then resolved, pt BP on scene was 70's systolic and HR was in the 50's, pt became responsive and reports feeling weird prior to event, BGL 124, given 600 mL NS, 20 G LAC. Coronavirus screen: Client denies travel out of the [place] in the last 14 days. Ebola Screen: Patient negative for fever greater than or equal to 101.5 degrees Fahrenheit, and additional compatible Ebola Virus Disease symptoms Patient denies exposure to infectious person. Patient denies travel to an Ebola-affected area in the 21 days before illness onset. No symptoms or risks identified at this time. Initial Sepsis Screen: Does the patient meet any 2 criteria? No. Patient's initial sepsis screen is negative. Does the patient have a suspected source of infection? No. Patient's initial sepsis screen is negative. Risk Assessment: Do you want to hurt yourself or someone else? Patient reports no desire to harm self or others. Onset of symptoms was July 31, 2020. 13:39 Method Of Arrival: EMS: [facility] em 13:39 Acuity: NINA 2 em Historical: - Allergies: 13:40 No Known Drug Allergies; sv - PMHx: 13:40 constipation; CVA; Hypertension; sv - PSHx: 13:40 CABG; sv - Immunization history:: Adult Immunizations up to date. - Social history:: Smoking status: Patient denies any tobacco usage or history of. - Family history:: not pertinent. - Hospitalizations: : No recent hospitalization is reported. Screenin:43 Abuse screen: Denies threats or abuse. Nutritional screening: No deficits noted. em Tuberculosis screening: No symptoms or risk factors identified. Fall Risk None identified. Assessment: 13:35 General: Appears in no apparent distress. Behavior is calm, cooperative. Pain: Denies vg1 pain. Neuro: Level of Consciousness is awake, alert, obeys commands, confused, Oriented to person, place, time, situation. Cardiovascular: Patient's skin is warm and dry. Respiratory: Airway is patent Respiratory effort is even, unlabored, Respiratory pattern is regular, symmetrical. GI: No signs and/or symptoms were reported involving the gastrointestinal system. : EENT: No signs and/or symptoms were reported regarding the EENT system. Derm: Skin is pink, warm \T\ dry. Musculoskeletal: Range of motion: intact in all extremities. 14:25 Reassessment: Assisted patient to restroom; patient had BM; stool noted to hands and vg1 legs; helped patient clean self. Patient stated was constipated and now feels better. Notified Provider. 15:03 Reassessment: Patient appears in no apparent distress at this time. Patient and/or vg1 family updated on plan of care and expected duration. Pain level reassessed. Patient is alert, oriented x 3, equal unlabored respirations, skin warm/dry/pink. Patient denies pain at this time. 16:09 Reassessment: Patient appears in no apparent distress at this time. Patient and/or vg1 family updated on plan of care and expected duration. Pain level reassessed. Patient is alert, oriented x 3, equal unlabored respirations, skin warm/dry/pink. Patient states 'feeling really cold'. Placed another blanket on patient. Denies any other concerns at this time. Patient denies pain at this time. 17:09 Reassessment: Called report to JAVI Mack. vg1 17:13 Reassessment: Patient appears in no apparent distress at this time. Patient and/or vg1 family updated on plan of care and expected duration. Pain level reassessed. Patient is alert, oriented x 3, equal unlabored respirations, skin warm/dry/pink. Patient notified of admit to room 203. Vital Signs: 13:39 BP 118 / 82; Pulse 51; Resp 16; Temp 98.0(O); Pulse Ox 99% on R/A; Weight 86.18 kg; em Height 6 ft. 2 in. (187.96 cm); Pain 0/10; 14:00 BP 109 / 79; Pulse 53; Resp 18; Pulse Ox 97% on R/A; vg1 15:00 BP 111 / 75; Pulse 54; Resp 18; Pulse Ox 99% on R/A; vg1 15:30 BP 104 / 72; Pulse 60; Resp 16; Pulse Ox 96% on R/A; vg1 16:00 BP 111 / 73; Pulse 66; Resp 16; Pulse Ox 97% on R/A; vg1 16:30 BP 112 / 76; Pulse 64; Resp 16; Pulse Ox 99% on R/A; vg1 17:00 BP 114 / 76; Pulse 66; Resp 14; Pulse Ox 100% on R/A; vg1 13:39 Body Mass Index 24.39 (86.18 kg, 187.96 cm) em ED Course: 13:38 Patient arrived in ED. em 13:40 Arm band placed on. sv 13:43 Kaden Gutierrez MD is Attending Physician. rn 13:43 Triage completed. em 13:43 Patient has correct armband on for positive identification. Placed in gown. Bed in low em position. Call light in reach. Side rails up X2. Adult w/ patient. groundwater monitoring technician on. Pulse ox on. NIBP on. 14:05 Rose Shen, JAVI is Primary Nurse. vg1 14:10 Inserted saline lock: 20 gauge in left antecubital area, using aseptic technique. Blood dh3 collected. 14:10 Initial lab(s) drawn, by me, sent to lab. dh3 14:38 Radiology exam delayed due to pt in the restroom. mw3 14:[address] via wheelchair. vg1 15:00 CT Head Brain wo Cont In Process Unspecified. EDMS 15:03 Nancy Bridges MD is Hospitalizing Provider. rn 17:16 No provider procedures requiring assistance completed. Patient admitted, IV remains in vg1 place. Administered Medications: 14:16 Drug: NS 0.9% 500 ml Route: IV; Rate: bolus; Site: left antecubital; vg1 16:17 Follow up: IV Status: Completed infusion; IV Intake: 500ml vg1 Intake: 16:17 IV: 500ml; Total: 500ml. vg1 Outcome: 15:03 Decision to Hospitalize by Provider. rn 17:17 Admitted to Tele accompanied by tech, via wheelchair, room 203, with chart, Report vg1 called to Martina CALDWELL 17:17 Condition: stable 17:17 Instructed on the need for admit. 17:18 Patient left the ED. vg1 Signatures: Dispatcher [employer] Marisela El, RN Salomón Bermudez RN RN em Nieto, Roman, MD MD rn Herrera, Deanna 3 Kristy Mcneal 3 Rose Shen, RN RN vg1 Corrections: (The following items were deleted from the chart) 13:44 13:39 BP 118 / 82; Pulse 81bpm; Resp 16bpm; Pulse Ox 99% RA; Temp 98.0F Oral; 86.18 kg; em Height 6 ft. 2 in.; BMI: 24.3; Pain 0/10; em
--- NOTE | 2020-07-31 15:09 | RAD REPORT ---
EXAM DESCRIPTION: CT - Head Brain Wo Cont - 07/31/2020 3:01 pm CLINICAL HISTORY: Confused;Dizziness Headache, drowsiness COMPARISON: Head Brain Wo Cont dated 05/01/2020; Head Brain Wo Cont dated 07/26/2019 TECHNIQUE: All CT scans are performed using dose optimization technique as appropriate and may inclu de automated exposure control or mA/KV adjustment according to patient size. FINDINGS: No intracranial hemorrhage, hydrocephalus or extra-axial fluid collection.Mild generalized brain atrophy is present with moderate periventricular and deep white matter chronic microvascular i schemic changes.No areas of brain edema or evidence of midline shift. 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 The paranasal sinuses and mastoids are clear. The calvarium is intact. IMPRESSION: No acute intracranial abnormality.
[2020-07-31 15:33] LABS: Protime INR 1.06
[2020-07-31] MEDS ORDERED: MORPHINE 4 MG/ML SYR IV PRN (15:40)
[2020-07-31] MEDS ORDERED: ACETAMINOPHEN 500 MG TAB PO PRN (15:40)
[2020-07-31] MEDS ORDERED: ALPRAZOLAM 0.25 MG TABLET PO PRN (15:40)
--- NOTE | 2020-07-31 15:49 | P.HP ---
Certification for Inpatient Patient admitted to: Observation With expected LOS: <2 Midnights Patient will require the following post-hospital care: None Practitioner: I am a practitioner with admitting privileges, knowledge of patient current condition, hospital course, and medical plan of care. Services: Services provided to patient in accordance with Admission requirements found in Title 42 Section 412.3 of the Code of Federal Regulations Patient History Date of Service: 07/31/20 Reason for admission: Syncope History of Present Illness: Patient is a 70-year-old gentleman who came to the hospital after becoming confused. Patient was at [facility] with his friends watching the football game when he started speaking incoherently. His friends were not able to understand what exactly was same. He has stool incontinence at that time x2. He became lightheaded and he states that he did not pass out although it was reported to EMS that he had a near syncopal event. Patient was hypotensive and bradycardic on arrival. This seemed to correct fairly quickly. On arrival his vital signs were stable. He was given some IV fluids and he had to go to the restroom and had a large bowel movement. He states that he had not gone to the restroom in 4 days. He normally has to take a suppository. After he had a large bowel movement he said he went to feeling back to normal. He was wanting to go home but because of his symptoms it was advise he stay overnight. Will watch him on telemetry and will also get an echocardiogram and carotid Doppler. He will probably need outpatient follow-up with cardiology and Neurology as well. Allergies No Known Drug Allergies Allergy (Verified 07/26/19 19:32) Unknown Home Medications: Aspirin 2 tab PO DAILY 06/14/18 Clopidogrel Bisulfate [Plavix*] 75 mg PO DAILY tablet 12/23/18 Docusate/Senna [Senokot-S*] 2 tab PO BEDTIME tab 12/23/18 Ferrous Sulfate [Ferrous Sulfate*] 325 mg PO DAILY tab 12/23/18 Linaclotide [Linzess] 290 mcg PO DAILY 06/10/19 L.acidoph,Paracasei, B.lactis [Probiotic] 1 cap PO BREAKFAST 07/26/19 L.acidoph,Paracasei, B.lactis [Probiotic] 2 cap PO BEDTIME 07/26/19 Multivit with Iron,Minerals [Spectravite Senior] 1 tab PO DAILY 07/26/19 Omeprazole 40 mg PO 0630 07/26/19 Atorvastatin Calcium [Lipitor] 40 mg PO BEDTIME tab 07/28/19 Amlodipine [Norvasc*] 10 mg PO DAILY 07/31/20 Betamethasone/Propylene Glyc [Betamethasone Dp Aug 0.05% Crm] 1 liberty TOP TID PRN 07/31/20 Irbesartan 300 mg PO DAILY 07/31/20 carvediloL [Carvedilol] 6.25 mg PO BID 07/31/20 terbinafine HCL [Terbinafine HCl] 250 mg PO DAILY 07/31/20 - Past Medical/Surgical History Diabetic: No -: CVA -: HTN -: renal insufficiency -: nava Hip FX -: broken ankle R -: CKD -: tonsillectomy -: nava reconstructive hip SX -: SX R ankle with pins - Family History Father Family History: Reviewed- Non-Contributory - Social History Smoking Status: Never smoker Alcohol use: No CD- Drugs: No Caffeine use: Yes Review of Systems 10-point ROS is otherwise unremarkable Physical Examination - Vital Signs Temperature: 97.0 F Blood Pressure: 112/58 Pulse: 62 Respirations: 18 Pulse Ox (%): 95 - Physical Exam General: Alert, In no apparent distress, Oriented x3 HEENT: Atraumatic, PERRLA, Mucous membr. moist/pink, EOMI, Sclerae nonicteric Neck: Supple, 2+ carotid pulse no bruit, No LAD, Without JVD or thyroid abnormality Respiratory: Clear to auscultation bilaterally, Normal air movement Cardiovascular: Regular rate/rhythm, Normal S1 S2, No murmurs Gastrointestinal: Normal bowel sounds, Soft and benign, Non-distended, No tenderness Musculoskeletal: No clubbing, No swelling, No tenderness Integumentary: No rashes Neurological: Normal gait, Normal speech, Normal strength at 5/5 x4 extr, Normal tone, Sensation intact, Cranial nerves 3-12 intact, Normal affect Lymphatics: No axilla or inguinal lymphadenopathy - Studies Laboratory Data (last 24 hrs) 07/31/20 15:09: PT 12.5, INR 1.06, APTT 20.6 L 07/31/20 14:10: WBC 6.7, Hgb 12.4 L, Hct 36.7 L, Plt Count 170 07/31/20 14:10: Sodium 143, Potassium 4.2, BUN 28 H, Creatinine 1.85 H, Glucose 102, Magnesium 2.2, Total Bilirubin 0.5, AST 12 L, ALT 17, Alkaline Phosphatase 74, Lipase 71 L Assessment & Plan - Problems (Diagnosis) (1) Near syncope Current Visit: Yes Status: Acute (2) Vasovagal near-syncope Current Visit: Yes Status: Acute (3) Constipation Current Visit: Yes Status: Acute (4) CAD (coronary artery disease) Current Visit: No Status: Chronic (5) H/O: CVA (cerebrovascular accident) Current Visit: No Status: Chronic (6) HTN (hypertension) Current Visit: No Status: Chronic - Plan plan: 1. Check carotid Doppler and echocardiogram 2. Monitor on telemetry 3. Gentle hydration 4. Check orthostatic blood pressures 5. Ambulate with assist 6. Resume anti-platelet therapy and home medications 7. GI and DVT prophylaxis Discharge Plan: Home Plan to discharge in: 24 Hours - Advance Directives Does patient have a Living Will: No Does patient have a Durable POA for Healthcare: No - Code Status/Comfort Care Code Status Assessed: Yes Code Status: Full Code Critical Care: No Time Spent Managing PTS Care (In Minutes): 40
[2020-07-31] MEDS: NA CHLORIDE 0.9% 1,000 ML IV SCH ×2 (16:00→20:44)
[2020-07-31 16:54] LABS: Urine Blood NEGATIVE (NEG); Urine Glucose NEGATIVE (NEG); Urine Protein NEGATIVE (NEG); Urine Specific Gravity 1.015 (1.005-1.030); Urine pH 5.5 (5.0-7.0)
[2020-07-31 18:04] VITALS: BMI 24.3
[2020-07-31] MEDS: METOPROLOL TAR 50 MG TAB PO SCH (20:41)
[2020-07-31] MEDS ORDERED: ATORVASTATIN 40 MG TAB PO SCH (21:00)
[2020-07-31 21:41] VITALS: O2SAT 98
[2020-08-01] MEDS: NA CHLORIDE 0.9% 1,000 ML IV SCH ×2 (02:00→05:54)
[2020-08-01 05:49] LABS: Absolute Lymphocytes (CBC) 1.8 K/uL (0.7-4.9); Basophils % 1.1 % (0-1.3); Hematocrit 35.6 % (39.6-49.0); Lymphocytes % 27.2 % (15.3-44.8); MPV 9.7 fL (7.6-11.3); RBC Red Blood Cell Count 3.84 M/uL (4.33-5.43)
[2020-08-01 06:10] LABS: BUN Blood Urea Nitrogen 24 mg/dL (7-18); Bicarbonate 28 mmol/L (21-32); Glucose Level 86 mg/dL (74-106); HDL Cholesterol 26 mg/dL (40-60); LDL Cholesterol, Calculated 85 (<130); Potassium 4.1 mmol/L (3.5-5.1); Sodium Level 146 mmol/L (136-145); Troponin I < 0.02 ng/mL (0.0-0.045)
[2020-08-01] MEDS ORDERED: ASPIRIN EC 81 MG TAB PO SCH (09:00)
[2020-08-01] MEDS ORDERED: ENOXAPARIN 40 MG/0.4 ML SQ SCH (09:00)
[2020-08-01] MEDS: METOPROLOL TAR 50 MG TAB PO SCH (09:48)
[2020-08-01] MEDS ORDERED: BETAMETHASONE DP AUG 0.05% TOP PRN (11:03)
--- NOTE | 2020-08-01 11:05 | P.DS ---
Admission Date: 07/31/20 Discharge Date: 08/01/20 Primary Care Provider: Dr. Stephens Disposition: ROUTINE DISCHARGE Discharge Condition: GOOD Reason for Admission: Syncope Consultations: none Procedures: Ct Head: FINDINGS: No intracranial hemorrhage, hydrocephalus or extra-axial fluid collection.Mild generalized brain atrophy is present with moderate periventricular and deep white matter chronic microvascular ischemic changes.No areas of brain edema or evidence of midline shift. Old left cerebellar infarct noted. The paranasal sinuses and mastoids are clear. The calvarium is intact. IMPRESSION: No acute intracranial abnormality. Medical Problem List: Near syncope likely vasovagal reaction with mild dehydration Acute on chronic renal disease stage III Bradycardia Constipation CAD History of CVA, left cerebellar infarct Hypertension Hyperlipidemia Iron deficiency anemia Brief History of Present Illness: 70-year-old male with history of hypertension. Patient presented to the ER after some confusion. Patient was apparently at [facility] with friends watching football when he start to speak incoherently. His friends are not able to understand. Patient had stool incontinence x2 at that time. He became lightheaded. He states that he did not pass out although EMS reported near syncope. Patient was hypotensive and bradycardic with EMS. This seemed to correct fairly quickly. In the ER vital signs were within normal range. He was given IV fluids. Patient had another large bowel movement. He stated he had not been to the restroom in over 4 days. He normally takes a suppository. Patient desired to go home but it was advised to monitor the patient closely. Patient agreed. Hospital Course: Patient presented with near syncope. This occurred after stool incontinence. Patient with history of constipation. CT head unremarkable. Cardiac enzymes x3 unremarkable. Patient had mild bradycardia. The patient was given IV fluids Overnite. Repeat orthostatics unremarkable. Patient at baseline. Near syncope likely vasovagal reaction. Near syncope may be related to overmedication. Blood pressure medications have been adjusted. Patient with history of CVA-left cerebellar infarct, hypertension, hyperlipidemia and CAD. Will recommend to continue aspirin 81 mg daily and Plavix 75 mg daily. With his history of CVA will recommend to increase Lipitor to 80 mg daily as his LDL is 85. Education on orthostatics hypotension will be provided. Recommend to monitor blood pressure daily. If his blood pressure is less than 110/60 he may need to hold his blood pressure medication. Recommend follow up with cardiology and Neurology within 1 week to follow up this hospitalization and to further evaluate. Fall precautions in place. Patient with acute on chronic renal disease stage III. Patient appeared mildly dehydrated. Patient given IV fluids. Renal function now back to baseline. Recommend no further use of nonsteroidal anti-inflammatories. Future medications may need to be renally dose. Recommend to recheck lab-BMP in 1-2 weeks to monitors progress. Patient with hypertension. Patient had orthostatic hypotension likely vasovagal reaction. His medications were reviewed in detail. Patient takes irbesartan 300 mg daily, carvedilol 6.25 mg 1 pill twice daily, and Norvasc 10 mg daily. Medications have been adjusted due to orthostatic hypotension and bradycardia. Recommend to monitor blood pressure daily. At discharge will recommend to discontinue irbesartan 300 mg daily and carvedilol 6.25 mg 1 pill twice daily. At discharge will recommend to continue with decrease dose of Norvasc [address] Hold medication if blood pressure systolic less than 110. If blood pressure increases then he is to contact his PCP for further adjustment in medication. Recommend follow up with his PCP to further monitor and adjust his medication. Patient with hyperlipidemia. Patient previously on Lipitor 40 mg daily. LDL 85. In light of his history of CAD and CVA, will recommend to increase Lipitor t o 80 mg daily. Recommend to recheck fasting lipid panel in 4-6 weeks to monitor his progress. Further adjustment can be done by his PCP. Patient with iron deficiency anemia. This appears stable. At discharge he may continue with his current iron supplementation. Patient with history of constipation. Patient may continue with his stool softener and medication-Linzess. Recommend follow up with GI to further monitor and address. Vital Signs/Physical Exam: Temp Pulse Resp BP Pulse Ox 97.7 F 53 18 130/78 97 08/01/20 08:00 08/01/20 09:48 08/01/20 08:00 08/01/20 09:48 08/01/20 08:00 General: Alert, In no apparent distress, Oriented x3, Cooperative HEENT: Atraumatic Neck: Supple Respiratory: Clear to auscultation bilaterally, Normal air movement Cardiovascular: Normal pulses, Regular rate/rhythm Gastrointestinal: Normal bowel sounds, Soft and benign, Non-distended, No tenderness, No masses, No rebound, No guarding Musculoskeletal: No erythema, No tenderness, No warmth Integumentary: No tenderness/swelling, No erythema, No warmth, No cyanosis Neurological: Normal speech, Normal strength at 5/5 x4 extr, Normal tone, Normal affect Laboratory Data at Discharge: WBC 6.6 K/uL (4.3-10.9) 08/01/20 05:30 Hgb 12.4 g/dL (13.6-17.9) L 08/01/20 05:30 Hct 35.6 % (39.6-49.0) L 08/01/20 05:30 Plt Count 154 K/uL (152-406) 08/01/20 05:30 PT 12.5 SECONDS (9.5-12.5) 07/31/20 15:09 INR 1.06 07/31/20 15:09 APTT 20.6 SECONDS (24.3-36.9) L 07/31/20 15:09 Sodium 146 mmol/L (136-145) H 08/01/20 05:30 Potassium 4.1 mmol/L (3.5-5.1) 08/01/20 05:30 BUN 24 mg/dL (7-18) H 08/01/20 05:30 Creatinine 1.66 mg/dL (0.55-1.3) H 08/01/20 05:30 Glucose 86 mg/dL (74-106) 08/01/20 05:30 Magnesium 2.2 mg/dL (1.8-2.4) 07/31/20 14:10 Total Bilirubin 0.5 mg/dL (0.2-1.0) 07/31/20 14:10 AST 12 U/L (15-37) L 07/31/20 14:10 ALT 17 U/L (12-78) 07/31/20 14:10 Alkaline Phosphatase 74 U/L (45-117) 07/31/20 14:10 Troponin I < 0.02 ng/mL (0.0-0.045) 08/01/20 05:30 Triglycerides 201 mg/dL (<150) H 08/01/20 05:30 Cholesterol 151 mg/dL (<200) 08/01/20 05:30 HDL Cholesterol 26 mg/dL (40-60) L 08/01/20 05:30 Cholesterol/HDL Ratio 5.81 08/01/20 05:30 Lipase 71 U/L (73-393) L 07/31/20 14:10 Home Medications: Aspirin 2 tab PO DAILY 06/14/18 Clopidogrel Bisulfate [Plavix*] 75 mg PO DAILY tablet 12/23/18 Docusate/Senna [Senokot-S*] 2 tab PO BEDTIME tab 12/23/18 Ferrous Sulfate [Ferrous Sulfate*] 325 mg PO DAILY tab 12/23/18 Linaclotide [Linzess] 290 mcg PO DAILY 06/10/19 L.acidoph,Paracasei, B.lactis [Probiotic] 1 cap PO BREAKFAST 07/26/19 L.acidoph,Paracasei, B.lactis [Probiotic] 2 cap PO BEDTIME 07/26/19 Multivit with Iron,Minerals [Spectravite Senior] 1 tab PO DAILY 07/26/19 Omeprazole 40 mg PO 0630 07/26/19 Betamethasone/Propylene Glyc [Betamethasone Dp Aug 0.05% Crm] 1 liberty TOP TID PRN 07/31/20 Amlodipine Besylate [Norvasc] 5 mg PO DAILY #30 tablet 08/01/20 Atorvastatin Calcium [Lipitor] 80 mg PO DAILY #30 tablet 08/01/20 New Medications: Atorvastatin Calcium [Lipitor] 80 mg PO DAILY #30 tablet Amlodipine Besylate [Norvasc] 5 mg PO DAILY #30 tablet Patient Discharge Instructions: 1. Recommend follow up with PCP in 1 week to follow up this hospitalization. 2. Patient presented with near syncope. This occurred after stool incontinence. Patient with history of constipation. CT head unremarkable. Cardiac enzymes x3 unremarkable. Patient had mild bradycardia. The patient was given IV fluids Overnite. Repeat orthostatics unremarkable. Patient at baseline. Near syncope likely vasovagal reaction. Near syncope may be related to overmedication. Blood pressure medications have been adjusted. Patient with history of CVA-left cerebellar infarct, hypertension, hyperlipidemia and CAD. Will recommend to continue aspirin 81 mg daily and Plavix 75 mg daily. With his history of CVA will recommend to increase Lipitor to 80 mg daily as his LDL is 85. Education on orthostatics hypotension will be provided. Recommend to monitor blood pressure daily. If his blood pressure is less than 110/60 he may need to hold his blood pressure medication. Recommend follow up with cardiology and Neurology within 1 week to follow up this hospitalization and to further evaluate. Fall precautions in place. 3. Patient with acute on chronic renal disease stage III. Patient appeared mildly dehydrated. Patient given IV fluids. Renal function now back to baseline. Recommend no further use of nonsteroidal anti-inflammatories. Future medications may need to be renally dose. Recommend to recheck lab-BMP in 1-2 weeks to monitors progress. 4. Patient with hypertension. Patient had orthostatic hypotension likely vasovagal reaction. His medications were reviewed in detail. Patient takes irbesartan 300 mg daily, carvedilol 6.25 mg 1 pill twice daily, and Norvasc 10 mg daily. Medications have been adjusted due to orthostatic hypotension and bradycardia. Recommend to monitor blood pressure daily. At discharge will recommend to discontinue irbesartan 300 mg daily and carvedilol 6.25 mg 1 pill twice daily. At discharge will recommend to continue with decrease dose of Norvasc 5 mg daily. Hold medication if blood pressure systolic less than 110. If blood pressure increases then he is to contact his PCP for further adjustment in medication. Recommend follow up with his PCP to further monitor and adjust his medication. 5. Patient with hyperlipidemia. Patient previously on Lipitor 40 mg daily. LDL 85. In light of his history of CAD and CVA, will recommend to increase Lipitor to 80 mg daily. Recommend to recheck fasting lipid panel in 4-6 weeks to monitor his progress. Further adjustment can be done by his PCP. 6. Patient with iron deficiency anemia. This appears stable. At discharge he may continue with his current iron supplementation. 7. Patient with history of constipation. Patient may continue with his stool softener and medication-Linzess. Recommend follow up with GI to further monitor and address. Diet: AHA Activity: Fall precautions Followup: Unknown,U [Primary Care Provider] - Time spent managing pt's care (in minutes): 55
[2020-08-01 13:18] VITALS: BP 122/73; TEMP 97.4
--- NOTE | 2020-08-01 15:20 | ECHO ---
HEIGHT: 6 ft 2 in WEIGHT: 190 lb 0 oz DATE OF STUDY: 08/01/[address]: Nancy Bridges MD 2-DIMENSIONAL: YES M.MODE: YES DOPPLER: YES COLOR FLOW: YES TDS: PORTABLE: DEFINITY: BUBBLE STUDY: DIAGNOSIS: SYNCOPE CARDIAC HISTORY: CATHERIZATION: SURGERY: PROSTHETIC VALVE: PACEMAKER: MEASUREMENTS (cm) DIASTOLIC (NORMALS) SYSTOLIC (NORMALS) IVSd 1.0 (0.6-1.2) LA Diam 4.2 (1.9-4.0) LVEF 58% LVIDd 5.5 (3.5-5.7) LVIDs 3.8 (2.0-3.5) %FS 31% LVPWd 1.2 (0.6-1.2) Ao Diam 3.7 (2.0-3.7) 2 DIMENSIONAL ASSESSMENT: RIGHT ATRIUM: NORMAL LEFT ATRIUM: NORMAL RIGHT VENTRICLE: NORMAL LEFT VENTRICLE: NORMAL TRICUSPID VALVE: NORMAL MITRAL VALVE: MILD MITRAL REGURGITATION PULMONIC VALVE: NORMAL AORTIC VALVE: THICKENED, NO AORTIC STENOSIS PERICARDIAL EFFUSION: NONE AORTIC ROOT: NORMAL LEFT VENTRICULAR WALL MOTION: NORMAL DOPPLER/COLOR FLOW: NORMAL COMMENTS: NORMAL LEFT VENTRICULAR EJECTION FRACTION 55-60% WITH NORMAL WALL MOTION. THICKENED AORTIC VALVE, NO AORTIC STENOSIS. MILD MITRAL REGURGITATION. TECHNOLOGIST: BECKY NAIK
[2020-08-01] MEDS ORDERED: DOCUSATE NA/SENNA CONC 1 TAB PO SCH (21:00)
[2020-08-01] MEDS ORDERED: LACTOBACILLUS/ACIDOPHILUS TAB PO SCH (21:00)
[2020-08-02] MEDS ORDERED: LACTOBACILLUS/ACIDOPHILUS TAB PO SCH (08:00)
[2020-08-02] MEDS ORDERED: MULTIVIT W/ MINERAL TAB PO SCH (09:00)
[2020-08-02] MEDS ORDERED: FERROUS SULFATE 325 MG TAB PO SCH (09:00)
[2020-08-02] MEDS ORDERED: LINACLOTIDE 290 MCG PO SCH (09:00)
== END 2020-08-01 15:09 | disposition home or self-care (01) ==
LOC: ER 13:34 → ERHOLD 16:03 → 2ND 17:14
PROVIDERS: ADMIT Hospitalist; ATTEND Family Medicine
DX: I95.1 Orthostatic hypotension (principal); E86.0 Dehydration; R00.1 Bradycardia, unspecified; I12.9 Hypertensive chronic kidney disease with stage 1 through stage 4 chronic kidney disease, or unspecified chronic kidney disease; N18.30 Chronic kidney disease, stage 3 unspecified; D63.1 Anemia in chronic kidney disease; N17.9 Acute kidney failure, unspecified; D50.9 Iron deficiency anemia, unspecified; K59.00 Constipation, unspecified; R15.9 Full incontinence of feces; I25.10 Atherosclerotic heart disease of native coronary artery without angina pectoris; E78.5 Hyperlipidemia, unspecified; Z79.82 Long term (current) use of aspirin; Z79.02 Long term (current) use of antithrombotics/antiplatelets; Z86.73 Personal history of transient ischemic attack (TIA), and cerebral infarction without residual deficits; Z95.1 Presence of aortocoronary bypass graft; Z20.828 Contact with and (suspected) exposure to other viral communicable diseases
CPT/HCPCS: 96361; 93005; 93306; 85025 ×2; 80048 ×2; 36415 ×2; 83735; 82550; 85610; 80061; 80076; 85730; 81003; 84484 ×3; 83690; 83880; 70450; 97116; 97161; 96360; 99285; U0002; J1650; J7030 ×3; G0378 ×3

== ENCOUNTER 2022-04-22 15:50 | Observation (INO) | payer OTHER ==
--- OUTSIDE RECORDS SUMMARY | 2022-04-22 15:55 | XMS REPORT | Continuity of Care Document ---
:1950 Author Organization [facility] t Address [address] [place] [address] Care Team Providers Name Role Phone Veronique Hernandez Attending Clinician Unavailable MIGUEL FRANKLIN Attending Clinician Unavailable MIGUEL FRANKLIN Admitting Clinician Unavailable Problems This patient has no known problems. Allergies, Adverse Reactions, Alerts This patient has no known allergies or adverse reactions. Medications This patient has no known medications. Procedures This patient has no known procedures. Encounters Start End Encounter Admission Attending Care Care Encounter Source Date/Time Date/Time Type Type Clinicians Facility Department ID 2021-10-04 Outpatient David [facility] [id number] Common 13:57:51 Veronique [id number] [facility] 2021-06-15 2021-06-15 Outpatient [facility] [id number] Common 00:00:00 00:00:00 [facility] Results Test Description Test Time Test Comments [...] 1 /HPF SOURCE(BEAKER) (test code = 2795) [id number] 05:39:00 Test Item Value Reference Range Interpretation Comments PHOSPHORUS (BEAKER) (test code = 2.8 mg/dL 2.3-4.7 604) CBC W/PLT COUNT & AUTO [id number] 05:18:00 Test Item Value Reference Range Interpretation [...] (BEAKER) (test code = 2801) U/S, RENAL, [id number] 02:06:00Reason for exam:->ckdShould this be performed at [...] mural thickening may be due to underdistention. Patientwas unable to void. Impression:Limited exam.Echogenic kidneys in keeping with medical renal disease. No hydronephrosis.Small right renal cyst.Mild diffuse mural thickening of the urinary bladder may bedue to underdistention however correlation with urinalysis is advised to exclude infection. Signed: Eladio Gómezeport Verified Date/Time: 12/12/2018 02:06:07 Reading Location: [facility] B1 C013Y CT BodyReading Room [id number] 05:23:00 Test Item Value Reference Range Interpretation Comments PHOSPHORUS (BEAKER) (test code = 2.7 mg/dL 2.3-4.7 604) [id number] 05:23:00 Test Item Value Reference Range Interpretation Comments MAGNESIUM (BEAKER) (test code = 2.1 mg/dL 1.6-2.6 627) BASIC METABOLIC [id number] 05:23:00 Test Item Value Reference Range Interpretation [...] PATIEN TS. CBC W/PLT COUNT & AUTO [id number] 05:00:00 Test Item Value Reference Range Interpretation [...] H PERCENT (BEAKER) (test code = 2801) [id number] 05:42:00 Test Item Value Reference Range Interpretation Comments PHOSPHORUS (BEAKER) (test code = 2.9 mg/dL 2.3-4.7 604) [id number] 05:42:00 Test Item Value Reference Range Interpretation Comments MAGNESIUM (BEAKER) (test code = 2.0 mg/dL 1.6-2.6 627) BASIC METABOLIC [id number] 05:42:00 Test Item Value Reference Range Interpretation [...] PATIEN TS. CBC W/PLT COUNT & AUTO [id number] 05:18:00 Test Item Value Reference Range Interpretation [...] = 2801) RAD, CHEST, 1 VIEW, NON [id number] 10:12:00Reason for exam:->post operative cardiacShould this be [...] intact and well aligned. Signed: Zachariah Camejo Verified Date/Time: 12/09/2018 10:12:03 Reading Location: [facility] Radiology Reading Room CBC W/PLT COUNT & AUTO [id number] 07:16:00 Test Item Value Reference Range Interpretation [...] 0-1 PERCENT (BEAKER) (test code = 2801) [id number] 07:10:00 Test Item Value Reference Range Interpretation Comments PHOSPHORUS (BEAKER) (test code = 2.5 mg/dL 2.3-4.7 604) [id number] 07:10:00 Test Item Value Reference Range Interpretation Comments MAGNESIUM (BEAKER) (test code = 2.1 mg/dL 1.6-2.6 627) BASIC METABOLIC [id number] 07:10:00 Test Item Value Reference Range Interpretation [...] APPLICABLE FOR DIALYSIS PATIEN TS. HEMOGLOBIN AND [id number] 19:10:00 Test Item Value Reference Range Interpretation Comments HEMOGLOBIN (BEAKER) (test code = 8.1 GM/DL 13.7-17.5 L 410) HEMATOCRIT (BEAKER) (test code = 24.8 % 40.1-51.0 L 411) RAD, CHEST, 1 VIEW, NON [id number] 07:39:00Reason for exam:->post operative cardiacShould this be performed at the bedside?->YesFINAL REPORT Portable chest. CLINICAL HISTORY: post operative cardiac. COMPARISON STUDY: Chest x-ray from yesterday. FINDINGS: The cardiac silhouette is enlarged. Sternotomy wires are seen. The pulmonary parenchyma demonstrates mild reticular markings with atelectatic changes. Theright jugular line has been removed. The chest tubes remain. No pneumothorax is seen. Degenerative changes are noted. IMPRESSION: Removal of right jugular line. No other significant change. Signed: Rudolph Cano MDReport Verified Date/Time: 12/08/2018 07:39:23 Reading Location: [facility] [address] Radiology Reading Room [id number] 05:54:00 Test Item Value Reference Range Interpretation Comments PHOSPHORUS (BEAKER) (test code = 2.7 mg/dL 2.3-4.7 604) BASIC METABOLIC [id number] 05:54:00 Test Item Value Reference Range Interpretation [...] PATIEN TS. CBC W/PLT COUNT & AUTO [id number] 04:57:00 Test Item Value Reference Range Interpretation [...] (BEAKER) (test code = 2801) BASIC METABOLIC [id number] 12:27:00 Test Item Value Reference Range Interpretation [...] APPLICABLE FOR DIALYSIS PATIEN TS. HEMOGLOBIN AND [id number] 12:09:00 Test Item Value Reference Range Interpretation Comments HEMOGLOBIN (BEAKER) (test code = 7.3 GM/DL 13.7-17.5 L 410) HEMATOCRIT (BEAKER) (test code = 23.0 % 40.1-51.0 L 411) [id number] 07:19:00 Test Item Value Reference Range Interpretation Comments PHOSPHORUS (BEAKER) (test code = 3.0 mg/dL 2.3-4.7 604) [id number] 07:19:00 Test Item Value Reference Range Interpretation Comments MAGNESIUM (BEAKER) (test code = 2.4 mg/dL 1.6-2.6 627) BASIC METABOLIC [id number] 07:19:00 Test Item Value Reference Range Interpretation [...] = 413) RAD, CHEST, 1 VIEW, NON [id number] 05:15:00Reason for exam:->post operative cardiacShould this be [...] Henriquez Verified Date/Time: 12/07/2018 05:15:09 Reading Location: [address] Transitional Reading Room BASIC METABOLIC [id number] 00:00:00 Test Item Value Reference Range Interpretation [...] APPLICABLE FOR DIALYSIS PATIEN TS. HEMOGLOBIN AND [id number] 22:57:00 Test Item Value Reference Range Interpretation Comments HEMOGLOBIN (BEAKER) (test code = 6.9 GM/DL 13.7-17.5 L 410) HEMATOCRIT (BEAKER) (test code = 21.1 % 40.1-51.0 L 411) BASIC METABOLIC [id number] 16:15:00 Test Item Value Reference Range Interpretation [...] APPLICABLE FOR DIALYSIS PATIEN TS. HEMOGLOBIN AND [id number] 15:58:00 Test Item Value Reference Range Interpretation Comments HEMOGLOBIN (BEAKER) (test code = 7.2 GM/DL 13.7-17.5 L 410) HEMATOCRIT (BEAKER) (test code = 22.0 % 40.1-51.0 L 411) PROTEIN ELECTROPHORESIS, [id number] 11:34:00 Test Item Value Reference Range Interpretation [...] in (BEAKER) (test code = expected distribution 8474) with slight decrease in serum albumin. No monoclonal bands detected. [id number] Terrie Joanne, MD (BEAKER) (test code = (electronic signature) 1439) PROTEIN TOTAL SERUM, 6.1 gm/dL 6.0-8.3 SPEP (BEAKER) (test code = 6980) [id number] 10:57:00 Test Item Value Reference Range Interpretation Comments POTASSIUM (BEAKER) 5.4 meq/L 3.5-5.1 H Specimen slightly (test code = 379) hemolyzed Every 8 hours PRN for Creatinine greater than or equal to 2 mg/dL.CBC W/PLT COUNT & AUTO [id number] 10:43:00 Test Item Value Reference Range Interpretation [...] = 2801) RAD, CHEST, 1 VIEW, NON [id number] 08:09:00Reason for exam:->post operative cardiacShould this be [...] Impression: No interval change. Signed: Tylor Griffith Verified Date/Time: 12/06/2018 08:09:04 Reading Location: [address] Ortho Consult Reading Room POTASSIUM-STAT [id number] 06:31:00 Test Item Value Reference Range Interpretation Comments POTASSIUM (BEAKER) (test code = 4.9 meq/L 3.6-5.5 379) BLOOD GAS, [id number] 06:20:00 Test Item Value Reference Range Interpretation [...] (BEAKER) (test code = 1819) 21.0 % [id number] 06:11:00 Test Item Value Reference Range Interpretation Comments PHOSPHORUS (BEAKER) (test code = 4.3 mg/dL 2.3-4.7 604) [id number] 06:11:00 Test Item Value Reference Range Interpretation Comments MAGNESIUM (BEAKER) (test code = 2.3 mg/dL 1.6-2.6 627) BASIC METABOLIC [id number] 06:11:00 Test Item Value Reference Range Interpretation [...] 0-0 (BEAKER) (test code = 413) PLATELET [id number] 04:57:00 Test Item Value Reference Range Interpretation Comments PLATELET COUNT (BEAKER) (test 203 K/CU MM 150-450 code = 756) RAD, CHEST, 1 VIEW, NON [id number] 00:32:00Reason for exam:->chest tubes FINAL REPORT EXAMINATION: AP PORTABLE CHEST RADIOGRAPH CLINICAL INDICATION: Chest tubes IMPRESSION: Compared with 12/05/2018. 1813 hours. The endotracheal and nasogastric tubes havebeen removed. Support tube and catheter positions are [...] of a significant pneumothorax. Signed: Osmel Mccann Verified Date/Time: 12/06/2018 00:32:25 Reading Location: [address] Reading Room PT/APTT 2018-12-05 23:36:00 Test Item Value Reference Range Interpretation Comments PROTIME (BEAKER) (test code = 16.6 seconds 11.7-14.7 H 759) INR (BEAKER) (test code = 370) 1.3 <=5.9 PARTIAL THROMBOPLASTIN TIME 32.4 seconds 22.5-36.0 (BEAKER) (test code = 760) RECOMMENDED COUMADIN/WARFARIN INR THERAPY RANGESSTANDARD DOSE: 2.0 - 3.0 Includes: PROPHYLAXIS for venous thrombosis, systemic embolization; TREATMENT for venous thrombosis and/or pulmonary embolus.HIGH RISK: Target INR is 2.5-3.5 for patients with mechanical heart valves.[id number] 23:35:00 Test Item Value Reference Range Interpretation Comments FIBRINOGEN LEVEL (BEAKER) (test 340 mg/dl 225-434 code = 658) CBC W/PLT COUNT & AUTO [id number] 23:15:00 Test Item Value Reference Range Interpretation [...] (BEAKER) (test code = 2801) BLOOD GAS, [id number] 23:13:00 Test Item Value Reference Range Interpretation [...] (test code = 1819) 36.0 % GLUCOSE-STAT [id number] 23:13:00 Test Item Value Reference Range Interpretation Comments GLUCOSE RANDOM (BEAKER) (test code 172 mg/dL 70-110 H = 652) HGB/HCT (H&H) - STAT [id number] 23:13:00 Test Item Value Reference Range Interpretation Comments HEMOGLOBIN (BEAKER) (test code = 9.1 g/dL 13.0-16.8 L 410) HEMATOCRIT (BEAKER) (test code = 27.0 % 40.0-50.0 L 411) SODIUM NA-STAT [id number] 23:09:00 Test Item Value Reference Range Interpretation Comments SODIUM (BEAKER) (test code = 381) 136 meq/L 135-148 POTASSIUM-STAT [id number] 23:09:00 Test Item Value Reference Range Interpretation Comments POTASSIUM (BEAKER) (test code = 5.0 meq/L 3.6-5.5 379) RAD, CHEST, 1 VIEW, NON [id number] 22:57:00while patient is intubated or has chest [...] postoperative chest. Signed: Tylor Griffith Verified Date/Time: 12/05/2018 22:57:32 Reading Location: [address] Consult Reading Room [id number] 22:51:00 Test Item Value Reference Range Interpretation Comments ACTIVATED CLOTTING TIME 120 sec TEST ED AT [place] [address] ([facility]) (test code = JAMISON Fontanez [facility] [address]) [address] [id number] 22:51:00 Test Item Value Reference Range Interpretation Comments ACTIVATED CLOTTING TIME 521 sec TEST ED AT [place] [address] ([facility]) (test code = MERLYCALIN Fontanez [place] [address]) [address] [id number] 22:51:00 Test Item Value Reference Range Interpretation Comments ACTIVATED CLOTTING TIME 527 sec TEST ED AT [place] [address] ([facility]) (test code = JAMISON Fontanez [place] [address]) [address] [id number] 22:51:00 Test Item Value Reference Range Interpretation Comments ACTIVATED CLOTTING TIME 483 sec TEST ED AT [place] [address] ([facility]) (test code = JAMISON Fontanez [place] [address]) [address] [id number] 22:51:00 Test Item Value Reference Range Interpretation Comments ACTIVATED CLOTTING TIME 483 sec TEST ED AT [place] [address] ([facility]) (test code = JAMISON Fontanez [place] [address]) [address] [id number] 22:51:00 Test Item Value Reference Range Interpretation Comments ACTIVATED CLOTTING TIME 698 sec TEST ED AT [place] [address] ([facility]) (test code = JAMISON Fontanez [place] [facility]) [address] [id number] 22:51:00 Test Item Value Reference Range Interpretation Comments ACTIVATED CLOTTING TIME 439 sec TEST ED AT [place] [address] ([facility]) (test code = JAMISON Fontanez [place] [address]) [address] BLOOD GAS, [id number] 21:49:00 Test Item Value Reference Range Interpretation [...] (test code = 1819) 40.0 % CALCIUM, [id number] 19:50:00 Test Item Value Reference Range Interpretation Comments CALCIUM IONIZED (BEAKER) (test 1.11 mmol/L 1.12-1.27 L code = 698) PH, BLOOD (BEAKER) (test code = 7.51 1810) HGB/HCT (H&H) - STAT [id number] 19:50:00 Test Item Value Reference Range Interpretation [...] (test 0.0 % 0.0-5.0 code = 1414) [id number] 17:58:00 Test Item Value Reference Range Interpretation Comments PROTIME (BEAKER) (test code = 16.5 seconds 11.7-14.7 H 759) INR (BEAKER) (test code = 370) 1.3 <=5.9 PARTIAL THROMBOPLASTIN TIME 44.1 seconds 22.5-36.0 H (BEAKER) (test code = 760) RECOMMENDED COUMADIN/WARFARIN INR THERAPY RANGESSTANDARD DOSE: 2.0 - 3.0 Includes: PROPHYLAXIS for venous thrombosis, systemic embolization; TREATMENT for venous thrombosis and/or pulmonary embolus.HIGH RISK: Target INR is 2.5-3.5 for patients with mechanical heart valves.PROTHROMBIN [id number] 17:57:00 Test Item Value Reference Range Interpretation Comments PROTIME (BEAKER) (test code = 16.5 seconds 11.7-14.7 H 759) INR (BEAKER) (test code = 370) 1.3 <=5.9 RECOMMENDED COUMADIN/WARFARIN INR THERAPY RANGESSTANDARD DOSE: 2.0 - 3.0 Includes: PROPHYLAXIS for venous thrombosis, systemic embolization; TREATMENT for venous thrombosis and/or pulmonary embolus.HIGH RISK: Target INR is 2.5-3.5 for patients with mechanical heart valves.[id number] 17:57:00 Test Item Value Reference Range Interpretation Comments FIBRINOGEN LEVEL (BEAKER) (test 347 mg/dl 225-434 code = 658) [id number] 17:27:00 Test Item Value Reference Range Interpretation Comments PHOSPHORUS (BEAKER) (test code = 3.3 mg/dL 2.3-4.7 604) [id number] 17:27:00 Test Item Value Reference Range Interpretation Comments MAGNESIUM (BEAKER) (test code = 2.6 mg/dL 1.6-2.6 627) BASIC METABOLIC [id number] 17:27:00 Test Item Value Reference Range Interpretation [...] APPLICABLE FOR DIALYSIS PATIEN TS. LACTIC ACID, [id number] 17:21:00 Test Item Value Reference Range Interpretation Comments LACTATE BLOOD ARTERIAL (2) 1.9 mmol/L 0.5-2.2 (BEAKER) (test code = 2874) OXYGEN SATURATION, [id number] 17:10:00 Test Item Value Reference Range Interpretation Comments O2 SATURATION (MEASURED) (BEAKER) 81.3 % (test code = 1455) CBC W/PLT COUNT & AUTO [id number] 17:07:00 Test Item Value Reference Range Interpretation [...] (BEAKER) (test code = 2801) SODIUM NA-STAT [id number] 17:05:00 Test Item Value Reference Range Interpretation Comments SODIUM (BEAKER) (test code = 381) 138 meq/L 135-148 POTASSIUM-STAT [id number] 17:05:00 Test Item Value Reference Range Interpretation Comments POTASSIUM (BEAKER) (test code = 3.9 meq/L 3.6-5.5 379) BLOOD GAS, [id number] 17:05:00 Test Item Value Reference Range Interpretation [...] (test code = 1819) 80.0 % GLUCOSE-STAT [id number] 17:05:00 Test Item Value Reference Range Interpretation Comments GLUCOSE RANDOM (BEAKER) (test code 140 mg/dL 70-110 H = 652) HGB/HCT (H&H) - STAT [id number] 17:05:00 Test Item Value Reference Range Interpretation [...] 63.7 MM 55.0-65.0 (test code = 1413) [id number] 14:59:00 Test Item Value Reference Range Interpretation Comments FIBRINOGEN LEVEL (BEAKER) (test 368 mg/dl 225-434 code = 658) [id number] 14:59:00 Test Item Value Reference Range Interpretation Comments PROTIME (BEAKER) (test code = 17.1 seconds 11.7-14.7 H 759) INR (BEAKER) (test code = 370) 1.4 <=5.9 PARTIAL THROMBOPLASTIN TIME 27.8 seconds 22.5-36.0 (BEAKER) (test code = 760) RECOMMENDED COUMADIN/WARFARIN INR THERAPY RANGESSTANDARD DOSE: 2.0 - 3.0 Includes: PROPHYLAXIS for [...] (BEAKER) (test code = 413) BLOOD GAS, [id number] 14:15:00 Test Item Value Reference Range Interpretation [...] (test code = 1819) 95.0 % GLUCOSE-STAT [id number] 14:15:00 Test Item Value Reference Range Interpretation Comments GLUCOSE RANDOM (BEAKER) (test code 196 mg/dL 70-110 H = 652) HGB/HCT (H&H) - STAT [id number] 14:15:00 Test Item Value Reference Range Interpretation Comments HEMOGLOBIN (BEAKER) (test code = 9.9 g/dL 13.0-16.8 L 410) HEMATOCRIT (BEAKER) (test code = 29.0 % 40.0-50.0 L 411) SODIUM NA-STAT [id number] 14:13:00 Test Item Value Reference Range Interpretation Comments SODIUM (BEAKER) (test code = 381) 136 meq/L 135-148 POTASSIUM-STAT [id number] 14:13:00 Test Item Value Reference Range Interpretation Comments POTASSIUM (BEAKER) (test code = 4.9 meq/L 3.6-5.5 379) BLOOD GAS, [id number] 13:59:00 Test Item Value Reference Range Interpretation [...] (test code = 1819) 90.0 % POTASSIUM-STAT [id number] 13:59:00 Test Item Value Reference Range Interpretation Comments POTASSIUM (BEAKER) (test code = 5.7 meq/L 3.6-5.5 H 379) GLUCOSE-STAT [id number] 13:59:00 Test Item Value Reference Range Interpretation Comments GLUCOSE RANDOM (BEAKER) (test code 221 mg/dL 70-110 H = 652) HGB/HCT (H&H) - STAT [id number] 13:59:00 Test Item Value Reference Range Interpretation Comments HEMOGLOBIN (BEAKER) (test code = 10.2 g/dL 13.0-16.8 L 410) HEMATOCRIT (BEAKER) (test code = 30.0 % 40.0-50.0 L 411) SODIUM NA-STAT [id number] 13:44:00 Test Item Value Reference Range Interpretation Comments SODIUM (BEAKER) (test code = 381) 135 meq/L 135-148 BLOOD GAS, [id number] 13:11:00 Test Item Value Reference Range Interpretation [...] (test code = 1819) 70.0 % GLUCOSE-STAT [id number] 13:11:00 Test Item Value Reference Range Interpretation Comments GLUCOSE RANDOM (BEAKER) (test code 218 mg/dL 70-110 H = 652) HGB/HCT (H&H) - STAT [id number] 13:11:00 Test Item Value Reference Range Interpretation Comments HEMOGLOBIN (BEAKER) (test code = 9.9 g/dL 13.0-16.8 L 410) HEMATOCRIT (BEAKER) (test code = 29.0 % 40.0-50.0 L 411) SODIUM NA-STAT [id number] 13:09:00 Test Item Value Reference Range Interpretation Comments SODIUM (BEAKER) (test code = 381) 135 meq/L 135-148 POTASSIUM-STAT [id number] 13:09:00 Test Item Value Reference Range Interpretation Comments POTASSIUM (BEAKER) (test code = 5.3 meq/L 3.6-5.5 379) BLOOD GAS, [id number] 12:50:00 Test Item Value Reference Range Interpretation [...] (test code = 1819) 65.0 % GLUCOSE-STAT [id number] 12:50:00 Test Item Value Reference Range Interpretation Comments GLUCOSE RANDOM (BEAKER) (test code 208 mg/dL 70-110 H = 652) HGB/HCT (H&H) - STAT [id number] 12:50:00 Test Item Value Reference Range Interpretation Comments HEMOGLOBIN (BEAKER) (test code = 9.7 g/dL 13.0-16.8 L 410) HEMATOCRIT (BEAKER) (test code = 29.0 % 40.0-50.0 L 411) SODIUM NA-STAT [id number] 12:49:00 Test Item Value Reference Range Interpretation Comments SODIUM (BEAKER) (test code = 381) 135 meq/L 135-148 POTASSIUM-STAT [id number] 12:49:00 Test Item Value Reference Range Interpretation Comments POTASSIUM (BEAKER) (test code = 5.1 meq/L 3.6-5.5 379) BLOOD GAS, [id number] 12:23:00 Test Item Value Reference Range Interpretation [...] (test code = 1819) 80.0 % GLUCOSE-STAT [id number] 12:23:00 Test Item Value Reference Range Interpretation Comments GLUCOSE RANDOM (BEAKER) (test code 183 mg/dL 70-110 H = 652) HGB/HCT (H&H) - STAT [id number] 12:23:00 Test Item Value Reference Range Interpretation Comments HEMOGLOBIN (BEAKER) (test code = 9.7 g/dL 13.0-16.8 L 410) HEMATOCRIT (BEAKER) (test code = 29.0 % 40.0-50.0 L 411) SODIUM NA-STAT [id number] 12:22:00 Test Item Value Reference Range Interpretation Comments SODIUM (BEAKER) (test code = 381) 135 meq/L 135-148 POTASSIUM-STAT [id number] 12:22:00 Test Item Value Reference Range Interpretation Comments POTASSIUM (BEAKER) (test code = 4.7 meq/L 3.6-5.5 379) SODIUM NA-STAT [id number] 11:58:00 Test Item Value Reference Range Interpretation Comments SODIUM (BEAKER) (test code = 381) 136 meq/L 135-148 POTASSIUM-STAT [id number] 11:58:00 Test Item Value Reference Range Interpretation Comments POTASSIUM (BEAKER) (test code = 4.1 meq/L 3.6-5.5 379) BLOOD GAS, [id number] 11:58:00 Test Item Value Reference Range Interpretation [...] (test code = 1819) 100.0 % GLUCOSE-STAT [id number] 11:58:00 Test Item Value Reference Range Interpretation Comments GLUCOSE RANDOM (BEAKER) (test code 143 mg/dL 70-110 H = 652) HGB/HCT (H&H) - STAT [id number] 11:58:00 Test Item Value Reference Range Interpretation Comments HEMOGLOBIN (BEAKER) (test code = 10.9 g/dL 13.0-16.8 L 410) HEMATOCRIT (BEAKER) (test code = 32.0 % 40.0-50.0 L 411) BLOOD GAS, [id number] 11:57:00 Test Item Value Reference Range Interpretation [...] (test code = 1819) 100.0 % HEMOGLOBIN [id number] 10:26:00 Test Item Value Reference Range Interpretation Comments HEMOGLOBIN A1C (BEAKER) (test code = 5.2 % 4.3-6.1 368) PLATELET AGGREGATION: FUNCTION [id number] 09:03:00 Test Item Value Reference Range Interpretation Comments WEAK ADP 55 % 60-91 L RESULT(BEAKER) (test code = 2135) PLATELET FUNCTION 50-59% indicates mild SCREEN INTERP platelet dysfunction (BEAKER) (test code = 2173) [id number] Sam Ramírez MD (BEAKER) (test code = (electronic signature) 5342) PLATELET COUNT AGG 169 K/CU MM 150-450 (BEAKER) (test code = 2656) Platelet Function Screen results may be falsely low with platelet counts<100,000/cu mm.BLOOD GAS, [id number] 08:53:00 Test Item Value Reference Range Interpretation [...] 1819) 100.0 % HGB/HCT (H&H) - STAT [id number] 08:53:00 Test Item Value Reference Range Interpretation Comments HEMOGLOBIN (BEAKER) (test code = 12.7 g/dL 13.0-16.8 L 410) HEMATOCRIT (BEAKER) (test code = 37.0 % 40.0-50.0 L 411) CALCIUM, [id number] 08:53:00 Test Item Value Reference Range Interpretation Comments CALCIUM IONIZED (BEAKER) (test 1.05 mmol/L 1.12-1.27 L code = 698) PH, BLOOD (BEAKER) (test code = 7.48 1810) GLUCOSE-STAT [id number] 08:51:00 Test Item Value Reference Range Interpretation Comments GLUCOSE RANDOM (BEAKER) (test code 102 mg/dL 70-110 = 652) SODIUM NA-STAT [id number] 08:51:00 Test Item Value Reference Range Interpretation Comments SODIUM (BEAKER) (test code = 381) 138 meq/L 135-148 POTASSIUM-STAT [id number] 08:51:00 Test Item Value Reference Range Interpretation Comments POTASSIUM (BEAKER) (test code = 4.1 meq/L 3.6-5.5 379) URINALYSIS W/ [id number] 05:26:00 Test Item Value Reference Range Interpretation [...] 1584) SOURCE(BEAKER) (test code = Urine, Voided 8885) VITAMIN D, 22-[id number] 05:01:00 Test Item Value Reference Range Interpretation Comments VITAMIN D 25-OH (BEAKER) (test 24.8 ng/mL 6.6-49.9 code = 2764) Effective 06/19/2017: Reference Range ChangeNew: 6.6-49.9 ng/mL Previous: 13.0- 47.8 ng/mLRecommendedVitamin D Target Range: 30.0-40.0 ng/mLCREATININE, RANDOM [id number] 04:55:00 Test Item Value Reference Range Interpretation Comments CREATININE URINE (BEAKER) (test 68.3 mg/dL code = 375) Reference Range: No NormalsPROTEIN, RANDOM [id number] 04:55:00 Test Item Value Reference Range Interpretation Comments PROTEIN, URINE (BEAKER) (test code = 19 mg/dL 0-14 H 1569) PTH, [id number] 04:44:00 Test Item Value Reference Range Interpretation Comments PARATHYROID HORMONE INTACT 69.0 pg/mL 8.5-72.5 (BEAKER) (test code = 577) BASIC METABOLIC [id number] 04:41:00 Test Item Value Reference Range Interpretation [...] = 413) RAD, CHEST, 1 VIEW, NON [id number] 20:09:00Reason for exam:->Pre Op (ACB) ScreeninigShould this be performed at the bedside?->YesFINAL REPORT INDICATION: Pre Op (ACB) Screeninig COMPARISON: None TECHNIQUE: Sin gle frontal view of the chest. FINDINGS: Lungs and pleura: Clear lungs. No effusion.Heart and mediastinum: Normal heart size. Unremarkable mediastinal contours.Osseous structures: No acute abnormality.Other: None. IMPRESSION: No acute intrathoracic abnormality. Signed: Carmen Mcduffie MDReport Verified Date/Time: 12/04/2018 20:09:09 Reading Location: [facility] [id number] Neuro Reading Room [id number] 04:47:00 Test Item Value Reference Range Interpretation Comments PARTIAL THROMBOPLASTIN TIME 83.1 seconds 22.5-36.0 H (BEAKER) (test code = 760) [id number] 04:44:00 Test Item Value Reference Range Interpretation Comments MAGNESIUM (BEAKER) 2.3 mg/dL 1.6-2.6 Specimen slightly (test code = 627) hemolyzed BASIC METABOLIC [id number] 04:44:00 Test Item Value Reference Range Interpretation [...] (test code = 413) PLATELET AGGREGATION: DRUG [id number] 19:31:00 Test Item Value Reference Range Interpretation Comments STRONG ADP 67 % 70-94 L RESULT(BEAKER) (test code = 2137) WEAK ADP RESULT(BEAKER) 65 % 60-91 (test code = 2135) ARACHADONIC ACID 5 % 63-89 L RESULT(BEAKER) (test code = 2138) PLATELET AGG DRUG Normal response to INTERPRETATION (BEAKER) ADP suggests a lack (test code = 2408) of [id number] effect. PLATELET AGG DRUG Decreased response to INTERPRETATION (BEAKER) arachidonic acid (test code = 914167) suggests aspirin-like effect. [id number] Sandi Ovalle MD (BEAKER) (test code = (electronic 2621) signature) PLATELET COUNT AGG 163 K/CU MM 150-450 (BEAKER) (test code = 2657) Platelet aggregation results may be falsely low with platelet counts<100,000/CU [id number] 12:53:00 Test Item Value Reference Range Interpretation Comments PARTIAL THROMBOPLASTIN TIME 69.0 seconds 22.5-36.0 H (BEAKER) (test code = 760) BASIC METABOLIC [id number] 07:03:00 Test Item Value Reference Range Interpretation [...] S NOT APPLICABLE FOR DIALYSIS PATIEN TS. [id number] 06:52:00 Test Item Value Reference Range Interpretation [...] WBC 0-0 (BEAKER) (test code = 413) [id number] 00:34:00 Test Item Value Reference Range Interpretation Comments PARTIAL THROMBOPLASTIN TIME 56.8 seconds 22.5-36.0 H (BEAKER) (test code = 760) [id number] 16:56:00 Test Item Value Reference Range Interpretation Comments PARTIAL THROMBOPLASTIN TIME 54.7 seconds 22.5-36.0 H (BEAKER) (test code = 760) B-TYPE NATRIURETIC FACTOR (BNP)2018-12-02 09:39:00 Test Item Value Reference Range Interpretation Comments B-TYPE NATRIURETIC PEPTIDE 1056 pg/mL 0-100 H (BEAKER) (test code = 700) [id number] 09:17:00 Test Item Value Reference Range Interpretation Comments PARTIAL THROMBOPLASTIN TIME 39.8 seconds 22.5-36.0 H (BEAKER) (test code = 760) TROPONIN [id number] 04:45:00 Test Item Value Reference Range Interpretation [...] acute neurological disease, and persistent tachyarrhythmia.BASIC METABOLIC [id number] 04:29:00 Test Item Value Reference Range Interpretation [...] NOT APPLICABLE FOR DIALYSIS PATIEN TS. LIPID [id number] 04:29:00 Test Item Value Reference Range Interpretation Comments TRIGLYCERIDES (BEAKER) 137 mg/dL Speci men slightly (test code = 540) hemolyzed CHOLESTEROL (BEAKER) 174 mg/dL Specime n slightly (test code = 631) hemolyzed HDL CHOLESTEROL (BEAKER) 34 mg/dL (test code = 976) LDL CHOLESTEROL 113 mg/dL CALCULATED (BEAKER) (test code = 633) Triglyceride Reference Range: Low Risk <150 Borderline 150-199 High Risk 200- 499 Very High Risk >=500Cholesterol Reference Range: Low [...] WBC 0-0 (BEAKER) (test code = 413) [id number] 18:55:00 Test Item Value Reference Range Interpretation Comments ACTIVATED CLOTTING TIME [address] [facility] 6720 (BEAKER) (test code = JAMISON Fontanez [facility] 441) [address] COMPREHENSIVE METABOLIC [id number] 18:40:00 Test Item Value Reference Range Interpretation [...] S NOT APPLICABLE FOR DIALYSIS PATIEN TS. [id number] 18:31:00 Test Item Value Reference Range Interpretation Comments PROTIME (BEAKER) (test code = 14.6 seconds 11.7-14.7 759) INR (BEAKER) (test code = 370) 1.1 <=5.9 PARTIAL THROMBOPLASTIN TIME 38.0 seconds 22.5-36.0 H (BEAKER) (test code = 760) RECOMMENDED COUMADIN/WARFARIN INR THERAPY RANGESSTANDARD DOSE: 2.0 - 3.0 Includes: PROPHYLAXIS for venous thrombosis, systemic embolization; TREATMENT for venous thrombosis and/or pulmonary embolus.HIGH RISK: Target INR is 2.5-3.5 for patients with mechanical heart valves.PROTHROMBIN [id number] 18:30:00 Test Item Value Reference Range Interpretation Comments PROTIME (BEAKER) (test code = 14.6 seconds 11.7-14.7 759) INR (BEAKER) (test code = 370) 1.1 <=5.9 RECOMMENDED COUMADIN/WARFARIN INR THERAPY RANGESSTANDARD DOSE: 2.0 - 3.0 Includes: PROPHYLAXIS for venous thrombosis, systemic embolization; TREATMENT for venous thrombosis and/or pulmonary embolus.HIGH RISK: Target INR is 2.5-3.5 for patients with mechanical heart valves.CBC W/PLT COUNT & AUTO [id number] 18:27:00 Test Item Value Reference Range Interpretation [...] 417) IMMATURE GRANULOCYTES-RELATIVE 1 % 0-1 PERCENT (LINDA) (test code = 2801) [id number] 18:07:00 Test Item Value Reference Range Interpretation Comments ACTIVATED CLOTTING TIME 136 [address] [facility] 6720 (LINDA) (test code = JAMISON [facility]) [id number]
[2022-04-22] MEDS ORDERED: NA CHLORIDE 0.9% 1,000 ML ONE (16:52)
[2022-04-22] MEDS ORDERED: FOLIC ACID 5 MG/ML VIAL ONE (16:52)
--- NOTE | 2022-04-22 16:55 | RAD REPORT ---
EXAM DESCRIPTION: RAD - Chest Single View - 04/22/2022 4:44 pm CLINICAL HISTORY: COUGH Chest pain. COMPARISON: Chest Single View dated 05/01/2020; Chest Single View dated 11/22/2019; Chest Single View dated 11/12/2019; Abdomen 1 View (KUB) dated 07/26/2019 FINDINGS: Portable technique limits examination quality. The lungs are grossly clear. The heart is normal in size. No displaced fractures.Sternotomy wires. IMPRESSION: No acute intrathoracic process suspected.
--- NOTE | 2022-04-22 17:04 | RAD REPORT ---
EXAM DESCRIPTION: CT - Ct Stroke Brain Wo Cont - 04/22/2022 4:56 pm CLINICAL HISTORY: DIZZY Headache, drowsiness COMPARISON: Head Brain Wo Cont dated 07/31/2020; Head Brain Wo Cont dated 05/01/2020 TECHNIQUE: All CT scans are performed using dose optimization technique as appropriate and may inclu de automated exposure control or mA/KV adjustment according to patient size. FINDINGS: No intracranial hemorrhage, hydrocephalus or extra-axial fluid collection.Mild generalized brain atrophy is present with moderate periventricular and deep white matter chronic microvascular i schemic changes.No areas of brain edema or evidence of midline shift. The paranasal sinuses and mastoids are clear. The calvarium is intact. IMPRESSION: No acute intracranial abnormality. The findings were discussed with Dr Gonzalez in ER on 04/22/22 at 5 p.m. by telephone.
[2022-04-22 17:21] LABS: Absolute Lymphocytes (CBC) 0.9 K/uL (0.7-4.9); Hematocrit 36.7 % (39.6-49.0); MCV 92.5 fL (80-100); MPV 9.7 fL (7.6-11.3); RBC Red Blood Cell Count 3.97 M/uL (4.33-5.43)
[2022-04-22 17:24] LABS: Protime INR 1.2
[2022-04-22 17:37] LABS: SARS-CoV-2 Antigen Rapid Res Negative (Negative)
[2022-04-22 17:40] LABS: Albumin 3.3 g/dL (3.4-5.0); Bilirubin Direct 0.2 mg/dL (0-0.2); Bilirubin Total 0.5 mg/dL (0.2-1.0); Magnesium 2.2 mg/dL (1.8-2.4); Potassium 3.8 mmol/L (3.5-5.1); Troponin High Sensitivity 8.7 pg/mL (<58.9)
--- NOTE | 2022-04-22 18:19 | EDPHYS ---
Physician Documentation [facility] Name: Jason Johnson Age: 72 yrs Sex: Male : 1950 Arrival Date: 04/22/2022 Time: 16:02 Bed 13 Private MD: ED Physician Felipe Gonzalez HPI: 04/22 18:10 This 72 yrs old Male presents to ER via Ambulatory with complaints of denys Nausea/Vomiting, Dizziness. 18:10 The patient presents to the emergency department with nausea, vomiting, that is denys intermittent. Onset: The symptoms/episode began/occurred just prior to arrival. Possible causes: unknown. The symptoms are aggravated by nothing. The symptoms are alleviated by nothing. Associated signs and symptoms: Pertinent positives: nausea, vomiting. Severity of symptoms: At their worst the symptoms were moderate severe in the emergency department the symptoms have resolved and did so just prior to arrival. The patient has not experienced similar symptoms in the past. Historical: - Allergies: 16:09 No Known Allergies; ss - PMHx: 16:09 constipation; CVA; Hypertension; ss - Immunization history:: Client reports receiving the 2nd dose of the Covid vaccine. - Social history:: Smoking status: Patient denies any tobacco usage or history of. ROS: 18:11 Constitutional: Negative for fever, chills, and weight loss, Eyes: Negative for injury, denys pain, redness, and discharge, ENT: Negative for injury, pain, and discharge, Neck: Negative for injury, pain, and swelling, Cardiovascular: Negative for chest pain, palpitations, and edema, Respiratory: Negative for shortness of breath, cough, wheezing, and pleuritic chest pain, Abdomen/GI: Negative for abdominal pain, nausea, vomiting, diarrhea, and constipation, Back: Negative for injury and pain, : Negative for injury, bleeding, discharge, and swelling, MS/Extremity: Negative for injury and deformity, Psych: Negative for depression, anxiety, suicide ideation, homicidal ideation, and hallucinations, Allergy/Immunology: Negative for hives, rash, and allergies, Endocrine: Negative for neck swelling, polydipsia, polyuria, polyphagia, and marked weight changes. 18:11 Abdomen/GI: Positive for nausea and vomiting. 18:11 Skin: Positive for diaphoresis. 18:11 Neuro: Positive for dizziness, near syncope, weakness. Exam: 18:11 Constitutional: This is a well developed, well nourished patient who is awake, alert, denys and in no acute distress. Head/Face: Normocephalic, atraumatic. Eyes: Pupils equal round and reactive to light, extra-ocular motions intact. Lids and lashes normal. Conjunctiva and sclera are non-icteric and not injected. Cornea within normal limits. Periorbital areas with no swelling, redness, or edema. ENT: Nares patent. No nasal discharge, no septal abnormalities noted. Tympanic membranes are normal and external auditory canals are clear. Oropharynx with no redness, swelling, or masses, exudates, or evidence of obstruction, uvula midline. Mucous membranes moist. Neck: Trachea midline, no thyromegaly or masses palpated, and no cervical lymphadenopathy. Supple, full range of motion without nuchal rigidity, or vertebral point tenderness. No Meningismus. Chest/axilla: Normal chest wall appearance and motion. Nontender with no deformity. No lesions are appreciated. Respiratory: Lungs have equal breath sounds bilaterally, clear to auscultation and percussion. No rales, rhonchi or wheezes noted. No increased work of breathing, no retractions or nasal flaring. Abdomen/GI: Soft, non-tender, with normal bowel sounds. No distension or tympany. No guarding or rebound. No evidence of tenderness throughout. Back: No spinal tenderness. No costovertebral tenderness. Full range of motion. Male : Normal genitalia with no discharge or lesions. Skin: Warm, dry with normal turgor. Normal color with no rashes, no lesions, and no evidence of cellulitis. MS/ Extremity: Pulses equal, no cyanosis. Neurovascular intact. Full, normal range of motion. Neuro: Awake and alert, GCS 15, oriented to person, place, time, and situation. Cranial nerves II-XII grossly intact. Motor strength 5/5 in all extremities. Sensory grossly intact. Cerebellar exam normal. Normal gait. Psych: Awake, alert, with orientation to person, place and time. Behavior, mood, and affect are within normal limits. 18:11 Cardiovascular: Rate: bradycardic, actual rate is 49 bpm, Rhythm: regular, Pulses: Pulses are 4+ in bilateral radial, brachial, femoral, popliteal, posterior tibial and and dorsalis pedis arteries.. Heart sounds: normal, Edema: is not appreciated, JVD: is not appreciated. 18:11 ECG was reviewed by the Attending Physician. Vital Signs: 16:06 BP 138 / 92; Pulse 58; Resp 16; Pulse Ox 100% on R/A; Weight 88.45 kg; Height 6 ft. 2 ss in. (187.96 cm); Pain 0/10; 16:06 Temp 97.4(TE); ss 17:22 BP 129 / 86; Pulse 49; Resp 15; Pulse Ox 100% on R/A; hb 19:30 BP 153 / 81; Pulse 69; Resp 17; Pulse Ox 100% ; hb 20:45 BP 123 / 89; Pulse 58; Resp 17; Pulse Ox 98% ; hb 22:02 BP 145 / 99; Pulse 63; Resp 17; Pulse Ox 98% on R/A; hb 08/ 05:46 BP 144 / 87 Supine; Pulse 50; as6 05:48 BP 138 / 87 Sitting; Pulse 60; as6 05:50 BP 128 / 88 Standing; Pulse 69; as6 04/22 16:06 Body Mass Index 25.04 (88.45 kg, 187.96 cm) ss MDM: 04/22 16:06 Patient medically screened. denys 18:13 Differential diagnosis: Nonspecific abd pain, gastritis, pancreatitis, viral denys gastroenteritis, gastroenteritis. Differential Diagnosis: cardiac arrhythmia, emotional response, GI bleed, idiopathic syncope, , seizure, transient ischemic attack, vasovagal episode, cardiac arrhythmia, generalized weakness, GI bleed, head injury, hypovolemia, idiopathic dizziness, near-syncope, sepsis, syncope, TIA. Data reviewed: vital signs, nurses notes, lab test result(s), EKG, radiologic studies, CT scan, plain films. Data interpreted: youth nutritional monitor: rate is 49 beats/min, rhythm is regular, Pulse oximetry: on room air is 100 %. Test interpretation: by ED physician or midlevel provider: ECG, plain radiologic studies. Counseling: I had a detailed discussion with the patient and/or guardian regarding: the historical points, exam findings, and any diagnostic results supporting the discharge/admit diagnosis, lab results, radiology results, the need for further work-up and treatment in the hospital. 04/22 16:11 Order name: Basic Metabolic Panel; Complete Time: 17:48 denys 04/22 16:11 Order name: CBC with Diff; Complete Time: 17:48 [facility] 04/22 16:11 Order name: LFT's; Complete Time: 17:48 [facility] 04/22 16:11 Order name: Magnesium; Complete Time: 17:48 [facility] 04/22 16:11 Order name: NT PRO-BNP; Complete Time: 17:48 [facility] 04/22 16:11 Order name: PT-INR; Complete Time: 17:48 [facility] 04/22 16:11 Order name: Troponin HS; Complete Time: 17:48 [facility] 04/22 16:11 Order name: Lipase; Complete Time: 17:48 [facility] 04/22 16:11 Order name: SARS RAPID; Complete Time: 17:48 [facility] 04/22 23:26 Order name: Troponin High Sensitivity [facility] 04/23 00:52 Order name: CREATININE WHOLE BLOOD [facility] 04/23 04:43 Order name: Urine Dipstick-Ancillary [facility] 04/23 05:38 Order name: CBC with Automated Diff [facility] 04/22 16:11 Order name: XRAY Chest (1 view); Complete Time: 17:48 [facility] 04/22 16:11 Order name: EKG; Complete Time: 16:13 [facility] 04/22 16:11 Order name: Cardiac monitoring; Complete Time: 17:21 [facility] 04/22 16:11 Order name: CT Stroke Brain w/o Contrast [facility] 04/22 16:17 Order name: Ct Stroke Brain Wo Cont; Complete Time: 17:48 [facility] 04/22 18:01 Order name: US Carotid Artery Bilateral [facility] 04/23 05:55 Order name: Comprehensive Metabolic Panel [facility] 04/23 05:55 Order name: Troponin High Sensitivity [facility] 04/23 05:55 Order name: T4 Free [facility] 04/23 05:55 Order name: Thyroid Stimulating Hormone [facility] 04/22 16:11 Order name: EKG - Nurse/Tech; Complete Time: 17:21 [facility] 04/22 16:11 Order name: IV Saline Lock; Complete Time: 17:21 [facility] 04/22 16:11 Order name: Labs collected and sent; Complete Time: 17:21 [facility] 04/22 16:11 Order name: O2 Per Protocol; Complete Time: 17:21 [facility] 04/22 16:11 Order name: O2 Sat Monitoring; Complete Time: 17:21 [facility] 04/22 16:11 Order name: Urine Dipstick-Ancillary (obtain specimen); Complete Time: 04:42 denys 04/22 18:28 Order name: Orthostatics; Complete Time: 05:57 la1 EC:11 Rate is 49 beats/min. Rhythm is regular. QRS [place] is Normal. SD interval is normal. QRS denys interval is normal. QT interval is normal. No Q waves. T waves are Normal. No ST changes noted. Clinical impression: Sinus bradycardia and No evidence of ischemia. Interpreted by me. Reviewed by me. Administered Medications: 17:21 Drug: foLIC Acid 1 mg Route: IVPB; Site: right antecubital; hb 17:21 Drug: NS 0.9% 1000 ml Route: IV; Rate: 1 bolus; Site: right antecubital; hb 20:30 Drug: Aspirin 81 mg Route: PO; hb 20:30 Drug: Pepcid (famotidine) 20 mg Route: IVP; Site: right antecubital; hb Disposition Summary: 04/22/22 18:18 Hospitalization Ordered Hospitalization Status: Observation denys Provider: Nancy Bridges cha Condition: Stable denys Problem: new denys Symptoms: have improved denys Bed/Room Type: Standard denys Location: [facility] ER HOLD(04/22/22 20:00) Room Assignment: ERHOLD-(04/22/22 20:00) Diagnosis - Syncope Near denys - Acute kidney failure, unspecified - on chronic denys - Bradycardia, unspecified denys Forms: - Medication Reconciliation Form denys - SBAR form denys Signatures: Dispatcher [employer] EDDesi Clark RN RN dw Anderson, Corey, MD MD cha Smirch, Shelby RN RN Solo Campbell, PHOTO STYLIST-C PHOTO STYLIST-[facility]1 Lana Cole RN RN Corrections: (The following items were deleted from the chart) 17:08 16:19 Head Angio+CT.RAD.BRZ ordered. EDMS EDMS 17:09 16:21 Neck Angio+CT.RAD.BRZ ordered. EDMA EDMS 20:00 18:18 Telemetry/MedSurg (observation) denys dw 20:00 18:18 denys dw
--- NOTE | 2022-04-22 18:19 | ER ---
Nurse's Notes [facility] Name: Jason Johnson Age: 72 yrs Sex: Male : 1950 Arrival Date: 04/22/2022 Time: 16:02 Bed 13 Private MD: Diagnosis: Syncope Near;Acute kidney failure, unspecified-on chronic;Bradycardia, unspecified Presentation: 04/22 16:06 Chief complaint: EMS states: Eating at [employer] when patient had a sudden onset of ss dizziness. Upon arrival, EMS reports that he was diaphoretic, dizzy and had vomited x1. En route to ED, patients symptoms resolved. Coronavirus screen: Client denies travel out of the [place] in the last 14 days. Ebola Screen: Patient denies exposure to infectious person. Patient denies travel to an Ebola-affected area in the 21 days before illness onset. Initial Sepsis Screen: Does the patient meet any 2 criteria? No. Patient's initial sepsis screen is negative. Does the patient have a suspected source of infection? No. Patient's initial sepsis screen is negative. Risk Assessment: Do you want to hurt yourself or someone else? Patient reports no desire to harm self or others. Onset of symptoms was April 22, 2022. 16:06 Method Of Arrival: Ambulatory ss 16:06 Acuity: NINA 2 ss Historical: - Allergies: 16:09 No Known Allergies; ss - PMHx: 16:09 constipation; CVA; Hypertension; ss - Immunization history:: Client reports receiving the 2nd dose of the Covid vaccine. - Social history:: Smoking status: Patient denies any tobacco usage or history of. Screenin:21 Abuse screen: Denies threats or abuse. Denies injuries from another. Nutritional hb screening: No deficits noted. Tuberculosis screening: No symptoms or risk factors identified. Fall Risk. Assessment: 17:22 General: Appears in no apparent distress. Behavior is calm, cooperative. Pain: Denies hb pain. Neuro: Level of Consciousness is awake, alert, obeys commands, Oriented to person, place, time, situation. Cardiovascular: Patient's skin is warm and dry. Respiratory: Respiratory effort is even, unlabored, Respiratory pattern is regular, symmetrical. GI: Reports nausea. : No signs and/or symptoms were reported regarding the genitourinary system. EENT: No signs and/or symptoms were reported regarding the EENT system. Derm: Skin is pink, warm \T\ dry. Musculoskeletal: No signs and/or symptoms reported regarding the musculoskeletal system. 19:30 Reassessment: Patient appears in no apparent distress at this time. Patient and/or hb family updated on plan of care and expected duration. Pain level reassessed. Patient is alert, oriented x 3, equal unlabored respirations, skin warm/dry/pink. 20:30 Reassessment: Patient appears in no apparent distress at this time. Patient and/or hb family updated on plan of care and expected duration. Pain level reassessed. Patient is alert, oriented x 3, equal unlabored respirations, skin warm/dry/pink. 22:07 Reassessment: Patient appears in no apparent distress at this time. Patient and/or hb family updated on plan of care and expected duration. Pain level reassessed. Patient is alert, oriented x 3, equal unlabored respirations, skin warm/dry/pink. Vital Signs: 16:06 BP 138 / 92; Pulse 58; Resp 16; Pulse Ox 100% on R/A; Weight 88.45 kg; Height 6 ft. 2 ss in. (187.96 cm); Pain 0/10; 16:06 Temp 97.4(TE); ss 17:22 BP 129 / 86; Pulse 49; Resp 15; Pulse Ox 100% on R/A; hb 19:30 BP 153 / 81; Pulse 69; Resp 17; Pulse Ox 100% ; hb 20:45 BP 123 / 89; Pulse 58; Resp 17; Pulse Ox 98% ; hb 22:02 BP 145 / 99; Pulse 63; Resp 17; Pulse Ox 98% on R/A; hb 08 05:46 BP 144 / 87 Supine; Pulse 50; as6 05:48 BP 138 / 87 Sitting; Pulse 60; as6 05:50 BP 128 / 88 Standing; Pulse 69; as6 04/22 16:06 Body Mass Index 25.04 (88.45 kg, 187.96 cm) ED Course: 04/22 16:02 Patient arrived in ED. ss 16:06 Felipe Gonzalez MD is Attending Physician. [facility] 16:09 Triage completed. 16:09 Arm band placed on right wrist. 16:42 Lana Cole, JAVI is Primary Nurse. hb 16:45 XRAY Chest (1 view) In Process Unspecified. EDMS 16:58 Ct Stroke Brain Wo Cont In Process Unspecified. EDMS 17:21 Patient has correct armband on for positive identification. hb 17:21 Maintain EMS IV. Dressing intact. Good blood return noted. Site clean \T\ dry. Gauge \T\ hb site: 20g RAC. 18:17 Nancy Bridges MD is Hospitalizing Provider. denys 18:46 US Carotid Artery Bilateral In Process Unspecified. EDMS 22:07 No provider procedures requiring assistance completed. Patient admitted, IV remains in hb place. Administered Medications: 17:21 Drug: foLIC Acid 1 mg Route: IVPB; Site: right antecubital; hb 17:21 Drug: NS 0.9% 1000 ml Route: IV; Rate: 1 bolus; Site: right antecubital; hb 20:30 Drug: Aspirin 81 mg Route: PO; hb 20:30 Drug: Pepcid (famotidine) 20 mg Route: IVP; Site: right antecubital; hb Medication: 17:22 VIS not applicable for this client. hb Outcome: 18:18 Decision to Hospitalize by Provider. denys 22:07 Admitted to ER Hold. Please see [facility] for further documentation. hb 22:07 Condition: stable 22:07 Instructed on the need for admit, Demonstrated understanding of instructions. 04/23 13:54 Patient left the ED. [email or web address] Signatures: Dispatcher [employer] EDFelipe Vallejo MD MD cha Smirch, Shelby, RN RN Lana Cole RN RN Miguel Garcia RN RN as6 Joanna Green RN RN [id number]
--- NOTE | 2022-04-22 19:17 | P.HP ---
Certification for Inpatient Patient admitted to: Observation With expected LOS: <2 Midnights Patient will require the following post-hospital care: None Practitioner: I am a practitioner with admitting privileges, knowledge of patient current condition, hospital course, and medical plan of care. Services: Services provided to patient in accordance with Admission requirements found in Title 42 Section 412.3 of the Code of Federal Regulations <Solo Campbell - Last Filed: 04/22/22 19:13> Patient History Date of Service: 04/22/22 History of Present Illness: 72-year-old male with history of CVA, CAD status post CABG, hypertension presents the emergency department for near syncope. He reports he was at a restaurant finishing up his meal in a seated position when he began to experience lightheadedness and felt as if he was going pass out, he says he does not remember vomiting but members waking up surrounded by vomit. Leading up to this event he did not experience any headache, chest pain, palpitations or shortness of breath. He has had similar episodes in the past in 2019 he was evaluated here for syncope he had echocardiogram, EEG, MRI of his brain at the time which did not reveal any significant findings. He was evaluated here in the emergency department his labs were significant for stable CKD 3, mildly elevated BNP at 512 CT brain without contrast negative for acute findings chest x-ray no acute intrathoracic process suspected, carotid artery ultrasound ordered by ED provider and pending. Patient mildly bradycardic with rate in the low 50s in the emergency department sinus bradycardia he is on carvedilol at home. ED provider wishes to admit under observation for syncope. - Past Medical/Surgical History Diabetic: No -: CVA -: HTN -: CKD 3 -: nava Hip FX -: broken ankle R -: CAD status post CABG -: tonsillectomy -: nava reconstructive hip SX -: SX R ankle with pins -: CABG Psychosocial/ Personal History: Patient lives at home, alone is retired. - Family History Family History: Reviewed- Non-Contributory - Social History Smoking Status: Never smoker Alcohol use: No CD- Drugs: No Caffeine use: Yes Place of Residence: Home <Solo Campbell - Last Filed: 04/22/22 19:13> Date of Service: 04/23/22 <Elvis Jones - Last Filed: 04/23/22 13:49> Allergies No Known Drug Allergies Allergy (Verified 07/26/19 19:32) Unknown Home Medications: Aspirin 2 tab PO DAILY 06/14/18 Clopidogrel Bisulfate [Plavix*] 75 mg PO DAILY tablet 12/23/18 Docusate/Senna [Senokot-S*] 2 tab PO BEDTIME tab 12/23/18 Ferrous Sulfate [Ferrous Sulfate*] 325 mg PO DAILY tab 12/23/18 Linaclotide [Linzess] 290 mcg PO DAILY 06/10/19 L.acidoph,Paracasei, B.lactis [Probiotic] 1 cap PO BREAKFAST 07/26/19 Multivit with Iron,Minerals [Spectravite Senior] 1 tab PO DAILY 07/26/19 [place]epraz[place] [address]/26/19 Betamethasone/Propylene Glyc [Betamethasone Dp Aug 0.05% Crm] 1 liberty TOP TID PRN 07/31/20 Amlodipine Besylate [Norvasc] 5 mg PO DAILY #30 tablet 08/01/20 Atorvastatin Calcium [Lipitor] 80 mg PO DAILY #30 tablet 08/01/20 Review of Systems 10-point ROS is otherwise unremarkable Cardiovascular: Light Headedness, Other (Syncope), As per HPI Gastrointestinal: Vomiting <Solo Campbell - Last Filed: 04/22/22 19:13> Physical Examination - Physical Exam General: Alert, In no apparent distress, Oriented x3 HEENT: Atraumatic, PERRLA, Mucous membr. moist/pink, EOMI, Sclerae nonicteric Neck: Supple, 2+ carotid pulse no bruit, No LAD, Without JVD or thyroid abnormality Respiratory: Clear to auscultation bilaterally, Normal air movement Cardiovascular: Regular rate/rhythm, Normal S1 S2 Capillary refill: <2 Seconds Gastrointestinal: Normal bowel sounds, No tenderness Musculoskeletal: No tenderness Integumentary: No rashes Neurological: Normal speech, Normal strength at 5/5 x4 extr, Normal tone, Normal affect - Studies Laboratory Data (last 24 hrs) 04/22/22 17:07: PT 13.2 H, INR 1.20 04/22/22 17:07: WBC 6.3, Hgb 12.0 L, Hct 36.7 L, Plt Count 165 04/22/22 17:07: Sodium 142, Potassium 3.8, BUN 20 H, Creatinine 1.79 H, Glucose 149 H, Magnesium 2.2, Total Bilirubin 0.5, AST 12 L, ALT 16, Alkaline Phosphatase 73, Lipase 67 L <Solo Campbell - Last Filed: 04/22/22 19:13> - Studies Laboratory Data (last 24 hrs) 04/22/22 17:07: PT 13.2 H, INR 1.20 04/22/22 17:07: WBC 6.3, Hgb 12.0 L, Hct 36.7 L, Plt Count 165 04/22/22 17:07: Sodium 142, Potassium 3.8, BUN 20 H, Creatinine 1.79 H, Glucose 149 H, Magnesium 2.2, Total Bilirubin 0.5, AST 12 L, ALT 16, Alkaline Phosphatase 73, Lipase 67 L <Elvis Jones - Last Filed: 04/23/22 13:49> Assessment and Plan - Plan Assessment: Syncope History of CAD S/P CABG History of CVA Hypertension Hyperlipidemia CKD 3 Plan: Syncope: Patient with a few similar episodes in the past unremarkable work-up previously with MRI, EEG, echocardiogram. Patient is noted to be mildly bradycardic with a rate in the 50s he does take carvedilol at home, will hold carvedilol at this time, monitor on telemetry throughout hospitalization, trend troponins and obtain echocardiogram as previous one was about 2 years ago. Patient denied any chest pain, palpitations, headache or shortness of breath. Initial troponin negative. History of CAD S/P CABG: Continue as above, continue medications aspirin/Plavix History of CVA: Continue home medications Hypertension: Hold carvedilol given bradycardia, patient unsure of home medications will evaluate once verified. Hyperlipidemia: Continue atorvastatin CKD 3: Stable, continue gentle IV fluid. DVT PPX: Heparin Code status: Full Discharge Plan: Home Plan to discharge in: 24 Hours - Advance Directives Does patient have a Living Will: No Does patient have a Durable POA for Healthcare: No - Code Status/Comfort Care Code Status Assessed: Yes (Full code) Critical Care: No Time Spent Managing Pts Care (In Minutes): 70 <Solo Campbell - Last Filed: 04/22/22 19:13> Physician Review: Patient Assessed, Agree with Above Assessment and Plan <Elvis Jones - Last Filed: 04/23/22 13:49>
--- NOTE | 2022-04-22 19:43 | RAD REPORT ---
EXAM DESCRIPTION: US - CP - 04/22/2022 6:44 pm CLINICAL HISTORY: Dizziness Headache, drowsiness, dizziness COMPARISON: Carotid Artery Bilateral dated 07/26/2019 TECHNIQUE: Real-time sonographic evaluation of both carotid systems was performed. Doppler interroga tion was performed with waveform tracing bilaterally. FINDINGS: Normal high resistance waveforms are noted in both external carotid arteries. The common c arotid arteries and internal carotid arteries show normal low resistance waveforms. Moderate hard plaque is present in both carotid bulbs. Peak systolic and end diastolic velocity value s and the ICA/CCA ratios are in the non-hemodynamically significant range. Antegrade flow seen in both vertebral arteries. IMPRESSION: Moderate hard plaque is seen in both carotid bulbs. No evidence of a hemodynamically significant stenosis.
[2022-04-22] MEDS ORDERED: ASPIRIN 81 MG CHEWABLE TABLET ONE (21:43)
[2022-04-22] MEDS ORDERED: FAMOTIDINE 20 MG/2 ML VIAL IV ONE (21:44)
[2022-04-22] MEDS: HEPARIN 5000 UNIT/ML 1 ML VIAL SQ SCH (22:13)
[2022-04-22] MEDS ORDERED: ACETAMINOPHEN 500 MG TAB PO PRN (22:13)
[2022-04-22] MEDS ORDERED: ATORVASTATIN 40 MG TAB PO SCH (22:13)
[2022-04-22] MEDS ORDERED: ONDANSETRON 4 MG/2 ML VIAL IV PRN (22:13)
[2022-04-22] MEDS: Ringers Lactate 1,000 ML IV SCH (22:13)
[2022-04-22 22:17] VITALS: BMI 25.0
[2022-04-22] MEDS ORDERED: HEPARIN 5000 UNIT/ML 1 ML VIAL ONE (23:23)
[2022-04-22] MEDS ORDERED: ATORVASTATIN 20 MG TAB ONE (23:24)
[2022-04-22] MEDS ORDERED: Ringers Lactate 1,000 ML IV ONE (23:24)
[2022-04-23 04:43] LABS: Urine Blood Negative (Negative); Urine Glucose Negative (Negative); Urine Protein Trace (Negative); Urine pH 6.5 (5.0-7.0)
[2022-04-23 05:28] LABS: Absolute Lymphocytes (CBC) 1.7 K/uL (0.7-4.9); Hematocrit 32.9 % (39.6-49.0); Lymphocytes % 27.4 % (15.3-44.8); MCV 89.8 fL (80-100); MPV 9.6 fL (7.6-11.3); RBC Red Blood Cell Count 3.67 M/uL (4.33-5.43)
[2022-04-23 05:55] LABS: Bilirubin Total 0.5 mg/dL (0.2-1.0); Potassium 3.8 mmol/L (3.5-5.1); Protein, Total 6.3 g/dL (6.4-8.2); Thyroid Stimulating Hormone 2.47 uIU/mL (0.360-3.740); Troponin High Sensitivity 11.3 pg/mL (<58.9)
[2022-04-23] MEDS ORDERED: CLOPIDOGREL 75 MG TABLET PO SCH (09:00)
[2022-04-23] MEDS: HEPARIN 5000 UNIT/ML 1 ML VIAL SQ SCH (09:00)
[2022-04-23] MEDS ORDERED: ASPIRIN EC 81 MG TAB PO SCH (09:00)
[2022-04-23] MEDS ORDERED: CLOPIDOGREL 75 MG TABLET ONE (09:20)
[2022-04-23] MEDS ORDERED: ASPIRIN EC 81 MG TAB PO ONE (09:20)
[2022-04-23] MEDS ORDERED: HEPARIN 5000 UNIT/ML 1 ML VIAL ONE (09:20)
[2022-04-23] MEDS: Ringers Lactate 1,000 ML IV SCH (11:33)
--- NOTE | 2022-04-23 13:41 | P.DS ---
Admission Date: 04/22/22 Discharge Date: 04/23/22 Disposition: ROUTINE DISCHARGE Discharge Condition: GOOD Reason for Admission: Pre-Syncope Hospital Course: DIAGNOSES: # Pre-Syncope, suspect Vasovagal # History of Coronary Artery Disease s/p CABG # History of Cerebrovascular Accident # Moderate Bilateral Carotid Bulb Plaques in the "Non-Hemodynamically Significant Range" # Chronic Kidney Disease Stage III # Hypertension # Hyperlipidemia HOSPITAL COURSE: Mr. Jason Johnson is a pleasant 72 year old male with a past medical history significant for coronary artery disease s/p CABG, chronic kidney disease stage III, hypertension, hyperlipidemia, and prior cerebrovascular accident who was admitted to the [facility] on 04/22/2022 for pre- syncope. He was admitted to the Medicine Service for further evaluation. Upon my interview, he denies ever losing consciousness or experiencing head trauma. His evaluation revealed negative orthostatic vital signs and flat serial troponin levels. A CT head revealed, "no acute intracranial abnormality." Transthoracic echocardiogram formal read is pending, but I reviewed it with Dr. Douglass, who stated that the ejection fraction was normal and there was moderate aortic valve sclerosis without stenosis. Since admission, he has not had any recurrent episodes and ambulated around the nursing station with the nursing staff, without any issues. On 04/23/2022, he was seen on rounds and deemed medically stable for discharge. He was discharged with instructions to schedule a follow-up appointment with his PCP in 3-5 days. He was given the opportunity to ask questions and reported no further questions. Furthermore, all questions were answered to the best of my ability. Today, I personally spent 20 minutes on his case, of which greater than 50% of the time was spent in patient education, counseling, and coordination of care as described above. Vital Signs/Physical Exam: Temp Pulse Resp BP Pulse Ox 51 17 131/89 96 04/23/22 12:00 04/23/22 12:00 04/23/22 12:00 04/23/22 12:00 General: Alert, In no apparent distress, Oriented x3 HEENT: Atraumatic, PERRLA, Mucous membr. moist/pink, EOMI, Sclerae nonicteric Neck: Supple, JVD not distended Respiratory: Clear to auscultation bilaterally, Normal air movement Cardiovascular: No edema, Regular rate/rhythm, Normal S1 S2, No gallops, No rubs, No murmurs Gastrointestinal: Normal bowel sounds, Soft and benign, Non-distended, No tenderness, No rebound, No guarding Musculoskeletal: No clubbing Integumentary: No rashes Neurological: Normal gait, Normal strength at 5/5 x4 extr, Cranial nerves 3-12 intact, Normal affect Laboratory Data at Discharge: WBC 6.4 K/uL (4.3-10.9) 04/23/22 05:17 Hgb 11.3 g/dL (13.6-17.9) L 04/23/22 05:17 Hct 32.9 % (39.6-49.0) L 04/23/22 05:17 Plt Count 151 K/uL (152-406) L 04/23/22 05:17 PT 13.2 SECONDS (9.5-12.5) H 04/22/22 17:07 INR 1.20 04/22/22 17:07 Sodium 143 mmol/L (136-145) 04/23/22 05:17 Potassium 3.8 mmol/L (3.5-5.1) 04/23/22 05:17 BUN 19 mg/dL (7-18) H 04/23/22 05:17 Creatinine 1.68 mg/dL (0.55-1.3) H 04/23/22 05:17 Glucose 83 mg/dL (74-106) 04/23/22 05:17 Magnesium 2.2 mg/dL (1.8-2.4) 04/22/22 17:07 Total Bilirubin 0.5 mg/dL (0.2-1.0) 04/23/22 05:17 AST 13 U/L (15-37) L 04/23/22 05:17 ALT 14 U/L (12-78) 04/23/22 05:17 Alkaline Phosphatase 68 U/L (45-117) 04/23/22 05:17 Lipase 67 U/L (73-393) L 04/22/22 17:07 Home Medications: Aspirin 2 tab PO DAILY 06/14/18 Clopidogrel Bisulfate [Plavix*] 75 mg PO DAILY tablet 12/23/18 Docusate/Senna [Senokot-S*] 2 tab PO BEDTIME tab 12/23/18 Ferrous Sulfate [Ferrous Sulfate*] 325 mg PO DAILY tab 12/23/18 Linaclotide [Linzess] 290 mcg PO DAILY 06/10/19 L.acidoph,Paracasei, B.lactis [Probiotic] 1 cap PO BREAKFAST 07/26/19 Multivit with Iron,Minerals [Spectravite Senior] 1 tab PO DAILY 07/26/19 Omeprazole 40 mg PO 0630 07/26/19 Betamethasone/Propylene Glyc [Betamethasone Dp Aug 0.05% Crm] 1 liberty TOP TID PRN 07/31/20 Amlodipine Besylate [Norvasc] 5 mg PO DAILY #30 tablet 08/01/20 Atorvastatin Calcium [Lipitor] 80 mg PO DAILY #30 tablet 08/01/20 Physician Discharge Instructions: 1. Please schedule a follow-up with your PCP in 3-5 days Diet: Regular Activity: Ad sada Followup: NONE,NONE [Primary Care Provider] - Time spent managing pt's care (in minutes): 20
--- NOTE | 2022-04-23 14:16 | ECHO ---
HEIGHT: 6 ft 2 in WEIGHT: 195 lb 0 oz DATE OF STUDY: 04/23/[address]: Solo Campbell NP 2-DIMENSIONAL: YES M.MODE: YES DOPPLER: YES COLOR FLOW: YES TDS: YES PORTABLE: NO DEFINITY: NO BUBBLE STUDY: NO DIAGNOSIS: SYNCOPE CARDIAC HISTORY: CATHERIZATION: SURGERY: PROSTHETIC VALVE: PACEMAKER: MEASUREMENTS (cm) DIASTOLIC (NORMALS) SYSTOLIC (NORMALS) IVSd 1.1 (0.6-1.2) LA Diam 3.5 (1.9-4.0) LVEF 55-60% LVIDd 5.7 (3.5-5.7) LVIDs 4.1 (2.0-3.5) %FS 28% LVPWd 1.0 (0.6-1.2) Ao Diam 2.9 (2.0-3.7) 2 DIMENSIONAL ASSESSMENT: RIGHT ATRIUM: NORMAL LEFT ATRIUM: NORMAL RIGHT VENTRICLE: NORMAL LEFT VENTRICLE: NORMAL TRICUSPID VALVE: MILD TRICUSPID REGURGITATION MITRAL VALVE: MILD MITRAL REGURGITATION PULMONIC VALVE: NORMAL AORTIC VALVE: CALCIFIED AORTIC VALVE, NO AORTIC STENOSIS PERICARDIAL EFFUSION: NONE AORTIC ROOT: NORMAL LEFT VENTRICULAR WALL MOTION: NORMAL. DOPPLER/COLOR FLOW: SEE BELOW. COMMENTS: NORMAL LEFT VENTRICULAR EJECTION FRACTION 55-60% WITH NORMAL WALL MOTION. CALCIFIED AORTIC VALVE, NO AORTIC STENOSIS. MILD MITRAL REGURGITATION. MILD TRICUSPID REGURGITATION. TECHNOLOGIST: BECKY KELLER
[2022-04-23 14:34] VITALS: TEMP 97.4
[2022-04-23 14:40] VITALS: O2SAT 98
[2022-04-23 14:50] VITALS: BP 128/88
--- NOTE | 2022-04-24 08:18 | EKG ---
Test Date: 2022-04-22 Test Time: 17:17:09 Credit Department Manager: HB MEASUREMENT RESULTS: Intervals: Rate: 78 [place]: QRSD: 84 QT: 436 QTc: 497 [place]: P: [place]: QRS: -13 T: 132 INTERPRETIVE STATEMENTS: Undetermined rhythm ST & T wave abnormality, consider lateral ischemia Prolonged QT Abnormal ECG Compared to ECG 07/31/2020 13:38:23 ST (T wave) deviation now present Possible ischemia now present Prolonged QT interval now present Sinus bradycardia no longer present First degree AV block no longer present Myocardial infarct finding no longer present Electronically Signed On 04-24-22 08:11:46 CDT by Michael Laguna
--- NOTE | 2022-04-24 08:18 | EKG ---
Test Date: 2022-04-22 Test Time: 17:17:41 Assistant Fitness Manager: HB MEASUREMENT RESULTS: Intervals: Rate: 52 RI: 202 QRSD: 86 QT: 458 QTc: 425 [place]: P: 115 RI: 202 QRS: -15 T: 3 INTERPRETIVE STATEMENTS: Sinus bradycardia Otherwise normal ECG Compared to ECG 04/22/2022 17:17:09 ST (T wave) deviation no longer present Possible ischemia no longer present Prolonged QT interval no longer present Electronically Signed On 04-24-22 08:11:45 CDT by Michael Laguna
== END 2022-04-23 13:55 | disposition home or self-care (01) ==
LOC: ER 15:50 → ERHOLD 19:03
PROVIDERS: ADMIT Hospitalist; ATTEND Internal Medicine
DX: R55 Syncope and collapse (principal); I25.10 Atherosclerotic heart disease of native coronary artery without angina pectoris; I12.9 Hypertensive chronic kidney disease with stage 1 through stage 4 chronic kidney disease, or unspecified chronic kidney disease; N18.30 Chronic kidney disease, stage 3 unspecified; I65.23 Occlusion and stenosis of bilateral carotid arteries; R00.1 Bradycardia, unspecified; E78.5 Hyperlipidemia, unspecified; Z95.1 Presence of aortocoronary bypass graft; Z86.73 Personal history of transient ischemic attack (TIA), and cerebral infarction without residual deficits; Z20.822 Contact with and (suspected) exposure to COVID-19
CPT/HCPCS: 93005 ×2; 93306; 85025 ×2; 80048; 36415; 83735; 85610; 82565; 80076; 84443; 81003; 84484 ×3; 84439; 83690; 80053; 83880; 70450; 71045; 93880; 96375; 96374; 99285; 87811; J1644 ×2; J7120; J7030; G0378 ×3

== ENCOUNTER 2022-06-29 18:35 | Observation (INO) | payer OTHER ==
--- OUTSIDE RECORDS SUMMARY | 2022-06-29 18:40 | XMS REPORT | Continuity of Care Document ---
:1950 Author Organization [facility] t Address [address] [place] [address] Care Team Providers Name Role Phone CECILY ROSALES Primary Care Physician Unavailable Veronique Hernandez Attending Clinician Unavailable MIGUEL FRANKLIN Attending Clinician Unavailable MIGUEL FRANKLIN Admitting Clinician Unavailable Payers Payer Name Policy Type Policy Number Effective Date Expiration Date S amarilis AETNA MEDICARE C1 [id number] [facility] MEDICARE MB [id number] [facility] NOVITAS [facility] Problems Condition Condition Condition Status Onset Resolution Last Treating Co mments Source Name Details Category Date Date Treatment Clinician Date Complete Complete Disease [facility] Center NSTEMI NSTEMI Disease Active [facility] elevated elevated 00:00: Medica l myocardial myocardial 00 Ce nter infarction infarction ) ) CKD CKD Disease Active Overview: [facility] ([facility]ronic (chronic 09-09 [facility] kidney kidney 00:00: g of this Medical disease) disease) 00 note Center stage 3, stage 3, might be GFR 30-59 GFR 30-59 different ml/min ml/min from the original. Baseline creatinin e ~ 2-2.2 History of History of Disease Active [facility] CVA CVA 09-09 [facility] (cerebrova (cerebrova 00:00: Me dical scular scular 00 Center accident) accident) [id number] Arthritis Problem Active Co mmon [id number] of knee, Spirit left - [facility] Allergies, Adverse Reactions, Alerts Allergy Allergy Status Severity Reaction(s) Onset Inactive Treating Comm ents Source Name Type Date Date Clinician NO KNOWN Allergy Active [facility] Social History Social Habit Start Date Stop Date Quantity Comments Source History [facility] Alcohol Std Drinks Medica l Center History [facility] Alcohol Binge Medical Koki ter History [facility] Alcohol Comment Medical C enter History of Tobacco Light tobacco Com mon Spirit - Use smoker [facility] Alcohol intake 2018-12-08 2018-12-[address] [facility] [address] Taryn es 00:00:00 00:00:00 non-drinker of Medical Ce nter alcohol (finding) Tobacco use and 2018-12-01 2018-12-01 Current user [facility] exposure 00:00:00 00:00:00 Medical Center History SDOH 2018-12-01 2018-12-[address] [facility] [address] kes Alcohol Frequency 00:00:00 00:00:00 [facility] Sex Assigned At [birth year] [facility] 00:00:00 00:00:00 [facility] Smoking Status Start Date Stop Date Source Light tobacco smoker 2021-06-15 00:00:00 [facility] Never smoker [facility] Medications Ordered Filled Start Stop Current Ordering Indication Dosage Frequency Signature Comments Components Source Medication Medication Date Date Medication? Clinician (SIG) Name Name pantoprazol Yes 40mg QD Take [address] [facility] [address] e 4-06 tablet (40 [facility] (PROTONIX) 00:00: mg total) Me dical 40 MG 00 by mouth Center tablet daily. amLODIPine amLODIPine No amLODIPine Besylate Besylate Besylate Omeprazole Omeprazole No Omeprazole Aspirin Aspirin No Aspirin Clopidogrel Clopidogrel No Clopidogre Bisulfate Bisulfate l Bisulfate Irbesartan Irbesartan No Irbesartan Linzess Linzess No Linzess Atorvastati Atorvastati No Atorvastat n Calcium n Calcium in Calcium Terbinafine Terbinafine No Terbinafin HCl HCl e HCl Vital Signs Vital Name Observation Time Observation Value Comments Source height 2021-06-15 08:30:00 74 [in_i] [facility] weight 2021-06-15 08:30:00 186.1 [lb_av] [facility] temperature 2021-06-15 08:30:00 97.1 [degF] [facility] bmi 2021-06-15 08:30:00 23.89 kg/m2 [facility] blood pressure 2021-06-15 08:30:00 132 mm[Hg] [facility] systolic [facility] blood pressure 2021-06-15 08:30:00 84 mm[Hg] [facility] - diastolic [facility] Procedures This patient has no known procedures. Encounters Start End Encounter Admission Attending Care Care Encounter Source Date/Time Date/Time Type Type Clinicians Facility Department ID 2021-10-04 Outpatient [place], [facility] [id number] Common 13:57:51 Veronique [address] [facility] 2021-06-15 2021-06-15 [facility] [id number] Co mmon 00:00:00 00:00:00 VISIT NEW Bree it PT LEVEL 4 [facility] Results Test Description Test Time Test Comments [...] 1 /HPF SOURCE(BEAKER) (test code = 2795) [id number] 05:39:00 Test Item Value Reference Range Interpretation Comments PHOSPHORUS (BEAKER) (test code = 2.8 mg/dL 2.3-4.7 604) CBC W/PLT COUNT & AUTO [id number] 05:18:00 Test Item Value Reference Range Interpretation [...] (BEAKER) (test code = 2801) U/S, RENAL, [id number] 02:06:00Reason for exam:->ckdShould this be performed at [...] cortical echogenicity. No mass. No shadowing calculus. Nohydronephrosis. Limited doppler evaluation of bilateral main renal [...] with urinalysis is advised to exclude infection. Signed:Eladio Gómez MDReport Verified Date/Time: 12/12/2018 02:06:07 Reading Location: [facility] B1 C013Y CT Body Reading Room [id number] 05:23:00 Test Item Value Reference Range Interpretation Comments PHOSPHORUS (BEAKER) (test code = 2.7 mg/dL 2.3-4.7 604) [id number] 05:23:00 Test Item Value Reference Range Interpretation Comments MAGNESIUM (BEAKER) (test code = 2.1 mg/dL 1.6-2.6 627) BASIC METABOLIC [id number] 05:23:00 Test Item Value Reference Range Interpretation [...] PATIEN TS. CBC W/PLT COUNT & AUTO [id number] 05:00:00 Test Item Value Reference Range Interpretation [...] 0-1 H PERCENT (BEAKER) (test code = 2803) [id number] 05:42:00 Test Item Value Reference Range Interpretation Comments PHOSPHORUS (BEAKER) (test code = 2.9 mg/dL 2.3-4.7 604) [id number] 05:42:00 Test Item Value Reference Range Interpretation Comments MAGNESIUM (BEAKER) (test code = 2.0 mg/dL 1.6-2.6 627) BASIC METABOLIC [id number] 05:42:00 Test Item Value Reference Range Interpretation [...] PATIEN TS. CBC W/PLT COUNT & AUTO [id number] 05:18:00 Test Item Value Reference Range Interpretation [...] = 2801) RAD, CHEST, 1 VIEW, NON [id number] 10:12:00Reason for exam:->post operative cardiacShould this be [...] aligned. Signed: Zachariah Camejo MDReport Verified Date/Time: 12/09/2018 10:12:03 Reading Location: [facility] Radiology Reading Room CBC W/PLT COUNT & AUTO [id number] 07:16:00 Test Item Value Reference Range Interpretation [...] 0-1 PERCENT (BEAKER) (test code = 2801) [id number] 07:10:00 Test Item Value Reference Range Interpretation Comments PHOSPHORUS (BEAKER) (test code = 2.5 mg/dL 2.3-4.7 604) [id number] 07:10:00 Test Item Value Reference Range Interpretation Comments MAGNESIUM (BEAKER) (test code = 2.1 mg/dL 1.6-2.6 627) BASIC METABOLIC [id number] 07:10:00 Test Item Value Reference Range Interpretation [...] APPLICABLE FOR DIALYSIS PATIEN TS. HEMOGLOBIN AND [id number] 19:10:00 Test Item Value Reference Range Interpretation Comments HEMOGLOBIN (BEAKER) (test code = 8.1 GM/DL 13.7-17.5 L 410) HEMATOCRIT (BEAKER) (test code = 24.8 % 40.1-51.0 L 411) RAD, CHEST, 1 VIEW, NON [id number] 07:39:00Reason for exam:->post operative cardiacShould this be [...] MDReport Verified Date/Time: 12/08/2018 07:39:23 Reading Location: [facility] Radiology Reading Room [id number] 05:54:00 Test Item Value Reference Range Interpretation Comments PHOSPHORUS (BEAKER) (test code = 2.7 mg/dL 2.3-4.7 604) BASIC METABOLIC [id number] 05:54:00 Test Item Value Reference Range Interpretation [...] PATIEN TS. CBC W/PLT COUNT & AUTO [id number] 04:57:00 Test Item Value Reference Range Interpretation [...] (BEAKER) (test code = 2801) BASIC METABOLIC [id number] 12:27:00 Test Item Value Reference Range Interpretation [...] APPLICABLE FOR DIALYSIS PATIEN TS. HEMOGLOBIN AND [id number] 12:09:00 Test Item Value Reference Range Interpretation Comments HEMOGLOBIN (BEAKER) (test code = 7.3 GM/DL 13.7-17.5 L 410) HEMATOCRIT (BEAKER) (test code = 23.0 % 40.1-51.0 L 411) [id number] 07:19:00 Test Item Value Reference Range Interpretation Comments PHOSPHORUS (BEAKER) (test code = 3.0 mg/dL 2.3-4.7 604) [id number] 07:19:00 Test Item Value Reference Range Interpretation Comments MAGNESIUM (BEAKER) (test code = 2.4 mg/dL 1.6-2.6 627) BASIC METABOLIC [id number] 07:19:00 Test Item Value Reference Range Interpretation [...] = 413) RAD, CHEST, 1 VIEW, NON [id number] 05:15:00Reason for exam:->post operative cardiacShould this be [...] Henriquez Verified Date/Time: 12/07/2018 05:15:09 Reading Location: [address] Transitional Reading Room BASIC METABOLIC [id number] 00:00:00 Test Item Value Reference Range Interpretation [...] APPLICABLE FOR DIALYSIS PATIEN TS. HEMOGLOBIN AND [id number] 22:57:00 Test Item Value Reference Range Interpretation Comments HEMOGLOBIN (BEAKER) (test code = 6.9 GM/DL 13.7-17.5 L 410) HEMATOCRIT (BEAKER) (test code = 21.1 % 40.1-51.0 L 411) BASIC METABOLIC [id number] 16:15:00 Test Item Value Reference Range Interpretation [...] APPLICABLE FOR DIALYSIS PATIEN TS. HEMOGLOBIN AND [id number] 15:58:00 Test Item Value Reference Range Interpretation Comments HEMOGLOBIN (BEAKER) (test code = 7.2 GM/DL 13.7-17.5 L 410) HEMATOCRIT (BEAKER) (test code = 22.0 % 40.1-51.0 L 411) PROTEIN ELECTROPHORESIS, [id number] 11:34:00 Test Item Value Reference Range Interpretation [...] in (BEAKER) (test code = expected distribution 2611) with slight decrease in serum albumin. No monoclonal bands detected. [id number] Terrie Rubio MD (BEAKER) (test code = (electronic signature) 9434) PROTEIN TOTAL SERUM, 6.1 gm/dL 6.0-8.3 SPEP (BEAKER) (test code = 2660) [id number] 10:57:00 Test Item Value Reference Range Interpretation Comments POTASSIUM (BEAKER) 5.4 meq/L 3.5-5.1 H Specimen slightly (test code = 379) hemolyzed Every 8 hours PRN for Creatinine greater than or equal to 2 mg/dL.CBC W/PLT COUNT & AUTO [id number] 10:43:00 Test Item Value Reference Range Interpretation [...] = 2801) RAD, CHEST, 1 VIEW, NON [id number] 08:09:00Reason for exam:->post operative cardiacShould this be [...] place. Impression: No interval change. Signed: Tylor Griffithort Verified Date/Time: 12/06/2018 08:09:04 Reading Location: [facility] C013X Ortho Consult Reading Room POTASSIUM-STAT [id number] 06:31:00 Test Item Value Reference Range Interpretation Comments POTASSIUM (BEAKER) (test code = 4.9 meq/L 3.6-5.5 379) BLOOD GAS, [id number] 06:20:00 Test Item Value Reference Range Interpretation [...] (BEAKER) (test code = 1819) 21.0 % [id number] 06:11:00 Test Item Value Reference Range Interpretation Comments PHOSPHORUS (BEAKER) (test code = 4.3 mg/dL 2.3-4.7 604) [id number] 06:11:00 Test Item Value Reference Range Interpretation Comments MAGNESIUM (BEAKER) (test code = 2.3 mg/dL 1.6-2.6 627) BASIC METABOLIC [id number] 06:11:00 Test Item Value Reference Range Interpretation [...] 0-0 (BEAKER) (test code = 413) PLATELET [id number] 04:57:00 Test Item Value Reference Range Interpretation Comments PLATELET COUNT (BEAKER) (test 203 K/CU MM 150-450 code = 756) RAD, CHEST, 1 VIEW, NON [id number] 00:32:00Reason for exam:->chest tubes FINAL REPORT EXAMINATION: [...] MDReport Verified Date/Time: 12/06/2018 00:32:25 Reading Location: [address] Reading Room PT/APTT 2018-12-05 23:36:00 Test [...] is 2.5-3.5 for patients with mechanical heart valves.[id number] 23:35:00 Test Item Value Reference Range Interpretation Comments FIBRINOGEN LEVEL (BEAKER) (test 340 mg/dl 225-434 code = 658) CBC W/PLT COUNT & AUTO [id number] 23:15:00 Test Item Value Reference Range Interpretation [...] (BEAKER) (test code = 2801) BLOOD GAS, [id number] 23:13:00 Test Item Value Reference Range Interpretation [...] (test code = 1819) 36.0 % GLUCOSE-STAT [id number] 23:13:00 Test Item Value Reference Range Interpretation Comments GLUCOSE RANDOM (BEAKER) (test code 172 mg/dL 70-110 H = 652) HGB/HCT (H&H) - STAT [id number] 23:13:00 Test Item Value Reference Range Interpretation Comments HEMOGLOBIN (BEAKER) (test code = 9.1 g/dL 13.0-16.8 L 410) HEMATOCRIT (BEAKER) (test code = 27.0 % 40.0-50.0 L 411) SODIUM NA-STAT [id number] 23:09:00 Test Item Value Reference Range Interpretation Comments SODIUM (LINDA) (test code = 381) 136 meq/L 135-148 POTASSIUM-STAT [id number] 23:09:00 Test Item Value Reference Range Interpretation Comments POTASSIUM (HIAKER) (test code = 5.0 meq/L 3.6-5.5 379) RAD, CHEST, 1 VIEW, NON [id number] 22:57:00while patient is intubated or has chest [...] postoperative chest. Signed: Tylor Griffitheport Verified Date/Time: 12/05/2018 22:57:32 Reading Location: [address] Consult Reading Room [id number] 22:51:00 Test Item Value Reference Range Interpretation Comments ACTIVATED CLOTTING TIME 120 sec TEST ED AT [place] [address] ([facility]) (test code = JAMISON Fontanez [place] [address]) [address] [id number] 22:51:00 Test Item Value Reference Range Interpretation Comments ACTIVATED CLOTTING TIME 521 sec TEST ED AT [place] [address] ([facility]) (test code = JAMISON Fontanez [place] [address]) [id number] 22:51:00 Test Item Value Reference Range Interpretation Comments ACTIVATED CLOTTING TIME 527 sec TEST ED AT [place] [address] ([facility]) (test code = JAMISON Fontanez [place] [address]) [address] [id number] 22:51:00 Test Item Value Reference Range Interpretation Comments ACTIVATED CLOTTING TIME 483 sec TEST ED AT [place] [address] ([facility]) (test code = JAMISON Fontanez [place] [address]) [address] [id number] 22:51:00 Test Item Value Reference Range Interpretation Comments ACTIVATED CLOTTING TIME 483 sec TEST ED AT [place] [address] ([facility]) (test code = JAMISON Fontanez [place] [address]) [address] [id number] 22:51:00 Test Item Value Reference Range Interpretation Comments ACTIVATED CLOTTING TIME 698 sec TEST ED AT [place] [address] ([facility]) (test code = JAMISON Fontanez [place] [address]) [address] [id number] 22:51:00 Test Item Value Reference Range Interpretation Comments ACTIVATED CLOTTING TIME 439 sec TEST ED AT [place] [address] ([facility]) (test code = JAMISON Fontanez [place] [address]) [address] BLOOD GAS, [id number] 21:49:00 Test Item Value Reference Range Interpretation [...] (test code = 1819) 40.0 % CALCIUM, [id number] 19:50:00 Test Item Value Reference Range Interpretation Comments CALCIUM IONIZED (BEAKER) (test 1.11 mmol/L 1.12-1.27 L code = 698) PH, BLOOD (BEAKER) (test code = 7.51 1810) HGB/HCT (H&H) - STAT [id number] 19:50:00 Test Item Value Reference Range Interpretation [...] (test 0.0 % 0.0-5.0 code = 1414) [id number] 17:58:00 Test Item Value Reference Range Interpretation [...] 2.5-3.5 for patients with mechanical heart valves.PROTHROMBIN [id number] 17:57:00 Test Item Value Reference Range Interpretation Comments PROTIME (BEAKER) (test code = 16.5 seconds 11.7-14.7 H 759) INR (BEAKER) (test code = 370) 1.3 <=5.9 RECOMMENDED COUMADIN/WARFARIN INR THERAPY RANGESSTANDARD DOSE: 2.0 - 3.0 Includes: PROPHYLAXIS for venous thrombosis, systemic embolization; TREATMENT for venous thrombosis and/or pulmonary embolus.HIGH RISK: Target INR is 2.5-3.5 for patients with mechanical heart valves.[id number] 17:57:00 Test Item Value Reference Range Interpretation Comments FIBRINOGEN LEVEL (BEAKER) (test 347 mg/dl 225-434 code = 658) [id number] 17:27:00 Test Item Value Reference Range Interpretation Comments PHOSPHORUS (BEAKER) (test code = 3.3 mg/dL 2.3-4.7 604) [id number] 17:27:00 Test Item Value Reference Range Interpretation Comments MAGNESIUM (BEAKER) (test code = 2.6 mg/dL 1.6-2.6 627) BASIC METABOLIC [id number] 17:27:00 Test Item Value Reference Range Interpretation [...] APPLICABLE FOR DIALYSIS PATIEN TS. LACTIC ACID, [id number] 17:21:00 Test Item Value Reference Range Interpretation Comments LACTATE BLOOD ARTERIAL (2) 1.9 mmol/L 0.5-2.2 (BEAKER) (test code = 2874) OXYGEN SATURATION, [id number] 17:10:00 Test Item Value Reference Range Interpretation Comments O2 SATURATION (MEASURED) (BEAKER) 81.3 % (test code = 1455) CBC W/PLT COUNT & AUTO [id number] 17:07:00 Test Item Value Reference Range Interpretation [...] (BEAKER) (test code = 2801) SODIUM NA-STAT [id number] 17:05:00 Test Item Value Reference Range Interpretation Comments SODIUM (BEAKER) (test code = 381) 138 meq/L 135-148 POTASSIUM-STAT [id number] 17:05:00 Test Item Value Reference Range Interpretation Comments POTASSIUM (BEAKER) (test code = 3.9 meq/L 3.6-5.5 379) BLOOD GAS, [id number] 17:05:00 Test Item Value Reference Range Interpretation [...] (test code = 1819) 80.0 % GLUCOSE-STAT [id number] 17:05:00 Test Item Value Reference Range Interpretation Comments GLUCOSE RANDOM (BEAKER) (test code 140 mg/dL 70-110 H = 652) HGB/HCT (H&H) - STAT [id number] 17:05:00 Test Item Value Reference Range Interpretation [...] 63.7 MM 55.0-65.0 (test code = 1413) [id number] 14:59:00 Test Item Value Reference Range Interpretation Comments FIBRINOGEN LEVEL (BEAKER) (test 368 mg/dl 225-434 code = 658) [id number] 14:59:00 Test Item Value Reference Range Interpretation [...] (BEAKER) (test code = 413) BLOOD GAS, [id number] 14:15:00 Test Item Value Reference Range Interpretation [...] (test code = 1819) 95.0 % GLUCOSE-STAT [id number] 14:15:00 Test Item Value Reference Range Interpretation Comments GLUCOSE RANDOM (BEAKER) (test code 196 mg/dL 70-110 H = 652) HGB/HCT (H&H) - STAT [id number] 14:15:00 Test Item Value Reference Range Interpretation Comments HEMOGLOBIN (BEAKER) (test code = 9.9 g/dL 13.0-16.8 L 410) HEMATOCRIT (BEAKER) (test code = 29.0 % 40.0-50.0 L 411) SODIUM NA-STAT [id number] 14:13:00 Test Item Value Reference Range Interpretation Comments SODIUM (BEAKER) (test code = 381) 136 meq/L 135-148 POTASSIUM-STAT [id number] 14:13:00 Test Item Value Reference Range Interpretation Comments POTASSIUM (BEAKER) (test code = 4.9 meq/L 3.6-5.5 379) BLOOD GAS, [id number] 13:59:00 Test Item Value Reference Range Interpretation [...] (test code = 1819) 90.0 % POTASSIUM-STAT [id number] 13:59:00 Test Item Value Reference Range Interpretation Comments POTASSIUM (BEAKER) (test code = 5.7 meq/L 3.6-5.5 H 379) GLUCOSE-STAT [id number] 13:59:00 Test Item Value Reference Range Interpretation Comments GLUCOSE RANDOM (BEAKER) (test code 221 mg/dL 70-110 H = 652) HGB/HCT (H&H) - STAT [id number] 13:59:00 Test Item Value Reference Range Interpretation Comments HEMOGLOBIN (BEAKER) (test code = 10.2 g/dL 13.0-16.8 L 410) HEMATOCRIT (BEAKER) (test code = 30.0 % 40.0-50.0 L 411) SODIUM NA-STAT [id number] 13:44:00 Test Item Value Reference Range Interpretation Comments SODIUM (BEAKER) (test code = 381) 135 meq/L 135-148 BLOOD GAS, [id number] 13:11:00 Test Item Value Reference Range Interpretation [...] (test code = 1819) 70.0 % GLUCOSE-STAT [id number] 13:11:00 Test Item Value Reference Range Interpretation Comments GLUCOSE RANDOM (BEAKER) (test code 218 mg/dL 70-110 H = 652) HGB/HCT (H&H) - STAT [id number] 13:11:00 Test Item Value Reference Range Interpretation Comments HEMOGLOBIN (BEAKER) (test code = 9.9 g/dL 13.0-16.8 L 410) HEMATOCRIT (BEAKER) (test code = 29.0 % 40.0-50.0 L 411) SODIUM NA-STAT [id number] 13:09:00 Test Item Value Reference Range Interpretation Comments SODIUM (BEAKER) (test code = 381) 135 meq/L 135-148 POTASSIUM-STAT [id number] 13:09:00 Test Item Value Reference Range Interpretation Comments POTASSIUM (BEAKER) (test code = 5.3 meq/L 3.6-5.5 379) BLOOD GAS, [id number] 12:50:00 Test Item Value Reference Range Interpretation [...] (test code = 1819) 65.0 % GLUCOSE-STAT [id number] 12:50:00 Test Item Value Reference Range Interpretation Comments GLUCOSE RANDOM (BEAKER) (test code 208 mg/dL 70-110 H = 652) HGB/HCT (H&H) - STAT [id number] 12:50:00 Test Item Value Reference Range Interpretation Comments HEMOGLOBIN (BEAKER) (test code = 9.7 g/dL 13.0-16.8 L 410) HEMATOCRIT (BEAKER) (test code = 29.0 % 40.0-50.0 L 411) SODIUM NA-STAT [id number] 12:49:00 Test Item Value Reference Range Interpretation Comments SODIUM (BEAKER) (test code = 381) 135 meq/L 135-148 POTASSIUM-STAT [id number] 12:49:00 Test Item Value Reference Range Interpretation Comments POTASSIUM (BEAKER) (test code = 5.1 meq/L 3.6-5.5 379) BLOOD GAS, [id number] 12:23:00 Test Item Value Reference Range Interpretation [...] (test code = 1819) 80.0 % GLUCOSE-STAT [id number] 12:23:00 Test Item Value Reference Range Interpretation Comments GLUCOSE RANDOM (BEAKER) (test code 183 mg/dL 70-110 H = 652) HGB/HCT (H&H) - STAT [id number] 12:23:00 Test Item Value Reference Range Interpretation Comments HEMOGLOBIN (BEAKER) (test code = 9.7 g/dL 13.0-16.8 L 410) HEMATOCRIT (BEAKER) (test code = 29.0 % 40.0-50.0 L 411) SODIUM NA-STAT [id number] 12:22:00 Test Item Value Reference Range Interpretation Comments SODIUM (BEAKER) (test code = 381) 135 meq/L 135-148 POTASSIUM-STAT [id number] 12:22:00 Test Item Value Reference Range Interpretation Comments POTASSIUM (BEAKER) (test code = 4.7 meq/L 3.6-5.5 379) SODIUM NA-STAT [id number] 11:58:00 Test Item Value Reference Range Interpretation Comments SODIUM (BEAKER) (test code = 381) 136 meq/L 135-148 POTASSIUM-STAT [id number] 11:58:00 Test Item Value Reference Range Interpretation Comments POTASSIUM (BEAKER) (test code = 4.1 meq/L 3.6-5.5 379) BLOOD GAS, [id number] 11:58:00 Test Item Value Reference Range Interpretation [...] (test code = 1819) 100.0 % GLUCOSE-STAT [id number] 11:58:00 Test Item Value Reference Range Interpretation Comments GLUCOSE RANDOM (BEAKER) (test code 143 mg/dL 70-110 H = 652) HGB/HCT (H&H) - STAT [id number] 11:58:00 Test Item Value Reference Range Interpretation Comments HEMOGLOBIN (BEAKER) (test code = 10.9 g/dL 13.0-16.8 L 410) HEMATOCRIT (BEAKER) (test code = 32.0 % 40.0-50.0 L 411) BLOOD GAS, [id number] 11:57:00 Test Item Value Reference Range Interpretation Comments PH VENOUS (BEAKER) (test code = 7.42 7.32-7.42 701) PCO2 VENOUS (BEAKER) (test code = 39 mmHg 41-51 L 755) PO2 VENOUS (BEAKER) (test code = 63 mmHg 25-40 H 702) O2 SATURATION VENOUS (BEAKER) 95.3 % 40.0-70.0 H (test code = 703) HCO3 VENOUS (BEAKER) (test code = 26 mmol/L 705) BASE EXCESS VENOUS (BEAKER) (test 0.0 mmol/L -2.0-3.0 code = 704) PATIENT TEMPERATURE (BEAKER) (test 33.6 C code = 1818) FIO2 (BEAKER) (test code = 1819) 100.0 % HEMOGLOBIN [id number] 10:26:00 Test Item Value Reference Range Interpretation Comments HEMOGLOBIN A1C (BEAKER) (test code = 5.2 % 4.3-6.1 368) PLATELET AGGREGATION: FUNCTION [id number] 09:03:00 Test Item Value Reference Range Interpretation Comments WEAK ADP 55 % 60-91 L RESULT(BEAKER) (test code = 2135) PLATELET FUNCTION 50-59% indicates mild SCREEN INTERP platelet dysfunction (BEAKER) (test code = 2173) [id number] Sam Ramírez MD (BEAKER) (test code = (electronic signature) 4620) PLATELET COUNT AGG 169 K/CU MM 150-450 (BEAKER) (test code = 2656) Platelet Function Screen results may be falsely low with platelet counts<100,000/cu mm.BLOOD GAS, [id number] 08:53:00 Test Item Value Reference Range Interpretation Comments PH ARTERIAL (BEAKER) (test code = 7.49 7.35-7.45 H 383) PCO2 ARTERIAL (BEAKER) (test code 31 mmHg 35-45 L = 384) PO2 ARTERIAL (BEAKER) (test code = 356 mmHg 80-90 H 385) O2 SATURATION ARTERIAL (BEAKER) 99.8 % 96.0-97.0 H (test code = 386) HCO3 ARTERIAL (BEAKER) (test code 23 mmol/L = 388) BASE EXCESS ARTERIAL (BEAKER) 0.2 mmol/L -2.0-3.0 (test code = 387) PATIENT TEMPERATURE (BEAKER) (test 36.2 C code = 1818) FIO2 (BEAKER) (test code = 1819) 100.0 % HGB/HCT (H&H) - STAT [id number] 08:53:00 Test Item Value Reference Range Interpretation Comments HEMOGLOBIN (BEAKER) (test code = 12.7 g/dL 13.0-16.8 L 410) HEMATOCRIT (BEAKER) (test code = 37.0 % 40.0-50.0 L 411) CALCIUM, [id number] 08:53:00 Test Item Value Reference Range Interpretation Comments CALCIUM IONIZED (BEAKER) (test 1.05 mmol/L 1.12-1.27 L code = 698) PH, BLOOD (BEAKER) (test code = 7.48 1810) GLUCOSE-STAT [id number] 08:51:00 Test Item Value Reference Range Interpretation Comments GLUCOSE RANDOM (BEAKER) (test code 102 mg/dL 70-110 = 652) SODIUM NA-STAT [id number] 08:51:00 Test Item Value Reference Range Interpretation Comments SODIUM (BEAKER) (test code = 381) 138 meq/L 135-148 POTASSIUM-STAT [id number] 08:51:00 Test Item Value Reference Range Interpretation Comments POTASSIUM (BEAKER) (test code = 4.1 meq/L 3.6-5.5 379) URINALYSIS W/ [id number] 05:26:00 Test Item Value Reference Range Interpretation [...] 1584) SOURCE(BEAKER) (test code = Urine, Voided 4472) VITAMIN D, 70-[id number] 05:01:00 Test Item Value Reference Range Interpretation Comments VITAMIN D 25-OH (BEAKER) (test 24.8 ng/mL 6.6-49.9 code = 3814) Effective 06/19/2017: Reference Range ChangeNew: 6.6-49.9 ng/mL Previous: 13.0- 47.8 ng/mLRecommendedVitamin D Target Range: 30.0-40.0 ng/mLCREATININE, RANDOM [id number] 04:55:00 Test Item Value Reference Range Interpretation Comments CREATININE URINE (BEAKER) (test 68.3 mg/dL code = 375) Reference Range: No NormalsPROTEIN, RANDOM [id number] 04:55:00 Test Item Value Reference Range Interpretation Comments PROTEIN, URINE (BEAKER) (test code = 19 mg/dL 0-14 H 1569) PTH, [id number] 04:44:00 Test Item Value Reference Range Interpretation Comments PARATHYROID HORMONE INTACT 69.0 pg/mL 8.5-72.5 (BEAKER) (test code = 577) BASIC METABOLIC [id number] 04:41:00 Test Item Value Reference Range Interpretation [...] = 413) RAD, CHEST, 1 VIEW, NON [id number] 20:09:00Reason for exam:->Pre Op (ACB) ScreeninigShould this [...] MDReport Verified Date/Time: 12/04/2018 20:09:09 Reading Location: [address] Neuro Reading Room [id number] 04:47:00 Test Item Value Reference Range Interpretation Comments PARTIAL THROMBOPLASTIN TIME 83.1 seconds 22.5-36.0 H (BEAKER) (test code = 760) [id number] 04:44:00 Test Item Value Reference Range Interpretation Comments MAGNESIUM (BEAKER) 2.3 mg/dL 1.6-2.6 Specimen slightly (test code = 627) hemolyzed BASIC METABOLIC [id number] 04:44:00 Test Item Value Reference Range Interpretation [...] (test code = 413) PLATELET AGGREGATION: DRUG [id number] 19:31:00 Test Item Value Reference Range Interpretation Comments STRONG ADP 67 % 70-94 L RESULT(BEAKER) (test code = 2137) WEAK ADP RESULT(BEAKER) 65 % 60-91 (test code = 2135) ARACHADONIC ACID 5 % 63-89 L RESULT(BEAKER) (test code = 2138) PLATELET AGG DRUG Normal response to INTERPRETATION (BEAKER) ADP suggests a lack (test code = 2408) of [id number] effect. PLATELET AGG DRUG Decreased response to INTERPRETATION (BEAKER) arachidonic acid (test code = 893407) suggests aspirin-like effect. [id number] Sandi Ovalle MD (BEAKER) (test code = (electronic 5651) signature) PLATELET COUNT AGG 163 K/CU MM 150-450 (BEAKER) (test code = 2886) Platelet aggregation results may be falsely low with platelet counts<100,000/CU MM.[id number] 12:53:00 Test Item Value Reference Range Interpretation Comments PARTIAL THROMBOPLASTIN TIME 69.0 seconds 22.5-36.0 H (BEAKER) (test code = 760) BASIC METABOLIC [id number] 07:03:00 Test Item Value Reference Range Interpretation [...] S NOT APPLICABLE FOR DIALYSIS PATIEN TS. [id number] 06:52:00 Test Item Value Reference Range Interpretation [...] WBC 0-0 (BEAKER) (test code = 413) [id number] 00:34:00 Test Item Value Reference Range Interpretation Comments PARTIAL THROMBOPLASTIN TIME 56.8 seconds 22.5-36.0 H (BEAKER) (test code = 760) [id number] 16:56:00 Test Item Value Reference Range Interpretation Comments PARTIAL THROMBOPLASTIN TIME 54.7 seconds 22.5-36.0 H (BEAKER) (test code = 760) B-TYPE NATRIURETIC FACTOR (BNP)2018-12-02 09:39:00 Test Item Value Reference Range Interpretation Comments B-TYPE NATRIURETIC PEPTIDE 1056 pg/mL 0-100 H (BEAKER) (test code = 700) [id number] 09:17:00 Test Item Value Reference Range Interpretation Comments PARTIAL THROMBOPLASTIN TIME 39.8 seconds 22.5-36.0 H (BEAKER) (test code = 760) TROPONIN [id number] 04:45:00 Test Item Value Reference Range Interpretation Comments TROPONIN I (BEAKER) (test code = 11.57 ng/mL 0.00-0.03 [facility]) Troponin I (TnI) levels must be interpreted [...] acute neurological disease, and persistent tachyarrhythmia.BASIC METABOLIC [id number] 04:29:00 Test Item Value Reference Range Interpretation [...] NOT APPLICABLE FOR DIALYSIS PATIEN TS. LIPID [id number] 04:29:00 Test Item Value Reference Range Interpretation [...] WBC 0-0 (BEAKER) (test code = 413) [id number] 18:55:00 Test Item Value Reference Range Interpretation Comments ACTIVATED CLOTTING TIME 98 sec TEST ED AT [facility] 6720 (BEAKER) (test code = [facility] 441) [address] COMPREHENSIVE METABOLIC [id number] 18:40:00 Test Item Value Reference Range Interpretation [...] S NOT APPLICABLE FOR DIALYSIS PATIEN TS. [id number] 18:31:00 Test Item Value Reference Range Interpretation [...] 2.5-3.5 for patients with mechanical heart valves.PROTHROMBIN TIME/[id number] 18:30:00 Test Item Value Reference Range Interpretation Comments PROTIME (BEAKER) (test code = 14.6 seconds 11.7-14.7 759) INR (BEAKER) (test code = 370) 1.1 <=5.9 RECOMMENDED COUMADIN/WARFARIN INR THERAPY RANGESSTANDARD DOSE: 2.0 - 3.0 Includes: PROPHYLAXIS for venous thrombosis, systemic embolization; TREATMENT for venous thrombosis and/or pulmonary embolus.HIGH RISK: Target INR is 2.5-3.5 for patients with mechanical heart valves.CBC W/PLT COUNT & AUTO [id number] 18:27:00 Test Item Value Reference Range Interpretation [...] 0-1 PERCENT (BEAKER) (test code = 2801) [id number] 18:07:00 Test Item Value Reference Range Interpretation Comments ACTIVATED CLOTTING TIME 136 sec TEST ED AT [facility] 8278 (LINDA) (test code = JAMISON GALLEGOS [facility]) [address]
--- NOTE | 2022-06-29 20:04 | RAD REPORT ---
EXAM DESCRIPTION: RAD - Chest Single View - 06/29/2022 7:57 pm CLINICAL HISTORY: syncope COMPARISON: Portable chest 04/22/2022 TECHNIQUE: AP portable chest image was obtained 06/29/2022 7:57 pm . FINDINGS: Lungs are clear. Heart and vasculature are normal. No measurable pleural effusion and no p neumothorax. No acute bony abnormality seen. No acute aortic findings suspected. Sternotomy wires are in place. IMPRESSION: No acute cardiopulmonary process. No significant change from comparison study.
[2022-06-29 20:27] LABS: Absolute Lymphocytes (CBC) 1.1 K/uL (0.7-4.9); Hematocrit 36.1 % (39.6-49.0); Lymphocytes % 16.7 % (15.3-44.8); MCV 92.5 fL (80-100); MPV 9.8 fL (7.6-11.3); RBC Red Blood Cell Count 3.91 M/uL (4.33-5.43)
[2022-06-29 20:33] LABS: Protime INR 1.15
[2022-06-29 20:45] LABS: Albumin 3.1 g/dL (3.4-5.0); Bilirubin Direct 0.2 mg/dL (0-0.2); Bilirubin Total 0.6 mg/dL (0.2-1.0); Magnesium 2.2 mg/dL (1.8-2.4); Potassium 3.7 mmol/L (3.5-5.1); Protein, Total 6.9 g/dL (6.4-8.2); Troponin High Sensitivity 8.7 pg/mL (<58.9)
--- NOTE | 2022-06-29 21:01 | RAD REPORT ---
EXAM DESCRIPTION: CT - Head Brain Wo Cont - 06/29/2022 8:29 pm CLINICAL HISTORY: syncope COMPARISON: Ct Stroke Brain Wo Cont dated 04/22/2022 TECHNIQUE: Axial 5 mm thick images of the head were obtained without IV contrast. All CT scans are performed using dose optimization technique as appropriate and may include automated exposure control or mA/KV adjustment according to patient size. FINDINGS: No intracranial hemorrhage, mass, edema or shift of mid-line structures. No acute cortical based infarction. No cortical edema or sulcal effacement. Moderate atrophy and moderate chronic isch emic change are present similar to comparison. Focal left thalamus old CVA changes. Ventricles are in proportion to volume loss. Volume loss changes in the left cerebellum that could be old CVA or possi lesli a small left-sided arachnoid cyst. Dense arterial tree calcifications are present. Mastoid air cells and visualized portions of the paranasal sinuses are clear. No acute bony findings. IMPRESSION: No hemorrhage, edema or acute intracranial finding identified. Atrophy and chronic ischemic changes match the April 22 imaging.
--- NOTE | 2022-06-29 21:09 | ER ---
Nurse's Notes [facility] Name: Jason Johnson Age: 72 yrs Sex: Male : 1950 Arrival Date: 06/29/2022 Time: 18:39 Bed 20 Private MD: Diagnosis: Syncope;Bradycardia, unspecified Presentation: 06/29 18:50 Chief complaint: EMS states: patient was out eating when he collapsed. EMS states mb8 patient did not have a palpable pulse upon arrival but was breathing. Patient woke up when moved to [facility]. Patient does not remember any events. Denies any pain. Ebola Screen: Patient negative for fever greater than or equal to 101.5 degrees Fahrenheit, and additional compatible Ebola Virus Disease symptoms Patient denies exposure to infectious person. Patient denies travel to an Ebola-affected area in the 21 days before illness onset. Initial Sepsis Screen: Does the patient meet any 2 criteria? No. Patient's initial sepsis screen is negative. Does the patient have a suspected source of infection? No. Patient's initial sepsis screen is negative. Risk Assessment: Do you want to hurt yourself or someone else? Patient reports no desire to harm self or others. Onset of symptoms was June 29, 2022. 18:50 Method Of Arrival: EMS: [place] [address] 18:50 Acuity: NINA 3 mb8 22:22 Coronavirus screen: Client denies travel out of the [place] in the last 14 days. At this lg3 time, the client does not indicate any symptoms associated with coronavirus-19. Triage Assessment: 18:53 General: Appears uncomfortable, ill, Behavior is calm, cooperative, appropriate for mb8 age. Pain: Denies pain. Neuro: Reports a syncopal episode. Historical: - Allergies: 18:54 No Known Allergies; mb8 - Home Meds: 22:23 aspirin 81 mg Oral TbEC 1 tab once daily [Active]; carvedilol Oral [Active]; lg3 clopidogrel Oral [Active]; multivitamin Oral tab daily [Active]; Omeprazole Oral [Active]; Probiotic Oral [Active]; - PMHx: 18:54 constipation; CVA; Hypertension; mb8 - Immunization history:: Adult Immunizations unknown. - Social history:: Smoking status: Patient denies any tobacco usage or history of. Screenin:55 Abuse screen: Denies threats or abuse. Denies injuries from another. Nutritional mb8 screening: No deficits noted. Tuberculosis screening: No symptoms or risk factors identified. Tuberculosis screening: No symptoms or risk factors identified. Fall Risk Fall in past 12 months (25 points). Secondary diagnosis (15 points) IV access (20 points). Ambulatory Aid- None/Bed Rest/Nurse Assist (0 pts). Gait- Normal/Bed Rest/Wheelchair (0 pts) Mental Status- Oriented to own ability (0 pts). Total Aguirre Fall Scale indicates High Risk Score (45 or more points). Fall prevention measures have been instituted. Side Rails Up X 2 Placed Close to Nursing Station As available patient and family educated on Fall Prevention Program and Strategies. Assessment: 18:53 Neuro: Level of Consciousness is awake, alert, obeys commands, Oriented to person, mb8 place, time, Appropriate for age Gauge Machine Operator are equal bilaterally Moves all extremities. Full function Speech is normal, Facial symmetry appears normal, Pupils are PERRLA, Pupil Size: 3 Intact Denies numbness headache. Cardiovascular: Denies chest pain, shortness of breath, Rhythm is sinus bradycardia with unifocal PVCs Chest pain is denied. 19:31 General: Appears in no apparent distress. comfortable, Behavior is calm, cooperative. lg3 Pain: Denies pain. Neuro: Level of Consciousness is awake, alert, obeys commands, Oriented to person, place, time, Appropriate for age Gauge Machine Operator are equal bilaterally Moves all extremities. Full function Facial symmetry appears normal, Pupils are PERRLA, Intact Denies weakness blurred vision numbness headache. Cardiovascular: Denies chest pain, shortness of breath, Rhythm is sinus bradycardia Chest pain is denied. Respiratory: No deficits noted. Airway is patent Trachea midline Respiratory effort is even, unlabored, Respiratory pattern is regular, symmetrical, Breath sounds are clear bilaterally. GI: No deficits noted. No signs and/or symptoms were reported involving the gastrointestinal system. Abdomen is flat, distended, Patient currently denies nausea, vomiting. : No deficits noted. No signs and/or symptoms were reported regarding the genitourinary system. EENT: No deficits noted. No signs and/or symptoms were reported regarding the EENT system. Derm: No deficits noted. No signs and/or symptoms reported regarding the dermatologic system. Skin is intact, is healthy with good turgor, Skin is dry, Skin is normal, Skin temperature is warm. Musculoskeletal: No deficits noted. No signs and/or symptoms reported regarding the musculoskeletal system. Circulation, motion, and sensation intact. Range of motion: intact in all extremities. 20:49 Reassessment: Patient appears in no apparent distress at this time. No changes from lg3 previously documented assessment. Patient and/or family updated on plan of care and expected duration. Pain level reassessed. Patient is alert, oriented x 3, equal unlabored respirations, skin warm/dry/pink. 21:58 Reassessment: Patient appears in no apparent distress at this time. No changes from lg3 previously documented assessment. Patient and/or family updated on plan of care and expected duration. Pain level reassessed. Patient is alert, oriented x 3, equal unlabored respirations, skin warm/dry/pink. pt quietly resting at this time. Vital Signs: 18:50 BP 158 / 83; Pulse 44; Resp 18; Temp 96.9; Pulse Ox 100% on R/A; Pain 0/10; mb8 18:52 Weight 86.18 kg; Height 6 ft. 2 in. (187.96 cm); mb8 19:33 BP 157 / 79; Pulse 46; Resp 17; Pulse Ox 100% on R/A; lg3 21:58 BP 155 / 80; Pulse 44; Resp 16 S; Pulse Ox 100% on R/A; Pain 0/10; lg3 18:52 Body Mass Index 24.39 (86.18 kg, 187.96 cm) mb8 NIH Stroke Scale Scores: 22:22 NIHSS Score: 0 lg3 ED Course: 18:39 Patient arrived in ED. iw 18:50 Luis F Aguirre, RN is Primary Nurse. mb8 18:52 Triage completed. mb8 18:53 Arm band placed on. mb8 18:55 Patient has correct armband on for positive identification. Placed in gown. Bed in low mb8 position. Call light in reach. Side rails up X2. Client placed on continuous cardiac and pulse oximetry monitoring. NIBP monitoring applied. metal sash setter on. 18:55 No provider procedures requiring assistance completed. EKG done, by ED staff, reviewed mb8 by Felipe Gonzalez MD. Inserted saline lock: 18 gauge in right forearm, using aseptic technique. ,using aseptic technique. BY EMS. 19:06 Jhoan Hassan DO is Attending Physician. ms3 19:31 Client placed on continuous cardiac and pulse oximetry monitoring. NIBP monitoring lg3 applied. metal sash setter on. Door closed. Noise minimized. Warm blanket given. 19:59 CXR XRAY In Process Unspecified. EDMS 20:17 Troponin High Sensitivity Sent. lg3 20:17 ETOH Level Sent. lg3 20:17 Basic Metabolic Panel Sent. lg3 20:17 CBC with Diff Sent. lg3 20:17 Hepatic Function Sent. lg3 20:17 Magnesium Sent. lg3 20:17 Protime (+inr) Sent. lg3 20:17 Ptt, Activated Sent. lg3 20:31 CT Head Brain wo Cont In Process Unspecified. EDMS 21:08 Mario Alberto Hayes is Hospitalizing Provider. ms3 21:21 SARS RAPID Sent. lg3 22:22 Patient admitted, IV remains in place. intact, No redness/swelling at site. lg3 Administered Medications: No medications were administered Medication: 18:55 VIS not applicable for this client. mb8 Outcome: 21:08 Decision to Hospitalize by Provider. ms3 22:22 Admitted to Med/surg accompanied by tech, via wheelchair, room 429, Report called to marina Head 22:22 Condition: stable 22:22 Instructed on the need for admit, Demonstrated understanding of instructions. 22:24 Patient left the ED. lg3 NIH Stroke Scale - NIH Stroke Score Date: 06/29/2022 Time: 22:22 Total Score = 0 1a. Level of Consciousness (LOC) - 0(Alert) 1b. Level of Consciousness (LOC) (Month \T\ Age) - 0(Both) 1c. LOC Commands (Open \T\ Closes Eyes/Heel Seat Laster) - 0(Both) 2. Best Gaze (Lateral Gaze Paresis) - 0(Normal) 3. Visual Field Loss - 0(No visual loss) 4. Facial Palsy - 0(Normal) 5a. Left Arm: Motor (10-second hold) - 0(No drift) 5b. Right Arm: Motor (10-second hold) - 0(No drift) 6a. Left Leg: Motor (5-second hold - always test supine) - 0(No drift) 6b. Right Leg: Motor (5-second hold - always test supine) - 0(No drift) 7. Limb Ataxia (finger/nose \T\ heel/whitley - test with eyes open) - 0(Absent) 8. Sensory Loss (pinprick arms/legs/face) - 0(Normal) 9. Best Language: Aphasia (description/naming/reading) - 0(No aphasia) 10. Dysarthria (speech clarity - read or repeat words) - 0(Normal) 11. Extinction and Inattention (visual/tactile/auditory/spatial/personal) - 0(No abnormality) Initials: lg3 Signatures: Dispatcher [employer] EDSis Hall, RN RN iw Mariaelena Simmons RN RN lg3 Jhoan Hassan DO DO ms3 Luis F Aguirre, RN RN mb8
--- NOTE | 2022-06-29 21:09 | EDPHYS ---
Physician Documentation [facility] Name: Jason Johnson Age: 72 yrs Sex: Male : 1950 Arrival Date: 06/29/2022 Time: 18:39 Bed 20 Private MD: ED Physician Jhoan Hassan HPI: 06/29 19:20 This 72 yrs old Male presents to ER via EMS with complaints of Syncope. ms3 19:20 72-year-old male with past medical history of CVA, hypertension, constipation presents ms3 via [facility] status post syncopal episode while at the field station eating. EMS states on their arrival they were unable to palpate pulses. Patient's initial systolic blood pressure for EMS was 110. Patient is without complaints or pain at this time. Patient denies alleviating or inciting factors. Patient denies nausea, vomiting, diarrhea, chest pain, shortness of breath.. Historical: - Allergies: 18:54 No Known Allergies; mb8 - Home Meds: 22:23 aspirin 81 mg Oral TbEC 1 tab once daily [Active]; carvedilol Oral [Active]; lg3 clopidogrel Oral [Active]; multivitamin Oral tab daily [Active]; Omeprazole Oral [Active]; Probiotic Oral [Active]; - PMHx: 18:54 constipation; CVA; Hypertension; mb8 - Immunization history:: Adult Immunizations unknown. - Social history:: Smoking status: Patient denies any tobacco usage or history of. ROS: 19:20 Constitutional: Negative for fever, and chills. Neck: Negative for injury, pain, and ms3 swelling, Cardiovascular: Negative for chest pain, and palpitations. Respiratory: Negative for shortness of breath, cough, wheezing, and pleuritic chest pain, Abdomen/GI: Negative for abdominal pain, nausea, vomiting, diarrhea, and constipation, Back: Negative for injury and pain, MS/Extremity: Negative for injury and deformity, Skin: Negative for injury, rash, and discoloration. 19:20 Neuro: Positive for syncope. Exam: 18:44 ECG was reviewed by the Attending Physician. ms3 19:20 Constitutional: This is a well developed, well nourished patient who is awake, alert, ms3 and in no acute distress. Head/Face: Normocephalic, atraumatic. Eyes: Pupils equal round and reactive to light, extra-ocular motions intact. Lids and lashes normal. Conjunctiva and sclera are non-icteric and not injected. Periorbital areas with no swelling, redness, or edema. Neck: Trachea midline, no cervical lymphadenopathy. Supple, full range of motion without nuchal rigidity, or vertebral point tenderness. No Meningismus. Chest/axilla: Normal chest wall appearance and motion. Nontender with no deformity. Respiratory: Lungs have equal breath sounds bilaterally, clear to auscultation and percussion. No rales, rhonchi or wheezes noted. No increased work of breathing, no retractions or nasal flaring. Abdomen/GI: Soft, non-tender, with normal bowel sounds. No distension or tympany. No guarding or rebound. No evidence of tenderness throughout. 19:20 Skin: Warm, dry with normal turgor. Normal color with no rashes, no lesions, and no evidence of cellulitis. 19:20 Cardiovascular: Rate: bradycardic, actual rate is 44 bpm, Rhythm: regular, Pulses: no pulse deficits are appreciated. 19:20 Neuro: Orientation: to person, place, time \T\ situation. Mentation: is normal, able to follow commands, Memory: is normal, immediate memory is intact, Cranial nerves: CN II- XII are normal as tested, Cerebellar function: is grossly normal, normal finger to nose testing, heel to whitley testing is normal, Motor: is normal, Sensation: is normal, no obvious gross deficits, Gait: not tested. seizure activity, is not displayed by the patient, Abnormal movements: there are no abnormal movements. Vital Signs: 18:50 BP 158 / 83; Pulse 44; Resp 18; Temp 96.9; Pulse Ox 100% on R/A; Pain 0/10; mb8 18:52 Weight 86.18 kg; Height 6 ft. 2 in. (187.96 cm); mb8 19:33 BP 157 / 79; Pulse 46; Resp 17; Pulse Ox 100% on R/A; lg3 21:58 BP 155 / 80; Pulse 44; Resp 16 S; Pulse Ox 100% on R/A; Pain 0/10; lg3 18:52 Body Mass Index 24.39 (86.18 kg, 187.96 cm) mb8 NIH Stroke Scale Scores: 22:22 NIHSS Score: 0 lg3 MDM: 19:35 Patient medically screened. ms3 21:08 Data reviewed: vital signs, nurses notes, lab test result(s), EKG, radiologic studies, ms3 and as a result, I will admit patient. Counseling: I had a detailed discussion with the patient and/or guardian regarding: the historical points, exam findings, and any diagnostic results supporting the discharge/admit diagnosis, lab results, radiology results, the need for further work-up and treatment in the hospital. ED course: Discussed case with MICHAEL Haas, and she accepts patient on behalf of of Dr. Hayes. Discussed plan for admission with patient and he understands and agrees with pain. 06/29 19:18 Order name: Basic Metabolic Panel; Complete Time: 20:50 ms3 06/29 19:18 Order name: CBC with Diff; Complete Time: 20:50 ms3 06/29 19:18 Order name: Hepatic Function; Complete Time: 20:50 ms3 06/29 19:18 Order name: Magnesium; Complete Time: 20:50 ms3 06/29 19:18 Order name: Protime (+inr); Complete Time: 20:50 ms3 06/29 19:18 Order name: Ptt, Activated; Complete Time: 20:50 ms3 06/29 19:13 Order name: EKG - Nurse/Tech; Complete Time: 19:13 mb8 06/29 19:18 Order name: CT Head Brain wo Cont; Complete Time: 21:05 ms3 06/29 19:18 Order name: EKG; Complete Time: 19:19 ms3 06/29 19:19 Order name: CXR XRAY; Complete Time: 20:50 ms3 06/29 19:19 Order name: ETOH Level; Complete Time: 20:50 ms3 06/29 19:19 Order name: Troponin High Sensitivity; Complete Time: 20:50 ms3 06/29 21:08 Order name: SARS RAPID; Complete Time: 21:52 bb 06/29 21:27 Order name: Urine Dipstick-Ancillary; Complete Time: 21:45 EDMS 06/29 19:18 Order name: Cardiac monitoring; Complete Time: 19:34 ms3 06/29 19:18 Order name: EKG - Nurse/Tech; Complete Time: 19:20 ms3 06/29 19:18 Order name: IV Saline Lock; Complete Time: 19:20 ms3 06/29 19:18 Order name: Labs collected and sent; Complete Time: 20:17 ms3 06/29 19:18 Order name: NPO; Complete Time: 20:17 ms3 06/29 19:18 Order name: O2 Per Protocol; Complete Time: 19:20 ms3 06/29 19:18 Order name: O2 Sat Monitoring; Complete Time: 19:20 ms3 06/29 19:18 Order name: Urine Dipstick-Ancillary (obtain specimen); Complete Time: 21:26 ms3 EC:44 Rate is 44 beats/min. Rhythm is regular. QRS [place] is Normal. OH interval is normal. QRS ms3 interval is normal. Clinical impression: Sinus bradycardia. Interpreted by me. Reviewed by me. Administered Medications: No medications were administered Disposition Summary: 06/29/22 21:08 Hospitalization Ordered Hospitalization Status: Observation ms3 Provider: Mario Alberto Hayes ms3 Condition: Stable ms3 Problem: new ms3 Symptoms: are unchanged ms3 Bed/Room Type: Standard ms3 Location: Telemetry/MedSurg (Inpatient)(06/29/22 22:03) mw Room Assignment: 429(06/29/22 22:03) Diagnosis - Syncope ms3 - Bradycardia, unspecified ms3 Forms: - Medication Reconciliation Form ms3 - SBAR form ms3 NIH Stroke Scale - NIH Stroke Score Date: 06/29/2022 Time: : Total Score = 0 1a. Level of Consciousness (LOC) - 0(Alert) 1b. Level of Consciousness (LOC) (Month \T\ Age) - 0(Both) 1c. LOC Commands (Open \T\ Closes Eyes/Cell Technician) - 0(Both) 2. Best Gaze (Lateral Gaze Paresis) - 0(Normal) 3. Visual Field Loss - 0(No visual loss) 4. Facial Palsy - 0(Normal) 5a. Left Arm: Motor (10-second hold) - 0(No drift) 5b. Right Arm: Motor (10-second hold) - 0(No drift) 6a. Left Leg: Motor (5-second hold - always test supine) - 0(No drift) 6b. Right Leg: Motor (5-second hold - always test supine) - 0(No drift) 7. Limb Ataxia (finger/nose \T\ heel/whitley - test with eyes open) - 0(Absent) 8. Sensory Loss (pinprick arms/legs/face) - 0(Normal) 9. Best Language: Aphasia (description/naming/reading) - 0(No aphasia) 10. Dysarthria (speech clarity - read or repeat words) - 0(Normal) 11. Extinction and Inattention (visual/tactile/auditory/spatial/personal) - 0(No abnormality) Initials: lg3 Signatures: Dispatcher [employer] EDMS Dasia Sun, RN RN Mariaelena Simmons RN RN lg3 Jhoan Hassan DO DO ms3 Luis F Aguirre, RN RN mb8 Paige Sneed, PAFelipeC PACrista sb4 Corrections: (The following items were deleted from the chart) 21:50 21:08 ms3 mw 22:03 21:08 Telemetry/MedSurg (observation) ms3 mw 22:03 21:50 429 mw mw 22:03 22:03 mw mw
[2022-06-29 21:27] LABS: Urine Blood Negative (Negative); Urine Glucose Negative (Negative); Urine Protein 1+ (Negative)
[2022-06-29 21:45] LABS: SARS-CoV-2 Antigen Rapid Res Negative (Negative)
--- NOTE | 2022-06-29 21:50 | P.HP ---
Certification for Inpatient Patient admitted to: Observation With expected LOS: <2 Midnights Patient will require the following post-hospital care: None Practitioner: I am a practitioner with admitting privileges, knowledge of patient current condition, hospital course, and medical plan of care. Services: Services provided to patient in accordance with Admission requirements found in Title 42 Section 412.3 of the Code of Federal Regulations Patient History Date of Service: 06/29/22 Reason for admission: Symptomatic Bradycardia History of Present Illness: Patient is a 72-year-old male with history of CVA, hypertension, CAD s/p CABG, and CKD 3B who presented to the ED status post syncopal episode. Patient states that he had been drinking alcohol at a bar, was eating and just passed out. EMS states that they were initially unable to palpate pulses upon arrival. Patient is now completely awake and alert at this time, his only complaint is that he is constipated. EKG showed sinus bradycardia with a rate of 44. Chest xray and head CT are negative. Labs are significant for BUN 22 and creatinine 1.73. Heart rate has remained in the 40s. ED provider wishes to admit patient for further management. Allergies No Known Drug Allergies Allergy (Verified 07/26/19 19:32) Unknown Home medications list reviewed: Yes Home Medications: Aspirin 2 tab PO DAILY 06/14/18 Clopidogrel Bisulfate [Plavix*] 75 mg PO DAILY tablet 12/23/18 Docusate/Senna [Senokot-S*] 2 tab PO BEDTIME tab 12/23/18 Ferrous Sulfate [Ferrous Sulfate*] 325 mg PO DAILY tab 12/23/18 Linaclotide [Linzess] 290 mcg PO DAILY 06/10/19 L.acidoph,Paracasei, B.lactis [Probiotic] 1 cap PO BREAKFAST 07/26/19 Multivit with Iron,Minerals [Spectravite Senior] 1 tab PO DAILY 07/26/19 Omeprazole 40 mg PO 0630 07/26/19 Betamethasone/Propylene Glyc [Betamethasone Dp Aug 0.05% Crm] 1 liberty TOP TID PRN 07/31/20 Amlodipine Besylate [Norvasc] 5 mg PO DAILY #30 tablet 08/01/20 Atorvastatin Calcium [Lipitor] 80 mg PO DAILY #30 tablet 08/01/20 - Past Medical/Surgical History Diabetic: No -: CVA -: HTN -: CKD3 -: CAD -: Tonsillectomy -: Brett reconstructive hip -: R ankle pins -: CABG Psychosocial/ Personal History: Patient lives at home, alone is retired. - Social History Smoking Status: Never smoker Alcohol use: No CD- Drugs: No Caffeine use: Yes Place of Residence: Home Review of Systems Gastrointestinal: Constipation Physical Examination - Physical Exam General: Alert, In no apparent distress HEENT: Atraumatic, PERRLA, EOMI, Sclerae nonicteric Neck: Supple, 2+ carotid pulse no bruit, No LAD, Without JVD or thyroid abnormality Respiratory: Clear to auscultation bilaterally, Normal air movement Cardiovascular: Regular rate/rhythm, Normal S1 S2 Gastrointestinal: Normal bowel sounds, No tenderness Musculoskeletal: No tenderness Integumentary: No rashes Neurological: Normal speech, Normal strength at 5/5 x4 extr, Normal tone, Normal affect - Studies Laboratory Data (last 24 hrs) 06/29/22 20:18: PT 12.6 H, INR 1.15, APTT 24.5 06/29/22 20:18: WBC 6.60, Hgb 12.1 L, Hct 36.1 L, Plt Count 150 L 06/29/22 20:18: Sodium 141, Potassium 3.7, BUN 22 H, Creatinine 1.73 H, Glucose 96, Magnesium 2.2, Total Bilirubin 0.6, AST 9 L, ALT 15, Alkaline Phosphatase 70 Assessment and Plan - Problems (Diagnosis) (1) Syncope Current Visit: Yes Status: Acute Qualifiers: Syncope type: unspecified Qualified Code(s): R55 - Syncope and collapse (2) Bradycardia Current Visit: Yes Status: Acute (3) CKD (chronic kidney disease) Current Visit: Yes Status: Chronic Qualifiers: Chronic kidney disease stage: stage 3 (moderate) Chronic kidney disease stage 3 subtype: stage 3b (GFR 30-44) Qualified Code(s): N18.32 - Chronic kidney disease, stage 3b (4) Constipation Current Visit: Yes Status: Acute Qualifiers: Constipation type: unspecified constipation type Qualified Code(s): K59.00 - Constipation, unspecified (5) CAD (coronary artery disease) Current Visit: Yes Status: Chronic Qualifiers: Coronary Disease-Associated Artery/Lesion type: bypass graft [place] vs. transplanted heart: [place] heart Associated angina: without angina Qualified Code(s): I25.810 - Atherosclerosis of coronary artery bypass graft(s) without angina pectoris (6) HTN (hypertension) Current Visit: Yes Status: Chronic Qualifiers: Hypertension type: primary hypertension Qualified Code(s): I10 - Essential (primary) hypertension - Plan -Monitor patient on telemetry. Most recent echo without significant abnormalities. -Know to have Moderate Bilateral Carotid Bulb Plaques in the "Non- Hemodynamically Significant Range" -Cardiology consult. Patient will likely need pacemaker if bradycardia does not improve. -Check thyroid panel. Has been WNL previously. -Patient denies taking beta blockers. -Per chart review, patient has had near syncopal episodes in the past. Brain [place] and echo have been negative. -Monitor and replete electrolytes per protocol -Reconcile and continue home medications -VTE prophylaxis -Full code Discharge Plan: Home Plan to discharge in: 24 Hours - Advance Directives Does patient have a Living Will: No Does patient have a Durable POA for Healthcare: No - Code Status/Comfort Care Code Status Assessed: Yes (Full) Critical Care: No Time Spent Managing Pts Care (In Minutes): 50
[2022-06-29] MEDS ORDERED: ONDANSETRON 4 MG/2 ML VIAL IV PRN (23:14)
[2022-06-29] MEDS ORDERED: ACETAMINOPHEN 500 MG TAB PO PRN (23:14)
[2022-06-29] MEDS ORDERED: BISACODYL 10 MG RECTAL SUPP PR ONE (23:14)
[2022-06-29 23:19] VITALS: BMI 22.0
[2022-06-29 23:29] VITALS: O2SAT 100
[2022-06-30] MEDS: NA CHLORIDE 0.9% 1,000 ML IV SCH ×2 (00:06→12:34)
[2022-06-30] MEDS ORDERED: HYDRALAZINE HCL 20 MG/ML VIAL IV PRN (01:48)
[2022-06-30] MEDS ORDERED: FLEET ENEMA ADULT PR PRN (01:48)
[2022-06-30 02:32] LABS: Urine Bilirubin NEGATIVE (Negative); Urine Blood Negative (Negative); Urine Clarity Clear (Clear); Urine Color Light-Yellow (Yellow); Urine Glucose NEGATIVE (Negative); Urine Protein NEGATIVE (Negative); Urine Urobilinogen Normal (Normal)
[2022-06-30 04:38] LABS: Hematocrit 37.1 % (39.6-49.0); Lymphocytes % 13.8 % (15.3-44.8); MCV 92.8 fL (80-100); MPV 10.6 fL (7.6-11.3); RBC Red Blood Cell Count 3.99 M/uL (4.33-5.43)
[2022-06-30 05:17] LABS: Albumin 3.2 g/dL (3.4-5.0); Bilirubin Total 0.8 mg/dL (0.2-1.0); Magnesium 2.3 mg/dL (1.8-2.4); Protein, Total 6.7 g/dL (6.4-8.2); Thyroid Stimulating Hormone 3.12 uIU/mL (0.360-3.740)
--- NOTE | 2022-06-30 16:53 | EKG ---
Test Date: 2022-06-29 Test Time: 18:44:08 Software Development Intern: MEASUREMENT RESULTS: Intervals: Rate: 44 AK: 208 QRSD: 90 QT: 518 QTc: 442 [place]: P: 14 AK: 208 QRS: 7 T: -25 INTERPRETIVE STATEMENTS: Marked sinus bradycardia Nonspecific ST abnormality Abnormal ECG Compared to ECG 04/22/2022 17:17:41 ST (T wave) deviation now present Electronically Signed On 06-30-22 16:52:18 CDT by Sherwin Douglass
--- NOTE | 2022-06-30 17:26 | CON ---
Date of Consultation: 06/30/2022 Reason For Consultation: Bradycardia. History Of Present Illness: A 72-year-old male, history of severe hypertension, coronary artery dise ase status post CABG, chronic kidney disease and chronic alcoholism, who was brought in after a synco pal episode. Apparently, the patient was at the bar ate and drank alcohol and passed out. Ambulance was called, said that they could not palpate a pulse; however, in the emergency room, he was fully a lert and awake and is in sinus bradycardia at 44, blood pressure was good. I saw him by bedside. He could not give me any good history and reviewing his home medication, he is not on any beta-gaby. Past Medical History: As outlined above in the HPI. Medications: Refer to reconciliation sheet for detailed list. Allergies: NO KNOWN DRUG ALLERGIES. Family History: No premature coronary artery disease or cancer. Social History: Does not smoke, but he drinks alcohol. Does not use any drugs. Review of Systems: All systems reviewed and they were negative except what mentioned in HPI. Past Surgical History: CABG. Physical Examination: Vital Signs: Reviewed. His temperature is 98.2, heart rate is running between 50 and 60, breathing at 16, blood pressure is 132/72, saturating 99% on room air. General: Pleasant elderly male, in no apparent distress. Head and Neck: Pupils are equal, reactive to light. Intact eye movements. No JVD. No cervical lym phadenopathy. Neck is supple. Thyroid is not enlarged. Lungs: Clear to auscultation bilaterally. No rhonchi, wheezing, or crackles. No accessory muscle u se. Heart: Irregular, but bradycardic. Abdomen: Soft, nontender. Bowel sounds positive. No organomegaly. No masses or hernia. No rigidi ty or rebound. Extremities: No edema, clubbing, or cyanosis. Intact pulses. Skin: No rash. Neurologic: Alert, awake, oriented x3. No acute focal deficits appreciated. Investigations: His BUN is 20, creatinine 1.66. Troponin is negative. Hemoglobin 12.4. Assessment And Recommendations: 1.Sinus bradycardia. Reviewed his EKG. There is no heart block and the patient had syncopal episod e, likely it is unrelated to his bradycardia and it is likely alcohol intoxication; however, he has a significant cardiac history, so repeat another troponin today and also recommend to ambulate the [facility] ient in a fast pace and see his heart rate response. If heart rate goes up appropriately and increas ed demand, then no further cardiac workup will be needed and likely it is not the etiology for his sy ncope. I believe his syncope is due to drinking and being dehydrated. 2.Acute on chronic kidney failure, likely dehydration. I recommend gentle hydration overnight at 50 cc/hour of normal saline and reassess labs in the morning. 3.Known coronary artery disease, history of coronary artery bypass graft in the past. First troponi n is negative. Do another set to assure that there is no cardiac event. The patient denies having a ny chest pain. SR/MODL Voice ID: [id number] Report ID: [id number]
--- NOTE | 2022-06-30 18:20 | P.DS ---
Admission Date: 06/29/22 Discharge Date: 06/30/22 Disposition: ROUTINE DISCHARGE Discharge Condition: FAIR Reason for Admission: Symptomatic Bradycardia - Problems (1) Bradycardia Current Visit: Yes Status: Acute (2) Syncope Current Visit: Yes Status: Acute Qualifiers: Syncope type: unspecified Qualified Code(s): R55 - Syncope and collapse (3) CAD (coronary artery disease) Current Visit: Yes Status: Chronic Qualifiers: Coronary Disease-Associated Artery/Lesion type: bypass graft [place] vs. transplanted heart: [place] heart Associated angina: without angina Qualified Code(s): I25.810 - Atherosclerosis of coronary artery bypass graft(s) without angina pectoris Brief History of Present Illness: Patient is a 72-year-old male with history of CVA, hypertension, CAD s/p CABG, and CKD 3B who presented to the ED status post syncopal episode. Patient stated that he had been drinking alcohol at a bar, was eating and just passed out. EMS states that they were initially unable to palpate pulses upon arrival. Patient was completely awake and alert in the ED. His only complaint is that he is constipated. EKG showed sinus bradycardia with a rate of 44. Chest xray and head CT were negative. Labs are significant for BUN 22 and creatinine 1.73. Heart rate was in the 40s. Patient was placed under observation for further evaluation. Hospital Course: Patient placed under observation on the medical floor. Initial troponin was negative. Heart rate was in the 50s-60s during the hospital stay. Patient was seen and evaluated by cardiology-Dr. Douglass, EKG reviewed and shows sinus bradycardia, no heart block. Dr. Douglass recommended reevaluating patient heart rate response to activity. Patient heart rate improved 71 with activity. Repeat troponin negative. Patient has chronic kidney disease stage III. Cre atinine is currently at baseline. No further cardiac work-up or intervention if his heart rate improved with activity per cardiology. Vitals are stable, patient is currently asymptomatic. He is deemed stable for discharge. Vital Signs/Physical Exam: Temp Pulse Resp BP Pulse Ox 98.1 F 56 16 106/60 99 06/30/22 16:00 06/30/22 16:00 06/30/22 16:00 06/30/22 16:00 06/30/22 16:00 General: Alert, In no apparent distress, Oriented x3 HEENT: Mucous membr. moist/pink Neck: JVD not distended Respiratory: Clear to auscultation bilaterally, Normal air movement Cardiovascular: Regular rate/rhythm, Normal S1 S2 Gastrointestinal: Normal bowel sounds, Soft and benign, Non-distended, No tenderness Musculoskeletal: No swelling Integumentary: No rashes, No erythema Neurological: Normal strength at 5/5 x4 extr Laboratory Data at Discharge: WBC 7.60 K/uL (4.3-10.9) 06/30/22 04:02 Hgb 12.4 g/dL (13.6-17.9) L 06/30/22 04:02 Hct 37.1 % (39.6-49.0) L 06/30/22 04:02 Plt Count 152 K/uL (152-406) 06/30/22 04:02 PT 12.6 SECONDS (9.5-12.5) H 06/29/22 20:18 INR 1.15 06/29/22 20:18 APTT 24.5 SECONDS (24.3-36.9) 06/29/22 20:18 Sodium 139 mmol/L (136-145) 06/30/22 04:02 Potassium 4.0 mmol/L (3.5-5.1) 06/30/22 04:02 BUN 20 mg/dL (7-18) H 06/30/22 04:02 Creatinine 1.66 mg/dL (0.55-1.3) H 06/30/22 04:02 Glucose 95 mg/dL (74-106) 06/30/22 04:02 Phosphorus 3.0 mg/dL (2.5-4.9) 06/30/22 04:02 Magnesium 2.3 mg/dL (1.8-2.4) 06/30/22 04:02 Total Bilirubin 0.8 mg/dL (0.2-1.0) 06/30/22 04:02 AST 13 U/L (15-37) L 06/30/22 04:02 ALT 14 U/L (12-78) 06/30/22 04:02 Alkaline Phosphatase 69 U/L (45-117) 06/30/22 04:02 Triglycerides 193 mg/dL (<150) H 06/30/22 04:02 Cholesterol 163 mg/dL (<200) 06/30/22 04:02 HDL Cholesterol 28 mg/dL (40-60) L 06/30/22 04:02 Cholesterol/HDL Ratio 5.82 06/30/22 04:02 Home Medications: Aspirin 2 tab PO DAILY 06/14/18 Clopidogrel Bisulfate [Plavix*] 75 mg PO DAILY tablet 12/23/18 Docusate/Senna [Senokot-S*] 2 tab PO BEDTIME tab 12/23/18 Ferrous Sulfate [Ferrous Sulfate*] 325 mg PO DAILY tab 12/23/18 Linaclotide [Linzess] 290 mcg PO DAILY 06/10/19 L.acidoph,Paracasei, B.lactis [Probiotic] 1 cap PO BREAKFAST 07/26/19 Multivit with Iron,Minerals [Spectravite Senior] 1 tab PO DAILY 07/26/19 Omeprazole 40 mg PO 0630 07/26/19 Betamethasone/Propylene Glyc [Betamethasone Dp Aug 0.05% Crm] 1 liberty TOP TID PRN 07/31/20 Amlodipine Besylate [Norvasc] 5 mg PO DAILY #30 tablet 08/01/20 Atorvastatin Calcium [Lipitor] 80 mg PO DAILY #30 tablet 08/01/20 Diet: AHA Activity: Fall precautions Followup: Unknown,U [Primary Care Provider] - 1-2 Weeks
[2022-06-30 21:21] VITALS: BP 134/75; TEMP 97.6
== END 2022-06-30 21:30 | disposition home or self-care (01) ==
LOC: ER 18:35 → 4TH 21:43
PROVIDERS: ADMIT Internal Medicine; ATTEND Internal Medicine
DX: R00.1 Bradycardia, unspecified (principal); R55 Syncope and collapse; N17.9 Acute kidney failure, unspecified; N18.32 Chronic kidney disease, stage 3b; K59.00 Constipation, unspecified; I25.810 Atherosclerosis of coronary artery bypass graft(s) without angina pectoris; E86.0 Dehydration; I10 Essential (primary) hypertension; Z20.822 Contact with and (suspected) exposure to COVID-19; Z86.73 Personal history of transient ischemic attack (TIA), and cerebral infarction without residual deficits; Z95.1 Presence of aortocoronary bypass graft
CPT/HCPCS: 93005; 85025 ×2; 80048; 36415; 80320; 83735 ×2; 84100; 85610; 80061; 80076; 85730; 84443; 81003 ×2; 84484 ×2; 84439; 80053; 70450; 71045; 99285; 87811; J7030 ×2; G0378 ×2